=== PATIENT | male | born 1975 | race Caucasian/White ===

== ENCOUNTER 2018-02-10 05:28 | Inpatient (IN) | payer MEDICAID, SELFPAY ==
[2018-02-10] VITALS (23 sets, daily range): BP systolic 92–140; BP diastolic 44–76; PULSE 89–117; RESP 12–25; TEMP 36.4–37.6; O2SAT 96–100; BMI 20.2; BMI 20.5
--- NOTE | 2018-02-10 05:31 | EKG12_ITS ---
Test Reason : TACHYCARDIA Blood Pressure : / mmHG Vent. Rate : 219 BPM Atrial Rate : 219 BPM P-R Int : 000 ms QRS Dur : 086 ms QT Int : 240 ms P-R-T Axes : 067 025 045 degrees QTc Int : 458 ms Sinus rhythm T wave abnormality, consider anterior ischemia Abnormal ECG Confirmed by GOOD GEORGE, RADHA ([id number]), magazine editor FERMIN ARAYA ([id number] on 02/13/2018 3:01:11 PM Referred By: RU Confirmed By:RADHA FUNK MD
[2018-02-10 05:41] LABS: Bedside Glucose > 500 mg/dL (70-110)
[2018-02-10] MEDS: 0.9% Normal Saline 1,000 ML 999 ML IV ×2 (05:50→07:00)
[2018-02-10 06:06] LABS: Allen Test POS; Base Excess -16 mmol/L (-2 to +2); Blood Gas Specimen Type ART; O2 Delivery Device Room Air; PO2 108 mmHG (75-100); SITE L Radial; SO2 98 % (95-99); Time Given 555; Total Carbon Dioxide 11 mmol/L; pCO2 18.5 mmHg (35-45); pH 7.34 (7.35-7.45)
[2018-02-10 06:31] LABS: Bedside Glucose > 500 mg/dL (70-110)
[2018-02-10 06:34] LABS: Absolute Lymphocyte Count 1.98 X10^3/ul (0.83-4.51); Absolute Neutrophil Count 20.6 X10^3/uL (2.0-7.7); Basophil# 0.03 X10^3/uL; Basophil% 0.1 % (0-1); Hematocrit 42.9 % (40-54); Hemoglobin 14.5 g/dl (13.0-16.5); Lymphocyte # 1.98 X10^3/ul (4.0); Lymphocyte % 7.8 % (19-41); Mean Corp Hgb Conc 33.8 g/gl (32-36); Mean Corpuscular Hgb 32.4 pg (27.0-32.0); Mean Platelet Vol. 10.8 fl (6.2-12.0); Monocyte# 2.44 X10^3/uL; Monocyte% 9.7 % (0-10); Neutrophil % 81.6 % (47-70); Platelet Count 319 K/mm3 (150-450); RBC Distribution Width CV 13.1 % (11.6-14.6); RBC Distribution Width SD 45.6 fl (35.1-43.9); Red Blood Count 4.47 M/mm3 (4.6-6.2); White Blood Count 25.2 K/mm3 (4.4-11.0)
[2018-02-10 06:35] LABS: Anion Gap 36 (5-15); BUN 25 mg/dL (7-18); Chloride 77 mmol/L (98-107); Creatinine, Serum 1.67 mg/dL (0.70-1.30); Differential Indicated SCAN CRITERIA MET; EST Glomerular Filtration Rate 48 mL/min (>60); Est Glom Filt Rate - Afr Amer 58 mL/min (>60); Estimated Creatinine Clearance 55.66 ml/min; Glucose 616 mg/dL (74-106); POSITIVE COUNT NO; POSITIVE DIFFERENTIAL YES; POSITIVE MORPHOLOGY YES; Potassium 5.3 mmol/L (3.5-5.1); Sodium Level 125 mmol/L (136-145)
--- NOTE | 2018-02-10 06:40 | ED.VISSUMM ---
- ER Visit Summary Date of Service: 02/10/18 Chief Complaint: [Vomiting] History of Present Illness: The patient is a 42 M [presents the emergency department with vomiting that started around 7 PM yesterday. Patient states that he is vomited more than 10 times. Patient denies any diarrhea. Patient denies any abdominal pain. Patient last checked his blood sugar about 3 hours ago and it was 320.] Physical Examination: [HEENT-PERRLA, EOMI. Cranial nerves II through XII grossly intact. TMs clear. Mucous membranes dry. No adenopathy. Cardiovascular-regular and tachycardic. No murmurs auscultated. Lungs-clear to auscultation, chest wall stable without crepitus or subcu emphysema Abdomen-normoactive bowel sounds, soft, nontender, no rebound or rigidity, no peritoneal signs. Extremities-intact ?4, normal range of motion, normal pulses, atraumatic] Test Results: [EKG obtained shows sinus rhythm with a ventricular rate of 110 bpm with some nonspecific ST changes. When compared with prior EKG from November 14, 2016 no new changes noted. CBC with differential obtained showed a white blood cell count of 25,000 hemoglobin 14.5 hematocrit 43 platelets 319. Chemistry showed a sodium 125 potassium 5.3 chloride 77 CO2 12 glucose 616 BUN 25 creatinine 1.67. Patient had moderate acetone in the serum. ABG showed pH of 7.339 CO2 was 18 bicarb 9.9 sat 98% on room air.] Emergency Department Course and Treatment: [IV lines established patient was given a liter normal same fluid bolus and patient was started on an insulin drip at 0.1 U/kg.] Treatment Plan: [Admit to ICU. I spoke with vocational rehabilitation counselor Dr. Bangura. Patient will be discussed with hospitalist.] I suspect the elevated white blood cell count likely reactive as patient really has not had any recent illness or fevers. Disposition: [Admit] Impression: [Diabetic ketoacidosis] This note was generated with [employer] dictation software. It may contain incorrect words, spelling, and punctuation that were not noted in review of the chart prior to signing ED Disposition - Plan for ED Patient: Chief Complaint: Nausea/Vomiting Referrals: Moni Cintron MD [Primary Care Provider] -
--- NOTE | 2018-02-10 06:44 | ED.DCSUM_ITS ---
- ER Visit Summary Date of Service: 02/10/18 Chief Complaint: [Vomiting] History of Present Illness: The patient is a 42 M [presents the emergency department with vomiting that started around 7 PM yesterday. Patient states that he is vomited more than 10 times. Patient denies any diarrhea. Patient denies any abdominal pain. Patient last checked his blood sugar about 3 hours ago and it was 320.] Physical Examination: [HEENT-PERRLA, EOMI. Cranial nerves II through XII grossly intact. TMs clear. Mucous membranes dry. No adenopathy. Cardiovascular-regular and tachycardic. No murmurs auscultated. Lungs-clear to auscultation, chest wall stable without crepitus or subcu emphysema Abdomen-normoactive bowel sounds, soft, nontender, no rebound or rigidity, no peritoneal signs. Extremities-intact ?4, normal range of motion, normal pulses, atraumatic] Test Results: [EKG obtained shows sinus rhythm with a ventricular rate of 110 bpm with some nonspecific ST changes. When compared with prior EKG from November 14, 2016 no new changes noted. CBC with differential obtained showed a white blood cell count of 25,000 hemoglobin 14.5 hematocrit 43 platelets 319. Chemistry showed a sodium 125 potassium 5.3 chloride 77 CO2 12 glucose 616 BUN 25 creatinine 1.67. Patient had moderate acetone in the serum. ABG showed pH of 7.339 CO2 was 18 bicarb 9.9 sat 98% on room air.] Emergency Department Course and Treatment: [IV lines established patient was given a liter normal same fluid bolus and patient was started on an insulin drip at 0.1 U/kg.] Treatment Plan: [Admit to ICU. I spoke with route aide Dr. Bangura. Patient will be discussed with hospitalist.] I suspect the elevated white blood cell count likely reactive as patient really has not had any recent illness or fevers. Disposition: [Admit] Impression: [Diabetic ketoacidosis] This note was generated with [employer] dictation software. It may contain incorrect words, spelling, and punctuation that were not noted in review of the chart prior to signing ED Disposition - Plan for ED Patient: Chief Complaint: Nausea/Vomiting Referrals: Moni Cintron MD [Primary Care Provider] -
[2018-02-10 06:53] LABS: Differential Comment SCANNED
[2018-02-10 07:00] LABS: Bedside Glucose > 500 mg/dL (70-110)
--- NOTE | 2018-02-10 07:18 | NURSING ---
DR ASPEN VEGA
[2018-02-10 07:19] LABS: Mucous, Urine 0 SEEN /hpf (<or=2+); Red Blood Cells-Urine 0 SEEN /hpf (0-5); White Blood Cells 0 SEEN /hpf (0-5)
--- NOTE | 2018-02-10 07:25 | HP.PCM_ITS ---
Problem List (1) DKA (diabetic ketoacidoses) Status: Acute Qualifiers: (2) Dental caries Status: Acute (3) CAD (coronary artery disease) Status: Chronic Qualifiers: (4) History of alcohol abuse Status: Chronic (5) Cardiomyopathy Status: Suspected Qualifiers: History of Present Illness Date of Admission: 02/10/18 Chief Complaint: I think I am in DKA The patient is a 42 year old M with a past medical history of diabetes mellitus , alcoholism, cardiomyopathy, or dental hygiene coronary artery disease who presented to the emergency department at [facility] on 02/10/18 stating he thought he was in DKA. Vital signs at presentation to the emergency room were temp 97.6, pulse rate 117, blood pressure 140/76, respiratory rate 22 and he was 100% saturated on room air. Significant lab included a elevated white blood cell count 25.2 with 82% neutrophils. Hemoglobin is 14.5 and platelets are 319,000. ABG showed a pH of 7.34 with a PCO2 of 18.5. and PO2 of 108 on RA. Sodium is 125 and potassium is 5.3 with a BUN of 25 and creatinine of 1.67. Anion gap is 36. Glucose was 616 and acetone was moderate. No UA was done. No chest x-ray was done. He is being admitted to the ICU with a diagnosis of DKA. ICU/DKA protocol has been initiated. He follows with [facility] and he tells me his last HGBA1C was 6.8. He drinks less than he used to but still has 7 shots of vodka 2-3 times a week. No fevers , chills, cough, wounds, diarrhea, no sick contacts, no dysuria but, has had polyuria. Denies any hx of Pancreatitis or cholecystitis. Past Medical History Past Medical History (Chronic Problems): Chronic Problems (Last Updated 02/08/18 @ 11:27 by Jenifer Germain) History of alcohol abuse (Chronic) CAD (coronary artery disease) (Chronic) Allergies zinc Allergy (Intermediate, Verified 02/08/18 11:14) Hives Home Medications: Ambulatory Orders Medication Instructions Recorded Aspirin [Low Dose Aspirin EC] 81 mg PO DAILY 11/14/16 lisinopril 2.5 mg tablet 2.5 mg PO QDAY #90 tab 11/02/17 blood sugar diagnostic strips See Dose Instructions .ROUTE 01/15/18 .MEDSUPPLY #120 ea escitalopram 20 mg tablet 20 mg PO QDAY 01/18/18 insulin glargine (U-100) 100 20 unit SC QDAY ml 01/18/18 unit/mL subcutaneous solution insulin lispro (U-100) 100 unit/mL See Label Instructions SC TID ml 01/18/18 subcutaneous pen levetiracetam 500 mg tablet 500 mg PO Q12H 01/18/18 mirtazapine 15 mg tablet 15 mg PO QHS 01/18/18 Surgical History: noncontributory Psychiatric History: No pertinent psych hx Lives: Spouse/ Significant Other Smoking Status: Current every day smoker Tobacco Use: Cigarettes Alcohol: Heavy Drugs: Marijuana - *Family History Maternal History Items: No pertinent history Review of Systems Constitutional: Denies: Chills, Fever, Weight Change Eyes: Denies: Blurred vision HEENT: Denies: Head Aches, Sinus Congestion, Sinus Drainage Cardiovascular: Denies: Chest Pain, Palpitations Respiratory: Denies: Cough, Shortness of breath at rest, Sputum production Gastrointestinal: Reports: Abdominal Pain, Nausea, Vomiting. Denies: Hematemesis, Hematochezia Genitourinary: Reports: Frequency, - - increased urine output the past few days. Denies: Dysuria Musculoskeletal: Denies: Joint Pain, Joint Tenderness Skin: Denies: Jaundice, Rash, Wounds Neurological: Denies: Numbness, Tingling, Focal weakness Psychiatric: Denies: Anxiety, Depression, Homicidal Ideations, Suicidal Ideations Endocrine: Denies: Change in Body Habitus Hematologic/ Lymphatic: Denies: Hx of blood clot VTE Information - Inpt Only VTE Present on Admission: No VTE Mechan Device Prophylaxis: SCD's, Knee High CLAUDIA Hose VTE Pharm Prophylaxis ordered?: Yes - Physical Exam General: Alert, Cooperative, - - a little slow to answer questions and not knowing his baseline I think he is likely encephalopathic from DKA and dehydration HEENT: Atraumatic, PERRLA, EOMI, Normocephalic Oral: No Gingival or Mucosal Lesions/ Ulcerations, Dry Mucosa Neck: Supple, No JVD, Negative Carotid Bruits Lungs: Clear to auscultation, Normal air movement, No rhonchi, No wheeze, No rales Cardiovascular: Regular rate, Regular Rhythm, Normal S1, Normal S2, No murmurs, No Ectopic Activity, No rub noted, No Gallop, Tachycardic Abdomen: Bowel Sounds Present, Soft, Non-Distended, Tender - mild tenderness to palpation but, no guarding with palpation Extremities: No clubbing, No cyanosis, No edema, No Calf Tenderness, Diminished Peripheral Pulses Skin: No rashes, No breakdown Musculoskeletal: No Muscle Wasting Neurological: Cranial nerves II-XII grossly intact, Neuro grossly intact Psych/Mental Status: Appropriate Vital Signs Temp Pulse Resp BP Pulse Ox 97.6 F L 108 H 18 114/44 L 96 02/10/18 05:33 02/10/18 06:59 02/10/18 06:59 02/10/18 06:59 02/10/18 06:59 Oxygen Delivery Method Room Air Weight: 149 lb 0.52 oz Body Mass Index (BMI) 20.2 Finger Stick Blood Glucose 545 Laboratory Tests Past 24 Hrs 02/10/18 02/10/18 02/10/18 05:45 05:45 05:45 WBC 25.2 H RBC 4.47 L Hgb 14.5 Hct 42.9 MCV 96.0 H MCH 32.4 H MCHC 33.8 RDW 13.1 RDW Differential 45.6 H Plt Count 319 MPV 10.8 Immature Gran % (Auto) 0.800 Neut % (Auto) 81.6 H Lymph % (Auto) 7.8 L [place] % (Auto) 9.7 Eos % (Auto) 0.0 Baso % (Auto) 0.1 Absolute Neuts (auto) 20.6 H Absolute Lymphs (auto) 1.98 Total Counted Not Reportable Differential Comment SCANNED Diff Path Review May foll Specimen Type Sample Site pH Bicarbonate Actual POC Total CO2 Base Excess O2 Saturation ABG pCO2 ABG pO2 Anurag Test O2 Delivery Device Blood Gas Notified Whom Blood Gas Notified Time Sodium 125 L Potassium 5.3 H Chloride 77 L Carbon Dioxide 12.0 L Anion Gap 36 H BUN 25 H Creatinine 1.67 H Estim Creat Clear Calc 55.66 Est GFR (MDRD) Af Amer 58 L Est GFR (MDRD) Non-Af 48 L BUN/Creatinine Ratio 15.0 Glucose 616 H* Calcium 8.0 L Acetone Level MODERATE H 02/10/18 02/10/18 05:45 05:54 WBC RBC Hgb Hct MCV MCH MCHC RDW RDW Differential Plt Count MPV Immature Gran % (Auto) Neut % (Auto) Lymph % (Auto) [place] % (Auto) Eos % (Auto) Baso % (Auto) Absolute Neuts (auto) Absolute Lymphs (auto) Total Counted Differential Comment Diff Path Review Specimen Type ART Sample Site L Radial pH 7.34 L Bicarbonate Actual 10.0 L POC Total CO2 11 Base Excess -16 L O2 Saturation 98 ABG pCO2 18.5 L* ABG pO2 108 H Anurag Test POS O2 Delivery Device Room Air Blood Gas Notified Whom ED Blood Gas Notified Time 555 Sodium Pending Potassium Pending Chloride Pending Carbon Dioxide Pending Anion Gap Pending BUN Pending Creatinine Pending Estim Creat Clear Calc Est GFR (MDRD) Af Amer Pending Est GFR (MDRD) Non-Af Pending BUN/Creatinine Ratio Pending Glucose Pending Calcium Pending Acetone Level POC Glucose 02/10/18 02/10/18 02/10/18 06:54 06:23 05:36 POC Glucose > 500 H* > 500 H* > 500 H* Assessment/Plan Impressions 1. DKA 2. DM I 3. Heavy alcohol use 4. tobacco dependence 5. Hyponatremia - due to severe dehydration 6. ELIZABETH 7. Hx of CAD with elevated troponin - Tall peaked T waves in the precordial leads - suspect due to hypokalemia but may also be seen with ischemia. will order CE's 8. Leukocytosis - likely due to stress - no obvious source of infection and he is afebrile 9. Proteinuria 10. Hypocalcemia 11. seizure disorder - on Keppra Admit to the ICU ICU/DKA protocol initiated DVT prophylaxis with Lovenox and SCD's NPO CE's - no chest pain but with tall peaked T waves on the EKG and he has a hx of CAD and we have no reason for DKA? recheck lab in the AM Smoking cessation counselling given Alcohol cessation counselling given - has been to rehab in the past
[2018-02-10 07:27] LABS: Color, Urine Yellow (Yellow); Glucose, Dipstick 1000 mg/dl (Normal); Leukocyte Esterase-Dipstick Negative /ul (Negative); Nitrite-Dipstick Negative (Negative); Occult Blood-Urine 10 /ul (Negative); Protein-Dipstick 15 mg/dl (Negative); Urine Bilirubin Dipstick Negative (Negative); Urine Clarity Clear (Clear); Urine Urobilinogen Normal (Normal)
[2018-02-10 07:28] LABS: Ketone-Dipstick 150 mg/dl (Negative)
[2018-02-10 07:37] LABS: Bacteria RARE /hpf (None Seen); Squamous Epithelial Cells - UA 0-5 SEEN /hpf (0-5)
--- NOTE | 2018-02-10 07:37 | NURSING ---
DR LOUISE IN ER
--- NOTE | 2018-02-10 07:42 | NURSING ---
ICU DKA, ELIZABETH SEMENTI
--- NOTE | 2018-02-10 07:56 | ED.RN ---
bg 455 ([id number]) FROM LAST INSULIN. INSULIN DRIP DECREASED PER PROTOCOL FROM 4.7 TO 0.7UNITS PER HOUR
[2018-02-10 08:05] LABS: Bedside Glucose 455 mg/dL (70-110)
--- NOTE | 2018-02-10 08:41 | NURSING ---
ICU7
[2018-02-10 08:47] LABS: Alcohol, Blood (Medical)-Serum < 3.0 mg/dL
[2018-02-10] MEDS: ChlorproMAZINE 50 MG/2 ML Ampul 25 MG IM (08:49)
[2018-02-10 09:01] LABS: Bedside Glucose 402 mg/dL (70-110)
--- NOTE | 2018-02-10 10:15 | RAD_ITS ---
STUDY: X-RAY CHEST REASON FOR EXAM: Male, 42 years old. Leukocytosis TECHNIQUE: Single view of the chest was obtained COMPARISON: November 04, 2016 FINDINGS: No lung consolidation, pleural effusion or pneumothorax. Cardiac size is within normal limits. Osseous structures demonstrate no acute abnormalities. Perihilar calcified granuloma. RAD/Chest 1 View (Portable) IMPRESSION: Mild pulmonary vascular congestion. No evidence for focal airspace consolidation. Electronically Signed: Richard Frazier, at 10:44 EDT Tel , Service support ,
[2018-02-10 11:06] LABS: Bedside Glucose 370 mg/dL (70-110)
[2018-02-10] MEDS: 0.9% Normal Saline 1,000 ML 500 ML IV (11:12)
[2018-02-10 11:16] LABS: AST(SGOT) 61 U/L (15-37); Alanine Aminotransfer ALT/SGPT 38 U/L (16-61); Albumin, Serum 3.9 g/dL (3.2-5.0); Alkaline Phosphatase 98 U/L (45-117); Bilirubin, Direct 0.24 mg/dL (0.00-0.30); Globulin 2.7 g/dL (2.2-4.2); Protein, Total 6.6 g/dL (6.4-8.2)
[2018-02-10 11:21] LABS: Anion Gap 25 (5-15); BUN 24 mg/dL (7-18); Calcium,Total 6.8 mg/dL (8.5-10.1); Chloride 90 mmol/L (98-107); Creatinine, Serum 1.41 mg/dL (0.70-1.30); EST Glomerular Filtration Rate 59 mL/min (>60); Est Glom Filt Rate - Afr Amer 71 mL/min (>60); Estimated Creatinine Clearance 66.99 ml/min; Glucose 341 mg/dL (74-106); Magnesium 1.7 mg/dL (1.6-2.6); Potassium 4.8 mmol/L (3.5-5.1); Sodium Level 127 mmol/L (136-145)
[2018-02-10 11:21] LABS: Bedside Glucose 362 mg/dL (70-110)
[2018-02-10 11:22] LABS: Hemoglobin A1c 8.9 % (4.2-6.3)
[2018-02-10] MEDS: Enoxaparin 40 MG/0.4 ML Syringe SC (12:12)
[2018-02-10 13:05] LABS: Amphetamine Urine VISTA NEGATIVE (<1000 ng/mL); Barbiturate Urine VISTA NEGATIVE (< 200 ng/mL); Benzodiazepine Urine VISTA NEGATIVE (< 200 ng/mL); Cocaine Urine VISTA NEGATIVE (< 300 ng/mL); Ecstacy Urine VISTA NEGATIVE (< 500 ng/mL); Methadone Urine VISTA NEGATIVE (< 300 ng/mL); PCP Urine VISTA NEGATIVE (< 25 ng/mL); THC Urine VISTA NEGATIVE (< 50 ng/mL); Vista UDS pH Range 5
[2018-02-10 13:11] LABS: Bedside Glucose 321 mg/dL (70-110)
[2018-02-10] MEDS: 0.9% Normal Saline 1,000 ML 250 ML IV (13:30)
[2018-02-10 14:44] LABS: Anion Gap 24 (5-15); BUN 24 mg/dL (7-18); BUN/Creat Ratio 17.6 RATIO (10-20); Chloride 93 mmol/L (98-107); Creatinine, Serum 1.36 mg/dL (0.70-1.30); EST Glomerular Filtration Rate 61 mL/min (>60); Est Glom Filt Rate - Afr Amer 74 mL/min (>60); Estimated Creatinine Clearance 69.46 ml/min; Glucose 302 mg/dL (74-106); Sodium Level 129 mmol/L (136-145)
[2018-02-10 15:40] LABS: Bedside Glucose 310 mg/dL (70-110)
[2018-02-10 15:41] LABS: Bedside Glucose 302 mg/dL (70-110)
[2018-02-10 15:46] LABS: Bedside Glucose 279 mg/dL (70-110)
[2018-02-10 16:45] LABS: Bedside Glucose 235 mg/dL (70-110)
[2018-02-10] MEDS: Dext 5%-0.45% NS 1,000 ML 125 ML IV (16:45)
[2018-02-10 17:52] LABS: Bedside Glucose 258 mg/dL (70-110)
[2018-02-10 18:29] LABS: Anion Gap 17 (5-15); BUN 20 mg/dL (7-18); BUN/Creat Ratio 14.7 RATIO (10-20); Calcium,Total 6.7 mg/dL (8.5-10.1); Chloride 98 mmol/L (98-107); Creatinine, Serum 1.36 mg/dL (0.70-1.30); EST Glomerular Filtration Rate 61 mL/min (>60); Est Glom Filt Rate - Afr Amer 74 mL/min (>60); Estimated Creatinine Clearance 69.46 ml/min; Glucose 238 mg/dL (74-106); Potassium 4.1 mmol/L (3.5-5.1); Sodium Level 133 mmol/L (136-145)
[2018-02-10 18:56] LABS: Bedside Glucose 232 mg/dL (70-110)
[2018-02-10 19:56] LABS: M R Staph aureus DNA By PCR Negative (Negative); Probe Check PASS; Specimen Processing Control PASS
[2018-02-10] MEDS: 0.9% NaCl Peripheral Flush Adult/Peds IV (21:58)
[2018-02-10 22:05] LABS: Bedside Glucose 216 mg/dL (70-110)
[2018-02-10 22:05] LABS: Bedside Glucose 217 mg/dL (70-110)
[2018-02-10 22:05] LABS: Bedside Glucose 165 mg/dL (70-110)
[2018-02-10 22:24] LABS: Anion Gap 9 (5-15); BUN 17 mg/dL (7-18); BUN/Creat Ratio 13.3 RATIO (10-20); Calcium,Total 7.1 mg/dL (8.5-10.1); Chloride 101 mmol/L (98-107); Creatinine, Serum 1.28 mg/dL (0.70-1.30); EST Glomerular Filtration Rate 66 mL/min (>60); Est Glom Filt Rate - Afr Amer 79 mL/min (>60); Glucose 170 mg/dL (74-106); Potassium 3.5 mmol/L (3.5-5.1); Sodium Level 135 mmol/L (136-145)
[2018-02-10] MEDS: 0.9% NaCl IVPB Med Flush (250 mL) 15 ML IV (23:09)
[2018-02-11] VITALS (17 sets, daily range): BP systolic 96–135; BP diastolic 58–86; PULSE 72–93; RESP 12–17; TEMP 36.6–36.9; O2SAT 97–100
[2018-02-11 00:41] LABS: Bedside Glucose 144 mg/dL (70-110)
[2018-02-11 00:41] LABS: Bedside Glucose 144 mg/dL (70-110)
[2018-02-11] MEDS: Dext 5%-0.45% NS 1,000 ML 125 ML IV (02:01)
[2018-02-11 03:57] LABS: BUN 13 mg/dL (7-18); Creatinine, Serum 1.17 mg/dL (0.70-1.30); Estimated Creatinine Clearance 80.74 ml/min; Glucose 113 mg/dL (74-106)
[2018-02-11 03:58] LABS: Anion Gap 8 (5-15); BUN/Creat Ratio 11.1 RATIO (10-20); Chloride 104 mmol/L (98-107); EST Glomerular Filtration Rate 73 mL/min (>60); Est Glom Filt Rate - Afr Amer 88 mL/min (>60); Potassium 3.5 mmol/L (3.5-5.1); Sodium Level 137 mmol/L (136-145)
[2018-02-11] MEDS: 0.9% NaCl Peripheral Flush Adult/Peds IV ×2 (04:23→21:08)
--- NOTE | 2018-02-11 06:43 | PN_ITS ---
Subjective: 42-year-old male with a past medical history of diabetes mellitus type 1, coronary artery disease, tobacco dependence, heavy alcohol use and seizure disorder admitted to the hospital with DKA, dehydration and ELIZABETH. No obvious infection at admission. Troponin was 0.43 at admission and he had no chest pain but did have tall peaked T waves on the EKG and he continues to smoke. TMAX: 99.6, afebrile this morning Vital signs: Her rate has been 83-93 for the past 12 hours. Blood pressures have ranged from 92/59-100 and 12/64 for the past 12 hours. He is 99-100% saturated on room air. Fluid balance: Fluid balance since admission is +[id number]. Urine output: Urine output on 02/10/2018 was 1100 cc and he had an additional 650 overnight. Weight: Weight has increased from 151 pounds to 159 pounds. All radiologic testing was reviewed: Chest x-ray to admission showed no pulmonary vascular congestion, pleural effusions or infiltrates. All labs were personally reviewed: Bone was 0.43 at admission and has trended down to 0.2 today. Sodium is 137 today with a potassium of 3.5 and a serum bicarb of 25. Creatinine is now down to 1.17 from 1.67 at admission. Blood glucose at 3:30 AM was 113. Calcium was 7.0. Phosphorus is very low at 0.9 and the magnesium is 1.8 today. AST is 94 with an ALT of 48 which is suspicious for alcoholic hepatitis. Patient denies any history of DTs. Microbiology: Urine culture is pending Telemetry:NSR/ST, PVC's and occasional couplets Objective: denies any chest pain, shortness of breath, palpitations, nausea, abdominal pain. His only complaint today is bilateral ear pain and mild headache. Denies any dyspnea on exertion or chest discomfort with exertion in the past few months. Cannot recall when his last stress test was. EKG: Peaked T waves have resolved, no suspicious ST or T-wave changes - Physical Exam General: Alert, Oriented x3, Cooperative, No apparent distress, Well developed, Well nourished HEENT: Atraumatic, PERRLA, EOMI, Normocephalic, TM's Clear, EAC Clear, - Oral: Moist Mucosa, No Gingival or Mucosal Lesions/ Ulcerations Neck: Supple, No JVD, Negative Carotid Bruits, No Nodes, No Nuchal Rigidity, Trachea Midline Lungs: Clear to auscultation, No rhonchi, No wheeze, No rales Cardiovascular: Regular rate, Regular Rhythm, Normal S1, Normal S2, No rub noted , No Gallop Abdomen: Bowel Sounds Present, Soft, Non Tender, Non-Distended, No Hepato- splenomegaly Extremities: No clubbing, No cyanosis, No edema, Capillary Refill Less than 3 Seconds, No Calf Tenderness, Peripheral Pulses Normal Skin: No rashes, No breakdown Musculoskeletal: No Muscle Wasting Neurological: Cranial nerves II-XII grossly intact, Neuro grossly intact Psych/Mental Status: Normal Affect, Appropriate Vital Signs Temp Pulse Resp BP Pulse Ox 97.8 F 83 17 104/69 100 02/11/18 04:00 02/11/18 05:00 02/11/18 05:00 02/11/18 05:00 02/11/18 05:00 Oxygen Flow Rate (L/min) 2 Oxygen Delivery Method Room Air Weight: 159 lb 6.307 oz Body Mass Index (BMI) 20.5 Finger Stick Blood Glucose 321 Intake and Output for Last 24 Hours 02/09/18 02/10/18 02/11/18 23:59 23:59 23:59 Intake Total 3273.5 / 3273.5 Output Total 1100 / 1100 Balance 2173.5 / 2173.5 Laboratory Tests Past 24 Hrs 02/10/18 02/10/18 02/10/18 10:45 10:45 10:45 Sodium 127 L Potassium 4.8 Chloride 90 L Carbon Dioxide 12.0 L Anion Gap 25 H BUN 24 H Creatinine 1.41 H Estim Creat Clear Calc 66.99 Est GFR (MDRD) Af Amer 71 Est GFR (MDRD) Non-Af 59 L BUN/Creatinine Ratio 17.0 Glucose 341 H Hemoglobin A1c 8.9 H Calcium 6.8 L Magnesium 1.7 Total Bilirubin 1.30 H Direct Bilirubin 0.24 AST 61 H ALT 38 Alkaline Phosphatase 98 Troponin I Total Protein 6.6 Albumin 3.9 Globulin 2.7 MRSA (PCR) 02/10/18 02/10/18 02/10/18 13:15 13:15 13:22 Sodium 129 L Potassium 5.0 Chloride 93 L Carbon Dioxide 12.0 L Anion Gap 24 H BUN 24 H Creatinine 1.36 H Estim Creat Clear Calc 69.46 Est GFR (MDRD) Af Amer 74 Est GFR (MDRD) Non-Af 61 BUN/Creatinine Ratio 17.6 Glucose 302 H Hemoglobin A1c Calcium 7.0 L Magnesium Total Bilirubin Direct Bilirubin AST ALT Alkaline Phosphatase Troponin I 0.43 H Cancelled Total Protein Albumin Globulin MRSA (PCR) 02/10/18 02/10/18 02/10/18 16:45 18:00 18:00 Sodium 133 L Potassium 4.1 Chloride 98 Carbon Dioxide 18.0 L Anion Gap 17 H BUN 20 H Creatinine 1.36 H Estim Creat Clear Calc 69.46 Est GFR (MDRD) Af Amer 74 Est GFR (MDRD) Non-Af 61 BUN/Creatinine Ratio 14.7 Glucose 238 H Hemoglobin A1c Calcium 6.7 L Magnesium Total Bilirubin Direct Bilirubin AST ALT Alkaline Phosphatase Troponin I 0.40 H Total Protein Albumin Globulin MRSA (PCR) Negative 02/10/18 02/10/18 02/11/18 21:00 21:00 03:35 Sodium 135 L 137 Potassium 3.5 3.5 Chloride 101 104 Carbon Dioxide 25.0 25.0 Anion Gap 9 8 BUN 17 13 Creatinine 1.28 1.17 Estim Creat Clear Calc 73.80 80.74 Est GFR (MDRD) Af Amer 79 88 Est GFR (MDRD) Non-Af 66 73 BUN/Creatinine Ratio 13.3 11.1 Glucose 170 H 113 H Hemoglobin A1c Calcium 7.1 L 7.0 L Magnesium Total Bilirubin Direct Bilirubin AST ALT Alkaline Phosphatase Troponin I 0.30 H Total Protein Albumin Globulin MRSA (PCR) 02/11/18 03:35 Sodium Potassium Chloride Carbon Dioxide Anion Gap BUN Creatinine Estim Creat Clear Calc Est GFR (MDRD) Af Amer Est GFR (MDRD) Non-Af BUN/Creatinine Ratio Glucose Hemoglobin A1c Calcium Magnesium Total Bilirubin Direct Bilirubin AST ALT Alkaline Phosphatase Troponin I 0.20 H Total Protein Albumin Globulin MRSA (PCR) POC Glucose 02/10/18 02/10/18 02/10/18 23:57 23:03 21:56 POC Glucose 144 H 144 H 165 H 02/10/18 02/10/18 02/10/18 21:00 20:01 18:48 POC Glucose 217 H 216 H 232 H 02/10/18 02/10/18 02/10/18 17:48 16:42 15:40 POC Glucose 258 H 235 H 279 H 03/02/10/18 02/10/18 14:29 13:15 12:06 POC Glucose 302 H 310 H 321 H 02/10/18 02/10/18 02/10/18 11:15 10:14 08:54 POC Glucose 362 H 370 H 402 H 02/10/18 07:50 POC Glucose 455 H* Medical Necessity - Tobacco Use Smoking Status: Current every day smoker Tobacco Use: Cigarettes Assessment/Plan Impressions 1. DKA - resolved 2. DM I - HGBA1C is 8.9 3. Heavy alcohol use - AST> ALT, suspect possible alcoholic hepatitis 4. tobacco dependence 5. Hyponatremia 6. ELIZABETH 7. NSTEMI possibly type II due to demand ischemia - Tall peaked T waves in the precordial leads - suspect due to hyerkalemia but may also be seen with ischemia. Tall peaked T waves have resolved 8. Leukocytosis - due to stress, resolved in 24 hours and has a normal diff today as well 9. Proteinuria 10. Hypocalcemia 11. seizure disorder - on Keppra 12. Hypophosphatemia Transfer to PCU Started on a diet this AM and Insulin infusion has been discontinued Nuclear stress in the AM - if abnormal will need a cath Smoking cessation counselling given again today Continue follow up with [facility] post DC Alcohol cessation advised Supplement phosphorus Code Visit Inpatient E&M: 39731 Subs Hosp L3
--- NOTE | 2018-02-11 07:00 | EKG12_ITS ---
Test Reason : ELEV TROPONIN Blood Pressure : / mmHG Vent. Rate : 090 BPM Atrial Rate : 090 BPM P-R Int : 124 ms QRS Dur : 090 ms QT Int : 382 ms P-R-T Axes : 063 039 055 degrees QTc Int : 467 ms Normal sinus rhythm Normal ECG When compared with ECG of 10-FEB-2018 05:40, MANUAL COMPARISON REQUIRED, DATA IS UNCONFIRMED Confirmed by ALLISON SALINAS ([id number]), brands editor FERMIN ARAYA ([id number]) on 02/15/2018 2:53:03 PM Referred By: ASPEN Confirmed By:ALLISON SALINAS
[2018-02-11 07:18] LABS: Absolute Lymphocyte Count 2.25 X10^3/ul (0.83-4.51); Absolute Neutrophil Count 5.5 X10^3/uL (2.0-7.7); Eosinophil# 0.05 X10^3/uL; Eosinophils% 0.6 % (0-5); Hematocrit 32.9 % (40-54); Hemoglobin 11.6 g/dl (13.0-16.5); Lymphocyte # 2.25 X10^3/ul (4.0); Lymphocyte % 26.4 % (19-41); Mean Corp Hgb Conc 35.3 g/gl (32-36); Mean Corpuscular Hgb 32.7 pg (27.0-32.0); Mean Corpuscular Volume 92.7 fL (80-94); Mean Platelet Vol. 9.7 fl (6.2-12.0); Monocyte# 0.75 X10^3/uL; Monocyte% 8.8 % (0-10); Neutrophil # 5.46 X10^3/uL (2.7-7.7); Neutrophil % 64.1 % (47-70); Platelet Count 189 K/mm3 (150-450); RBC Distribution Width CV 12.8 % (11.6-14.6); RBC Distribution Width SD 43.5 fl (35.1-43.9); Red Blood Count 3.55 M/mm3 (4.6-6.2); White Blood Count 8.5 K/mm3 (4.4-11.0)
[2018-02-11 07:24] LABS: POSITIVE COUNT NO; POSITIVE DIFFERENTIAL NO; POSITIVE MORPHOLOGY NO
[2018-02-11 07:42] LABS: ALB/GLOB Ratio 1.3 RATIO (0.9-2.4); AST(SGOT) 94 U/L (15-37); Alanine Aminotransfer ALT/SGPT 48 U/L (16-61); Albumin, Serum 3.1 g/dL (3.2-5.0); Alkaline Phosphatase 73 U/L (45-117); Anion Gap 11 (5-15); BUN 11 mg/dL (7-18); BUN/Creat Ratio 10.1 RATIO (10-20); Calcium,Total 7.2 mg/dL (8.5-10.1); Chloride 102 mmol/L (98-107); Creatinine, Serum 1.09 mg/dL (0.70-1.30); EST Glomerular Filtration Rate 79 mL/min (>60); Est Glom Filt Rate - Afr Amer 95 mL/min (>60); Globulin 2.4 g/dL (2.2-4.2); Glucose 156 mg/dL (74-106); Magnesium 1.8 mg/dL (1.6-2.6); Potassium 3.5 mmol/L (3.5-5.1); Protein, Total 5.5 g/dL (6.4-8.2); Sodium Level 137 mmol/L (136-145)
[2018-02-11 07:59] LABS: Phosphorus 0.9 mg/dL (2.5-4.9)
[2018-02-11] MEDS: Aspirin E.C. 81 MG Tablet PO (08:24)
[2018-02-11] MEDS: Acetaminophen 325 MG Tablet 650 MG PO (08:24)
[2018-02-11 08:30] LABS: Bedside Glucose 135 mg/dL (70-110)
[2018-02-11 08:41] LABS: Bedside Glucose 179 mg/dL (70-110)
[2018-02-11] MEDS: levETIRAcetam 500 MG Tablet PO ×2 (09:50→21:07)
[2018-02-11] MEDS: Escitalopram Oxalate 20 MG Tablet PO (09:50)
[2018-02-11] MEDS: Lisinopril 2.5 MG Tablet PO (09:51)
[2018-02-11] MEDS: Enoxaparin 40 MG/0.4 ML Syringe SC (09:51)
[2018-02-11] MEDS: Aspirin 81 MG TAB.CHEW PO (09:53)
[2018-02-11 11:56] LABS: Bedside Glucose 213 mg/dL (70-110)
[2018-02-11 17:16] LABS: Bedside Glucose 119 mg/dL (70-110)
[2018-02-11] MEDS: Mirtazapine 15 MG Tablet PO (21:08)
[2018-02-11] MEDS: Na Biphos/Potassium Phosphate PACKET 1 PACKET PO (21:08)
[2018-02-12] VITALS (11 sets, daily range): BP systolic 004–133; BP diastolic 63–103; PULSE 64–88; RESP 15–63; TEMP 36.4–36.7; O2SAT 95–100
[2018-02-12 00:10] LABS: Bedside Glucose 100 mg/dL (70-110)
[2018-02-12 05:11] LABS: Hematocrit 35.3 % (40-54); Hemoglobin 12.5 g/dl (13.0-16.5); Mean Corp Hgb Conc 35.4 g/gl (32-36); Mean Corpuscular Volume 93.1 fL (80-94); Mean Platelet Vol. 9.6 fl (6.2-12.0); Platelet Count 191 K/mm3 (150-450); RBC Distribution Width CV 12.5 % (11.6-14.6); RBC Distribution Width SD 41.5 fl (35.1-43.9); Red Blood Count 3.79 M/mm3 (4.6-6.2); White Blood Count 5.8 K/mm3 (4.4-11.0)
[2018-02-12 05:31] LABS: Scan Indicated on CBC? Y/N NO
[2018-02-12 05:33] LABS: BUN 7 mg/dL (7-18); Creatinine, Serum 0.71 mg/dL (0.70-1.30); Estimated Creatinine Clearance 139.82 ml/min; Glucose 40 mg/dL (74-106)
[2018-02-12 05:34] LABS: ALB/GLOB Ratio 1.2 RATIO (0.9-2.4); AST(SGOT) 130 U/L (15-37); Alanine Aminotransfer ALT/SGPT 77 U/L (16-61); Albumin, Serum 3.1 g/dL (3.2-5.0); Alkaline Phosphatase 81 U/L (45-117); Anion Gap 10 (5-15); BUN/Creat Ratio 9.8 RATIO (10-20); Calcium,Total 8.3 mg/dL (8.5-10.1); Chloride 105 mmol/L (98-107); Cholesterol 170 mg/dL (200); EST Glomerular Filtration Rate 129 mL/min (>60); Est Glom Filt Rate - Afr Amer 156 mL/min (>60); Globulin 2.6 g/dL (2.2-4.2); High Density Lipoprotein 53 mg/dL; Magnesium 1.9 mg/dL (1.6-2.6); Phosphorus 3.3 mg/dL (2.5-4.9); Potassium 3.3 mmol/L (3.5-5.1); Protein, Total 5.7 g/dL (6.4-8.2); Sodium Level 141 mmol/L (136-145); Triglycerides 144 mg/dL; Very Low Density Lipoprotein 29 mg/dL (5-40)
[2018-02-12] MEDS: Dextrose 50%-Water 25 GM/50 ML DISP.SYRIN IV (05:37)
[2018-02-12 06:41] LABS: Bedside Glucose 113 mg/dL (70-110)
--- NOTE | 2018-02-12 07:17 | NURSING ---
Pt to stress test at this time.
[2018-02-12 08:59] LABS: PTHIN 59.1 pg/mL (18.4-80.1)
[2018-02-12] MEDS: Aspirin E.C. 81 MG Tablet PO (09:47)
[2018-02-12] MEDS: Enoxaparin 40 MG/0.4 ML Syringe SC (09:48)
[2018-02-12] MEDS: Lisinopril 2.5 MG Tablet PO (09:48)
[2018-02-12] MEDS: Escitalopram Oxalate 20 MG Tablet PO (09:48)
[2018-02-12] MEDS: levETIRAcetam 500 MG Tablet PO ×2 (09:48→22:47)
--- NOTE | 2018-02-12 09:49 | STRESSREP ---
Stress Test Report Exercise myocardial Tristen protocol. 42-year-old man with a history of chest pain. Resting EKG demonstrates sinus rhythm with a rate of 73 bpm. Resting blood pressure is 142/98 mmHg. The patient exercised according to the regular Tristen protocol for total duration of 8 minutes and 30 seconds. Patient completed 2 minutes and 30 seconds into stage III of the Tristen protocol. The maximum heart rate attained was 157 bpm which was 87% of maximum predicted heart rate maximum workload attained was 10.1 metabolic equivalents. Patient maintained sinus rhythm throughout the recording. At rest there were no ST or T-wave changes noted suggest ischemia at peak exercise no ST or T-wave changes were noted suggest ischemia no clinical angina was noted no symptoms were noted. The resting blood pressure is 148/98 with a peak blood pressure 180/90. Myocardial perfusion protocol. 12.2 mCi of sestamibi was injected at rest. The patient exercised according to regular Tristen protocol for 8 minutes and 30 seconds attaining 87% maximum predicted heart rate and a workload of 10.1 metabolic equivalents. At peak exercise 33.3 mCi of technetium 99m sestamibi was injected stress and resting images were reconstructed and compared in the short axis vertical long and horizontal long axis. Gated images were also obtained. Perfusion SPECT analysis: Review of the stress images demonstrate normal uptake of tracer noted in all areas of the myocardium. The resting images similarly demonstrated normal uptake of tracer noted in all areas of the myocardium no areas of reversibility are noted suggest ischemia no previous infarct is noted. Mild reduction of perfusion in the apex is noted on the stress and resting images of unclear significance. Gated SPECT analysis: The gated ejection fraction is noted to be 37%. There is global hypokinesis noted. Conclusion: Exercise myocardial perfusion stress test with no evidence of ischemia at a high workload. Cardiomyopathy noted.
--- NOTE | 2018-02-12 11:28 | ECHOD_ITS ---
Reason For Study: CHF Procedure This was a 2D Doppler, Color Flow transthoracic echocardiogram. Exam performed portable in ICU/CCU. Left Ventricle Normal LV size. The estimated ejection fraction is 53 %. Left ventricular systolic function is lower limits of normal. No evidence for diastolic dysfunction. No regional wall motion abnormalities noted. Right Ventricle Normal RV size. Normal systolic function. Atria Normal left atrium. Normal right atrium. Mitral Valve Normal mitral valve. Mild (1+) eccentric mitral valve insufficiency. Tricuspid Valve Normal tricuspid valve. Mild (1+) tricuspid valve insufficiency. Pulmonary artery systolic pressure is 26 mmHg. Aortic Valve Normal aortic valve. Trisinus/trileaflet aortic valve. Pulmonic Valve Normal pulmonic valve. Great Vessels Normal aortic root. The pulmonary artery is normal size. Inferior vena cava collapse with respiration. Pericardium/Pleural No pericardial effusion. MMode/2D Measurements & Calculations LVIDd: 4.9 cm IVSd: 0.93 cm Ao root diam: 3.2 cm LVIDs: 3.5 cm LVPWd: 0.97 cm LA dimension: 3.2 cm RVDd: 3.4 cm FS: 28.7 % LAV(MOD-bp): 54.9 ml LA A4 area: 21.8 cm2 RA A4 area: 15.6 cm2 LAV(MOD-bp) Indexed: 28.4 ml/m2 LAV(MOD-sp2): 43.0 ml LAV(MOD-sp4): 60.9 ml Doppler Measurements & Calculations MV E max rashad: 85.0 cm/sec Ao V2 max: 131.3 cm/sec LV V1 max: 109.4 cm/sec MV A max rashad: 56.4 cm/sec Ao max P.9 mmHg LV V1 max P.8 mmHg MV E/A: 1.5 TR max rashad: 233.5 cm/sec TR max P.9 mmHg Interpretation Summary Normal LV size. The estimated ejection fraction is 53 %. Left ventricular systolic function is lower limits of normal. No evidence for diastolic dysfunction. Mild (1+) tricuspid valve insufficiency. Ordering Physician: Tarun Oconnell Referring Physician: KRISTEN LUCAS Performed By: Leslie Whitley, RDCS, RVT
--- NOTE | 2018-02-12 11:40 | PCM.PROGNOTE ---
Subjective: Chief complaint: Follow-up after admission for DKA, acute kidney injury, non-ST elevation [place], electrolyte abnormalities and leukocytosis. Patient seen and examined. No acute events overnight. Today, he denies any symptoms. No chest pain or shortness of breath. Denied abdominal pain, nausea or vomiting. His vital signs are stable. - Physical Exam General: Alert, Oriented x3, Cooperative, No apparent distress HEENT: Atraumatic, PERRLA, EOMI Oral: Moist Mucosa, No Gingival or Mucosal Lesions/ Ulcerations Neck: Supple, No JVD, Negative Carotid Bruits, Thyroid Normal Size and Texture Lungs: Clear to auscultation, No rhonchi, No wheeze, No rales, Diminished Cardiovascular: Regular rate, Regular Rhythm, Normal S1, Normal S2, PMI Normal Abdomen: Bowel Sounds Present, Soft, Non Tender, Non-Distended, No Hepato-splenomegaly Extremities: No clubbing, No cyanosis, No edema Skin: No rashes, No breakdown Lymphatic: No Cervical, Supraclavicular, or Inguinal Adenopathy Neurological: Cranial nerves II-XII grossly intact, Neuro grossly intact Psych/Mental Status: Normal Affect, Appropriate, Alert and oriented to time, place, person, mood and affect Vital Signs Temp Pulse Resp BP Pulse Ox 98.0 F 66 17 004/69 100 02/12/18 05:08 02/12/18 07:00 02/12/18 05:08 02/12/18 05:08 02/12/18 05:08 Oxygen Flow Rate (L/min) 2 Oxygen Delivery Method Room Air Weight: 159 lb 2.78 oz Body Mass Index (BMI) 20.5 Finger Stick Blood Glucose 321 Intake and Output for Last 24 Hours 02/10/18 02/11/18 02/12/18 23:59 23:59 23:59 Intake Total 3273.5 / 3273.5 3306 / 3306 1555 / 1555 Output Total 1100 / 1100 2125 / 2125 3150 / 3150 Balance 2173.5 / 2173.5 1181 / 1181 -1595 / -1595 Microbiology Past 72 Hours 02/11/18 06:25 Urine Culture - Preliminary Urine, Clean Catch Culture exhibits no growth. Laboratory Tests Past 24 Hrs 02/11/18 02/11/18 02/12/18 06:55 06:55 04:58 WBC 5.8 RBC 3.79 L Hgb 12.5 L Hct 35.3 L MCV 93.1 MCH 33.0 H MCHC 35.4 RDW 12.5 RDW Differential 41.5 Plt Count 191 MPV 9.6 Sodium Potassium Chloride Carbon Dioxide Anion Gap BUN Creatinine Estim Creat Clear Calc Est GFR (MDRD) Af Amer Est GFR (MDRD) Non-Af BUN/Creatinine Ratio Glucose Calcium Phosphorus Magnesium Total Bilirubin AST ALT Alkaline Phosphatase Total Protein Albumin Globulin Albumin/Globulin Ratio Triglycerides Cholesterol LDL Cholesterol VLDL Cholesterol HDL Cholesterol Vitamin D 25-Hydroxy 43.0 PTH Intact 59.1 02/12/18 04:58 WBC RBC Hgb Hct MCV MCH MCHC RDW RDW Differential Plt Count MPV Sodium 141 Potassium 3.3 L Chloride 105 Carbon Dioxide 26.0 Anion Gap 10 BUN 7 Creatinine 0.71 Estim Creat Clear Calc 139.82 Est GFR (MDRD) Af Amer 156 Est GFR (MDRD) Non-Af 129 BUN/Creatinine Ratio 9.8 L Glucose 40 L* Calcium 8.3 L Phosphorus 3.3 Magnesium 1.9 Total Bilirubin 0.70 AST 130 H ALT 77 H Alkaline Phosphatase 81 Total Protein 5.7 L Albumin 3.1 L Globulin 2.6 Albumin/Globulin Ratio 1.2 Triglycerides 144 Cholesterol 170 LDL Cholesterol 88 VLDL Cholesterol 29 HDL Cholesterol 53 Vitamin D 25-Hydroxy PTH Intact POC Glucose 02/12/18 02/11/18 02/11/18 06:35 21:01 17:11 POC Glucose 113 H 100 119 H 02/11/18 11:48 POC Glucose 213 H Medical Necessity - Tobacco Use Smoking Status: Current every day smoker Tobacco Use: Cigarettes Assessment/Plan This is a 42 years old male patient admitted because of nausea and vomiting and he was found to have acute DKA, acute kidney injury, electrolyte abnormalities and mild acute non-ST elevation [place]. #1 acute DKA: Patient was on IV insulin drip. Anion gap closed, today's serum bicarb is 26 and anion gap is 10. His blood sugar has been in the range of 100-200, had one episode of hypoglycemia this morning with blood sugar 40s. He is on Levemir insulin twice daily as well as pre-meal NovoLog 3 times daily and sliding scale. His vital signs are stable. Hemoglobin A1c was 8.9. Plan to keep him on ADA diet, continue current insulin regimen. #2 acute kidney injury: Secondary to above. He has been on IV fluids, serum creatinine came back to normal. #3 hyponatremia: This is pseudohyponatremia secondary to hyperglycemia. Serum sodium is back to normal after correction of his DKA. Today's sodium is 141, normal. #4 hypomagnesemia/hypokalemia and hypophosphatemia: Both serum magnesium and phosphate replaced and corrected. Potassium is 3.3 today, still low. To give him oral K Dur, repeat serum potassium tomorrow. #5 mild acute non-ST elevation [place]: Secondary to acute illness and DKA. Troponin was borderline elevated and flat. Patient denies any chest pain. EKG revealed no acute ischemic changes. He underwent nuclear stress test today that was negative for ischemia with ejection fraction of 37% and global hypokinesis. He is on aspirin and lisinopril. Plan for 2D echocardiogram. 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 Back in 2015, his ejection fraction was 10%. He had an echocardiogram on April, that showed ejection fraction 60%. Today, stress test revealed ejection fraction of 37%. No evidence of acute CHF. He is on aspirin and lisinopril. Plan for 2D echocardiogram. #7 type 1 diabetes mellitus: He is back on Levemir twice daily and NovoLog insulin pre-meals. Plan as above. #8 seizure disorder: Continue Keppra. #9 alcohol abuse: Patient stated that he still drinks but very rarely. He is aware that his most likely etiology of his heart problem is the alcohol drinking. He was counseled. #10 DVT prophylaxis: Subcu Lovenox. This note was generated with [employer] dictation software. It may contain incorrect words, spelling, and punctuation that were not noted in checking the note before signing. Code Visit Inpatient E&M: 50246 Subs Hosp L2
[2018-02-12 11:51] LABS: Bedside Glucose 42 mg/dL (70-110)
--- NOTE | 2018-02-12 11:51 | PN_ITS ---
Subjective: Chief complaint: Follow-up after admission for DKA, acute kidney injury, non-ST elevation [place], electrolyte abnormalities and leukocytosis. Patient seen and examined. No acute events overnight. Today, he denies any symptoms. No chest pain or shortness of breath. Denied abdominal pain, nausea or vomiting. His vital signs are stable. - Physical Exam General: Alert, Oriented x3, Cooperative, No apparent distress HEENT: Atraumatic, PERRLA, EOMI Oral: Moist Mucosa, No Gingival or Mucosal Lesions/ Ulcerations Neck: Supple, No JVD, Negative Carotid Bruits, Thyroid Normal Size and Texture Lungs: Clear to auscultation, No rhonchi, No wheeze, No rales, Diminished Cardiovascular: Regular rate, Regular Rhythm, Normal S1, Normal S2, PMI Normal Abdomen: Bowel Sounds Present, Soft, Non Tender, Non-Distended, No Hepato- splenomegaly Extremities: No clubbing, No cyanosis, No edema Skin: No rashes, No breakdown Lymphatic: No Cervical, Supraclavicular, or Inguinal Adenopathy Neurological: Cranial nerves II-XII grossly intact, Neuro grossly intact Psych/Mental Status: Normal Affect, Appropriate, Alert and oriented to time, place, person, mood and affect Vital Signs Temp Pulse Resp BP Pulse Ox 98.0 F 66 17 004/69 100 02/12/18 05:08 02/12/18 07:00 02/12/18 05:08 02/12/18 05:08 02/12/18 05:08 Oxygen Flow Rate (L/min) 2 Oxygen Delivery Method Room Air Weight: 159 lb 2.78 oz Body Mass Index (BMI) 20.5 Finger Stick Blood Glucose 321 Intake and Output for Last 24 Hours 02/10/18 02/11/18 02/12/18 23:59 23:59 23:59 Intake Total 3273.5 / 3273.5 3306 / 3306 1555 / 1555 Output Total 1100 / 1100 2125 / 2125 3150 / 3150 Balance 2173.5 / 2173.5 1181 / 1181 -1595 / -1595 Microbiology Past 72 Hours 02/11/18 06:25 Urine Culture - Preliminary Urine, Clean Catch Culture exhibits no growth. Laboratory Tests Past 24 Hrs 02/11/18 02/11/18 02/12/18 06:55 06:55 04:58 WBC 5.8 RBC 3.79 L Hgb 12.5 L Hct 35.3 L MCV 93.1 MCH 33.0 H MCHC 35.4 RDW 12.5 RDW Differential 41.5 Plt Count 191 MPV 9.6 Sodium Potassium Chloride Carbon Dioxide Anion Gap BUN Creatinine Estim Creat Clear Calc Est GFR (MDRD) Af Amer Est GFR (MDRD) Non-Af BUN/Creatinine Ratio Glucose Calcium Phosphorus Magnesium Total Bilirubin AST ALT Alkaline Phosphatase Total Protein Albumin Globulin Albumin/Globulin Ratio Triglycerides Cholesterol LDL Cholesterol VLDL Cholesterol HDL Cholesterol Vitamin D 25-Hydroxy 43.0 PTH Intact 59.1 02/12/18 04:58 WBC RBC Hgb Hct MCV MCH MCHC RDW RDW Differential Plt Count MPV Sodium 141 Potassium 3.3 L Chloride 105 Carbon Dioxide 26.0 Anion Gap 10 BUN 7 Creatinine 0.71 Estim Creat Clear Calc 139.82 Est GFR (MDRD) Af Amer 156 Est GFR (MDRD) Non-Af 129 BUN/Creatinine Ratio 9.8 L Glucose 40 L* Calcium 8.3 L Phosphorus 3.3 Magnesium 1.9 Total Bilirubin 0.70 AST 130 H ALT 77 H Alkaline Phosphatase 81 Total Protein 5.7 L Albumin 3.1 L Globulin 2.6 Albumin/Globulin Ratio 1.2 Triglycerides 144 Cholesterol 170 LDL Cholesterol 88 VLDL Cholesterol 29 HDL Cholesterol 53 Vitamin D 25-Hydroxy PTH Intact POC Glucose 02/12/18 02/11/18 02/11/18 06:35 21:01 17:11 POC Glucose 113 H 100 119 H 02/11/18 11:48 POC Glucose 213 H Medical Necessity - Tobacco Use Smoking Status: Current every day smoker Tobacco Use: Cigarettes Assessment/Plan This is a 42 years old male patient admitted because of nausea and vomiting and he was found to have acute DKA, acute kidney injury, electrolyte abnormalities and mild acute non-ST elevation [place]. #1 acute DKA: Patient was on IV insulin drip. Anion gap closed, today's serum bicarb is 26 and anion gap is 10. His blood sugar has been in the range of 100- 200, had one episode of hypoglycemia this morning with blood sugar 40s. He is on Levemir insulin twice daily as well as pre-meal NovoLog 3 times daily and sliding scale. His vital signs are stable. Hemoglobin A1c was 8.9. Plan to keep him on ADA diet, continue current insulin regimen. #2 acute kidney injury: Secondary to above. He has been on IV fluids, serum creatinine came back to normal. #3 hyponatremia: This is pseudohyponatremia secondary to hyperglycemia. Serum sodium is back to normal after correction of his DKA. Today's sodium is 141, normal. #4 hypomagnesemia/hypokalemia and hypophosphatemia: Both serum magnesium and phosphate replaced and corrected. Potassium is 3.3 today, still low. To give him oral K Dur, repeat serum potassium tomorrow. #5 mild acute non-ST elevation [place]: Secondary to acute illness and DKA. Troponin was borderline elevated and flat. Patient denies any chest pain. EKG revealed no acute ischemic changes. He underwent nuclear stress test today that was negative for ischemia with ejection fraction of 37% and global hypokinesis. He is on aspirin and lisinopril. Plan for 2D echocardiogram. 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 Back in 2015, his ejection fraction was 10%. He had an echocardiogram on April, that showed ejection fraction 60%. Today, stress test revealed ejection fraction of 37%. No evidence of acute CHF. He is on aspirin and lisinopril. Plan for 2D echocardiogram. #7 type 1 diabetes mellitus: He is back on Levemir twice daily and NovoLog insulin pre-meals. Plan as above. #8 seizure disorder: Continue Keppra. #9 alcohol abuse: Patient stated that he still drinks but very rarely. He is aware that his most likely etiology of his heart problem is the alcohol drinking. He was counseled. #10 DVT prophylaxis: Subcu Lovenox. This note was generated with [employer] dictation software. It may contain incorrect words, spelling, and punctuation that were not noted in checking the note before signing. Code Visit Inpatient E&M: 44459 Subs Hosp L2
[2018-02-12 12:44] LABS: Pathologist Review Reviewed
--- NOTE | 2018-02-12 14:14 | CASEMGMT ---
DC Plan: home on discharge with family support. Gallito DAVISN RN ACM
[2018-02-12] MEDS: Na Biphos/Potassium Phosphate PACKET 1 PACKET PO ×2 (14:32→22:47)
[2018-02-12 16:30] LABS: Bedside Glucose 89 mg/dL (70-110)
[2018-02-12 16:35] LABS: Bedside Glucose 373 mg/dL (70-110)
[2018-02-12] MEDS: 0.9% NaCl Peripheral Flush Adult/Peds IV (22:49)
[2018-02-12 23:00] LABS: Bedside Glucose 292 mg/dL (70-110)
[2018-02-13] MEDS: Mirtazapine 15 MG Tablet PO (00:38)
[2018-02-13 03:00] VITALS: BP 118/74; PULSE 57; PULSE 86; RESP 13; TEMP 36.8; O2SAT 100
[2018-02-13 04:27] LABS: Anion Gap 6 (5-15); BUN 10 mg/dL (7-18); BUN/Creat Ratio 13.3 RATIO (10-20); Calcium,Total 8.6 mg/dL (8.5-10.1); Chloride 103 mmol/L (98-107); Creatinine, Serum 0.75 mg/dL (0.70-1.30); EST Glomerular Filtration Rate 121 mL/min (>60); Est Glom Filt Rate - Afr Amer 146 mL/min (>60); Estimated Creatinine Clearance 132.37 ml/min; Glucose 150 mg/dL (74-106); Potassium 3.7 mmol/L (3.5-5.1); Sodium Level 140 mmol/L (136-145)
[2018-02-13] MEDS: Na Biphos/Potassium Phosphate PACKET 1 PACKET PO (06:35)
[2018-02-13 06:46] LABS: Bedside Glucose 62 mg/dL (70-110)
[2018-02-13 07:00] VITALS: PULSE 60
[2018-02-13 08:26] VITALS: BP 129/86; PULSE 64; RESP 10; TEMP 36.8; O2SAT 100
[2018-02-13] MEDS: Aspirin E.C. 81 MG Tablet PO (08:33)
[2018-02-13] MEDS: levETIRAcetam 500 MG Tablet PO (08:34)
--- NOTE | 2018-02-13 08:57 | PCM.DC ---
You will use the following diet at home:: Calorie/Carbohydrate Controlled (specify 1200, 1400, etc) - 1800 gill, Cardiac Your food should be the consistency of: Regular Discharge Activity: Return to Normal Activity Weight Bearing Status: Weight bearing as tolerated Call your doctor if you observe: Fever of 101 or Higher, Shortness of breath, Dizziness, Fainting spells, Chest pain, Increased palpitations (irregular heartbeat), Uncontrolled pain Instructions: Diabetes and Alcohol Consumption, Using a Blood Sugar Log, How to Check Your Blood Sugar Allergies/Adverse Reactions: Allergies zinc Allergy (Intermediate, Verified 02/08/18 11:14) Hives Medications to take at Discharge Aspirin [Low Dose Aspirin EC] 81 mg PO DAILY 11/14/16 lisinopril 2.5 mg tablet 2.5 mg PO QDAY #90 tab 11/02/17 blood sugar diagnostic strips See Dose Instructions .ROUTE .MEDSUPPLY #120 ea 01/15/18 escitalopram 20 mg tablet 20 mg PO QDAY 01/18/18 levetiracetam 500 mg tablet 500 mg PO Q12H 01/18/18 mirtazapine 15 mg tablet 15 mg PO QHS 01/18/18 Insulin Glargine,Hum.rec.anlog [Lantus] 20 units SQ QHS 02/13/18 Insulin Lispro [Humalog KwikPen] See Protocol SQ ACHS 02/13/18 Primary Care Physician: Moni Cintron MD [Primary Care Provider] - Please follow up with your Primary Care Physician in: 2 weeks. Please Follow Up With: Dory Phillips NP-C When: 1 week.
[2018-02-13] MEDS: Escitalopram Oxalate 20 MG Tablet PO (09:28)
[2018-02-13] MEDS: Lisinopril 2.5 MG Tablet PO (09:28)
[2018-02-13 10:10] VITALS: BP 129/86; PULSE 64; RESP 10; TEMP 36.8; O2SAT 100
--- NOTE | 2018-02-13 15:09 | PCM.DC.SUM ---
Discharge Date and Diagnosis Date of Admission: 02/10/18 Date of Discharge: 02/13/18 - Primary Discharge Diagnosis #1 diabetic ketoacidosis. #2 acute kidney injury. #3 hyponatremia. #4 hypomagnesemia/hypokalemia/hypophosphatemia. #5 mild acute non-ST elevation [place]. #6 nonischemic cardiomyopathy. - Secondary Discharge Diagnosis Chronic Problems (Last Updated 02/08/18 @ 11:27 by Jenifer Germain) History of alcohol abuse (Chronic) CAD (coronary artery disease) (Chronic) Hospital Course and Treatment Imaging Results: Clinical Impression(s) from Imaging Studies Chest X-Ray 02/10/18 10:15 IMPRESSION: Mild pulmonary vascular congestion. No evidence for focal airspace consolidation. Electronically Signed: Richard Freddie, at 10:44 EDT Tel , Service support , Operations: None Procedures: 2-D Echocardiogram, EKG, Stress test Summary of Care Provided: Patient seen and examined on the day of discharge and appeared to be stable to be discharged home. He has no complaints. His vital signs are stable. - Physical Exam General: Alert, Oriented x3, Cooperative, No apparent distress. HEENT: Atraumatic, PERRLA, EOMI. Neck: Supple, No JVD, Negative Carotid Bruits, Trachea Midline, Thyroid Normal. Lungs: Diminished breath sounds bilateral, otherwise clear, No rhonchi, No wheeze, No rales. Cardiovascular: Regular rate, Regular Rhythm, Normal S1, Normal S2, PMI Normal. Abdomen: Bowel Sounds Present, Soft, Non Tender, Non-Distended, No Hepato-splenomegaly. Extremities: No clubbing, No cyanosis, No edema Skin: No rashes, No breakdown Neurological: Neuro grossly intact Vital Signs are stable. Hospital course: This is a 42 years old male patient admitted because of nausea and vomiting and he was found to have acute DKA, acute kidney injury, electrolyte abnormalities and mild acute non-ST elevation [place]. #1 acute DKA: Treated in the ICU with DKA protocol with IV insulin drip. Anion gap closed and serum bicarb is down to 26 and anion gap is 10. This is attributed to noncompliance. He was resumed back on his home doses of Lantus and pre-meal Humalog. His blood sugar has been fluctuating with 1 or 2 episodes of hypoglycemia. Hemoglobin A1c was 8.9. Patient discharged home in a stable medical condition, discharged on Lantus 20 units nightly as before and recommended to use Humalog sliding scale, plan to follow-up with endocrinology in 1 week. #2 acute kidney injury: Secondary to above. Treated with IV fluids and his kidney function returned back to normal.. #3 hyponatremia: This is pseudohyponatremia secondary to hyperglycemia. Serum sodium is back to normal after correction of his DKA. Discharge sodium is 140, normal. #4 hypomagnesemia/hypokalemia and hypophosphatemia: Serum magnesium, potassium and phosphorus replaced and corrected per protocol. #5 mild acute non-ST elevation [place]: Secondary to acute illness and DKA. Troponin was borderline elevated and flat. Patient denies any chest pain throughout the admission. EKG revealed no acute ischemic changes. He underwent nuclear stress test today that was negative for ischemia with ejection fraction of 37% and global hypokinesis. Continued on aspirin and lisinopril. 2D echocardiogram showed normal LV size, ejection fraction of 53%, normal left ventricular systolic function. 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 Back in 2015, his ejection fraction was 10%. He had an echocardiogram on April, that showed ejection fraction 60%. Today, stress test revealed ejection fraction of 37%. 2D echocardiogram done on this admission as above and showed ejection fraction of 53%. There was no evidence of acute decompensated CHF. #7 type 1 diabetes mellitus: Discharged back on Levemir twice daily and NovoLog insulin pre-meals. Plan as above. #8 seizure disorder: Continued on Keppra. Patient discharged home in a stable medical condition, continued on his home doses of Lantus and pre-meal NovoLog without any changes, recommended to check blood sugar at least 3-4 times daily, follow-up with endocrinology with [facility] phillips in 1 week, follow-up with PCP in 2 weeks. This note was generated with [employer] software. It may contain incorrect words, spelling, and punctuation that were not noted in checking the note before signing. Discharge Activity: Return to Normal Activity Weight Bearing Status: Weight bearing as tolerated Call your doctor if you observe: Fever of 101 or Higher, Shortness of breath, Dizziness, Fainting spells, Chest pain, Increased palpitations (irregular heartbeat), Uncontrolled pain Home Medications: Medications to take at Discharge Aspirin [Low Dose Aspirin EC] 81 mg PO DAILY 11/14/16 lisinopril 2.5 mg tablet 2.5 mg PO QDAY #90 tab 11/02/17 blood sugar diagnostic strips See Dose Instructions .ROUTE .MEDSUPPLY #120 ea 01/15/18 escitalopram 20 mg tablet 20 mg PO QDAY 01/18/18 levetiracetam 500 mg tablet 500 mg PO Q12H 01/18/18 mirtazapine 15 mg tablet 15 mg PO QHS 01/18/18 Insulin Glargine,Hum.rec.anlog [Lantus] 20 units SQ QHS 02/13/18 Insulin Lispro [Humalog KwikPen] See Protocol SQ ACHS 02/13/18 Primary Care Physician: Moni Cintron MD [Primary Care Provider] - Please follow up with your Primary Care Physician in: 2 weeks. Please Follow Up With: Dory Phillips NP-C When: 1 week. Please Follow Up With: Moni Cintron MD Patient Instructions: Diabetes and Alcohol Consumption, Using a Blood Sugar Log, How to Check Your Blood Sugar Disposition: Home Minutes spent on discharge:: 33 Patient Condition:: Stable Medical Necessity - Tobacco Use Smoking Status: Current every day smoker Tobacco Use: Cigarettes Meaningful Use Info Meaningful Use Diagnoses (Choose all that apply): None applicable Code Visit Inpatient E&M: 67962 Disch Hosp
--- NOTE | 2018-02-13 15:17 | DS.PCM_ITS ---
Discharge Date and Diagnosis Date of Admission: 02/10/18 Date of Discharge: 02/13/18 - Primary Discharge Diagnosis #1 diabetic ketoacidosis. #2 acute kidney injury. #3 hyponatremia. #4 hypomagnesemia/hypokalemia/hypophosphatemia. #5 mild acute non-ST elevation TX. #6 nonischemic cardiomyopathy. - Secondary Discharge Diagnosis Chronic Problems (Last Updated 02/08/18 @ 11:27 by Jenifer Germain) History of alcohol abuse (Chronic) CAD (coronary artery disease) (Chronic) Hospital Course and Treatment Imaging Results: Clinical Impression(s) from Imaging Studies Chest X-Ray 02/10/18 10:15 IMPRESSION: Mild pulmonary vascular congestion. No evidence for focal airspace consolidation. Electronically Signed: Richard Freddie, at 10:44 EDT Tel , Service support , Operations: None Procedures: 2-D Echocardiogram, EKG, Stress test Summary of Care Provided: Patient seen and examined on the day of discharge and appeared to be stable to be discharged home. He has no complaints. His vital signs are stable. - Physical Exam General: Alert, Oriented x3, Cooperative, No apparent distress. HEENT: Atraumatic, PERRLA, EOMI. Neck: Supple, No JVD, Negative Carotid Bruits, Trachea Midline, Thyroid Normal. Lungs: Diminished breath sounds bilateral, otherwise clear, No rhonchi, No wheeze, No rales. Cardiovascular: Regular rate, Regular Rhythm, Normal S1, Normal S2, PMI Normal. Abdomen: Bowel Sounds Present, Soft, Non Tender, Non-Distended, No Hepato- splenomegaly. Extremities: No clubbing, No cyanosis, No edema Skin: No rashes, No breakdown Neurological: Neuro grossly intact Vital Signs are stable. Hospital course: This is a 42 years old male patient admitted because of nausea and vomiting and he was found to have acute DKA, acute kidney injury, electrolyte abnormalities and mild acute non-ST elevation TX. #1 acute DKA: Treated in the ICU with DKA protocol with IV insulin drip. Anion gap closed and serum bicarb is down to 26 and anion gap is 10. This is attributed to noncompliance. He was resumed back on his home doses of Lantus and pre-meal Humalog. His blood sugar has been fluctuating with 1 or 2 episodes of hypoglycemia. Hemoglobin A1c was 8.9. Patient discharged home in a stable medical condition, discharged on Lantus 20 units nightly as before and recommended to use Humalog sliding scale, plan to follow-up with endocrinology in 1 week. #2 acute kidney injury: Secondary to above. Treated with IV fluids and his kidney function returned back to normal.. #3 hyponatremia: This is pseudohyponatremia secondary to hyperglycemia. Serum sodium is back to normal after correction of his DKA. Discharge sodium is 140, normal. #4 hypomagnesemia/hypokalemia and hypophosphatemia: Serum magnesium, potassium and phosphorus replaced and corrected per protocol. #5 mild acute non-ST elevation TX: Secondary to acute illness and DKA. Troponin was borderline elevated and flat. Patient denies any chest pain throughout the admission. EKG revealed no acute ischemic changes. He underwent nuclear stress test today that was negative for ischemia with ejection fraction of 37% and global hypokinesis. Continued on aspirin and lisinopril. 2D echocardiogram showed normal LV size, ejection fraction of 53%, normal left ventricular systolic function. 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 Back in 2015, his ejection fraction was 10%. He had an echocardiogram on April, that showed ejection fraction 60%. Today, stress test revealed ejection fraction of 37%. 2D echocardiogram done on this admission as above and showed ejection fraction of 53%. There was no evidence of acute decompensated CHF. #7 type 1 diabetes mellitus: Discharged back on Levemir twice daily and NovoLog insulin pre-meals. Plan as above. #8 seizure disorder: Continued on Keppra. Patient discharged home in a stable medical condition, continued on his home doses of Lantus and pre-meal NovoLog without any changes, recommended to check blood sugar at least 3-4 times daily, follow-up with endocrinology with [facility] in 1 week, follow-up with PCP in 2 weeks. This note was generated with [employer] software. It may contain incorrect words, spelling, and punctuation that were not noted in checking the note before signing. Discharge Activity: Return to Normal Activity Weight Bearing Status: Weight bearing as tolerated Call your doctor if you observe: Fever of 101 or Higher, Shortness of breath, Dizziness, Fainting spells, Chest pain, Increased palpitations (irregular heartbeat), Uncontrolled pain Home Medications: Medications to take at Discharge Aspirin [Low Dose Aspirin EC] 81 mg PO DAILY 11/14/16 lisinopril 2.5 mg tablet 2.5 mg PO QDAY #90 tab 11/02/17 blood sugar diagnostic strips See Dose Instructions .ROUTE .MEDSUPPLY #120 ea escitalopram 20 mg tablet 20 mg PO QDAY 01/18/18 levetiracetam 500 mg tablet 500 mg PO Q12H 01/18/18 mirtazapine 15 mg tablet 15 mg PO QHS 01/18/18 Insulin Glargine,Hum.rec.anlog [Lantus] 20 units SQ QHS 02/13/18 Insulin Lispro [Humalog KwikPen] See Protocol SQ ACHS 02/13/18 Primary Care Physician: Moni Cintron MD [Primary Care Provider] - Please follow up with your Primary Care Physician in: 2 weeks. Please Follow Up With: Dory Phillips NP-C When: 1 week. Please Follow Up With: Moni Cintron MD Patient Instructions: Diabetes and Alcohol Consumption, Using a Blood Sugar Log , How to Check Your Blood Sugar Disposition: Home Minutes spent on discharge:: 33 Patient Condition:: Stable Medical Necessity - Tobacco Use Smoking Status: Current every day smoker Tobacco Use: Cigarettes Meaningful Use Info Meaningful Use Diagnoses (Choose all that apply): None applicable Code Visit Inpatient E&M: 28263 Disch Hosp
[2018-02-14 14:33] LABS: Vitamin D 1,25-Dihydroxy 89.6 pg/mL (19.9-79.3)
== END 2018-02-13 10:25 | disposition home or self-care (01) | DRG 294 ==
LOC: ED 06:37 → ICU 08:51
PROVIDERS: Admitting Provider Internal Medicine; Emergency Provider Emergency Medicine; Family Provider Internal Medicine; PCP Internal Medicine; Visit Provider Hospitalist
DX: E10.10 Type 1 diabetes mellitus with ketoacidosis without coma (principal); I21.4 Non-ST elevation (NSTEMI) myocardial infarction; N17.9 Acute kidney failure, unspecified; E83.42 Hypomagnesemia; E83.39 Other disorders of phosphorus metabolism; I42.6 Alcoholic cardiomyopathy; E87.1 Hypo-osmolality and hyponatremia; E86.0 Dehydration; F10.10 Alcohol abuse, uncomplicated; F17.210 Nicotine dependence, cigarettes, uncomplicated; E87.6 Hypokalemia; I25.10 Atherosclerotic heart disease of native coronary artery without angina pectoris; G40.909 Epilepsy, unspecified, not intractable, without status epilepticus
CPT/HCPCS: 36600; 71045; 78452; 80048; 80053; 80061; 80076; 80307; 80320; 81001; 82009; 82306; 82652; 82803; 82962; 83036; 83735; 83970; 84100; 84484; 85025; 85027; 87086; 87641; 93005; 93017; 93306; 99284; A9500; J7030; J7040; J7050; A4216; G0480; J7799

== ENCOUNTER 2018-10-01 22:45 | Inpatient (IN) | payer MEDICAID, SELFPAY ==
[2018-10-01 22:46] VITALS: BP 144/80; PULSE 113; RESP 24; TEMP 36.7; O2SAT 100; BMI 20.9
[2018-10-01 22:51] LABS: Bedside Glucose > 500 mg/dL (70-110)
[2018-10-01 23:12] VITALS: O2SAT 100
--- NOTE | 2018-10-01 23:21 | EKG12_ITS ---
Test Reason : Blood Pressure : / mmHG Vent. Rate : 159 BPM Atrial Rate : 117 BPM P-R Int : 142 ms QRS Dur : 108 ms QT Int : 342 ms P-R-T Axes : 070 074 063 degrees QTc Int : 556 ms Sinus tachycardia with frequent Premature ventricular complexes Junctional ST depression, probably normal Borderline ECG Peaked T waves-hyperkalemia Confirmed by GOOD GEORGE, RADHA ([id number]), tape editor FERMIN ARAYA ([id number]) on 10/08/2018 3:08:35 PM Referred By: KYLE Confirmed By:RADHA FUNK MD
[2018-10-01] MEDS: 0.9% Normal Saline 1,000 ML 999 ML IV (23:57)
[2018-10-01] MEDS: Ondansetron 4 MG/2 ML Vial IV (23:59)
[2018-10-02] VITALS (30 sets, daily range): BP systolic 100–127; BP diastolic 45–66; PULSE 92–151; RESP 12–30; TEMP 36.5–37.7; O2SAT 99–100; BMI 20.9
--- NOTE | 2018-10-02 00:03 | ED.RN ---
PT C/O RIGHT SIDE CHEST BURNING. CALLED FOR REPEAT EKG
[2018-10-02 00:05] LABS: Bacteria 0 SEEN /hpf (None Seen); Mucous, Urine 0 SEEN /hpf (<or=2+); Red Blood Cells-Urine 0 SEEN /hpf (0-5); Squamous Epithelial Cells - UA 0 SEEN /hpf (0-5); White Blood Cells 0 SEEN /hpf (0-5)
[2018-10-02 00:06] LABS: Blood Gas Specimen Type VEN; O2 Delivery Device Nasal Can; VBG BASE EXCESS -24 mmol/L (-1.0-3.5); VBG Bicarbonate 6 mmol/L (22-26); VBG Oxygen Content 7 mmol/L (23-33); VBG PO2 32 mmHg (25-40); VBG SO2 41 % (50-70); VBG pCO2 21.5 mmHg (41-51); VBG pH 7.06 (7.32-7.42)
--- NOTE | 2018-10-02 00:13 | NURSING ---
EKG DONE AND SHOWED FREQUENT PVC'S. HE IS STILL TACHY. INSULIN STARTED. DR. KYLE BREWER.
[2018-10-02 00:19] LABS: Color, Urine Straw (Yellow); Glucose, Dipstick 1000 mg/dl (Normal); Leukocyte Esterase-Dipstick Negative /ul (Negative); Nitrite-Dipstick Negative (Negative); Occult Blood-Urine 10 /ul (Negative); Protein-Dipstick 30 mg/dl (Negative); Urine Bilirubin Dipstick Negative (Negative); Urine Clarity Clear (Clear); Urine Urobilinogen Normal (Normal)
--- NOTE | 2018-10-02 00:40 | NURSING ---
APICAL PULSE IS 117 EVEN THOUGHT SAP TRAINER IS READING 180'S AND DOUBLE COUNTING AT TIMES. DR. WRIGHT IS AWARE AND PATIENT IS NOT HAVING ANY SYMPTOMS OR CHEST PAIN.
[2018-10-02 00:42] LABS: Hematocrit 45.9 % (40-54); Hemoglobin 15.4 g/dl (13.0-16.5); Mean Corpuscular Hgb 33.4 pg (27.0-32.0); Mean Corpuscular Volume 99.6 fL (80-94); Red Blood Count 4.61 M/mm3 (4.6-6.2)
[2018-10-02 00:43] LABS: Differential Indicated SCAN CRITERIA MET; Mean Corp Hgb Conc 33.6 g/gl (32-36); Mean Platelet Vol. 11.3 fl (6.2-12.0); POSITIVE COUNT YES; POSITIVE DIFFERENTIAL YES; POSITIVE MORPHOLOGY YES; Platelet Count 367 K/mm3 (150-450); RBC Distribution Width CV 12.6 % (11.6-14.6); RBC Distribution Width SD 45.6 fl (35.1-43.9)
[2018-10-02 00:44] LABS: Absolute Lymphocyte Count 2.32 X10^3/ul (0.83-4.51); Absolute Neutrophil Count 28.1 X10^3/uL (2.0-7.7); Basophil# 0.11 X10^3/uL; Basophil% 0.3 % (0-1); Eosinophil# 0.04 X10^3/uL; Eosinophils% 0.1 % (0-5); Lymphocyte # 2.32 X10^3/ul (4.0); Lymphocyte % 6.8 % (19-41); Monocyte# 2.96 X10^3/uL; Monocyte% 8.6 % (0-10); Neutrophil # 28.12 X10^3/uL (2.7-7.7); Neutrophil % 81.9 % (47-70)
[2018-10-02 00:45] LABS: Differential Comment SEE COMMENTS; Platelet Estimate ADEQUATE (ADEQ)
[2018-10-02 00:46] LABS: Anisocytosis RARE; Macrocytosis RARE; Toxic Granulation RARE
[2018-10-02 00:48] LABS: White Blood Count 34.3 K/mm3 (4.4-11.0)
[2018-10-02 00:50] LABS: Transitional Epithelial - Ur 0-5 SEEN /hpf (0-5)
[2018-10-02 00:51] LABS: Ketone-Dipstick 150 mg/dl (Negative)
--- NOTE | 2018-10-02 01:15 | ED.RN ---
AT THIS TIME LAB CALLED CRITICAL LABS ON THIS PATIENT, POTASSIUM 6.2, CO2 7 AND GLUCOSE 800, DR WRIGHT NOTIFIED, NFO GIVEN AT THIS TIME
--- NOTE | 2018-10-02 01:15 | NURSING ---
BEDSIDE BLOOD GLUCOSE TEST DONE AND READ HIGH. SPECIMEN SENT TO THE LAB FOR BMP.
[2018-10-02 01:16] LABS: Anion Gap 34 (5-15); BUN 33 mg/dL (7-18); BUN/Creat Ratio 17.9 RATIO (10-20); Calcium,Total 7.8 mg/dL (8.5-10.1); Chloride 83 mmol/L (98-107); Creatinine, Serum 1.84 mg/dL (0.70-1.30); EST Glomerular Filtration Rate 43 mL/min (>60); Est Glom Filt Rate - Afr Amer 52 mL/min (>60); Estimated Creatinine Clearance 51.71 ml/min; Glucose 800 mg/dL (74-106); Magnesium 2.2 mg/dL (1.6-2.6); Phosphorus 8.8 mg/dL (2.5-4.9); Potassium 6.2 mmol/L (3.5-5.1); Sodium Level 124 mmol/L (136-145)
--- NOTE | 2018-10-02 01:31 | PCM.HP.STD ---
Problem List (1) Nicotine abuse Status: Chronic (2) Thrombocytopenia Status: Chronic (3) Diabetes type I Status: Chronic (4) Cardiomyopathy Status: Suspected Qualifiers: (5) History of alcohol abuse Status: Chronic (6) CAD (coronary artery disease) Status: Chronic Qualifiers: (7) Dental caries Status: Chronic (8) DKA (diabetic ketoacidoses) Status: Acute Qualifiers: Diabetes mellitus type: type 1 Diabetes mellitus complication detail: without coma Qualified Code(s): E10.10 - Type 1 diabetes mellitus with ketoacidosis without coma History of Present Illness Date of Admission: 10/02/18 Chief Complaint: hyperglycemia, SOB, DKA The patient is a 43 year old male patient with a significant past medical history of diabetes present to the ER with acute shortness of breath and nausea. Onset began this afternoon at about noon. He states he was not drinking alcohol this time as he did 7 months ago when he last had DKA. Venous pH is 7.06 and anion gap is 34 with serum acetone positive. Glucose initially is 800mg /dL. The patient will be admitted to the ICU for management of DKA. Past Medical History Past Medical History (Chronic Problems): Chronic Problems (Last Updated 02/08/18 @ 11:27 by Jenifer Germain) Nicotine abuse (Chronic) Thrombocytopenia (Chronic) Diabetes type I (Chronic) History of alcohol abuse (Chronic) CAD (coronary artery disease) (Chronic) Dental caries (Chronic) Medical History: Medical History (Last Updated 02/08/18 @ 11:27 by Jenifer Germain) Cardiomyopathy (Suspected) I42.9 CAD (coronary artery disease) (Chronic) I25.10 Acute renal failure N17.9 Alcohol abuse F10.10 Anxiety F41.9 Depression F32.9 Diabetes type 1, controlled E10.9 dx : 08/2001 last exacerbation : dka : 05/13 hypoglycemic episode : never er visit : 05/13 Dilated cardiomyopathy I42.0 Elevated liver enzymes R74.8 H/O sepsis Z86.19 Hyponatremia E87.1 Lactic acidosis E87.2 Left atrial enlargement I51.7 Mycoplasma pneumonia J15.7 NSVT (nonsustained ventricular tachycardia) I47.2 Neuropathy G62.9 Prolonged QT interval R94.31 Seizure disorder G40.909 Steatosis of liver K76.0 Thrombocytopenia D69.6 Allergies zinc Allergy (Intermediate, Verified 04/27/18 09:36) Hives Home Medications: Ambulatory Orders Medication Instructions Recorded Aspirin [Low Dose Aspirin EC] 81 mg PO DAILY 11/14/16 lisinopril 2.5 mg tablet 2.5 mg PO QDAY #90 tab 11/02/17 blood sugar diagnostic strips See Dose Instructions .ROUTE 01/15/18 .MEDSUPPLY #120 ea levetiracetam 500 mg tablet 500 mg PO Q12H 01/18/18 mirtazapine 15 mg tablet 15 mg PO QHS 01/18/18 Insulin Lispro [Humalog KwikPen] See Protocol SQ ACHS 02/13/18 Basaglar KwikPen U-100 Insulin 100 20 unit SC QDAY #15 ml NS 04/02/18 unit/mL (3 mL) subcutaneous folic acid 800 mcg tablet 1 tab PO DAILY 30 Days #30 04/27/18 Humalog KwikPen (U- 100) Insulin See Rx Instructions SC .COMPLEX 06/18/18 100 unit/mL subcutaneous #45 ml NS Surgical History: Surgical History (Last Reviewed 04/27/18 @ 09:36 by Karla Rehman) Hx of tonsillectomy Z98.890, Z90.89 Surgical History: noncontributory Psychiatric History: No pertinent psych hx Smoking Status: Current every day smoker - *Family History Maternal Family History: Family History (Last Reviewed 04/27/18 @ 09:36 by Karla Rehman) Mother Arthritis Father Diabetes Grandfather Diabetes Grandmother Diabetes History Items: No pertinent history Review of Systems Constitutional: Denies: Chills, Fever, Weight Change HEENT: Denies: Head Aches, Sinus Congestion, Sinus Drainage Cardiovascular: Reports: Chest Pressure. Denies: Chest Pain, Palpitations Respiratory: Reports: Shortness of breath at rest. Denies: Cough, Sputum production Gastrointestinal: Reports: Nausea. Denies: Abdominal Pain, Vomiting Genitourinary: Denies: Dysuria Musculoskeletal: Denies: Joint Pain, Joint Tenderness Skin: Denies: Rash, Wounds Neurological: Denies: Numbness, Tingling, Focal weakness Psychiatric: Reports: Anxiety. Denies: Depression, Homicidal Ideations, Suicidal Ideations Hematologic/ Lymphatic: Denies: Easy Bruising, Easy Bleeding VTE Information - Inpt Only VTE Present on Admission: No VTE Mechan Device Prophylaxis: None VTE Pharm Prophylaxis ordered?: Yes - Physical Exam General: Alert, Oriented x3, Cooperative HEENT: Atraumatic, Normocephalic Neck: Supple Lungs: Clear to auscultation, Normal air movement, No rhonchi, No wheeze, No rales, Tachypneic Cardiovascular: Regular rate, Normal S1, Normal S2, No murmurs, Tachycardic Abdomen: Bowel Sounds Present, Soft, Non Tender Extremities: No edema Skin: No rashes, No breakdown Musculoskeletal: No Tenderness to Palpation of Joints or Extremities Neurological: Neuro grossly intact Psych/Mental Status: Normal Affect, Appropriate Vital Signs Temp Pulse Resp BP Pulse Ox 97.7 F L 111 H 29 H 112/63 100 10/02/18 00:54 10/02/18 00:54 10/02/18 00:54 10/02/18 00:54 10/02/18 00:54 Oxygen Flow Rate (L/min) 2 Oxygen Delivery Method Nasal Cannula Weight: 154 lb 1.65 oz Body Mass Index (BMI) 20.9 Finger Stick Blood Glucose 321 Laboratory Tests Past 24 Hrs 10/01/18 10/01/18 10/01/18 23:14 23:14 23:14 WBC 34.3 H* RBC 4.61 Hgb 15.4 Hct 45.9 MCV 99.6 H MCH 33.4 H MCHC 33.6 RDW 12.6 RDW Differential 45.6 H Plt Count 367 MPV 11.3 Immature Gran % (Auto) 2.300 H Neut % (Auto) 81.9 H Lymph % (Auto) 6.8 L [place] % (Auto) 8.6 Eos % (Auto) 0.1 Baso % (Auto) 0.3 Absolute Neuts (auto) 28.1 H Absolute Lymphs (auto) 2.32 Total Counted Not Reportable Differential Comment SEE COMMENTS Diff Path Review May foll Toxic Granulation RARE Platelet Estimate ADEQUATE Anisocytosis RARE Macrocytosis RARE Specimen Type VBG pH VBG pO2 VBG O2 Sat (Calc) VBG O2 Content VBG Base Excess POC Mix VBG pCO2 Pt Tmp O2 Delivery Device Liter Flow Blood Gas Notified Whom Sodium Cancelled Potassium Cancelled Chloride Cancelled Carbon Dioxide Cancelled Anion Gap Cancelled BUN Cancelled Creatinine Cancelled Estim Creat Clear Calc Cancelled Est GFR (MDRD) Af Amer Cancelled Est GFR (MDRD) Non-Af Cancelled BUN/Creatinine Ratio Cancelled Glucose Cancelled Calcium Cancelled Phosphorus Cancelled Magnesium Cancelled Urine Color Urine Clarity Urine pH Ur Specific [place] Urine Protein Urine Glucose (UA) Urine Ketones Urine Occult Blood Urine Nitrite Urine Bilirubin Urine Urobilinogen Ur Leukocyte Esterase Urine RBC Urine WBC Ur Squamous Epith Cells Ur Transition Epith Cell Urine Bacteria Urine Mucus Acetone Level Cancelled 10/01/18 10/01/18 10/02/18 23:56 23:57 00:25 WBC RBC Hgb Hct MCV MCH MCHC RDW RDW Differential Plt Count MPV Immature Gran % (Auto) Neut % (Auto) Lymph % (Auto) [place] % (Auto) Eos % (Auto) Baso % (Auto) Absolute Neuts (auto) Absolute Lymphs (auto) Total Counted Differential Comment Diff Path Review Toxic Granulation Platelet Estimate Anisocytosis Macrocytosis Specimen Type JAKY VBG pH 7.06 L* VBG pO2 32 VBG O2 Sat (Calc) 41 L VBG O2 Content 7 L VBG Base Excess -24 L POC Mix VBG pCO2 Pt Tmp 21.5 L O2 Delivery Device Nasal Can Liter Flow 2.0 Blood Gas Notified Whom ED MD Sodium 124 L Potassium 6.2 H* Chloride 83 L Carbon Dioxide 7.0 L* Anion Gap 34 H BUN 33 H Creatinine 1.84 H Estim Creat Clear Calc 51.71 Est GFR (MDRD) Af Amer 52 L Est GFR (MDRD) Non-Af 43 L BUN/Creatinine Ratio 17.9 Glucose 800 H* Calcium 7.8 L Phosphorus 8.8 H Magnesium 2.2 Urine Color Straw Urine Clarity Clear Urine pH 6.0 Ur Specific [place] 1.020 Urine Protein 30 H Urine Glucose (UA) 1000 H Urine Ketones 150 H Urine Occult Blood 10 H Urine Nitrite Negative Urine Bilirubin Negative Urine Urobilinogen Normal Ur Leukocyte Esterase Negative Urine RBC 0 SEEN Urine WBC 0 SEEN Ur Squamous Epith Cells 0 SEEN Ur Transition Epith Cell 0-5 SEEN Urine Bacteria 0 SEEN Urine Mucus 0 SEEN Acetone Level 10/02/18 10/02/18 00:25 01:10 WBC RBC Hgb Hct MCV MCH MCHC RDW RDW Differential Plt Count MPV Immature Gran % (Auto) Neut % (Auto) Lymph % (Auto) [place] % (Auto) Eos % (Auto) Baso % (Auto) Absolute Neuts (auto) Absolute Lymphs (auto) Total Counted Differential Comment Diff Path Review Toxic Granulation Platelet Estimate Anisocytosis Macrocytosis Specimen Type VBG pH VBG pO2 VBG O2 Sat (Calc) VBG O2 Content VBG Base Excess POC Mix VBG pCO2 Pt Tmp O2 Delivery Device Liter Flow Blood Gas Notified Whom Sodium Pending Potassium Pending Chloride Pending Carbon Dioxide Pending Anion Gap Pending BUN Pending Creatinine Pending Estim Creat Clear Calc Est GFR (MDRD) Af Amer Pending Est GFR (MDRD) Non-Af Pending BUN/Creatinine Ratio Pending Glucose Pending Calcium Pending Phosphorus Magnesium Urine Color Urine Clarity Urine pH Ur Specific [place] Urine Protein Urine Glucose (UA) Urine Ketones Urine Occult Blood Urine Nitrite Urine Bilirubin Urine Urobilinogen Ur Leukocyte Esterase Urine RBC Urine WBC Ur Squamous Epith Cells Ur Transition Epith Cell Urine Bacteria Urine Mucus Acetone Level LARGE H POC Glucose 10/01/18 22:48 POC Glucose > 500 H* Assessment/Plan All Active Problems (Last Updated 02/08/18 @ 11:27 by Jenifer Germain) DKA (diabetic ketoacidoses) (Acute) Chronic Problems (Last Updated 02/08/18 @ 11:27 by Jenifer Germain) Nicotine abuse (Chronic) Thrombocytopenia (Chronic) Diabetes type I (Chronic) History of alcohol abuse (Chronic) CAD (coronary artery disease) (Chronic) Dental caries (Chronic) Plan - admit to ICU - consult database security administrator - DKA protocol - get CXR if not done in ER - LMWH for DVT prophylaxis - nicoderm patch 14mg q day NPO on insulin drip- hold other meds for now Code Visit Inpatient E&M: 79887 Init Hosp L3
--- NOTE | 2018-10-02 01:34 | ED.RN ---
DR WRIGHT NOTIFIED OF K+, CO2, AND GLUCOSE RESULTS
[2018-10-02 01:35] LABS: Anion Gap 31 (5-15); BUN 33 mg/dL (7-18); BUN/Creat Ratio 17.9 RATIO (10-20); Calcium,Total 7.7 mg/dL (8.5-10.1); Chloride 85 mmol/L (98-107); Creatinine, Serum 1.84 mg/dL (0.70-1.30); EST Glomerular Filtration Rate 43 mL/min (>60); Est Glom Filt Rate - Afr Amer 52 mL/min (>60); Estimated Creatinine Clearance 51.71 ml/min; Glucose 682 mg/dL (74-106); Potassium 6.2 mmol/L (3.5-5.1); Sodium Level 123 mmol/L (136-145)
--- NOTE | 2018-10-02 01:50 | NURSING ---
Report received from ER. Pt room assignment [id number]. Room and nurse ready for patient.
--- NOTE | 2018-10-02 01:53 | NURSING ---
PER DR. WRIGHT AND DR. OCONNOR DO NOT ADJUST INSULIN YET D/T GLUCOSE DROPPING TO [phone] FROM 800 .
--- NOTE | 2018-10-02 02:19 | RAD_ITS ---
STUDY: X-RAY CHEST REASON FOR EXAM: Male, 43 years old. Shortness of breath TECHNIQUE: Frontal view COMPARISON: 02/10/2018 FINDINGS: The lungs are clear and expanded. There is no demonstrated pleural abnormality. Normal size heart. Normal mediastinum and sherry. Normal visualized pulmonary arteries. Normal visualized aortic arch and descending thoracic aorta. Normal visualized thoracic spine. Normal visualized ribs, clavicles, and shoulders. There is no demonstrated abnormality of the visualized soft tissue structures of the upper abdomen. RAD/Chest 1 View (Portable) IMPRESSION: Normal x-ray examination of the chest. Electronically Signed: Portillo Joseph MD at 3:31 EST , Service support ,
[2018-10-02 02:26] LABS: Bedside Glucose > 500 mg/dL (70-110)
[2018-10-02 02:26] LABS: Bedside Glucose > 500 mg/dL (70-110)
--- NOTE | 2018-10-02 02:33 | ED.RN ---
REPORT GIVEN TO TEODORO LUU IN ICU.
[2018-10-02] MEDS: 0.9% Normal Saline 1,000 ML 250 ML IV (03:26)
[2018-10-02 04:26] LABS: Bedside Glucose > 500 mg/dL (70-110)
[2018-10-02 04:26] LABS: Bedside Glucose > 500 mg/dL (70-110)
[2018-10-02 04:36] LABS: Bedside Glucose 447 mg/dL (70-110)
[2018-10-02] MEDS: 0.9% NaCl Peripheral Flush Adult/Peds IV ×3 (04:38→18:15)
[2018-10-02 05:02] LABS: Absolute Lymphocyte Count 2.96 X10^3/ul (0.83-4.51); Absolute Neutrophil Count 24.7 X10^3/uL (2.0-7.7); Basophil# 0.04 X10^3/uL; Basophil% 0.1 % (0-1); Differential Indicated SCAN CRITERIA MET; Eosinophil# 0.03 X10^3/uL; Eosinophils% 0.1 % (0-5); Hematocrit 38.5 % (40-54); Hemoglobin 13.6 g/dl (13.0-16.5); Lymphocyte # 2.96 X10^3/ul (4.0); Lymphocyte % 9.5 % (19-41); Mean Corp Hgb Conc 35.3 g/gl (32-36); Mean Corpuscular Hgb 33.3 pg (27.0-32.0); Mean Corpuscular Volume 94.1 fL (80-94); Mean Platelet Vol. 9.8 fl (6.2-12.0); Monocyte# 2.98 X10^3/uL; Monocyte% 9.6 % (0-10); Neutrophil # 24.67 X10^3/uL (2.7-7.7); Neutrophil % 79.4 % (47-70); POSITIVE COUNT YES; POSITIVE DIFFERENTIAL YES; POSITIVE MORPHOLOGY YES; Platelet Count 292 K/mm3 (150-450); RBC Distribution Width CV 12.2 % (11.6-14.6); Red Blood Count 4.09 M/mm3 (4.6-6.2)
[2018-10-02 05:03] LABS: White Blood Count 31.1 K/mm3 (4.4-11.0)
[2018-10-02 05:12] LABS: Anion Gap 28 (5-15); BUN 31 mg/dL (7-18); BUN/Creat Ratio 18.2 RATIO (10-20); Calcium,Total 7.4 mg/dL (8.5-10.1); Chloride 92 mmol/L (98-107); EST Glomerular Filtration Rate 47 mL/min (>60); Est Glom Filt Rate - Afr Amer 57 mL/min (>60); Estimated Creatinine Clearance 56.29 ml/min; Glucose 367 mg/dL (74-106); Sodium Level 129 mmol/L (136-145)
[2018-10-02 05:26] LABS: Bedside Glucose 340 mg/dL (70-110)
[2018-10-02 05:27] LABS: Anisocytosis RARE; Differential Comment SEE COMMENTS; Macrocytosis RARE; Platelet Estimate ADEQUATE (ADEQ); Toxic Granulation RARE
[2018-10-02 06:06] LABS: Bedside Glucose 324 mg/dL (70-110)
--- NOTE | 2018-10-02 06:43 | CON.PCM_ITS ---
Reason for Consult Date of Consultation: 10/02/18 Reason for Consultation: DKA History of Present Illness: The patient is a 43-year-old male, with a history as outlined below, who presented to the emergency department on October 02 with complaints of nausea, vomiting and shortness of breath. The patient is a known type I diabetic. He reports compliance with his home insulin regimen. However, the patient's last hemoglobin A1c was noted to be 10.2. [facility] was noted to be afebrile, tachycardic and hemodynamically stable. Laboratory evaluation revealed elevated white blood cell count to 34,000. Chemistry profile was notable for a sodium of 124, potassium of 6.2, chloride of 83, serum bicarbonate of 7 and evidence of acute kidney injury with a creatinine of 1.84. Glucose was elevated to 800. A large serum acetone level was noted. Plain film chest x-ray revealed no acute cardiopulmonary process. The patient received supplemental IV fluid hydration was started on an insulin infusion. He was subsequently transferred to the medical intensive care unit for ongoing management. Past Medical History Past Medical History (Chronic Problems): Chronic Problems (Last Reviewed 10/02/18 @ 02:38 by Belem Wall) Nicotine abuse (Chronic) Thrombocytopenia (Chronic) Diabetes type I (Chronic) History of alcohol abuse (Chronic) CAD (coronary artery disease) (Chronic) Dental caries (Chronic) Medical History: Medical History (Last Reviewed 10/02/18 @ 02:38 by Belem Wall) Cardiomyopathy (Suspected) I42.9 CAD (coronary artery disease) (Chronic) I25.10 Acute renal failure N17.9 Alcohol abuse F10.10 Anxiety F41.9 Depression F32.9 Diabetes type 1, controlled E10.9 dx : 08/2001 last exacerbation : dka : 05/13 hypoglycemic episode : never er visit : 05/13 Dilated cardiomyopathy I42.0 Elevated liver enzymes R74.8 H/O sepsis Z86.19 Hyponatremia E87.1 Lactic acidosis E87.2 Left atrial enlargement I51.7 Mycoplasma pneumonia J15.7 NSVT (nonsustained ventricular tachycardia) I47.2 Neuropathy G62.9 Prolonged QT interval R94.31 Seizure disorder G40.909 Steatosis of liver K76.0 Thrombocytopenia D69.6 Allergies zinc Allergy (Intermediate, Verified 04/27/18 09:36) Hives Home Medications: Ambulatory Orders Medication Instructions Recorded Aspirin [Low Dose Aspirin EC] 81 mg PO DAILY 11/14/16 lisinopril 2.5 mg tablet 2.5 mg PO QDAY #90 tab 11/02/17 blood sugar diagnostic strips See Dose Instructions .ROUTE 01/15/18 .MEDSUPPLY #120 ea levetiracetam 500 mg tablet 500 mg PO Q12H 01/18/18 mirtazapine 15 mg tablet 15 mg PO QHS 01/18/18 Insulin Lispro [Humalog KwikPen] See Protocol SQ ACHS 02/13/18 Basaglar KwikPen U-100 Insulin 100 20 unit SC QDAY #15 ml NS 04/02/18 unit/mL (3 mL) subcutaneous folic acid 800 mcg tablet 1 tab PO DAILY 30 Days #30 04/27/18 Humalog KwikPen (U- 100) Insulin See Rx Instructions SC .COMPLEX 06/18/18 100 unit/mL subcutaneous #45 ml NS Surgical History: Surgical History (Last Reviewed 10/02/18 @ 02:38 by Belem Wall) Hx of tonsillectomy Z98.890, Z90.89 Surgical History: noncontributory Psychiatric History: No pertinent psych hx Smoking Status: Current every day smoker Tobacco Use: Cigarettes - *Family History Maternal Family History: Family History (Last Reviewed 10/02/18 @ 02:38 by Belem Wall) Mother Arthritis Father Diabetes Grandfather Diabetes Grandmother Diabetes History Items: No pertinent history Review of Systems Constitutional: Denies: Chills, Fever Eyes: Denies: Blurred vision, Double vision HEENT: Denies: Head Aches, Sinus Congestion, Sinus Drainage Cardiovascular: Reports: Chest Pain Respiratory: Reports: Shortness of Breath. Denies: Cough, Sputum production Gastrointestinal: Reports: Abdominal Pain, Nausea Genitourinary: Denies: Dysuria Musculoskeletal: Denies: Joint Pain, Joint Tenderness Skin: Denies: Rash, Wounds Neurological: Denies: Numbness, Tingling, Focal weakness Psychiatric: Denies: Anxiety, Depression, Homicidal Ideations, Suicidal Ideations Hematologic/ Lymphatic: Denies: Easy Bruising, Easy Bleeding Objective: The patient's most recent lab work, culture data and imaging studies have all been personally reviewed. Blood and urine cultures are pending. - Physical Exam General: Alert, Cooperative, No apparent distress HEENT: Atraumatic, PERRLA, Normocephalic Oral: Dry Mucosa Neck: Supple, No Nodes, Trachea Midline Lungs: No rhonchi, No wheeze, No rales, Diminished Cardiovascular: Normal S1, Normal S2, No murmurs, No rub noted, No Gallop, Tachycardic Abdomen: Bowel Sounds Present, Soft, Non Tender Extremities: No clubbing, No cyanosis, No edema Skin: No breakdown Musculoskeletal: No Tenderness to Palpation of Joints or Extremities, No Muscle Wasting Lymphatic: No Cervical, Supraclavicular, or Inguinal Adenopathy Neurological: Cranial nerves II-XII grossly intact, Neuro grossly intact Psych/Mental Status: Normal Affect, Appropriate Vital Signs Temp Pulse Resp BP Pulse Ox 99.0 F 106 H 21 H 116/52 L 100 10/02/18 04:00 10/02/18 06:00 10/02/18 06:00 10/02/18 06:00 10/02/18 06:00 Oxygen Flow Rate (L/min) 2 Oxygen Delivery Method Room Air Weight: 154 lb 15.759 oz Body Mass Index (BMI) 20.9 Finger Stick Blood Glucose 324 Intake and Output for Last 24 Hours 09/30/18 10/01/18 10/02/18 23:59 23:59 23:59 Intake Total 699 / 699 Output Total 800 / 800 Balance -101 / -101 Laboratory Tests Past 24 Hrs 10/01/18 10/01/18 10/01/18 23:14 23:14 23:14 WBC 34.3 H* RBC 4.61 Hgb 15.4 Hct 45.9 MCV 99.6 H MCH 33.4 H MCHC 33.6 RDW 12.6 RDW Differential 45.6 H Plt Count 367 MPV 11.3 Immature Gran % (Auto) 2.300 H Neut % (Auto) 81.9 H Lymph % (Auto) 6.8 L [place] % (Auto) 8.6 Eos % (Auto) 0.1 Baso % (Auto) 0.3 Absolute Neuts (auto) 28.1 H Absolute Lymphs (auto) 2.32 Total Counted Not Reportable Differential Comment SEE COMMENTS Diff Path Review May foll Toxic Granulation RARE Platelet Estimate ADEQUATE Anisocytosis RARE Macrocytosis RARE Specimen Type VBG pH VBG pO2 VBG O2 Sat (Calc) VBG O2 Content VBG Base Excess POC Mix VBG pCO2 Pt Tmp O2 Delivery Device Liter Flow Blood Gas Notified Whom Sodium Cancelled Potassium Cancelled Chloride Cancelled Carbon Dioxide Cancelled Anion Gap Cancelled BUN Cancelled Creatinine Cancelled Estim Creat Clear Calc Cancelled Est GFR (MDRD) Af Amer Cancelled Est GFR (MDRD) Non-Af Cancelled BUN/Creatinine Ratio Cancelled Glucose Cancelled Calcium Cancelled Phosphorus Cancelled Magnesium Cancelled Urine Color Urine Clarity Urine pH Ur Specific [place] Urine Protein Urine Glucose (UA) Urine Ketones Urine Occult Blood Urine Nitrite Urine Bilirubin Urine Urobilinogen Ur Leukocyte Esterase Urine RBC Urine WBC Ur Squamous Epith Cells Ur Transition Epith Cell Urine Bacteria Urine Mucus Acetone Level Cancelled 10/01/18 10/01/18 10/02/18 23:56 23:57 00:25 WBC RBC Hgb Hct MCV MCH MCHC RDW RDW Differential Plt Count MPV Immature Gran % (Auto) Neut % (Auto) Lymph % (Auto) [place] % (Auto) Eos % (Auto) Baso % (Auto) Absolute Neuts (auto) Absolute Lymphs (auto) Total Counted Differential Comment Diff Path Review Toxic Granulation Platelet Estimate Anisocytosis Macrocytosis Specimen Type JAKY VBG pH 7.06 L* VBG pO2 32 VBG O2 Sat (Calc) 41 L VBG O2 Content 7 L VBG Base Excess -24 L POC Mix VBG pCO2 Pt Tmp 21.5 L O2 Delivery Device Nasal Can Liter Flow 2.0 Blood Gas Notified Whom ED Sodium 124 L Potassium 6.2 H* Chloride 83 L Carbon Dioxide 7.0 L* Anion Gap 34 H BUN 33 H Creatinine 1.84 H Estim Creat Clear Calc 51.71 Est GFR (MDRD) Af Amer 52 L Est GFR (MDRD) Non-Af 43 L BUN/Creatinine Ratio 17.9 Glucose 800 H* Calcium 7.8 L Phosphorus 8.8 H Magnesium 2.2 Urine Color Straw Urine Clarity Clear Urine pH 6.0 Ur Specific [place] 1.020 Urine Protein 30 H Urine Glucose (UA) 1000 H Urine Ketones 150 H Urine Occult Blood 10 H Urine Nitrite Negative Urine Bilirubin Negative Urine Urobilinogen Normal Ur Leukocyte Esterase Negative Urine RBC 0 SEEN Urine WBC 0 SEEN Ur Squamous Epith Cells 0 SEEN Ur Transition Epith Cell 0-5 SEEN Urine Bacteria 0 SEEN Urine Mucus 0 SEEN Acetone Level 10/02/18 10/02/18 10/02/18 00:25 01:10 04:30 WBC RBC Hgb Hct MCV MCH MCHC RDW RDW Differential Plt Count MPV Immature Gran % (Auto) Neut % (Auto) Lymph % (Auto) [place] % (Auto) Eos % (Auto) Baso % (Auto) Absolute Neuts (auto) Absolute Lymphs (auto) Total Counted Differential Comment Diff Path Review Toxic Granulation Platelet Estimate Anisocytosis Macrocytosis Specimen Type VBG pH VBG pO2 VBG O2 Sat (Calc) VBG O2 Content VBG Base Excess POC Mix VBG pCO2 Pt Tmp O2 Delivery Device Liter Flow Blood Gas Notified Whom Sodium 123 L 129 L Potassium 6.2 H* 4.0 Chloride 85 L 92 L Carbon Dioxide 7.0 L* 9.0 L* Anion Gap 31 H 28 H BUN 33 H 31 H Creatinine 1.84 H 1.70 H Estim Creat Clear Calc 51.71 56.29 Est GFR (MDRD) Af Amer 52 L 57 L Est GFR (MDRD) Non-Af 43 L 47 L BUN/Creatinine Ratio 17.9 18.2 Glucose 682 H* 367 H Calcium 7.7 L 7.4 L Phosphorus Magnesium Urine Color Urine Clarity Urine pH Ur Specific [place] Urine Protein Urine Glucose (UA) Urine Ketones Urine Occult Blood Urine Nitrite Urine Bilirubin Urine Urobilinogen Ur Leukocyte Esterase Urine RBC Urine WBC Ur Squamous Epith Cells Ur Transition Epith Cell Urine Bacteria Urine Mucus Acetone Level LARGE H 10/02/18 10/02/18 04:30 04:30 WBC 31.1 H* RBC 4.09 L Hgb 13.6 Hct 38.5 L MCV 94.1 H MCH 33.3 H MCHC 35.3 RDW 12.2 RDW Differential 41.0 Plt Count 292 MPV 9.8 Immature Gran % (Auto) 1.300 H Neut % (Auto) 79.4 H Lymph % (Auto) 9.5 L [place] % (Auto) 9.6 Eos % (Auto) 0.1 Baso % (Auto) 0.1 Absolute Neuts (auto) 24.7 H Absolute Lymphs (auto) 2.96 Total Counted Not Reportable Differential Comment SEE COMMENTS Diff Path Review May foll Toxic Granulation RARE Platelet Estimate ADEQUATE Anisocytosis RARE Macrocytosis RARE Specimen Type VBG pH VBG pO2 VBG O2 Sat (Calc) VBG O2 Content VBG Base Excess POC Mix VBG pCO2 Pt Tmp O2 Delivery Device Liter Flow Blood Gas Notified Whom Sodium Potassium Chloride Carbon Dioxide Anion Gap BUN Creatinine Estim Creat Clear Calc Est GFR (MDRD) Af Amer Est GFR (MDRD) Non-Af BUN/Creatinine Ratio Glucose Calcium Phosphorus Magnesium Urine Color Urine Clarity Urine pH Ur Specific [place] Urine Protein Urine Glucose (UA) Urine Ketones Urine Occult Blood Urine Nitrite Urine Bilirubin Urine Urobilinogen Ur Leukocyte Esterase Urine RBC Urine WBC Ur Squamous Epith Cells Ur Transition Epith Cell Urine Bacteria Urine Mucus Acetone Level LARGE H POC Glucose 10/02/18 10/02/18 10/02/18 05:59 05:15 04:24 POC Glucose 324 H 340 H 447 H 10/02/18 10/02/18 10/02/18 02:59 02:14 01:04 POC Glucose > 500 H* > 500 H* > 500 H* 10/02/18 10/01/18 00:06 22:48 POC Glucose > 500 H* > 500 H* Clinical Impression(s) from Imaging Studies Chest X-Ray 10/02/18 02:19 IMPRESSION: Normal x-ray examination of the chest. Electronically Signed: Portillo Joseph MD at 3:31 EST , Service support , Assessment/Plan RECOMMENDATIONS: 1. Continue management per DKA protocol with supplemental IV fluid hydration and continuous insulin infusion. 2. Administer 2 L of LR bolus now. 3. Patient to remain n.p.o. until anion gap has been closed x2. 4. Diabetic education to be provided. 5. Aggressive electrolyte repletion as indicated. IMPRESSIONS: 1. Diabetic ketoacidosis Unclear precipitating event, although suspect a component of noncompliance, given the patient's elevated hemoglobin A1c. Although the patient's white blood cell count is elevated, this may be a leukemoid reaction, as he has been afebrile and does not have a readily identifiable source of infection. Nevertheless, for the sake of completeness, we will obtain blood and urine cultures. We will hold off on antibiotics at this time. Continue supplemental IV fluid hydration and continuous insulin infusion per DKA protocol. Continue to monitor serial electrolytes and aggressively replace potassium as needed. Patient to remain n.p.o. until anion gap has been closed x2. 2. Acute kidney injury Likely prerenal in etiology secondary to osmotic diuresis in the setting of DKA. Anticipate improvement in creatinine with IV fluid resuscitation. Urine output is appropriate at this time. There is no indication for renal replacement therapy. This note was generated with [employer] dictation software. It may contain incorrect words, spelling, and punctuation that were not noted in checking the note before signing. Code Visit Inpatient E&M: 00693 Init Hosp L3
[2018-10-02 07:15] LABS: Bedside Glucose 277 mg/dL (70-110)
[2018-10-02] MEDS: Dext 5%-0.45% NS 1,000 ML 150 ML IV (08:00)
[2018-10-02 08:01] LABS: Bedside Glucose 231 mg/dL (70-110)
[2018-10-02 08:01] LABS: Hemoglobin A1c 10.2 % (4.2-6.3)
--- NOTE | 2018-10-02 08:36 | ED.VISSUMM ---
- ER Visit Summary Date of Service: 10/02/18 Chief Complaint: Nausea vomiting shortness of breath and high blood sugars History of Present Illness: The patient is a 43 M presenting for evaluation secondary to the above. Patient is a type I diabetic. Patient states that about 10 hours ago he had a precipitous onset of severe nausea and vomiting. He states that he has had progressively elevating blood sugars, and is getting progressively more short of breath. Patient denies that he had any sort of other infectious symptoms such as fever sore throat runny nose diarrhea cough. Patient states that he has had prior similar episodes in the past. Physical Examination: Vital signs notable for heart rate of 113 respiratory rate 24. Thin male visibly tachypneic. Head normocephalic. Dry mucous membranes. Heart was tachycardic regular. Lung sounds are clear without respiratory distress. Abdomen was nontender and soft. Extremities nontender nonedematous. No skin rashes noted. Test Results: EKG demonstrates peak T waves and a rate of 159. CBC shows a white count of 34, chemistry shows a potassium of 6.2 a bicarb of 7 and anion gap of 34 and a creatinine of 1.8. ABG shows a pH of 7 Emergency Department Course and Treatment: Patient presented for evaluation secondary to vomiting in the setting of diabetes. I have a strong suspicion for DKA. IV was established on the patient was given initial 2 L normal saline. An EKG demonstrated peak T waves, so an insulin drip was started prior to receiving the patient's metabolic panel. Metabolic panel ended up showing the patient had significant DKA with a glucose in the 800s. Discussed this with hospitalist patient was admitted ICU. Disposition: Admission Impression: 1. DKA Critical care time 40 minutes This note was generated with [employer] dictation software. It may contain incorrect words, spelling, and punctuation that were not noted in review of the chart prior to signing ED Disposition - Plan for ED Patient: Disposition: Acute Care Hospital [facility] Chief Complaint: Shortness of Breath
--- NOTE | 2018-10-02 08:39 | ED.DCSUM_ITS ---
- ER Visit Summary Date of Service: 10/02/18 Chief Complaint: Nausea vomiting shortness of breath and high blood sugars History of Present Illness: The patient is a 43 M presenting for evaluation secondary to the above. Patient is a type I diabetic. Patient states that about 10 hours ago he had a precipitous onset of severe nausea and vomiting. He states that he has had progressively elevating blood sugars, and is getting progressively more short of breath. Patient denies that he had any sort of oth er infectious symptoms such as fever sore throat runny nose diarrhea cough. Patient states that he has had prior similar episodes in the past. Physical Examination: Vital signs notable for heart rate of 113 respiratory rate 24. Thin male visibly tachypneic. Head normocephalic. Dry mucous membranes. Heart was tachycardic regular. Lung sounds are clear without respiratory distress. Abdomen was nontender and soft. Extremities nontender nonedematous. No skin rashes noted. Test Results: EKG demonstrates peak T waves and a rate of 159. CBC shows a white count of 34, chemistry shows a potassium of 6.2 a bicarb of 7 and anion gap of 34 and a creatinine of 1.8. ABG shows a pH of 7 Emergency Department Course and Treatment: Patient presented for evaluation secondary to vomiting in the setting of diabetes. I have a strong suspicion for DKA. IV was established on the patient was given initial 2 L normal saline. An EKG demonstrated peak T waves, so an insulin drip was started prior to receiving the patient's metabolic panel. Metabolic panel ended up showing the patient had significant DKA with a glucose in the 800s. Discussed this with hospitalist patient was admitted ICU. Disposition: Admission Impression: 1. DKA Critical care time 40 minutes This note was generated with [employer] dictation software. It may contain incorrect words, spelling, and punctuation that were not noted in review of the chart prior to signing ED Disposition - Plan for ED Patient: Disposition: Acute Care Hospital [facility] Chief Complaint: Shortness of Breath
[2018-10-02 09:06] LABS: Bedside Glucose 289 mg/dL (70-110)
[2018-10-02] MEDS: Lactated Ringers 1,000 ML 999 ML IV ×2 (09:14→10:23)
[2018-10-02] MEDS: Enoxaparin 40 MG/0.4 ML Syringe SC (09:16)
[2018-10-02 09:17] LABS: Anion Gap 18 (5-15); BUN 27 mg/dL (7-18); Calcium,Total 7.4 mg/dL (8.5-10.1); Chloride 97 mmol/L (98-107); Creatinine, Serum 1.59 mg/dL (0.70-1.30); EST Glomerular Filtration Rate 51 mL/min (>60); Est Glom Filt Rate - Afr Amer 62 mL/min (>60); Estimated Creatinine Clearance 60.18 ml/min; Glucose 246 mg/dL (74-106); Potassium 4.4 mmol/L (3.5-5.1); Sodium Level 130 mmol/L (136-145)
--- NOTE | 2018-10-02 09:38 | CASEMGMT ---
RN CM ASSESSMENT Intro role of CM to patient in room. HGB A1c 10.2, Insulin gtt, data processor consult. PCP: Saida Specialist: COMFORT Phillips Follow up appt made for Wednesday, October 17, 2018 @ 8:45 am. appointment placed in worklist DC appts and card given to patient. PHARMACY: [facility] PRESCRIPTION COVERGE: yes TRANSPORTATION: drives, but does not have car now. Pt stated his parents will drive him if needed LIVING ARRANGEMENTS: lives independently DME: none. Pt has blood glucose monitoring equipment. States he knows how to use, but doesn't do what I should always. SW Consult:: Pt withdrawn, ? decreased motivation, depression. DC PLAN:Home
[2018-10-02 10:01] LABS: Bedside Glucose 244 mg/dL (70-110)
[2018-10-02 10:42] LABS: Pathologist Review Reviewed
[2018-10-02 10:49] LABS: Pathologist Review Reviewed
[2018-10-02 11:00] LABS: Bedside Glucose 254 mg/dL (70-110)
[2018-10-02 12:06] LABS: Bedside Glucose 201 mg/dL (70-110)
[2018-10-02 13:16] LABS: Bedside Glucose 168 mg/dL (70-110)
[2018-10-02 13:32] LABS: Anion Gap 10 (5-15); BUN 21 mg/dL (7-18); BUN/Creat Ratio 14.9 RATIO (10-20); Calcium,Total 7.3 mg/dL (8.5-10.1); Chloride 103 mmol/L (98-107); Creatinine, Serum 1.41 mg/dL (0.70-1.30); EST Glomerular Filtration Rate 58 mL/min (>60); Est Glom Filt Rate - Afr Amer 71 mL/min (>60); Estimated Creatinine Clearance 67.86 ml/min; Glucose 153 mg/dL (74-106); Potassium 3.8 mmol/L (3.5-5.1); Sodium Level 135 mmol/L (136-145)
[2018-10-02 14:06] LABS: Bedside Glucose 121 mg/dL (70-110)
[2018-10-02 15:16] LABS: Bedside Glucose 83 mg/dL (70-110)
[2018-10-02 16:05] LABS: Bedside Glucose 88 mg/dL (70-110)
--- NOTE | 2018-10-02 16:41 | PCM.HOSP.N ---
Hospitalist Note Patient was seen and examined today in ICU, I talked briefly with critical care who was also seeing him. Patient remains on an insulin drip at this time and he is not stable for discharge to the floor or home at this time. At the time of my examination today, patient has no specific complaints, he states he follows up with COMFORT bills who is a nurse practitioner in the practice of diabetes. Patient's hemoglobin A1c at this time was 10.2, previous hemoglobin A1c's done at the hospital here have never showed adequate control of his diabetes.
[2018-10-02 17:10] LABS: Bedside Glucose 130 mg/dL (70-110)
[2018-10-02 17:44] LABS: Anion Gap 12 (5-15); BUN 16 mg/dL (7-18); BUN/Creat Ratio 13.1 RATIO (10-20); Calcium,Total 7.4 mg/dL (8.5-10.1); Chloride 104 mmol/L (98-107); Creatinine, Serum 1.22 mg/dL (0.70-1.30); EST Glomerular Filtration Rate 69 mL/min (>60); Est Glom Filt Rate - Afr Amer 84 mL/min (>60); Estimated Creatinine Clearance 78.43 ml/min; Glucose 118 mg/dL (74-106); Potassium 3.8 mmol/L (3.5-5.1); Sodium Level 137 mmol/L (136-145)
[2018-10-02] MEDS: Insulin Lispro 100 UNIT/ML INSULN.PEN 12 UNIT SC (18:15)
[2018-10-02] MEDS: Insulin Lispro 100 UNIT/ML INSULN.PEN SC ×2 (18:15→22:45)
[2018-10-02] MEDS: 0.9% Normal Saline 1,000 ML 150 ML IV (18:16)
[2018-10-02 18:26] LABS: Bedside Glucose 152 mg/dL (70-110)
[2018-10-02] MEDS: Acetaminophen 325 MG Tablet 650 MG PO (22:43)
[2018-10-02] MEDS: Phenol/Sodium Phenolate 180ML 1 SPRAY MUCOUS MEM (22:44)
[2018-10-02 22:55] LABS: Bedside Glucose 194 mg/dL (70-110)
[2018-10-03] MEDS: 0.9% Normal Saline 1,000 ML 150 ML IV ×2 (01:10→07:46)
[2018-10-03 03:06] VITALS: BP 113/66; PULSE 90; RESP 16; TEMP 36.8; O2SAT 99
[2018-10-03 05:55] LABS: Absolute Neutrophil Count 7.1 X10^3/uL (2.0-7.7); Basophil# 0.01 X10^3/uL; Basophil% 0.1 % (0-1); Eosinophil# 0.07 X10^3/uL; Eosinophils% 0.7 % (0-5); Hematocrit 31.2 % (40-54); Hemoglobin 11.3 g/dl (13.0-16.5); Mean Corp Hgb Conc 36.2 g/gl (32-36); Mean Corpuscular Hgb 32.9 pg (27.0-32.0); Mean Platelet Vol. 9.7 fl (6.2-12.0); Monocyte# 0.65 X10^3/uL; Neutrophil # 7.11 X10^3/uL (2.7-7.7); Neutrophil % 66.1 % (47-70); Platelet Count 214 K/mm3 (150-450); RBC Distribution Width CV 11.6 % (11.6-14.6); Red Blood Count 3.43 M/mm3 (4.6-6.2); White Blood Count 10.8 K/mm3 (4.4-11.0)
[2018-10-03 06:01] LABS: POSITIVE COUNT NO; POSITIVE DIFFERENTIAL NO; POSITIVE MORPHOLOGY NO
[2018-10-03 06:20] LABS: Anion Gap 9 (5-15); BUN 11 mg/dL (7-18); BUN/Creat Ratio 11.2 RATIO (10-20); Calcium,Total 7.5 mg/dL (8.5-10.1); Chloride 108 mmol/L (98-107); Creatinine, Serum 0.98 mg/dL (0.70-1.30); EST Glomerular Filtration Rate 89 mL/min (>60); Est Glom Filt Rate - Afr Amer 108 mL/min (>60); Estimated Creatinine Clearance 97.64 ml/min; Glucose 130 mg/dL (74-106); Potassium 3.3 mmol/L (3.5-5.1); Sodium Level 140 mmol/L (136-145)
[2018-10-03 07:38] VITALS: BP 117/74; PULSE 82; RESP 18; TEMP 36.6; O2SAT 100
[2018-10-03] MEDS: Insulin Lispro 100 UNIT/ML INSULN.PEN 12 UNIT SC ×2 (07:43→11:33)
[2018-10-03] MEDS: Phenol/Sodium Phenolate 180ML 1 SPRAY MUCOUS MEM (07:48)
[2018-10-03 08:01] LABS: Bedside Glucose 145 mg/dL (70-110)
--- NOTE | 2018-10-03 09:48 | CASEMGMT ---
SW met w/pt in regard to diagnosis of depression. Pt states he was seeing a psychiatrist at [facility], and sees a counselor in [place]. Pt states the psychiatrist moved, but they can still assist w/prescriptions until he can be seen by a new psychiatrist. Pt states the doctor here suggested he get on Prozac, as the physician here said the medication he is on does not help w/bipolar, which pt states he has been diagnosed with. Pt denies being suicidal, states felt like this only one time in his life and he believes it was due to an interaction between and antidepressant he was on at the time with some vitamins he was taking. Pt got off of this medication and has not felt suicidal since--this was 10 years ago. SW did speak to pt about going to other programs, pt states had been to Behavioral Health w/[facility], however was told he would be better served by going to AA. SW gave pt a list of other programs in the area, but also encouraged him, if it takes too long to get in to see a psychiatrist at [facility], to call the number on his card to find psychiatrists in the area who take his insurance. Pt states he also has a book of providers at home. Pt states has been in recovery for six months. Pt attends AA every Monday, Monday and Monday--pt plans to go today if discharged in time. Pt also does plan to follow up w/COMFORT Phillips regarding his diabetes. No further needs indicated or anticipated, pt in counseling, and may call to find a psychiatrist to see since the psychiatrist at [facility] has moved. CAMDEN Salcedo, OBSTETRICS TECHNICIAN
--- NOTE | 2018-10-03 11:13 | DCINST_ITS ---
You will use the following diet at home:: Calorie/Carbohydrate Controlled (specify 1200, 1400, etc) - 2200 gill diet Your food should be the consistency of: Regular Your liquids should be the consistency of: Regular/Thin Discharge Activity: Return to Normal Activity Weight Bearing Status: Full weight bearing Allergies/Adverse Reactions: Allergies zinc Allergy (Intermediate, Verified 04/27/18 09:36) Hives Medications to take at Discharge Aspirin [Low Dose Aspirin EC] 81 mg PO DAILY 11/14/16 lisinopril 2.5 mg tablet 2.5 mg PO QDAY #90 tab 11/02/17 blood sugar diagnostic strips See Dose Instructions .ROUTE .MEDSUPPLY #120 ea 01/15/18 levetiracetam 500 mg tablet 500 mg PO Q12H 01/18/18 mirtazapine 15 mg tablet 15 mg PO QHS 01/18/18 Insulin Lispro [Humalog KwikPen] See Protocol SQ ACHS 02/13/18 folic acid 800 mcg tablet 1 tab PO DAILY 30 Days #30 04/27/18 Acetaminophen [Tylenol Tablet] 650 mg PO Q4H PRN PRN tablet 10/03/18 Insulin Glargine,Hum.rec.anlog [Basaglar Kwikpen U-100] 30 unit SC QDAY #15 ml NS 10/03/18 Insulin Lispro [Humalog KwikPen] 15 unit SC TIDAC #1 insuln.pen 10/03/18 The following prescriptions were given: Insulin Glargine,Hum.rec.anlog [Basaglar Kwikpen U-100] 30 unit SC QDAY #15 ml NS Insulin Lispro [Humalog KwikPen] 15 unit SC TIDAC #1 insuln.pen Primary Care Physician: Moni Cintron MD [Primary Care Provider] - Please follow up with your Primary Care Physician in: in 2 weeks Test Results: Test results from this visit will be discussed in further detail at your follow- up appointment, if applicable. Please Follow Up With: Dory Phillips NP-C When: Monday
[2018-10-03 11:45] LABS: Bedside Glucose 104 mg/dL (70-110)
--- NOTE | 2018-10-04 20:19 | DS.PCM_ITS ---
Discharge Date and Diagnosis Date of Admission: 10/02/18 Date of Discharge: 10/03/18 - Primary Discharge Diagnosis #1 DKA #2 acute kidney injury secondary to dehydration #3 hyperkalemia #4 leukocytosis secondary to DKA - Secondary Discharge Diagnosis Chronic Problems (Last Reviewed 10/02/18 @ 02:38 by Belem Wall) Nicotine abuse (Chronic) Thrombocytopenia (Chronic) Diabetes type I (Chronic) History of alcohol abuse (Chronic) CAD (coronary artery disease) (Chronic) Dental caries (Chronic) Hospital Course and Treatment Operations: None Procedures: None Summary of Care Provided: The patient is a 43 year old M seen in the emergency room at [facility] with chief complaint of nausea, vomiting, and elevated blood sugars. Workup in the emergency room included labs which showed a white count of 34,000, potassium was 6.2, anion gap was 34, creatinine was 1.8. ABG was obtained which showed a pH of 7. Patient was given IV fluids in the emergency room and an insulin drip was started, patient was admitted to the ICU and was maintained on the insulin drip and labs were monitored. Patient improved and was transferred out to [place] [id number], his insulin was adjusted. Physical exam: On examination he appeared in good health and spirits. Vital signs as documented. Skin warm and dry and without overt rashes. Neck without JVD. Lungs clear. Heart exam notable for regular rhythm, normal sounds and absence of murmurs, rubs or gallops. Abdomen unremarkable and without evidence of organomegaly, masses, or abdominal aortic enlargement. Extremities nonedematous. Neuro: Cranial nerves II through XII are intact, no focal motor deficits were noted. Psych: Patient is alert and oriented x3, he does not appear anxious or depressed On 10/03/18, patient was seen and examined felt to be in stable condition for discharge home. - Physical Exam Vital Signs Temp Pulse Resp BP Pulse Ox 97.9 F 82 18 117/74 100 10/03/18 07:38 10/03/18 07:38 10/03/18 07:38 10/03/18 07:38 10/03/18 07:38 Oxygen Flow Rate (L/min) 2 Oxygen Delivery Method Room Air Weight: 70.3 kg Body Mass Index (BMI) 20.9 Finger Stick Blood Glucose 130 Intake and Output for Last 24 Hours 10/02/18 10/03/18 10/04/18 23:59 23:59 23:59 Intake Total 5414 / 5414 2424 / 2424 Output Total 2375 / 2375 Balance 3039 / 3039 2424 / 2424 Microbiology Past 72 Hours 10/01/18 23:56 Urine Culture - Final Urine, Random Culture exhibits no growth. 10/02/18 07:08 Blood Culture - Preliminary Blood Culture (Wb) - Right Forearm No growth in 48 hours. 10/02/18 06:50 Blood Culture - Preliminary Blood Culture (Wb) - Anticubital Right No growth in 48 hours. Discharge Activity: Return to Normal Activity Weight Bearing Status: Full weight bearing Home Medications: Medications to take at Discharge Aspirin [Low Dose Aspirin EC] 81 mg PO DAILY 11/14/16 lisinopril 2.5 mg tablet 2.5 mg PO QDAY #90 tab 11/02/17 blood sugar diagnostic strips See Dose Instructions .ROUTE .MEDSUPPLY #120 ea 01/15/18 levetiracetam 500 mg tablet 500 mg PO Q12H 01/18/18 mirtazapine 15 mg tablet 15 mg PO QHS 01/18/18 Insulin Lispro [Humalog KwikPen] See Protocol SQ ACHS 02/13/18 folic acid 800 mcg tablet 1 tab PO DAILY 30 Days #30 04/27/18 Acetaminophen [Tylenol Tablet] 650 mg PO Q4H PRN PRN tablet 10/03/18 Insulin Glargine,Hum.rec.anlog [Basaglar Kwikpen U-100] 30 unit SC QDAY #15 ml NS 10/03/18 Insulin Lispro [Humalog KwikPen] 15 unit SC TIDAC #1 insuln.pen 10/03/18 Following Prescrptions Were Given to Patient: Insulin Glargine,Hum.rec.anlog [Basaglar Kwikpen U-100] 30 unit SC QDAY #15 ml NS Insulin Lispro [Humalog KwikPen] 15 unit SC TIDAC #1 insuln.pen Primary Care Physician: Moni Cintron MD [Primary Care Provider] - Please follow up with your Primary Care Physician in: in 2 weeks Please Follow Up With: Dory Phillips NP-C When: Monday Disposition: Home Minutes spent on discharge:: 31 Patient Condition:: Stable Medical Necessity - Tobacco Use Smoking Status: Current every day smoker Tobacco Use: Cigarettes Meaningful Use Info Meaningful Use Diagnoses (Choose all that apply): None applicable Code Visit Inpatient E&M: 13445 Disch Hosp
== END 2018-10-03 12:20 | disposition home or self-care (01) | DRG 420 ==
LOC: ED 10-02 00:16 → ICU 10-02 02:52 → MS2 10-02 20:43
PROVIDERS: Internal Medicine Critical Care Medicine; Admitting Provider Family Medicine; Emergency Provider Emergency Medicine; Family Provider Internal Medicine; PCP Internal Medicine; Visit Provider Internal Medicine
DX: E10.9 Type 1 diabetes mellitus without complications (principal); Z79.4 Long term (current) use of insulin; N17.9 Acute kidney failure, unspecified; Z23 Encounter for immunization
CPT/HCPCS: 36415; 71045; 80048; 81001; 82009; 82803; 82962; 83036; 83735; 84100; 85025; 87040; 87086; 93005; 99284; 99406; J7030; J7120; 90686; A4216; J2405; J7799

== ENCOUNTER → 2019-01-01 10:39 | Outpatient (CLI) | payer MEDICARE, MEDICAID, SELFPAY ==
[2018-12-10 08:27] VITALS: BMI 21.5
[2019-01-01 11:53] LABS: Hemoglobin A1c 8.9 % (4.2-6.3)
[2019-01-01 11:56] LABS: Microalbumin,Random Urine 19.5 mg/L (NO RANGE EST.); Microalbumin:Creatinine Ratio 8.2 mg/g CRE (<30 mg/g CRE)
[2019-01-01 12:04] LABS: ALB/GLOB Ratio 1.1 RATIO (0.9-2.4); AST(SGOT) 25 U/L (15-37); Alanine Aminotransfer ALT/SGPT 27 U/L (16-61); Albumin, Serum 3.7 g/dL (3.2-5.0); Alkaline Phosphatase 105 U/L (45-117); Anion Gap 7 (5-15); BUN 10 mg/dL (7-18); BUN/Creat Ratio 12.5 RATIO (10-20); Calcium,Total 8.8 mg/dL (8.5-10.1); Chloride 105 mmol/L (98-107); Cholesterol 247 mg/dL (200); EST Glomerular Filtration Rate 112 mL/min (>60); Est Glom Filt Rate - Afr Amer 135 mL/min (>60); Globulin 3.3 g/dL (2.2-4.2); Glucose 194 mg/dL (74-106); High Density Lipoprotein 54 mg/dL; Potassium 3.9 mmol/L (3.5-5.1); Sodium Level 140 mmol/L (136-145); Triglycerides 303 mg/dL; Very Low Density Lipoprotein 61 mg/dL (5-40)
== END ==
PROVIDERS: Family Provider Internal Medicine; PCP Internal Medicine; Referring Provider Nurse Practitioner; Visit Provider Nurse Practitioner
DX: E10.65 Type 1 diabetes mellitus with hyperglycemia (principal); E10.8 Type 1 diabetes mellitus with unspecified complications
CPT/HCPCS: 36415; 80053; 80061; 82043; 82570; 83036

== ENCOUNTER 2019-04-13 15:11 | Inpatient (IN) | payer MEDICARE, MEDICAID, SELFPAY ==
[2018-12-10 08:27] VITALS: BMI 21.5
[2019-04-13] VITALS (15 sets, daily range): BP systolic 114–159; BP diastolic 7–85; PULSE 93–124; RESP 20–45; TEMP 36.1–36.3; O2SAT 98–100; BMI 21.6; BMI 23.8; BMI 22.4
[2019-04-13 15:26] LABS: Bedside Glucose > 500 mg/dL (70-110)
--- NOTE | 2019-04-13 15:33 | EKG12_ITS ---
Test Reason : DKA Blood Pressure : / mmHG Vent. Rate : 114 BPM Atrial Rate : 114 BPM P-R Int : 132 ms QRS Dur : 108 ms QT Int : 354 ms P-R-T Axes : 065 011 060 degrees QTc Int : 487 ms Sinus tachycardia Otherwise normal ECG Prominent T waves Confirmed by GOOD GEORGE, RADHA ([id number]), photograph editor FERMIN ARAYA ([id number]) on 04/15/2019 3:46:53 PM Referred By: JODI Confirmed By:RADHA FUNK MD
[2019-04-13] MEDS: 0.9% Normal Saline 1,000 ML 1000 ML IV ×2 (15:39→15:59)
--- NOTE | 2019-04-13 15:40 | RAD_ITS ---
STUDY: X-RAY CHEST REASON FOR EXAM: Male, 44 years old. Diabetes, altered level of consciousness TECHNIQUE: AP COMPARISON: 10/02/2018 FINDINGS: EKG leads project over the chest. The lungs are clear and expanded. There is no demonstrated pleural abnormality. Normal size heart. Normal mediastinum and sherry. Normal visualized pulmonary arteries. Normal visualized aortic arch and descending thoracic aorta. Normal visualized thoracic spine. Normal visualized ribs, clavicles, and shoulders. There is no demonstrated abnormality of the visualized soft tissue structures of the upper abdomen. RAD/Chest 1 View (Portable) IMPRESSION: Stable, nonacute portable x-ray examination of the chest. Electronically Signed: Juan J White MD at 15:55 EDT , Service support ,
--- NOTE | 2019-04-13 15:41 | ED.VIS.GEN ---
History of Present Illness Chief Complaint: Alt LOC Informant: Family - Other informant since patient is disoriented Onset: Days - Mother believes 2 to 3 days Context: - - Patient's disoriented and unable to provide history Timing: Continuous Quality: Rapid breathing, decreased level of consciousness Location: Brought from home by mother Current Severity: Severe Maximum Severity: Severe Worsened by: Uncertain Relieved by: Nothing Associated Symptoms: Unable to obtain Narrative: Per mother patient has history of type 1 diabetes, smokes and may have been on a drinking binge this past week. She tried to get him to come to the hospital earlier this morning at 10 AM. He refused. He is disoriented to time, person and place. Mother had to provide history which was limited because he lives in his own room and keeps to himself. Prior similar symptoms: Yes - Per mother Recent Illness/Hospitalization: Yes - Past Medical History (1) DKA (diabetic ketoacidoses) Status: Acute (2) CAD (coronary artery disease) Status: Chronic (3) History of alcohol abuse Status: Chronic (4) Nicotine abuse Status: Chronic (5) Thrombocytopenia Status: Chronic (6) Cardiomyopathy Status: Suspected Past Medical History - Allergies and Home Meds Allergies/Adverse Reactions: Allergies zinc Allergy (Intermediate, Verified 04/13/19 15:21) Hives Primary Care Physician: Moni Cintron MD [Primary Care Provider] - Prior records reviewed: Yes Surgical History: noncontributory Lives: With Family Smoking Status: Current every day smoker - Family History Maternal Family History: Family History (Last Reviewed 12/10/18 @ 08:24 by Jenifer Germain) Mother Arthritis Father Diabetes Grandfather Diabetes Grandmother Diabetes Family History: Reports: No pertinent history Review of Systems ROS: Unable to Obtain ENT: Reports: - - Complains of thirst Respiratory: Reports: Dyspnea Genitourinary: Reports: - - Increased urine output Physical Exam Vital Signs/Narrative: Vital Signs Temp Pulse Resp BP Pulse Ox 04/13/19 15:21 40 H 159/58 H 04/13/19 15:12 97.4 F L 121 H 38 H 147/85 H 98 Inital Vital Signs reviewed: Yes General: Well nourished, Well developed, Unkempt, Acute Distress Head: Normocephalic, Atraumatic Eyes: Perrl, EOMI. Negative for: Pale conjunctiva, Scleral icterus, - ENT: No rhinorrhea, TM's clear, Dry mucous membranes Neck: Supple, Nontender, No lymphadenopathy, No JVD Cardiovascular: Regular rhythm, No murmurs, Normal S1, Normal S2, Tachycardia Respiratory: CTA bilaterally, Chest nontender. Negative for: Rales, Rhonchi, Wheezing Abdomen: Soft, Nondistended, No masses, Tender, Hypoactive bowel sounds. Negative for: Normal bowel sounds, Guarding, Rebound tenderness, Hyperactive bowel sounds, Ventral hernia, Inguinal hernia, Umbilical hernia Rectal: Deferred : - - Normal external genitalia Back: Nontender, Normal Inspection Extremities: Nontender, No edema Skin: - - Skin appears mottled with delayed capillary refill Neurological: Cranial nerves II-XII grossly intact, Normal Strength, Normal Sensation, Normal DTR. Negative for: Alert, Oriented x3, Normal Gait Diagnostic/Tx/Re-eval Chest X-Ray - ED: 1 View - Critical care time 37 minutes, Read by ED Physician, Normal, Heart, Lungs, Mediastinum, Bony Structures, No Acute Disease VBG reveals a pH of 7.17, PCO2 9.8, PaO2 111, base excess -25, bicarb 3.6 with a total CO2 of less than 5. This reveals a significant metabolic acidosis consistent with DKA. Impressions Chest X-Ray 04/13/19 15:40 IMPRESSION: Stable, nonacute portable x-ray examination of the chest. Electronically Signed: Juan J White MD at 15:55 EDT , Service support , 04/13/19 15:40 Chest 1 View (Portable) [RAD] Stat Laboratory Results 04/13/19 04/13/19 04/13/19 15:20 15:28 15:28 WBC 27.8 H RBC 4.92 Hgb 15.1 Hct 44.2 MCV 89.8 MCH 30.7 MCHC 34.2 RDW 12.3 RDW Differential 40.0 Plt Count 372 MPV 10.7 Immature Gran % (Auto) 1.000 H Neut % (Auto) 83.4 H Lymph % (Auto) 4.0 L [place] % (Auto) 11.5 H Eos % (Auto) 0.0 Baso % (Auto) 0.1 Absolute Neuts (auto) 23.2 H Absolute Lymphs (auto) 1.10 Total Counted Not Reportable Differential Comment SCANNED Sodium 123 L Potassium 5.7 H Chloride 87 L Carbon Dioxide 6.0 L* Anion Gap 30 H BUN 29 H Creatinine 1.80 H Estim Creat Clear Calc 52.62 Est GFR (MDRD) Af Amer 53 L Est GFR (MDRD) Non-Af 44 L BUN/Creatinine Ratio 16.1 Glucose 691 H* Calcium 8.6 Ethyl Alcohol Acetone Level POC Glucose > 500 H* 04/13/19 04/13/19 04/13/19 15:28 15:28 16:07 WBC RBC Hgb Hct MCV MCH MCHC RDW RDW Differential Plt Count MPV Immature Gran % (Auto) Neut % (Auto) Lymph % (Auto) [place] % (Auto) Eos % (Auto) Baso % (Auto) Absolute Neuts (auto) Absolute Lymphs (auto) Total Counted Differential Comment Sodium Potassium Chloride Carbon Dioxide Anion Gap BUN Creatinine Estim Creat Clear Calc Est GFR (MDRD) Af Amer Est GFR (MDRD) Non-Af BUN/Creatinine Ratio Glucose Calcium Ethyl Alcohol < 3.0 Acetone Level LARGE H POC Glucose > 500 H* - Rhythm Strip Rhythm Strip: Sinus Tach Rate: 139 - Prominent peaked T waves on the monitor - EKG Initial EKG Interpretation: Sinus Tachycardia - Regular rate is 114. Patient has peaked T waves consistent with hyperkalemia. ND interval normal. Cures duration is prolonged. QT interval is normal. - Medical Decision Making Patient's GGT is greater than 500. In light of patient being tachycardic, tachypneic with ketotic odor to his breath disorientation and peaked T waves on his EKG suspect he is in DKA. DKA order set was initiated. He received 2 L of normal saline. To treat his hyperkalemia he will receive 1 amp of calcium chloride, 2 A of bicarb, 5 units of insulin IV push. Suspect his prolonged QRS is secondary to hyperkalemia. Patient received his 2 L of normal saline. Laboratory results are consistent with DKA. Will start on insulin drip and contact hospitalist for admission to the hospital/ICU - Critical Care Time Critical care time (excluding procedures): 30-74 minutes, Discussing w/Patient &/or Family/Pellet Press Operator, Discussing w/Consultants, Arranging Admission or Transfer, Performing Direct Patient Care at Bedside ED Disposition - Plan for ED Patient: Disposition: Acute Care Hospital [facility] Diagnosis: DKA, type 1, Metabolic encephalopathy, ELIZABETH (acute kidney injury), Hyponatremia, Hyperkalemia, Sinus tachycardia by electrocardiogram Referrals: Moni Cintron MD [Primary Care Provider] -
--- NOTE | 2019-04-13 15:45 | ED.DCSUM_ITS ---
History of Present Illness Chief Complaint: Alt LOC Informant: Family - Other informant since patient is disoriented Onset: Days - Mother believes 2 to 3 days Context: - - Patient's disoriented and unable to provide history Timing: Continuous Quality: Rapid breathing, decreased level of consciousness Location: Brought from home by mother Current Severity: Severe Maximum Severity: Severe Worsened by: Uncertain Relieved by: Nothing Associated Symptoms: Unable to obtain Narrative: Per mother patient has history of type 1 diabetes, smokes and may have been on a drinking binge this past week. She tried to get him to come to the hospital ear lier this morning at 10 AM. He refused. He is disoriented to time, person and place. Mother had to provide history which was limited because he lives in his own room and keeps to himself. Prior similar symptoms: Yes - Per mother Recent Illness/Hospitalization: Yes - Past Medical History (1) DKA (diabetic ketoacidoses) Status: Acute (2) CAD (coronary artery disease) Status: Chronic (3) History of alcohol abuse Status: Chronic (4) Nicotine abuse Status: Chronic (5) Thrombocytopenia Status: Chronic (6) Cardiomyopathy Status: Suspected Past Medical History - Allergies and Home Meds Allergies/Adverse Reactions: Allergies zinc Allergy (Intermediate, Verified 04/13/19 15:21) Hives Primary Care Physician: Moni Cintron MD [Primary Care Provider] - Prior records reviewed: Yes Surgical History: noncontributory Lives: With Family Smoking Status: Current every day smoker - Family History Maternal Family History: Family History (Last Reviewed 12/10/18 @ 08:24 by Jenifer Germain) Mother Arthritis Father Diabetes Grandfather Diabetes Grandmother Diabetes Family History: Reports: No pertinent history Review of Systems ROS: Unable to Obtain ENT: Reports: - - Complains of thirst Respiratory: Reports: Dyspnea Genitourinary: Reports: - - Increased urine output Physical Exam Vital Signs/Narrative: Vital Signs Temp Pulse Resp BP Pulse Ox 04/13/19 15:21 40 H 159/58 H 04/13/19 15:12 97.4 F L 121 H 38 H 147/85 H 98 Inital Vital Signs reviewed: Yes General: Well nourished, Well developed, Unkempt, Acute Distress Head: Normocephalic, Atraumatic Eyes: Perrl, EOMI. Negative for: Pale conjunctiva, Scleral icterus, - ENT: No rhinorrhea, TM's clear, Dry mucous membranes Neck: Supple, Nontender, No lymphadenopathy, No JVD Cardiovascular: Regular rhythm, No murmurs, Normal S1, Normal S2, Tachycardia Respiratory: CTA bilaterally, Chest nontender. Negative for: Rales, Rhonchi, Wheezing Abdomen: Soft, Nondistended, No masses, Tender, Hypoactive bowel sounds. Negative for: Normal bowel sounds, Guarding, Rebound tenderness, Hyperactive bowel sounds, Ventral hernia, Inguinal hernia, Umbilical hernia Rectal: Deferred : - - Normal external genitalia Back: Nontender, Normal Inspection Extremities: Nontender, No edema Skin: - - Skin appears mottled with delayed capillary refill Neurological: Cranial nerves II-XII grossly intact, Normal Strength, Normal Sensation, Normal DTR. Negative for: Alert, Oriented x3, Normal Gait Diagnostic/Tx/Re-eval Chest X-Ray - ED: 1 View - Critical care time 37 minutes, Read by ED Physician, Normal, Heart, Lungs, Mediastinum, Bony Structures, No Acute Disease VBG reveals a pH of 7.17, PCO2 9.8, PaO2 111, base excess -25, bicarb 3.6 with a total CO2 of less than 5. This reveals a significant metabolic acidosis consistent with DKA. Impressions Chest X-Ray 04/13/19 15:40 IMPRESSION: Stable, nonacute portable x-ray examination of the chest. Electronically Signed: Juan J White MD at 15:55 EDT , Service support , 04/13/19 15:40 Chest 1 View (Portable) [RAD] Stat Laboratory Results 04/13/19 04/13/19 04/13/19 15:20 15:28 15:28 WBC 27.8 H RBC 4.92 Hgb 15.1 Hct 44.2 MCV 89.8 MCH 30.7 MCHC 34.2 RDW 12.3 RDW Differential 40.0 Plt Count 372 MPV 10.7 Immature Gran % (Auto) 1.000 H Neut % (Auto) 83.4 H Lymph % (Auto) 4.0 L [place] % (Auto) 11.5 H Eos % (Auto) 0.0 Baso % (Auto) 0.1 Absolute Neuts (auto) 23.2 H Absolute Lymphs (auto) 1.10 Total Counted Not Reportable Differential Comment SCANNED Sodium 123 L Potassium 5.7 H Chloride 87 L Carbon Dioxide 6.0 L* Anion Gap 30 H BUN 29 H Creatinine 1.80 H Estim Creat Clear Calc 52.62 Est GFR (MDRD) Af Amer 53 L Est GFR (MDRD) Non-Af 44 L BUN/Creatinine Ratio 16.1 Glucose 691 H* Calcium 8.6 Ethyl Alcohol Acetone Level POC Glucose > 500 H* 04/13/19 04/13/19 04/13/19 15:28 15:28 16:07 WBC RBC Hgb Hct MCV MCH MCHC RDW RDW Differential Plt Count MPV Immature Gran % (Auto) Neut % (Auto) Lymph % (Auto) [place] % (Auto) Eos % (Auto) Baso % (Auto) Absolute Neuts (auto) Absolute Lymphs (auto) Total Counted Differential Comment Sodium Potassium Chloride Carbon Dioxide Anion Gap BUN Creatinine Estim Creat Clear Calc Est GFR (MDRD) Af Amer Est GFR (MDRD) Non-Af BUN/Creatinine Ratio Glucose Calcium Ethyl Alcohol < 3.0 Acetone Level LARGE H POC Glucose > 500 H* - Rhythm Strip Rhythm Strip: Sinus Tach Rate: 139 - Prominent peaked T waves on the monitor - EKG Initial EKG Interpretation: Sinus Tachycardia - Regular rate is 114. Patient has peaked T waves consistent with hyperkalemia. MT interval normal. Cures duration is prolonged. QT interval is normal. - Medical Decision Making Patient's GGT is greater than 500. In light of patient being tachycardic, tachypneic with ketotic odor to his breath disorientation and peaked T waves on his EKG suspect he is in DKA. DKA order set was initiated. He received 2 L of normal saline. To treat his hyperkalemia he will receive 1 amp of calcium chloride, 2 A of bicarb, 5 units of insulin IV push. Suspect his prolonged QRS is secondary to hyperkalemia. Patient received his 2 L of normal saline. Laboratory results are consistent with DKA. Will start on insulin drip and contact hospitalist for admission to the hospital/ICU - Critical Care Time Critical care time (excluding procedures): 30-74 minutes, Discussing w/Patient &/or Family/Medical Science Liaison, Discussing w/Consultants, Arranging Admission or Transfer, Performing Direct Patient Care at Bedside ED Disposition - Plan for ED Patient: Disposition: Acute Care Hospital [facility] Diagnosis: DKA, type 1, Metabolic encephalopathy, ELIZABETH (acute kidney injury), Hyponatremia, Hyperkalemia, Sinus tachycardia by electrocardiogram Referrals: Moni Cintron MD [Primary Care Provider] -
[2019-04-13] MEDS: Sodium Bicarbonate 8.4% 50 ML Syringe 100 MEQ IV (15:49)
[2019-04-13] MEDS: Calcium Chloride 1 GM/10 ML Syringe IV (15:50)
[2019-04-13 16:01] LABS: Absolute Neutrophil Count 23.2 X10^3/uL (2.0-7.7); Basophil# 0.03 X10^3/uL; Basophil% 0.1 % (0-1); Hematocrit 44.2 % (40-54); Hemoglobin 15.1 g/dl (13.0-16.5); Mean Corp Hgb Conc 34.2 g/gl (32-36); Mean Corpuscular Hgb 30.7 pg (27.0-32.0); Mean Corpuscular Volume 89.8 fL (80-94); Mean Platelet Vol. 10.7 fl (6.2-12.0); Monocyte# 3.19 X10^3/uL; Monocyte% 11.5 % (0-10); Neutrophil % 83.4 % (47-70); Platelet Count 372 K/mm3 (150-450); RBC Distribution Width CV 12.3 % (11.6-14.6); Red Blood Count 4.92 M/mm3 (4.6-6.2); White Blood Count 27.8 K/mm3 (4.4-11.0)
[2019-04-13 16:03] LABS: Differential Indicated SCAN CRITERIA MET; POSITIVE COUNT NO; POSITIVE DIFFERENTIAL YES; POSITIVE MORPHOLOGY NO
[2019-04-13 16:09] LABS: Anion Gap 30 (5-15); BUN 29 mg/dL (7-18); BUN/Creat Ratio 16.1 RATIO (10-20); Calcium,Total 8.6 mg/dL (8.5-10.1); Chloride 87 mmol/L (98-107); EST Glomerular Filtration Rate 44 mL/min (>60); Est Glom Filt Rate - Afr Amer 53 mL/min (>60); Estimated Creatinine Clearance 52.62 ml/min; Glucose 691 mg/dL (74-106); Potassium 5.7 mmol/L (3.5-5.1); Sodium Level 123 mmol/L (136-145)
[2019-04-13 16:30] LABS: Alcohol, Blood (Medical)-Serum < 3.0 mg/dL
[2019-04-13 16:31] LABS: Differential Comment SCANNED
[2019-04-13 16:31] LABS: Bedside Glucose > 500 mg/dL (70-110)
--- NOTE | 2019-04-13 17:24 | PCM.HP.STD ---
Problem List (1) DKA, type 1 Status: Acute (2) Metabolic encephalopathy Status: Acute (3) ELIZABETH (acute kidney injury) Status: Acute (4) Hyponatremia Status: Acute (5) Hyperkalemia Status: Acute (6) Nicotine abuse Status: Chronic (7) Diabetes type I Status: Chronic Qualifiers: Diabetes mellitus complication status: with ketoacidosis Diabetes mellitus complication detail: without coma Qualified Code(s): E10.10 - Type 1 diabetes mellitus with ketoacidosis without coma (8) Cardiomyopathy Status: Suspected Qualifiers: (9) CAD (coronary artery disease) Status: Chronic Qualifiers: History of Present Illness Date of Admission: 04/13/19 Chief Complaint: Altered mental status The patient is a 44 year old M with an extensive past medical history as above presenting from home with altered mental status. He lives at home with his parents however his suite is fairly private and so they do not know exactly when symptoms began but they brought him in today because of his altered mental status. He is not alert at the moment and therefore history is limited. Apparently he was diagnosed with type 1 diabetes in college and has since then had multiple episodes of DKA. At one point they stated that he was in ICU and his EF was 10%. They believe that he has been taking his insulin however they also say that he has been drinking a fair amount of alcohol over the last several days prior to admission. In the ER he was found to have a bicarb of 6 and an anion gap of 30 with a creatinine of 1.8. His blood sugar was 691 with a large amount of acetone. Past Medical History Past Medical History (Chronic Problems): Chronic Problems (Last Reviewed 12/10/18 @ 08:24 by Jenifer Germain) Nicotine abuse (Chronic) Thrombocytopenia (Chronic) Diabetes type I (Chronic) History of alcohol abuse (Chronic) CAD (coronary artery disease) (Chronic) Dental caries (Chronic) Medical History: Medical History (Last Reviewed 12/10/18 @ 08:24 by Jenifer Germain) Cardiomyopathy (Suspected) I42.9 CAD (coronary artery disease) (Chronic) I25.10 Acute renal failure N17.9 Alcohol abuse F10.10 Anxiety F41.9 Depression F32.9 Diabetes type 1, controlled E10.9 dx : 08/2001 last exacerbation : dka : 05/13 hypoglycemic episode : never er visit : 05/13 Dilated cardiomyopathy I42.0 Elevated liver enzymes R74.8 H/O sepsis Z86.19 Hyponatremia E87.1 Lactic acidosis E87.2 Left atrial enlargement I51.7 Mycoplasma pneumonia J15.7 NSVT (nonsustained ventricular tachycardia) I47.2 Neuropathy G62.9 Prolonged QT interval R94.31 Seizure disorder G40.909 Steatosis of liver K76.0 Thrombocytopenia D69.6 Allergies zinc Allergy (Intermediate, Verified 04/13/19 15:21) Hives Home Medications: Ambulatory Orders Medication Instructions Recorded Aspirin [Low Dose Aspirin EC] 81 mg PO DAILY 11/14/16 lisinopril 2.5 mg tablet 2.5 mg PO QDAY #90 tab 11/02/17 blood sugar diagnostic strips See Dose Instructions .ROUTE 01/15/18 .MEDSUPPLY #120 ea levetiracetam 500 mg tablet 500 mg PO BID 01/18/18 mirtazapine 15 mg tablet 30 mg PO QHS 01/18/18 folic acid 800 mcg tablet 1 tab PO DAILY 30 Days #30 04/27/18 Acetaminophen [Tylenol Tablet] 650 mg PO Q4H PRN PRN tab 10/03/18 flash glucose scanning reader See Dose Instructions .ROUTE 12/10/18 .MEDSUPPLY #1 ea flash glucose sensor kit See Dose Instructions .ROUTE 12/10/18 .MEDSUPPLY #1 ea insulin lispro (U- 100) 100 See Rx Instructions SC TID ml 12/10/18 unit/mL subcutaneous pen Acamprosate Calcium 2 tab PO BID 04/13/19 Carvedilol 3.125 mg PO BID 04/13/19 Insulin Glargine,Hum.rec.anlog 18 unit SC QDAY 04/13/19 [Basaglar Kwikpen U-100] Surgical History: Surgical History (Last Reviewed 12/10/18 @ 08:24 by Jenifer Germain) Hx of tonsillectomy Z98.890, Z90.89 Surgical History: noncontributory Lives: With Family Smoking Status: Current every day smoker Tobacco Use: Cigarettes Alcohol: Heavy Drugs: None - *Family History Maternal Family History: Family History (Last Reviewed 12/10/18 @ 08:24 by Jenifer Germain) Mother Arthritis Father Diabetes Grandfather Diabetes Grandmother Diabetes History Items: No pertinent history Review of Systems Unable to obtain accurate/complete ROS d/t: Altered mental status VTE Information - Inpt Only VTE Present on Admission: No Patient Problems: Active and Suspected Problems (Last Reviewed 12/10/18 @ 08:24 by Jenifer Germain) DKA, type 1 (Acute) Metabolic encephalopathy (Acute) ELIZABETH (acute kidney injury) (Acute) Hyponatremia (Acute) Hyperkalemia (Acute) Sinus tachycardia by electrocardiogram (Acute) - Physical Exam General: Alert, Confused, Disoriented HEENT: Atraumatic, EOMI, Normocephalic Oral: Dry Mucosa Neck: Supple, No JVD Lungs: Clear to auscultation, Normal air movement, No rhonchi, No wheeze, No rales Cardiovascular: Regular rate, Regular Rhythm, Normal S1, Normal S2, No murmurs Abdomen: Soft, Non Tender, Non-Distended, No Hepato-splenomegaly Extremities: No edema, Capillary Refill Less than 3 Seconds Neurological: Neuro grossly intact, Sensory exam intact to light touch and pain Vital Signs Temp Pulse Resp BP Pulse Ox 97.4 F L 115 H 32 H 139/78 H 99 04/13/19 17:11 04/13/19 17:11 04/13/19 17:11 04/13/19 17:11 04/13/19 17:11 Oxygen Delivery Method Room Air Weight: 170 lb 13.732 oz Body Mass Index (BMI) 23.8 Finger Stick Blood Glucose 563 Intake and Output for Last 24 Hours 04/11/19 04/12/19 04/13/19 23:59 23:59 23:59 Output Total 600 / 600 Balance -600 / -600 Laboratory Tests Past 24 Hrs 04/13/19 04/13/19 04/13/19 15:28 15:28 15:28 WBC 27.8 H RBC 4.92 Hgb 15.1 Hct 44.2 MCV 89.8 MCH 30.7 MCHC 34.2 RDW 12.3 RDW Differential 40.0 Plt Count 372 MPV 10.7 Immature Gran % (Auto) 1.000 H Neut % (Auto) 83.4 H Lymph % (Auto) 4.0 L [place] % (Auto) 11.5 H Eos % (Auto) 0.0 Baso % (Auto) 0.1 Absolute Neuts (auto) 23.2 H Absolute Lymphs (auto) 1.10 Total Counted Not Reportable Differential Comment SCANNED Sodium 123 L Potassium 5.7 H Chloride 87 L Carbon Dioxide 6.0 L* Anion Gap 30 H BUN 29 H Creatinine 1.80 H Estim Creat Clear Calc 52.62 Est GFR (MDRD) Af Amer 53 L Est GFR (MDRD) Non-Af 44 L BUN/Creatinine Ratio 16.1 Glucose 691 H* Calcium 8.6 Ethyl Alcohol Acetone Level LARGE H 04/13/19 04/13/19 15:28 15:28 WBC RBC Hgb Hct MCV MCH MCHC RDW RDW Differential Plt Count MPV Immature Gran % (Auto) Neut % (Auto) Lymph % (Auto) [place] % (Auto) Eos % (Auto) Baso % (Auto) Absolute Neuts (auto) Absolute Lymphs (auto) Total Counted Differential Comment Sodium Pending Potassium Pending Chloride Pending Carbon Dioxide Pending Anion Gap Pending BUN Pending Creatinine Pending Estim Creat Clear Calc Est GFR (MDRD) Af Amer Pending Est GFR (MDRD) Non-Af Pending BUN/Creatinine Ratio Pending Glucose Pending Calcium Pending Ethyl Alcohol < 3.0 Acetone Level POC Glucose 04/13/19 04/13/19 16:07 15:20 POC Glucose > 500 H* > 500 H* Assessment/Plan All Active Problems (Last Reviewed 12/10/18 @ 08:24 by Jenifer Germain) DKA, type 1 (Acute) Metabolic encephalopathy (Acute) ELIZABETH (acute kidney injury) (Acute) Hyponatremia (Acute) Hyperkalemia (Acute) Sinus tachycardia by electrocardiogram (Acute) DKA (diabetic ketoacidoses) (Acute) 1. Acute metabolic encephalopathy secondary to DKA with metabolic acidosis/type 1 diabetes/ELIZABETH/hyperkalemia/hyponatremia/leukocytosis -We will admit to ICU and initiate DKA protocol with insulin drip -Continue with IV fluid boluses and BMP every 4 hours to monitor potassium which was elevated to 5.7 -He is also severely hyponatremic to 123, bicarb of 6, anion gap of 30, creatinine of 1.8 -Baseline creatinine is less than 1 -Continue with insulin drip, and will obtain an ABG on admission to the ICU -Leukocytosis is 27.8 which is likely secondary to hemoconcentration and stress 2. Alcohol abuse -Per the family he has been drinking for the last several days they do not know how much -Continue with IV Ativan 1 mg every 2 hours can increase to 2 mg if needed -If he is able to take p.o. will initiate a Librium taper 3. HTN/HLD/dilated cardiomyopathy which is alcohol induced -When he is taking p.o. can resume his home medications -Initially his EF was 15% however it has improved with decrease in his alcohol intake -His most recent echocardiogram in 2018 had an EF of 53% with normal diastole 4. Seizure disorder -Currently stable -When taking p.o. can restart Keppra twice daily DVT: Lovenox Code Visit Inpatient E&M: 15238 Init Hosp L3
[2019-04-13 17:25] LABS: Bedside Glucose > 500 mg/dL (70-110)
[2019-04-13 17:50] LABS: Bedside Glucose 451 mg/dL (70-110)
[2019-04-13 17:59] LABS: Anion Gap 29 (5-15); BUN 30 mg/dL (7-18); BUN/Creat Ratio 18.4 RATIO (10-20); Calcium,Total 8.4 mg/dL (8.5-10.1); Chloride 97 mmol/L (98-107); Creatinine, Serum 1.63 mg/dL (0.70-1.30); EST Glomerular Filtration Rate 49 mL/min (>60); Est Glom Filt Rate - Afr Amer 60 mL/min (>60); Estimated Creatinine Clearance 62.24 ml/min; Glucose 538 mg/dL (74-106); Potassium 6.2 mmol/L (3.5-5.1); Sodium Level 131 mmol/L (136-145)
[2019-04-13 18:34] LABS: Hemoglobin A1c 9.1 % (4.2-6.3)
[2019-04-13] MEDS: 0.9% Normal Saline 1,000 ML 250 ML IV (18:38)
[2019-04-13 18:51] LABS: Bedside Glucose 425 mg/dL (70-110)
[2019-04-13 19:46] LABS: Allen Test POS; Base Excess -23 mmol/L (-2 to +2); Blood Gas Specimen Type ART; O2 Delivery Device Room Air; PO2 112 mmHG (75-100); SITE L Radial; SO2 97 % (95-99); Time Given 1930; Total Carbon Dioxide 5 mmol/L; pCO2 13.3 mmHg (35-45); pH 7.18 (7.35-7.45)
[2019-04-13] MEDS: 0.9% Normal Saline 1,000 ML 999 ML IV ×2 (19:51→19:53)
[2019-04-13] MEDS: Sodium Bicarbonate 8.4% 50 ML Syringe 50 MEQ IV ×2 (19:52→20:07)
[2019-04-13 20:21] LABS: Bedside Glucose 421 mg/dL (70-110)
--- NOTE | 2019-04-13 20:41 | CPS ---
Critical values of Ph 7.18 and PCO2 13.[address] Gaitan at 194
[2019-04-13 21:41] LABS: Bedside Glucose 382 mg/dL (70-110)
[2019-04-13 21:52] LABS: Anion Gap 24 (5-15); BUN 25 mg/dL (7-18); Calcium,Total 7.8 mg/dL (8.5-10.1); Chloride 102 mmol/L (98-107); Creatinine, Serum 1.39 mg/dL (0.70-1.30); EST Glomerular Filtration Rate 59 mL/min (>60); Est Glom Filt Rate - Afr Amer 72 mL/min (>60); Estimated Creatinine Clearance 72.69 ml/min; Glucose 363 mg/dL (74-106); Potassium 4.4 mmol/L (3.5-5.1); Sodium Level 136 mmol/L (136-145)
[2019-04-13 22:15] LABS: Bedside Glucose 330 mg/dL (70-110)
[2019-04-13] MEDS: chlordiazePOXIDE 25 MG Capsule PO (23:09)
[2019-04-13 23:15] LABS: Bedside Glucose 324 mg/dL (70-110)
[2019-04-14] VITALS (25 sets, daily range): BP systolic 96–120; BP diastolic 60–89; PULSE 85–99; RESP 14–118; TEMP 36.3–36.7; O2SAT 92–100
[2019-04-14 00:11] LABS: Bedside Glucose 302 mg/dL (70-110)
[2019-04-14] MEDS: 0.9% Normal Saline 1,000 ML 250 ML IV (01:28)
[2019-04-14 01:31] LABS: Bedside Glucose 280 mg/dL (70-110)
[2019-04-14 02:31] LABS: Bedside Glucose 276 mg/dL (70-110)
--- NOTE | 2019-04-14 02:43 | NURSING ---
this RN called lab about 0120 BMP results. radiologic technology teacher stated the labs are completed and faxed the results to this RN. BMP results placed in paper chart. BMP results for 0120 are not showing in [facility] on the inpatient side; verified with 2RNs.
[2019-04-14 02:55] LABS: Anion Gap 20 (5-15); BUN 23 mg/dL (7-18); BUN/Creat Ratio 16.9 RATIO (10-20); Calcium,Total 7.3 mg/dL (8.5-10.1); Chloride 106 mmol/L (98-107); Creatinine, Serum 1.36 mg/dL (0.70-1.30); EST Glomerular Filtration Rate 61 mL/min (>60); Est Glom Filt Rate - Afr Amer 74 mL/min (>60); Glucose 276 mg/dL (74-106); Potassium 4.1 mmol/L (3.5-5.1); Sodium Level 138 mmol/L (136-145)
[2019-04-14 03:16] LABS: Bedside Glucose 268 mg/dL (70-110)
[2019-04-14 04:16] LABS: Bedside Glucose 235 mg/dL (70-110)
[2019-04-14 05:21] LABS: Bedside Glucose 222 mg/dL (70-110)
[2019-04-14 05:43] LABS: Absolute Lymphocyte Count 1.29 X10^3/ul (0.83-4.51); Absolute Neutrophil Count 17.2 X10^3/uL (2.0-7.7); Basophil# 0.01 X10^3/uL; Basophil% 0.1 % (0-1); Hematocrit 35.8 % (40-54); Hemoglobin 12.8 g/dl (13.0-16.5); Lymphocyte # 1.29 X10^3/ul (4.0); Lymphocyte % 6.5 % (19-41); Mean Corp Hgb Conc 35.8 g/gl (32-36); Mean Corpuscular Hgb 31.3 pg (27.0-32.0); Mean Corpuscular Volume 87.5 fL (80-94); Mean Platelet Vol. 10.1 fl (6.2-12.0); Neutrophil # 17.21 X10^3/uL (2.7-7.7); Platelet Count 272 K/mm3 (150-450); RBC Distribution Width CV 12.1 % (11.6-14.6); RBC Distribution Width SD 37.9 fl (35.1-43.9); Red Blood Count 4.09 M/mm3 (4.6-6.2)
[2019-04-14 05:47] LABS: Anion Gap 16 (5-15); BUN 22 mg/dL (7-18); BUN/Creat Ratio 15.4 RATIO (10-20); Calcium,Total 7.7 mg/dL (8.5-10.1); Chloride 108 mmol/L (98-107); Creatinine, Serum 1.43 mg/dL (0.70-1.30); EST Glomerular Filtration Rate 57 mL/min (>60); Est Glom Filt Rate - Afr Amer 69 mL/min (>60); Estimated Creatinine Clearance 73.11 ml/min; Glucose 222 mg/dL (74-106); Sodium Level 140 mmol/L (136-145)
[2019-04-14 05:48] LABS: POSITIVE COUNT NO; POSITIVE DIFFERENTIAL NO; POSITIVE MORPHOLOGY NO
[2019-04-14 05:58] LABS: Magnesium 1.9 mg/dL (1.6-2.6)
[2019-04-14] MEDS: chlordiazePOXIDE 25 MG Capsule PO ×3 (05:58→20:06)
[2019-04-14] MEDS: Dext 5%-0.45% NS 1,000 ML 150 ML IV (06:18)
[2019-04-14 06:21] LABS: Phosphorus 0.9 mg/dL (2.5-4.9)
[2019-04-14 06:25] LABS: Bedside Glucose 204 mg/dL (70-110)
--- NOTE | 2019-04-14 07:01 | NURSING ---
initiated KPhos IV infusion per electrolyte replacement order
[2019-04-14 07:15] LABS: Bedside Glucose 244 mg/dL (70-110)
[2019-04-14 08:06] LABS: Bedside Glucose 216 mg/dL (70-110)
[2019-04-14 09:01] LABS: Bedside Glucose 225 mg/dL (70-110)
--- NOTE | 2019-04-14 09:17 | CPS ---
Venous blood gas obtained 04/13/19 at 16:00 critical values read to Dr. Saucedo
[2019-04-14 10:05] LABS: Bedside Glucose 206 mg/dL (70-110)
--- NOTE | 2019-04-14 10:18 | PN_ITS ---
Patient Problems: Active and Suspected Problems (Last Reviewed 12/10/18 @ 08:24 by Jenifer Germain) DKA, type 1 (Acute) Metabolic encephalopathy (Acute) ELIZABETH (acute kidney injury) (Acute) Hyponatremia (Acute) Hyperkalemia (Acute) Sinus tachycardia by electrocardiogram (Acute) Subjective: Much more alert today and coherent though he is still slow in his speech and in his responses. Vitals/I&O's: Vital Signs Temp Pulse Resp BP Pulse Ox 97.9 F 93 22 H 111/76 92 04/14/19 08:00 04/14/19 09:00 04/14/19 09:00 04/14/19 09:00 04/14/19 09:00 Oxygen Delivery Method Room Air Weight: 171 lb 1.259 oz Body Mass Index (BMI) 22.4 Finger Stick Blood Glucose 225 Intake and Output for Last 24 Hours 04/12/19 04/13/19 04/14/19 23:59 23:59 23:59 Intake Total 3392 / 3392 Output Total 600 / 600 1200 / 1200 Balance -600 / -600 2192 / 2192 General: Alert, Oriented x3, Cooperative, No apparent distress, - - Slow and hesitant and his speech HEENT: Atraumatic, PERRLA, EOMI, Normocephalic Oral: Dry Mucosa Neck: Supple, No JVD Lungs: Clear to auscultation, Normal air movement, No rhonchi, No wheeze, No rales Cardiovascular: Regular rate, Regular Rhythm, Normal S1, Normal S2 Abdomen: Soft, Non Tender, Non-Distended, No Hepato-splenomegaly Extremities: No edema, Capillary Refill Less than 3 Seconds Skin: No rashes, No breakdown Neurological: Neuro grossly intact, Sensory exam intact to light touch and pain Psych/Mental Status: Normal Affect, Appropriate Laboratory Results 04/13/19 01:20: Sodium Cancelled, Potassium Cancelled, Chloride Cancelled, Carbon Dioxide Cancelled, Anion Gap Cancelled, BUN Cancelled, Creatinine Cancelled, Estim Creat Clear Calc Cancelled, Est GFR (MDRD) Af Amer Cancelled, Est GFR (MDRD) Non-Af Cancelled, BUN/Creatinine Ratio Cancelled, Glucose Cancelled, Calcium Cancelled 04/13/19 15:20: POC Glucose > 500 H* 04/13/19 15:28: WBC 27.8 H, RBC 4.92, Hgb 15.1, Hct 44.2, MCV 89.8, MCH 30.7, MCHC 34.2, RDW 12.3, RDW Differential 40.0, Plt Count 372, MPV 10.7, Immature Gran % (Auto) 1.000 H, Neut % (Auto) 83.4 H, Lymph % (Auto) 4.0 L, [place] % (Auto) 11.5 H, Eos % (Auto) 0.0, Baso % (Auto) 0.1, Absolute Neuts (auto) 23.2 H, Absolute Lymphs (auto) 1.10, Total Counted Not Reportable, Differential Comment SCANNED 04/13/19 15:28: Sodium 123 L, Potassium 5.7 H, Chloride 87 L, Carbon Dioxide 6.0 L*, Anion Gap 30 H, BUN 29 H, Creatinine 1.80 H, Estim Creat Clear Calc 52.62, Est GFR (MDRD) Af Amer 53 L, Est GFR (MDRD) Non-Af 44 L, BUN/Creatinine Ratio 16.1, Glucose 691 H*, Calcium 8.6 04/13/19 15:28: Acetone Level LARGE H 04/13/19 15:28: Ethyl Alcohol < 3.0 04/13/19 15:28: Hemoglobin A1c 9.1 H 04/13/19 16:07: POC Glucose > 500 H* 04/13/19 16:56: POC Glucose > 500 H* 04/13/19 17:31: Sodium 131 L, Potassium 6.2 H*, Chloride 97 L, Carbon Dioxide 5.0 L*, Anion Gap 29 H, BUN 30 H, Creatinine 1.63 H, Estim Creat Clear Calc 62.24, Est GFR (MDRD) Af Amer 60, Est GFR (MDRD) Non-Af 49 L, BUN/Creatinine Ra nely 18.4, Glucose 538 H*, Calcium 8.4 L 04/13/19 17:46: POC Glucose 451 H* 04/13/19 18:46: POC Glucose 425 H 04/13/19 19:34: Specimen Type ART, Sample Site L Radial, pH 7.18 L*, Bicarbonate Actual 5.0 L, POC Total CO2 5, Base Excess -23 L, O2 Saturation 97, ABG pCO2 13.3 L*, ABG pO2 112 H, Anurag Test POS, O2 Delivery Device Room Air, Blood Gas Notified Whom REED GEORGE, Blood Gas Notified Time 19304/13/19 20:05: POC Glucose 421 H 04/13/19 21:05: POC Glucose 382 H 04/13/19 21:10: Sodium 136, Potassium 4.4, Chloride 102, Carbon Dioxide 10.0 L, Anion Gap 24 H, BUN 25 H, Creatinine 1.39 H, Estim Creat Clear Calc 72.69, Est GFR (MDRD) Af Amer 72, Est GFR (MDRD) Non-Af 59 L, BUN/Creatinine Ratio 18.0, Glucose 363 H, Calcium 7.8 L 04/13/19 22:11: POC Glucose 330 H 04/13/19 23:12: POC Glucose 324 H 04/14/19 00:04: POC Glucose 302 H 04/14/19 01:17: POC Glucose 280 H 04/14/19 01:20: Sodium 138, Potassium 4.1, Chloride 106, Carbon Dioxide 12.0 L, Anion Gap 20 H, BUN 23 H, Creatinine 1.36 H, Estim Creat Clear Calc 74.30, Est GFR (MDRD) Af Amer 74, Est GFR (MDRD) Non-Af 61, BUN/Creatinine Ratio 16.9, Glucose 276 H, Calcium 7.3 L 04/14/19 02:26: POC Glucose 276 H 04/14/19 03:10: POC Glucose 268 H 04/14/19 04:09: POC Glucose 235 H 04/14/19 05:10: WBC 20.0 H, RBC 4.09 L, Hgb 12.8 L, Hct 35.8 L, MCV 87.5, MCH 31.3, MCHC 35.8, RDW 12.1, RDW Differential 37.9, Plt Count 272, MPV 10.1, Immature Gran % (Auto) 0.400, Neut % (Auto) 86.0 H, Lymph % (Auto) 6.5 L, [place] % (Auto) 7.0, Eos % (Auto) 0.0, Baso % (Auto) 0.1, Absolute Neuts (auto) 17.2 H, Absolute Lymphs (auto) 1.29, Total Counted Not Reportable 04/14/19 05:10: Sodium 140, Potassium 4.0, Chloride 108 H, Carbon Dioxide 16.0 L , Anion Gap 16 H, BUN 22 H, Creatinine 1.43 H, Estim Creat Clear Calc 73.11, Est GFR (MDRD) Af Amer 69, Est GFR (MDRD) Non-Af 57 L, BUN/Creatinine Ratio 15.4, Glucose 222 H, Calcium 7.7 L 04/14/19 05:10: POC Glucose 222 H 04/14/19 05:10: Magnesium 1.9 04/14/19 05:10: Phosphorus 0.9 L* 04/14/19 06:15: POC Glucose 204 H 04/14/19 07:05: POC Glucose 244 H 04/14/19 07:58: POC Glucose 216 H 04/14/19 08:58: POC Glucose 225 H 04/14/19 10:00: Sodium Pending, Potassium Pending, Chloride Pending, Carbon Dioxide Pending, Anion Gap Pending, BUN Pending, Creatinine Pending, Est GFR (MDRD) Af Amer Pending, Est GFR (MDRD) Non-Af Pending, BUN/Creatinine Ratio Pending, Glucose Pending, Calcium Pending 04/14/19 10:02: POC Glucose 206 H Current Medications Chlordiazepoxide (Librium) 50 mg PO Q6H OZZIE; Taper Stop: 04/16/19 19:14 Last Admin: 04/14/19 05:58 Dose: 50 mg Dextrose (D50w Syringe) 0 gm IV X1 PRN; Protocol PRN Reason: Protocol Enoxaparin Sodium (Lovenox) 40 mg SC DAILY@1000 OZZIE Glucagon () 1 mg IM .X1 PRN PRN Reason: Hypoglycemia Insulin Human Lispro 100 unit/ (Sodium Chloride) 100 mls @ 7.5 mls/hr IV .[id number] OZZIE; Protocol Last Admin: 04/13/19 19:52 Dose: Not Given Thiamine HCl 200 mg/ Sodium (Chloride) 52 mls @ 200 mls/hr IV DAILY OZZIE Last Admin: 04/13/19 20:07 Dose: 200 mls/hr Dextrose/Sodium Chloride () 1,000 mls @ 150 mls/hr IV .[id number] OZZIE Last Admin: 04/14/19 06:18 Dose: 150 mls/hr Lorazepam (Ativan) 1 mg IV Q2H PRN PRN PRN Reason: Severe Anxiety Lorazepam (Ativan) 2 mg IV X1 PRN PRN Reason: Seizure Sodium Chloride () 5 - 15 ml IV UD PRN PRN Reason: SALINE FLUSH Medical Necessity - Tobacco Use Smoking Status: Current every day smoker Tobacco Use: Cigarettes Assessment/Plan All Active Problems (Last Reviewed 12/10/18 @ 08:24 by Jenifer Germain) DKA, type 1 (Acute) Metabolic encephalopathy (Acute) ELIZABETH (acute kidney injury) (Acute) Hyponatremia (Acute) Hyperkalemia (Acute) Sinus tachycardia by electrocardiogram (Acute) DKA (diabetic ketoacidoses) (Acute) 1. Acute metabolic encephalopathy secondary to DKA with metabolic acidosis/type 1 diabetes/ELIZABETH/hyperkalemia/hyponatremia/leukocytosis/hypophosphatemia -Continue with the DKA protocol and the insulin drip -IV fluids with D5 normal and potassium, continue BMPs until the gap is closed. His last potassium was 4.0 and his bicarb was 16 -He was also severely hyponatremic to 123, bicarb of 6, anion gap of 30, creatinine of 1.8, his sodium has resolved and his bicarb is now 16 his anion gap is also 16 and his creatinine is 1.43, currently replacing his phosphorus -Baseline creatinine is less than 1 -Continue with insulin drip, pH on admission was 7.18 with a PCO2 of 13.3 -Leukocytosis is 27.8 on admission down to 20 today which is likely secondary to hemoconcentration and stress 2. Alcohol abuse -Per the family he has been drinking for the last several days they do not know how much -Continue with IV Ativan 1 mg every 2 hours can increase to 2 mg if needed -If he is able to take p.o. will initiate a Librium taper 3. HTN/HLD/dilated cardiomyopathy which is alcohol induced -When he is taking p.o. can resume his home medications -Initially his EF was 15% however it has improved with decrease in his alcohol intake -His most recent echocardiogram in 2018 had an EF of 53% with normal diastole 4. Seizure disorder -Currently stable -When taking p.o. can restart Keppra twice daily DVT: Lovenox Code Visit Inpatient E&M: 71673 Subs Hosp L2
[2019-04-14 10:24] LABS: Anion Gap 13 (5-15); BUN 19 mg/dL (7-18); BUN/Creat Ratio 14.4 RATIO (10-20); Calcium,Total 7.6 mg/dL (8.5-10.1); Chloride 108 mmol/L (98-107); Creatinine, Serum 1.32 mg/dL (0.70-1.30); EST Glomerular Filtration Rate 63 mL/min (>60); Est Glom Filt Rate - Afr Amer 76 mL/min (>60); Glucose 216 mg/dL (74-106); Sodium Level 139 mmol/L (136-145)
[2019-04-14 11:06] LABS: Bedside Glucose 194 mg/dL (70-110)
[2019-04-14 12:01] LABS: Bedside Glucose 188 mg/dL (70-110)
[2019-04-14] MEDS: Carvedilol 3.125 MG TABLET PO ×2 (12:01→22:23)
[2019-04-14] MEDS: levETIRAcetam 500 MG Tablet PO ×2 (12:01→22:23)
[2019-04-14] MEDS: Enoxaparin 40 MG/0.4 ML Syringe SC (12:02)
[2019-04-14] MEDS: Aspirin E.C. 81 MG Tablet PO (12:02)
[2019-04-14] MEDS: 0.9% Normal Saline 1,000 ML 150 ML IV ×2 (12:02→20:12)
[2019-04-14] MEDS: Insulin Lispro 100 UNIT/ML INSULN.PEN SC ×2 (16:47→22:26)
[2019-04-14] MEDS: 0.9% NaCl Peripheral Flush Adult/Peds IV (16:48)
[2019-04-14 16:56] LABS: Bedside Glucose 246 mg/dL (70-110)
[2019-04-14 17:01] LABS: Anion Gap 14 (5-15); BUN 17 mg/dL (7-18); BUN/Creat Ratio 13.1 RATIO (10-20); Calcium,Total 7.4 mg/dL (8.5-10.1); Chloride 105 mmol/L (98-107); EST Glomerular Filtration Rate 64 mL/min (>60); Est Glom Filt Rate - Afr Amer 77 mL/min (>60); Estimated Creatinine Clearance 80.42 ml/min; Glucose 298 mg/dL (74-106); Sodium Level 136 mmol/L (136-145)
[2019-04-14 18:08] LABS: Blood Gas Specimen Type VEN
[2019-04-14 18:09] LABS: Time Given 1556
[2019-04-14 18:10] LABS: VBG BASE EXCESS -25 mmol/L (-1.0-3.5); VBG Bicarbonate 4 mmol/L (22-26); VBG PO2 111 mmHg (25-40); VBG SO2 97 % (50-70); VBG pCO2 9.8 mmHg (41-51); VBG pH 7.17 (7.32-7.42)
[2019-04-14 22:35] LABS: Bedside Glucose 310 mg/dL (70-110)
[2019-04-15] VITALS (17 sets, daily range): BP systolic 112–129; BP diastolic 72–80; PULSE 78–88; RESP 14–27; TEMP 36.3–37.3; O2SAT 95–100
[2019-04-15] MEDS: 0.9% Normal Saline 1,000 ML 150 ML IV ×3 (01:28→20:19)
[2019-04-15] MEDS: chlordiazePOXIDE 25 MG Capsule PO ×2 (03:19→10:52)
[2019-04-15 04:55] LABS: Absolute Lymphocyte Count 2.72 X10^3/ul (0.83-4.51); Absolute Neutrophil Count 9.5 X10^3/uL (2.0-7.7); Eosinophil# 0.05 X10^3/uL; Eosinophils% 0.4 % (0-5); Hematocrit 32.1 % (40-54); Hemoglobin 11.4 g/dl (13.0-16.5); Lymphocyte # 2.72 X10^3/ul (4.0); Mean Corp Hgb Conc 35.5 g/gl (32-36); Mean Corpuscular Hgb 31.5 pg (27.0-32.0); Mean Corpuscular Volume 88.7 fL (80-94); Mean Platelet Vol. 8.9 fl (6.2-12.0); Monocyte# 0.64 X10^3/uL; Monocyte% 4.9 % (0-10); Neutrophil # 9.54 X10^3/uL (2.7-7.7); Neutrophil % 73.5 % (47-70); Platelet Count 186 K/mm3 (150-450); RBC Distribution Width CV 12.7 % (11.6-14.6); RBC Distribution Width SD 41.4 fl (35.1-43.9); Red Blood Count 3.62 M/mm3 (4.6-6.2)
[2019-04-15 05:16] LABS: Phosphorus 0.8 mg/dL (2.5-4.9)
[2019-04-15 05:31] LABS: POSITIVE COUNT NO; POSITIVE DIFFERENTIAL NO; POSITIVE MORPHOLOGY NO
[2019-04-15 06:19] LABS: SITE OTHER
[2019-04-15 06:20] LABS: O2 Delivery Device Room Air
[2019-04-15 06:24] LABS: VBG Oxygen Content < 5 mmol/L (23-33)
[2019-04-15 06:45] LABS: Bedside Glucose 318 mg/dL (70-110)
--- NOTE | 2019-04-15 06:51 | PCM.PN.HOSP ---
Patient Problems: Active and Suspected Problems (Last Reviewed 12/10/18 @ 08:24 by Jenifer Germain) DKA, type 1 (Acute) Metabolic encephalopathy (Acute) ELIZABETH (acute kidney injury) (Acute) Hyponatremia (Acute) Hyperkalemia (Acute) Sinus tachycardia by electrocardiogram (Acute) Subjective: Patient with no acute events overnight per self and per nursing report. Patient Sewall scores have been improving and he denies any marketed tremors or hallucinations. Anion gap has been closed x2 and patient transition to SC insulin therapy. Discussed sobriety at length and patient is interested in completing taper however declines any assistance for rehab programs outpatient. He does state that he is fatigued and a bit loopy but otherwise improved. Patient denies fevers, chills, nausea, emesis, abdominal pain, chest pain or dyspnea. Objective: Physical Examination: General: awake, alert, oriented x 3 and cooperative, seated upright in the ICU bedside chair, disheveled appearance, no acute distress. Skin: normal color, turgor, no icterus, cyanosis. HEENT: AT/NC, EOMI, PERRLA, moderately dry MM. Lungs: CTA bilaterally, moderate effort, mild decrease BL bases, no rales, ronchi or wheezing. Heart: Regular rate and rhythm; no gallop, rub audible. Abdomen: soft, thin habitus, NTTP, ND, normal BS, + HM. Extremities: no cyanosis, clubbing, or edema. Neurological: patient awake, alert, oriented x 3; cognitive function intact; pupils equally reactive to light and accomodation; cranial nerves II-XII grossly normal, moving all 4 extremities, no focal deficits, strength moderately globally decreased secondary to acute presentation, improving. Psychiatric: affect appears moderately flat, no acute evidence of depressive or anxiety feelings. Vitals/I&O's: Vital Signs Temp Pulse Resp BP Pulse Ox 97.8 F 82 22 H 127/73 H 100 04/15/19 04:00 04/15/19 06:00 04/15/19 06:00 04/15/19 06:00 04/15/19 06:00 Oxygen Delivery Method Room Air Weight: 178 lb 2.136 oz Body Mass Index (BMI) 22.4 Finger Stick Blood Glucose 194 Intake and Output for Last 24 Hours 05/18/19 05/19/19 05/20/19 23:59 23:59 23:59 Intake Total 5956 / 5956 2287 / 2287 Output Total 600 / 600 2049 / 2049 1750 / 1750 Balance -600 / -600 3906 / 3906 537 / 537 Laboratory Results 04/13/19 15:55: Specimen Type JAKY, Sample Site OTHER, VBG pH 7.17 L*, VBG pO2 111 H, VBG O2 Sat (Calc) 97 H, VBG O2 Content < 5 L, VBG Base Excess -25 L, POC Mix VBG pCO2 Pt Tmp 9.8 L*, O2 Delivery Device Room Air, Blood Gas Notified Whom ED , Blood Gas Notified Time 1556 04/14/19 07:05: POC Glucose 244 H 04/14/19 07:58: POC Glucose 216 H 04/14/19 08:58: POC Glucose 225 H 04/14/19 10:00: Sodium 139, Potassium 4.0, Chloride 108 H, Carbon Dioxide 18.0 L, Anion Gap 13, BUN 19 H, Creatinine 1.32 H, Estim Creat Clear Calc 79.20, Est GFR (MDRD) Af Amer 76, Est GFR (MDRD) Non-Af 63, BUN/Creatinine Ratio 14.4, Glucose 216 H, Calcium 7.6 L 04/14/19 10:02: POC Glucose 206 H 04/14/19 11:00: POC Glucose 194 H 04/14/19 11:54: POC Glucose 188 H 04/14/19 16:41: POC Glucose 246 H 04/14/19 16:45: Sodium 136, Potassium 4.0, Chloride 105, Carbon Dioxide 17.0 L, Anion Gap 14, BUN 17, Creatinine 1.30, Estim Creat Clear Calc 80.42, Est GFR (MDRD) Af Amer 77, Est GFR (MDRD) Non-Af 64, BUN/Creatinine Ratio 13.1, Glucose 298 H, Calcium 7.4 L 04/14/19 22:25: POC Glucose 310 H 04/15/19 04:45: WBC 13.0 H, RBC 3.62 L, Hgb 11.4 L, Hct 32.1 L, MCV 88.7, MCH 31.5, MCHC 35.5, RDW 12.7, RDW Differential 41.4, Plt Count 186, MPV 8.9, Immature Gran % (Auto) 0.200, Neut % (Auto) 73.5 H, Lymph % (Auto) 21.0, Hawkins % (Auto) 4.9, Eos % (Auto) 0.4, Baso % (Auto) 0.0, Absolute Neuts (auto) 9.5 H, Absolute Lymphs (auto) 2.72, Total Counted Not Reportable 04/15/19 04:45: Phosphorus 0.8 L* 04/15/19 06:42: POC Glucose 318 H Current Medications Aspirin (Ecotrin) 81 mg PO DAILYCM [facility] Last Admin: 04/14/19 12:02 Dose: 81 mg Carvedilol (Coreg) 3.125 mg PO BID [facility] Last Admin: 04/14/19 22:23 Dose: 3.125 mg Chlordiazepoxide (Librium) 50 mg PO Q8H [facility]; Taper Stop: 04/16/19 19:14 Last Admin: 04/15/19 03:19 Dose: 50 mg Dextrose (D50w Syringe) 0 gm IV X1 PRN; Protocol PRN Reason: Protocol Enoxaparin Sodium (Lovenox) 40 mg SC DAILY@1000 OZZIE Last Admin: 04/14/19 12:02 Dose: 40 mg Glucagon () 1 mg IM .X1 PRN PRN Reason: Hypoglycemia Thiamine HCl 200 mg/ Sodium (Chloride) 52 mls @ 200 mls/hr IV DAILY [facility] Last Admin: 04/14/19 10:58 Dose: 200 mls/hr Sodium Chloride () 1,000 mls @ 150 mls/hr IV .Q6H40M [facility] Last Admin: 04/15/19 06:25 Dose: Not Given Sodium Phosphate 30 mm/ Sodium (Chloride) 260 mls @ 62.5 mls/hr IV X1 ONE Stop: 04/15/19 10:54 Insulin Glargine (Lantus (Bkc)) 18 units SC DAILY [facility] Last Admin: 04/14/19 12:02 Dose: 18 u Insulin Human Lispro (Humalog Kwikpen (Bkc)) 0 unit SC ACHS [facility]; Protocol Last Admin: 04/14/19 22:26 Dose: 6 u Levetiracetam (Keppra Tablet) 500 mg PO BID [facility] Last Admin: 04/14/19 22:23 Dose: 500 mg Lorazepam (Ativan) 1 mg IV Q2H PRN PRN PRN Reason: Severe Anxiety Lorazepam (Ativan) 2 mg IV X1 PRN PRN Reason: Seizure Potassium Phos/Sodium Phos (Neutra-Phos Packet) 1 packet PO BID OZZIE Stop: 04/15/19 10:01 Sodium Chloride () 5 - 15 ml IV UD PRN PRN Reason: SALINE FLUSH Last Admin: 04/14/19 16:48 Dose: 10 ml Medical Necessity - Tobacco Use Smoking Status: Current every day smoker Tobacco Use: Cigarettes Assessment/Plan All Active Problems (Last Reviewed 12/10/18 @ 08:24 by Jenifer Germain) DKA, type 1 (Acute) Metabolic encephalopathy (Acute) ELIZABETH (acute kidney injury) (Acute) Hyponatremia (Acute) Hyperkalemia (Acute) Sinus tachycardia by electrocardiogram (Acute) DKA (diabetic ketoacidoses) (Acute) The patient is a 44 y/o M w/ PMHx: Diabetes mellitus type I, CAD, Dilated Cardiomyopathy, Tobacco use, Seizure disorder, EtOH Abuse who presents to the [facility] ED on 04/13/19 with altered mental status with increased EtOH intake recently per family report. (1) Acute Encephalopathy (metabolic) secondary to Acute DKA w/ Diabetes mellitus type I: Upon admission notable electrolyte disturbances, aggressively hydrated, insulin drip initiated and initially admitted to the ICU. Anion gap closed x2, transition to subcu insulin regimen with insulin sliding scale and diet initiated. Given patient clinical improvement and transition to SC insulin will transfer to medical surgical floor from ICU status, continue home SC regimen when w/ accu checks w/ ISS, nutrition consultation for education and teaching. Encouraged diet and insulin regimen compliance. (2) Acute EtOH Withdrawal: Complicated admission, severe electrolyte disturbances, continue correction, continue on [facility] service protocol with taper course of librium, as needed Catapres, Bentyl, Vistaril, IV fluids, IV antiemetics, Tylenol as needed for pain. [facility] consultation for assistance for transition to next level of rehabilitation care. Maintain on CIWA protocol. Maintain on thiamine, folic acid, MVI. (3) Acute kidney injury: Secondary to #1. Admission BUN/Cr 22/1.43, prior baseline creatinine noted to be normal, 04/14/19 BUN/Cr 17/1.30. Will continue to hydrate, initially held nephrotoxic medications, will add back ACEI given improvement. (4) Dilated Cardiomyopathy, CAD: Continue home aspirin, Coreg, lisinopril, not on statin therapy with pending FLP. (5) Hypertension: Continue home regimen including coreg, lisinopril given improved renal function, PRN hydralazine. (6) Hyperlipidemia: Not on regimen, FLP pending. (7) Seizure Disorder: Continue home keppra regimen. (8) Tobacco Abuse: Encouraged cessation, inpatient consultation per RT, NR if desired. (9) GERD: Famotidine. (10) DVT Prophylaxis: SCDs, Lovenox. Code Visit Inpatient E&M: 75563 Subs Hosp L3
--- NOTE | 2019-04-15 06:59 | PN_ITS ---
Patient Problems: Active and Suspected Problems (Last Reviewed 12/10/18 @ 08:24 by Jenifer Germain) DKA, type 1 (Acute) Metabolic encephalopathy (Acute) ELIZABETH (acute kidney injury) (Acute) Hyponatremia (Acute) Hyperkalemia (Acute) Sinus tachycardia by electrocardiogram (Acute) Subjective: Patient with no acute events overnight per self and per nursing report. Patient Sewall scores have been improving and he denies any marketed tremors or hallucinations. Anion gap has been closed x2 and patient transition to SC insulin therapy. Discussed sobriety at length and patient is interested in completing taper however declines any assistance for rehab programs outpatient. He does state that he is fatigued and a bit loopy but otherwise improved. Patient denies fevers, chills, nausea, emesis, abdominal pain, chest pain or dyspnea. Objective: Physical Examination: General: awake, alert, oriented x 3 and cooperative, seated upright in the ICU bedside chair, disheveled appearance, no acute distress. Skin: normal color, turgor, no icterus, cyanosis. HEENT: AT/NC, EOMI, PERRLA, moderately dry MM. Lungs: CTA bilaterally, moderate effort, mild decrease BL bases, no rales, ronchi or wheezing. Heart: Regular rate and rhythm; no gallop, rub audible. Abdomen: soft, thin habitus, NTTP, ND, normal BS, + HM. Extremities: no cyanosis, clubbing, or edema. Neurological: patient awake, alert, oriented x 3; cognitive function intact; pupils equally reactive to light and accomodation; cranial nerves II-XII grossly normal, moving all 4 extremities, no focal deficits, strength moderately globally decreased secondary to acute presentation, improving. Psychiatric: affect appears moderately flat, no acute evidence of depressive or anxiety feelings. Vitals/I&O's: Vital Signs Temp Pulse Resp BP Pulse Ox 97.8 F 82 22 H 127/73 H 100 04/15/19 04:00 04/15/19 06:00 04/15/19 06:00 04/15/19 06:00 04/15/19 06:00 Oxygen Delivery Method Room Air Weight: 178 lb 2.136 oz Body Mass Index (BMI) 22.4 Finger Stick Blood Glucose 194 Intake and Output for Last 24 Hours 05/18/19 05/19/19 05/20/19 23:59 23:59 23:59 Intake Total 5956 / 5956 2287 / 2287 Output Total 600 / 600 2049 / 2049 1750 / 1750 Balance -600 / -600 3906 / 3906 537 / 537 Laboratory Results 04/13/19 15:55: Specimen Type JAKY, Sample Site OTHER, VBG pH 7.17 L*, VBG pO2 111 H, VBG O2 Sat (Calc) 97 H, VBG O2 Content < 5 L, VBG Base Excess -25 L, POC Mix VBG pCO2 Pt Tmp 9.8 L*, O2 Delivery Device Room Air, Blood Gas Notified Whom ED , Blood Gas Notified Time 1556 04/14/19 07:05: POC Glucose 244 H 04/14/19 07:58: POC Glucose 216 H 04/14/19 08:58: POC Glucose 225 H 04/14/19 10:00: Sodium 139, Potassium 4.0, Chloride 108 H, Carbon Dioxide 18.0 L , Anion Gap 13, BUN 19 H, Creatinine 1.32 H, Estim Creat Clear Calc 79.20, Est GFR (MDRD) Af Amer 76, Est GFR (MDRD) Non-Af 63, BUN/Creatinine Ratio 14.4, Glucose 216 H, Calcium 7.6 L 04/14/19 10:02: POC Glucose 206 H 04/14/19 11:00: POC Glucose 194 H 04/14/19 11:54: POC Glucose 188 H 04/14/19 16:41: POC Glucose 246 H 04/14/19 16:45: Sodium 136, Potassium 4.0, Chloride 105, Carbon Dioxide 17.0 L, Anion Gap 14, BUN 17, Creatinine 1.30, Estim Creat Clear Calc 80.42, Est GFR (MDRD) Af Amer 77, Est GFR (MDRD) Non-Af 64, BUN/Creatinine Ratio 13.1, Glucose 298 H, Calcium 7.4 L 04/14/19 22:25: POC Glucose 310 H 04/15/19 04:45: WBC 13.0 H, RBC 3.62 L, Hgb 11.4 L, Hct 32.1 L, MCV 88.7, MCH 31.5, MCHC 35.5, RDW 12.7, RDW Differential 41.4, Plt Count 186, MPV 8.9, Immature Gran % (Auto) 0.200, Neut % (Auto) 73.5 H, Lymph % (Auto) 21.0, Harnett % (Auto) 4.9, Eos % (Auto) 0.4, Baso % (Auto) 0.0, Absolute Neuts (auto) 9.5 H, Absolute Lymphs (auto) 2.72, Total Counted Not Reportable 04/15/19 04:45: Phosphorus 0.8 L* 04/15/19 06:42: POC Glucose 318 H Current Medications Aspirin (Ecotrin) 81 mg PO DAILYCM [facility] Last Admin: 04/14/19 12:02 Dose: 81 mg Carvedilol (Coreg) 3.125 mg PO BID [facility] Last Admin: 04/14/19 22:23 Dose: 3.125 mg Chlordiazepoxide (Librium) 50 mg PO Q8H [facility]; Taper Stop: 04/16/19 19:14 Last Admin: 04/15/19 03:19 Dose: 50 mg Dextrose (D50w Syringe) 0 gm IV X1 PRN; Protocol PRN Reason: Protocol Enoxaparin Sodium (Lovenox) 40 mg SC DAILY@1000 OZZIE Last Admin: 04/14/19 12:02 Dose: 40 mg Glucagon () 1 mg IM .X1 PRN PRN Reason: Hypoglycemia Thiamine HCl 200 mg/ Sodium (Chloride) 52 mls @ 200 mls/hr IV DAILY [facility] Last Admin: 04/14/19 10:58 Dose: 200 mls/hr Sodium Chloride () 1,000 mls @ 150 mls/hr IV .Q6H40M [facility] Last Admin: 04/15/19 06:25 Dose: Not Given Sodium Phosphate 30 mm/ Sodium (Chloride) 260 mls @ 62.5 mls/hr IV X1 ONE Stop: 04/15/19 10:54 Insulin Glargine (Lantus (Bkc)) 18 units SC DAILY [facility] Last Admin: 04/14/19 12:02 Dose: 18 u Insulin Human Lispro (Humalog Kwikpen (Bkc)) 0 unit SC ACHS [facility]; Protocol Last Admin: 04/14/19 22:26 Dose: 6 u Levetiracetam (Keppra Tablet) 500 mg PO BID [facility] Last Admin: 04/14/19 22:23 Dose: 500 mg Lorazepam (Ativan) 1 mg IV Q2H PRN PRN PRN Reason: Severe Anxiety Lorazepam (Ativan) 2 mg IV X1 PRN PRN Reason: Seizure Potassium Phos/Sodium Phos (Neutra-Phos Packet) 1 packet PO BID OZZIE Stop: 04/15/19 10:01 Sodium Chloride () 5 - 15 ml IV UD PRN PRN Reason: SALINE FLUSH Last Admin: 04/14/19 16:48 Dose: 10 ml Medical Necessity - Tobacco Use Smoking Status: Current every day smoker Tobacco Use: Cigarettes Assessment/Plan All Active Problems (Last Reviewed 12/10/18 @ 08:24 by Jenifer Germain) DKA, type 1 (Acute) Metabolic encephalopathy (Acute) ELIZABETH (acute kidney injury) (Acute) Hyponatremia (Acute) Hyperkalemia (Acute) Sinus tachycardia by electrocardiogram (Acute) DKA (diabetic ketoacidoses) (Acute) The patient is a 44 y/o M w/ PMHx: Diabetes mellitus type I, CAD, Dilated Cardiomyopathy, Tobacco use, Seizure disorder, EtOH Abuse who presents to the [facility] ED on 04/13/19 with altered mental status with increased EtOH intake recently per family report. (1) Acute Encephalopathy (metabolic) secondary to Acute DKA w/ Diabetes mellitus type I: Upon admission notable electrolyte disturbances, aggressively hydrated, insulin drip initiated and initially admitted to the ICU. Anion gap closed x2, transition to subcu insulin regimen with insulin sliding scale and diet initiated. Given patient clinical improvement and transition to SC insulin will transfer to medical surgical floor from ICU status, continue home SC regimen when w/ accu checks w/ ISS, nutrition consultation for education and teaching. Encouraged diet and insulin regimen compliance. (2) Acute EtOH Withdrawal: Complicated admission, severe electrolyte disturbances, continue correction, continue on [facility] service protocol with taper course of librium, as needed Catapres, Bentyl, Vistaril, IV fluids, IV antiemetics, Tylenol as needed for pain. [facility] consultation for assistance for transition to next level of rehabilitation care. Maintain on CIWA protocol. Maintain on thiamine, folic acid, MVI. (3) Acute kidney injury: Secondary to #1. Admission BUN/Cr 22/1.43, prior baseline creatinine noted to be normal, 04/14/19 BUN/Cr 17/1.30. Will continue to hydrate, initially held nephrotoxic medications, will add back ACEI given improvement. (4) Dilated Cardiomyopathy, CAD: Continue home aspirin, Coreg, lisinopril, not on statin therapy with pending FLP. (5) Hypertension: Continue home regimen including coreg, lisinopril given improved renal function, PRN hydralazine. (6) Hyperlipidemia: Not on regimen, FLP pending. (7) Seizure Disorder: Continue home keppra regimen. (8) Tobacco Abuse: Encouraged cessation, inpatient consultation per RT, NR if desired. (9) GERD: Famotidine. (10) DVT Prophylaxis: SCDs, Lovenox. Code Visit Inpatient E&M: 50725 Subs Hosp L3
--- NOTE | 2019-04-15 07:33 | NURSING ---
report called to MS3 RN
[2019-04-15] MEDS: Insulin Lispro 100 UNIT/ML INSULN.PEN SC ×4 (07:38→22:44)
--- NOTE | 2019-04-15 07:39 | NURSING ---
message left for pts mother, notifeid tx to [phone]
--- NOTE | 2019-04-15 07:40 | NURSING ---
to [id number] per WC, icu staff in attendance
--- NOTE | 2019-04-15 07:49 | NURSING ---
called [facility] office and left message regarding consult for ETOH management
[2019-04-15] MEDS: Famotidine 20 MG Tablet PO ×2 (08:28→22:44)
[2019-04-15] MEDS: Lisinopril 2.5 MG Tablet PO (08:28)
[2019-04-15] MEDS: Folic Acid 1 MG Tablet PO (08:28)
[2019-04-15] MEDS: Thiamine Hydrochloride 100 MG Tablet PO (08:30)
[2019-04-15] MEDS: Aspirin E.C. 81 MG Tablet PO (08:30)
[2019-04-15] MEDS: Multivitamins,Therapeutic Tablet 1 TABLET PO (08:30)
[2019-04-15 08:50] LABS: Hemoglobin A1c 9.4 % (4.2-6.3)
[2019-04-15] MEDS: Na Biphos/Potassium Phosphate PACKET 1 PACKET PO ×2 (10:37→22:44)
[2019-04-15] MEDS: Enoxaparin 40 MG/0.4 ML Syringe SC (10:39)
[2019-04-15] MEDS: levETIRAcetam 500 MG Tablet PO ×2 (10:39→22:43)
[2019-04-15] MEDS: Carvedilol 3.125 MG TABLET PO ×2 (10:39→22:43)
--- NOTE | 2019-04-15 10:39 | [facility] ---
I saw patient this morning to discuss inpatient and outpatient options. Nurse Inderjit in the room at the time of our conversation. Patient stated he is not interested in ceasing alcohol consumption completely but is interested in reducing his intake. Patient states he goes to AA on occasion. Patient is not interested in assistance with inpatient or outpatient placement at this time. I gave patient options for inpatient and outpatient options should patient change his mind. Patient was given our number in case he changes his mind.
[2019-04-15 11:21] LABS: Bedside Glucose 218 mg/dL (70-110)
--- NOTE | 2019-04-15 12:30 | CASEMGMT ---
RN CM Assessment Presentation: DKA, Type 1 diabetes. Intro role of CM and purpose of RN CM assessment to patient in room. Pt is sleepy, but awakens and answers questions appropriately. Demographics, PCP and Pharmacy verified. PCP: Dr. Cintron Specialists: none. 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 RN CM recommended pt f/u with PCP on dc and have referral made to new [facility] test fire worker. [facility] Insurance: [employer] Prescription Benefit: yes. States his medications are covered through [employer]. No difficulty with copays. LNOK: mother Living Arrangements: lives with his mother. Pt states he is independent, no care needs. Transportation: Pt has license, drives, but relies on [employer] transportation. Plan is for using [employer] transportation for f/u appointment. DME: Pt has blood glucose monitoring equipment and supplies. States he checks his blood sugars @ home but is not always compliant with diet. SW: Irena from [employer] spoke with pt re: ETOH abuse. HHC: none Patient DC goals: Home DC PLAN: Home on discharge. Gallito MARTINEZ RN ACM
[2019-04-15 17:30] LABS: Bedside Glucose 210 mg/dL (70-110)
[2019-04-15 22:41] LABS: Bedside Glucose 220 mg/dL (70-110)
[2019-04-15] MEDS: traZODone 50 MG Tablet PO (22:43)
[2019-04-15] MEDS: Mirtazapine 15 MG Tablet 30 MG PO (22:44)
[2019-04-16] VITALS (11 sets, daily range): BP systolic 123–141; BP diastolic 73–83; PULSE 85–94; RESP 16–24; TEMP 36.9–37.6; O2SAT 97–99
[2019-04-16] MEDS: 0.9% Normal Saline 1,000 ML 150 ML IV (03:18)
[2019-04-16] MEDS: 0.9% NaCl Peripheral Flush Adult/Peds IV ×2 (06:32→18:48)
[2019-04-16 06:34] LABS: Absolute Lymphocyte Count 1.96 X10^3/ul (0.83-4.51); Absolute Neutrophil Count 7.1 X10^3/uL (2.0-7.7); Basophil# 0.01 X10^3/uL; Basophil% 0.1 % (0-1); Hematocrit 35.3 % (40-54); Hemoglobin 12.6 g/dl (13.0-16.5); Lymphocyte # 1.96 X10^3/ul (4.0); Lymphocyte % 19.8 % (19-41); Mean Corp Hgb Conc 35.7 g/gl (32-36); Mean Corpuscular Hgb 31.2 pg (27.0-32.0); Mean Corpuscular Volume 87.4 fL (80-94); Mean Platelet Vol. 9.3 fl (6.2-12.0); Monocyte# 0.75 X10^3/uL; Monocyte% 7.6 % (0-10); Neutrophil # 7.09 X10^3/uL (2.7-7.7); Neutrophil % 71.4 % (47-70); Platelet Count 196 K/mm3 (150-450); RBC Distribution Width CV 12.3 % (11.6-14.6); RBC Distribution Width SD 39.8 fl (35.1-43.9); Red Blood Count 4.04 M/mm3 (4.6-6.2); White Blood Count 9.9 K/mm3 (4.4-11.0)
[2019-04-16 06:36] LABS: POSITIVE COUNT NO; POSITIVE DIFFERENTIAL NO; POSITIVE MORPHOLOGY NO
[2019-04-16 06:46] LABS: Bedside Glucose 201 mg/dL (70-110)
[2019-04-16] MEDS: Insulin Lispro 100 UNIT/ML INSULN.PEN SC ×4 (06:47→22:53)
[2019-04-16 07:07] LABS: ALB/GLOB Ratio 0.9 RATIO (0.9-2.4); AST(SGOT) 29 U/L (15-37); Alanine Aminotransfer ALT/SGPT 45 U/L (16-61); Alkaline Phosphatase 82 U/L (45-117); Anion Gap 15 (5-15); BUN 5 mg/dL (7-18); Calcium,Total 8.2 mg/dL (8.5-10.1); Chloride 101 mmol/L (98-107); Cholesterol 164 mg/dL (200); Creatinine, Serum 1.01 mg/dL (0.70-1.30); EST Glomerular Filtration Rate 86 mL/min (>60); Est Glom Filt Rate - Afr Amer 104 mL/min (>60); Estimated Creatinine Clearance 103.51 ml/min; Globulin 3.2 g/dL (2.2-4.2); Glucose 198 mg/dL (74-106); High Density Lipoprotein 48 mg/dL; Magnesium 1.7 mg/dL (1.6-2.6); Protein, Total 6.2 g/dL (6.4-8.2); Sodium Level 137 mmol/L (136-145); Triglycerides 191 mg/dL; Very Low Density Lipoprotein 38 mg/dL (5-40)
--- NOTE | 2019-04-16 09:08 | DCINST_ITS ---
- Discharge Diagnoses Current Active Problems: Current Active and Chronic Problems (Last Reviewed 12/10/18 @ 08:24 by Jenifer Germain) (1) Acute Encephalopathy (metabolic) secondary to Acute DKA w/ Diabetes mellitus type I (2) Acute EtOH Withdrawal (3) Acute kidney injury, Secondary to #1 (4) Dilated Cardiomyopathy, CAD (5) Hypertension (6) Hyperlipidemia (7) Seizure Disorder (8) Tobacco Abuse (9) GERD You will use the following diet at home:: Calorie/Carbohydrate Controlled (specify 1200, 1400, etc) - 1800 ADA diet. Your food should be the consistency of: Regular Your liquids should be the consistency of: Regular/Thin Discharge Activity: Return to Normal Activity Call your doctor if you observe: Fever of 101 or Higher, Inability to urinate, Inability to have a bowel movement, Shortness of breath, Dizziness, Fainting spells, Chest pain, Uncontrolled pain Instructions: Diabetes and Your Child: Preventing Diabetic Ketoacidosis (DKA), What is Type 1 Diabetes?, Using Injected Insulin, Diabetes and Alcohol Consumption, Understanding Alcoholism, Alcoholism: Myths and Facts, The Impact of Alcoholism Additional Instructions: Your HgbA1c was 9.4% during admission. Please continue with the increased insulin regimen and insulin sliding scale per your home regimen. We strongly advise continued sobriety as your frequent heavy alcohol intake contributes to your DKA presentations. Please maintain also an appropriate diabetic diet. Please have repeat basic metabolic panel as well as magnesium and phosphorous levels with your primary care physician at follow-up. Allergies/Adverse Reactions: Allergies zinc Allergy (Intermediate, Verified 04/13/19 15:21) Hives Medications to take at Discharge Aspirin [Low Dose Aspirin EC] 81 mg PO DAILY 11/14/16 lisinopril 2.5 mg tablet 2.5 mg PO QDAY #90 tab 11/02/17 blood sugar diagnostic strips See Dose Instructions .ROUTE .MEDSUPPLY #120 ea 01/15/18 levetiracetam 500 mg tablet 500 mg PO BID 01/18/18 mirtazapine 15 mg tablet 30 mg PO QHS 01/18/18 Acetaminophen [Tylenol Tablet] 650 mg PO Q4H PRN PRN tab 10/03/18 flash glucose scanning reader See Dose Instructions .ROUTE .MEDSUPPLY #1 ea 12/10/18 flash glucose sensor kit See Dose Instructions .ROUTE .MEDSUPPLY #1 ea 12/10/18 insulin lispro (U- 100) 100 unit/mL subcutaneous pen See Rx Instructions SC TID ml 12/10/18 Acamprosate Calcium 2 tab PO BID 04/13/19 Carvedilol 3.125 mg PO BID 04/13/19 Folic Acid 1 tab PO DAILY 30 Days #30 tablet 04/16/19 Insulin Glargine,Hum.rec.anlog [Basaglar Kwikpen U-100] 20 unit SC BID #1 insuln.pen 04/16/19 Multivitamins,Therapeutic [Multivitamin] 1 tablet PO DAILYCM #30 tablet 04/16/19 Na Biphos/Potassium Phosphate [Neutra-Phos Packet] 1 packet PO TID #12 packet 04/16/19 Thiamine Hydrochloride [Vitamin B1] 100 mg PO DAILYCM #30 tablet 04/16/19 The following prescriptions were given: Folic Acid 1 tab PO DAILY 30 Days #30 tablet Multivitamins,Therapeutic [Multivitamin] 1 tablet PO DAILYCM #30 tablet Thiamine Hydrochloride [Vitamin B1] 100 mg PO DAILYCM #30 tablet Insulin Glargine,Hum.rec.anlog [Basaglar Kwikpen U-100] 20 unit SC BID #1 insuln.pen Na Biphos/Potassium Phosphate [Neutra-Phos Packet] 1 packet PO TID #12 packet Primary Care Physician: Moni Cintron MD [Primary Care Provider] - Please follow up with your Primary Care Physician in: Follow-up within 3-5 days to review admission. Test Results: Test results from this visit will be discussed in further detail at your follow- up appointment, if applicable. Please Follow Up With: Dory Phillips NP-C When: Please follow-up for closer diabetic monitoring and treatment. Proposed Discharge Date: 04/16/19
--- NOTE | 2019-04-16 09:11 | PCM.DC.SUM ---
Discharge Date and Diagnosis - Problem List Patient Problems: Active and Suspected Problems (Last Reviewed 12/10/18 @ 08:24 by Jenifer Germain) DKA, type 1 (Acute) Metabolic encephalopathy (Acute) ELIZABETH (acute kidney injury) (Acute) Hyponatremia (Acute) Hyperkalemia (Acute) Sinus tachycardia by electrocardiogram (Acute) Date of Admission: 04/13/19 Date of Discharge: 04/16/19 - Primary Discharge Diagnosis Active and Suspected Problems (Last Reviewed 12/10/18 @ 08:24 by Jenifer Germain) (1) Acute Encephalopathy (metabolic) secondary to Acute DKA w/ Diabetes mellitus type I (2) Acute EtOH Withdrawal (3) Acute kidney injury, Secondary to #1 (4) Dilated Cardiomyopathy, CAD (5) Hypertension (6) Hyperlipidemia (7) Seizure Disorder (8) Tobacco Abuse (9) GERD - Secondary Discharge Diagnosis Chronic Problems (Last Reviewed 12/10/18 @ 08:24 by Jenifer Germain) Nicotine abuse (Chronic) Thrombocytopenia (Chronic) Diabetes type I (Chronic) History of alcohol abuse (Chronic) CAD (coronary artery disease) (Chronic) Dental caries (Chronic) Hospital Course and Treatment Consultations 04/15/19 06:56 Consult: [facility] Routine Consulting Provider: Consulted Physician Type:: Other * Specify below * Reason for consult:: EtOH abuse, evaluation per [facility]. Operations: None Procedures: EKG Summary of Care Provided: The patient is a 44 y/o M w/ PMHx: Diabetes mellitus type I, CAD, Dilated Cardiomyopathy, Tobacco use, Seizure disorder, EtOH Abuse who presented to the [facility] ED on 04/13/19 with altered mental status with increased EtOH intake recently per family report. Upon admission notable electrolyte disturbances, aggressively hydrated, insulin drip initiated and initially admitted to the ICU. Anion gap closed x 2, transition to increased home SC insulin regimen with insulin sliding scale and diet initiated. Given patient clinical improvement and transition to SC insulin patient transferred to medical surgical floor from ICU status. Nutrition consultation for education and teaching. Encouraged diet and insulin regimen compliance. Patient with acute EtOH withdrawal upon admission given recent cessation secondary to acute DKA presentation with notably heavy intake therefore initiated and treated w/ [facility] service protocol with taper course of librium, as needed Catapres, Bentyl, Vistaril, IV fluids, IV antiemetics, Tylenol as needed for pain. [facility] consultation for assistance for transition to next level of rehabilitation care; however, patient declined any assistance and noted intention to attempt to only cut down on his alcohol intake. on thiamine, folic acid, MVI. Also during admission noted ELIZABETH, secondary to acute presentation DKA w/ admission BUN/Cr 22/1.43, prior baseline creatinine noted to be normal, 04/15/19 BUN/Cr 03/27.01. Patient discharged to home in improved condition, declined assistance with EtOH withdrawal program, encouraged restart home acamprosate regimen with follow-up with PCP within 3-5 days. DAY OF DISCHARGE PROGRESS NOTE: Subjective: Patient without acute event overnight per self and nursing report except mildly sedate with slow response with recent librium dosing, held AM dosing. Patient denies fever, chills, nausea, emesis, abdominal pain, chest pain or dyspnea but does have poor effort. Patient agreeable to discharge to home and still declining assist w/ alcohol abuse. Patient will be discharged with follow-up with primary care physician within 3-5 days. Objective: T 99.4, heart rate 86, BP 141/74, respiratory rate 16, 99% on room air Physical Examination: General: awakens but fatigued, alert once awake, oriented x [address], month, president, recent events, remains cooperative, seated upright in the bed, fatigued. Skin: normal color, turgor, no icterus, cyanosis. HEENT: AT/NC, EOMI, PERRLA, mildly dry MM. Lungs: Diminished BS BL bases, poor effort, no rales, ronchi or wheezing. Heart: Regular rate and rhythm; no gallop, rub audible. Abdomen: soft, thins habitus, NTTP, ND, normal BS. Extremities: no cyanosis, clubbing, or edema. Neurological: patient awake, alert, oriented x >3; cognitive function intact with questioning, slow responses. appears intact upon questioning,; pupils equally reactive to light and accomodation; cranial nerves II-XII grossly normal, moving all 4 extremities, strength moderately globally decreased. Psychiatric: affect appears flat, no acute evidence of depressive or anxiety feelings. Assessment and Plan: Please see hospital summary above. Patient Problems: Active and Suspected Problems (Last Reviewed 12/10/18 @ 08:24 by Jenifer Germain) DKA, type 1 (Acute) Metabolic encephalopathy (Acute) ELIZABETH (acute kidney injury) (Acute) Hyponatremia (Acute) Hyperkalemia (Acute) Sinus tachycardia by electrocardiogram (Acute) - Physical Exam Vital Signs Temp Pulse Resp BP Pulse Ox 99.6 F H 91 16 141/83 H 99 04/16/19 07:41 04/16/19 07:41 04/16/19 07:41 04/16/19 07:41 04/16/19 07:41 Oxygen Delivery Method Room Air Weight: 174 lb 6.17 oz Body Mass Index (BMI) 22.4 Finger Stick Blood Glucose 194 Intake and Output for Last 24 Hours 04/14/19 04/15/19 04/16/19 23:59 23:59 23:59 Intake Total 5956 / 5956 5428 / 5428 748 / 748 Output Total 2049 / 2049 2099 / 2099 Balance 3906 / 3906 3328 / 3328 748 / 748 Laboratory Tests Past 24 Hrs 04/16/19 04/16/19 06:20 06:20 WBC 9.9 RBC 4.04 L Hgb 12.6 L Hct 35.3 L MCV 87.4 MCH 31.2 MCHC 35.7 RDW 12.3 RDW Differential 39.8 Plt Count 196 MPV 9.3 Immature Gran % (Auto) 0.100 Neut % (Auto) 71.4 H Lymph % (Auto) 19.8 [place] % (Auto) 7.6 Eos % (Auto) 1.0 Baso % (Auto) 0.1 Absolute Neuts (auto) 7.1 Absolute Lymphs (auto) 1.96 Total Counted Not Reportable Sodium 137 Potassium 3.0 L Chloride 101 Carbon Dioxide 21.0 Anion Gap 15 BUN 5 L Creatinine 1.01 Estim Creat Clear Calc 103.51 Est GFR (MDRD) Af Amer 104 Est GFR (MDRD) Non-Af 86 BUN/Creatinine Ratio 5.0 L Glucose 198 H Calcium 8.2 L Phosphorus 1.0 L* Magnesium 1.7 Total Bilirubin 1.50 H AST 29 ALT 45 Alkaline Phosphatase 82 Total Protein 6.2 L Albumin 3.0 L Globulin 3.2 Albumin/Globulin Ratio 0.9 Triglycerides 191 Cholesterol 164 LDL Cholesterol 78 VLDL Cholesterol 38 HDL Cholesterol 48 POC Glucose 04/16/19 04/15/19 04/15/19 06:43 22:36 17:16 POC Glucose 201 H 220 H 210 H 04/15/19 10:42 POC Glucose 218 H Discharge Activity: Return to Normal Activity Call your doctor if you observe: Fever of 101 or Higher, Inability to urinate, Inability to have a bowel movement, Shortness of breath, Dizziness, Fainting spells, Chest pain, Uncontrolled pain Home Medications: Medications to take at Discharge Aspirin [Low Dose Aspirin EC] 81 mg PO DAILY 11/14/16 lisinopril 2.5 mg tablet 2.5 mg PO QDAY #90 tab 11/02/17 blood sugar diagnostic strips See Dose Instructions .ROUTE .MEDSUPPLY #120 ea 01/15/18 levetiracetam 500 mg tablet 500 mg PO BID 01/18/18 mirtazapine 15 mg tablet 30 mg PO QHS 01/18/18 Acetaminophen [Tylenol Tablet] 650 mg PO Q4H PRN PRN tab 10/03/18 flash glucose scanning reader See Dose Instructions .ROUTE .MEDSUPPLY #1 ea 12/10/18 flash glucose sensor kit See Dose Instructions .ROUTE .MEDSUPPLY #1 ea 12/10/18 insulin lispro (U- 100) 100 unit/mL subcutaneous pen See Rx Instructions SC TID ml 12/10/18 Acamprosate Calcium 2 tab PO BID 04/13/19 Carvedilol 3.125 mg PO BID 04/13/19 Folic Acid 1 tab PO DAILY 30 Days #30 tablet 04/16/19 Insulin Glargine,Hum.rec.anlog [Basaglar Kwikpen U-100] 20 unit SC BID #1 insuln.pen 04/16/19 Multivitamins,Therapeutic [Multivitamin] 1 tablet PO DAILYCM #30 tablet 04/16/19 Na Biphos/Potassium Phosphate [Neutra-Phos Packet] 1 packet PO TID #12 packet 04/16/19 Thiamine Hydrochloride [Vitamin B1] 100 mg PO DAILYCM #30 tablet 04/16/19 Following Prescrptions Were Given to Patient: Folic Acid 1 tab PO DAILY 30 Days #30 tablet Multivitamins,Therapeutic [Multivitamin] 1 tablet PO DAILYCM #30 tablet Thiamine Hydrochloride [Vitamin B1] 100 mg PO DAILYCM #30 tablet Insulin Glargine,Hum.rec.anlog [Basaglar Kwikpen U-100] 20 unit SC BID #1 insuln.pen Na Biphos/Potassium Phosphate [Neutra-Phos Packet] 1 packet PO TID #12 packet Primary Care Physician: Moni Cintron MD [Primary Care Provider] - Please follow up with your Primary Care Physician in: Follow-up within 3-5 days to review admission. Please Follow Up With: Dory Phillips NP-C When: Please follow-up for closer diabetic monitoring and treatment. Patient Instructions: Diabetes and Alcohol Consumption, What is Type 1 Diabetes?, Using Injected Insulin, Understanding Alcoholism, Alcoholism: Myths and Facts, The Impact of Alcoholism, Diabetes and Your Child: Preventing Diabetic Ketoacidosis (DKA) Disposition: Home Minutes spent on discharge:: 35 Patient Condition:: Stable Medical Necessity - Tobacco Use Smoking Status: Current every day smoker Tobacco Use: Cigarettes Meaningful Use Info Meaningful Use Diagnoses (Choose all that apply): None applicable Code Visit Inpatient E&M: 53331 Disch Hosp
[2019-04-16] MEDS: Carvedilol 3.125 MG TABLET PO ×2 (09:27→22:52)
[2019-04-16] MEDS: levETIRAcetam 500 MG Tablet PO ×2 (09:27→22:52)
[2019-04-16] MEDS: Multivitamins,Therapeutic Tablet 1 TABLET PO (09:27)
[2019-04-16] MEDS: Folic Acid 1 MG Tablet PO (09:27)
[2019-04-16] MEDS: Lisinopril 2.5 MG Tablet PO (09:27)
[2019-04-16] MEDS: Aspirin E.C. 81 MG Tablet PO (09:27)
[2019-04-16] MEDS: Thiamine Hydrochloride 100 MG Tablet PO (09:27)
[2019-04-16] MEDS: Famotidine 20 MG Tablet PO ×2 (09:27→22:52)
[2019-04-16] MEDS: Enoxaparin 40 MG/0.4 ML Syringe SC (09:28)
[2019-04-16 11:31] LABS: Bedside Glucose 213 mg/dL (70-110)
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
--- NOTE | 2019-04-16 14:55 | RAD_ITS ---
STUDY: X-RAY CHEST REASON FOR EXAM: Male, 44 years old. Shortness of breath TECHNIQUE: Single AP portable view of the chest. COMPARISON: April 13, 2019 chest x-ray FINDINGS: Allowing for the inspiratory effort there is increasing density within the right middle lobe. There is no demonstrated pleural abnormality. Normal size heart. Normal mediastinum and sherry. Normal visualized pulmonary arteries. Normal visualized aortic arch and descending thoracic aorta. Normal visualized thoracic spine. Normal visualized ribs, clavicles, and shoulders. There is no demonstrated abnormality of the visualized soft tissue structures of the upper abdomen. RAD/Chest PA and Lateral IMPRESSION: Middle lobe atelectasis and or developing infiltrate. Electronically Signed: Belem Phelps MD at 16:32 EDT Tel , Service support ,
[2019-04-16 15:37] LABS: Bacteria 0 SEEN /hpf (None Seen); Mucous, Urine 0 SEEN /hpf (<or=2+); Red Blood Cells-Urine 0 SEEN /hpf (0-5); Squamous Epithelial Cells - UA 0 SEEN /hpf (0-5); White Blood Cells 0 SEEN /hpf (0-5)
[2019-04-16 15:41] LABS: Color, Urine Yellow (Yellow); Glucose, Dipstick 1000 mg/dl (Normal); Leukocyte Esterase-Dipstick Negative /ul (Negative); Nitrite-Dipstick Negative (Negative); Occult Blood-Urine Negative /ul (Negative); Protein-Dipstick Negative (Negative); Specific Gravity, Urine 1.005 (1.002-1.030); Urine Bilirubin Dipstick Negative (Negative); Urine Clarity Clear (Clear); Urine Urobilinogen Normal (Normal)
[2019-04-16 15:46] LABS: Ketone-Dipstick 150 mg/dl (Negative)
[2019-04-16 17:45] LABS: Bedside Glucose 232 mg/dL (70-110)
--- NOTE | 2019-04-16 19:36 | PCM.RX.CS ---
Consult Pharmacy has been consulted to manage selected antiobiotic: Vancomycin Type of Consult: New start Suspected Infection: Pneumonia Labs: Sodium 137 mmol/L (136-145) 04/16/19 06:20 Potassium 3.0 mmol/L (3.5-5.1) L 04/16/19 06:20 Chloride 101 mmol/L (98-107) 04/16/19 06:20 Carbon Dioxide 21.0 mmol/L (21.0-32.0) 04/16/19 06:20 Anion Gap 15 (5-15) 04/16/19 06:20 BUN 5 mg/dL (7-18) L 04/16/19 06:20 Creatinine 1.01 mg/dL (0.70-1.30) 04/16/19 06:20 Est GFR (MDRD) Af Amer 104 mL/min (>60) 04/16/19 06:20 Est GFR (MDRD) Non-Af 86 mL/min (>60) 04/16/19 06:20 BUN/Creatinine Ratio 5.0 RATIO (10-20) L 04/16/19 06:20 Glucose 198 mg/dL (74-106) H 04/16/19 06:20 Microbiology: Microbiology 04/16/19 15:25 Urine Catheter - Catheter Legionella Antigen - Final 04/16/19 15:25 Urine Catheter - Catheter Streptococcus pneumoniae Antigen (M - Final Weight used for dosin.1 kg Estimated Creatinine Clearance: 103 ML/MIN Goal Trough: 10-15 mcg/mL Pharmacy Plan for Drug Dosing: Start with 2000mg IV x1 load dose as ordered, then continue with 1250mg IV q12h. Obtain a trough before the 4th dose. Pharmacy Service will continue to monitor and adjust dosing as required. Follow-Up Labs: Trough Vancomycin Labs to be done on [date and time ordered]: 04/18/19 06:30
[2019-04-16] MEDS: Ibuprofen 600 MG Tablet PO (20:13)
[2019-04-16 20:19] LABS: M R Staph aureus DNA By PCR Negative (Negative); Probe Check PASS; Specimen Processing Control PASS
[2019-04-16] MEDS: Mirtazapine 15 MG Tablet 30 MG PO (22:53)
[2019-04-16 23:31] LABS: Bedside Glucose 178 mg/dL (70-110)
[2019-04-17] VITALS (9 sets, daily range): BP systolic 132–157; BP diastolic 80–85; PULSE 73–85; RESP 16–18; TEMP 36.7–37.2; O2SAT 94–98
[2019-04-17] MEDS: Ibuprofen 600 MG Tablet PO ×2 (05:48→19:16)
[2019-04-17 07:07] LABS: Absolute Lymphocyte Count 1.81 X10^3/ul (0.83-4.51); Absolute Neutrophil Count 5.9 X10^3/uL (2.0-7.7); Basophil# 0.01 X10^3/uL; Basophil% 0.1 % (0-1); Eosinophil# 0.24 X10^3/uL; Eosinophils% 2.8 % (0-5); Hematocrit 39.9 % (40-54); Hemoglobin 14.5 g/dl (13.0-16.5); Lymphocyte # 1.81 X10^3/ul (4.0); Lymphocyte % 20.8 % (19-41); Mean Corp Hgb Conc 36.3 g/gl (32-36); Mean Corpuscular Hgb 31.5 pg (27.0-32.0); Mean Corpuscular Volume 86.6 fL (80-94); Mean Platelet Vol. 10.1 fl (6.2-12.0); Monocyte# 0.76 X10^3/uL; Monocyte% 8.7 % (0-10); Neutrophil # 5.88 X10^3/uL (2.7-7.7); Neutrophil % 67.4 % (47-70); POSITIVE COUNT NO; POSITIVE DIFFERENTIAL NO; POSITIVE MORPHOLOGY NO; Platelet Count 222 K/mm3 (150-450); RBC Distribution Width CV 11.7 % (11.6-14.6); RBC Distribution Width SD 36.8 fl (35.1-43.9); Red Blood Count 4.61 M/mm3 (4.6-6.2); White Blood Count 8.7 K/mm3 (4.4-11.0)
[2019-04-17 07:11] LABS: Bedside Glucose 87 mg/dL (70-110)
[2019-04-17 07:11] LABS: Bedside Glucose 64 mg/dL (70-110)
[2019-04-17 07:49] LABS: ALB/GLOB Ratio 0.9 RATIO (0.9-2.4); AST(SGOT) 15 U/L (15-37); Alanine Aminotransfer ALT/SGPT 37 U/L (16-61); Albumin, Serum 3.2 g/dL (3.2-5.0); Alkaline Phosphatase 79 U/L (45-117); Anion Gap 10 (5-15); BUN 5 mg/dL (7-18); BUN/Creat Ratio 5.7 RATIO (10-20); Calcium,Total 8.7 mg/dL (8.5-10.1); Chloride 106 mmol/L (98-107); Creatinine, Serum 0.88 mg/dL (0.70-1.30); EST Glomerular Filtration Rate 101 mL/min (>60); Est Glom Filt Rate - Afr Amer 122 mL/min (>60); Estimated Creatinine Clearance 118.34 ml/min; Globulin 3.5 g/dL (2.2-4.2); Glucose 71 mg/dL (74-106); Phosphorus 2.1 mg/dL (2.5-4.9); Protein, Total 6.7 g/dL (6.4-8.2); Sodium Level 141 mmol/L (136-145)
[2019-04-17] MEDS: Lisinopril 2.5 MG Tablet PO (08:17)
[2019-04-17] MEDS: Multivitamins,Therapeutic Tablet 1 TABLET PO (08:17)
[2019-04-17] MEDS: Thiamine Hydrochloride 100 MG Tablet PO (08:18)
[2019-04-17] MEDS: levETIRAcetam 500 MG Tablet PO ×2 (08:18→22:17)
[2019-04-17] MEDS: Aspirin E.C. 81 MG Tablet PO (08:18)
[2019-04-17] MEDS: Carvedilol 3.125 MG TABLET PO ×2 (08:18→22:17)
[2019-04-17] MEDS: Enoxaparin 40 MG/0.4 ML Syringe SC (08:18)
[2019-04-17] MEDS: Folic Acid 1 MG Tablet PO (08:18)
[2019-04-17] MEDS: Famotidine 20 MG Tablet PO ×2 (08:18→22:17)
[2019-04-17] MEDS: Acetaminophen 500 MG Tablet PO ×2 (08:20→14:38)
--- NOTE | 2019-04-17 09:34 | PCM.PN.HOSP ---
Patient Problems: Active and Suspected Problems (Last Reviewed 12/10/18 @ 08:24 by Jenifer Germain) DKA, type 1 (Acute) Metabolic encephalopathy (Acute) ELIZABETH (acute kidney injury) (Acute) Hyponatremia (Acute) Hyperkalemia (Acute) Sinus tachycardia by electrocardiogram (Acute) Subjective: Patient improved from day prior, more alert this morning but still slow to respond, suspecting possibly nearing baseline. Patient with improved respiratory effort. Discussed plan of care which included de-escalation of antibiotic therapy given MRSA screen negative to only Zosyn with suspected aspiration and continued evaluation and monitoring with possible transition to oral antibiotic therapy tomorrow and discharge tomorrow if remains clinically appropriate. Again discussed outpatient rehab programs including residential programs and patient is willing to have information but that he likely would not do this. Patient denies fevers, chills, nausea, emesis, abdominal pain, chest pain or dyspnea. Objective: Physical Examination: General: awake, alert, oriented x 3 including year, month, place, recent events and cooperative, seated upright in bed in no apparent distress. Skin: normal color, turgor, no icterus, cyanosis. HEENT: AT/NC, EOMI, PERRLA, improved less dry MM. Lungs: Diminished breath sounds, greater bilateral bases, right greater than left, effort improved from day prior, no rales, ronchi or wheezing. Heart: Regular rate and rhythm; no gallop, rub audible. Abdomen: soft, NTTP, ND, normal BS. Extremities: no cyanosis, clubbing, or edema. Neurological: patient awake, alert, oriented x 3; cognitive function intact; pupils equally reactive to light and accomodation; cranial nerves II-XII grossly normal, moving all 4 extremities, no focal deficits, strength improving, mildly to moderately globally decreased. Psychiatric: affect appears proved, more interactive, still mildly flat, no acute evidence of depressive or anxiety feelings. Vitals/I&O's: Vital Signs Temp Pulse Resp BP Pulse Ox 98.1 F 78 18 155/85 H 98 04/17/19 08:15 04/17/19 08:15 04/17/19 08:15 04/17/19 08:15 04/17/19 08:15 Oxygen Delivery Method Room Air Weight: 170 lb 6.677 oz Body Mass Index (BMI) 22.4 Finger Stick Blood Glucose 194 Intake and Output for Last 24 Hours 04/15/19 04/16/19 04/17/19 23:59 23:59 23:59 Intake Total 5428 / 5428 2035 1100 / 1100 Output Total 2099 / 2099 300 / 300 Balance 3328 / 3328 2035 800 / 800 Microbiology Past 72 Hours 04/16/19 15:25 Urine Catheter - Catheter Legionella Antigen - Final 04/16/19 15:25 Urine Catheter - Catheter Streptococcus pneumoniae Antigen (M - Final Laboratory Results 04/16/19 11:20: POC Glucose 213 H 04/16/19 15:25: Urine Color Yellow, Urine Clarity Clear, Urine pH 7.0, Ur Specific [place] 1.005, Urine Protein Negative, Urine Glucose (UA) 1000 H, Urine Ketones 150 H, Urine Occult Blood Negative, Urine Nitrite Negative, Urine Bilirubin Negative, Urine Urobilinogen Normal, Ur Leukocyte Esterase Negative, Urine RBC 0 SEEN, Urine WBC 0 SEEN, Ur Squamous Epith Cells 0 SEEN, Urine Bacteria 0 SEEN, Urine Mucus 0 SEEN 04/16/19 17:15: MRSA (PCR) Negative 04/16/19 17:20: POC Glucose 232 H 04/16/19 22:52: POC Glucose 178 H 04/17/19 06:09: WBC 8.7, RBC 4.61, Hgb 14.5, Hct 39.9 L, MCV 86.6, MCH 31.5, MCHC 36.3 H, RDW 11.7, RDW Differential 36.8, Plt Count 222, MPV 10.1, Immature Gran % (Auto) 0.200, Neut % (Auto) 67.4, Lymph % (Auto) 20.8, [place] % (Auto) 8.7, Eos % (Auto) 2.8, Baso % (Auto) 0.1, Absolute Neuts (auto) 5.9, Absolute Lymphs (auto) 1.81, Total Counted Not Reportable 04/17/19 06:09: Sodium 141, Potassium 3.0 L, Chloride 106, Carbon Dioxide 25.0, Anion Gap 10, BUN 5 L, Creatinine 0.88, Estim Creat Clear Calc 118.34, Est GFR (MDRD) Af Amer 122, Est GFR (MDRD) Non-Af 101, BUN/Creatinine Ratio 5.7 L, Glucose 71 L, Calcium 8.7, Phosphorus 2.1 L, Magnesium 2.0, Total Bilirubin 1.10 H, AST 15, ALT 37, Alkaline Phosphatase 79, Total Protein 6.7, Albumin 3.2, Globulin 3.5, Albumin/Globulin Ratio 0.9 04/17/19 06:41: POC Glucose 64 L 04/17/19 07:01: POC Glucose 87 Current Medications Acetaminophen (Tylenol) 500 mg PO Q4H PRN PRN PRN Reason: Temp > 100.4 F Last Admin: 04/17/19 08:20 Dose: 500 mg Al Hydroxide/Mg Hydroxide (Mylanta Ii) 30 ml PO Q6H PRN PRN PRN Reason: dyspesia Albuterol Sulfate (Ventolin Aerosols) 2.5 mg INHALATION Q2H PRN PRN PRN Reason: dyspnea, wheezing Aspirin (Ecotrin) 81 mg PO DAILYCM [facility] Last Admin: 04/17/19 08:18 Dose: 81 mg Bisacodyl (Dulcolax) 10 mg RECTAL DAILY PRN PRN Reason: Constipation Carvedilol (Coreg) 3.125 mg PO BID [facility] Last Admin: 04/17/19 08:18 Dose: 3.125 mg Dextrose (D50w Syringe) 0 gm IV X1 PRN; Protocol PRN Reason: Protocol Dicyclomine HCl (Bentyl) 20 mg PO Q6H PRN PRN PRN Reason: abdominal discomfort Enoxaparin Sodium (Lovenox) 40 mg SC DAILY@1000 [facility] Last Admin: 04/17/19 08:18 Dose: 40 mg Famotidine (Pepcid) 20 mg PO BID [facility] Last Admin: 04/17/19 08:18 Dose: 20 mg Glucagon () 1 mg IM .X1 PRN PRN Reason: Hypoglycemia Hydralazine HCl (Apresoline Iv) 10 mg IV Q4H PRN PRN PRN Reason: SBP > 160 Piperacillin Sod/Tazobactam (Sod 3.375 gm/ Sodium Chloride) 50 mls @ 12.5 mls/hr IV Q8 [facility] Last Admin: 04/17/19 05:45 Dose: 12.5 mls/hr Potassium Phosphate 15 mm/ (Sodium Chloride) 255 mls @ 125 mls/hr IV X1 ONE Stop: 04/17/19 11:35 Ibuprofen (Motrin) 600 mg PO Q8H PRN PRN PRN Reason: Mild-Moderate Pain (1-5/10) Last Admin: 04/17/19 05:48 Dose: 600 mg Insulin Glargine (Lantus (Bkc)) 25 units SC 1100,2200 [facility] Last Admin: 04/16/19 22:53 Dose: 25 u Insulin Human Lispro (Humalog Kwikpen (Bkc)) 0 unit SC ACHS [facility]; Protocol Last Admin: 04/17/19 07:03 Dose: Not Given Levetiracetam (Keppra Tablet) 500 mg PO BID [facility] Last Admin: 04/17/19 08:18 Dose: 500 mg Lisinopril (Zestril) 2.5 mg PO DAILY [facility] Last Admin: 04/17/19 08:17 Dose: 2.5 mg Loperamide HCl (Imodium) 2 - 4 mg PO UD PRN PRN Reason: LOOSE STOOLS Methocarbamol (Methocarbamol) 750 mg PO Q6H PRN PRN PRN Reason: Muscle Aches Mirtazapine (Remeron) 30 mg PO QHS [facility] Last Admin: 04/16/19 22:53 Dose: 30 mg [facility]ivitamins ([facility]amin) [facility] Last Admin: 04/17/19 08:17 Dose: 1 tablet Nicotine (Nicoderm Cq (Pbkc)) 21 mg TRANSDERM. DAILY [facility] Last Admin: 04/17/19 08:18 Dose: 21 mg Ondansetron HCl (Zofran) 4 mg IV Q8H PRN PRN PRN Reason: NAUSEA/VOMITING Ondansetron HCl (Zofran Odt) 4 mg PO Q6H PRN PRN PRN Reason: NAUSEA Senna (Senokot) 1 tablet PO QHS PRN PRN Reason: Constipation Sodium Chloride () 5 - 15 ml IV UD PRN PRN Reason: SALINE FLUSH Last Admin: 04/16/19 18:48 Dose: 10 ml Medical Necessity - Tobacco Use Smoking Status: Current every day smoker Tobacco Use: Cigarettes Assessment/Plan All Active Problems (Last Reviewed 12/10/18 @ 08:24 by Jenifer Germain) DKA, type 1 (Acute) Metabolic encephalopathy (Acute) ELIZABETH (acute kidney injury) (Acute) Hyponatremia (Acute) Hyperkalemia (Acute) Sinus tachycardia by electrocardiogram (Acute) DKA (diabetic ketoacidoses) (Acute) The patient is a 44 y/o M w/ PMHx: Diabetes mellitus type I, CAD, Dilated Cardiomyopathy, Tobacco use, Seizure disorder, EtOH Abuse who presents to the [facility] ED on 04/13/19 with altered mental status with increased EtOH intake recently per family report. (1) Acute Encephalopathy (metabolic) secondary to Acute DKA w/ Diabetes mellitus type I: Upon admission notable electrolyte disturbances, aggressively hydrated, insulin drip initiated and initially admitted to the ICU. Anion gap closed x2, transition to subcu insulin regimen with insulin sliding scale and diet initiated. Given patient clinical improvement 04/15/19 transitioned to SC insulin and transitioned to medical surgical floor from ICU w/ accu checks w/ ISS, nutrition consultation for education and teaching. Encouraged diet and insulin regimen compliance. (2) Acute EtOH Withdrawal: Complicated admission, severe electrolyte disturbances, continued correction, treated with [facility] service protocol with taper course of librium; however, very sedate, discontinued, no marked evidence of ongoing alcohol withdrawal symptoms. Declined any transition to outpatient facility. Maintain on thiamine, folic acid, MVI. (3) Acute kidney injury: Secondary to #1. Admission BUN/Cr 22/1.43, prior baseline creatinine noted to be normal, 04/14/19 BUN/Cr 17/1.30-->04/16/19 BUN/Cr 5/1.01. Hydrated, initially held nephrotoxic medications, given resolution added back ACEI given improvement. (4) Suspected Aspiration Pneumonia: Low-grade temperatures noted x24 hours, more sluggish and less interactive, obtained 04/16/19 CXR w/ concern for RML infiltrate. Will maintain on oxygen with wean as tolerated to room air, continue ATC duonebs, PRN albuterol, maintained on IV Zosyn and initially Vancomycin but MRSA screen negative given recent ICU admission, prolonged hospital stay since 04/13/19, noted to be negative therefore discontinued. Maintain HOB, IS parameters w/ negative urine antigens. UA not marked appearing. (5) Dilated Cardiomyopathy, CAD: Continue home aspirin, Coreg, lisinopril, not on statin therapy. (6) Hypertension: Continue home regimen including coreg, lisinopril added back given improved renal function, PRN hydralazine. (7) Hyperlipidemia: Not on regimen, FLP w/ triglyceride 191, total cholesterol 164, LDL 78, VLDL 38, HDL 48. (8) Seizure Disorder: Continue home keppra regimen. (9) Tobacco Abuse: Encouraged cessation, inpatient consultation per RT, NR if desired. (10) GERD: Famotidine. (11) DVT Prophylaxis: SCDs, Lovenox. Code Visit Inpatient E&M: 72382 Subs Hosp L2
--- NOTE | 2019-04-17 09:39 | PN_ITS ---
Patient Problems: Active and Suspected Problems (Last Reviewed 12/10/18 @ 08:24 by Jenifer Germain) DKA, type 1 (Acute) Metabolic encephalopathy (Acute) ELIZABETH (acute kidney injury) (Acute) Hyponatremia (Acute) Hyperkalemia (Acute) Sinus tachycardia by electrocardiogram (Acute) Subjective: Patient improved from day prior, more alert this morning but still slow to respond, suspecting possibly nearing baseline. Patient with improved respiratory effort. Discussed plan of care which included de-escalation of antibiotic therapy given MRSA screen negative to only Zosyn with suspected aspiration and continued evaluation and monitoring with possible transition to oral antibiotic therapy tomorrow and discharge tomorrow if remains clinically appropriate. Again discussed outpatient rehab programs including residential programs and patient is willing to have information but that he likely would not do this. Patient denies fevers, chills, nausea, emesis, abdominal pain, chest pain or dyspnea. Objective: Physical Examination: General: awake, alert, oriented x 3 including year, month, place, recent events and cooperative, seated upright in bed in no apparent distress. Skin: normal color, turgor, no icterus, cyanosis. HEENT: AT/NC, EOMI, PERRLA, improved less dry MM. Lungs: Diminished breath sounds, greater bilateral bases, right greater than left, effort improved from day prior, no rales, ronchi or wheezing. Heart: Regular rate and rhythm; no gallop, rub audible. Abdomen: soft, NTTP, ND, normal BS. Extremities: no cyanosis, clubbing, or edema. Neurological: patient awake, alert, oriented x 3; cognitive function intact; pupils equally reactive to light and accomodation; cranial nerves II-XII grossly normal, moving all 4 extremities, no focal deficits, strength improving, mildly to moderately globally decreased. Psychiatric: affect appears proved, more interactive, still mildly flat, no acute evidence of depressive or anxiety feelings. Vitals/I&O's: Vital Signs Temp Pulse Resp BP Pulse Ox 98.1 F 78 18 155/85 H 98 04/17/19 08:15 04/17/19 08:15 04/17/19 08:15 04/17/19 08:15 04/17/19 08:15 Oxygen Delivery Method Room Air Weight: 170 lb 6.677 oz Body Mass Index (BMI) 22.4 Finger Stick Blood Glucose 194 Intake and Output for Last 24 Hours 04/15/19 04/16/19 04/17/19 23:59 23:59 23:59 Intake Total 5428 / 5428 2035 1100 / 1100 Output Total 2099 / 2099 300 / 300 Balance 3328 / 3328 2035 800 / 800 Microbiology Past 72 Hours 04/16/19 15:25 Urine Catheter - Catheter Legionella Antigen - Final 04/16/19 15:25 Urine Catheter - Catheter Streptococcus pneumoniae Antigen (M - Final Laboratory Results 04/16/19 11:20: POC Glucose 213 H 04/16/19 15:25: Urine Color Yellow, Urine Clarity Clear, Urine pH 7.0, Ur Specific [place] 1.005, Urine Protein Negative, Urine Glucose (UA) 1000 H, Urine Ketones 150 H, Urine Occult Blood Negative, Urine Nitrite Negative, Urine Bilirubin Negative, Urine Urobilinogen Normal, Ur Leukocyte Esterase Negative, Urine RBC 0 SEEN, Urine WBC 0 SEEN, Ur Squamous Epith Cells 0 SEEN, Urine Bacteria 0 SEEN, Urine Mucus 0 SEEN 04/16/19 17:15: MRSA (PCR) Negative 04/16/19 17:20: POC Glucose 232 H 04/16/19 22:52: POC Glucose 178 H 04/17/19 06:09: WBC 8.7, RBC 4.61, Hgb 14.5, Hct 39.9 L, MCV 86.6, MCH 31.5, MCHC 36.3 H, RDW 11.7, RDW Differential 36.8, Plt Count 222, MPV 10.1, Immature Gran % (Auto) 0.200, Neut % (Auto) 67.4, Lymph % (Auto) 20.8, [place] % (Auto) 8.7, Eos % (Auto) 2.8, Baso % (Auto) 0.1, Absolute Neuts (auto) 5.9, Absolute Lymphs (auto) 1.81, Total Counted Not Reportable 04/17/19 06:09: Sodium 141, Potassium 3.0 L, Chloride 106, Carbon Dioxide 25.0, Anion Gap 10, BUN 5 L, Creatinine 0.88, Estim Creat Clear Calc 118.34, Est GFR (MDRD) Af Amer 122, Est GFR (MDRD) Non-Af 101, BUN/Creatinine Ratio 5.7 L, Glucose 71 L, Calcium 8.7, Phosphorus 2.1 L, Magnesium 2.0, Total Bilirubin 1.10 H, AST 15, ALT 37, Alkaline Phosphatase 79, Total Protein 6.7, Albumin 3.2, Globulin 3.5, Albumin/Globulin Ratio 0.9 04/17/19 06:41: POC Glucose 64 L 04/17/19 07:01: POC Glucose 87 Current Medications Acetaminophen (Tylenol) 500 mg PO Q4H PRN PRN PRN Reason: Temp > 100.4 F Last Admin: 04/17/19 08:20 Dose: 500 mg Al Hydroxide/Mg Hydroxide (Mylanta Ii) 30 ml PO Q6H PRN PRN PRN Reason: dyspesia Albuterol Sulfate (Ventolin Aerosols) 2.5 mg INHALATION Q2H PRN PRN PRN Reason: dyspnea, wheezing Aspirin (Ecotrin) 81 mg PO DAILYCM [facility] Last Admin: 04/17/19 08:18 Dose: 81 mg Bisacodyl (Dulcolax) 10 mg RECTAL DAILY PRN PRN Reason: Constipation Carvedilol (Coreg) 3.125 mg PO BID [facility] Last Admin: 04/17/19 08:18 Dose: 3.125 mg Dextrose (D50w Syringe) 0 gm IV X1 PRN; Protocol PRN Reason: Protocol Dicyclomine HCl (Bentyl) 20 mg PO Q6H PRN PRN PRN Reason: abdominal discomfort Enoxaparin Sodium (Lovenox) 40 mg SC DAILY@1000 [facility] Last Admin: 04/17/19 08:18 Dose: 40 mg Famotidine (Pepcid) 20 mg PO BID [facility] Last Admin: 04/17/19 08:18 Dose: 20 mg Glucagon () 1 mg IM .X1 PRN PRN Reason: Hypoglycemia Hydralazine HCl (Apresoline Iv) 10 mg IV Q4H PRN PRN PRN Reason: SBP > 160 Piperacillin Sod/Tazobactam (Sod 3.375 gm/ Sodium Chloride) 50 mls @ 12.5 mls/hr IV Q8 [facility] Last Admin: 04/17/19 05:45 Dose: 12.5 mls/hr Potassium Phosphate 15 mm/ (Sodium Chloride) 255 mls @ 125 mls/hr IV X1 ONE Stop: 04/17/19 11:35 Ibuprofen (Motrin) 600 mg PO Q8H PRN PRN PRN Reason: Mild-Moderate Pain (1-5/10) Last Admin: 04/17/19 05:48 Dose: 600 mg Insulin Glargine (Lantus (Bkc)) 25 units SC 1100,2200 [facility] Last Admin: 04/16/19 22:53 Dose: 25 u Insulin Human Lispro (Humalog Kwikpen (Bkc)) 0 unit SC ACHS [facility]; Protocol Last Admin: 04/17/19 07:03 Dose: Not Given Levetiracetam (Keppra Tablet) 500 mg PO BID [facility] Last Admin: 04/17/19 08:18 Dose: 500 mg Lisinopril (Zestril) 2.5 mg PO DAILY [facility] Last Admin: 04/17/19 08:17 Dose: 2.5 mg Loperamide HCl (Imodium) 2 - 4 mg PO UD PRN PRN Reason: LOOSE STOOLS Methocarbamol (Methocarbamol) 750 mg PO Q6H PRN PRN PRN Reason: Muscle Aches Mirtazapine (Remeron) 30 mg PO QHS [facility] Last Admin: 04/16/19 22:53 Dose: 30 mg [facility]ivit[facility] ([facility]ivitamin) [facility] Last Admin: 04/17/19 08:17 Dose: 1 tablet Nicotine (Nicoderm Cq (Pbkc)) 21 mg TRANSDERM. DAILY [facility] Last Admin: 04/17/19 08:18 Dose: 21 mg Ondansetron HCl (Zofran) 4 mg IV Q8H PRN PRN PRN Reason: NAUSEA/VOMITING Ondansetron HCl (Zofran Odt) 4 mg PO Q6H PRN PRN PRN Reason: NAUSEA Senna (Senokot) 1 tablet PO QHS PRN PRN Reason: Constipation Sodium Chloride () 5 - 15 ml IV UD PRN PRN Reason: SALINE FLUSH Last Admin: 04/16/19 18:48 Dose: 10 ml Medical Necessity - Tobacco Use Smoking Status: Current every day smoker Tobacco Use: Cigarettes Assessment/Plan All Active Problems (Last Reviewed 12/10/18 @ 08:24 by Jenifer Germain) DKA, type 1 (Acute) Metabolic encephalopathy (Acute) ELIZABETH (acute kidney injury) (Acute) Hyponatremia (Acute) Hyperkalemia (Acute) Sinus tachycardia by electrocardiogram (Acute) DKA (diabetic ketoacidoses) (Acute) The patient is a 44 y/o M w/ PMHx: Diabetes mellitus type I, CAD, Dilated Cardiomyopathy, Tobacco use, Seizure disorder, EtOH Abuse who presents to the [facility] ED on 04/13/19 with altered mental status with increased EtOH intake recently per family report. (1) Acute Encephalopathy (metabolic) secondary to Acute DKA w/ Diabetes mellitus type I: Upon admission notable electrolyte disturbances, aggressively hydrated, insulin drip initiated and initially admitted to the ICU. Anion gap closed x2, transition to subcu insulin regimen with insulin sliding scale and diet initiated. Given patient clinical improvement 04/15/19 transitioned to SC insulin and transitioned to medical surgical floor from ICU w/ accu checks w/ ISS, nutrition consultation for education and teaching. Encouraged diet and insulin regimen compliance. (2) Acute EtOH Withdrawal: Complicated admission, severe electrolyte disturbances, continued correction, treated with [facility] service protocol with taper course of librium; however, very sedate, discontinued, no marked evidence of ongoing alcohol withdrawal symptoms. Declined any transition to outpatient facility. Maintain on thiamine, folic acid, MVI. (3) Acute kidney injury: Secondary to #1. Admission BUN/Cr 22/1.43, prior baseline creatinine noted to be normal, 04/14/19 BUN/Cr 17/1.30-->04/16/19 BUN/Cr 5/1.01. Hydrated, initially held nephrotoxic medications, given resolution added back ACEI given improvement. (4) Suspected Aspiration Pneumonia: Low-grade temperatures noted x24 hours, more sluggish and less interactive, obtained 04/16/19 CXR w/ concern for RML infiltrate. Will maintain on oxygen with wean as tolerated to room air, continue ATC duonebs, PRN albuterol, maintained on IV Zosyn and initially Vancomycin but MRSA screen negative given recent ICU admission, prolonged hospital stay since 04/13/19, noted to be negative therefore discontinued. Maintain HOB, IS parameters w/ negative urine antigens. UA not marked appearing. (5) Dilated Cardiomyopathy, CAD: Continue home aspirin, Coreg, lisinopril, not on statin therapy. (6) Hypertension: Continue home regimen including coreg, lisinopril added back given improved renal function, PRN hydralazine. (7) Hyperlipidemia: Not on regimen, FLP w/ triglyceride 191, total cholesterol 164, LDL 78, VLDL 38, HDL 48. (8) Seizure Disorder: Continue home keppra regimen. (9) Tobacco Abuse: Encouraged cessation, inpatient consultation per RT, NR if desired. (10) GERD: Famotidine. (11) DVT Prophylaxis: SCDs, Lovenox. Code Visit Inpatient E&M: 19708 Subs Hosp L2
[2019-04-17] MEDS: Insulin Lispro 100 UNIT/ML INSULN.PEN SC ×3 (11:53→22:18)
[2019-04-17 12:01] LABS: Bedside Glucose 157 mg/dL (70-110)
[2019-04-17] MEDS: Methocarbamol 750 MG Tablet PO (14:39)
[2019-04-17 17:05] LABS: Bedside Glucose 226 mg/dL (70-110)
[2019-04-17] MEDS: Ipratropium/Albuterol Sulfate 3 ML AMPUL.NEB INHALATION (19:30)
[2019-04-17] MEDS: Mirtazapine 15 MG Tablet 30 MG PO (22:17)
[2019-04-17 22:36] LABS: Bedside Glucose 216 mg/dL (70-110)
[2019-04-18 00:10] LABS: Bedside Glucose 263 mg/dL (70-110)
[2019-04-18 03:10] VITALS: BP 156/80; PULSE 83; RESP 18; TEMP 37.3; O2SAT 100
[2019-04-18 03:17] VITALS: BP 156/80; PULSE 83; RESP 18; TEMP 37.3; O2SAT 98
[2019-04-18] MEDS: Ibuprofen 600 MG Tablet PO ×2 (04:27→11:42)
[2019-04-18 06:26] LABS: Absolute Lymphocyte Count 2.03 X10^3/ul (0.83-4.51); Absolute Neutrophil Count 6.3 X10^3/uL (2.0-7.7); Basophil# 0.01 X10^3/uL; Basophil% 0.1 % (0-1); Eosinophil# 0.38 X10^3/uL; Hematocrit 36.4 % (40-54); Hemoglobin 12.9 g/dl (13.0-16.5); Lymphocyte # 2.03 X10^3/ul (4.0); Lymphocyte % 21.2 % (19-41); Mean Corp Hgb Conc 35.4 g/gl (32-36); Mean Corpuscular Hgb 31.1 pg (27.0-32.0); Mean Corpuscular Volume 87.7 fL (80-94); Mean Platelet Vol. 9.9 fl (6.2-12.0); Monocyte# 0.88 X10^3/uL; Monocyte% 9.2 % (0-10); Neutrophil # 6.26 X10^3/uL (2.7-7.7); Neutrophil % 65.3 % (47-70); Platelet Count 243 K/mm3 (150-450); RBC Distribution Width CV 11.6 % (11.6-14.6); RBC Distribution Width SD 36.4 fl (35.1-43.9); Red Blood Count 4.15 M/mm3 (4.6-6.2); White Blood Count 9.6 K/mm3 (4.4-11.0)
[2019-04-18 06:28] LABS: POSITIVE COUNT NO; POSITIVE DIFFERENTIAL NO; POSITIVE MORPHOLOGY NO
[2019-04-18 06:47] LABS: AST(SGOT) 15 U/L (15-37); Alanine Aminotransfer ALT/SGPT 27 U/L (16-61); Alkaline Phosphatase 67 U/L (45-117); Anion Gap 8 (5-15); BUN 4 mg/dL (7-18); BUN/Creat Ratio 5.8 RATIO (10-20); Calcium,Total 8.2 mg/dL (8.5-10.1); Chloride 104 mmol/L (98-107); Creatinine, Serum 0.69 mg/dL (0.70-1.30); EST Glomerular Filtration Rate 133 mL/min (>60); Est Glom Filt Rate - Afr Amer 161 mL/min (>60); Estimated Creatinine Clearance 151.51 ml/min; Globulin 3.1 g/dL (2.2-4.2); Glucose 124 mg/dL (74-106); Magnesium 1.9 mg/dL (1.6-2.6); Phosphorus 2.2 mg/dL (2.5-4.9); Potassium 3.1 mmol/L (3.5-5.1); Protein, Total 6.1 g/dL (6.4-8.2); Sodium Level 138 mmol/L (136-145)
[2019-04-18 07:01] LABS: Bedside Glucose 122 mg/dL (70-110)
[2019-04-18] MEDS: Lisinopril 2.5 MG Tablet PO (08:01)
[2019-04-18] MEDS: Carvedilol 3.125 MG TABLET PO (08:02)
[2019-04-18] MEDS: Famotidine 20 MG Tablet PO (08:02)
[2019-04-18] MEDS: Multivitamins,Therapeutic Tablet 1 TABLET PO (08:02)
[2019-04-18] MEDS: Enoxaparin 40 MG/0.4 ML Syringe SC (08:02)
[2019-04-18] MEDS: Aspirin E.C. 81 MG Tablet PO (08:04)
[2019-04-18] MEDS: levETIRAcetam 500 MG Tablet PO (08:04)
[2019-04-18 08:05] VITALS: BP 137/87; PULSE 83; RESP 18; TEMP 36.6; O2SAT 95
[2019-04-18] MEDS: 0.9% NaCl Peripheral Flush Adult/Peds IV (08:05)
[2019-04-18 08:19] VITALS: PULSE 70
[2019-04-18 09:41] VITALS: BP 123/71; PULSE 92; RESP 18; TEMP 37.6; O2SAT 98
[2019-04-18 11:26] LABS: Bedside Glucose 320 mg/dL (70-110)
[2019-04-18] MEDS: Insulin Lispro 100 UNIT/ML INSULN.PEN SC (11:35)
[2019-04-18 14:04] VITALS: BP 138/83; PULSE 76; RESP 16; TEMP 36.6; O2SAT 98
[2019-04-18] MEDS: Amox/Clavulanate 875 MG Tablet PO (15:15)
--- NOTE | 2019-04-19 14:54 | CASEMGMT ---
TEODORO LAWLER Discharge Follow-Up Phone Call. Lace: 11 Strata: 3 Discharge Date: 04/18/19 Adm Dx: DKA, ETOH Abuse Attempted discharge follow-up call. No answer. Left message for pt to return call to CM @ [facility] if he has any questions/concerns re: discharge instructions, medications, or follow-up appts. Phone numbers provided. Also left msg advising pt to call his PCP for questions/concerns. Petr MARTINEZ RN CM
== END 2019-04-18 15:51 | disposition home or self-care (01) | DRG 420 ==
LOC: ED 16:38 → ICU 17:02 → MS3 04-16 10:17
PROVIDERS: Admitting Provider Family Medicine; Emergency Provider Emergency Medicine; Family Provider Internal Medicine; PCP Internal Medicine; Visit Provider Family Medicine
DX: E10.10 Type 1 diabetes mellitus with ketoacidosis without coma (principal); J69.0 Pneumonitis due to inhalation of food and vomit; E87.1 Hypo-osmolality and hyponatremia; E87.5 Hyperkalemia; N17.9 Acute kidney failure, unspecified; F10.239 Alcohol dependence with withdrawal, unspecified; G93.41 Metabolic encephalopathy; R00.0 Tachycardia, unspecified; I25.10 Atherosclerotic heart disease of native coronary artery without angina pectoris; D69.6 Thrombocytopenia, unspecified; K02.9 Dental caries, unspecified; I42.0 Dilated cardiomyopathy; I10 Essential (primary) hypertension; E78.5 Hyperlipidemia, unspecified; G40.909 Epilepsy, unspecified, not intractable, without status epilepticus; F17.210 Nicotine dependence, cigarettes, uncomplicated; K76.0 Fatty (change of) liver, not elsewhere classified; E83.39 Other disorders of phosphorus metabolism; Z79.82 Long term (current) use of aspirin; Z79.4 Long term (current) use of insulin; K21.9 Gastro-esophageal reflux disease without esophagitis; Y90.9 Presence of alcohol in blood, level not specified; Z83.3 Family history of diabetes mellitus
CPT/HCPCS: 36415; 36600; 71045; 71046; 80048; 80053; 80061; 80202; 80320; 81001; 82009; 82803; 82962; 83036; 83735; 84100; 85025; 87086; 87449; 87641; 93005; 94640; 99285; J7030; J7040; J7050; A4216; G0480; J3490; J7799

== ENCOUNTER 2019-04-22 08:23 | Inpatient (IN) | payer MEDICARE, MEDICAID, SELFPAY ==
[2019-04-22] VITALS (23 sets, daily range): BP systolic 95–176; BP diastolic 53–142; PULSE 93–135; RESP 17–33; TEMP 36.1–37; O2SAT 100; BMI 23.8; BMI 20.7; BMI 20.8; BMI 21.4
[2019-04-22 08:40] LABS: Bedside Glucose > 500 mg/dL (70-110)
--- NOTE | 2019-04-22 08:42 | EKG12_ITS ---
Test Reason : DKA Blood Pressure : / mmHG Vent. Rate : 247 BPM Atrial Rate : 122 BPM P-R Int : 000 ms QRS Dur : 112 ms QT Int : 178 ms P-R-T Axes : 000 060 228 degrees QTc Int : 361 ms Sinus tachycardia Abnormal ECG Somatic/Motion Artifact Sinus Tachycardia T-Wave Abnormality: Peaked: Consider Hyperkalemia Confirmed by JAIDEN GEORGE, SRAVAN ([id number]), newspaper copy editor JD BEARDEN ([id number]) on 04/24/2019 9:18:21 AM Referred By: RADHA Confirmed By:SRAVAN HWANG MD
--- NOTE | 2019-04-22 08:49 | ED.DCSUM_ITS ---
- ER Visit Summary Date of Service: 04/22/19 Chief Complaint: Weakness History of Present Illness: The patient is a 44 M, type I diabetic recently released from the hospital for DKA was discharged home had decreased p.o. intake now presents with worsening symptoms. Parents brought him in for tachypnea, so me confusion and more distress they also thought he was confused. It is difficult for him to communicate secondary to his tachypnea. Physical Examination: Patient is diaphoretic appears in distress Quite dry mucous membranes, no obvious facial deformity No C-spine tenderness supple neck. Regular rhythm tachycardic, without any obvious murmurs Tachypnea, coarse bilateral breath sounds Abdomen soft and nontender no guarding or rebound No edema Appears anxious Emergency Department Course and Treatment: Initially patient had multiple attempts at an IV this was unsuccessful a right IJ central line was placed by me. IV fluids were given and EKG showed peaked T waves, I was worried about hyperkalemia and I gave bicarb and calcium. He has multiple metabolic abnormality he is found to be in DKA, I will reevaluate him if he improves he will be admitted to the intensive care unit, however I will repeat ABG if this is worsened I will have to intubate. I informed the family he is very critical Disposition: Admit to intensive care unit in critical condition Impression: DKA Critical care time is 30 minutes this does not include any procedures. This note was generated with Gab[employer] dictation software. It may contain incorrect words, spelling, and punctuation that were not noted in review of the chart prior to signing ED Disposition - Plan for ED Patient: Referrals: Moni Cintron MD [Primary Care Provider] -
--- NOTE | 2019-04-22 09:05 | RAD_ITS ---
STUDY: X-RAY CHEST REASON FOR EXAM: Male, 44 years old. Central line placement TECHNIQUE: Single AP portable view of the chest. COMPARISON: Chest x-ray 04/16/2019 FINDINGS: Interval placement of a right IJ central venous catheter with tip overlying the SVC. The lungs are clear and expanded. Previously seen right middle lobe infiltrate has resolved. There is no demonstrated pleural abnormality. Normal size heart. Normal mediastinum and sherry. Normal visualized pulmonary arteries. Normal visualized aortic arch and descending thoracic aorta. Normal visualized thoracic spine. Normal visualized ribs, clavicles, and shoulders. There is no demonstrated abnormality of the visualized soft tissue structures of the upper abdomen. RAD/Chest 1 View (Portable) IMPRESSION: Right IJ central venous catheter. No pneumothorax. Clear lungs. Electronically Signed: Ray Maynard, at 9:24 EDT Tel , Service support ,
[2019-04-22] MEDS: Sodium Bicarbonate 8.4% 50 ML Syringe 50 MEQ IV (09:16)
[2019-04-22] MEDS: 0.9% Normal Saline 1,000 ML 1000 ML IV ×2 (09:17)
[2019-04-22] MEDS: Ondansetron 4 MG/2 ML Vial IV (09:18)
[2019-04-22] MEDS: Calcium Chloride 1 GM/10 ML Syringe IV (09:18)
[2019-04-22 09:32] LABS: Hematocrit 46.1 % (40-54); Hemoglobin 15.9 g/dl (13.0-16.5); Mean Corp Hgb Conc 34.5 g/gl (32-36); Mean Corpuscular Hgb 32.5 pg (27.0-32.0); Mean Corpuscular Volume 94.3 fL (80-94); Mean Platelet Vol. 9.8 fl (6.2-12.0); Platelet Count 663 K/mm3 (150-450); RBC Distribution Width CV 13.1 % (11.6-14.6); RBC Distribution Width SD 44.1 fl (35.1-43.9); Red Blood Count 4.89 M/mm3 (4.6-6.2); White Blood Count 29.4 K/mm3 (4.4-11.0)
[2019-04-22 09:34] LABS: Differential Indicated MANUAL DIFF; POSITIVE COUNT NO; POSITIVE DIFFERENTIAL NO; POSITIVE MORPHOLOGY YES
[2019-04-22 09:50] LABS: ALB/GLOB Ratio 1.2 RATIO (0.9-2.4); AST(SGOT) 12 U/L (15-37); Alanine Aminotransfer ALT/SGPT 27 U/L (16-61); Albumin, Serum 4.4 g/dL (3.2-5.0); Alkaline Phosphatase 125 U/L (45-117); Anion Gap 32 (5-15); BUN 27 mg/dL (7-18); BUN/Creat Ratio 13.6 RATIO (10-20); Calcium,Total 8.8 mg/dL (8.5-10.1); Chloride 88 mmol/L (98-107); Creatinine, Serum 1.98 mg/dL (0.70-1.30); EST Glomerular Filtration Rate 39 mL/min (>60); Est Glom Filt Rate - Afr Amer 48 mL/min (>60); Estimated Creatinine Clearance 47.22 ml/min; Globulin 3.8 g/dL (2.2-4.2); Glucose 590 mg/dL (74-106); Protein, Total 8.2 g/dL (6.4-8.2); Sodium Level 124 mmol/L (136-145)
--- NOTE | 2019-04-22 09:50 | ED.RN ---
LAB CALL WITH CRITICAL RESULT POTASSIUM 6.0, CO2 4, GLUCOSE 590, AND LACTIC ACID 4.2. RESULTS VERBALLY GIVEN TO DR. TREJO AND TEODORO JACKSON.
[2019-04-22 09:51] LABS: Lactic Acid 4.2 mmol/L (0.4-2.0)
[2019-04-22 09:56] LABS: Lymphocyte 10 % (19-41); Metamyelocyte 1 % (0-1); Monocyte 2 % (0-10); Neutrophil-Band 9 % (0-5); Neutrophil-Segmented 78 % (47-70); Total Cells Counted 100 (MANUAL DIFF)
[2019-04-22 09:57] LABS: Platelet Estimate MOD INC (ADEQ); Red Cell Morphology NORM C+C NORMAL (NORM C&C)
--- NOTE | 2019-04-22 09:57 | CPS ---
critical value shown to Dr.Cornici WAITE.
[2019-04-22 09:58] LABS: Absolute Neutrophil Count 25.5 X10^3/uL (2.0-7.7)
[2019-04-22 09:58] LABS: Bacteria 0 SEEN /hpf (None Seen); Mucous, Urine 0 SEEN /hpf (<or=2+); Red Blood Cells-Urine 0 SEEN /hpf (0-5); White Blood Cells 0 SEEN /hpf (0-5)
[2019-04-22 10:02] LABS: Allen Test POS; Blood Gas Specimen Type ART; FI02 21; O2 Delivery Device Room Air; SITE L BRACHIAL
[2019-04-22 10:03] LABS: Time Given 858; pH 7.02 (7.35-7.45)
[2019-04-22 10:04] LABS: Base Excess -29 mmol/L (-2 to +2); Bicarbonate 2.1 mmol/L (22-26); PO2 138 mmHG (75-100); SO2 98 % (95-99); Total Carbon Dioxide < 5 mmol/L
[2019-04-22 10:07] LABS: Color, Urine Yellow (Yellow); Glucose, Dipstick 1000 mg/dl (Normal); Ketone-Dipstick 150 mg/dl (Negative); Leukocyte Esterase-Dipstick Negative /ul (Negative); Nitrite-Dipstick Positive (Negative); Occult Blood-Urine 10 /ul (Negative); Protein-Dipstick 30 mg/dl (Negative); Specific Gravity, Urine 1.025 (1.002-1.030); Urine Bilirubin Dipstick Negative (Negative); Urine Clarity Clear (Clear); Urine Urobilinogen Normal (Normal)
[2019-04-22] MEDS: 0.9% Normal Saline 1,000 ML 999 ML IV (10:08)
[2019-04-22 10:12] LABS: Amorphous Sediment 1+; Fine Granular Cast- Urine 0-5 SEEN /lpf (0-5); Squamous Epithelial Cells - UA 0-5 SEEN /hpf (0-5)
--- NOTE | 2019-04-22 10:25 | HP.PCM_ITS ---
Problem List (1) DKA, type 1 Status: Acute (2) Metabolic encephalopathy Status: Acute (3) ELIZABETH (acute kidney injury) Status: Acute (4) Hyponatremia Status: Acute (5) Hyperkalemia Status: Acute (6) History of alcohol abuse Status: Chronic (7) CAD (coronary artery disease) Status: Chronic Qualifiers: History of Present Illness Date of Admission: 04/22/19 Chief Complaint: AMS The patient is a 44 year old M with an extensive past medical history as above presenting from home with altered mental status. He lives at home with his parents however his suite is fairly private and so they do not know exactly when symptoms began but they brought him in today because of his altered mental status. He is not alert at the moment and therefore history is limited. Apparently he was diagnosed with type 1 diabetes in college and has since then had multiple episodes of DKA. At one point they stated that he was in ICU and his EF was 10%. They have noticed that he has not been eating at all since his discharge about a week ago and they were able to get him a milkshake on and last night they know that he took his insulin because they checked his blood sugar and it was in the 300s. In the ER today he was found to have a leukocytosis of 29.4, a pH of 7.02 with a 2.1 bicarb and a PCO2 of 8. His potassium was 6.0 and a blood sugar of 590 with a lactic acid of 4.2. He received 3 L of IV fluids in the ER as well as started on an insulin drip. Past Medical History Past Medical History (Chronic Problems): Chronic Problems (Last Reviewed 12/10/18 @ 08:24 by Jenifer Germain) Nicotine abuse (Chronic) Thrombocytopenia (Chronic) Diabetes type I (Chronic) History of alcohol abuse (Chronic) CAD (coronary artery disease) (Chronic) Dental caries (Chronic) Medical History: Medical History (Last Reviewed 12/10/18 @ 08:24 by Jenifer Germain) Cardiomyopathy (Suspected) I42.9 CAD (coronary artery disease) (Chronic) I25.10 Acute renal failure N17.9 Alcohol abuse F10.10 Anxiety F41.9 Depression F32.9 Diabetes type 1, controlled E10.9 dx : 08/2001 last exacerbation : dka : 05/13 hypoglycemic episode : never er visit : 05/13 Dilated cardiomyopathy I42.0 Elevated liver enzymes R74.8 H/O sepsis Z86.19 Hyponatremia E87.1 Lactic acidosis E87.2 Left atrial enlargement I51.7 Mycoplasma pneumonia J15.7 NSVT (nonsustained ventricular tachycardia) I47.2 Neuropathy G62.9 Prolonged QT interval R94.31 Seizure disorder G40.909 Steatosis of liver K76.0 Thrombocytopenia D69.6 Allergies zinc Allergy (Intermediate, Verified 04/22/19 08:30) Hives Home Medications: Ambulatory Orders Medication Instructions Recorded Aspirin [Low Dose Aspirin EC] 81 mg PO DAILY 11/14/16 lisinopril 2.5 mg tablet 2.5 mg PO QDAY #90 tab 11/02/17 blood sugar diagnostic strips See Dose Instructions .ROUTE 01/15/18 .MEDSUPPLY #120 ea levetiracetam 500 mg tablet 500 mg PO BID 01/18/18 mirtazapine 15 mg tablet 30 mg PO QHS 01/18/18 Acetaminophen [Tylenol Tablet] 650 mg PO Q4H PRN PRN tab 10/03/18 flash glucose scanning reader See Dose Instructions .ROUTE 12/10/18 .MEDSUPPLY #1 ea flash glucose sensor kit See Dose Instructions .ROUTE 12/10/18 .MEDSUPPLY #1 ea insulin lispro (U- 100) 100 See Rx Instructions SC TID ml 12/10/18 unit/mL subcutaneous pen Acamprosate Calcium 2 tab PO BID 04/13/19 Carvedilol 3.125 mg PO BID 04/13/19 Folic Acid 1 tab PO DAILY 30 Days #30 tablet 04/16/19 Insulin Glargine,Hum.rec.anlog 20 unit SC BID #1 insuln.pen 04/16/19 [Basaglar Kwikpen U-100] Multivitamins,Therapeutic 1 tablet PO DAILYCM #30 tablet 04/16/19 [Multivitamin] Na Biphos/Potassium Phosphate 1 packet PO TID #12 packet 04/16/19 [Neutra-Phos Packet] Thiamine Hydrochloride [Vitamin B1] 100 mg PO DAILYCM #30 tablet 04/16/19 Albuterol IH (ProAir) [Proair Hfa] 1 - 2 puff INHALATION Q4H PRN PRN 04/18/19 #1 inhaler Amoxicillin/Potassium Clav 1 each PO BID #12 tablet 04/18/19 [Augmentin 875-125 Tablet] Guaifenesin [Mucinex] 1,200 mg PO BID #20 tbmp.12hr 04/18/19 Surgical History: Surgical History (Last Reviewed 12/10/18 @ 08:24 by Jenifer Germain) Hx of tonsillectomy Z98.890, Z90.89 Surgical History: noncontributory Smoking Status: Current every day smoker - *Family History Maternal Family History: Family History (Last Reviewed 12/10/18 @ 08:24 by Jenifer Germain) Mother Arthritis Father Diabetes Grandfather Diabetes Grandmother Diabetes History Items: No pertinent history Review of Systems Unable to obtain accurate/complete ROS d/t: AMS VTE Information - Inpt Only VTE Present on Admission: No Objective: General: Alert, Confused, Disoriented HEENT: Atraumatic, EOMI, Normocephalic Oral: Dry Mucosa Neck: Supple, No JVD Lungs: Clear to auscultation, Normal air movement, No rhonchi, No wheeze, No rales Cardiovascular: Tachycardic, Regular Rhythm, Normal S1, Normal S2, No murmurs Abdomen: Soft, Non Tender, Non-Distended, No Hepato-splenomegaly Extremities: No edema, Capillary Refill Less than 3 Seconds Neurological: Neuro grossly intact and able to complete a thorough neuro exam secondary to his altered mental status and confusion - Physical Exam Vital Signs Temp Pulse Resp BP Pulse Ox 97 F L 124 H 28 H 144/81 H 100 04/22/19 08:24 04/22/19 10:08 04/22/19 10:08 04/22/19 10:08 04/22/19 10:08 Oxygen Delivery Method Room Air Weight: 153 lb 0.013 oz Body Mass Index (BMI) 20.7 Finger Stick Blood Glucose 533 Laboratory Tests Past 24 Hrs 04/22/19 04/22/19 04/22/19 08:58 09:06 09:10 WBC 29.4 H RBC 4.89 Hgb 15.9 Hct 46.1 MCV 94.3 H MCH 32.5 H MCHC 34.5 RDW 13.1 RDW Differential 44.1 H Plt Count 663 H MPV 9.8 Neut % (Auto) Not Reportable Absolute Neuts (auto) 25.5 H Absolute Lymphs (auto) 2.90 Total Counted 100 Neutrophils % (Manual) 78 H Band Neutrophils % 9 H Lymphocytes % (Manual) 10 L Monocytes % (Manual) 2 Metamyelocytes % 1 Diff Path Review May foll Platelet Estimate MOD INC RBC Morphology NORM C+C Specimen Type ART Sample Site L BRACHIAL pH 7.02 L* Bicarbonate Actual 2.1 L POC Total CO2 < 5 Base Excess -29 L O2 Saturation 98 O2 % 21 ABG pCO2 8.0 L* ABG pO2 138 H Anurag Test POS O2 Delivery Device Room Air Blood Gas Notified Whom ED Blood Gas Notified Time 858 Sodium Potassium Chloride Carbon Dioxide Anion Gap BUN Creatinine Estim Creat Clear Calc Est GFR (MDRD) Af Amer Est GFR (MDRD) Non-Af BUN/Creatinine Ratio Glucose Lactic Acid 4.2 H* Calcium Total Bilirubin AST ALT Alkaline Phosphatase Troponin I Total Protein Albumin Globulin Albumin/Globulin Ratio Urine Color Urine Clarity Urine pH Ur Specific [place] Urine Protein Urine Glucose (UA) Urine Ketones Urine Occult Blood Urine Nitrite Urine Bilirubin Urine Urobilinogen Ur Leukocyte Esterase Urine RBC Urine WBC Ur Squamous Epith Cells Amorphous Sediment Urine Bacteria Fine Granular Casts Urine Mucus Acetone Level 04/22/19 04/22/19 04/22/19 09:10 09:10 09:30 WBC RBC Hgb Hct MCV MCH MCHC RDW RDW Differential Plt Count MPV Neut % (Auto) Absolute Neuts (auto) Absolute Lymphs (auto) Total Counted Neutrophils % (Manual) Band Neutrophils % Lymphocytes % (Manual) Monocytes % (Manual) Metamyelocytes % Diff Path Review Platelet Estimate RBC Morphology Specimen Type Sample Site pH Bicarbonate Actual POC Total CO2 Base Excess O2 Saturation O2 % ABG pCO2 ABG pO2 Anurag Test O2 Delivery Device Blood Gas Notified Whom Blood Gas Notified Time Sodium 124 L Potassium 6.0 H* Chloride 88 L Carbon Dioxide 4.0 L* Anion Gap 32 H BUN 27 H Creatinine 1.98 H Estim Creat Clear Calc 47.22 Est GFR (MDRD) Af Amer 48 L Est GFR (MDRD) Non-Af 39 L BUN/Creatinine Ratio 13.6 Glucose 590 H* Lactic Acid Calcium 8.8 Total Bilirubin 0.80 AST 12 L ALT 27 Alkaline Phosphatase 125 H Troponin I < 0.015 Total Protein 8.2 Albumin 4.4 Globulin 3.8 Albumin/Globulin Ratio 1.2 Urine Color Yellow Urine Clarity Clear Urine pH 5.0 Ur Specific [place] 1.025 Urine Protein 30 H Urine Glucose (UA) 1000 H Urine Ketones 150 H Urine Occult Blood 10 H Urine Nitrite Positive H Urine Bilirubin Negative Urine Urobilinogen Normal Ur Leukocyte Esterase Negative Urine RBC 0 SEEN Urine WBC 0 SEEN Ur Squamous Epith Cells 0-5 SEEN Amorphous Sediment 1+ Urine Bacteria 0 SEEN Fine Granular Casts 0-5 SEEN Urine Mucus 0 SEEN Acetone Level MODERATE H POC Glucose 04/22/19 08:34 POC Glucose > 500 H* Assessment/Plan All Active Problems (Last Reviewed 12/10/18 @ 08:24 by Jenifer Germain) DKA, type 1 (Acute) Metabolic encephalopathy (Acute) ELIZABETH (acute kidney injury) (Acute) Hyponatremia (Acute) Hyperkalemia (Acute) Sinus tachycardia by electrocardiogram (Acute) DKA (diabetic ketoacidoses) (Acute) 1. Acute metabolic encephalopathy secondary to DKA with metabolic acidosis/type 1 diabetes/ELIZABETH/hyperkalemia/hyponatremia/leukocytosis -We will admit to ICU and initiate DKA protocol with insulin drip -Continue with IV fluid boluses and BMP every 4 hours to monitor potassium which was elevated to 0.0 -He is also severely hyponatremic to 124, bicarb of 4, anion gap of 32, creatinine of 1.98 -Baseline creatinine is less than 1 -Continue with insulin drip -Leukocytosis is 29.4 which is likely secondary to hemoconcentration and stress 2. Alcohol abuse -He has a history of alcohol abuse however they state that he has not been drinking since discharge because he has not been able to walk a mile down to the store -They also requested that we not use Librium if we have to do something for his alcohol because it made him angry the last time 3. HTN/HLD/dilated cardiomyopathy which is alcohol induced -When he is taking p.o. can resume his home medications -Initially his EF was 15% however it has improved with decrease in his alcohol intake -His most recent echocardiogram in 2018 had an EF of 53% with normal diastole 4. Seizure disorder -Currently stable -When taking p.o. can restart Keppra twice daily DVT: Lovenox Code Visit Inpatient E&M: 92667 Init Hosp L3
[2019-04-22 10:42] LABS: Allen Test POS; Blood Gas Specimen Type ART; FI02 21; O2 Delivery Device Room Air; SITE L BRACHIAL; Time Given 1028
[2019-04-22 10:43] LABS: pH 6.98 (7.35-7.45)
[2019-04-22 10:44] LABS: Base Excess -29 mmol/L (-2 to +2); Bicarbonate 2.4 mmol/L (22-26); PO2 133 mmHG (75-100); SO2 97 % (95-99); Total Carbon Dioxide < 5 mmol/L; pCO2 10.5 mmHg (35-45)
[2019-04-22 10:51] LABS: Bedside Glucose > 500 mg/dL (70-110)
[2019-04-22] MEDS: 0.9% Normal Saline 1,000 ML 250 ML IV (10:56)
[2019-04-22 11:00] LABS: Bedside Glucose 499 mg/dL (70-110)
[2019-04-22 11:13] LABS: Hematocrit 41.2 % (40-54); Hemoglobin 13.8 g/dl (13.0-16.5); Mean Corp Hgb Conc 33.5 g/gl (32-36); Mean Corpuscular Hgb 30.8 pg (27.0-32.0); Mean Platelet Vol. 9.8 fl (6.2-12.0); Platelet Count 598 K/mm3 (150-450); RBC Distribution Width CV 12.9 % (11.6-14.6); RBC Distribution Width SD 40.9 fl (35.1-43.9); Red Blood Count 4.48 M/mm3 (4.6-6.2)
[2019-04-22 11:15] LABS: POSITIVE COUNT NO; POSITIVE DIFFERENTIAL NO; POSITIVE MORPHOLOGY YES
[2019-04-22 11:16] LABS: Differential Indicated MANUAL DIFF
[2019-04-22 11:24] LABS: Anion Gap 28 (5-15); BUN 24 mg/dL (7-18); BUN/Creat Ratio 16.7 RATIO (10-20); Calcium,Total 7.9 mg/dL (8.5-10.1); Chloride 102 mmol/L (98-107); Creatinine, Serum 1.44 mg/dL (0.70-1.30); EST Glomerular Filtration Rate 57 mL/min (>60); Est Glom Filt Rate - Afr Amer 69 mL/min (>60); Estimated Creatinine Clearance 64.93 ml/min; Glucose 435 mg/dL (74-106); Sodium Level 134 mmol/L (136-145)
[2019-04-22 11:36] LABS: Lymphocyte 3 % (19-41); Monocyte 4 % (0-10); Neutrophil-Band 6 % (0-5); Neutrophil-Segmented 87 % (47-70); Platelet Estimate MOD INC (ADEQ); Red Cell Morphology NORM C+C NORMAL (NORM C&C); Total Cells Counted 100 (MANUAL DIFF)
[2019-04-22 11:37] LABS: Absolute Lymphocyte Count 0.87 X10^3/ul (0.83-4.51); Lymphocyte # 0.87 X10^3/ul (4.0); Neutrophil # 26.95 X10^3/uL (2.7-7.7)
[2019-04-22 12:16] LABS: Bedside Glucose 402 mg/dL (70-110)
[2019-04-22 13:11] LABS: Bedside Glucose 349 mg/dL (70-110)
[2019-04-22 13:16] LABS: Reflex Lactate? Y
[2019-04-22 14:26] LABS: Bedside Glucose 302 mg/dL (70-110)
[2019-04-22 14:57] LABS: Lactic Acid 1.1 mmol/L (0.4-2.0)
[2019-04-22] MEDS: 0.9% Normal Saline 1,000 ML 175 ML IV (15:03)
[2019-04-22 15:16] LABS: Bedside Glucose 293 mg/dL (70-110)
[2019-04-22 15:40] LABS: Anion Gap 24 (5-15); BUN 21 mg/dL (7-18); BUN/Creat Ratio 16.3 RATIO (10-20); Calcium,Total 7.8 mg/dL (8.5-10.1); Chloride 105 mmol/L (98-107); Creatinine, Serum 1.29 mg/dL (0.70-1.30); EST Glomerular Filtration Rate 65 mL/min (>60); Est Glom Filt Rate - Afr Amer 78 mL/min (>60); Estimated Creatinine Clearance 72.48 ml/min; Glucose 297 mg/dL (74-106); Sodium Level 134 mmol/L (136-145)
[2019-04-22 16:16] LABS: Bedside Glucose 269 mg/dL (70-110)
[2019-04-22 18:06] LABS: Bedside Glucose 249 mg/dL (70-110)
[2019-04-22] MEDS: Dext 5%-0.45% NS 1,000 ML 150 ML IV (18:11)
[2019-04-22 19:28] LABS: Anion Gap 20 (5-15); BUN 18 mg/dL (7-18); BUN/Creat Ratio 14.2 RATIO (10-20); Calcium,Total 7.5 mg/dL (8.5-10.1); Chloride 108 mmol/L (98-107); Creatinine, Serum 1.27 mg/dL (0.70-1.30); EST Glomerular Filtration Rate 66 mL/min (>60); Est Glom Filt Rate - Afr Amer 80 mL/min (>60); Estimated Creatinine Clearance 73.62 ml/min; Glucose 285 mg/dL (74-106); Potassium 4.9 mmol/L (3.5-5.1); Sodium Level 136 mmol/L (136-145)
[2019-04-22 20:21] LABS: Bedside Glucose 306 mg/dL (70-110)
[2019-04-22 21:10] LABS: Bedside Glucose 283 mg/dL (70-110)
[2019-04-22 22:05] LABS: Bedside Glucose 277 mg/dL (70-110)
[2019-04-22 23:06] LABS: Bedside Glucose 255 mg/dL (70-110)
[2019-04-22 23:34] LABS: Anion Gap 13 (5-15); BUN 14 mg/dL (7-18); BUN/Creat Ratio 11.3 RATIO (10-20); Calcium,Total 7.7 mg/dL (8.5-10.1); Chloride 108 mmol/L (98-107); Creatinine, Serum 1.24 mg/dL (0.70-1.30); EST Glomerular Filtration Rate 68 mL/min (>60); Est Glom Filt Rate - Afr Amer 82 mL/min (>60); Glucose 265 mg/dL (74-106); Potassium 3.8 mmol/L (3.5-5.1); Sodium Level 136 mmol/L (136-145)
[2019-04-23] VITALS (18 sets, daily range): BP systolic 108–134; BP diastolic 7–91; PULSE 86–104; RESP 9–16; TEMP 36.8–37.7; O2SAT 97–100
[2019-04-23 00:01] LABS: Bedside Glucose 256 mg/dL (70-110)
[2019-04-23] MEDS: Dext 5%-0.45% NS 1,000 ML 150 ML IV (00:57)
[2019-04-23 01:06] LABS: Bedside Glucose 238 mg/dL (70-110)
[2019-04-23 02:11] LABS: Bedside Glucose 248 mg/dL (70-110)
[2019-04-23 03:11] LABS: Bedside Glucose 192 mg/dL (70-110)
[2019-04-23 03:18] LABS: Absolute Lymphocyte Count 3.26 X10^3/ul (0.83-4.51); Absolute Neutrophil Count 10.3 X10^3/uL (2.0-7.7); Differential Indicated SCAN CRITERIA MET; Eosinophil# 0.03 X10^3/uL; Eosinophils% 0.2 % (0-5); Hematocrit 34.8 % (40-54); Hemoglobin 12.5 g/dl (13.0-16.5); Lymphocyte # 3.26 X10^3/ul (4.0); Lymphocyte % 23.1 % (19-41); Mean Corp Hgb Conc 35.9 g/gl (32-36); Mean Corpuscular Hgb 31.7 pg (27.0-32.0); Mean Corpuscular Volume 88.3 fL (80-94); Mean Platelet Vol. 8.6 fl (6.2-12.0); Monocyte# 0.43 X10^3/uL; Monocyte% 3.1 % (0-10); Neutrophil # 10.33 X10^3/uL (2.7-7.7); Neutrophil % 73.3 % (47-70); POSITIVE COUNT NO; POSITIVE DIFFERENTIAL NO; POSITIVE MORPHOLOGY YES; Platelet Count 427 K/mm3 (150-450); RBC Distribution Width CV 13.1 % (11.6-14.6); RBC Distribution Width SD 41.4 fl (35.1-43.9); Red Blood Count 3.94 M/mm3 (4.6-6.2); White Blood Count 14.1 K/mm3 (4.4-11.0)
[2019-04-23 03:26] LABS: Anion Gap 10 (5-15); BUN 12 mg/dL (7-18); Chloride 109 mmol/L (98-107); EST Glomerular Filtration Rate 70 mL/min (>60); Est Glom Filt Rate - Afr Amer 85 mL/min (>60); Estimated Creatinine Clearance 77.91 ml/min; Glucose 200 mg/dL (74-106); Potassium 3.2 mmol/L (3.5-5.1); Sodium Level 139 mmol/L (136-145)
[2019-04-23 04:08] LABS: Differential Comment SCANNED
[2019-04-23 04:11] LABS: Bedside Glucose 192 mg/dL (70-110)
[2019-04-23 08:45] LABS: Bedside Glucose 178 mg/dL (70-110)
[2019-04-23] MEDS: Insulin Lispro 100 UNIT/ML INSULN.PEN 8 UNIT SC ×3 (08:49→17:51)
[2019-04-23] MEDS: Insulin Lispro 100 UNIT/ML INSULN.PEN SC ×4 (08:50→22:12)
--- NOTE | 2019-04-23 09:31 | CASEMGMT ---
TEODORO LAWLER READMISSION NOTE Previous Admission: 04/13-04/18/19 DX: DKA, pt is Type I diabetes DC Disposition: Home F/U Appointment: 04/23/19. Mother states she cancelled this appointment. Admission: 04/22/19 DX: DKA Intro role of CM to patient in room. Pt is sitting in chair, awake and able to participate in assessment. Pt's speech is slow and deliberate, but follows questions and able to answer. discussed recent admission and diabetic monitoring @ home. Pt admitted he had not checked his blood sugars regularly @ home. Pt lives with his parents. TEODORO LAWLER discussed enlisting his parents to assist with diabetic monitoring @ home. Pt is agreeable and admits he hasn't been compliant with their help in past, but understands he will need to take better responsibility for diabetes management once home. Pt states he is agreeable to have nursing and CM/SW speak with his mother re: assisting at home. -Pt states he has not had ETOH since discharged from hospital. Pt stated he knows he is an alcoholic and will struggle at home. TEODORO LAWLER offered to have SW speak with him regarding this. Pt is agreeable. SW consult placed and Nick MELTON updated. -Parents came to visit. Intro role of CM to them. Discussed need for improved compliance for pt at home. Mother states she is willing to assist pt, but he has not been agreeable in past. Pt stated to her he would accept her assistance. Mother is agreeable to have nursing speak with her re: diabetic needs @ home and will be available to review dc instructions. Gallito MARTINEZ RN AC
--- NOTE | 2019-04-23 09:41 | PCM.PN.HOSP ---
Subjective: More coherent today and is aware of where he is, however his speech is still very slow. He denies any abdominal pain, chest pain, shortness of breath Vitals/I&O's: Vital Signs Temp Pulse Resp BP Pulse Ox 99.8 F H 103 H 16 132/76 H 100 04/23/19 07:00 04/23/19 09:00 04/23/19 09:00 04/23/19 08:00 04/23/19 09:00 Oxygen Delivery Method Room Air Weight: 159 lb 9.835 oz Body Mass Index (BMI) 21.4 Finger Stick Blood Glucose 192 Intake and Output for Last 24 Hours 04/21/19 04/22/19 04/23/19 23:59 23:59 23:59 Intake Total 2540.2 / 2540.2 1679 / 1679 Output Total 3800 / 3800 450 / 450 Balance -1259.8 / -1259.8 1229 / 1229 General: Alert, Oriented x3, Cooperative, No apparent distress HEENT: Atraumatic, PERRLA, EOMI, Normocephalic Oral: Moist Mucosa Neck: Supple, No JVD Lungs: Clear to auscultation, Normal air movement, No rhonchi, No wheeze, No rales Cardiovascular: Regular rate, Regular Rhythm, Normal S1, Normal S2, No murmurs Abdomen: Soft, Non Tender, Non-Distended, No Hepato-splenomegaly Extremities: No edema, Capillary Refill Less than 3 Seconds Skin: No rashes, No breakdown Neurological: Neuro grossly intact, Sensory exam intact to light touch and pain Psych/Mental Status: Normal Affect, Appropriate, - - Speech is slow Laboratory Results 04/22/19 08:58: Specimen Type ART, Sample Site L BRACHIAL, pH 7.02 L*, Bicarbonate Actual 2.1 L, POC Total CO2 < 5, Base Excess -29 L, O2 Saturation 98, O2 % 21, ABG pCO2 8.0 L*, ABG pO2 138 H, Anurag Test POS, O2 Delivery Device Room Air, Blood Gas Notified Whom ED , Blood Gas Notified Time 855 04/22/19 09:06: Lactic Acid 4.2 H* 04/22/19 09:10: Absolute Neuts (auto) 25.5 H, Absolute Lymphs (auto) 2.90, Total Counted 100, Neutrophils % (Manual) 78 H, Band Neutrophils % 9 H, Lymphocytes % (Manual) 10 L, Monocytes % (Manual) 2, Metamyelocytes % 1, Diff Path Review May foll, Platelet Estimate MOD INC, RBC Morphology NORM C+C 04/22/19 09:10: Sodium 124 L, Potassium 6.0 H*, Chloride 88 L, Carbon Dioxide 4.0 L*, Anion Gap 32 H, BUN 27 H, Creatinine 1.98 H, Estim Creat Clear Calc 47.22, Est GFR (MDRD) Af Amer 48 L, Est GFR (MDRD) Non-Af 39 L, BUN/Creatinine Ratio 13.6, Glucose 590 H*, Calcium 8.8, Total Bilirubin 0.80, AST 12 L, ALT 27, Alkaline Phosphatase 125 H, Troponin I < 0.015, Total Protein 8.2, Albumin 4.4, Globulin 3.8, Albumin/Globulin Ratio 1.2 04/22/19 09:10: Acetone Level MODERATE H 04/22/19 09:30: Urine Color Yellow, Urine Clarity Clear, Urine pH 5.0, Ur Specific [place] 1.025, Urine Protein 30 H, Urine Glucose (UA) 1000 H, Urine Ketones 150 H, Urine Occult Blood 10 H, Urine Nitrite Positive H, Urine Bilirubin Negative, Urine Urobilinogen Normal, Ur Leukocyte Esterase Negative, Urine RBC 0 SEEN, Urine WBC 0 SEEN, Ur Squamous Epith Cells 0-5 SEEN, Amorphous Sediment 1+, Urine Bacteria 0 SEEN, Fine Granular Casts 0-5 SEEN, Urine Mucus 0 SEEN 04/22/19 09:53: POC Glucose > 500 H* 04/22/19 10:28: Specimen Type ART, Sample Site L BRACHIAL, pH 6.98 L*, Bicarbonate Actual 2.4 L, POC Total CO2 < 5, Base Excess -29 L, O2 Saturation 97, O2 % 21, ABG pCO2 10.5 L*, ABG pO2 133 H, Anurag Test POS, O2 Delivery Device Room Air, Blood Gas Notified Whom REED GEORGE, Blood Gas Notified Time 1028 04/22/19 10:50: WBC 29.0 H, RBC 4.48 L, Hgb 13.8, Hct 41.2, MCV 92.0, MCH 30.8, MCHC 33.5, RDW 12.9, RDW Differential 40.9, Plt Count 598 H, MPV 9.8, Neut % (Auto) Not Reportable, Absolute Neuts (auto) 27.0 H, Absolute Lymphs (auto) 0.87, Total Counted 100, Neutrophils % (Manual) 87 H, Band Neutrophils % 6 H, Lymphocytes % (Manual) 3 L, Monocytes % (Manual) 4, Platelet Estimate MOD INC, RBC Morphology NORM C+C 04/22/19 10:50: Sodium 134 L, Potassium 5.0, Chloride 102, Carbon Dioxide 4.0 L*, Anion Gap 28 H, BUN 24 H, Creatinine 1.44 H, Estim Creat Clear Calc 64.93, Est GFR (MDRD) Af Amer 69, Est GFR (MDRD) Non-Af 57 L, BUN/Creatinine Ratio 16.7, Glucose 435 H, Calcium 7.9 L 04/22/19 10:54: POC Glucose 499 H* 04/22/19 12:01: POC Glucose 402 H 04/22/19 13:03: POC Glucose 349 H 04/22/19 14:20: Lactic Acid 1.1 04/22/19 14:20: POC Glucose 302 H 04/22/19 14:30: Sodium 134 L, Potassium 5.0, Chloride 105, Carbon Dioxide 5.0 L*, Anion Gap 24 H, BUN 21 H, Creatinine 1.29, Estim Creat Clear Calc 72.48, Est GFR (MDRD) Af Amer 78, Est GFR (MDRD) Non-Af 65, BUN/Creatinine Ratio 16.3, Glucose 297 H, Calcium 7.8 L 04/22/19 15:10: POC Glucose 293 H 04/22/19 16:12: POC Glucose 269 H 04/22/19 17:57: POC Glucose 249 H 04/22/19 19:00: Sodium 136, Potassium 4.9, Chloride 108 H, Carbon Dioxide 8.0 L*, Anion Gap 20 H, BUN 18, Creatinine 1.27, Estim Creat Clear Calc 73.62, Est GFR (MDRD) Af Amer 80, Est GFR (MDRD) Non-Af 66, BUN/Creatinine Ratio 14.2, Glucose 285 H, Calcium 7.5 L 04/22/19 20:12: POC Glucose 306 H 04/22/19 21:07: POC Glucose 283 H 04/22/19 22:03: POC Glucose 277 H 04/22/19 23:00: Sodium 136, Potassium 3.8, Chloride 108 H, Carbon Dioxide 15.0 L, Anion Gap 13, BUN 14, Creatinine 1.24, Estim Creat Clear Calc 75.40, Est GFR (MDRD) Af Amer 82, Est GFR (MDRD) Non-Af 68, BUN/Creatinine Ratio 11.3, Glucose 265 H, Calcium 7.7 L 04/22/19 23:01: POC Glucose 255 H 04/22/19 23:55: POC Glucose 256 H 04/23/19 00:57: POC Glucose 238 H 04/23/19 02:03: POC Glucose 248 H 04/23/19 03:00: Sodium 139, Potassium 3.2 L, Chloride 109 H, Carbon Dioxide 20.0 L, Anion Gap 10, BUN 12, Creatinine 1.20, Estim Creat Clear Calc 77.91, Est GFR (MDRD) Af Amer 85, Est GFR (MDRD) Non-Af 70, BUN/Creatinine Ratio 10.0, Glucose 200 H, Calcium 8.0 L 04/23/19 03:00: WBC 14.1 H, RBC 3.94 L, Hgb 12.5 L, Hct 34.8 L, MCV 88.3, MCH 31.7, MCHC 35.9, RDW 13.1, RDW Differential 41.4, Plt Count 427, MPV 8.6, Immature Gran % (Auto) 0.300, Neut % (Auto) 73.3 H, Lymph % (Auto) 23.1, [place] % (Auto) 3.1, Eos % (Auto) 0.2, Baso % (Auto) 0.0, Absolute Neuts (auto) 10.3 H, Absolute Lymphs (auto) 3.26, Total Counted Not Reportable, Differential Comment SCANNED 04/23/19 03:05: POC Glucose 192 H 04/23/19 04:07: POC Glucose 192 H 04/23/19 08:44: POC Glucose 178 H Current Medications Dextrose (D50w Syringe) 0 gm IV X1 PRN; Protocol PRN Reason: HYPOGLYCEMIA Dextrose (D50w Syringe) 0 gm IV X1 PRN; Protocol PRN Reason: Hypoglycemia Enoxaparin Sodium (Lovenox) 40 mg SC DAILY@1000 OZZIE Glucagon () 1 mg IM .X1 PRN PRN Reason: Hypoglycemia Sodium Chloride () 250 mls @ 15 mls/hr IV .[id number] PRN PRN Reason: SALINE FLUSH Insulin Glargine (Lantus (Bkc)) 20 units SC BID [facility] Last Admin: 04/23/19 04:35 Dose: 20 u Insulin Human Lispro (Humalog Kwikpen (Bkc)) 8 unit SC TIDAC [facility] Last Admin: 04/23/19 08:49 Dose: 8 u Insulin Human Lispro (Humalog Kwikpen (Bkc)) 0 unit SC ACHS [facility]; Protocol Last Admin: 04/23/19 08:50 Dose: 3 u Potassium Chloride (K-Dur) 60 meq PO X1 ONE Stop: 04/23/19 09:41 Sodium Chloride () 5 - 15 ml IV UD PRN PRN Reason: SALINE FLUSH Sodium Chloride () 10 - 40 ml IV UD PRN PRN Reason: MULTILUMEN/HICMAN CATH FLUSH Last Admin: 04/23/19 02:59 Dose: 20 ml Medical Necessity - Tobacco Use Smoking Status: Current every day smoker Assessment/Plan All Active Problems (Last Reviewed 12/10/18 @ 08:24 by Jenifer Germain) DKA, type 1 (Acute) Metabolic encephalopathy (Acute) ELIZABETH (acute kidney injury) (Acute) Hyponatremia (Acute) Hyperkalemia (Acute) Sinus tachycardia by electrocardiogram (Acute) DKA (diabetic ketoacidoses) (Acute) 1. Acute metabolic encephalopathy secondary to DKA with metabolic acidosis/type 1 diabetes/ELIZABETH/hyperkalemia/hyponatremia/leukocytosis -Transfer to PCU -Continue with IV fluids, potassium 3.2 earlier this morning will replace with 60 mEq p.o. x1 -His anion gap has closed and his creatinine has stabilized at 1.2, and his bicarb was 20 -Baseline creatinine is less than 1 -He is off the insulin drip and can revert to his long-acting insulin of 20 units twice daily as well as 8 units 3 times daily with meals -Leukocytosis is 29.4 which is likely secondary to hemoconcentration and stress 2. Alcohol abuse -He has a history of alcohol abuse however they state that he has not been drinking since discharge because he has not been able to walk a mile down to the store -They also requested that we not use Librium if we have to do something for his alcohol because it made him angry the last time 3. HTN/HLD/dilated cardiomyopathy which is alcohol induced -When he is taking p.o. can resume his home medications -Initially his EF was 15% however it has improved with decrease in his alcohol intake -His most recent echocardiogram in 2018 had an EF of 53% with normal diastole 4. Seizure disorder -Currently stable -When taking p.o. can restart Keppra twice daily DVT: Lovenox Code Visit Inpatient E&M: 87394 Subs Hosp L2
--- NOTE | 2019-04-23 09:49 | PN_ITS ---
Subjective: More coherent today and is aware of where he is, however his speech is still very slow. He denies any abdominal pain, chest pain, shortness of breath Vitals/I&O's: Vital Signs Temp Pulse Resp BP Pulse Ox 99.8 F H 103 H 16 132/76 H 100 04/23/19 07:00 04/23/19 09:00 04/23/19 09:00 04/23/19 08:00 04/23/19 09:00 Oxygen Delivery Method Room Air Weight: 159 lb 9.835 oz Body Mass Index (BMI) 21.4 Finger Stick Blood Glucose 192 Intake and Output for Last 24 Hours 04/21/19 04/22/19 04/23/19 23:59 23:59 23:59 Intake Total 2540.2 / 2540.2 1679 / 1679 Output Total 3800 / 3800 450 / 450 Balance -1259.8 / -1259.8 1229 / 1229 General: Alert, Oriented x3, Cooperative, No apparent distress HEENT: Atraumatic, PERRLA, EOMI, Normocephalic Oral: Moist Mucosa Neck: Supple, No JVD Lungs: Clear to auscultation, Normal air movement, No rhonchi, No wheeze, No rales Cardiovascular: Regular rate, Regular Rhythm, Normal S1, Normal S2, No murmurs Abdomen: Soft, Non Tender, Non-Distended, No Hepato-splenomegaly Extremities: No edema, Capillary Refill Less than 3 Seconds Skin: No rashes, No breakdown Neurological: Neuro grossly intact, Sensory exam intact to light touch and pain Psych/Mental Status: Normal Affect, Appropriate, - - Speech is slow Laboratory Results 04/22/19 08:58: Specimen Type ART, Sample Site L BRACHIAL, pH 7.02 L*, Bicarbonate Actual 2.1 L, POC Total CO2 < 5, Base Excess -29 L, O2 Saturation 98, O2 % 21, ABG pCO2 8.0 L*, ABG pO2 138 H, Anurag Test POS, O2 Delivery Device Room Air, Blood Gas Notified Whom ED , Blood Gas Notified Time 850 04/22/19 09:06: Lactic Acid 4.2 H* 04/22/19 09:10: Absolute Neuts (auto) 25.5 H, Absolute Lymphs (auto) 2.90, Total Counted 100, Neutrophils % (Manual) 78 H, Band Neutrophils % 9 H, Lymphocytes % (Manual) 10 L, Monocytes % (Manual) 2, Metamyelocytes % 1, Diff Path Review May foll, Platelet Estimate MOD INC, RBC Morphology NORM C+C 04/22/19 09:10: Sodium 124 L, Potassium 6.0 H*, Chloride 88 L, Carbon Dioxide 4.0 L*, Anion Gap 32 H, BUN 27 H, Creatinine 1.98 H, Estim Creat Clear Calc 47.22, Est GFR (MDRD) Af Amer 48 L, Est GFR (MDRD) Non-Af 39 L, BUN/Creatinine Ratio 13.6, Glucose 590 H*, Calcium 8.8, Total Bilirubin 0.80, AST 12 L, ALT 27, Alkaline Phosphatase 125 H, Troponin I < 0.015, Total Protein 8.2, Albumin 4.4, Globulin 3.8, Albumin/Globulin Ratio 1.2 04/22/19 09:10: Acetone Level MODERATE H 04/22/19 09:30: Urine Color Yellow, Urine Clarity Clear, Urine pH 5.0, Ur Specific [place] 1.025, Urine Protein 30 H, Urine Glucose (UA) 1000 H, Urine Ketones 150 H, Urine Occult Blood 10 H, Urine Nitrite Positive H, Urine Bilirubin Negative, Urine Urobilinogen Normal, Ur Leukocyte Esterase Negative, Urine RBC 0 SEEN, Urine WBC 0 SEEN, Ur Squamous Epith Cells 0-5 SEEN, Amorphous Sediment 1+, Urine Bacteria 0 SEEN, Fine Granular Casts 0-5 SEEN, Urine Mucus 0 SEEN 04/22/19 09:53: POC Glucose > 500 H* 04/22/19 10:28: Specimen Type ART, Sample Site L BRACHIAL, pH 6.98 L*, Bicarbonate Actual 2.4 L, POC Total CO2 < 5, Base Excess -29 L, O2 Saturation 97, O2 % 21, ABG pCO2 10.5 L*, ABG pO2 133 H, Anurag Test POS, O2 Delivery Device Room Air, Blood Gas Notified Whom REED GEORGE, Blood Gas Notified Time 1028 04/22/19 10:50: WBC 29.0 H, RBC 4.48 L, Hgb 13.8, Hct 41.2, MCV 92.0, MCH 30.8, MCHC 33.5, RDW 12.9, RDW Differential 40.9, Plt Count 598 H, MPV 9.8, Neut % (Auto) Not Reportable, Absolute Neuts (auto) 27.0 H, Absolute Lymphs (auto) 0.87, Total Counted 100, Neutrophils % (Manual) 87 H, Band Neutrophils % 6 H, Lymphocytes % (Manual) 3 L, Monocytes % (Manual) 4, Platelet Estimate MOD INC, RBC Morphology NORM C+C 04/22/19 10:50: Sodium 134 L, Potassium 5.0, Chloride 102, Carbon Dioxide 4.0 L* , Anion Gap 28 H, BUN 24 H, Creatinine 1.44 H, Estim Creat Clear Calc 64.93, Est GFR (MDRD) Af Amer 69, Est GFR (MDRD) Non-Af 57 L, BUN/Creatinine Ratio 16.7, Glucose 435 H, Calcium 7.9 L 04/22/19 10:54: POC Glucose 499 H* 04/22/19 12:01: POC Glucose 402 H 04/22/19 13:03: POC Glucose 349 H 04/22/19 14:20: Lactic Acid 1.1 04/22/19 14:20: POC Glucose 302 H 04/22/19 14:30: Sodium 134 L, Potassium 5.0, Chloride 105, Carbon Dioxide 5.0 L* , Anion Gap 24 H, BUN 21 H, Creatinine 1.29, Estim Creat Clear Calc 72.48, Est GFR (MDRD) Af Amer 78, Est GFR (MDRD) Non-Af 65, BUN/Creatinine Ratio 16.3, Glucose 297 H, Calcium 7.8 L 04/22/19 15:10: POC Glucose 293 H 04/22/19 16:12: POC Glucose 269 H 04/22/19 17:57: POC Glucose 249 H 04/22/19 19:00: Sodium 136, Potassium 4.9, Chloride 108 H, Carbon Dioxide 8.0 L* , Anion Gap 20 H, BUN 18, Creatinine 1.27, Estim Creat Clear Calc 73.62, Est GFR (MDRD) Af Amer 80, Est GFR (MDRD) Non-Af 66, BUN/Creatinine Ratio 14.2, Glucose 285 H, Calcium 7.5 L 04/22/19 20:12: POC Glucose 306 H 04/22/19 21:07: POC Glucose 283 H 04/22/19 22:03: POC Glucose 277 H 04/22/19 23:00: Sodium 136, Potassium 3.8, Chloride 108 H, Carbon Dioxide 15.0 L , Anion Gap 13, BUN 14, Creatinine 1.24, Estim Creat Clear Calc 75.40, Est GFR (MDRD) Af Amer 82, Est GFR (MDRD) Non-Af 68, BUN/Creatinine Ratio 11.3, Glucose 265 H, Calcium 7.7 L 04/22/19 23:01: POC Glucose 255 H 04/22/19 23:55: POC Glucose 256 H 04/23/19 00:57: POC Glucose 238 H 04/23/19 02:03: POC Glucose 248 H 04/23/19 03:00: Sodium 139, Potassium 3.2 L, Chloride 109 H, Carbon Dioxide 20.0 L, Anion Gap 10, BUN 12, Creatinine 1.20, Estim Creat Clear Calc 77.91, Est GFR (MDRD) Af Amer 85, Est GFR (MDRD) Non-Af 70, BUN/Creatinine Ratio 10.0, Glucose 200 H, Calcium 8.0 L 04/23/19 03:00: WBC 14.1 H, RBC 3.94 L, Hgb 12.5 L, Hct 34.8 L, MCV 88.3, MCH 31.7, MCHC 35.9, RDW 13.1, RDW Differential 41.4, Plt Count 427, MPV 8.6, Immature Gran % (Auto) 0.300, Neut % (Auto) 73.3 H, Lymph % (Auto) 23.1, [place] % (Auto) 3.1, Eos % (Auto) 0.2, Baso % (Auto) 0.0, Absolute Neuts (auto) 10.3 H, Absolute Lymphs (auto) 3.26, Total Counted Not Reportable, Differential Comment SCANNED 04/23/19 03:05: POC Glucose 192 H 04/23/19 04:07: POC Glucose 192 H 04/23/19 08:44: POC Glucose 178 H Current Medications Dextrose (D50w Syringe) 0 gm IV X1 PRN; Protocol PRN Reason: HYPOGLYCEMIA Dextrose (D50w Syringe) 0 gm IV X1 PRN; Protocol PRN Reason: Hypoglycemia Enoxaparin Sodium (Lovenox) 40 mg SC DAILY@1000 OZZIE Glucagon () 1 mg IM .X1 PRN PRN Reason: Hypoglycemia Sodium Chloride () 250 mls @ 15 mls/hr IV .[id number] PRN PRN Reason: SALINE FLUSH Insulin Glargine (Lantus (Bkc)) 20 units SC BID [facility] Last Admin: 04/23/19 04:35 Dose: 20 u Insulin Human Lispro (Humalog Kwikpen (Bkc)) 8 unit SC TIDAC [facility] Last Admin: 04/23/19 08:49 Dose: 8 u Insulin Human Lispro (Humalog Kwikpen (Bkc)) 0 unit SC ACHS [facility]; Protocol Last Admin: 04/23/19 08:50 Dose: 3 u Potassium Chloride (K-Dur) 60 meq PO X1 ONE Stop: 04/23/19 09:41 Sodium Chloride () 5 - 15 ml IV UD PRN PRN Reason: SALINE FLUSH Sodium Chloride () 10 - 40 ml IV UD PRN PRN Reason: MULTILUMEN/HICMAN CATH FLUSH Last Admin: 04/23/19 02:59 Dose: 20 ml Medical Necessity - Tobacco Use Smoking Status: Current every day smoker Assessment/Plan All Active Problems (Last Reviewed 12/10/18 @ 08:24 by Jenifer Germain) DKA, type 1 (Acute) Metabolic encephalopathy (Acute) ELIZABETH (acute kidney injury) (Acute) Hyponatremia (Acute) Hyperkalemia (Acute) Sinus tachycardia by electrocardiogram (Acute) DKA (diabetic ketoacidoses) (Acute) 1. Acute metabolic encephalopathy secondary to DKA with metabolic acidosis/type 1 diabetes/ELIZABETH/hyperkalemia/hyponatremia/leukocytosis -Transfer to PCU -Continue with IV fluids, potassium 3.2 earlier this morning will replace with 60 mEq p.o. x1 -His anion gap has closed and his creatinine has stabilized at 1.2, and his bicarb was 20 -Baseline creatinine is less than 1 -He is off the insulin drip and can revert to his long-acting insulin of 20 units twice daily as well as 8 units 3 times daily with meals -Leukocytosis is 29.4 which is likely secondary to hemoconcentration and stress 2. Alcohol abuse -He has a history of alcohol abuse however they state that he has not been drinking since discharge because he has not been able to walk a mile down to the store -They also requested that we not use Librium if we have to do something for his alcohol because it made him angry the last time 3. HTN/HLD/dilated cardiomyopathy which is alcohol induced -When he is taking p.o. can resume his home medications -Initially his EF was 15% however it has improved with decrease in his alcohol intake -His most recent echocardiogram in 2018 had an EF of 53% with normal diastole 4. Seizure disorder -Currently stable -When taking p.o. can restart Keppra twice daily DVT: Lovenox Code Visit Inpatient E&M: 54340 Subs Hosp L2
[2019-04-23] MEDS: Enoxaparin 40 MG/0.4 ML Syringe SC (10:53)
[2019-04-23] MEDS: levETIRAcetam 500 MG Tablet PO ×2 (10:56→22:05)
[2019-04-23] MEDS: Carvedilol 3.125 MG TABLET PO ×2 (10:56→22:04)
[2019-04-23] MEDS: Aspirin E.C. 81 MG Tablet PO (10:57)
[2019-04-23] MEDS: Folic Acid 1 MG Tablet PO (10:57)
[2019-04-23] MEDS: Thiamine Hydrochloride 100 MG Tablet PO (10:58)
[2019-04-23 13:10] LABS: Bedside Glucose 200 mg/dL (70-110)
--- NOTE | 2019-04-23 13:15 | CASEMGMT ---
SOCIAL WORK REFERRAL DATE: 04/23/19 INFORMANT: [employer] REASON FOR REFERRAL: RESOURCES D/T HX OF ALCOHOL ABUSE MET WITH PATIENT IN ROOM. INTRODUCED ROLE AND REASON FOR REFERRAL. PATIENT ADMITS TO HX OF ALCOHOL ABUSE AND STATES HAS NOT DRANK SINCE LAST ADMISSION. PATIENT STATES DOES NOT KNOW IF HE WISHES TO QUIT DRINKING TOTALLY. PATIENT REPORTS HE DOES NEED TO CUT BACK. PATIENT WAS PROVIDED WITH RESOURCES TO ASSIST AND THIS WORKER'S CONTACT INFORMATION FOR ANY FURTHER NEEDS. PATIENT STATES DOES FOLLOW WITH THE COUNSELING CENTER IN [facility] D/T HX OF DEPRESSION AND ANXIETY. PATIENT STATES WILL CONTINUE TO FOLLOW WITH THEM. PATIENT REPORTS PLAN FOR D/C IS HOME WITH FAMILY BEFORE. DISCUSSED PATIENT'S MOTHER ASSISTING WITH DIABETIC NEEDS. PATIENT STATES MOTHER WAS IN EARLIER THIS DAY AND NEEDS WERE REVIEWED. PATIENT DENIES ANY FURTHER NEEDS AT THIS TIME. PLAN: HOME WITH ASSISTANCE FROM FAMILY. RESOURCES PROVIDED.
[2019-04-23] MEDS: Na Biphos/Potassium Phosphate PACKET 1 PACKET PO ×2 (14:37→22:04)
[2019-04-23] MEDS: Acetaminophen 325 MG Tablet 650 MG PO (14:38)
[2019-04-23 14:41] LABS: Pathologist Review Reviewed
[2019-04-23 18:00] LABS: Bedside Glucose 188 mg/dL (70-110)
[2019-04-23] MEDS: Mirtazapine 15 MG Tablet 30 MG PO (22:04)
[2019-04-23] MEDS: Atorvastatin Calcium 20 MG Tablet PO (22:04)
[2019-04-23 22:26] LABS: Bedside Glucose 243 mg/dL (70-110)
[2019-04-24] VITALS (9 sets, daily range): BP systolic 120–151; BP diastolic 68–86; PULSE 81–88; RESP 14–18; TEMP 36.9–37.3; O2SAT 97–99
[2019-04-24] MEDS: 0.9% NaCl Peripheral Flush Adult/Peds IV (04:02)
[2019-04-24 05:35] LABS: Absolute Lymphocyte Count 2.03 X10^3/ul (0.83-4.51); Absolute Neutrophil Count 3.3 X10^3/uL (2.0-7.7); Basophil# 0.01 X10^3/uL; Basophil% 0.2 % (0-1); Eosinophil# 0.08 X10^3/uL; Eosinophils% 1.3 % (0-5); Hematocrit 33.3 % (40-54); Hemoglobin 11.9 g/dl (13.0-16.5); Lymphocyte # 2.03 X10^3/ul (4.0); Lymphocyte % 32.4 % (19-41); Mean Corp Hgb Conc 35.7 g/gl (32-36); Mean Corpuscular Hgb 31.3 pg (27.0-32.0); Mean Corpuscular Volume 87.6 fL (80-94); Mean Platelet Vol. 8.9 fl (6.2-12.0); Monocyte# 0.87 X10^3/uL; Monocyte% 13.9 % (0-10); Neutrophil # 3.26 X10^3/uL (2.7-7.7); Neutrophil % 51.9 % (47-70); Platelet Count 397 K/mm3 (150-450); RBC Distribution Width CV 13.1 % (11.6-14.6); RBC Distribution Width SD 41.5 fl (35.1-43.9); White Blood Count 6.3 K/mm3 (4.4-11.0)
[2019-04-24 05:36] LABS: POSITIVE COUNT NO; POSITIVE DIFFERENTIAL NO; POSITIVE MORPHOLOGY NO
[2019-04-24 06:00] LABS: Anion Gap 9 (5-15); BUN 5 mg/dL (7-18); BUN/Creat Ratio 6.9 RATIO (10-20); Calcium,Total 8.5 mg/dL (8.5-10.1); Chloride 105 mmol/L (98-107); Creatinine, Serum 0.72 mg/dL (0.70-1.30); EST Glomerular Filtration Rate 126 mL/min (>60); Est Glom Filt Rate - Afr Amer 153 mL/min (>60); Estimated Creatinine Clearance 132.85 ml/min; Glucose 125 mg/dL (74-106); Magnesium 1.8 mg/dL (1.6-2.6); Sodium Level 141 mmol/L (136-145)
[2019-04-24] MEDS: Na Biphos/Potassium Phosphate PACKET 1 PACKET PO ×2 (06:27→13:00)
[2019-04-24 06:56] LABS: Bedside Glucose 123 mg/dL (70-110)
[2019-04-24] MEDS: Insulin Lispro 100 UNIT/ML INSULN.PEN 8 UNIT SC ×2 (08:22→16:55)
[2019-04-24] MEDS: Enoxaparin 40 MG/0.4 ML Syringe SC (08:23)
[2019-04-24] MEDS: Multivitamins,Therapeutic Tablet 1 TABLET PO (08:28)
[2019-04-24] MEDS: Folic Acid 1 MG Tablet PO (08:28)
[2019-04-24] MEDS: Thiamine Hydrochloride 100 MG Tablet PO (08:28)
[2019-04-24] MEDS: levETIRAcetam 500 MG Tablet PO (08:28)
[2019-04-24] MEDS: Carvedilol 3.125 MG TABLET PO (08:28)
[2019-04-24] MEDS: Aspirin E.C. 81 MG Tablet PO (08:28)
[2019-04-24] MEDS: Acetaminophen 325 MG Tablet 650 MG PO (09:18)
--- NOTE | 2019-04-24 09:52 | PCM.DC ---
You will use the following diet at home:: Calorie/Carbohydrate Controlled (specify 1200, 1400, etc) - 1800 Your food should be the consistency of: Regular Your liquids should be the consistency of: Regular/Thin Discharge Activity: Return to Normal Activity, No Restrictions Call your doctor if you observe: Fever of 101 or Higher, Shortness of breath, Dizziness, Fainting spells, Swelling in the ankles, Chest pain, Increased palpitations (irregular heartbeat) Additional Instructions: Obtain a BMP with your PCP to monitor your potassium and renal function in 3-5 days. Also you will need a referral to an Audit Senior Associate to further manage your insulin. Allergies/Adverse Reactions: Allergies zinc Allergy (Intermediate, Verified 04/22/19 08:30) Hives Medications to take at Discharge Aspirin [Low Dose Aspirin EC] 81 mg PO DAILY 11/14/16 lisinopril 2.5 mg tablet 2.5 mg PO QDAY #90 tab 11/02/17 blood sugar diagnostic strips See Dose Instructions .ROUTE .MEDSUPPLY #120 ea 01/15/18 levetiracetam 500 mg tablet 500 mg PO BID 01/18/18 mirtazapine 15 mg tablet 30 mg PO QHS 01/18/18 Acetaminophen [Tylenol Tablet] 650 mg PO Q4H PRN PRN tab 10/03/18 flash glucose scanning reader See Dose Instructions .ROUTE .MEDSUPPLY #1 ea 12/10/18 flash glucose sensor kit See Dose Instructions .ROUTE .MEDSUPPLY #1 ea 12/10/18 Acamprosate Calcium 2 tab PO BID 04/13/19 Carvedilol 3.125 mg PO BID 04/13/19 Folic Acid 1 tab PO DAILY 30 Days #30 tablet 04/16/19 Insulin Glargine,Hum.rec.anlog [Basaglar Kwikpen U-100] 20 unit SC BID #1 insuln.pen 04/16/19 Na Biphos/Potassium Phosphate [Neutra-Phos Packet] 1 packet PO TID #12 packet 04/16/19 Albuterol IH (ProAir) [Proair Hfa] 1 - 2 puff INHALATION Q4H PRN PRN #1 inhaler 04/18/19 Guaifenesin [Mucinex] 1,200 mg PO BID #20 tbmp.12hr 04/18/19 Amoxicillin/Potassium Clav [Augmentin 875-125 Tablet] 1 each PO BID 04/22/19 Atorvastatin Calcium 20 mg PO DAILY 04/22/19 Multivitamins,Therapeutic [Multivitamin] 1 tablet PO DAILYCM 04/22/19 Thiamine Hydrochloride [Vitamin B1] 100 mg PO DAILYCM 04/22/19 Insulin Lispro [Humalog Kwikpen] See Rx Instructions SC TID #0 ml 04/24/19 Primary Care Physician: Moni Cintron MD [Primary Care Provider] - Please follow up with your Primary Care Physician in: 3-5 days Test Results: Test results from this visit will be discussed in further detail at your follow-up appointment, if applicable.
--- NOTE | 2019-04-24 10:02 | DS.PCM_ITS ---
Discharge Date and Diagnosis Date of Admission: 04/22/19 Date of Discharge: 04/24/19 - Secondary Discharge Diagnosis Chronic Problems (Last Reviewed 12/10/18 @ 08:24 by Jenifer Germain) Nicotine abuse (Chronic) Thrombocytopenia (Chronic) Diabetes type I (Chronic) History of alcohol abuse (Chronic) CAD (coronary artery disease) (Chronic) Dental caries (Chronic) Hospital Course and Treatment Imaging Results: None Consults: None Operations: None Procedures: None Summary of Care Provided: Per HPI: The patient is a 44 year old M with an extensive past medical history as above presenting from home with altered mental status. He lives at home with his parents however his suite is fairly private and so they do not know exactly when symptoms began but they brought him in today because of his altered mental status. He is not alert at the moment and therefore history is limited. Apparently he was diagnosed with type 1 diabetes in college and has since then had multiple episodes of DKA. At one point they stated that he was in ICU and his EF was 10%. They have noticed that he has not been eating at all since his discharge about a week ago and they were able to get him a milkshake on and last night they know that he took his insulin because they checked his blood sugar and it was in the 300s. In the ER today he was found to have a leukocytosis of 29.4, a pH of 7.02 with a 2.1 bicarb and a PCO2 of 8. His potassium was 6.0 and a blood sugar of 590 with a lactic acid of 4.2. He received 3 L of IV fluids in the ER as well as started on an insulin drip. Hospital Course: 1. Acute metabolic encephalopathy secondary to DKA with metabolic acidosis/type 1 diabetes/ELIZABETH/hyperkal emia/hyponatremia/leukocytosis/hypophosphatemia/ofyyzapfgdk-05-jney-old male with history of type 1 diabetes who struggles with management at home presented for the second time with DKA. He was significantly acidotic to less than 7 on an ABG and his bicarb on admission was 4. He does recover very quickly secondary to his ability to compensate from a respiratory standpoint. He was transitioned to a diet and placed back on his home insulin of a sliding scale as well as 20 units of long-acting insulin twice daily. He was also placed on 8 units 3 times daily with meals and has done very well. Today on discharge his blood sugar is 123. I did discuss with him the necessity of finding an concrete paving machine operator and focusing on eating only 3 meals a day and having very limited to no snacking in between, and in attempt to make his blood sugar management easier. Of note on the day of discharge his hyponatremia had resolved however his potassium was low when he was given 20 mEq of oral p otassium as well as 30 mmol of potassium phosphate IV prior to discharge. He will need to follow-up with his primary care doctor in 3 to 5 days to obtain a BMP to monitor his potassium. He does take Neutra-Phos packets 3 times a day as an outpatient and he was encouraged to continue. His leukocytosis has also resolved. I had extensive discussion today with both him and his mother who expressed understanding and agreement with the plan. 2. HTN/HLD/dilated cardiomyopathy secondary to alcoholism-his most recent EF in 2018 was 53% however prior to this he had gone all the way down to an EF of 15%. He will continue with his home medications of Coreg, lisinopril, aspirin, and Lipitor. Given his alcoholism he will also continue with his thiamine and folic acid. 3. His other medical diagnoses were evaluated and his home medications were continued where appropriate. Objective: General: Alert, Oriented x3, Cooperative, No apparent distress HEENT: Atraumatic, PERRLA, EOMI, Normocephalic Oral: Moist Mucosa Neck: Supple, No JVD Lungs: Clear to auscultation, Normal air movement, No rhonchi, No wheeze, No rales Cardiovascular: Regular rate, Regular Rhythm, Normal S1, Normal S2, No murmurs Abdomen: Soft, Non Tender, Non-Distended, No Hepato-splenomegaly Extremities: No edema, Capillary Refill Less than 3 Seconds Skin: No rashes, No breakdown Neurological: Neuro grossly intact, Sensory exam intact to light touch and pain Psych/Mental Status: Normal Affect, Appropriate, - Physical Exam Vital Signs Temp Pulse Resp BP Pulse Ox 98.7 F 87 16 146/86 H 99 04/24/19 08:26 04/24/19 08:26 04/24/19 08:26 04/24/19 08:26 04/24/19 08:26 Oxygen Delivery Method Room Air Weight: 156 lb 8.451 oz Body Mass Index (BMI) 21.4 Finger Stick Blood Glucose 192 Intake and Output for Last 24 Hours 04/22/19 04/23/19 04/24/19 23:59 23:59 23:59 Intake Total 2540.2 / 2540.2 4599 / 4599 120 / 120 Output Total 3800 / 3800 450 / 450 Balance -1259.8 / -1259.8 4149 / 4149 120 / 120 Laboratory Tests Past 24 Hrs 04/22/19 04/24/19 04/24/19 09:10 05:18 05:18 WBC 6.3 RBC 3.80 L Hgb 11.9 L Hct 33.3 L MCV 87.6 MCH 31.3 MCHC 35.7 RDW 13.1 RDW Differential 41.5 Plt Count 397 MPV 8.9 Immature Gran % (Auto) 0.300 Neut % (Auto) 51.9 Lymph % (Auto) 32.4 [place] % (Auto) 13.9 H Eos % (Auto) 1.3 Baso % (Auto) 0.2 Absolute Neuts (auto) 3.3 Absolute Lymphs (auto) 2.03 Total Counted Not Reportable Diff Path Review Reviewed Sodium 141 Potassium 3.0 L Chloride 105 Carbon Dioxide 27.0 Anion Gap 9 BUN 5 L Creatinine 0.72 Estim Creat Clear Calc 132.85 Est GFR (MDRD) Af Amer 153 Est GFR (MDRD) Non-Af 126 BUN/Creatinine Ratio 6.9 L Glucose 125 H Calcium 8.5 Phosphorus 2.0 L Magnesium 1.8 POC Glucose 04/24/19 04/23/19 04/23/19 06:29 22:00 17:50 POC Glucose 123 H 243 H 188 H 04/23/19 13:05 POC Glucose 200 H Discharge Activity: Return to Normal Activity, No Restrictions Call your doctor if you observe: Fever of 101 or Higher, Shortness of breath, Dizziness, Fainting spells, Swelling in the ankles, Chest pain, Increased palpitations (irregular heartbeat) Home Medications: Medications to take at Discharge Aspirin [Low Dose Aspirin EC] 81 mg PO DAILY 11/14/16 lisinopril 2.5 mg tablet 2.5 mg PO QDAY #90 tab 11/02/17 blood sugar diagnostic strips See Dose Instructions .ROUTE .MEDSUPPLY #120 ea 01/15/18 levetiracetam 500 mg tablet 500 mg PO BID 01/18/18 mirtazapine 15 mg tablet 30 mg PO QHS 01/18/18 Acetaminophen [Tylenol Tablet] 650 mg PO Q4H PRN PRN tab 10/03/18 flash glucose scanning reader See Dose Instructions .ROUTE .MEDSUPPLY #1 ea 12/10/18 flash glucose sensor kit See Dose Instructions .ROUTE .MEDSUPPLY #1 ea 12/10/18 Acamprosate Calcium 2 tab PO BID 04/13/19 Carvedilol 3.125 mg PO BID 04/13/19 Folic Acid 1 tab PO DAILY 30 Days #30 tablet 04/16/19 Insulin Glargine,Hum.rec.anlog [Basaglar Kwikpen U-100] 20 unit SC BID #1 insuln.pen 04/16/19 Na Biphos/Potassium Phosphate [Neutra-Phos Packet] 1 packet PO TID #12 packet 04/16/19 Albuterol IH (ProAir) [Proair Hfa] 1 - 2 puff INHALATION Q4H PRN PRN #1 inhaler 04/18/19 Guaifenesin [Mucinex] 1,200 mg PO BID #20 tbmp.12hr 04/18/19 Amoxicillin/Potassium Clav [Augmentin 875-125 Tablet] 1 each PO BID 04/22/19 Atorvastatin Calcium 20 mg PO DAILY 04/22/19 Multivitamins,Therapeutic [Multivitamin] 1 tablet PO DAILYCM 04/22/19 Thiamine Hydrochloride [Vitamin B1] 100 mg PO DAILYCM 04/22/19 Insulin Lispro [Humalog Kwikpen] See Rx Instructions SC TID #0 ml 04/24/19 Primary Care Physician: Moni Cintron MD [Primary Care Provider] - Please follow up with your Primary Care Physician in: 3-5 days Disposition: Home Minutes spent on discharge:: 35 Patient Condition:: Stable Medical Necessity - Tobacco Use Smoking Status: Current every day smoker Meaningful Use Info Meaningful Use Diagnoses (Choose all that apply): None applicable Code Visit Inpatient E&M: 39859 Disch Hosp
[2019-04-24 12:06] LABS: Bedside Glucose 81 mg/dL (70-110)
[2019-04-24 14:56] LABS: Bedside Glucose 250 mg/dL (70-110)
[2019-04-24] MEDS: Insulin Lispro 100 UNIT/ML INSULN.PEN SC (16:56)
[2019-04-24 17:00] LABS: Bedside Glucose 294 mg/dL (70-110)
--- NOTE | 2019-04-25 15:14 | CASEMGMT ---
[facility] CM DC PHONE CALL DC DATE: 04/24/19 DC Disposition: Home LACE/STRATA: 09/29 Attempted call to patient. No answer, and no machine pickup. Gallito DAVISN RN ACM
== END 2019-04-24 18:51 | disposition home or self-care (01) | DRG 420 ==
LOC: ED 08:55 → ICU 10:25 → PCU 04-24 08:39
PROVIDERS: Admitting Provider Family Medicine; Emergency Provider Emergency Medicine; Family Provider Internal Medicine; PCP Internal Medicine; Visit Provider Family Medicine
DX: E10.10 Type 1 diabetes mellitus with ketoacidosis without coma (principal); G93.41 Metabolic encephalopathy; N17.9 Acute kidney failure, unspecified; E87.1 Hypo-osmolality and hyponatremia; I42.0 Dilated cardiomyopathy; I42.6 Alcoholic cardiomyopathy; F10.188 Alcohol abuse with other alcohol-induced disorder; Z79.4 Long term (current) use of insulin; I25.10 Atherosclerotic heart disease of native coronary artery without angina pectoris; I10 Essential (primary) hypertension; F41.9 Anxiety disorder, unspecified; F32.9 Major depressive disorder, single episode, unspecified; G40.909 Epilepsy, unspecified, not intractable, without status epilepticus; E78.5 Hyperlipidemia, unspecified; F17.200 Nicotine dependence, unspecified, uncomplicated; D69.6 Thrombocytopenia, unspecified; K02.9 Dental caries, unspecified; Z86.19 Personal history of other infectious and parasitic diseases
CPT/HCPCS: 36556; 36600; 51702; 71045; 80048; 80053; 81001; 82009; 82803; 82962; 83605; 83735; 84100; 84484; 85025; 87040; 93005; 97161; 97165; 97530; 97803; 99284; J7030; J7050; A4216; J2405; J7799

== ENCOUNTER 2019-05-13 23:08 | Inpatient (IN) | payer MEDICARE, MEDICAID, SELFPAY ==
[2019-04-30 09:17] VITALS: BMI 21.2
[2019-05-13 23:09] VITALS: BP 129/57; PULSE 124; RESP 28; TEMP 37.6; O2SAT 100; BMI 19.8
[2019-05-13 23:21] LABS: Bedside Glucose > 500 mg/dL (70-110)
--- NOTE | 2019-05-13 23:23 | CT_ITS ---
STUDY: CT BRAIN WITHOUT CONTRAST REASON FOR EXAM: Male, 44 years old. Status post fall with abrasion above the left eye. Multilevel consciousness. Confusion. Elevated blood sugar. RADIATION DOSAGE (If Supplied By Facility): CTDIvol = ( 44.99 ) mGy, DLP = ( 829.85 ) mGycm TECHNIQUE: Transaxial CT imaging of the brain was performed without administration of intravenous contrast material. Individualized dose optimization techniques were used for this CT. COMPARISON: CT scan brain 10/14/2016. FINDINGS: Normal soft tissue structures. Normal calvarium. There is mild dilatation of the lateral and third ventricles, with increased ventricular size compared to the 2016 exam. Normal size extra-axial spaces for the patient's age. Normal white matter tracts of the cerebral hemispheres. Normal basal ganglia and thalami. Normal brainstem. Normal cerebellum. There is no intracranial hemorrhage. There are no findings of an acute ischemic infarction. There is minimal mucoperiosteal thickening in the right maxillary sinus consistent with chronic disease. There is no evidence for acute sinusitis. CT/Brain/Head without Contrast IMPRESSION: Mild hydrocephalus, which was not present in 2016. I suspect that this represents communicating hydrocephalus, possibly due to central atrophy or normal pressure hydrocephalus, however, would recommend MRI for confirmation. No other evidence for significant abnormalities.. Electronically Signed: Placido Petersen MD at 0:15 EDT , Service support ,
--- NOTE | 2019-05-13 23:23 | EKG12_ITS ---
Test Reason : Blood Pressure : / mmHG Vent. Rate : 131 BPM Atrial Rate : 131 BPM P-R Int : 124 ms QRS Dur : 082 ms QT Int : 322 ms P-R-T Axes : 073 045 069 degrees QTc Int : 475 ms Sinus tachycardia Possible Left atrial enlargement T- wave abnormality: Peaked; consider Hyperkalemia Borderline ECG Confirmed by JAIDEN GEORGE, SRAVAN ([id number]), engineering inspection assistant KRUNAL DOOLEY ([id number]) on 05/15/2019 12:09:58 PM Referred By: JODI Confirmed By:SRAVAN HWANG MD
--- NOTE | 2019-05-13 23:25 | ED.VISSUMM ---
- ER Visit Summary Date of Service: 05/13/19 Chief Complaint: Increased glucose, tachycardia and confusion History of Present Illness: The patient is a 44 M who presents with the above symptoms. Family noted that he was getting more confused at home. He has a type I diabetic and has been in DKA in the past. He is an alcoholic and mom states that he has not been eating well but he has been drinking. She also believes that he is not taking his insulin. His glucose was checked by EMS and it was over 400. He states that he fell last night and hit his head. Denies LOC. He does admit to some nausea and vomiting today. Physical Examination: Vital signs reviewed. Patient in no distress but does have some slight Kussmaul breathing. Heart rate 131. HEENT exam shows some facial abrasions over the bridge of the nose and forehead. Neck is supple without any injury. Heart is tachycardic and regular without murmurs. Lungs are clear. Abdomen soft nontender. Extremities have no edema. He is alert and oriented x3 currently. He is neurologic exam is normal otherwise. Test Results: White blood cell count 29.2, sodium 129, potassium 5.6, chloride 89, bicarb 7, anion gap 33. His glucose is 729, creatinine 1.88. He has large ketones in his blood. EKG was sinus rhythm with rate of 131. He has slightly peaked T waves. Alcohol level is negative. CAT scan of the head and chest x-ray per my interpretation revealed no evidence of any acute findings. Radiologist interpretation still pending. Urinalysis and VBG for pH are also pending. Emergency Department Course and Treatment: Patient was given multiple liters of fluids. He was started on insulin drip for DKA. Family was concerned that he has not been taking his insulin at home which is likely the case. Patient was discussed with the notes for admission to ICU Treatment Plan: [] Disposition: Admit to the ICU on insulin drip Impression: Diabetic ketoacidosis This note was generated with [employer] dictation software. It may contain incorrect words, spelling, and punctuation that were not noted in review of the chart prior to signing ED Disposition - Plan for ED Patient: Referrals: Moni Cintron MD [Primary Care Provider] -
[2019-05-13] MEDS: 0.9% Normal Saline 1,000 ML 1000 ML IV ×2 (23:35→23:51)
[2019-05-13 23:45] LABS: Absolute Lymphocyte Count 1.02 X10^3/ul (0.83-4.51); Absolute Neutrophil Count 24.9 X10^3/uL (2.0-7.7); Basophil# 0.03 X10^3/uL; Basophil% 0.1 % (0-1); Differential Indicated SCAN CRITERIA MET; Eosinophil# 0.01 X10^3/uL; Hematocrit 39.2 % (40-54); Hemoglobin 13.8 g/dl (13.0-16.5); Lymphocyte # 1.02 X10^3/ul (4.0); Lymphocyte % 3.5 % (19-41); Mean Corp Hgb Conc 35.2 g/gl (32-36); Mean Corpuscular Hgb 32.6 pg (27.0-32.0); Mean Corpuscular Volume 92.7 fL (80-94); Mean Platelet Vol. 10.6 fl (6.2-12.0); Monocyte# 3.11 X10^3/uL; Monocyte% 10.7 % (0-10); Neutrophil # 24.86 X10^3/uL (2.7-7.7); Neutrophil % 85.3 % (47-70); POSITIVE COUNT NO; POSITIVE DIFFERENTIAL YES; POSITIVE MORPHOLOGY YES; Platelet Count 271 K/mm3 (150-450); RBC Distribution Width CV 13.7 % (11.6-14.6); RBC Distribution Width SD 45.6 fl (35.1-43.9); Red Blood Count 4.23 M/mm3 (4.6-6.2); White Blood Count 29.2 K/mm3 (4.4-11.0)
[2019-05-13 23:48] LABS: ALB/GLOB Ratio 1.3 RATIO (0.9-2.4); AST(SGOT) 33 U/L (15-37); Alanine Aminotransfer ALT/SGPT 43 U/L (16-61); Albumin, Serum 3.9 g/dL (3.2-5.0); Alkaline Phosphatase 131 U/L (45-117); Anion Gap 33 (5-15); BUN 20 mg/dL (7-18); BUN/Creat Ratio 10.6 RATIO (10-20); Calcium,Total 8.2 mg/dL (8.5-10.1); Chloride 89 mmol/L (98-107); Creatinine, Serum 1.88 mg/dL (0.70-1.30); EST Glomerular Filtration Rate 42 mL/min (>60); Est Glom Filt Rate - Afr Amer 51 mL/min (>60); Estimated Creatinine Clearance 49.02 ml/min; Globulin 3.1 g/dL (2.2-4.2); Glucose 728 mg/dL (74-106); Potassium 5.6 mmol/L (3.5-5.1); Sodium Level 129 mmol/L (136-145)
--- NOTE | 2019-05-13 23:49 | ED.RN ---
LAB CALLED WITH CRITICAL LAB RESULTS CO2 LEVEL [address] GILL MADE AWARE NO NEW ORDERS AT THIS TIME
--- NOTE | 2019-05-13 23:51 | RAD_ITS ---
STUDY: X-RAY CHEST REASON FOR EXAM: Male, 44 years old. Altered mental status TECHNIQUE: 1 view COMPARISON: April 22, 2019 FINDINGS: There is interval removal of a central line through the right internal jugular vein. The lungs are clear. The heart is normal. There are no pleural effusions.. Normal visualized thoracic spine. Normal visualized ribs, clavicles, and shoulders. There is no demonstrated abnormality of the visualized soft tissue structures of the upper abdomen. RAD/Chest 1 View (Portable) IMPRESSION: No acute findings in the lungs Electronically Signed: Raoul Ramesh MD at 0:43 EDT Tel , Service support ,
[2019-05-14] VITALS (24 sets, daily range): BP systolic 86–109; BP diastolic 47–64; PULSE 87–115; RESP 14–20; TEMP 36.6–37; O2SAT 98–100
[2019-05-14 00:12] LABS: Mucous, Urine 0 SEEN /hpf (<or=2+); Red Blood Cells-Urine 0 SEEN /hpf (0-5); White Blood Cells 0 SEEN /hpf (0-5)
[2019-05-14 00:17] LABS: Color, Urine Straw (Yellow); Glucose, Dipstick 1000 mg/dl (Normal); Leukocyte Esterase-Dipstick Negative /ul (Negative); Nitrite-Dipstick Negative (Negative); Occult Blood-Urine Negative /ul (Negative); Protein-Dipstick 15 mg/dl (Negative); Urine Bilirubin Dipstick Negative (Negative); Urine Clarity Clear (Clear); Urine Urobilinogen Normal (Normal)
--- NOTE | 2019-05-14 00:21 | PCM.HP.STD ---
Problem List (1) Diabetes type 1, uncontrolled Status: Acute Comment: DKA w/ encephalopathy 03/2019 (2) Alcoholic cardiomyopathy Status: Chronic (3) Nicotine dependence Status: Chronic History of Present Illness Date of Admission: 05/14/19 Chief Complaint: nausea ,vomitting,high blood sugar The patient is a 44 year old male patient with a past medical history of alcoholism and type 1 diabetes presents to the emergency room with nausea and vomiting for 1 day, tachycardia, and diaphoresis. The patient was just recently discharged from our facility for similar episode of diabetic ketoacidosis. Currently the patient has a blood sugar greater than 700 with an anion gap of 33, high level of acetone and serum him a heart rate of 120 and the patient is currently nauseated. Per further history the patient drank a substantial amount of alcohol 2 days ago and passed out did not receive his diabetic medication. The patient will be admitted to the intensive care unit for management of DKA. Past Medical History Past Medical History (Chronic Problems): Chronic Problems (Last Reviewed 04/30/19 @ 09:33 by Tomi Ornelas MD) Alcoholic cardiomyopathy (Chronic) Nicotine dependence (Chronic) Medical History: Medical History (Last Reviewed 04/30/19 @ 09:33 by Tomi Ornelas MD) Diabetes type 1, uncontrolled (Chronic) E10.65 DKA w/ encephalopathy 03/2019 Alcoholic cardiomyopathy (Chronic) I42.6 Nicotine dependence (Chronic) F17.200 Acute renal failure N17.9 Alcohol abuse F10.10 Anxiety F41.9 Dental caries K02.9 Depression F32.9 Diabetic ketoacidosis Onset Date: 03/2019 E11.10 Dilated cardiomyopathy I42.0 Elevated liver enzymes R74.8 H/O sepsis Z86.19 Hyponatremia E87.1 Lactic acidosis E87.2 Left atrial enlargement I51.7 Mycoplasma pneumonia J15.7 NSVT (nonsustained ventricular tachycardia) I47.2 Neuropathy G62.9 Prolonged QT interval R94.31 Seizure disorder G40.909 Steatosis of liver K76.0 Thrombocytopenia D69.6 ELIZABETH (acute kidney injury) N17.9 Metabolic encephalopathy Onset Date: 03/2019 G93.41 Diabetes type 1, controlled E10.9 dx : 08/2001 last exacerbation : dka : 05/13 hypoglycemic episode : never er visit : 05/13 Allergies zinc Allergy (Intermediate, Verified 05/13/19 23:11) Hives Home Medications: Ambulatory Orders Medication Instructions Recorded blood sugar diagnostic strips See Dose Instructions .ROUTE 01/15/18 .MEDSUPPLY #120 ea levetiracetam 500 mg tablet 500 mg PO BID 01/18/18 mirtazapine 15 mg tablet 30 mg PO QHS 01/18/18 Acamprosate Calcium 2 tab PO BID 04/13/19 Folic Acid 1 tab PO DAILY 30 Days #30 tab 04/16/19 Atorvastatin Calcium 20 mg PO DAILY 04/22/19 Multivitamins,Therapeutic 1 tab PO DAILYCM 04/22/19 [Multivitamin] Insulin Lispro [Humalog Kwikpen] See Rx Instructions SUBCUT TID #0 04/24/19 ml Lisinopril [Zestril] 2.5 mg PO QDAY 04/24/19 Carvedilol 3.125 mg PO BID 05/13/19 Insulin Glargine,Hum.rec.anlog 18 unit SQ DAILY 05/13/19 [Lantus] Surgical History: Surgical History (Last Reviewed 04/30/19 @ 09:33 by Tomi Ornelas MD) History of left heart catheterization Onset Date: 04/18/16 Z98.890 Hx of tonsillectomy Z98.890, Z90.89 Surgical History: noncontributory Smoking Status: Current every day smoker - *Family History Maternal Family History: Family History (Last Reviewed 04/30/19 @ 09:33 by Tomi Ornelas MD) Mother Arthritis Father Diabetes Grandfather Diabetes Grandmother Diabetes History Items: No pertinent history Review of Systems Constitutional: Reports: Anorexia, Malaise, Weakness, Fatigue. Denies: Chills, Fever, Weight Change HEENT: Denies: Head Aches, Sinus Congestion, Sinus Drainage Cardiovascular: Denies: Chest Pain, Palpitations Respiratory: Reports: Shortness of Breath. Denies: Cough, Shortness of breath at rest, Sputum production Gastrointestinal: Reports: Nausea, Vomiting. Denies: Abdominal Pain Genitourinary: Denies: Dysuria Musculoskeletal: Denies: Joint Pain, Joint Tenderness Skin: Denies: Rash, Wounds Neurological: Denies: Numbness, Tingling, Focal weakness Psychiatric: Reports: Anxiety. Denies: Depression, Homicidal Ideations, Suicidal Ideations Hematologic/ Lymphatic: Denies: Easy Bruising, Easy Bleeding VTE Information - Inpt Only VTE Present on Admission: No VTE Mechan Device Prophylaxis: None VTE Pharm Prophylaxis ordered?: Yes - Physical Exam General: Alert, Oriented x3, Cooperative HEENT: Atraumatic, Normocephalic Neck: Supple Lungs: Clear to auscultation, Normal air movement, Tachypneic Cardiovascular: Normal S1, Normal S2, No murmurs, Tachycardic Abdomen: Bowel Sounds Present, Non Tender Extremities: No edema Skin: No rashes Musculoskeletal: No Tenderness to Palpation of Joints or Extremities Neurological: Neuro grossly intact Psych/Mental Status: Normal Affect, Appropriate Vital Signs Temp Pulse Resp BP Pulse Ox 99.7 F H 124 H 28 H 129/57 H 100 05/13/19 23:09 05/13/19 23:09 05/13/19 23:09 05/13/19 23:09 05/13/19 23:09 Oxygen Delivery Method Room Air Weight: 150 lb 12.739 oz Body Mass Index (BMI) 19.8 Finger Stick Blood Glucose 600 Laboratory Tests Past 24 Hrs 05/13/19 05/13/19 05/13/19 23:20 23:20 23:20 WBC 29.2 H RBC 4.23 L Hgb 13.8 Hct 39.2 L MCV 92.7 MCH 32.6 H MCHC 35.2 RDW 13.7 RDW Differential 45.6 H Plt Count 271 MPV 10.6 Immature Gran % (Auto) 0.400 Neut % (Auto) 85.3 H Lymph % (Auto) 3.5 L [place] % (Auto) 10.7 H Eos % (Auto) 0.0 Baso % (Auto) 0.1 Absolute Neuts (auto) 24.9 H Absolute Lymphs (auto) 1.02 Total Counted Not Reportable Diff Path Review May foll Sodium 129 L Potassium 5.6 H Chloride 89 L Carbon Dioxide 7.0 L* Anion Gap 33 H BUN 20 H Creatinine 1.88 H Estim Creat Clear Calc 49.02 Est GFR (MDRD) Af Amer 51 L Est GFR (MDRD) Non-Af 42 L BUN/Creatinine Ratio 10.6 Glucose 728 H* Calcium 8.2 L Total Bilirubin 1.50 H AST 33 ALT 43 Alkaline Phosphatase 131 H Total Protein 7.0 Albumin 3.9 Globulin 3.1 Albumin/Globulin Ratio 1.3 Urine Color Urine Clarity Urine pH Ur Specific [place] Urine Protein Urine Glucose (UA) Urine Ketones Urine Occult Blood Urine Nitrite Urine Bilirubin Urine Urobilinogen Ur Leukocyte Esterase Urine RBC Urine WBC Ur Squamous Epith Cells Urine Bacteria Urine Mucus Ethyl Alcohol 3.0 Acetone Level 05/13/19 05/14/19 23:20 00:05 WBC RBC Hgb Hct MCV MCH MCHC RDW RDW Differential Plt Count MPV Immature Gran % (Auto) Neut % (Auto) Lymph % (Auto) [place] % (Auto) Eos % (Auto) Baso % (Auto) Absolute Neuts (auto) Absolute Lymphs (auto) Total Counted Diff Path Review Sodium Potassium Chloride Carbon Dioxide Anion Gap BUN Creatinine Estim Creat Clear Calc Est GFR (MDRD) Af Amer Est GFR (MDRD) Non-Af BUN/Creatinine Ratio Glucose Calcium Total Bilirubin AST ALT Alkaline Phosphatase Total Protein Albumin Globulin Albumin/Globulin Ratio Urine Color Pending Urine Clarity Pending Urine pH Pending Ur Specific [place] Pending Urine Protein Pending Urine Glucose (UA) Pending Urine Ketones Pending Urine Occult Blood Pending Urine Nitrite Pending Urine Bilirubin Pending Urine Urobilinogen Pending Ur Leukocyte Esterase Pending Urine RBC Pending Urine WBC Pending Ur Squamous Epith Cells Pending Urine Bacteria Pending Urine Mucus Pending Ethyl Alcohol Acetone Level LARGE H POC Glucose 05/13/19 23:12 POC Glucose > 500 H* Assessment/Plan All Active Problems (Last Reviewed 04/30/19 @ 09:33 by Tomi Ornelas MD) Diabetes type 1, uncontrolled (Acute) Hyperkalemia (Resolved) Hyponatremia (Resolved) Metabolic encephalopathy (Resolved) Chronic Problems (Last Reviewed 04/30/19 @ 09:33 by Tomi Ornelas MD) Alcoholic cardiomyopathy (Chronic) Nicotine dependence (Chronic) Plan 1. Diabetic ketoacidosis?admit to intensive care unit consult port patrol officer, initiate DKA protocol with insulin drip 2. Nicotine dependence?add nicotine patch 3. Nausea?add Zofran as needed 4. Alcoholism?add thiamine and folate 5. DVT prophylaxis?low molecular weight heparin 40 mg subcu daily Code Visit Inpatient E&M: 80174 Init Hosp L3
[2019-05-14 00:26] LABS: Ketone-Dipstick 150 mg/dl (Negative)
[2019-05-14 00:27] LABS: Bacteria RARE /hpf (None Seen); Squamous Epithelial Cells - UA 0-5 SEEN /hpf (0-5)
[2019-05-14 00:31] LABS: Bedside Glucose > 500 mg/dL (70-110)
--- NOTE | 2019-05-14 00:52 | ED.RN ---
0025 dr echavarria aware of 150 ketones in urine.
[2019-05-14 01:11] LABS: Blood Gas Specimen Type VEN; O2 Delivery Device Room Air; SITE OTHER; Time Given 45; VBG BASE EXCESS -20 mmol/L (-1.0-3.5); VBG Bicarbonate 7 mmol/L (22-26); VBG Oxygen Content 7 mmol/L (23-33); VBG PO2 81 mmHg (25-40); VBG SO2 95 % (50-70); VBG pCO2 13.4 mmHg (41-51)
--- NOTE | 2019-05-14 01:17 | ED.RN ---
verbal report given to marilee segundo
--- NOTE | 2019-05-14 01:21 | CPS ---
Critical VBG results read to Dr. Reno
[2019-05-14 01:36] LABS: Bedside Glucose > 500 mg/dL (70-110)
[2019-05-14] MEDS: 0.9% Normal Saline 1,000 ML 999 ML IV (02:10)
[2019-05-14 02:24] LABS: Anion Gap 25 (5-15); BUN 18 mg/dL (7-18); BUN/Creat Ratio 11.2 RATIO (10-20); Calcium,Total 6.9 mg/dL (8.5-10.1); Chloride 102 mmol/L (98-107); EST Glomerular Filtration Rate 50 mL/min (>60); Est Glom Filt Rate - Afr Amer 61 mL/min (>60); Estimated Creatinine Clearance 56.41 ml/min; Glucose 426 mg/dL (74-106); Potassium 3.9 mmol/L (3.5-5.1); Sodium Level 136 mmol/L (136-145)
[2019-05-14 02:36] LABS: Bedside Glucose 370 mg/dL (70-110)
[2019-05-14 04:31] LABS: Bedside Glucose 288 mg/dL (70-110)
[2019-05-14 04:35] LABS: Bedside Glucose 255 mg/dL (70-110)
[2019-05-14 05:33] LABS: Anion Gap 17 (5-15); BUN 17 mg/dL (7-18); BUN/Creat Ratio 12.1 RATIO (10-20); Calcium,Total 7.2 mg/dL (8.5-10.1); Chloride 105 mmol/L (98-107); EST Glomerular Filtration Rate 59 mL/min (>60); Est Glom Filt Rate - Afr Amer 71 mL/min (>60); Estimated Creatinine Clearance 64.47 ml/min; Glucose 259 mg/dL (74-106); Magnesium 1.7 mg/dL (1.6-2.6); Potassium 3.9 mmol/L (3.5-5.1); Sodium Level 138 mmol/L (136-145)
[2019-05-14 05:41] LABS: Bedside Glucose 268 mg/dL (70-110)
[2019-05-14 06:30] LABS: Bedside Glucose 265 mg/dL (70-110)
--- NOTE | 2019-05-14 06:51 | PCM.CON.CC ---
Reason for Consult Date of Consultation: 05/14/19 Reason for Consultation: Diabetic ketoacidosis History of Present Illness: The patient is a 44-year-old male, with a history as outlined below, who presented to the emergency department on May 13 with hyperglycemia, tachycardia and altered mentation. The patient is a known diabetic with a history of noncompliance and frequent hospitalizations for diabetic ketoacidosis. The patient was last admitted to the hospital April 22-, under similar circumstances. The patient is a known type I diabetic, diagnosed in 2000, who was previously being followed by [facility]. He was last seen by her in November 2018. In addition to the aforementioned, the patient does have a history of alcohol and tobacco dependency along with dilated cardiomyopathy. The patient reports that he currently drinks approximate 1 bottle of vodka per day and smokes approximately 1 pack of cigarettes per day. On presentation to the emergency department, the patient was noted to be tachycardic and hemodynamically stable. He was maintaining appropriate oxygen saturations on room air. Laboratory evaluation revealed elevated white blood cell count to 30,000. Chemistry profile revealed a sodium of 129, potassium of 5.6, chloride of 89, bicarbonate of 7.0 and acute kidney injury with a creatinine of 1.9. Glucose was increased to 728. Serum alcohol level was noted to be 3.0. A large serum acetone level was noted. CT head revealed mild hydrocephalus without any further intracranial abnormality identified. Plain film chest x-ray revealed no acute cardiopulmonary process. The patient received supplemental IV fluid hydration and was started on a continuous insulin infusion. He was then admitted to the medical intensive care unit for ongoing management. Past Medical History Past Medical History (Chronic Problems): Chronic Problems (Last Reviewed 04/30/19 @ 09:33 by Tomi Ornelas MD) Alcoholic cardiomyopathy (Chronic) Nicotine dependence (Chronic) Medical History: Medical History (Last Reviewed 04/30/19 @ 09:33 by Tomi Ornelas MD) Diabetes type 1, uncontrolled (Acute) E10.65 DKA w/ encephalopathy 03/2019 Alcoholic cardiomyopathy (Chronic) I42.6 Nicotine dependence (Chronic) F17.200 Acute renal failure N17.9 Alcohol abuse F10.10 Anxiety F41.9 Dental caries K02.9 Depression F32.9 Diabetic ketoacidosis Onset Date: 03/2019 E11.10 Dilated cardiomyopathy I42.0 Elevated liver enzymes R74.8 H/O sepsis Z86.19 Hyponatremia E87.1 Lactic acidosis E87.2 Left atrial enlargement I51.7 Mycoplasma pneumonia J15.7 NSVT (nonsustained ventricular tachycardia) I47.2 Neuropathy G62.9 Prolonged QT interval R94.31 Seizure disorder G40.909 Steatosis of liver K76.0 Thrombocytopenia D69.6 ELIZABETH (acute kidney injury) N17.9 Metabolic encephalopathy Onset Date: 03/2019 G93.41 Diabetes type 1, controlled E10.9 dx : 08/2001 last exacerbation : dka : 05/13 hypoglycemic episode : never er visit : 05/13 Allergies zinc Allergy (Intermediate, Verified 05/13/19 23:11) Hives Home Medications: Ambulatory Orders Medication Instructions Recorded blood sugar diagnostic strips See Dose Instructions .ROUTE 01/15/18 .MEDSUPPLY #120 ea levetiracetam 500 mg tablet 500 mg PO BID 01/18/18 mirtazapine 15 mg tablet 30 mg PO QHS 01/18/18 Acamprosate Calcium 2 tab PO BID 04/13/19 Folic Acid 1 tab PO DAILY 30 Days #30 tab 04/16/19 Atorvastatin Calcium 20 mg PO DAILY 04/22/19 Multivitamins,Therapeutic 1 tab PO DAILYCM 04/22/19 [Multivitamin] Insulin Lispro [Humalog Kwikpen] See Rx Instructions SUBCUT TID #0 04/24/19 ml Lisinopril [Zestril] 2.5 mg PO QDAY 04/24/19 Carvedilol 3.125 mg PO BID 05/13/19 Insulin Glargine,Hum.rec.anlog 18 unit SQ DAILY 05/13/19 [Lantus] Surgical History: Surgical History (Last Reviewed 04/30/19 @ 09:33 by Tomi Ornelas MD) History of left heart catheterization Onset Date: 04/18/16 Z98.890 Hx of tonsillectomy Z98.890, Z90.89 Surgical History: noncontributory Psychiatric History: No pertinent psych hx Smoking Status: Current every day smoker - *Family History Maternal Family History: Family History (Last Reviewed 04/30/19 @ 09:33 by Tomi Ornelas MD) Mother Arthritis Father Diabetes Grandfather Diabetes Grandmother Diabetes History Items: No pertinent history Review of Systems Constitutional: Reports: Malaise, Weakness, Fatigue Eyes: Denies: Blurred vision, Double vision HEENT: Denies: Head Aches, Sinus Congestion, Sinus Drainage Cardiovascular: Denies: Chest Pain, Palpitations Respiratory: Denies: Cough, Shortness of breath at rest, Sputum production Gastrointestinal: Denies: Abdominal Pain, Nausea, Vomiting Genitourinary: Denies: Dysuria Musculoskeletal: Denies: Joint Pain, Joint Tenderness Skin: Denies: Rash, Wounds Neurological: Denies: Numbness, Tingling, Focal weakness Psychiatric: Denies: Anxiety, Depression, Homicidal Ideations, Suicidal Ideations Hematologic/ Lymphatic: Denies: Easy Bruising, Easy Bleeding Objective: The patient's most recent lab work, culture data and imaging studies have all been personally reviewed. - Physical Exam General: Alert, Cooperative, No apparent distress HEENT: Atraumatic, PERRLA, Normocephalic Oral: Dry Mucosa Neck: Supple, No Nodes, Trachea Midline Lungs: Normal air movement, No rhonchi, No wheeze, No rales Cardiovascular: Regular rate, Regular Rhythm, Normal S1, Normal S2, No murmurs Abdomen: Bowel Sounds Present, Soft, Non Tender, Non-Distended Extremities: No clubbing, No cyanosis, No edema Skin: No breakdown Musculoskeletal: No Tenderness to Palpation of Joints or Extremities Lymphatic: No Cervical, Supraclavicular, or Inguinal Adenopathy Neurological: Cranial nerves II-XII grossly intact, Neuro grossly intact Psych/Mental Status: Normal Affect, Appropriate Vital Signs Temp Pulse Resp BP Pulse Ox 98.0 F 92 16 93/54 L 100 05/14/19 03:00 05/14/19 06:00 05/14/19 06:00 05/14/19 06:00 05/14/19 06:00 Oxygen Delivery Method Room Air Weight: 147 lb 11.355 oz Body Mass Index (BMI) 20.0 Finger Stick Blood Glucose 265 Intake and Output for Last 24 Hours 05/12/19 05/13/19 05/14/19 23:59 23:59 23:59 Intake Total 1410.8 / 1410.8 Balance 1410.8 / 1410.8 Laboratory Tests Past 24 Hrs 05/13/19 05/13/19 05/13/19 23:20 23:20 23:20 WBC 29.2 H RBC 4.23 L Hgb 13.8 Hct 39.2 L MCV 92.7 MCH 32.6 H MCHC 35.2 RDW 13.7 RDW Differential 45.6 H Plt Count 271 MPV 10.6 Immature Gran % (Auto) 0.400 Neut % (Auto) 85.3 H Lymph % (Auto) 3.5 L Jerome % (Auto) 10.7 H Eos % (Auto) 0.0 Baso % (Auto) 0.1 Absolute Neuts (auto) 24.9 H Absolute Lymphs (auto) 1.02 Total Counted Not Reportable Diff Path Review May foll Specimen Type Sample Site VBG pH VBG pO2 VBG O2 Sat (Calc) VBG O2 Content VBG Base Excess POC Mix VBG pCO2 Pt Tmp O2 Delivery Device Blood Gas Notified Whom Blood Gas Notified Time Sodium 129 L Potassium 5.6 H Chloride 89 L Carbon Dioxide 7.0 L* Anion Gap 33 H BUN 20 H Creatinine 1.88 H Estim Creat Clear Calc 49.02 Est GFR (MDRD) Af Amer 51 L Est GFR (MDRD) Non-Af 42 L BUN/Creatinine Ratio 10.6 Glucose 728 H* Calcium 8.2 L Magnesium Total Bilirubin 1.50 H AST 33 ALT 43 Alkaline Phosphatase 131 H Troponin I Total Protein 7.0 Albumin 3.9 Globulin 3.1 Albumin/Globulin Ratio 1.3 Urine Color Urine Clarity Urine pH Ur Specific [place] Urine Protein Urine Glucose (UA) Urine Ketones Urine Occult Blood Urine Nitrite Urine Bilirubin Urine Urobilinogen Ur Leukocyte Esterase Urine RBC Urine WBC Ur Squamous Epith Cells Urine Bacteria Urine Mucus Ethyl Alcohol 3.0 Acetone Level 05/13/19 05/14/19 05/14/19 23:20 00:05 00:55 WBC RBC Hgb Hct MCV MCH MCHC RDW RDW Differential Plt Count MPV Immature Gran % (Auto) Neut % (Auto) Lymph % (Auto) Jerome % (Auto) Eos % (Auto) Baso % (Auto) Absolute Neuts (auto) Absolute Lymphs (auto) Total Counted Diff Path Review Specimen Type JAKY Sample Site OTHER VBG pH 7.30 L VBG pO2 81 H VBG O2 Sat (Calc) 95 H VBG O2 Content 7 L VBG Base Excess -20 L POC Mix VBG pCO2 Pt Tmp 13.4 L* O2 Delivery Device Room Air Blood Gas Notified Whom ED Blood Gas Notified Time 45 Sodium Potassium Chloride Carbon Dioxide Anion Gap BUN Creatinine Estim Creat Clear Calc Est GFR (MDRD) Af Amer Est GFR (MDRD) Non-Af BUN/Creatinine Ratio Glucose Calcium Magnesium Total Bilirubin AST ALT Alkaline Phosphatase Troponin I Total Protein Albumin Globulin Albumin/Globulin Ratio Urine Color Straw Urine Clarity Clear Urine pH 5.0 Ur Specific [place] 1.020 Urine Protein 15 H Urine Glucose (UA) 1000 H Urine Ketones 150 H Urine Occult Blood Negative Urine Nitrite Negative Urine Bilirubin Negative Urine Urobilinogen Normal Ur Leukocyte Esterase Negative Urine RBC 0 SEEN Urine WBC 0 SEEN Ur Squamous Epith Cells 0-5 SEEN Urine Bacteria RARE Urine Mucus 0 SEEN Ethyl Alcohol Acetone Level LARGE H 05/14/19 05/14/19 05/14/19 01:40 01:40 05:00 WBC RBC Hgb Hct MCV MCH MCHC RDW RDW Differential Plt Count MPV Immature Gran % (Auto) Neut % (Auto) Lymph % (Auto) Jerome % (Auto) Eos % (Auto) Baso % (Auto) Absolute Neuts (auto) Absolute Lymphs (auto) Total Counted Diff Path Review Specimen Type Sample Site VBG pH VBG pO2 VBG O2 Sat (Calc) VBG O2 Content VBG Base Excess POC Mix VBG pCO2 Pt Tmp O2 Delivery Device Blood Gas Notified Whom Blood Gas Notified Time Sodium 136 138 Potassium 3.9 3.9 Chloride 102 105 Carbon Dioxide 9.0 L* 16.0 L Anion Gap 25 H 17 H BUN 18 17 Creatinine 1.60 H 1.40 H Estim Creat Clear Calc 56.41 64.47 Est GFR (MDRD) Af Amer 61 71 Est GFR (MDRD) Non-Af 50 L 59 L BUN/Creatinine Ratio 11.2 12.1 Glucose 426 H 259 H Calcium 6.9 L 7.2 L Magnesium 1.7 Total Bilirubin AST ALT Alkaline Phosphatase Troponin I 0.024 Total Protein Albumin Globulin Albumin/Globulin Ratio Urine Color Urine Clarity Urine pH Ur Specific [place] Urine Protein Urine Glucose (UA) Urine Ketones Urine Occult Blood Urine Nitrite Urine Bilirubin Urine Urobilinogen Ur Leukocyte Esterase Urine RBC Urine WBC Ur Squamous Epith Cells Urine Bacteria Urine Mucus Ethyl Alcohol Acetone Level POC Glucose 05/14/19 05/14/19 05/14/19 06:27 05:34 04:30 POC Glucose 265 H 268 H 255 H 05/14/19 05/14/19 05/14/19 03:35 02:29 01:31 POC Glucose 288 H 370 H > 500 H* 05/14/19 05/13/19 00:19 23:12 POC Glucose > 500 H* > 500 H* Clinical Impression(s) from Imaging Studies Brain CT 05/13/19 23:23 IMPRESSION: Mild hydrocephalus, which was not present in 2016. I suspect that this represents communicating hydrocephalus, possibly due to central atrophy or normal pressure hydrocephalus, however, would recommend MRI for confirmation. No other evidence for significant abnormalities.. Electronically Signed: Placido Petersen MD at 0:15 EDT , Service support , Chest X-Ray 05/13/19 23:51 IMPRESSION: No acute findings in the lungs Electronically Signed: Raoul Ramesh MD at 0:43 EDT Tel , Service support , Assessment/Plan RECOMMENDATIONS: 1. Continue DKA management per protocol with continuous supplemental IV fluids and insulin infusion. 2. Continue above until anion gap has been closed x2. 3. Smoking and alcohol cessation strongly advised. Nicotine replacement therapy can be offered to the patient while admitted to the hospital. 4. Aggressive electrolyte repletion as needed. 5. Diabetic education and outpatient follow-up with endocrinology is warranted. IMPRESSIONS: 1. Diabetic ketoacidosis secondary to medical noncompliance The patient has been admitted multiple times to the hospital recently under similar circumstances in the setting of noncompliance. Recommend continuing current supportive measures with supplemental IV fluids and insulin drip until anion gap has been closed x2. Once achieved, the patient can be restarted on basal insulin and sliding scale coverage. Continue aggressive electrolyte repletion as needed. Diabetic education to be provided. 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 2. Hypokalemia/hypophosphatemia Aggressive electrolyte repletion as noted above. Recheck levels in the morning. 3. Chronic alcohol and tobacco dependency Cessation is strongly recommended. Concerned that the patient may develop alcohol withdrawal symptoms while admitted to the hospital. 4. History of dilated cardiomyopathy/unspecified seizure disorder/anxiety/depression Complicates care, management, recovery and prognosis. Okay to continue home medications as indicated. This note was generated with [employer] dictation software. It may contain incorrect words, spelling, and punctuation that were not noted in checking the note before signing. Code Visit Inpatient E&M: 72025 Init Hosp L3
[2019-05-14 07:41] LABS: Bedside Glucose 277 mg/dL (70-110)
--- NOTE | 2019-05-14 07:52 | PCM.PROGNOTE ---
Subjective: The patient is a 44-year-old male with a past medical history of type 1 diabetes mellitus, alcoholic cardiomyopathy (resolved), anxiety/depression, seizure disorder and tobacco dependence who presented to the emergency department at [facility] on 05/13/2019 complaining of high blood sugar, racing heart and confusion. He had nausea and vomiting for 1 day preceding presentation to the emergency room. Apparently the patient drank a large amount of alcohol 2 days prior to coming to the emergency room and passed out. He was not taking his insulin. He was recently admitted to the hospital from 04/22/2019 to 04/24/2019 for DKA. He was also admitted to the hospital on 04/13/2019 with DKA and suspected aspiration pneumonia. Vital signs at presentation to the emergency room were temp 98.6, pulse rate 115, blood pressure 109/52, respiratory rate 20 and he was 100% saturated on room air. White blood cell count was 29.2 with hemoglobin of 13.8 and normal platelets. Venous ABG showed a pH of 7.3. Sodium was low at 129 and the potassium was 5.6. Serum bicarb was 7 and the anion gap was 33. BUN was 20 and the creatinine was 1.88. Creatinine on 04/24/2019 was 0.72. Random blood sugar was 728. Troponin was elevated at 0.024. UA had 0 WBCs. Chest x-ray showed hyperinflation with no infiltrates, pleural effusions or pulmonary vascular congestion. A brain CT showed mild hydrocephalus which was not present in 2016. He was admitted to the intensive care unit and the DKA protocol was initiated. T-max 99.7. Sinus tachycardia has resolved and the current heart rate is 92. Blood pressure is within normal limits and stable. All lab and imaging was personally reviewed. Bicarb is now up to 16 but the anion gap remains high at 17. Potassium is 3.9. Most recent blood sugar is 277 and he remains on a continuous insulin infusion. Echocardiogram in January 2018 showed an ejection fraction of 53% with 1+ TR. In the past his EF was as low as 15%. Cardiac catheterization in March 2016 showed normal coronaries. - Physical Exam General: Oriented x3, Cooperative, - - Sleepy but arouses easily. Appears older than his stated age HEENT: BRAD, EOMI, - - He has facial abrasions over the bridge of the nose and forehead Oral: Dry Mucosa Neck: Supple, No JVD Lungs: Clear to auscultation Cardiovascular: Regular rate, Regular Rhythm, Normal S1, Normal S2, No murmurs, No rub noted, No Gallop Abdomen: Bowel Sounds Present, Soft, Non Tender, Non-Distended Extremities: No clubbing, No cyanosis, No edema Neurological: Cranial nerves II-XII grossly intact, Neuro grossly intact Psych/Mental Status: Appropriate Vital Signs Temp Pulse Resp BP Pulse Ox 98.2 F 92 14 92/57 L 100 05/14/19 07:00 05/14/19 07:00 05/14/19 07:00 05/14/19 07:00 05/14/19 07:00 Oxygen Delivery Method Room Air Weight: 147 lb 11.355 oz Body Mass Index (BMI) 20.0 Finger Stick Blood Glucose 277 Intake and Output for Last 24 Hours 05/12/19 05/13/19 05/14/19 23:59 23:59 23:59 Intake Total 1410.8 / 1410.8 Balance 1410.8 / 1410.8 Laboratory Tests Past 24 Hrs 05/13/19 05/13/19 05/13/19 23:20 23:20 23:20 WBC 29.2 H RBC 4.23 L Hgb 13.8 Hct 39.2 L MCV 92.7 MCH 32.6 H MCHC 35.2 RDW 13.7 RDW Differential 45.6 H Plt Count 271 MPV 10.6 Immature Gran % (Auto) 0.400 Neut % (Auto) 85.3 H Lymph % (Auto) 3.5 L Harris % (Auto) 10.7 H Eos % (Auto) 0.0 Baso % (Auto) 0.1 Absolute Neuts (auto) 24.9 H Absolute Lymphs (auto) 1.02 Total Counted Not Reportable Diff Path Review May foll Specimen Type Sample Site VBG pH VBG pO2 VBG O2 Sat (Calc) VBG O2 Content VBG Base Excess POC Mix VBG pCO2 Pt Tmp O2 Delivery Device Blood Gas Notified Whom Blood Gas Notified Time Sodium 129 L Potassium 5.6 H Chloride 89 L Carbon Dioxide 7.0 L* Anion Gap 33 H BUN 20 H Creatinine 1.88 H Estim Creat Clear Calc 49.02 Est GFR (MDRD) Af Amer 51 L Est GFR (MDRD) Non-Af 42 L BUN/Creatinine Ratio 10.6 Glucose 728 H* Calcium 8.2 L Magnesium Total Bilirubin 1.50 H AST 33 ALT 43 Alkaline Phosphatase 131 H Troponin I Total Protein 7.0 Albumin 3.9 Globulin 3.1 Albumin/Globulin Ratio 1.3 Urine Color Urine Clarity Urine pH Ur Specific [place] Urine Protein Urine Glucose (UA) Urine Ketones Urine Occult Blood Urine Nitrite Urine Bilirubin Urine Urobilinogen Ur Leukocyte Esterase Urine RBC Urine WBC Ur Squamous Epith Cells Urine Bacteria Urine Mucus Ethyl Alcohol 3.0 Acetone Level 05/13/19 05/14/19 05/14/19 23:20 00:05 00:55 WBC RBC Hgb Hct MCV MCH MCHC RDW RDW Differential Plt Count MPV Immature Gran % (Auto) Neut % (Auto) Lymph % (Auto) Harris % (Auto) Eos % (Auto) Baso % (Auto) Absolute Neuts (auto) Absolute Lymphs (auto) Total Counted Diff Path Review Specimen Type JAKY Sample Site OTHER VBG pH 7.30 L VBG pO2 81 H VBG O2 Sat (Calc) 95 H VBG O2 Content 7 L VBG Base Excess -20 L POC Mix VBG pCO2 Pt Tmp 13.4 L* O2 Delivery Device Room Air Blood Gas Notified Whom ED Blood Gas Notified Time 45 Sodium Potassium Chloride Carbon Dioxide Anion Gap BUN Creatinine Estim Creat Clear Calc Est GFR (MDRD) Af Amer Est GFR (MDRD) Non-Af BUN/Creatinine Ratio Glucose Calcium Magnesium Total Bilirubin AST ALT Alkaline Phosphatase Troponin I Total Protein Albumin Globulin Albumin/Globulin Ratio Urine Color Straw Urine Clarity Clear Urine pH 5.0 Ur Specific [place] 1.020 Urine Protein 15 H Urine Glucose (UA) 1000 H Urine Ketones 150 H Urine Occult Blood Negative Urine Nitrite Negative Urine Bilirubin Negative Urine Urobilinogen Normal Ur Leukocyte Esterase Negative Urine RBC 0 SEEN Urine WBC 0 SEEN Ur Squamous Epith Cells 0-5 SEEN Urine Bacteria RARE Urine Mucus 0 SEEN Ethyl Alcohol Acetone Level LARGE H 05/14/19 05/14/19 05/14/19 01:40 01:40 05:00 WBC RBC Hgb Hct MCV MCH MCHC RDW RDW Differential Plt Count MPV Immature Gran % (Auto) Neut % (Auto) Lymph % (Auto) Harris % (Auto) Eos % (Auto) Baso % (Auto) Absolute Neuts (auto) Absolute Lymphs (auto) Total Counted Diff Path Review Specimen Type Sample Site VBG pH VBG pO2 VBG O2 Sat (Calc) VBG O2 Content VBG Base Excess POC Mix VBG pCO2 Pt Tmp O2 Delivery Device Blood Gas Notified Whom Blood Gas Notified Time Sodium 136 138 Potassium 3.9 3.9 Chloride 102 105 Carbon Dioxide 9.0 L* 16.0 L Anion Gap 25 H 17 H BUN 18 17 Creatinine 1.60 H 1.40 H Estim Creat Clear Calc 56.41 64.47 Est GFR (MDRD) Af Amer 61 71 Est GFR (MDRD) Non-Af 50 L 59 L BUN/Creatinine Ratio 11.2 12.1 Glucose 426 H 259 H Calcium 6.9 L 7.2 L Magnesium 1.7 Total Bilirubin AST ALT Alkaline Phosphatase Troponin I 0.024 Total Protein Albumin Globulin Albumin/Globulin Ratio Urine Color Urine Clarity Urine pH Ur Specific [place] Urine Protein Urine Glucose (UA) Urine Ketones Urine Occult Blood Urine Nitrite Urine Bilirubin Urine Urobilinogen Ur Leukocyte Esterase Urine RBC Urine WBC Ur Squamous Epith Cells Urine Bacteria Urine Mucus Ethyl Alcohol Acetone Level 05/14/19 05:00 WBC RBC Hgb Hct MCV MCH MCHC RDW RDW Differential Plt Count MPV Immature Gran % (Auto) Neut % (Auto) Lymph % (Auto) Harris % (Auto) Eos % (Auto) Baso % (Auto) Absolute Neuts (auto) Absolute Lymphs (auto) Total Counted Diff Path Review Specimen Type Sample Site VBG pH VBG pO2 VBG O2 Sat (Calc) VBG O2 Content VBG Base Excess POC Mix VBG pCO2 Pt Tmp O2 Delivery Device Blood Gas Notified Whom Blood Gas Notified Time Sodium Potassium Chloride Carbon Dioxide Anion Gap BUN Creatinine Estim Creat Clear Calc Est GFR (MDRD) Af Amer Est GFR (MDRD) Non-Af BUN/Creatinine Ratio Glucose Calcium Magnesium Total Bilirubin AST ALT Alkaline Phosphatase Troponin I 0.020 Total Protein Albumin Globulin Albumin/Globulin Ratio Urine Color Urine Clarity Urine pH Ur Specific [place] Urine Protein Urine Glucose (UA) Urine Ketones Urine Occult Blood Urine Nitrite Urine Bilirubin Urine Urobilinogen Ur Leukocyte Esterase Urine RBC Urine WBC Ur Squamous Epith Cells Urine Bacteria Urine Mucus Ethyl Alcohol Acetone Level POC Glucose 05/14/19 05/14/19 05/14/19 07:28 06:27 05:34 POC Glucose 277 H 265 H 268 H 06/18/19 06/18/19 06/18/19 04:30 03:35 02:29 POC Glucose 255 H 288 H 370 H 05/14/19 05/14/19 05/13/19 01:31 00:19 23:12 POC Glucose > 500 H* > 500 H* > 500 H* Medical Necessity - Tobacco Use Smoking Status: Current every day smoker Assessment/Plan All Active Problems (Last Reviewed 04/30/19 @ 09:33 by Tomi Ornelas MD) Diabetes type 1, uncontrolled (Acute) Hyperkalemia (Resolved) Hyponatremia (Resolved) Metabolic encephalopathy (Resolved) Impressions 1. DKA-this is his third admission since 04/13/2019 for DKA. Has been drinking heavily and reportedly not taking his insulin. 2. Diabetes mellitus type 1-poorly controlled 3. Hypokalemia 4. Hypophosphatemia 5. Dehydration 6. Remote history of severe alcoholic cardiomyopathy with a 15% ejection fraction however echocardiogram in January 2018 showed an ejection fraction of 53% 7. Mild hydrocephalus on noncontrasted CT brain 8. Facial abrasions secondary to fall while intoxicated 9. History of anxiety/depression 10. Seizure disorder 11. Tobacco dependence transfer to MD when the AG has been closed on 2 BMP's and restart on insulin regimen Supplement potassium, supplement phosphorus Start a daily magnesium supplement Will need an MRI of the brain to evaluate better for hydrocephalus however this can be done as an outpatient He will be following with [facility] again....she is now practising in [place] Recheck lab in the a.m. Smoking cessation advised [facility] protocol ordered Code Visit Inpatient E&M: 45723 Disch Hosp
[2019-05-14 08:31] LABS: Bedside Glucose 250 mg/dL (70-110)
[2019-05-14 08:47] LABS: Anion Gap 11 (5-15); BUN 17 mg/dL (7-18); BUN/Creat Ratio 12.3 RATIO (10-20); Calcium,Total 7.3 mg/dL (8.5-10.1); Chloride 103 mmol/L (98-107); Creatinine, Serum 1.38 mg/dL (0.70-1.30); EST Glomerular Filtration Rate 60 mL/min (>60); Est Glom Filt Rate - Afr Amer 72 mL/min (>60); Estimated Creatinine Clearance 65.41 ml/min; Glucose 266 mg/dL (74-106); Potassium 4.2 mmol/L (3.5-5.1); Sodium Level 135 mmol/L (136-145)
[2019-05-14 09:31] LABS: Bedside Glucose 230 mg/dL (70-110)
[2019-05-14] MEDS: Enoxaparin 40 MG/0.4 ML Syringe SC (09:32)
[2019-05-14 11:31] LABS: Bedside Glucose 206 mg/dL (70-110)
[2019-05-14 12:44] LABS: Anion Gap 11 (5-15); BUN 16 mg/dL (7-18); BUN/Creat Ratio 12.9 RATIO (10-20); Calcium,Total 7.5 mg/dL (8.5-10.1); Chloride 105 mmol/L (98-107); Creatinine, Serum 1.24 mg/dL (0.70-1.30); EST Glomerular Filtration Rate 68 mL/min (>60); Est Glom Filt Rate - Afr Amer 82 mL/min (>60); Estimated Creatinine Clearance 72.79 ml/min; Glucose 192 mg/dL (74-106); Potassium 4.1 mmol/L (3.5-5.1); Sodium Level 138 mmol/L (136-145)
[2019-05-14] MEDS: 0.9% NaCl Peripheral Flush Adult/Peds IV ×3 (13:44→21:29)
[2019-05-14] MEDS: Magnesium Oxide 400 MG Tablet PO (13:45)
[2019-05-14 13:56] LABS: Bedside Glucose 147 mg/dL (70-110)
[2019-05-14 13:57] LABS: Pathologist Review Reviewed
[2019-05-14 14:09] LABS: Phosphorus 1.5 mg/dL (2.5-4.9)
[2019-05-14] MEDS: Insulin Lispro 100 UNIT/ML INSULN.PEN 10 UNIT SC (14:45)
[2019-05-14 17:20] LABS: Bedside Glucose 148 mg/dL (70-110)
[2019-05-14] MEDS: Insulin Lispro 100 UNIT/ML INSULN.PEN 15 UNIT SC (17:52)
[2019-05-14 21:27] LABS: Hemoglobin A1c 8.5 % (4.2-6.3)
[2019-05-14] MEDS: Atorvastatin Calcium 20 MG Tablet PO (21:29)
[2019-05-14] MEDS: Mirtazapine 30 MG Tablet PO (21:29)
[2019-05-14] MEDS: levETIRAcetam 500 MG Tablet PO (21:29)
[2019-05-14] MEDS: Carvedilol 3.125 MG TABLET PO (21:29)
[2019-05-14 21:36] LABS: Bedside Glucose 173 mg/dL (70-110)
[2019-05-15 02:07] VITALS: BP 106/64; PULSE 79; RESP 18; TEMP 36.7; O2SAT 99
[2019-05-15 06:30] LABS: Anion Gap 9 (5-15); BUN 11 mg/dL (7-18); BUN/Creat Ratio 11.9 RATIO (10-20); Calcium,Total 8.1 mg/dL (8.5-10.1); Chloride 106 mmol/L (98-107); Creatinine, Serum 0.92 mg/dL (0.70-1.30); EST Glomerular Filtration Rate 95 mL/min (>60); Est Glom Filt Rate - Afr Amer 115 mL/min (>60); Estimated Creatinine Clearance 106.61 ml/min; Glucose 149 mg/dL (74-106); Magnesium 1.9 mg/dL (1.6-2.6); Phosphorus 3.4 mg/dL (2.5-4.9); Potassium 3.9 mmol/L (3.5-5.1); Sodium Level 139 mmol/L (136-145)
[2019-05-15 07:48] VITALS: BP 114/82; PULSE 72; RESP 18; TEMP 36.5; O2SAT 100
[2019-05-15 07:55] LABS: Bedside Glucose 154 mg/dL (70-110)
[2019-05-15] MEDS: Folic Acid 1 MG Tablet PO (08:15)
[2019-05-15] MEDS: Magnesium Oxide 400 MG Tablet PO (08:15)
[2019-05-15] MEDS: Insulin Lispro 100 UNIT/ML INSULN.PEN 15 UNIT SC ×2 (08:15→12:34)
[2019-05-15] MEDS: Insulin Lispro 100 UNIT/ML INSULN.PEN SC (08:16)
[2019-05-15] MEDS: levETIRAcetam 500 MG Tablet PO (09:34)
[2019-05-15] MEDS: Enoxaparin 40 MG/0.4 ML Syringe SC (09:34)
[2019-05-15] MEDS: Carvedilol 3.125 MG TABLET PO (09:35)
[2019-05-15] MEDS: Lisinopril 2.5 MG Tablet PO (09:35)
--- NOTE | 2019-05-15 10:35 | NURSING ---
Behavioral health notified that Dr. Morillo would like patient seen.
--- NOTE | 2019-05-15 10:53 | PCM.DC ---
You will use the following diet at home:: Calorie/Carbohydrate Controlled (specify 1200, 1400, etc) - low fat Your food should be the consistency of: Regular Your liquids should be the consistency of: Regular/Thin Discharge Activity: Return to Normal Activity Call your doctor if you observe: Fever of 101 or Higher, Dizziness, Fainting spells, Chest pain, - - nausea, vomiting, consistent blood sugars over 250 or frequent blood sugars < 90 Instructions: Your Body's Response to Anxiety, Treating Anxiety Disorders with Therapy, Understanding Anxiety Disorders, Treating Anxiety Disorders with Medication, Depression Affects Your Mind and Body, What Can Cause Depression?, Depression: Tips to Help Yourself Additional Instructions: It is nearly impossible to quit any addiction if you have unresolved anxiety and/or depression. I am very worried about you because this is your third admission to the hospital in the past month for DKA and DKA can kill you. I hope that you will be able to find a counselor you click with who can help you to cope with stress without resorting to alcohol. You blood sugars on the day of DC are very good on Lantus 20 units twice a day and 15 units with each meal. It is very improtant to be consistent with eating 3 meals a day when you are on insulin and you are a Type 1 diabetic. Skipping meals and not taking your insulin will end you up in the hospital frequently. The CT scan of the brain shows that your brain is somewhat shrunken for someone your age......this is probably due to the alcohol. The radiologist recommeded an MRI of the brain to better evaluate for water on the brain. Your primary care doctor can order this as an outpatient. I will send a copy of the discharge summary from the hospital to Dr. Cintron and also to COMFORT Phillips. Allergies/Adverse Reactions: Allergies zinc Allergy (Intermediate, Verified 05/13/19 23:11) Hives Medications to take at Discharge blood sugar diagnostic strips See Dose Instructions .ROUTE .MEDSUPPLY #120 ea 01/15/18 levetiracetam 500 mg tablet 500 mg PO BID 01/18/18 mirtazapine 15 mg tablet 30 mg PO QHS 01/18/18 Acamprosate Calcium 2 tab PO BID 04/13/19 Folic Acid 1 tab PO DAILY 30 Days #30 tab 04/16/19 Atorvastatin Calcium 20 mg PO DAILY 04/22/19 Multivitamins,Therapeutic [Multivitamin] 1 tab PO DAILYCM 04/22/19 Lisinopril [Zestril] 2.5 mg PO QDAY 04/24/19 Carvedilol 3.125 mg PO BID 05/13/19 Insulin Glargine [Lantus SoloStar Pen] 20 units SC BID pen 05/15/19 Insulin Lispro [Humalog KwikPen] 15 unit SC TIDAC insuln.pen 05/15/19 Magnesium Oxide [Mag-Ox 400] 400 mg PO DAILYCM #30 tab 05/15/19 The following prescriptions were given: Magnesium Oxide [Mag-Ox 400] 400 mg PO DAILYCM #30 tab Transmission Status: Pending to [facility]/pharmacy #[id number] Primary Care Physician: Moni Cintron MD [Primary Care Provider] - Please follow up with your Primary Care Physician in: 1-2 weeks Test Results: Test results from this visit will be discussed in further detail at your follow-up appointment, if applicable. Please Follow Up With: Dory Phillips NP-C Proposed Discharge Date: 05/15/19
[2019-05-15 11:06] VITALS: BP 129/88; PULSE 75; RESP 18; TEMP 37.1; O2SAT 100
--- NOTE | 2019-05-15 11:07 | CASEMGMT ---
Dr. Morillo called Behavioral Health to see pt. SW remains available to see pt if needed. CAMDEN Salcedo
--- NOTE | 2019-05-15 11:07 | PCM.DC.SUM ---
Discharge Date and Diagnosis - Problem List Patient Problems: Active and Suspected Problems (Last Updated 05/15/19 @ 10:56 by Elvira Morillo DO) Abrasion of face (Acute) Dehydration (Acute) Hypophosphatemia (Acute) Hypokalemia (Acute) Date of Admission: 05/14/19 Date of Discharge: 05/15/19 - Primary Discharge Diagnosis Active and Suspected Problems (Last Updated 05/15/19 @ 10:56 by Elvira Morillo DO) DKA Dehydration (Acute) Hypophosphatemia (Acute) Hypokalemia (Acute) Abrasion of face (Acute) New mild hydrocephalus on CT brain - Secondary Discharge Diagnosis Chronic Problems (Last Updated 05/15/19 @ 10:56 by Elvira Morillo DO) Anxiety and depression (Chronic) Tobacco dependence (Chronic) Diabetes type 1, uncontrolled (Chronic) Alcoholic cardiomyopathy (Chronic) EF was previously 15% but now 53% Seizure disorder Hospital Course and Treatment Imaging Results: Clinical Impression(s) from Imaging Studies Brain CT 05/13/19 23:23 IMPRESSION: Mild hydrocephalus, which was not present in 2016. I suspect that this represents communicating hydrocephalus, possibly due to central atrophy or normal pressure hydrocephalus, however, would recommend MRI for confirmation. No other evidence for significant abnormalities.. Electronically Signed: Placido Petersen MD at 0:15 EDT , Service support , Chest X-Ray 05/13/19 23:51 IMPRESSION: No acute findings in the lungs Electronically Signed: Raoul Ramesh MD at 0:43 EDT Tel , Service support , Laboratory Results - last 24 hr 05/13/19 05/14/19 05/14/19 23:20 05:00 08:30 Diff Path Review Reviewed Sodium Potassium Chloride Carbon Dioxide Anion Gap BUN Creatinine Estim Creat Clear Calc Est GFR (MDRD) Af Amer Est GFR (MDRD) Non-Af BUN/Creatinine Ratio Glucose Hemoglobin A1c 8.5 H Calcium Phosphorus 1.5 L Magnesium POC Glucose 05/14/19 05/14/19 05/14/19 11:25 13:36 13:43 Diff Path Review Sodium 138 Potassium 4.1 Chloride 105 Carbon Dioxide 22.0 Anion Gap 11 BUN 16 Creatinine 1.24 Estim Creat Clear Calc 72.79 Est GFR (MDRD) Af Amer 82 Est GFR (MDRD) Non-Af 68 BUN/Creatinine Ratio 12.9 Glucose 192 H Hemoglobin A1c Calcium 7.5 L Phosphorus Magnesium POC Glucose 206 H 147 H 05/14/19 05/14/19 05/15/19 17:10 21:28 05:20 Diff Path Review Sodium 139 Potassium 3.9 Chloride 106 Carbon Dioxide 24.0 Anion Gap 9 BUN 11 Creatinine 0.92 Estim Creat Clear Calc 106.61 Est GFR (MDRD) Af Amer 115 Est GFR (MDRD) Non-Af 95 BUN/Creatinine Ratio 11.9 Glucose 149 H Hemoglobin A1c Calcium 8.1 L Phosphorus 3.4 Magnesium 1.9 POC Glucose 148 H 173 H 05/15/19 07:41 Diff Path Review Sodium Potassium Chloride Carbon Dioxide Anion Gap BUN Creatinine Estim Creat Clear Calc Est GFR (MDRD) Af Amer Est GFR (MDRD) Non-Af BUN/Creatinine Ratio Glucose Hemoglobin A1c Calcium Phosphorus Magnesium POC Glucose [address] Husam Bangura-osteopathic neurologist Operations: None Procedures: None Summary of Care Provided: The patient is a 44-year-old male with a past medical history of type 1 diabetes mellitus, alcoholic cardiomyopathy (resolved), anxiety/depression, seizure disorder and tobacco dependence who presented to the emergency department at [facility] on 05/13/2019 complaining of high blood sugar, racing heart and confusion. He had nausea and vomiting for 1 day preceding presentation to the emergency room. Apparently the patient drank a large amount of alcohol 2 days prior to coming to the emergency room and passed out. He was not taking his insulin. He was recently admitted to the hospital from 04/22/2019 to 04/24/2019 for DKA. He was also admitted to the hospital on 04/13/2019 with DKA and suspected aspiration pneumonia. Vital signs at presentation to the emergency room were temp 98.6, pulse rate 115, blood pressure 109/52, respiratory rate 20 and he was 100% saturated on room air. White blood cell count was 29.2 with hemoglobin of 13.8 and normal platelets. Venous ABG showed a pH of 7.3. Sodium was low at 129 and the potassium was 5.6. Serum bicarb was 7 and the anion gap was 33. BUN was 20 and the creatinine was 1.88. Creatinine on 04/24/2019 was 0.72. Random blood sugar was 728. Troponin was elevated at 0.024. UA had 0 WBCs. Chest x-ray showed hyperinflation with no infiltrates, pleural effusions or pulmonary vascular congestion. A brain CT showed mild hydrocephalus which was not present in 2016. He was admitted to the intensive care unit and the DKA protocol was initiated. The following day the AG closed and he was started on Lantus 20 BID and 15 units Humalog with each meal. He was transferred to a medical surgical floor. On the morning of 05/15/2019 the patient was afebrile with stable vital signs. Blood sugars were well controlled. BMP was within normal limits. Phosphorus and magnesium were normal. We had a long discussion about how important the treatment of anx and depression are in patients trying to maintain sobriety. He does not feel that the counselling he is getting is helping him. Living with his parents and is hiding his drinking from them but, states they know he still drinks. Not currently working and relies on his parents for support. Has been to 180 in the past but, he does not have a car and relies on his parents for transportation. No considering another inpt program at this point and does not want to talk with [facility]. He was seen in consult prior to DC by Anand from [facility] and given resources for counselling and alcohol rehab. He will follow up with Dr. Cintron to discuss possible MRI to better evaluate for the cause of the mild hydrocephalus reported on the CTB. 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 PHYSICAL EXAM: GENERAL: alert, oriented X 3, Cooperative, NAD, speaks slowly ORAL: moist mucosa, no mucosal lesions NECK: No JVD, supple, trachea midline LUNGS: CTA, symmetric chest expansion HEART: RRR, Normal S1 and S2, no rub, no gallop ABDOMEN: soft, NT, ND, BS present, no guarding with palpation EXTREMITIES: no edema, no cyanosis, no calf tenderness SKIN: No rashes, no breakdown NEUROLOGIC: no focal neurologic deficits PSYCH: appropriate, normal affect, pleasant This note was generated with [employer] software. It may contain incorrect words, spelling, and punctuation that were not noted in checking the note before signing. Patient Problems: Active and Suspected Problems (Last Updated 05/15/19 @ 10:56 by Elvira Morillo DO) Abrasion of face (Acute) Dehydration (Acute) Hypophosphatemia (Acute) Hypokalemia (Acute) - Physical Exam Vital Signs Temp Pulse Resp BP Pulse Ox 97.7 F L 72 18 114/82 H 100 05/15/19 07:48 05/15/19 07:48 05/15/19 07:48 05/15/19 07:48 05/15/19 07:48 Oxygen Delivery Method Room Air Weight: 160 lb 7.944 oz Body Mass Index (BMI) 20.0 Finger Stick Blood Glucose 206 Intake and Output for Last 24 Hours 05/13/19 05/14/19 05/15/19 23:59 23:59 23:59 Intake Total 4016.8 / 4016.8 873 / 873 Output Total 600 / 600 800 / 800 Balance 3416.8 / 3416.8 73 / 73 Laboratory Tests Past 24 Hrs 05/13/19 05/14/19 05/14/19 23:20 05:00 08:30 Diff Path Review Reviewed Sodium Potassium Chloride Carbon Dioxide Anion Gap BUN Creatinine Estim Creat Clear Calc Est GFR (MDRD) Af Amer Est GFR (MDRD) Non-Af BUN/Creatinine Ratio Glucose Hemoglobin A1c 8.5 H Calcium Phosphorus 1.5 L Magnesium 05/14/19 05/15/19 13:36 05:20 Diff Path Review Sodium 138 139 Potassium 4.1 3.9 Chloride 105 106 Carbon Dioxide 22.0 24.0 Anion Gap 11 9 BUN 16 11 Creatinine 1.24 0.92 Estim Creat Clear Calc 72.79 106.61 Est GFR (MDRD) Af Amer 82 115 Est GFR (MDRD) Non-Af 68 95 BUN/Creatinine Ratio 12.9 11.9 Glucose 192 H 149 H Hemoglobin A1c Calcium 7.5 L 8.1 L Phosphorus 3.4 Magnesium 1.9 POC Glucose 05/15/19 05/14/19 05/14/19 07:41 21:28 17:10 POC Glucose 154 H 173 H 148 H 05/14/19 05/14/19 13:43 11:25 POC Glucose 147 H 206 H Discharge Activity: Return to Normal Activity Call your doctor if you observe: Fever of 101 or Higher, Dizziness, Fainting spells, Chest pain, - - nausea, vomiting, consistent blood sugars over 250 or frequent blood sugars < 90 Home Medications: Medications to take at Discharge blood sugar diagnostic strips See Dose Instructions .ROUTE .MEDSUPPLY #120 ea 01/15/18 levetiracetam 500 mg tablet 500 mg PO BID 01/18/18 mirtazapine 15 mg tablet 30 mg PO QHS 01/18/18 Acamprosate Calcium 2 tab PO BID 04/13/19 Folic Acid 1 tab PO DAILY 30 Days #30 tab 04/16/19 Atorvastatin Calcium 20 mg PO DAILY 04/22/19 Multivitamins,Therapeutic [Multivitamin] 1 tab PO DAILYCM 04/22/19 Lisinopril [Zestril] 2.5 mg PO QDAY 04/24/19 Carvedilol 3.125 mg PO BID 05/13/19 Insulin Glargine [Lantus SoloStar Pen] 20 units SUBCUT BID pen 05/15/19 Insulin Lispro [Humalog KwikPen] 15 unit SUBCUT TIDAC insuln.pen 05/15/19 Magnesium Oxide [Mag-Ox 400] 400 mg PO DAILYCM #30 tab 05/15/19 Following Prescrptions Were Given to Patient: Magnesium Oxide [Mag-Ox 400] 400 mg PO DAILYCM #30 tab Transmission Status: Received by [facility]/pharmacy #[id number] Primary Care Physician: Moni Cintron MD [Primary Care Provider] - Please follow up with your Primary Care Physician in: 1-2 weeks Please Follow Up With: Dory Phillips [employer] INS[employer] UNDERWRITER-C Patient Instructions: Your Body's Response to Anxiety, Depression Affects Your Mind and Body, What Can Cause Depression?, Depression: Tips to Help Yourself, Treating Anxiety Disorders with Therapy, Understanding Anxiety Disorders, Treating Anxiety Disorders with Medication Disposition: Home Minutes spent on discharge:: 40 Patient Condition:: Good Medical Necessity - Tobacco Use Smoking Status: Current every day smoker Tobacco Use: Cigarettes Meaningful Use Info Meaningful Use Diagnoses (Choose all that apply): None applicable Code Visit Inpatient E&M: 26231 Disch Hosp
--- NOTE | 2019-05-15 12:06 | BH.NOTE ---
BH: Inpatient Note - Notes Behavioral Health Inpatient Note: 05/15/19 12:06 Referral to [facility] Behavioral health due to long-standing depression and anxiety as well as Alcohol Abuse. Spoke with pt alone in his room. Cooperative and pleasant. Alert and oriented. Thoughts are linear and logical. No emily or delusions noted. Pt describes his depression and anxiety as mild to moderate. Denies any suicidal ideations, plan, or intent. Denies any desire to be or passive thoughts of . Denies that mental health symptoms impact daily functioning. Reports that he is currently linked with counseling and psychiatrist through [facility] however does not find this to be helpful. Admits to binge drinking 1-2 times per week. Currently living with parents and has to sneak alcohol into the house and usually drinks at night when they are asleep. Admits that they know that he continues to drink. Can drink a bottle of vodka during a binge. Alcohol use impacting his memory and will often forget to eat properly or take insulin leading to DKA. Reports diagnosed with diabetes 18 years ago. Reports alcohol is an obstacle to accomplishing goals. Has been to treatment at [facility] in the past. Competed a 60 day residential program 4 years ago.Has participated in AA with little benefit. Low motivation to make changes per pt report. Recommended pursuing substance abuse treatment through residential or IOP. Gave pt local resources for both.
[2019-05-15 12:10] LABS: Bedside Glucose 118 mg/dL (70-110)
== END 2019-05-15 14:01 | disposition home or self-care (01) | DRG 638 ==
LOC: ED 23:59 → ICU 05-14 01:19 → MS2 05-14 17:40 → ICU 05-16 08:27 → MS2 05-16 08:27
PROVIDERS: Internal Medicine; Admitting Provider Family Medicine; Emergency Provider Emergency Medicine; Family Provider Internal Medicine; PCP Internal Medicine; Visit Provider Family Medicine
DX: E10.10 Type 1 diabetes mellitus with ketoacidosis without coma (principal); G91.9 Hydrocephalus, unspecified; N17.9 Acute kidney failure, unspecified; G40.909 Epilepsy, unspecified, not intractable, without status epilepticus; E83.39 Other disorders of phosphorus metabolism; S00.31XA Abrasion of nose, initial encounter; S00.81XA Abrasion of other part of head, initial encounter; W19.XXXA Unspecified fall, initial encounter; F17.210 Nicotine dependence, cigarettes, uncomplicated; F32.9 Major depressive disorder, single episode, unspecified; F41.9 Anxiety disorder, unspecified; E86.0 Dehydration; Z79.4 Long term (current) use of insulin; F10.10 Alcohol abuse, uncomplicated; Y90.0 Blood alcohol level of less than 20 mg/100 ml
CPT/HCPCS: 36415; 70450; 71045; 80048; 80053; 80320; 81001; 82009; 82803; 82962; 83036; 83735; 84100; 84484; 85025; 93005; 99285; 99406; J7030; J7040; A4216; G0480

== ENCOUNTER → 2019-05-21 07:53 | Outpatient (CLI) | payer MEDICARE, MEDICAID, SELFPAY ==
[2019-04-30 09:17] VITALS: BMI 21.2
--- NOTE | 2019-05-21 07:54 | ECHOD_ITS ---
Reason For Study: DYSPNEA/SOB Procedure This was a 2D Doppler, Color Flow transthoracic echocardiogram. Myocardial strain analysis was performed in this exam to aid in the assessment of cardiac function. Exam performed in department. Left Ventricle Normal LV size. The estimated ejection fraction is 50 %. Left ventricular systolic function is lower limits of normal. The global longitudinal strain = -12.8% (abnormal). Normal diastology for age. There is borderline global hypokinesis of the left ventricle. Right Ventricle Normal RV size. Normal systolic function. Atria Normal left atrium. Normal right atrium. Mitral Valve Normal mitral valve. Tricuspid Valve Normal tricuspid valve. Aortic Valve Normal aortic valve. Trisinus/trileaflet aortic valve. Pulmonic Valve Normal pulmonic valve. Great Vessels Normal aortic root. The pulmonary artery is normal size. Normal inferior vena cava. Pericardium/Pleural No pericardial effusion. MMode/2D Measurements & Calculations LVIDd: 4.3 cm IVSd: 0.87 cm Ao root diam: 2.9 cm LVIDs: 3.5 cm LVPWd: 0.91 cm RVDd: 3.4 cm FS: 17.9 % LAV(MOD-bp): 31.3 ml LVAd ap4: 28.0 cm2 SV(MOD-sp4): 38.5 ml LAV(MOD-bp) Indexed: 16.4 ml/m2 EDV(MOD-sp4): 89.1 ml LAV(MOD-sp2): 28.9 ml EDV(sp4-el): 91.3 ml LAV(MOD-sp4): 27.5 ml LVAs ap4: 19.3 cm2 ESV(MOD-sp4): 50.7 ml ESV(sp4-el): 49.9 ml EF(MOD-sp4): 43.1 % EF(sp4-el): 45.3 % SV(sp4-el): 41.4 ml LA A4 area: 13.6 cm2 LA dimension(2D): 2.8 cm RA A4 area: 13.5 cm2 Time Measurements MV dec time: 0.26 sec Doppler Measurements & Calculations MV E max ibrahima: 52.8 cm/sec Lat Peak E' Ibrahima: 7.1 cm/sec Med Peak E' Ibrahima: 7.2 cm/sec MV A max ibrahima: 47.3 cm/sec E/E' lat: 7.4 E/E' med: 7.3 MV E/A: 1.1 Ao V2 max: 103.8 cm/sec LV V1 max: 91.0 cm/sec PA V2 max: 93.1 cm/sec Ao max P.3 mmHg LV V1 max P.3 mmHg TR max ibrahima: 221.9 cm/sec TR max P.7 mmHg Interpretation Summary Normal LV size. The estimated ejection fraction is 50 %. Left ventricular systolic function is lower limits of normal. The global longitudinal strain = -12.8% (abnormal). Compared to prior study, there is no significant change. Ordering Physician: Tomi Ornelas Referring Physician: KRISTEN LUCAS Performed By: Luisana Radford RDCS
== END ==
PROVIDERS: Family Provider Internal Medicine; PCP Internal Medicine; Referring Provider Internal Medicine Cardiovascular Disease; Visit Provider Internal Medicine Cardiovascular Disease
DX: I42.6 Alcoholic cardiomyopathy (principal)
CPT/HCPCS: 93306

== ENCOUNTER 2019-08-28 19:32 | Inpatient (IN) | payer MEDICARE, MEDICAID, SELFPAY ==
[2019-08-28] VITALS (11 sets, daily range): BP systolic 129–181; BP diastolic 41–67; PULSE 109–122; RESP 20–30; TEMP 35.9–37.3; O2SAT 100; BMI 20.3; BMI 20.8; BMI 20.9
[2019-08-28 19:51] LABS: Bedside Glucose > 500 mg/dL (70-110)
--- NOTE | 2019-08-28 20:10 | ED.DCSUM_ITS ---
- ER Visit Summary Date of Service: 08/28/19 Chief Complaint: Nausea and vomiting. I think I am in DKA. History of Present Illness: The patient is a 44 M Hx. alcoholism, type 1 diabetes and coronary artery disease. States he did drink heavily several days ago. By today's event nausea vomiting. No diarrhea. No melena. No hematemesis. No abdominal pain or fever. Was concerned his blood sugars start going up greater than 500 and thinks he might be in DKA again. Physical Examination: Middle-aged male. Vital signs stable. He does look pale. HEENT exam atraumatic. Dry mucous membranes. Neck nontender no lymphadenopathy. Lungs clear to auscultation bilaterally. Heart tachycardic rate about 120 no murmur. Chest were nontender. Abdomen soft and nontender. Normal bowel sounds no peritoneal signs. No signs of obstruction. No epigastric pain. Extremities moves all 4. Calves nontender without edema. Back is nontender. Neurologically is awake and alert. Test Results: White count 27,500. Hemoglobin 15 hematocrit 45. No bands. Electrolytes sodium 126 chloride 88 CO2 of 11 anion gap 27 glucose 502 consistent with acute DKA BUN of 21 creatinine 1.35. Lipase normal moderate ketones. Chest x-ray one view read by myself shows no acute abnormality. Normal cardiac silhouette mediastinum. Pending radiology interpretation also. No infiltrate. Hospitalist also wanted urinalysis that was ordered but not done prior to patient being taken to the ICU. Hospitalist can follow-up that result. Emergency Department Course and Treatment: Patient treated with 2 L normal saline. IV Zofran. Labs are being obtained. Patient be started on insulin drip. Third liter of fluid will be started also. I have the hospitalist on page for admission. Treatment Plan: IV fluids and insulin drip. Nausea meds as needed. ICU admission. Disposition: ICU admission. Impression: Acute hyperglycemia secondary to acute DKA Nausea and vomiting History of type 1 insulin-dependent diabetes History of alcoholism This note was generated with [employer] dictation software. It may contain incorrect words, spelling, and punctuation that were not noted in review of the chart prior to signing ED Disposition - Plan for ED Patient: Disposition: Acute [facility]
[2019-08-28] MEDS: 0.9% Normal Saline 1,000 ML 1000 ML IV (20:16)
[2019-08-28] MEDS: 0.9% Normal Saline 1,000 ML 999 ML IV ×2 (20:18→21:43)
[2019-08-28] MEDS: Ondansetron 4 MG/2 ML Vial IV (20:18)
[2019-08-28 20:21] LABS: Absolute Lymphocyte Count 1.83 X10^3/uL (0.83-4.51); Absolute Neutrophil Count 22.7 X10^3/uL (2.0-7.7); Basophil# 0.19 X10^3/uL; Basophil% 0.7 % (0-1); Eosinophil# 0.04 X10^3/uL; Eosinophils% 0.1 % (0-5); Hematocrit 45.7 % (40-54); Hemoglobin 15.1 g/dL (13.0-16.5); Lymphocyte # 1.83 X10^3/ul (4.0); Lymphocyte % 6.7 % (19-41); Mean Corpuscular Hgb 34.3 pg (27.0-32.0); Mean Corpuscular Volume 103.9 fL (80-94); Mean Platelet Vol. 10.2 fl (6.2-12.0); Monocyte# 2.43 X10^3/uL; Monocyte% 8.8 % (0-10); NRBC Flagged by Analyzer 0 % (0-5); Neutrophil # 22.72 X10^3/uL (2.7-7.7); Neutrophil % 82.6 % (47-70); POSITIVE DIFFERENTIAL YES; POSITIVE MORPHOLOGY YES; Platelet Count 362 K/mm3 (150-450); RBC Distribution Width CV 12.4 % (11.6-14.6); White Blood Count 27.5 K/mm3 (4.4-11.0)
[2019-08-28 20:25] LABS: Differential Indicated SCAN CRITERIA MET
[2019-08-28 20:36] LABS: Anion Gap 27 (5-15); BUN 21 mg/dL (7-18); BUN/Creat Ratio 15.6 RATIO (10-20); Calcium,Total 9.3 mg/dL (8.5-10.1); Chloride 88 mmol/L (98-107); Creatinine, Serum 1.35 mg/dL (0.70-1.30); EST Glomerular Filtration Rate 61 mL/min (>60); Est Glom Filt Rate - Afr Amer 74 mL/min (>60); Glucose 502 mg/dL (74-106); Lipase 44 U/L (73-393); Potassium 5.1 mmol/L (3.5-5.1); Sodium Level 126 mmol/L (136-145)
[2019-08-28 20:44] LABS: Differential Comment SCANNED
--- NOTE | 2019-08-28 21:40 | PCM.HP.STD ---
Problem List (1) Anxiety and depression Status: Chronic (2) Tobacco dependence Status: Chronic (3) DKA (diabetic ketoacidoses) Status: Acute Qualifiers: Diabetes mellitus type: type 1 Diabetes mellitus complication detail: without coma Qualified Code(s): E10.10 - Type 1 diabetes mellitus with ketoacidosis without coma (4) Gastroenteritis Status: Acute (5) Nicotine dependence Status: Chronic History of Present Illness Date of Admission: 08/28/19 Chief Complaint: nausea and vomiting The patient is a 44 year old M with a significant history of type 1 diabetes; nicotine dependence; dilated cardiomyopathy s/p vest use; and seizure disorder who presented to emergency department with nausea and vomiting that started on the same day of presentation. Associated with his symptoms is diarrhea. He reports 3 episodes of loose stools. Further he has abdominal pain; headache and no nausea. He reports that on the a.m. of the day of presentation his blood glucose was 235 and he appropriately covered himself with insulin thereafter he did not take any more insulin because he was vomiting. He reports many episodes of drinking water and vomiting. With his symptoms he thought that he may be having DKA and he was pressured to come to the hospital by his mother. At the emergency department patient was found to have serum ketones and anion gap metabolic acidosis. Patient was started on IV fluids and insulin drip. Past Medical History Past Medical History (Chronic Problems): Chronic Problems (Last Reviewed 08/29/19 @ 04:57 by Enrique Gaitan MD) Anxiety and depression (Chronic) Tobacco dependence (Chronic) Diabetes type 1, uncontrolled (Chronic) DKA w/ encephalopathy 03/2019 Alcoholic cardiomyopathy (Chronic) Nicotine dependence (Chronic) Medical History: Medical History (Last Reviewed 08/29/19 @ 04:57 by Enrique Gaitan MD) Diabetes type 1, uncontrolled (Chronic) E10.65 DKA w/ encephalopathy 03/2019 Alcoholic cardiomyopathy (Chronic) I42.6 Nicotine dependence (Chronic) F17.200 Acute renal failure N17.9 Alcohol abuse F10.10 Anxiety F41.9 Dental caries K02.9 Depression F32.9 Diabetic ketoacidosis Onset Date: 03/2019 E11.10 Dilated cardiomyopathy I42.0 Elevated liver enzymes R74.8 H/O sepsis Z86.19 Hyponatremia E87.1 Lactic acidosis E87.2 Left atrial enlargement I51.7 Mycoplasma pneumonia J15.7 NSVT (nonsustained ventricular tachycardia) I47.2 Neuropathy G62.9 Prolonged QT interval R94.31 Seizure disorder G40.909 Steatosis of liver K76.0 Thrombocytopenia D69.6 ELIZABETH (acute kidney injury) N17.9 Metabolic encephalopathy Onset Date: 03/2019 G93.41 Diabetes type 1, controlled E10.9 dx : 08/2001 last exacerbation : dka : 05/13 hypoglycemic episode : never er visit : 05/13 Allergies zinc Allergy (Intermediate, Verified 08/28/19 19:35) Hives Home Medications: Ambulatory Orders Medication Instructions Recorded blood sugar diagnostic strips See Dose Instructions .ROUTE 01/15/18 .MEDSUPPLY #120 ea levetiracetam 500 mg tablet 500 mg PO BID 01/18/18 mirtazapine 15 mg tablet 30 mg PO QHS 01/18/18 Folic Acid 1 tab PO DAILY 30 Days #30 tab 04/16/19 Atorvastatin Calcium 20 mg PO DAILY 04/22/19 Lisinopril [Zestril] 2.5 mg PO QDAY 04/24/19 Carvedilol 3.125 mg PO BID 05/13/19 Insulin Glargine,Hum.rec.anlog 25 unit SUBCUT DAILY 08/28/19 [Basaglar Kwikpen U-100] Insulin Lispro [Humalog KwikPen] unit SUBCUT TIDAC 08/28/19 Surgical History: Surgical History (Last Reviewed 08/29/19 @ 04:57 by Enrique Gaitan MD) History of left heart catheterization Onset Date: 04/18/16 Z98.890 Hx of tonsillectomy Z98.890, Z90.89 Surgical History: noncontributory Psychiatric History: No pertinent psych hx, Anxiety, Depression Smoking Status: Current every day smoker Tobacco Use: Cigarettes Alcohol: Heavy - *Family History Maternal Family History: Family History (Last Reviewed 08/29/19 @ 04:58 by Enrique Gaitan MD) Mother Arthritis Father Diabetes Grandfather Diabetes Grandmother Diabetes Review of Systems Constitutional: Denies: Chills, Fever, Weight Change HEENT: Reports: Head Aches. Denies: Sinus Congestion, Sinus Drainage Cardiovascular: Denies: Chest Pain, Palpitations Respiratory: Denies: Cough, Shortness of breath at rest, Sputum production Gastrointestinal: Reports: Abdominal Pain, Diarrhea, Nausea, Vomiting Genitourinary: Denies: Dysuria Musculoskeletal: Denies: Joint Pain, Joint Tenderness Skin: Denies: Rash, Wounds Neurological: Denies: Numbness, Tingling, Focal weakness Psychiatric: Denies: Anxiety, Depression, Homicidal Ideations, Suicidal Ideations Endocrine: Reports: Polydipsia Hematologic/ Lymphatic: Denies: Easy Bruising, Easy Bleeding VTE Information - Inpt Only VTE Present on Admission: No VTE Mechan Device Prophylaxis: None VTE Pharm Prophylaxis ordered?: No Reason prophylaxis not ordered:: Treatment Not Indicated - Low risk. Patient Problems: Active and Suspected Problems (Last Reviewed 08/29/19 @ 04:57 by Enrique Gaitan MD) Gastroenteritis (Acute) - Physical Exam General: Alert, Oriented x3, Cooperative HEENT: Atraumatic, PERRLA, EOMI, Normocephalic Neck: Supple, No JVD, Negative Carotid Bruits Lungs: Clear to auscultation, Normal air movement, No rhonchi, No wheeze, No rales, Tachypneic, Using Accessory Muscles Cardiovascular: Regular Rhythm, Normal S1, Normal S2, No murmurs, Tachycardic Abdomen: Bowel Sounds Present, Soft, Non Tender Extremities: No edema, Capillary Refill Less than 3 Seconds Skin: No rashes, No breakdown Musculoskeletal: No Tenderness to Palpation of Joints or Extremities Neurological: Cranial nerves II-XII grossly intact Psych/Mental Status: - - Unclear speech Vital Signs Temp Pulse Resp BP Pulse Ox 96.7 F L 109 H 24 H 129/41 H 100 08/28/19 19:32 08/28/19 21:06 08/28/19 21:06 08/28/19 21:06 08/28/19 21:06 Oxygen Delivery Method Room Air Weight: 68.039 kg Body Mass Index (BMI) 20.3 Finger Stick Blood Glucose 521 Intake and Output for Last 24 Hours 08/26/19 08/27/19 08/28/19 23:59 23:59 23:59 Intake Total 1000 / 1000 Balance 1000 / 1000 Laboratory Tests Past 24 Hrs 08/28/19 08/28/19 08/28/19 19:45 19:45 19:45 WBC 27.5 H RBC 4.40 L Hgb 15.1 Hct 45.7 MCV 103.9 H MCH 34.3 H MCHC 33.0 RDW Std Deviation 48.0 H RDW Coeff of Omayra 12.4 Plt Count 362 MPV 10.2 Immature Gran % (Auto) 1.100 H Neut % (Auto) 82.6 H Lymph % (Auto) 6.7 L [place] % (Auto) 8.8 Eos % (Auto) 0.1 Baso % (Auto) 0.7 Absolute Neuts (auto) 22.7 H Absolute Lymphs (auto) 1.83 Nucleated RBC % 0 Differential Comment SCANNED Diff Path Review May foll Sodium 126 L Potassium 5.1 Chloride 88 L Carbon Dioxide 11.0 L Anion Gap 27 H BUN 21 H Creatinine 1.35 H Estim Creat Clear Calc 67.90 Est GFR (MDRD) Af Amer 74 Est GFR (MDRD) Non-Af 61 BUN/Creatinine Ratio 15.6 Glucose 502 H* Calcium 9.3 Lipase 44 L Acetone Level MODERATE H POC Glucose 08/28/19 19:39 POC Glucose > 500 H* Assessment/Plan All Active Problems (Last Reviewed 08/29/19 @ 04:57 by Enrique Gaitan MD) Gastroenteritis (Acute) DKA (diabetic ketoacidoses) (Acute) Hyperkalemia (Resolved) Hyponatremia (Resolved) Metabolic encephalopathy (Resolved) The patient is a 44 year old M with a significant history of type 1 diabetes; nicotine dependence; dilated cardiomyopathy s/p vest; and seizure disorder who presented to emergency department with nausea; vomiting; diarrhea; abdominal pain; headache; polydipsia; and anorexia and found to have serum ketones and anion gap metabolic acidosis concern for DKA likely from acute gastroenteritis DKA His DKA could be secondary to acute gastroenteritis or from missing doses of his insulin. Serum glucose: 502 acetone level: Moderate Anion gap of 27 Sodium 126, . Corrected sodium 132 Insulin drip started from emergency department; continue Completed IV bolus of normal saline and normal saline infusion Because of potassium of 5.1 we will start patient on half-normal saline with potassium. BMP every 4 hours to calculate anion gap. N.p.o. for now except meds if patient can tolerate Patient will be placed at the ICU ICU electrolyte protocol ordered A1c ordered. Zofran as needed. Fire Equipment Operator consult. Acute gastroenteritis Likely viral Supportive treatment with IV fluids and PRN antiemetics with Zofran. Neutrophilic leukocytosis On presentation his white count was 27.5. Of note patient has bandemia. Although elevated white count can be expected from stress secondary to DKA this appears to be severely elevated. Discussed with emergency department doctor to obtain chest x-ray and urinalysis. Chest x-ray was unremarkable. Urinalysis is pending. Trend CBC. No obvious source of infection at this time. History of alcohol abuse Patient binges on vodka We will put patient on CIWA protocol with Ativan; multivitamins and folic acid Hypocalcemia On presentation his calcium was 9.3. With IV hydration his calcium has declined. Check ionized calcium and albumin. ELIZABETH On presentation his creatinine was 1.35. Creatinine about 4 months ago was 0.92. Review of old records shows a creatinine baseline around 0.72 to 1.01 with previous episodes of ELIZABETH. With IV fluids his creatinine is noted to be improving. BUN over creatinine on admission was 15.6 pointing towards a renal etiology. However cannot rule out prerenal etiology from vomiting and diarrhea. Received IV fluids. Continue IV fluids. Trend BMP. Avoid nephrotoxic's. Hold lisinopril for now. Hypertension On presentation his blood pressure was not within goal Lisinopril held secondary ELIZABETH. Trend blood pressure. PRN labetalol ordered. Seizure disorder Keppra continued Tobacco counseled Nicotine patch ordered DVT prophylaxis Low risk. Code Visit Inpatient E&M: 21999 Init Hosp L3
--- NOTE | 2019-08-28 21:50 | RAD_ITS ---
HISTORY:HYPERGLYCEMIC/ DKA SYMPTOMS SINCE EARLY THIS MORNING. HYPEREMESIS AND LABORED BREATHING HYPERGLYCEMIC/ DKA SYMPTOMS SINCE EARLY THIS MORNING. HYPEREMESIS AND LABORED BREATHING EXAM: XR Chest 1 View: COMPARISON: May 13, 2019 FINDINGS: # of images incl. paperwork: 1 LINES/DEVICES: None. LUNGS: Radiographically clear. No consolidation, edema or effusion. No pneumothorax. MEDIASTINUM AND CARDIOVASCULAR STRUCTURES: Cardiac silhouette not enlarged. BONES AND SOFT TISSUES: Unremarkable. RAD/Chest 1 View IMPRESSION: No radiographic evidence of acute cardiopulmonary disease. at 2247 Reported and signed by: Belem Waldrop DO Electronically Signed: Belem Waldrop DO at 22:46 EDT Tel , Service support ,
[2019-08-28 21:55] LABS: Bedside Glucose > 500 mg/dL (70-110)
[2019-08-28 23:06] LABS: Bedside Glucose 439 mg/dL (70-110)
[2019-08-28 23:56] LABS: Bedside Glucose 384 mg/dL (70-110)
[2019-08-29] VITALS (19 sets, daily range): BP systolic 98–145; BP diastolic 49–73; PULSE 81–112; RESP 16–23; TEMP 36.6–37.3; O2SAT 97–100
[2019-08-29 00:05] LABS: Anion Gap 25 (5-15); BUN 19 mg/dL (7-18); BUN/Creat Ratio 15.2 RATIO (10-20); Calcium,Total 7.1 mg/dL (8.5-10.1); Chloride 100 mmol/L (98-107); Creatinine, Serum 1.25 mg/dL (0.70-1.30); EST Glomerular Filtration Rate 67 mL/min (>60); Est Glom Filt Rate - Afr Amer 81 mL/min (>60); Estimated Creatinine Clearance 75.19 ml/min; Glucose 346 mg/dL (74-106); Potassium 4.7 mmol/L (3.5-5.1); Sodium Level 131 mmol/L (136-145)
[2019-08-29 00:56] LABS: Bedside Glucose 315 mg/dL (70-110)
[2019-08-29 02:01] LABS: Bedside Glucose 237 mg/dL (70-110)
[2019-08-29] MEDS: Ondansetron 4 MG/2 ML Vial IV ×3 (02:58→18:27)
[2019-08-29] MEDS: LORazepam 2 MG/ML Syringe IV (02:58)
[2019-08-29 03:02] LABS: Absolute Lymphocyte Count 1.55 X10^3/uL (0.83-4.51); Absolute Neutrophil Count 20.4 X10^3/uL (2.0-7.7); Basophil# 0.06 X10^3/uL; Basophil% 0.3 % (0-1); Eosinophil# 0.01 X10^3/uL; Hematocrit 38.8 % (40-54); Hemoglobin 13.4 g/dL (13.0-16.5); Lymphocyte # 1.55 X10^3/ul (4.0); Lymphocyte % 6.6 % (19-41); Mean Corp Hgb Conc 34.5 g/dL (32-36); Mean Corpuscular Hgb 34.4 pg (27.0-32.0); Mean Corpuscular Volume 99.5 fL (80-94); Mean Platelet Vol. 9.4 fl (6.2-12.0); Monocyte# 1.36 X10^3/uL; Monocyte% 5.8 % (0-10); NRBC Flagged by Analyzer 0 % (0-5); Neutrophil % 86.5 % (47-70); POSITIVE DIFFERENTIAL YES; Platelet Count 295 K/mm3 (150-450); RBC Distribution Width CV 12.3 % (11.6-14.6); RBC Distribution Width SD 44.6 fl (35.1-43.9); White Blood Count 23.6 K/mm3 (4.4-11.0)
[2019-08-29 03:08] LABS: Mucous, Urine 0 SEEN /hpf (<or=2+); White Blood Cells 0 SEEN /hpf (0-5)
[2019-08-29 03:10] LABS: Differential Indicated SCAN CRITERIA MET
[2019-08-29 03:16] LABS: Bedside Glucose 214 mg/dL (70-110)
[2019-08-29 03:18] LABS: Anion Gap 22 (5-15); BUN 17 mg/dL (7-18); BUN/Creat Ratio 13.9 RATIO (10-20); Calcium,Total 7.2 mg/dL (8.5-10.1); Chloride 105 mmol/L (98-107); Creatinine, Serum 1.22 mg/dL (0.70-1.30); EST Glomerular Filtration Rate 69 mL/min (>60); Est Glom Filt Rate - Afr Amer 83 mL/min (>60); Estimated Creatinine Clearance 77.04 ml/min; Glucose 208 mg/dL (74-106); Potassium 4.7 mmol/L (3.5-5.1); Sodium Level 137 mmol/L (136-145)
[2019-08-29 03:27] LABS: Differential Comment SCANNED
[2019-08-29 03:30] LABS: Color, Urine Yellow (Yellow); Glucose, Dipstick 1000 mg/dl (Normal); Leukocyte Esterase-Dipstick Negative /ul (Negative); Nitrite-Dipstick Positive (Negative); Occult Blood-Urine 25 /ul (Negative); Protein-Dipstick 30 mg/dl (Negative); Specific Gravity, Urine 1.025 (1.002-1.030); Urine Bilirubin Dipstick Negative (Negative); Urine Clarity Clear (Clear); Urine Urobilinogen Normal (Normal)
[2019-08-29 03:40] LABS: Ketone-Dipstick 150 mg/dl (Negative)
[2019-08-29 03:41] LABS: Bacteria RARE /hpf (None Seen); Red Blood Cells-Urine 0-5 SEEN /hpf (0-5); Squamous Epithelial Cells - UA 0-5 SEEN /hpf (0-5)
[2019-08-29 03:42] LABS: Albumin, Serum 3.6 g/dL (3.2-5.0)
[2019-08-29 04:01] LABS: Bedside Glucose 212 mg/dL (70-110)
[2019-08-29 06:21] LABS: Bedside Glucose 211 mg/dL (70-110)
[2019-08-29 06:29] LABS: Anion Gap 16 (5-15); BUN 16 mg/dL (7-18); BUN/Creat Ratio 12.6 RATIO (10-20); Calcium,Total 7.3 mg/dL (8.5-10.1); Chloride 104 mmol/L (98-107); Creatinine, Serum 1.27 mg/dL (0.70-1.30); EST Glomerular Filtration Rate 66 mL/min (>60); Est Glom Filt Rate - Afr Amer 79 mL/min (>60); Estimated Creatinine Clearance 74.57 ml/min; Glucose 260 mg/dL (74-106); Potassium 5.2 mmol/L (3.5-5.1); Sodium Level 136 mmol/L (136-145)
[2019-08-29 07:15] LABS: Bedside Glucose 218 mg/dL (70-110)
[2019-08-29 07:45] LABS: Hemoglobin A1c 8.5 % (4.2-6.3)
[2019-08-29] MEDS: Thiamine Hydrochloride 100 MG Tablet PO ×2 (08:18→16:46)
[2019-08-29] MEDS: Folic Acid 1 MG Tablet PO (08:18)
[2019-08-29] MEDS: Carvedilol 3.125 MG TABLET PO ×2 (08:18→16:46)
[2019-08-29] MEDS: levETIRAcetam 500 MG Tablet PO ×2 (08:19→22:24)
[2019-08-29 08:30] LABS: Bedside Glucose 217 mg/dL (70-110)
[2019-08-29 09:10] LABS: Bedside Glucose 199 mg/dL (70-110)
--- NOTE | 2019-08-29 09:31 | CASEMGMT ---
SW met w/pt in room in regard to how he had been managing at home and discharge plan. PCP: Dr. Moni Cintron Specialists: [facility](sees her in [place]), [facility] intermittently Preferred Pharmacy: [facility] in [place] Insurance/Prescription plan: Medicare/Medicaid LW/POA: None LNOK: Parents Living arrangements: Pt lives at home w/his parents. Transportation: Does not have a car, parents take pt to appointments Prior level of care: Pt independent with ADLs, he cooks sometime and his parents cook sometimes DME: Pt reports to have all needed diabetic supplies HHC/SNF: Pt was in a fdc in [place] after a heart attack four years ago Mental Health: Pt confirms has diagnosis of depression and anxiety. Pt denies any suicidal ideation/thoughts at this time. Pt is on Mertazapime and another medication which he cannot remember the name. He states that [facility] prescribes the medications, he has not followed up with them in some time however, at least a few months. Pt still has refills on his medications, states when he runs out plans to go back to [facility] at that time. Substance Abuse: Pt states has not used marijuana or cocaine in at least 6 months. Pt states he is drinking every other day. Pt is aware that drinking impacts his blood sugar. Pt states has been to [facility]), AA, and at one point went to the [facility]. Pt does not think that any of these programs have helped him. Pt states he was kicked out of the [facility] as he had a false positive urine test. He expressed frustration with this as he paid to be there and then was asked to leave. Interventions/Discharge plan: SW spoke w/pt about getting [facility], and about treatment for alcohol use. Pt states he will call [facility] himself, declined any assist from SW for getting an appointment. SW also asked pt about treatment for alcohol use, pt declined any referrals for this as well. Pt declined any assist from [facility] at this time in regard to mental health, substance use, managing diabetes. SW did let pt know should he change his mind and be agreeable to assist, SW remains available. Pt recognizes that the alcohol use and DKA are connected, and he also states he feels awful and does not want to feel this way. However he is declining any outside assist at this time. SW did call [facility] in regard to this pt, however given his current alcohol use he is not a [facility] candidate at this time. Pt will return home w/parents at discharge. SW remains available should pt decide he is agreeable to any SW intervention. CAMDEN Salcedo
[2019-08-29] MEDS: 0.9% NaCl Peripheral Flush Adult/Peds IV ×3 (10:07→15:24)
--- NOTE | 2019-08-29 10:12 | PCM.CON.CC ---
Problem List (1) Gastroenteritis Status: Acute (2) Anxiety and depression Status: Chronic (3) Dehydration Status: Inactive (4) Hypokalemia Status: Inactive (5) DKA (diabetic ketoacidoses) Status: Acute Qualifiers: Diabetes mellitus type: type 1 Diabetes mellitus complication detail: without coma Qualified Code(s): E10.10 - Type 1 diabetes mellitus with ketoacidosis without coma (6) Diabetes type 1, uncontrolled Status: Chronic Comment: DKA w/ encephalopathy 03/2019 (7) Alcoholic cardiomyopathy Status: Chronic (8) Nicotine dependence Status: Chronic Reason for Consult Date of Consultation: 08/29/19 Reason for Consultation: DKA History of Present Illness: The patient is a 44 year old M, with past medical history listed below, who presented [facility] on 08/28/2019 secondary to a sensation of being in DKA. Patient is a type I diabetic with other comorbidities that had developed nausea and vomiting over the last 24 to 48 hours. This was not associated with diarrhea, melena, abdominal pain, fever, cough or hematemesis. Patient reported he had some mild sinus congestion, but had attributed this to seasonal allergies. Patient has had multiple episodes of DKA in the past and this felt similar. In the ER, patient was noted to be tachycardic and appeared dehydrated. Laboratory work-up showed a white count of 27.5, hemoglobin of 15 and an anion gap of 27 with a glucose of 502. Patient was initiated on the DKA protocol, along with IV fluids and insulin drip and admitted to the intensive care unit for further monitoring. On my evaluation, patient states that he was improved compared to previous. Patient was still having some mild nausea, but states it was much improved from when he came in. No emesis has been noted. Patient denied any chest pain, abdominal pain, cough or leg pain. Patient stated I am not quite back to normal, but getting there. Patient states he does have insulin at home and is unclear on why this keeps happening to me. Review of systems otherwise negative from a constitutional, HEENT, respiratory, cardiovascular, GI, genitourinary, musculoskeletal, skin, neurologic, psychiatric and hematologic system unless stated above. Past Medical History Past Medical History (Chronic Problems): Chronic Problems (Last Reviewed 08/29/19 @ 04:57 by Enrique Gaitan MD) Anxiety and depression (Chronic) Tobacco dependence (Chronic) Diabetes type 1, uncontrolled (Chronic) DKA w/ encephalopathy 03/2019 Alcoholic cardiomyopathy (Chronic) Nicotine dependence (Chronic) Medical History: Medical History (Last Reviewed 08/29/19 @ 04:57 by Enrique Gaitan MD) Diabetes type 1, uncontrolled (Chronic) E10.65 DKA w/ encephalopathy 03/2019 Alcoholic cardiomyopathy (Chronic) I42.6 Nicotine dependence (Chronic) F17.200 Acute renal failure N17.9 Alcohol abuse F10.10 Anxiety F41.9 Dental caries K02.9 Depression F32.9 Diabetic ketoacidosis Onset Date: 03/2019 E11.10 Dilated cardiomyopathy I42.0 Elevated liver enzymes R74.8 H/O sepsis Z86.19 Hyponatremia E87.1 Lactic acidosis E87.2 Left atrial enlargement I51.7 Mycoplasma pneumonia J15.7 NSVT (nonsustained ventricular tachycardia) I47.2 Neuropathy G62.9 Prolonged QT interval R94.31 Seizure disorder G40.909 Steatosis of liver K76.0 Thrombocytopenia D69.6 ELIZABETH (acute kidney injury) N17.9 Metabolic encephalopathy Onset Date: 03/2019 G93.41 Diabetes type 1, controlled E10.9 dx : 08/2001 last exacerbation : dka : 05/13 hypoglycemic episode : never er visit : 05/13 Allergies zinc Allergy (Intermediate, Verified 08/29/19 00:24) Hives Home Medications: Ambulatory Orders Medication Instructions Recorded blood sugar diagnostic strips See Dose Instructions .ROUTE 01/15/18 .MEDSUPPLY #120 ea levetiracetam 500 mg tablet 500 mg PO BID 01/18/18 mirtazapine 15 mg tablet 30 mg PO QHS 01/18/18 Folic Acid 1 tab PO DAILY 30 Days #30 tab 04/16/19 Atorvastatin Calcium 20 mg PO DAILY 04/22/19 Lisinopril [Zestril] 2.5 mg PO QDAY 04/24/19 Carvedilol 3.125 mg PO BID 05/13/19 Insulin Glargine,Hum.rec.anlog 25 unit SUBCUT DAILY 08/28/19 [Basaglar Kwikpen U-100] Insulin Lispro [Humalog KwikPen] unit SUBCUT TIDAC 08/28/19 Surgical History: Surgical History (Last Reviewed 08/29/19 @ 04:57 by Enrique Gaitan MD) History of left heart catheterization Onset Date: 04/18/16 Z98.890 Hx of tonsillectomy Z98.890, Z90.89 Surgical History: noncontributory Psychiatric History: No pertinent psych hx, Anxiety, Depression Smoking Status: Current every day smoker Tobacco Use: Cigarettes Alcohol: Heavy - *Family History Maternal Family History: Family History (Last Reviewed 08/29/19 @ 04:58 by Enrique Gaitan MD) Mother Arthritis Father Diabetes Grandfather Diabetes Grandmother Diabetes History Items: No pertinent history Review of Systems Comment: See HPI Patient Problems: Active and Suspected Problems (Last Reviewed 08/29/19 @ 04:57 by Enrique Gaitan MD) Gastroenteritis (Acute) Objective: Chest x-ray was personally reviewed and shows no acute infiltrate. There is an element of hyperinflation on my review. - Physical Exam General: Alert, Oriented x3, Cooperative, No apparent distress, - - Appears older than stated age. Speaking in full sentences. HEENT: Atraumatic, PERRLA, EOMI, Normocephalic, - - Slight injection without icterus Oral: No Gingival or Mucosal Lesions/ Ulcerations, Dry Mucosa Neck: Supple, No JVD, No Nodes, Trachea Midline Lungs: No rhonchi, No wheeze, No rales, Diminished, - - Symmetric expansion. No dullness to percussion. Cardiovascular: Regular rate, Regular Rhythm, Normal S1, Normal S2, No murmurs, No rub noted, No Gallop Abdomen: Bowel Sounds Present, Soft, Non Tender, Non-Distended Extremities: No clubbing, No cyanosis, No edema, Capillary Refill Less than 3 Seconds Skin: No rashes, No breakdown Musculoskeletal: No Tenderness to Palpation of Joints or Extremities Lymphatic: No Cervical, Supraclavicular, or Inguinal Adenopathy Neurological: Cranial nerves II-XII grossly intact, Neuro grossly intact, Motor Exam 5/5 strength throughout Psych/Mental Status: Appropriate, Flat Affect Vital Signs Temp Pulse Resp BP Pulse Ox 37.3 C H 99 21 H 104/50 L 100 08/29/19 08:00 08/29/19 08:00 08/29/19 08:00 08/29/19 08:00 08/29/19 08:00 Oxygen Delivery Method Room Air Weight: 70.3 kg Body Mass Index (BMI) 20.8 Finger Stick Blood Glucose 199 Intake and Output for Last 24 Hours 08/27/19 08/28/19 08/29/19 23:59 23:59 23:59 Intake Total 3013.37 / 3013.37 1712.61 / 1712.61 Output Total 600 / 1200 1250 / 1250 Balance 2413.37 / 1813.37 462.61 / 462.61 Laboratory Tests Past 24 Hrs 08/28/19 08/28/19 08/28/19 19:45 19:45 19:45 WBC 27.5 H RBC 4.40 L Hgb 15.1 Hct 45.7 MCV 103.9 H MCH 34.3 H MCHC 33.0 RDW Std Deviation 48.0 H RDW Coeff of Omayra 12.4 Plt Count 362 MPV 10.2 Immature Gran % (Auto) 1.100 H Neut % (Auto) 82.6 H Lymph % (Auto) 6.7 L [place] % (Auto) 8.8 Eos % (Auto) 0.1 Baso % (Auto) 0.7 Absolute Neuts (auto) 22.7 H Absolute Lymphs (auto) 1.83 Nucleated RBC % 0 Differential Comment SCANNED Diff Path Review May foll Sodium 126 L Potassium 5.1 Chloride 88 L Carbon Dioxide 11.0 L Anion Gap 27 H BUN 21 H Creatinine 1.35 H Estim Creat Clear Calc 67.90 Est GFR (MDRD) Af Amer 74 Est GFR (MDRD) Non-Af 61 BUN/Creatinine Ratio 15.6 Glucose 502 H* Hemoglobin A1c Calcium 9.3 Ionized Calcium Albumin Lipase 44 L Urine Color Urine Clarity Urine pH Ur Specific [place] Urine Protein Urine Glucose (UA) Urine Ketones Urine Occult Blood Urine Nitrite Urine Bilirubin Urine Urobilinogen Ur Leukocyte Esterase Urine RBC Urine WBC Ur Squamous Epith Cells Urine Bacteria Urine Mucus Acetone Level MODERATE H 08/28/19 08/29/19 08/29/19 23:20 02:50 02:50 WBC 23.6 H RBC 3.90 L Hgb 13.4 Hct 38.8 L MCV 99.5 H MCH 34.4 H MCHC 34.5 RDW Std Deviation 44.6 H RDW Coeff of Omayra 12.3 Plt Count 295 MPV 9.4 Immature Gran % (Auto) 0.800 Neut % (Auto) 86.5 H Lymph % (Auto) 6.6 L [place] % (Auto) 5.8 Eos % (Auto) 0.0 Baso % (Auto) 0.3 Absolute Neuts (auto) 20.4 H Absolute Lymphs (auto) 1.55 Nucleated RBC % 0 Differential Comment SCANNED Diff Path Review Sodium 131 L 137 Potassium 4.7 4.7 Chloride 100 105 Carbon Dioxide 6.0 L* 10.0 L Anion Gap 25 H 22 H BUN 19 H 17 Creatinine 1.25 1.22 Estim Creat Clear Calc 75.19 77.04 Est GFR (MDRD) Af Amer 81 83 Est GFR (MDRD) Non-Af 67 69 BUN/Creatinine Ratio 15.2 13.9 Glucose 346 H 208 H Hemoglobin A1c Calcium 7.1 L 7.2 L Ionized Calcium Albumin Lipase Urine Color Urine Clarity Urine pH Ur Specific [place] Urine Protein Urine Glucose (UA) Urine Ketones Urine Occult Blood Urine Nitrite Urine Bilirubin Urine Urobilinogen Ur Leukocyte Esterase Urine RBC Urine WBC Ur Squamous Epith Cells Urine Bacteria Urine Mucus Acetone Level 08/29/19 08/29/19 08/29/19 02:50 02:50 03:00 WBC RBC Hgb Hct MCV MCH MCHC RDW Std Deviation RDW Coeff of Omayra Plt Count MPV Immature Gran % (Auto) Neut % (Auto) Lymph % (Auto) [place] % (Auto) Eos % (Auto) Baso % (Auto) Absolute Neuts (auto) Absolute Lymphs (auto) Nucleated RBC % Differential Comment Diff Path Review Sodium Potassium Chloride Carbon Dioxide Anion Gap BUN Creatinine Estim Creat Clear Calc Est GFR (MDRD) Af Amer Est GFR (MDRD) Non-Af BUN/Creatinine Ratio Glucose Hemoglobin A1c 8.5 H Calcium Ionized Calcium Albumin 3.6 Lipase Urine Color Yellow Urine Clarity Clear Urine pH 5.0 Ur Specific [place] 1.025 Urine Protein 30 H Urine Glucose (UA) 1000 H Urine Ketones 150 H Urine Occult Blood 25 H Urine Nitrite Positive H Urine Bilirubin Negative Urine Urobilinogen Normal Ur Leukocyte Esterase Negative Urine RBC 0-5 SEEN Urine WBC 0 SEEN Ur Squamous Epith Cells 0-5 SEEN Urine Bacteria RARE Urine Mucus 0 SEEN Acetone Level 08/29/19 08/29/19 08/29/19 06:00 06:00 10:05 WBC RBC Hgb Hct MCV MCH MCHC RDW Std Deviation RDW Coeff of Omayra Plt Count MPV Immature Gran % (Auto) Neut % (Auto) Lymph % (Auto) [place] % (Auto) Eos % (Auto) Baso % (Auto) Absolute Neuts (auto) Absolute Lymphs (auto) Nucleated RBC % Differential Comment Diff Path Review Sodium 136 Pending Potassium 5.2 H Pending Chloride 104 Pending Carbon Dioxide 16.0 L Pending Anion Gap 16 H Pending BUN 16 Pending Creatinine 1.27 Pending Estim Creat Clear Calc 74.57 Est GFR (MDRD) Af Amer 79 Pending Est GFR (MDRD) Non-Af 66 Pending BUN/Creatinine Ratio 12.6 Pending Glucose 260 H Pending Hemoglobin A1c Calcium 7.3 L Pending Ionized Calcium Cancelled Albumin Lipase Urine Color Urine Clarity Urine pH Ur Specific [place] Urine Protein Urine Glucose (UA) Urine Ketones Urine Occult Blood Urine Nitrite Urine Bilirubin Urine Urobilinogen Ur Leukocyte Esterase Urine RBC Urine WBC Ur Squamous Epith Cells Urine Bacteria Urine Mucus Acetone Level POC Glucose 08/29/19 08/29/19 08/29/19 09:04 08:12 07:03 POC Glucose 199 H 217 H 218 H 08/29/19 08/29/19 08/29/19 05:58 03:54 02:48 POC Glucose 211 H 212 H 214 H 08/29/19 08/29/19 08/28/19 01:57 00:49 23:43 POC Glucose 237 H 315 H 384 H 08/28/19 08/28/19 08/28/19 22:37 21:46 19:39 POC Glucose 439 H > 500 H* > 500 H* Clinical Impression(s) from Imaging Studies Chest X-Ray 08/28/19 21:50 IMPRESSION: No radiographic evidence of acute cardiopulmonary disease. at 2247 Reported and signed by: Belem Waldrop DO Electronically Signed: Belem Waldrop DO at 22:46 EDT Tel , Service support , Assessment/Plan Active and Suspected Problems (Last Reviewed 08/29/19 @ 04:57 by Enrique Gaitan MD) Gastroenteritis (Acute) RECOMMENDATIONS: 1. Continue with DKA protocol 2. Arrange follow-up with Dr. Nelson on discharge 3. Anticipate transition to p.o. at lunchtime IMPRESSIONS: 1. Acute DKA secondary to probable noncompliance She with multiple previous admissions. Patient does have significant leukocytosis on presentation, but does not have any other constitutional type symptoms. Patient appears to be improving on DKA protocol. We will continue with protocol for now. Patient would benefit from follow-up with endocrinology as an outpatient. Management is complicated by patient's social history. 2. Possible acute gastroenteritis Patient may have an element of viral gastroenteritis versus nausea and vomiting associated with DKA. No diarrhea has been reported. We will continue to fluid resuscitate. Monitor for constitutional signs or symptoms. We will hold off on any significant cultures or viral panel unless patient develops constitutional symptoms. Chest x-ray was not suggestive of a pulmonary etiology for DKA. 3. Acute kidney injury To be prerenal etiology secondary to dehydration associated with DKA. Continue aggressive volume resuscitation and anticipate full recovery. 4. Hypertension/seizure disorder/history of alcohol abuse/nicotine abuse Complicates care, management, recovery and prognosis. Okay to continue with baseline medications from my perspective. Patient does have some hyperinflation on chest x-ray and likely can be evaluated for COPD as an outpatient. Code Visit Inpatient E&M: 49805 Init Hosp L2
--- NOTE | 2019-08-29 10:31 | PN_ITS ---
Patient Problems: Active and Suspected Problems (Last Reviewed 08/29/19 @ 04:57 by Enrique Gaitan MD) Gastroenteritis (Acute) Subjective: Feeling better, now that his blood sugars coming down he is rehydrated Vitals/I&O's: Vital Signs Temp Pulse Resp BP Pulse Ox 99.2 F H 99 21 H 104/50 L 100 08/29/19 08:00 08/29/19 08:00 08/29/19 08:00 08/29/19 08:00 08/29/19 08:00 Oxygen Delivery Method Room Air Weight: 154 lb 15.759 oz Body Mass Index (BMI) 20.8 Finger Stick Blood Glucose 199 Intake and Output for Last 24 Hours 08/27/19 08/28/19 08/29/19 23:59 23:59 23:59 Intake Total 3013.37 / 3013.37 1712.61 / 1712.61 Output Total 600 / 1200 1250 / 1250 Balance 2413.37 / 1813.37 462.61 / 462.61 General: Alert, Oriented x3, Cooperative, No apparent distress HEENT: Atraumatic, PERRLA, EOMI, Normocephalic Oral: Moist Mucosa Neck: Supple, No JVD Lungs: Clear to auscultation, Normal air movement, No rhonchi, No wheeze, No rales Cardiovascular: Regular rate, Regular Rhythm, Normal S1, Normal S2, No murmurs Abdomen: Soft, Non Tender, Non-Distended, No Hepato-splenomegaly Extremities: No edema, Capillary Refill Less than 3 Seconds Skin: No rashes, No breakdown Neurological: Neuro grossly intact, Sensory exam intact to light touch and pain Psych/Mental Status: Normal Affect, Appropriate, - - Speech is slow Laboratory Results 08/28/19 19:39: POC Glucose > 500 H* 08/28/19 19:45: WBC 27.5 H, RBC 4.40 L, Hgb 15.1, Hct 45.7, MCV 103.9 H, MCH 34.3 H, MCHC 33.0, RDW Std Deviation 48.0 H, RDW Coeff of Omayra 12.4, Plt Count 362, MPV 10.2, Immature Gran % (Auto) 1.100 H, Neut % (Auto) 82.6 H, Lymph % (Auto) 6.7 L, [place] % (Auto) 8.8, Eos % (Auto) 0.1, Baso % (Auto) 0.7, Absolute Neuts (auto) 22.7 H, Absolute Lymphs (auto) 1.83, Nucleated RBC % 0, Dif ferential Comment SCANNED, Diff Path Review March08/28/19 19:45: Sodium 126 L, Potassium 5.1, Chloride 88 L, Carbon Dioxide 11.0 L, Anion Gap 27 H, BUN 21 H, Creatinine 1.35 H, Estim Creat Clear Calc 67.90, Est GFR (MDRD) Af Amer 74, Est GFR (MDRD) Non-Af 61, BUN/Creatinine Ratio 15.6, Glucose 502 H*, Calcium 9.3, Lipase 44 L 08/28/19 19:45: Acetone Level MODERATE H 08/28/19 21:46: POC Glucose > 500 H* 08/28/19 22:37: POC Glucose 439 H 08/28/19 23:20: Sodium 131 L, Potassium 4.7, Chloride 100, Carbon Dioxide 6.0 L* , Anion Gap 25 H, BUN 19 H, Creatinine 1.25, Estim Creat Clear Calc 75.19, Est GFR (MDRD) Af Amer 81, Est GFR (MDRD) Non-Af 67, BUN/Creatinine Ratio 15.2, Glucose 346 H, Calcium 7.1 L 08/28/19 23:43: POC Glucose 384 H 08/29/19 00:49: POC Glucose 315 H 08/29/19 01:57: POC Glucose 237 H 08/29/19 02:48: POC Glucose 214 H 08/29/19 02:50: Sodium 137, Potassium 4.7, Chloride 105, Carbon Dioxide 10.0 L, Anion Gap 22 H, BUN 17, Creatinine 1.22, Estim Creat Clear Calc 77.04, Est GFR (MDRD) Af Amer 83, Est GFR (MDRD) Non-Af 69, BUN/Creatinine Ratio 13.9, Glucose 208 H, Calcium 7.2 L 08/29/19 02:50: WBC 23.6 H, RBC 3.90 L, Hgb 13.4, Hct 38.8 L, MCV 99.5 H, MCH 34.4 H, MCHC 34.5, RDW Std Deviation 44.6 H, RDW Coeff of Omayra 12.3, Plt Count 295, MPV 9.4, Immature Gran % (Auto) 0.800, Neut % (Auto) 86.5 H, Lymph % (Auto) 6.6 L, [place] % (Auto) 5.8, Eos % (Auto) 0.0, Baso % (Auto) 0.3, Absolute Neuts (auto) 20.4 H, Absolute Lymphs (auto) 1.55, Nucleated RBC % 0, Differential Comment SCANNED 08/29/19 02:50: Albumin 3.6 08/29/19 02:50: Hemoglobin A1c 8.5 H 08/29/19 03:00: Urine Color Yellow, Urine Clarity Clear, Urine pH 5.0, Ur Specific [place] 1.025, Urine Protein 30 H, Urine Glucose (UA) 1000 H, Urine Ketones 150 H, Urine Occult Blood 25 H, Urine Nitrite Positive H, Urine B ilirubin Negative, Urine Urobilinogen Normal, Ur Leukocyte Esterase Negative, Urine RBC 0-5 SEEN, Urine WBC 0 SEEN, Ur Squamous Epith Cells 0-5 SEEN, Urine Bacteria RARE, Urine Mucus 0 SEEN 08/29/19 03:54: POC Glucose 212 H 08/29/19 05:58: POC Glucose 211 H 08/29/19 06:00: Sodium 136, Potassium 5.2 H, Chloride 104, Carbon Dioxide 16.0 L , Anion Gap 16 H, BUN 16, Creatinine 1.27, Estim Creat Clear Calc 74.57, Est GFR (MDRD) Af Amer 79, Est GFR (MDRD) Non-Af 66, BUN/Creatinine Ratio 12.6, Glucose 260 H, Calcium 7.3 L 08/29/19 06:00: Ionized Calcium Cancelled 08/29/19 07:03: POC Glucose 218 H 08/29/19 08:12: POC Glucose 217 H 08/29/19 09:04: POC Glucose 199 H 08/29/19 10:05: Sodium Pending, Potassium Pending, Chloride Pending, Carbon Dioxide Pending, Anion Gap Pending, BUN Pending, Creatinine Pending, Est GFR (MDRD) Af Amer Pending, Est GFR (MDRD) Non-Af Pending, BUN/Creatinine Ratio Pending, Glucose Pending, Calcium Pending Current Medications Atorvastatin Calcium (Lipitor) 20 mg PO DAILY@2200 OZZIE [facility]) [facility] Last Admin: 08/29/19 08:18 Dose: 3.125 mg Documented by: Dextrose (D50w Syringe) 0 gm IV X1 PRN; Protocol PRN Reason: HYPOGLYCEMIA Folic Acid (Folic Acid) 1 mg PO DAILY@0800 [facility] Stop: 08/31/19 08:01 Last Admin: 08/29/19 08:18 Dose: 1 mg Documented by: Glucagon () 1 mg IM .X1 PRN PRN Reason: Hypoglycemia Insulin Human Lispro 100 unit/ (Sodium Chloride) 100 mls @ 6.804 mls/hr IV .[id number] [facility]; Protocol Last Infusion: 08/29/19 09:05 Dose: 0.04 units/kg/hr, 3 mls/hr Documented by: Sodium Chloride () 250 mls @ 15 mls/hr IV .[id number] PRN PRN Reason: SALINE FLUSH Potassium Chloride/Dextrose/Sod Cl (Kcl 20meq In D5.45ns 1000ml) 1,000 mls @ 150 mls/hr IV .[id number] [facility] Last Admin: 08/29/19 10:07 Dose: 150 mls/hr Documented by: Labetalol HCl (Trandate) 10 mg IV Q4H PRN PRN PRN Reason: SBP > 160 Levetiracetam (Keppra Tablet) 500 mg PO BID [facility] Last Admin: 08/29/19 08:19 Dose: 500 mg Documented by: Lorazepam (Ativan) 2 mg PO Q2H PRN PRN; Protocol PRN Reason: CIWA score > 8 but <15 Lorazepam (Ativan) 2 mg PO UD PRN; Protocol PRN Reason: CIWA score >/=15. Lorazepam (Ativan) 2 mg IV Q2H PRN PRN; Protocol PRN Reason: CIWA score > 8 but <15 Last Admin: 08/29/19 02:58 Dose: 2 mg Documented by: Lorazepam (Ativan) 2 mg IV UD PRN; Protocol PRN Reason: CIWA score >/=15. Multivitamins/Minerals (Multivitamin With Minerals) [facility] Last Admin: 08/29/19 08:18 Dose: Not Given Documented by: Nicotine (Nicoderm Cq (Pbkc)) 21 mg TRANSDERM. DAILY [facility] Last Admin: 08/29/19 08:21 Dose: 21 mg Documented by: Ondansetron HCl (Zofran) 4 mg IV Q8H PRN PRN PRN Reason: NAUSEA/VOMITING Last Admin: 08/29/19 10:06 Dose: 4 mg Documented by: Sodium Chloride () 5 - 15 ml IV UD PRN PRN Reason: SALINE FLUSH Last Admin: 08/29/19 10:09 Dose: 10 ml Documented by: Thiamine HCl (Vitamin B1) 100 mg PO BIDCM [facility] Stop: 08/31/19 17:01 Last Admin: 08/29/19 08:18 Dose: 100 mg Documented by: Medical Necessity - Tobacco Use Smoking Status: Current every day smoker Tobacco Use: Cigarettes Assessment/Plan All Active Problems (Last Reviewed 08/29/19 @ 04:57 by Enrique Gaitan MD) Gastroenteritis (Acute) DKA (diabetic ketoacidoses) (Acute) Hyperkalemia (Resolved) Hyponatremia (Resolved) Metabolic encephalopathy (Resolved) 1. DKA with metabolic acidosis/type 1 diabetes/ELIZABETH/hyperkalemia/hyponatremia/leukocytosis with possible viral gastroenteritis -Continue DKA protocol with insulin drip -Continue with IV fluid BMP every 4 hours to monitor potassium which was elevated to 5.2 -He was also severely hyponatremic to 126, bicarb of 11, anion gap of 27, creatinine of 1.35 -Baseline creatinine is less than 1 -Leukocytosis is 23.6 which is likely secondary to hemoconcentration and stress 2. Alcohol abuse -Binges on vodka when he can get it -He does not tolerate librium - Ativan and CIWA protocol 3. HTN/HLD/dilated cardiomyopathy which is alcohol induced -When he is taking p.o. can resume his home medications -Initially his EF was 15% however it has improved with decrease in his alcohol intake -His most recent echocardiogram in april 2019 had an EF of 50% with normal diastole 4. Seizure disorder -Currently stable -When taking p.o. can restart Keppra twice daily DVT: Lovenox Code Visit Inpatient E&M: 72416 Subs Hosp L2
[2019-08-29 10:34] LABS: Anion Gap 7 (5-15); BUN 13 mg/dL (7-18); BUN/Creat Ratio 11.2 RATIO (10-20); Calcium,Total 7.5 mg/dL (8.5-10.1); Chloride 107 mmol/L (98-107); Creatinine, Serum 1.16 mg/dL (0.70-1.30); EST Glomerular Filtration Rate 73 mL/min (>60); Est Glom Filt Rate - Afr Amer 88 mL/min (>60); Estimated Creatinine Clearance 81.65 ml/min; Glucose 168 mg/dL (74-106); Potassium 4.4 mmol/L (3.5-5.1); Sodium Level 134 mmol/L (136-145)
[2019-08-29 11:10] LABS: Bedside Glucose 170 mg/dL (70-110)
[2019-08-29 11:38] LABS: Pathologist Review Reviewed
[2019-08-29 13:10] LABS: Bedside Glucose 142 mg/dL (70-110)
[2019-08-29 14:15] LABS: Anion Gap 6 (5-15); BUN 11 mg/dL (7-18); BUN/Creat Ratio 9.7 RATIO (10-20); Calcium,Total 7.5 mg/dL (8.5-10.1); Chloride 107 mmol/L (98-107); Creatinine, Serum 1.13 mg/dL (0.70-1.30); EST Glomerular Filtration Rate 75 mL/min (>60); Est Glom Filt Rate - Afr Amer 91 mL/min (>60); Estimated Creatinine Clearance 83.81 ml/min; Glucose 136 mg/dL (74-106); Potassium 3.8 mmol/L (3.5-5.1); Sodium Level 135 mmol/L (136-145)
[2019-08-29] MEDS: Insulin Lispro 100 UNIT/ML INSULN.PEN 12 UNIT SC (15:24)
[2019-08-29 15:31] LABS: Bedside Glucose 104 mg/dL (70-110)
[2019-08-29 16:46] LABS: Bedside Glucose 65 mg/dL (70-110)
[2019-08-29 17:26] LABS: Bedside Glucose 103 mg/dL (70-110)
[2019-08-29] MEDS: Atorvastatin Calcium 20 MG Tablet PO (22:24)
[2019-08-29] MEDS: Insulin Lispro 100 UNIT/ML INSULN.PEN SC (22:25)
[2019-08-29 22:26] LABS: Bedside Glucose 279 mg/dL (70-110)
[2019-08-30 02:39] VITALS: BP 109/62; PULSE 80; RESP 18; TEMP 36.7; O2SAT 99
[2019-08-30 06:38] LABS: Absolute Lymphocyte Count 2.18 X10^3/uL (0.83-4.51); Absolute Neutrophil Count 7.3 X10^3/uL (2.0-7.7); Basophil# 0.02 X10^3/uL; Basophil% 0.2 % (0-1); Eosinophil# 0.06 X10^3/uL; Eosinophils% 0.6 % (0-5); Hemoglobin 12.9 g/dL (13.0-16.5); Lymphocyte # 2.18 X10^3/ul (4.0); Lymphocyte % 21.2 % (19-41); Mean Corp Hgb Conc 34.9 g/dL (32-36); Mean Corpuscular Hgb 33.4 pg (27.0-32.0); Mean Corpuscular Volume 95.9 fL (80-94); Mean Platelet Vol. 9.7 fl (6.2-12.0); Monocyte# 0.68 X10^3/uL; Monocyte% 6.6 % (0-10); NRBC Flagged by Analyzer 0 % (0-5); Neutrophil # 7.29 X10^3/uL (2.7-7.7); Neutrophil % 71.1 % (47-70); Platelet Count 239 K/mm3 (150-450); RBC Distribution Width CV 12.3 % (11.6-14.6); RBC Distribution Width SD 43.4 fl (35.1-43.9); Red Blood Count 3.86 M/mm3 (4.6-6.2); White Blood Count 10.3 K/mm3 (4.4-11.0)
[2019-08-30] MEDS: Enoxaparin 40 MG/0.4 ML Syringe SC (06:42)
[2019-08-30 06:50] LABS: Bedside Glucose 115 mg/dL (70-110)
[2019-08-30 06:51] LABS: Anion Gap 8 (5-15); BUN 5 mg/dL (7-18); BUN/Creat Ratio 5.3 RATIO (10-20); Calcium,Total 8.3 mg/dL (8.5-10.1); Chloride 106 mmol/L (98-107); Creatinine, Serum 0.94 mg/dL (0.70-1.30); EST Glomerular Filtration Rate 92 mL/min (>60); Est Glom Filt Rate - Afr Amer 112 mL/min (>60); Estimated Creatinine Clearance 100.76 ml/min; Glucose 121 mg/dL (74-106); Potassium 3.5 mmol/L (3.5-5.1); Sodium Level 139 mmol/L (136-145)
--- NOTE | 2019-08-30 08:08 | DCINST_ITS ---
- Discharge Diagnoses Current Active Problems: Current Active and Chronic Problems (Last Reviewed 08/29/19 @ 04:57 by Enrique Gaitan MD) Gastroenteritis (Acute) You will use the following diet at home:: Calorie/Carbohydrate Controlled (specify 1200, 1400, etc) Your food should be the consistency of: Regular Your liquids should be the consistency of: Regular/Thin Discharge Activity: Return to Normal Activity Call your doctor if you observe: Fever of 101 or Higher, Shortness of breath, Dizziness, Fainting spells, Swelling in the ankles, Chest pain, Increased palpitations (irregular heartbeat) Allergies/Adverse Reactions: Allergies zinc Allergy (Intermediate, Verified 08/29/19 00:24) Hives Medications to take at Discharge blood sugar diagnostic strips See Dose Instructions .ROUTE .MEDSUPPLY #120 ea 01/15/18 levetiracetam 500 mg tablet 500 mg PO BID 01/18/18 mirtazapine 15 mg tablet 30 mg PO QHS 01/18/18 Folic Acid 1 tab PO DAILY 30 Days #30 tab 04/16/19 Atorvastatin Calcium 20 mg PO DAILY 04/22/19 Lisinopril [Zestril] 2.5 mg PO QDAY 04/24/19 Carvedilol 3.125 mg PO BID 05/13/19 Insulin Glargine,Hum.rec.anlog [Basaglar Kwikpen U-100] 25 unit SUBCUT DAILY 08/28/19 Insulin Lispro [Humalog KwikPen] unit SUBCUT TIDAC 08/28/19 Primary Care Physician: Moni Cintron MD [Primary Care Provider] - Please follow up with your Primary Care Physician in: 3-5 days Test Results: Test results from this visit will be discussed in further detail at your follow- up appointment, if applicable. Please Follow Up With: Aris Nelson MD When: 2-3 weeks
--- NOTE | 2019-08-30 08:11 | DS.PCM_ITS ---
Discharge Date and Diagnosis - Problem List Patient Problems: Active and Suspected Problems (Last Reviewed 08/29/19 @ 04:57 by Enrique Gaitan MD) Gastroenteritis (Acute) Date of Admission: 08/28/19 Date of Discharge: 08/30/19 - Primary Discharge Diagnosis Active and Suspected Problems (Last Reviewed 08/29/19 @ 04:57 by Enrique Gaitan MD) Gastroenteritis (Acute) - Secondary Discharge Diagnosis Chronic Problems (Last Reviewed 08/29/19 @ 04:57 by Enrique Gaitan MD) Anxiety and depression (Chronic) Tobacco dependence (Chronic) Diabetes type 1, uncontrolled (Chronic) DKA w/ encephalopathy 03/2019 Alcoholic cardiomyopathy (Chronic) Nicotine dependence (Chronic) Hospital Course and Treatment Imaging Results: CXR: IMPRESSION: No radiographic evidence of acute cardiopulmonary disease. Consults: ICU Operations: None Procedures: None Summary of Care Provided: Per HPI: The patient is a 44 year old M with a significant history of type 1 diabetes; nicotine dependence; dilated cardiomyopathy s/p vest use; and seizure disorder who presented to emergency department with nausea and vomiting that started on the same day of presentation. Associated with his symptoms is d iarrhea. He reports 3 episodes of loose stools. Further he has abdominal pain; headache and no nausea. He reports that on the a.m. of the day of presentation his blood glucose was 235 and he appropriately covered himself with insulin thereafter he did not take any more insulin because he was vomiting. He reports many episodes of drinking water and vomiting. With his symptoms he thought that he may be having DKA and he was pressured to come to the hospital by his mother. At the emergency department patient was found to have serum ketones and anion gap metabolic acidosis. Patient was start ed on IV fluids and insulin drip. Hospital Course: 1. DKA with metabolic acidosis/type 1 diabetes/ELIZABETH/hyperkalemia/hyponatremia/leukocytosis with possible viral sgnhjrkiejofsas-70-aada-old male with history of type 1 diabetes who has had multiple admissions over the last several months for DKA, presented with another episode of DKA. On admission his blood sugar was 502 with an anion gap of 27 and a bicarb of 11. His potassium at that time was 5.1 with a sodium of 126. He was started on IV fluids as well as an insulin drip and per his usual, he recovered very quickly. He also had a leukocytosis with symptoms that were consistent with a viral gastroenteritis with nausea, vomiting and diarrhea (that this could also just be from his DKA), his leukocytosis resolved from initial count of 27.5 to 10.3 on the day of discharge. I discussed with him that he needs to be little bit more cognizant with his insulin regimen and his diet. Also discussed with him that there will be a new hose stripper starting in the area in the next couple of weeks and that I would like him to follow-up with her as an outpatient. His blood sugars are controlled here in the hospital controlled diet on his home insulin regimen. He understands the risks and benefits of going home and would like to go home today. 2. Alcohol abuse/HTN/HLD/dilated cardiomyopathy from alcohol-CIWA scale as well as PRN Ativan because of the risk of him having drug. Usually he is unable to get to the store when he is in DKA because of his confusion. Also his parents do not by him his alcohol. He had echo in April 2019 which showed an EF of 50% with normal diastole which is better than what he used to be with an EF of 15% a couple years ago. It was thought at that time that his cardiomyopathy was alcohol induced. 3. His other medical diagnoses were evaluated and his home medications were continued where appropriate Patient Problems: Active and Suspected Problems (Last Reviewed 08/29/19 @ 04:57 by Enrique Gaitan MD) Gastroenteritis (Acute) Objective: General: Alert, Oriented x3, Cooperative, No apparent distress HEENT: Atraumatic, PERRLA, EOMI, Normocephalic Oral: Moist Mucosa Neck: Supple, No JVD Lungs: Clear to auscultation, Normal air movement, No rhonchi, No wheeze, No rales Cardiovascular: Regular rate, Regular Rhythm, Normal S1, Normal S2, No murmurs Abdomen: Soft, Non Tender, Non-Distended, No Hepato-splenomegaly Extremities: No edema, Capillary Refill Less than 3 Seconds Skin: No rashes, No breakdown Neurological: Neuro grossly intact, Sensory exam intact to light touch and pain Psych/Mental Status: Normal Affect, Appropriate, - Physical Exam Vital Signs Temp Pulse Resp BP Pulse Ox 98.1 F 80 18 109/62 99 08/30/19 02:39 08/30/19 02:39 08/30/19 02:39 08/30/19 02:39 08/30/19 02:39 Oxygen Delivery Method Room Air Weight: 153 lb 8 oz Body Mass Index (BMI) 20.8 Finger Stick Blood Glucose 142 Intake and Output for Last 24 Hours 08/28/19 08/29/19 08/30/19 23:59 23:59 23:59 Intake Total 3013.37 / 3013.37 2052.31 / 2752.31 1100 / 1100 Output Total 600 / 1200 1700 / 1700 Balance 2413.37 / 1813.37 352.31 / 1052.31 1100 / 1100 Laboratory Tests Past 24 Hrs 08/28/19 08/29/19 08/29/19 19:45 10:05 13:55 WBC RBC Hgb Hct MCV MCH MCHC RDW Std Deviation RDW Coeff of Omayra Plt Count MPV Immature Gran % (Auto) Neut % (Auto) Lymph % (Auto) Traverse % (Auto) Eos % (Auto) Baso % (Auto) Absolute Neuts (auto) Absolute Lymphs (auto) Nucleated RBC % Diff Path Review Reviewed Sodium 134 L 135 L Potassium 4.4 3.8 Chloride 107 107 Carbon Dioxide 20.0 L 22.0 Anion Gap 7 6 BUN 13 11 Creatinine 1.16 1.13 Estim Creat Clear Calc 81.65 83.81 Est GFR (MDRD) Af Amer 88 91 Est GFR (MDRD) Non-Af 73 75 BUN/Creatinine Ratio 11.2 9.7 L Glucose 168 H 136 H Calcium 7.5 L 7.5 L 08/30/19 08/30/19 06:10 06:10 WBC 10.3 RBC 3.86 L Hgb 12.9 L Hct 37.0 L MCV 95.9 H MCH 33.4 H MCHC 34.9 RDW Std Deviation 43.4 RDW Coeff of Omayra 12.3 Plt Count 239 MPV 9.7 Immature Gran % (Auto) 0.300 Neut % (Auto) 71.1 H Lymph % (Auto) 21.2 Traverse % (Auto) 6.6 Eos % (Auto) 0.6 Baso % (Auto) 0.2 Absolute Neuts (auto) 7.3 Absolute Lymphs (auto) 2.18 Nucleated RBC % 0 Diff Path Review Sodium 139 Potassium 3.5 Chloride 106 Carbon Dioxide 25.0 Anion Gap 8 BUN 5 L Creatinine 0.94 Estim Creat Clear Calc 100.76 Est GFR (MDRD) Af Amer 112 Est GFR (MDRD) Non-Af 92 BUN/Creatinine Ratio 5.3 L Glucose 121 H Calcium 8.3 L POC Glucose 08/30/19 08/29/19 08/29/19 06:41 22:15 17:23 POC Glucose 115 H 279 H 103 08/29/19 08/29/19 08/29/19 16:43 15:22 13:07 POC Glucose 65 L 104 142 H 08/29/19 08/29/19 08/29/19 11:08 09:04 08:12 POC Glucose 170 H 199 H 217 H Discharge Activity: Return to Normal Activity Call your doctor if you observe: Fever of 101 or Higher, Shortness of breath, Dizziness, Fainting spells, Swelling in the ankles, Chest pain, Increased palpitations (irregular heartbeat) Home Medications: Medications to take at Discharge blood sugar diagnostic strips See Dose Instructions .ROUTE .MEDSUPPLY #120 ea 01/15/18 levetiracetam 500 mg tablet 500 mg PO BID 01/18/18 mirtazapine 15 mg tablet 30 mg PO QHS 01/18/18 Folic Acid 1 tab PO DAILY 30 Days #30 tab 04/16/19 Atorvastatin Calcium 20 mg PO DAILY 04/22/19 Lisinopril [Zestril] 2.5 mg PO QDAY 04/24/19 Carvedilol 3.125 mg PO BID 05/13/19 Insulin Glargine,Hum.rec.anlog [Basaglar Kwikpen U-100] 25 unit SUBCUT DAILY 08/28/19 Insulin Lispro [Humalog KwikPen] unit SUBCUT TIDAC 08/28/19 Primary Care Physician: Moni Cintron MD [Primary Care Provider] - Please follow up with your Primary Care Physician in: 3-5 days Please Follow Up With: Aris Nelson MD When: 2-3 weeks Disposition: Home Minutes spent on discharge:: 35 Patient Condition:: Good Medical Necessity - Tobacco Use Smoking Status: Current every day smoker Tobacco Use: Cigarettes Meaningful Use Info Meaningful Use Diagnoses (Choose all that apply): None applicable Code Visit Inpatient E&M: 16128 Disch Hosp
[2019-08-30 09:00] VITALS: BP 134/79; PULSE 82; RESP 18; TEMP 37.1; O2SAT 99
[2019-08-30] MEDS: Carvedilol 3.125 MG TABLET PO (09:01)
[2019-08-30] MEDS: Thiamine Hydrochloride 100 MG Tablet PO (09:01)
[2019-08-30] MEDS: Folic Acid 1 MG Tablet PO (09:01)
[2019-08-30] MEDS: levETIRAcetam 500 MG Tablet PO (09:02)
--- NOTE | 2019-09-02 15:18 | CASEMGMT ---
Addendum entered by Jina Franks 09/02/19 15:28: Patient returned call. States he is doing ok but not great. Patient inquired about Dr. Nelson new mortgage coordinator at [facility]. Patient provided with number for Dr Nelson's office to schedule appointment. Patient had no questions regarding discharge instructions. Original Note: TEODORO LAWLER Discharge Follow-up Phone Call: GENE: 14 Strata: 4 Call Date: 09/02/19 Discharge Date: 08/30/19 Time of Call: 1515 Duration: 1 min Admitting Diagnosis: DKA TEODORO LAWLER attempted to complete follow-up phone call after recent hospitalization. No answer, voice message left with return contact information.
== END 2019-08-30 10:15 | disposition home or self-care (01) | DRG 638 ==
LOC: ED 20:15 → ICU 21:33 → MS3 08-29 17:28
PROVIDERS: Admitting Provider Hospitalist; Emergency Provider Emergency Medicine; Family Provider Internal Medicine; PCP Internal Medicine; Visit Provider Family Medicine
DX: E10.10 Type 1 diabetes mellitus with ketoacidosis without coma (principal); N17.9 Acute kidney failure, unspecified; E87.1 Hypo-osmolality and hyponatremia; I42.6 Alcoholic cardiomyopathy; G93.40 Encephalopathy, unspecified; I25.10 Atherosclerotic heart disease of native coronary artery without angina pectoris; F10.20 Alcohol dependence, uncomplicated; Z79.4 Long term (current) use of insulin; F17.210 Nicotine dependence, cigarettes, uncomplicated; E83.51 Hypocalcemia; I10 Essential (primary) hypertension; G40.909 Epilepsy, unspecified, not intractable, without status epilepticus; E87.5 Hyperkalemia; A08.4 Viral intestinal infection, unspecified; F32.9 Major depressive disorder, single episode, unspecified; F41.9 Anxiety disorder, unspecified
CPT/HCPCS: 36415; 71045; 80048; 81001; 82009; 82040; 82962; 83036; 83690; 85025; 97802; 99285; 99406; J7030; A4216; J2405

== ENCOUNTER 2019-09-06 16:53 | Emergency (ER) | payer MEDICARE, MEDICAID, SELFPAY ==
[2019-08-28 22:38] VITALS: BMI 20.8
[2019-09-06 16:55] VITALS: BP 126/80; PULSE 102; RESP 16; TEMP 36.6; O2SAT 98; BMI 21.4
--- NOTE | 2019-09-06 17:34 | ED.DCSUM_ITS ---
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 EMS was called as patient was in a hotel room and apparently was banging his head against a wall. Patient states he was drinking vodka today. He states he drinks regularly and he cannot quantify how much he drinks. He states he does get the shakes if he drinks does have a history of alcohol withdrawal. Patient states he feels nauseous but denies any other complaints at this time. He is concerned that he might be in DKA. He is not sure the last time he took his insulin. Patient denies any other complaints at this time. He is noticed to have abrasions on his head and neck but does not know how he got them. He states he was not in flight and was not assaulted. Past Medical History - Allergies and Home Meds Allergies/Adverse Reactions: Allergies zinc Allergy (Intermediate, Verified 09/06/19 16:55) [facility] Primary Care Physician: Moni Cintron MD [Primary Care Provider] - Past Medical History: - - Alcohol abuse, bipolar disorder, DM 1 Surgical History: noncontributory Smoking Status: Current every day smoker - Family History Maternal Family History: Family History (Last Reviewed 08/29/19 @ 04:58 by Enrique Gaitan MD) Mother Arthritis Father Diabetes Grandfather Diabetes Grandmother Diabetes Family History: Reports: No pertinent history Review of Systems All systems negative except as indicated Gastrointestinal: Reports: Nausea Psych: Reports: - - Alcohol intoxication Physical Exam Vital Signs/Narrative: Vital Signs Temp Pulse Resp BP Pulse Ox 09/06/19 16:55 97.9 F 102 H 16 126/80 H 98 Inital Vital Signs reviewed: Yes General: Well nourished, Well developed, No Acute Distress Head: Normocephalic, - - Superficial abrasion just above left eyebrow Eyes: Perrl, EOMI, - - Bilateral horizontal nystagmus, fatiguing ENT: Moist mucous membranes, No rhinorrhea Neck: Supple, Nontender, - - Erythema and abrasion over left lateral neck, no midline tenderness, normal range of motion Cardiovascular: Regular rhythm, No murmurs, Tachycardia Respiratory: No distress, CTA bilaterally, Chest nontender Abdomen: Soft, Nontender, Nondistended, Normal bowel sounds Back: Nontender, Normal Inspection Extremities: Nontender, No edema Skin: Normal color, No rash Neurological: Alert, Oriented x3, Cranial nerves II-XII grossly intact, Normal Strength, Normal Sensation, - - Mildly slurred speech consistent with intoxication Psychological: Normal Mood, - - Blunted affect Diagnostic/Tx/Re-eval Chest X-Ray - ED: 1 View, Read by ED Physician, Read by Radiologist, No Acute Disease Clinical Impression(s) from Imaging Studies Brain CT 09/06/19 17:35 IMPRESSION: No acute intracranial bleed or infarct. Stable mild prominence of the ventricles relative to the sulci, possibly normal pressure hydrocephalus. Electronically Signed: Ronnie Jackson, at 18:18 EDT Tel , Service support , Chest X-Ray 09/06/19 17:35 IMPRESSION: No acute thoracic pathology. Electronically Signed: Ronnie Jackson, at 17:53 EDT Tel , Service support , Cervical Spine CT 09/06/19 17:37 IMPRESSION: Normal unenhanced CT examination of the cervical spine. Electronically Signed: Gaudencio Jerome MD at 18:15 EDT , Service support , Laboratory Data 09/06/19 09/06/19 09/06/19 17:00 17:00 17:00 WBC 5.4 RBC 4.09 L Hgb 13.9 Hct 39.7 L MCV 97.1 H MCH 34.0 H MCHC 35.0 RDW Std Deviation 46.0 H RDW Coeff of Omayra 13.0 Plt Count 347 MPV 9.8 Immature Gran % (Auto) 0.600 Neut % (Auto) 44.5 L Lymph % (Auto) 35.8 Bacon % (Auto) 16.9 H Eos % (Auto) 1.3 Baso % (Auto) 0.9 Absolute Neuts (auto) 2.4 Absolute Lymphs (auto) 1.95 Nucleated RBC % 0 Specimen Type Sample Site VBG pH VBG pO2 VBG O2 Sat (Calc) VBG O2 Content VBG Base Excess POC Mix VBG pCO2 Pt Tmp Blood Gas Notified Whom Blood Gas Notified Time Sodium 137 Potassium 3.3 L Chloride 101 Carbon Dioxide 21.0 Anion Gap 15 BUN 5 L Creatinine 0.84 Estim Creat Clear Calc 115.32 Est GFR (MDRD) Af Amer 128 Est GFR (MDRD) Non-Af 105 BUN/Creatinine Ratio 5.9 L Glucose 365 H Calcium 8.3 L Total Bilirubin 0.60 AST 27 ALT 28 Alkaline Phosphatase 115 Troponin I < 0.015 Total Protein 6.8 Albumin 3.8 Globulin 3.0 Albumin/Globulin Ratio 1.3 Urine Color Urine Clarity Urine pH Ur Specific [place] Urine Protein Urine Glucose (UA) Urine Ketones Urine Occult Blood Urine Nitrite Urine Bilirubin Urine Urobilinogen Ur Leukocyte Esterase Urine RBC Urine WBC Ur Squamous Epith Cells Urine Bacteria Urine Mucus Urine Opiates Screen Urine Methadone Screen Ur Barbiturates Screen Ur Phencyclidine Scrn Ur Amphetamines Screen U Methamphetamin-MDMA U Benzodiazepines Scrn Urine Cocaine Screen U Cannabinoids Screen Ur Drug Screen Comment Ethyl Alcohol 511.0 H* Acetone Level NEGATIVE 09/06/19 09/06/19 09/06/19 17:50 17:50 18:16 WBC RBC Hgb Hct MCV MCH MCHC RDW Std Deviation RDW Coeff of Omayra Plt Count MPV Immature Gran % (Auto) Neut % (Auto) Lymph % (Auto) Bacon % (Auto) Eos % (Auto) Baso % (Auto) Absolute Neuts (auto) Absolute Lymphs (auto) Nucleated RBC % Specimen Type JAKY Sample Site OTHER VBG pH 7.42 VBG pO2 49 H VBG O2 Sat (Calc) 85 H VBG O2 Content 24 VBG Base Excess -1 POC Mix VBG pCO2 Pt Tmp 35.7 L Blood Gas Notified Whom ED Blood Gas Notified Time 1810 Sodium Potassium Chloride Carbon Dioxide Anion Gap BUN Creatinine Estim Creat Clear Calc Est GFR (MDRD) Af Amer Est GFR (MDRD) Non-Af BUN/Creatinine Ratio Glucose Calcium Total Bilirubin AST ALT Alkaline Phosphatase Troponin I Total Protein Albumin Globulin Albumin/Globulin Ratio Urine Color Straw Urine Clarity Clear Urine pH 7.0 Ur Specific [place] 1.005 Urine Protein Negative Urine Glucose (UA) 1000 H Urine Ketones 15 H Urine Occult Blood Negative Urine Nitrite Negative Urine Bilirubin Negative Urine Urobilinogen Normal Ur Leukocyte Esterase Negative Urine RBC 0 SEEN Urine WBC 0 SEEN Ur Squamous Epith Cells 0-5 SEEN Urine Bacteria RARE Urine Mucus 0 SEEN Urine Opiates Screen NEGATIVE Urine Methadone Screen NEGATIVE Ur Barbiturates Screen NEGATIVE Ur Phencyclidine Scrn NEGATIVE Ur Amphetamines Screen NEGATIVE U Methamphetamin-MDMA NEGATIVE U Benzodiazepines Scrn NEGATIVE Urine Cocaine Screen NEGATIVE U Cannabinoids Screen NEGATIVE Ur Drug Screen Comment Ethyl Alcohol Acetone Level - Rhythm Strip Rhythm Strip: Sinus Rhythm Rate: 95 Ectopy: None - EKG Initial EKG Interpretation: Sinus Rhythm, - - Sinus rhythm at a rate of 95 Normal intervals Normal axis Normal ST segments - Medical Decision Making Patient is evaluated for acute intoxication and concern for DKA. He is hyperglycemic in the setting of a type I diabetic. DKA work-up is largely negative and he is just hyperglycemic. He does not have an anion gap or acidosis. Patient is given IV fluids. Patient's alcohol level is significantly elevated at 511. At one point patient pulled out all of his IVs stating that he wants to leave. At another point patient does walk out of the ER however please convince him to return to emergency room. Patient is counseled that because of how high his alcohol is he needs to stay in the ER until he can sober up further. He is agreeable with this. I did order him a nicotine patch. Patient did have abrasions to his head and neck so therefore a head CT and C-spine were ordered to rule out any traumatic process. This was largely negative. Patient is monitored for total of 7 hours. On repeat evaluation he is now clinically sober. Patient is easily ambulating and he is able to take a taxi back to the [facility] where he is staying. Patient is counseled on signs and symptoms requiring return to the emergency room. Patient verbalizes agreement and understand this plan. Patient discharged home in stable and improved condition. ED Disposition - Plan for ED Patient: Disposition: Home or Assisted Living Diagnosis: Alcohol intoxication, Hyperglycemia Instructions: Alcohol Intoxication Referrals: Moni Cintron MD [Primary Care Provider] - Additional Instructions: Please limit your alcohol intake. Return to the emergency room if you have any further concerns. Drink plenty of fluids and monitor your blood sugar closely so you do not go into DKA.
--- NOTE | 2019-09-06 17:35 | RAD_ITS ---
STUDY: X-RAY CHEST REASON FOR EXAM: Male, 44 years old. Chest pain TECHNIQUE: Frontal view of the chest COMPARISON: X-ray chest August 28, 2019 FINDINGS: The lungs are clear. There are no pleural effusions. There is no pneumothorax. The heart is normal in size. The visualized osseous structures are within normal limits. RAD/Chest 1 View (Portable) IMPRESSION: No acute thoracic pathology. Electronically Signed: Ronnie Jackson, at 17:53 EDT Tel , Service support ,
--- NOTE | 2019-09-06 17:35 | CT_ITS ---
STUDY: CT BRAIN WITHOUT CONTRAST REASON FOR EXAM: Male, 44 years old. Confusion RADIATION DOSAGE (If Supplied By Facility): DLP = ( 812.98 ) mGycm TECHNIQUE: Transaxial CT imaging of the brain was performed without administration of intravenous contrast material. Individualized dose optimization techniques were used for this CT. COMPARISON: CT head May 13, 2019 FINDINGS: There is no acute bleed or infarct. There are normal white matter tracts. There is mild prominence of the ventricles relative to the sulci, stable. The visualized paranasal sinuses are clear. The mastoid air cells are well aerated. There is no skull fracture. CT/Brain/Head without Contrast IMPRESSION: No acute intracranial bleed or infarct. Stable mild prominence of the ventricles relative to the sulci, possibly normal pressure hydrocephalus. Electronically Signed: Ronnie Jackson, at 18:18 EDT Tel , Service support ,
--- NOTE | 2019-09-06 17:36 | EKG12_ITS ---
Test Reason : ETOH Blood Pressure : / mmHG Vent. Rate : 095 BPM Atrial Rate : 095 BPM P-R Int : 126 ms QRS Dur : 092 ms QT Int : 378 ms P-R-T Axes : 047 031 052 degrees QTc Int : 475 ms Normal sinus rhythm Normal ECG Confirmed by SHANTA GEORGE, PAULO ([id number]), news editor FERMIN ARAYA ([id number]) on 09/11/2019 9:40:16 AM Referred By: DORITA Confirmed By:NALLELY WOMACK MD
--- NOTE | 2019-09-06 17:37 | CT_ITS ---
STUDY: CT CERVICAL SPINE WITHOUT CONTRAST REASON FOR EXAM: Male, 44 years old. Head injury and alcohol intoxication with confusion RADIATION DOSAGE (If Supplied By Facility): CTDIvol = ( 22.57 ) mGy, DLP = ( 706.79 ) mGycm TECHNIQUE: High resolution transaxial imaging was performed without contrast material. Sagittal and coronal images were reconstructed. Individualized dose optimization techniques were used for this CT. COMPARISON: None FINDINGS: Normal craniovertebral junction. Normal anterior atlantoaxial articulation. Normal odontoid process. Normal cervical lordosis. Normal vertebral bodies and posterior osseous elements. C2-3: Normal endplates. Normal disc height and morphology. Normal central canal and intervertebral neuroforamina. C3-4: Normal endplates. Normal disc height and morphology. Normal central canal and intervertebral neuroforamina. C4-5: Normal endplates. Normal disc height and morphology. Normal central canal and intervertebral neuroforamina. C5-6: Normal endplates. Normal disc height and morphology. Normal central canal and intervertebral neuroforamina. C6-7: Normal endplates. Normal disc height and morphology. Normal central canal and intervertebral neuroforamina. C7-T1: Normal endplates. Normal disc height and morphology. Normal central canal and intervertebral neuroforamina. Normal visualized soft tissue structures. CT/Spine Cervical without Contras IMPRESSION: Normal unenhanced CT examination of the cervical spine. Electronically Signed: Gaudencio Jerome MD at 18:15 EDT , Service support ,
[2019-09-06 17:46] LABS: Absolute Lymphocyte Count 1.95 X10^3/uL (0.83-4.51); Absolute Neutrophil Count 2.4 X10^3/uL (2.0-7.7); Basophil# 0.05 X10^3/uL; Basophil% 0.9 % (0-1); Eosinophil# 0.07 X10^3/uL; Eosinophils% 1.3 % (0-5); Hematocrit 39.7 % (40-54); Hemoglobin 13.9 g/dL (13.0-16.5); Lymphocyte # 1.95 X10^3/ul (4.0); Lymphocyte % 35.8 % (19-41); Mean Corpuscular Volume 97.1 fL (80-94); Mean Platelet Vol. 9.8 fl (6.2-12.0); Monocyte# 0.92 X10^3/uL; Monocyte% 16.9 % (0-10); NRBC Flagged by Analyzer 0 % (0-5); Neutrophil # 2.42 X10^3/uL (2.7-7.7); Neutrophil % 44.5 % (47-70); Platelet Count 347 K/mm3 (150-450); Red Blood Count 4.09 M/mm3 (4.6-6.2); White Blood Count 5.4 K/mm3 (4.4-11.0)
[2019-09-06] MEDS: 0.9% Normal Saline 1,000 ML 1000 ML IV (17:47)
[2019-09-06] MEDS: Ondansetron 4 MG/2 ML Vial IV (17:47)
[2019-09-06 18:01] LABS: Mucous, Urine 0 SEEN /hpf (<or=2+); Red Blood Cells-Urine 0 SEEN /hpf (0-5); White Blood Cells 0 SEEN /hpf (0-5)
[2019-09-06 18:05] LABS: ALB/GLOB Ratio 1.3 RATIO (0.9-2.4); AST(SGOT) 27 U/L (15-37); Alanine Aminotransfer ALT/SGPT 28 U/L (16-61); Albumin, Serum 3.8 g/dL (3.2-5.0); Alkaline Phosphatase 115 U/L (45-117); Anion Gap 15 (5-15); BUN 5 mg/dL (7-18); BUN/Creat Ratio 5.9 RATIO (10-20); Calcium,Total 8.3 mg/dL (8.5-10.1); Chloride 101 mmol/L (98-107); Creatinine, Serum 0.84 mg/dL (0.70-1.30); EST Glomerular Filtration Rate 105 mL/min (>60); Est Glom Filt Rate - Afr Amer 128 mL/min (>60); Estimated Creatinine Clearance 115.32 ml/min; Glucose 365 mg/dL (74-106); Potassium 3.3 mmol/L (3.5-5.1); Protein, Total 6.8 g/dL (6.4-8.2); Sodium Level 137 mmol/L (136-145)
--- NOTE | 2019-09-06 18:16 | ED.RN ---
alcogol of 511 reported to
[2019-09-06 18:20] LABS: Blood Gas Specimen Type VEN; SITE OTHER; Time Given 1810; VBG BASE EXCESS -1 mmol/L (-1.0-3.5); VBG Bicarbonate 23 mmol/L (22-26); VBG Oxygen Content 24 mmol/L (23-33); VBG PO2 49 mmHg (25-40); VBG SO2 85 % (50-70); VBG pCO2 35.7 mmHg (41-51); VBG pH 7.42 (7.32-7.42)
[2019-09-06 18:37] LABS: Amphetamine Urine VISTA NEGATIVE (<1000 ng/mL); Barbiturate Urine VISTA NEGATIVE (< 200 ng/mL); Benzodiazepine Urine VISTA NEGATIVE (< 200 ng/mL); Cocaine Urine VISTA NEGATIVE (< 300 ng/mL); Ecstacy Urine VISTA NEGATIVE (< 500 ng/mL); Methadone Urine VISTA NEGATIVE (< 300 ng/mL); PCP Urine VISTA NEGATIVE (< 25 ng/mL); THC Urine VISTA NEGATIVE (< 50 ng/mL); Vista UDS pH Range 6
--- NOTE | 2019-09-06 18:41 | ED.RN ---
pt ripped out iv. up in chair
[2019-09-06 18:42] LABS: Color, Urine Straw (Yellow); Glucose, Dipstick 1000 mg/dl (Normal); Ketone-Dipstick 15 mg/dl (Negative); Leukocyte Esterase-Dipstick Negative /ul (Negative); Nitrite-Dipstick Negative (Negative); Occult Blood-Urine Negative /ul (Negative); Protein-Dipstick Negative (Negative); Specific Gravity, Urine 1.005 (1.002-1.030); Urine Bilirubin Dipstick Negative (Negative); Urine Clarity Clear (Clear); Urine Urobilinogen Normal (Normal)
[2019-09-06 19:02] LABS: Bacteria RARE /hpf (None Seen); Squamous Epithelial Cells - UA 0-5 SEEN /hpf (0-5)
--- NOTE | 2019-09-06 19:34 | ED.RN ---
PT WAS TOLD TO LAY IN BED FOR 90 MINUTES UNTIL HIS RIDE COULD COME AND GET HIM. PT HAD ALREADY CRAWLED OUT OF BED, GOT DRESSED, RIPPED OUT HIS IV AND TOOK OFF ALL MONITORING DEVICES. PT WAS TOLD BY THIS RN WE COULD KEEP ALL THAT STUFF OFF IF HE LAID IN BED UNTIL HIS RIDE WAS ABLE TO COME. PER PT IS MEDICALLY CLEAR BUT UNABLE TO LEAVE BY HIMSELF DUE TO HIS HIGH ALCOHOL LEVEL. PT LAID IN BED FOR APPROXIMATELY 10 MINUTES THEN SAID FUCK THIS ER AND WALKED OUT THE SQUAD DOORS. PT WAS FOLLOWED BY STAFF MEMBERS AND ASKED HIM TO COME BACK TO HIS ROOM. PT STATES HE WAS GOING TO HAE A CIGARETTE AND ANYONE THAT WAS GOING TO TRY AND STOP HIM (MIDDLE FINGER GESTURE TO ALL STAFF MEMBERS). RHONDA ARAYA WAS CALLED TO ASSIST. STAFF FOLLOWED PATIENT DOWN ER RAMP TO ASSURE HE REMAINED SAFE WHILE STAYING SAFE THEMSELVES. PATIENT WAS ULTIMATELY WALKED BACK INTO THE ROOM TO HIS BED BY RHONDA ARAYA
[2019-09-06 20:11] VITALS: PULSE 89; RESP 16; O2SAT 100
[2019-09-06 23:53] VITALS: RESP 18
--- NOTE | 2019-09-06 23:54 | ED.RN ---
pt verbalized understanding of d/c instructions. pt waiting out front for his cab to arrive
== END 2019-09-06 23:54 | disposition home or self-care (01) ==
PROVIDERS: Emergency Provider Emergency Medicine; Family Provider Internal Medicine; PCP Internal Medicine
DX: F10.129 Alcohol abuse with intoxication, unspecified (principal); E10.65 Type 1 diabetes mellitus with hyperglycemia; S10.91XA Abrasion of unspecified part of neck, initial encounter; S00.212A Abrasion of left eyelid and periocular area, initial encounter; X58.XXXA Exposure to other specified factors, initial encounter; Y93.9 Activity, unspecified; Y92.9 Unspecified place or not applicable; F31.9 Bipolar disorder, unspecified; Z79.4 Long term (current) use of insulin; Z79.899 Other long term (current) drug therapy; F17.200 Nicotine dependence, unspecified, uncomplicated
CPT/HCPCS: 36415; 70450; 71045; 72125; 80053; 80307; 80320; 81001; 82009; 82803; 84484; 85025; 93005; 96361; 96374; 99285; J7030; A4216; G0480; J2405

== ENCOUNTER 2019-09-07 02:57 | Emergency (ER) | payer MEDICARE, MEDICAID, SELFPAY ==
[2019-09-06 16:55] VITALS: BMI 21.4
[2019-09-07] VITALS (7 sets, daily range): BP systolic 84–137; BP diastolic 58–107; PULSE 67–86; RESP 12–18; TEMP 36.2; O2SAT 94–97; BMI 20.7
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
[2019-09-07 09:01] LABS: Bedside Glucose 230 mg/dL (70-110)
[2019-09-07] MEDS: Insulin Lispro 100 UNIT/ML INSULN.PEN SC ×3 (09:05→17:51)
--- NOTE | 2019-09-07 12:13 | ED.RN ---
IV DC'ED, CATHETER INTACT, SMALL GAUZE DRESSING PLACED.
--- NOTE | 2019-09-07 12:36 | ED.RN ---
REORIENTED PT TO ED AND INFORMED PT THAT PT WILL BE ABLE TO LEAVE AT 1900 PER PHYSICIAN ORDER. PT VOICES CONCERNS OF MUSIC EQUIPMENT THAT NEEDED TO BE PICKED UP FROM MUSIC STORE. PT MADE AWARE THAT ARRANGEMENTS COULD NOT BE MADE ON HIS BEHALF. LUNCH TRAY ORDERED, PT COOPERATIVE AT THIS TIME. DENIES FURTHER NEEDS.
[2019-09-07 13:01] LABS: Bedside Glucose 195 mg/dL (70-110)
[2019-09-07 17:50] LABS: Bedside Glucose 270 mg/dL (70-110)
== END 2019-09-07 19:14 | disposition home or self-care (01) ==
LOC: ED 03:26
PROVIDERS: Emergency Provider Emergency Medicine; Family Provider Internal Medicine; PCP Internal Medicine
DX: F10.229 Alcohol dependence with intoxication, unspecified (principal); F32.9 Major depressive disorder, single episode, unspecified; F41.9 Anxiety disorder, unspecified; E10.9 Type 1 diabetes mellitus without complications; I42.6 Alcoholic cardiomyopathy; F17.210 Nicotine dependence, cigarettes, uncomplicated; Z79.899 Other long term (current) drug therapy; Z79.4 Long term (current) use of insulin
CPT/HCPCS: 80320; 82962; 96372; 99285; G0480

== ENCOUNTER 2019-09-09 15:57 | Inpatient (IN) | payer MEDICARE, MEDICAID, SELFPAY ==
[2019-09-07 02:58] VITALS: BMI 20.7
[2019-09-09] VITALS (14 sets, daily range): BP systolic 97–150; BP diastolic 51–84; PULSE 104–124; RESP 18–32; TEMP 36.4–37.1; O2SAT 100; BMI 19.7; BMI 19.5
--- NOTE | 2019-09-09 16:12 | EKG12_ITS ---
Test Reason : HYPERGLYCEMIA Blood Pressure : / mmHG Vent. Rate : 234 BPM Atrial Rate : 117 BPM P-R Int : 000 ms QRS Dur : 102 ms QT Int : 178 ms P-R-T Axes : 000 039 066 degrees QTc Int : 351 ms Sinus tachycardia Nonspecific ST and T wave abnormality Abnormal ECG Confirmed by JAIDEN GEORGE, SRAVAN ([id number]), acquisition editor FERMIN ARAYA ([id number]) on 09/11/2019 8:52:41 AM Referred By: BINU Confirmed By:SRAVAN HWAGN MD
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
--- NOTE | 2019-09-09 16:18 | RAD_ITS ---
STUDY: X-RAY CHEST REASON FOR EXAM: Male, 44 years old. Altered mental status, nausea, vomiting TECHNIQUE: Single AP portable view of the chest. COMPARISON: 09/06/2019 FINDINGS: The lungs are clear and expanded. There is no demonstrated pleural abnormality. Normal size heart. Normal mediastinum and sherry. Normal visualized pulmonary arteries. Normal visualized aortic arch and descending thoracic aorta. Normal visualized thoracic spine. Normal visualized ribs, clavicles, and shoulders. There is no demonstrated abnormality of the visualized soft tissue structures of the upper abdomen. RAD/Chest 1 View (Portable) IMPRESSION: Normal x-ray examination of the chest. Electronically Signed: Winston Waters MD at 16:30 EDT Tel , Service support ,
[2019-09-09] MEDS: Ondansetron 4 MG/2 ML Vial IV (16:30)
--- NOTE | 2019-09-09 16:32 | NURSING ---
CBCD AND CHEMISTRIES NEED REDRAWN
[2019-09-09] MEDS: 0.9% Normal Saline 1,000 ML 1000 ML IV (16:40)
[2019-09-09] MEDS: 0.9% Normal Saline 1,000 ML 999 ML IV (16:48)
[2019-09-09 16:50] LABS: Bedside Glucose > 500 mg/dL (70-110)
[2019-09-09 16:57] LABS: Absolute Lymphocyte Count 1.08 X10^3/uL (0.83-4.51); Absolute Neutrophil Count 23.6 X10^3/uL (2.0-7.7); Basophil# 0.18 X10^3/uL; Basophil% 0.7 % (0-1); Eosinophil# 0.05 X10^3/uL; Eosinophils% 0.2 % (0-5); Hematocrit 40.9 % (40-54); Hemoglobin 13.5 g/dL (13.0-16.5); Lymphocyte # 1.08 X10^3/ul (4.0); Lymphocyte % 4.1 % (19-41); Mean Platelet Vol. 10.4 fl (6.2-12.0); Monocyte% 5.3 % (0-10); NRBC Flagged by Analyzer 0.1 % (0-5); Neutrophil # 23.55 X10^3/uL (2.7-7.7); POSITIVE DIFFERENTIAL YES; POSITIVE MORPHOLOGY YES; Platelet Count 431 K/mm3 (150-450); RBC Distribution Width CV 12.4 % (11.6-14.6); RBC Distribution Width SD 46.8 fl (35.1-43.9); Red Blood Count 3.97 M/mm3 (4.6-6.2); White Blood Count 26.4 K/mm3 (4.4-11.0)
[2019-09-09 17:12] LABS: Differential Indicated SCAN CRITERIA MET
[2019-09-09 17:18] LABS: Anion Gap 44 (5-15); BUN 25 mg/dL (7-18); BUN/Creat Ratio 12.3 RATIO (10-20); Calcium,Total 7.9 mg/dL (8.5-10.1); Creatinine, Serum 2.04 mg/dL (0.70-1.30); EST Glomerular Filtration Rate 38 mL/min (>60); Est Glom Filt Rate - Afr Amer 46 mL/min (>60); Estimated Creatinine Clearance 43.52 ml/min
[2019-09-09 17:22] LABS: Glucose 829 mg/dL (74-106)
[2019-09-09 17:23] LABS: Potassium 6.6 mmol/L (3.5-5.1); Sodium Level 118 mmol/L (136-145)
[2019-09-09 17:24] LABS: Chloride 69 mmol/L (98-107)
--- NOTE | 2019-09-09 17:55 | NURSING ---
DR LAGOS FOR DR SCHMID
[2019-09-09 18:00] LABS: Base Excess -26 mmol/L (-2 to +2); Bicarbonate 3.4 mmol/L (22-26); Blood Gas Specimen Type ART; O2 Delivery Device Room Air; PO2 138 mmHG (75-100); SITE L Brachial; SO2 98 % (95-99); Time Given 1747; Total Carbon Dioxide < 5 mmol/L; pCO2 10.6 mmHg (35-45); pH 7.11 (7.35-7.45)
--- NOTE | 2019-09-09 18:01 | CPS ---
Critical blood gas results given to Dr. Lozano
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
--- NOTE | 2019-09-09 18:05 | NURSING ---
ICU 5 ACUTE DKA PAINTSIL
[2019-09-09 18:07] LABS: Platelet Estimate ADEQUATE (ADEQ)
[2019-09-09 18:08] LABS: Basophilic Stippling RARE
[2019-09-09 18:10] LABS: Macrocytosis RARE
[2019-09-09] MEDS: Calcium Gluconate 1 GM/10 ML Vial IV (18:13)
[2019-09-09] MEDS: 0.9% Normal Saline 1,000 ML 500 ML IV ×2 (18:55→20:54)
[2019-09-09 19:01] LABS: Bedside Glucose > 500 mg/dL (70-110)
[2019-09-09 20:01] LABS: Anion Gap 35 (5-15); BUN 25 mg/dL (7-18); Calcium,Total 6.9 mg/dL (8.5-10.1); Chloride 83 mmol/L (98-107); Creatinine, Serum 1.67 mg/dL (0.70-1.30); EST Glomerular Filtration Rate 48 mL/min (>60); Est Glom Filt Rate - Afr Amer 58 mL/min (>60); Glucose 543 mg/dL (74-106); Potassium 5.1 mmol/L (3.5-5.1); Sodium Level 124 mmol/L (136-145)
--- NOTE | 2019-09-09 20:07 | NURSING ---
patient has poor venous access, unable to draw labs peripherally at this time. Will draw repeat lactic acid when PICC line inserted
[2019-09-09 20:41] LABS: Reflex Lactate? Y
[2019-09-09] MEDS: LORazepam 1 MG Tablet PO (20:45)
[2019-09-09] MEDS: Famotidine 20 MG Tablet PO (20:47)
[2019-09-09 22:16] LABS: Bedside Glucose 341 mg/dL (70-110)
[2019-09-09 22:16] LABS: Bedside Glucose 449 mg/dL (70-110)
[2019-09-09 22:52] LABS: Lactic Acid 0.7 mmol/L (0.4-2.0)
[2019-09-09] MEDS: Heparin Injection (Vial) 5,000 UNIT/ML VIAL 5000 UNIT SC (22:59)
[2019-09-09] MEDS: 0.9% NaCl PICC Flush IV (23:00)
[2019-09-09] MEDS: 0.9% Normal Saline 1,000 ML 250 ML IV (23:45)
[2019-09-09 23:51] LABS: Bedside Glucose 291 mg/dL (70-110)
[2019-09-09 23:51] LABS: Bedside Glucose 308 mg/dL (70-110)
[2019-09-10] VITALS (25 sets, daily range): BP systolic 97–123; BP diastolic 56–72; PULSE 82–105; RESP 14–25; TEMP 36.6–36.9; O2SAT 98–100
[2019-09-10] MEDS: 0.9% NaCl PICC Flush IV ×3 (00:24→23:36)
[2019-09-10] MEDS: LORazepam 1 MG Tablet PO ×6 (01:01→21:32)
[2019-09-10 01:05] LABS: Bedside Glucose 244 mg/dL (70-110)
[2019-09-10 01:06] LABS: Anion Gap 23 (5-15); BUN 18 mg/dL (7-18); BUN/Creat Ratio 17.1 RATIO (10-20); Calcium,Total 5.7 mg/dL (8.5-10.1); Chloride 103 mmol/L (98-107); Creatinine, Serum 1.05 mg/dL (0.70-1.30); EST Glomerular Filtration Rate 82 mL/min (>60); Est Glom Filt Rate - Afr Amer 99 mL/min (>60); Estimated Creatinine Clearance 83.66 ml/min; Glucose 222 mg/dL (74-106); Potassium 3.4 mmol/L (3.5-5.1); Sodium Level 135 mmol/L (136-145)
[2019-09-10] MEDS: Dext 5%-0.45% NS 1,000 ML 150 ML IV ×2 (01:24→08:17)
[2019-09-10] MEDS: 0.9% NaCl IVPB Med Flush (250 mL) 15 ML IV (01:26)
[2019-09-10] MEDS: Potassium Chloride 10mEq/100mL 10 MEQ/100 ML IV.SOLN. 100 MEQ IV BOLUS ×4 (01:31→04:42)
[2019-09-10 03:10] LABS: Bedside Glucose 240 mg/dL (70-110)
[2019-09-10 03:10] LABS: Bedside Glucose 256 mg/dL (70-110)
[2019-09-10 04:11] LABS: Bedside Glucose 248 mg/dL (70-110)
[2019-09-10 04:24] LABS: Absolute Lymphocyte Count 1.23 X10^3/uL (0.83-4.51); Absolute Neutrophil Count 12.9 X10^3/uL (2.0-7.7); Basophil# 0.01 X10^3/uL; Basophil% 0.1 % (0-1); Hematocrit 30.4 % (40-54); Hemoglobin 10.6 g/dL (13.0-16.5); Lymphocyte # 1.23 X10^3/ul (4.0); Lymphocyte % 8.2 % (19-41); Mean Corp Hgb Conc 34.9 g/dL (32-36); Mean Corpuscular Hgb 33.9 pg (27.0-32.0); Mean Corpuscular Volume 97.1 fL (80-94); Mean Platelet Vol. 9.8 fl (6.2-12.0); Monocyte# 0.88 X10^3/uL; Monocyte% 5.8 % (0-10); NRBC Flagged by Analyzer 0 % (0-5); Neutrophil # 12.89 X10^3/uL (2.7-7.7); Neutrophil % 85.4 % (47-70); POSITIVE MORPHOLOGY YES; Platelet Count 286 K/mm3 (150-450); RBC Distribution Width CV 12.3 % (11.6-14.6); RBC Distribution Width SD 43.4 fl (35.1-43.9); Red Blood Count 3.13 M/mm3 (4.6-6.2); White Blood Count 15.1 K/mm3 (4.4-11.0)
[2019-09-10 04:26] LABS: Differential Indicated SCAN CRITERIA MET
[2019-09-10 04:43] LABS: ALB/GLOB Ratio 1.3 RATIO (0.9-2.4); AST(SGOT) 22 U/L (15-37); Alanine Aminotransfer ALT/SGPT 20 U/L (16-61); Albumin, Serum 3.2 g/dL (3.2-5.0); Alkaline Phosphatase 84 U/L (45-117); Anion Gap 20 (5-15); BUN 21 mg/dL (7-18); BUN/Creat Ratio 14.7 RATIO (10-20); Calcium,Total 6.6 mg/dL (8.5-10.1); Chloride 98 mmol/L (98-107); Creatinine, Serum 1.43 mg/dL (0.70-1.30); EST Glomerular Filtration Rate 57 mL/min (>60); Est Glom Filt Rate - Afr Amer 69 mL/min (>60); Estimated Creatinine Clearance 61.43 ml/min; Globulin 2.4 g/dL (2.2-4.2); Glucose 242 mg/dL (74-106); Potassium 4.2 mmol/L (3.5-5.1); Protein, Total 5.6 g/dL (6.4-8.2); Sodium Level 131 mmol/L (136-145)
[2019-09-10 04:50] LABS: Differential Comment SCANNED
[2019-09-10] MEDS: Heparin Injection (Vial) 5,000 UNIT/ML VIAL 5000 UNIT SC ×3 (05:21→21:32)
[2019-09-10 06:16] LABS: Bedside Glucose 218 mg/dL (70-110)
[2019-09-10 07:10] LABS: Bedside Glucose 183 mg/dL (70-110)
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
[2019-09-10 08:15] LABS: Bedside Glucose 253 mg/dL (70-110)
[2019-09-10 08:25] LABS: Bedside Glucose 164 mg/dL (70-110)
[2019-09-10 08:42] LABS: BUN 19 mg/dL (7-18); Creatinine, Serum 1.43 mg/dL (0.70-1.30); EST Glomerular Filtration Rate 57 mL/min (>60); Estimated Creatinine Clearance 61.99 ml/min; Glucose 178 mg/dL (74-106)
[2019-09-10 08:43] LABS: Anion Gap 13 (5-15); BUN/Creat Ratio 13.3 RATIO (10-20); Calcium,Total 6.8 mg/dL (8.5-10.1); Chloride 103 mmol/L (98-107); Est Glom Filt Rate - Afr Amer 69 mL/min (>60); Potassium 3.9 mmol/L (3.5-5.1); Sodium Level 135 mmol/L (136-145)
--- NOTE | 2019-09-10 09:38 | PCM.PROGNOTE ---
Patient Problems: Active and Suspected Problems (Last Reviewed 08/29/19 @ 04:57 by Enrique Gaitan MD) Acute kidney injury (Acute) Subjective: Chief complaint: Follow-up after admission for DKA, lactic acidosis, hyperkalemia, acute kidney injury and acute alcohol intoxication. Patient seen and examined. He is very sleepy, arousable. He barely was able to answer couple questions. He mentioned that he is very weak and tired. He denied abdominal pain, nausea or vomiting. His vital signs are stable, afebrile. - Physical Exam General: Cooperative, No apparent distress, Lethargic, - - Sleepy, arousable HEENT: Atraumatic, PERRLA, EOMI, Normocephalic Oral: Moist Mucosa, No Gingival or Mucosal Lesions/ Ulcerations Neck: Supple, No JVD, Negative Carotid Bruits, Trachea Midline, Thyroid Normal Size and Texture Lungs: Clear to auscultation, Normal air movement, No rhonchi, No wheeze, No rales, Diminished Cardiovascular: Regular rate, Regular Rhythm, Normal S1, Normal S2, PMI Normal Abdomen: Bowel Sounds Present, Soft, Non Tender, Non-Distended, No Hepato-splenomegaly Extremities: No clubbing, No cyanosis, No edema Skin: No rashes, No breakdown Lymphatic: No Cervical, Supraclavicular, or Inguinal Adenopathy Neurological: Cranial nerves II-XII grossly intact, Neuro grossly intact Psych/Mental Status: Appropriate, Flat Affect Vital Signs Temp Pulse Resp BP Pulse Ox 98.3 F 99 19 H 109/65 99 09/10/19 08:00 09/10/19 08:00 09/10/19 08:00 09/10/19 08:00 09/10/19 08:00 Oxygen Delivery Method Room Air Weight: 145 lb 1.027 oz Body Mass Index (BMI) 19.5 Finger Stick Blood Glucose 178 Intake and Output for Last 24 Hours 09/08/19 09/09/19 09/10/19 23:59 23:59 23:59 Intake Total 4011.75 / 4191.75 2079.03 / 2079.03 Output Total 700 / 700 Balance 4011.75 / 3491.75 1379.03 / 1379.03 Laboratory Tests Past 24 Hrs 09/09/19 09/09/19 09/09/19 16:15 16:15 16:15 WBC Cancelled Corrected WBC Cancelled RBC Cancelled Hgb Cancelled Hct Cancelled MCV Cancelled MCH Cancelled MCHC Cancelled RDW Std Deviation Cancelled RDW Coeff of Omayra Cancelled Plt Count Cancelled MPV Cancelled Immature Gran % (Auto) Cancelled Neut % (Auto) Cancelled Lymph % (Auto) Cancelled Avery % (Auto) Cancelled Eos % (Auto) Cancelled Baso % (Auto) Cancelled Absolute Neuts (auto) Cancelled Absolute Lymphs (auto) Cancelled Total Counted Cancelled Neutrophils % (Manual) Cancelled Band Neutrophils % Cancelled Lymphocytes % (Manual) Cancelled Monocytes % (Manual) Cancelled Eosinophils % (Manual) Cancelled Basophils % (Manual) Cancelled Metamyelocytes % Cancelled Myelocytes % Cancelled Promyelocytes % Cancelled Blast Cells % Cancelled Plasma Cell % (Manual) Cancelled Other Cells % Cancelled Nucleated RBC % Cancelled Nucleated RBCs/100 WBC Cancelled Differential Comment Cancelled Diff Path Review Cancelled Hypersegmented Neuts Cancelled Atypical Lymphocytes Cancelled Reactive Lymphocytes Cancelled Smudge Cells Cancelled Toxic Granulation Cancelled Toxic Vacuolation Cancelled Dohle Bodies Cancelled Lizeth Rods Cancelled Platelet Estimate Cancelled Plt Morphology Comment Cancelled RBC Morphology Cancelled Polychromasia Cancelled Hypochromasia Cancelled Poikilocytosis Cancelled Basophilic Stippling Cancelled Anisocytosis Cancelled Microcytosis Cancelled Macrocytosis Cancelled Spherocytes Cancelled Sickle Cells Cancelled Target Cells Cancelled Tear Drop Cells Cancelled Ovalocytes Cancelled Stomatocytes Cancelled [place] Bodies Cancelled Stuart Cells Cancelled Bite Cells Cancelled Crenated Cell Cancelled Acanthocytes (Spur) Cancelled Rouleaux Cancelled Schistocytes Cancelled Specimen Type Sample Site pH Bicarbonate Actual POC Total CO2 Base Excess O2 Saturation ABG pCO2 ABG pO2 O2 Delivery Device Blood Gas Notified Whom Blood Gas Notified Time Sodium Cancelled Potassium Cancelled Chloride Cancelled Carbon Dioxide Cancelled Anion Gap Cancelled BUN Cancelled Creatinine Cancelled Estim Creat Clear Calc Cancelled Est GFR (MDRD) Af Amer Cancelled Est GFR (MDRD) Non-Af Cancelled BUN/Creatinine Ratio Cancelled Glucose Cancelled Lactic Acid Calcium Cancelled Magnesium Total Bilirubin AST ALT Alkaline Phosphatase Total Protein Albumin Globulin Albumin/Globulin Ratio Ethyl Alcohol Acetone Level LARGE H 10/09/09/19 09/09/19 16:30 16:30 16:36 WBC 26.4 H Corrected WBC RBC 3.97 L Hgb 13.5 Hct 40.9 MCV 103.0 H D MCH 34.0 H MCHC 33.0 RDW Std Deviation 46.8 H RDW Coeff of Omayra 12.4 Plt Count 431 MPV 10.4 Immature Gran % (Auto) 0.700 Neut % (Auto) 89.0 H Lymph % (Auto) 4.1 L Avery % (Auto) 5.3 Eos % (Auto) 0.2 Baso % (Auto) 0.7 Absolute Neuts (auto) 23.6 H Absolute Lymphs (auto) 1.08 Total Counted Neutrophils % (Manual) Band Neutrophils % Lymphocytes % (Manual) Monocytes % (Manual) Eosinophils % (Manual) Basophils % (Manual) Metamyelocytes % Myelocytes % Promyelocytes % Blast Cells % Plasma Cell % (Manual) Other Cells % Nucleated RBC % 0.1 Nucleated RBCs/100 WBC Differential Comment COMMENT Diff Path Review May foll Hypersegmented Neuts Atypical Lymphocytes Reactive Lymphocytes Smudge Cells Toxic Granulation Toxic Vacuolation Dohle Bodies Lizeth Rods Platelet Estimate ADEQUATE Plt Morphology Comment RBC Morphology Polychromasia Hypochromasia Poikilocytosis Basophilic Stippling RARE Anisocytosis Microcytosis Macrocytosis RARE Spherocytes Sickle Cells Target Cells Tear Drop Cells Ovalocytes Stomatocytes [place] Bodies Stuart Cells Bite Cells Crenated Cell Acanthocytes (Spur) Rouleaux Schistocytes Specimen Type Sample Site pH Bicarbonate Actual POC Total CO2 Base Excess O2 Saturation ABG pCO2 ABG pO2 O2 Delivery Device Blood Gas Notified Whom Blood Gas Notified Time Sodium 118 L* Potassium 6.6 H* Chloride 69 L* Carbon Dioxide 5.0 L* Anion Gap 44 H BUN 25 H Creatinine 2.04 H Estim Creat Clear Calc 43.52 Est GFR (MDRD) Af Amer 46 L Est GFR (MDRD) Non-Af 38 L BUN/Creatinine Ratio 12.3 Glucose 829 H* Lactic Acid 6.0 H* Calcium 7.9 L Magnesium Total Bilirubin AST ALT Alkaline Phosphatase Total Protein Albumin Globulin Albumin/Globulin Ratio Ethyl Alcohol Acetone Level 09/09/19 09/09/19 09/09/19 17:48 19:20 19:20 WBC Corrected WBC RBC Hgb Hct MCV MCH MCHC RDW Std Deviation RDW Coeff of Omayra Plt Count MPV Immature Gran % (Auto) Neut % (Auto) Lymph % (Auto) Avery % (Auto) Eos % (Auto) Baso % (Auto) Absolute Neuts (auto) Absolute Lymphs (auto) Total Counted Neutrophils % (Manual) Band Neutrophils % Lymphocytes % (Manual) Monocytes % (Manual) Eosinophils % (Manual) Basophils % (Manual) Metamyelocytes % Myelocytes % Promyelocytes % Blast Cells % Plasma Cell % (Manual) Other Cells % Nucleated RBC % Nucleated RBCs/100 WBC Differential Comment Diff Path Review Hypersegmented Neuts Atypical Lymphocytes Reactive Lymphocytes Smudge Cells Toxic Granulation Toxic Vacuolation Dohle Bodies Lizeth Rods Platelet Estimate Plt Morphology Comment RBC Morphology Polychromasia Hypochromasia Poikilocytosis Basophilic Stippling Anisocytosis Microcytosis Macrocytosis Spherocytes Sickle Cells Target Cells Tear Drop Cells Ovalocytes Stomatocytes [place] Bodies Stuart Cells Bite Cells Crenated Cell Acanthocytes (Spur) Rouleaux Schistocytes Specimen Type ART Sample Site L Brachial pH 7.11 L* Bicarbonate Actual 3.4 L POC Total CO2 < 5 Base Excess -26 L O2 Saturation 98 ABG pCO2 10.6 L* ABG pO2 138 H O2 Delivery Device Room Air Blood Gas Notified Whom ED Blood Gas Notified Time 1747 Sodium 124 L Potassium 5.1 Chloride 83 L Carbon Dioxide 6.0 L* Anion Gap 35 H BUN 25 H Creatinine 1.67 H Estim Creat Clear Calc 52.60 Est GFR (MDRD) Af Amer 58 L Est GFR (MDRD) Non-Af 48 L BUN/Creatinine Ratio 15.0 Glucose 543 H* Lactic Acid Calcium 6.9 L Magnesium 2.0 Total Bilirubin AST ALT Alkaline Phosphatase Total Protein Albumin Globulin Albumin/Globulin Ratio Ethyl Alcohol Acetone Level 09/09/19 09/09/19 09/10/19 22:00 22:00 00:20 WBC Corrected WBC RBC Hgb Hct MCV MCH MCHC RDW Std Deviation RDW Coeff of Omayra Plt Count MPV Immature Gran % (Auto) Neut % (Auto) Lymph % (Auto) Avery % (Auto) Eos % (Auto) Baso % (Auto) Absolute Neuts (auto) Absolute Lymphs (auto) Total Counted Neutrophils % (Manual) Band Neutrophils % Lymphocytes % (Manual) Monocytes % (Manual) Eosinophils % (Manual) Basophils % (Manual) Metamyelocytes % Myelocytes % Promyelocytes % Blast Cells % Plasma Cell % (Manual) Other Cells % Nucleated RBC % Nucleated RBCs/100 WBC Differential Comment Diff Path Review Hypersegmented Neuts Atypical Lymphocytes Reactive Lymphocytes Smudge Cells Toxic Granulation Toxic Vacuolation Dohle Bodies Lizeth Rods Platelet Estimate Plt Morphology Comment RBC Morphology Polychromasia Hypochromasia Poikilocytosis Basophilic Stippling Anisocytosis Microcytosis Macrocytosis Spherocytes Sickle Cells Target Cells Tear Drop Cells Ovalocytes Stomatocytes [place] Bodies Stuart Cells Bite Cells Crenated Cell Acanthocytes (Spur) Rouleaux Schistocytes Specimen Type Sample Site pH Bicarbonate Actual POC Total CO2 Base Excess O2 Saturation ABG pCO2 ABG pO2 O2 Delivery Device Blood Gas Notified Whom Blood Gas Notified Time Sodium 135 L Potassium 3.4 L Chloride 103 Carbon Dioxide 9.0 L* Anion Gap 23 H BUN 18 Creatinine 1.05 Estim Creat Clear Calc 83.66 Est GFR (MDRD) Af Amer 99 Est GFR (MDRD) Non-Af 82 BUN/Creatinine Ratio 17.1 Glucose 222 H Lactic Acid 0.7 Calcium 5.7 L* Magnesium Total Bilirubin AST ALT Alkaline Phosphatase Total Protein Albumin Globulin Albumin/Globulin Ratio Ethyl Alcohol 7.0 Acetone Level 09/10/19 09/10/19 09/10/19 03:45 03:45 08:00 WBC 15.1 H Corrected WBC RBC 3.13 L Hgb 10.6 L Hct 30.4 L MCV 97.1 H D MCH 33.9 H MCHC 34.9 RDW Std Deviation 43.4 RDW Coeff of Omayra 12.3 Plt Count 286 MPV 9.8 Immature Gran % (Auto) 0.500 Neut % (Auto) 85.4 H Lymph % (Auto) 8.2 L Avery % (Auto) 5.8 Eos % (Auto) 0.0 Baso % (Auto) 0.1 Absolute Neuts (auto) 12.9 H Absolute Lymphs (auto) 1.23 Total Counted Neutrophils % (Manual) Band Neutrophils % Lymphocytes % (Manual) Monocytes % (Manual) Eosinophils % (Manual) Basophils % (Manual) Metamyelocytes % Myelocytes % Promyelocytes % Blast Cells % Plasma Cell % (Manual) Other Cells % Nucleated RBC % 0 Nucleated RBCs/100 WBC Differential Comment SCANNED Diff Path Review Hypersegmented Neuts Atypical Lymphocytes Reactive Lymphocytes Smudge Cells Toxic Granulation Toxic Vacuolation Dohle Bodies Lizeth Rods Platelet Estimate Plt Morphology Comment RBC Morphology Polychromasia Hypochromasia Poikilocytosis Basophilic Stippling Anisocytosis Microcytosis Macrocytosis Spherocytes Sickle Cells Target Cells Tear Drop Cells Ovalocytes Stomatocytes [place] Bodies Stuart Cells Bite Cells Crenated Cell Acanthocytes (Spur) Rouleaux Schistocytes Specimen Type Sample Site pH Bicarbonate Actual POC Total CO2 Base Excess O2 Saturation ABG pCO2 ABG pO2 O2 Delivery Device Blood Gas Notified Whom Blood Gas Notified Time Sodium 131 L 135 L Potassium 4.2 3.9 Chloride 98 103 Carbon Dioxide 13.0 L 19.0 L Anion Gap 20 H 13 BUN 21 H 19 H Creatinine 1.43 H 1.43 H Estim Creat Clear Calc 61.43 61.99 Est GFR (MDRD) Af Amer 69 69 Est GFR (MDRD) Non-Af 57 L 57 L BUN/Creatinine Ratio 14.7 13.3 Glucose 242 H 178 H Lactic Acid Calcium 6.6 L 6.8 L Magnesium Total Bilirubin 0.70 AST 22 ALT 20 Alkaline Phosphatase 84 Total Protein 5.6 L Albumin 3.2 Globulin 2.4 Albumin/Globulin Ratio 1.3 Ethyl Alcohol Acetone Level POC Glucose 09/10/19 09/10/19 09/10/19 08:16 07:06 06:09 POC Glucose 164 H 183 H 218 H 09/10/19 09/10/19 09/10/19 04:47 03:47 03:02 POC Glucose 253 H 248 H 256 H 09/10/19 09/10/19 09/09/19 01:59 00:55 23:46 POC Glucose 240 H 244 H 291 H 09/09/19 09/09/19 09/09/19 23:01 22:04 20:51 POC Glucose 308 H 341 H 449 H 09/09/19 09/09/19 18:51 16:45 POC Glucose > 500 H* > 500 H* Clinical Impression(s) from Imaging Studies Chest X-Ray 09/09/19 16:18 IMPRESSION: Normal x-ray examination of the chest. Electronically Signed: Winston Waters MD at 16:30 EDT Tel , Service support , Medical Necessity - Tobacco Use Smoking Status: Current every day smoker Tobacco Use: Cigarettes Assessment/Plan All Active Problems (Last Reviewed 08/29/19 @ 04:57 by Enrique Gaitan MD) Acute kidney injury (Acute) DKA (diabetic ketoacidoses) (Acute) This is a 43 years old male patient presented to the emergency room because of nausea, vomiting, diffuse abdominal pain and he was found to have acute diabetic ketoacidosis, lactic acidosis, hyperkalemia, acute kidney injury as well as acute alcohol intoxication. #1 diabetic ketoacidosis: Secondary to noncompliance. He is on IV insulin drip per DKA protocol. On admission, pH was 7.11, PCO2 was 10 and serum bicarb was 6. Today, anion gap closed, anion gap is 13, carbon dioxide is 19. Blood sugar is down to 200s. Vital signs are stable, afebrile. Chest x-ray showed no acute findings. No evidence of infection. Plan to continue same treatment, follow DKA protocol, DC insulin drip later today and initiate insulin as well as diet according to the tower loader operator. #2 lactic acidosis: It is likely due to DKA. I doubt infection, sepsis with severe sepsis. Lactic acid is down to 0.7 with IV fluids and insulin drip. Patient has been afebrile. Vital signs are stable. #3 acute kidney injury: Prerenal secondary to dehydration. Admission creatinine was 1.67, came down to 1.43 this morning. Plan to continue IV fluids, repeat BMP tomorrow morning. #4 hyperkalemia: Admission potassium was 6.6, came down to 3.9 this morning, normalized. #5 acute alcohol intoxication/withdrawal: 2 days ago, blood alcohol level was 478 when patient came to ED for intoxication but he had no decay and he was discharged. Yesterday, blood alcohol level was 7. Patient is on folic acid, thiamine and Ativan taper. Blood pressure and heart rate are stable. #6 alcoholic cardiomyopathy: Compensated, stable. No evidence of acute CHF. Coreg and lisinopril on hold at this time. #7 seizure disorder: Continue Keppra. #8 DVT prophylaxis: Subcu heparin. This note was generated with [employer] dictation software. It may contain incorrect words, spelling, and punctuation that were not noted in checking the note before signing. Code Visit Inpatient E&M: 41944 Subs Hosp L2
[2019-09-10] MEDS: Famotidine 20 MG Tablet PO ×2 (10:06→21:34)
[2019-09-10 10:26] LABS: Bedside Glucose 128 mg/dL (70-110)
[2019-09-10 11:16] LABS: Bedside Glucose 128 mg/dL (70-110)
[2019-09-10 11:51] LABS: Mucous, Urine 0 SEEN /hpf (<or=2+); Red Blood Cells-Urine 0 SEEN /hpf (0-5); White Blood Cells 0 SEEN /hpf (0-5)
[2019-09-10 11:52] LABS: Color, Urine Yellow (Yellow); Glucose, Dipstick 250 mg/dl (Normal); Leukocyte Esterase-Dipstick Negative /ul (Negative); Nitrite-Dipstick Negative (Negative); Occult Blood-Urine 25 /ul (Negative); Protein-Dipstick 30 mg/dl (Negative); Specific Gravity, Urine 1.015 (1.002-1.030); Urine Bilirubin Dipstick Negative (Negative); Urine Clarity Sl. Cloudy (Clear); Urine Urobilinogen Normal (Normal)
[2019-09-10 11:58] LABS: Ketone-Dipstick 150 mg/dl (Negative)
[2019-09-10 12:02] LABS: Bacteria 1+ /hpf (None Seen); Squamous Epithelial Cells - UA 0-5 SEEN /hpf (0-5)
[2019-09-10 12:24] LABS: Anion Gap 8 (5-15); BUN 15 mg/dL (7-18); BUN/Creat Ratio 11.9 RATIO (10-20); Calcium,Total 7.1 mg/dL (8.5-10.1); Chloride 103 mmol/L (98-107); Creatinine, Serum 1.26 mg/dL (0.70-1.30); EST Glomerular Filtration Rate 66 mL/min (>60); Est Glom Filt Rate - Afr Amer 80 mL/min (>60); Estimated Creatinine Clearance 70.35 ml/min; Glucose 115 mg/dL (74-106); Potassium 3.4 mmol/L (3.5-5.1); Sodium Level 133 mmol/L (136-145)
[2019-09-10] MEDS: levETIRAcetam 500 MG Tablet PO ×2 (13:20→21:33)
[2019-09-10] MEDS: Folic Acid 1 MG Tablet PO (13:20)
[2019-09-10] MEDS: Multivitamins,Ther W-Minerals Tablet 1 TABLET PO (13:26)
[2019-09-10 13:31] LABS: Bedside Glucose 122 mg/dL (70-110)
[2019-09-10] MEDS: Insulin NPH Human 100 UNITS/ML PEN 12 UNITS SC (14:26)
[2019-09-10 15:36] LABS: Bedside Glucose 196 mg/dL (70-110)
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
[2019-09-10 17:36] LABS: Bedside Glucose 267 mg/dL (70-110)
[2019-09-10] MEDS: Insulin Lispro 100 UNIT/ML INSULN.PEN SC ×2 (18:21→22:51)
[2019-09-10] MEDS: Acetaminophen 325 MG Tablet 650 MG PO (21:31)
[2019-09-10] MEDS: Dicyclomine 10 MG Capsule 20 MG PO (21:31)
[2019-09-10 22:15] LABS: Bedside Glucose 283 mg/dL (70-110)
[2019-09-10] MEDS: LORazepam 2 MG/ML Syringe IV (23:37)
[2019-09-11] VITALS (10 sets, daily range): BP systolic 114–141; BP diastolic 69–96; PULSE 70–100; RESP 14–19; TEMP 36.4–36.9; O2SAT 95–100
[2019-09-11] MEDS: LORazepam 2 MG/ML Syringe IV ×2 (01:24→03:03)
[2019-09-11] MEDS: 0.9% NaCl PICC Flush IV (01:25)
[2019-09-11] MEDS: 0.9% NaCl Peripheral Flush Adult/Peds IV (03:05)
--- NOTE | 2019-09-11 04:23 | CT_ITS ---
STUDY: CT BRAIN WITHOUT CONTRAST REASON FOR EXAM: Male, 44 years old. FALL.HAS LACERATION TO RT FOREHEAD,PT IN ICU FOR DKA AND ETOH WITHDRAWL HX:DIABETES,HTN.SEIZURES,RENAL FAILURE,ALCOHOLIC CARDIOMYOPATHY,POLYSUBSTANCE ABUSE RADIATION DOSAGE (If Supplied By Facility): CTDIvol = ( 44.99 ) mGy, DLP = ( 812.98 ) mGycm TECHNIQUE: Transaxial CT imaging of the brain was performed without administration of intravenous contrast material. Individualized dose optimization techniques were used for this CT. COMPARISON: No relevant priors. FINDINGS: Normal soft tissue structures. Normal calvarium. Normal size ventricles and extra-axial spaces for the patient's age. Normal white matter tracts of the cerebral hemispheres. Normal basal ganglia and thalami. Normal brainstem. Normal cerebellum. There is a right subdural hematoma overlying the right frontal, right temporal and right parietal lobes measures 7 mm in maximum thickness. There is 3 mm midline shift. There are no findings of an acute ischemic infarction. Normal visualized paranasal sinuses. CT/Brain/Head without Contrast IMPRESSION: There is a right subdural hematoma overlying the right frontal, right temporal and right parietal lobes measures 7 mm in maximum thickness. There is 3 mm midline shift. N.B. : The above information has been verbally conveyed by Priyank Lr to China Hollingsworth on 09/11/2019 05:45:01 (ET). Electronically Signed: Priyank Lr, at 5:47 EDT Tel , Service support ,
--- NOTE | 2019-09-11 04:36 | PCM.HOSP.N ---
Hospitalist Note Called per VENEER REPAIRER MACHINE, noted fall at ~ 4:30 am. Patient w/ DKA, EtOH withdrawal with elevated CIWA scores, recent ativan administration. Noted to have fallen as attempting to get out of bed, bed alarm sounded. Witnessed fall as staff rushed in. Fell forward onto his head with small cut ~ 1.5 cm to the R lateral upper forehead. Instructed staff to cleanse the cut and apply steri-strips. Patient given recent sedation not marked alert, mumbling answers, now laying in the ICU bed, CTA BL, mildly tachycardic, not answering orientation questions coherently, PERRLA, moving all extremities. Will obtain CT Head. Given severity of withdrawal and to avoid further harm to self given notable breakthrough ativan usage, if CT head unremarkable will initiate precedex drip.
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
[2019-09-11 05:36] LABS: Bedside Glucose 85 mg/dL (70-110)
[2019-09-11 14:51] LABS: Pathologist Review Reviewed
== END 2019-09-11 07:55 | disposition short-term general hospital (02) | DRG 638 ==
LOC: ED 17:54 → ICU 18:00
PROVIDERS: Admitting Provider Internal Medicine; Emergency Provider Emergency Medicine; Family Provider Internal Medicine; PCP Internal Medicine; Visit Provider Hospitalist
DX: E10.10 Type 1 diabetes mellitus with ketoacidosis without coma (principal); N17.9 Acute kidney failure, unspecified; S06.5X9A Traumatic subdural hemorrhage with loss of consciousness of unspecified duration, initial encounter; G93.40 Encephalopathy, unspecified; I42.6 Alcoholic cardiomyopathy; F10.239 Alcohol dependence with withdrawal, unspecified; S01.81XA Laceration without foreign body of other part of head, initial encounter; E87.5 Hyperkalemia; F31.9 Bipolar disorder, unspecified; W06.XXXA Fall from bed, initial encounter; Y92.230 Patient room in hospital as the place of occurrence of the external cause; Z79.4 Long term (current) use of insulin; Z91.14 Patient's other noncompliance with medication regimen; G40.909 Epilepsy, unspecified, not intractable, without status epilepticus; F41.9 Anxiety disorder, unspecified; F32.9 Major depressive disorder, single episode, unspecified
CPT/HCPCS: 36415; 36569; 36600; 70450; 71045; 72125; 80048; 80053; 80307; 80320; 81001; 82009; 82803; 82962; 83605; 83735; 84484; 85025; 93005; 96361; 96372; 96374; 97162; 97166; 99285; J7030; J7050; A4216; G0480; J0610; J2405; J3490; J7799

== ENCOUNTER 2019-09-17 21:34 | Emergency (ER) | payer MEDICARE, MEDICAID, SELFPAY ==
[2019-09-09 18:56] VITALS: BMI 19.5
[2019-09-17 21:36] VITALS: BP 152/88; PULSE 112; RESP 17; TEMP 37.2; O2SAT 98; BMI 22.0
--- NOTE | 2019-09-17 21:57 | EKG12_ITS ---
Test Reason : ALT LOC Blood Pressure : / mmHG Vent. Rate : 101 BPM Atrial Rate : 101 BPM P-R Int : 128 ms QRS Dur : 090 ms QT Int : 350 ms P-R-T Axes : 057 035 047 degrees QTc Int : 453 ms Sinus tachycardia Possible Left atrial enlargement Borderline ECG Confirmed by GOOD GEORGE, RADHA ([id number]), photography editor FERMIN ARAYA ([id number]) on 09/20/2019 10:58:18 AM Referred By: MAX Confirmed By:RADHA FUNK MD
--- NOTE | 2019-09-17 21:57 | CT_ITS ---
We are attempting to reach an attending provider to discuss findings. An addendum with communication details will be sent when the communication is complete. STUDY: CT BRAIN WITHOUT CONTRAST REASON FOR EXAM: Male, 44 years old. Confusion altered mental status,, history of brain bleed fall seizure diabetes hypertension RADIATION DOSAGE (If Supplied By Facility): CTDIvol = ( 44.99 ) mGy, DLP = ( 832.67 ) mGycm TECHNIQUE: Transaxial CT imaging of the brain was performed without administration of intravenous contrast material. Individualized dose optimization techniques were used for this CT. COMPARISON: September 11, 2019 CT head FINDINGS: Normal soft tissue structures. Normal calvarium. There is moderate cerebral atrophy with widening of the extra-axial spaces and ventricular dilatation. There are areas of decreased attenuation within the white matter tracts of the supratentorial brain, consistent with microvascular disease changes. Normal basal ganglia and thalami. Normal brainstem. There is mild cerebellar atrophy. There is a right hemispheric subdural hemorrhage with extra-axial low attenuating fluid and layering high attenuating fluid compatible with an acute on chronic subdural hemorrhage. There is an effaced appearance of the right side ventricles. The size of the subdural is larger than the prior study September 11, 2019. The fluid at the level of the vertex measures up to 1.6 cm on today's study. The hyperdense component in the mid right hemisphere is similar with measuring approximately 7.4 mm one on prior study it measured 6.8 mm. There are no findings of an acute ischemic infarction. Normal visualized paranasal sinuses. CT/Brain/Head without Contrast IMPRESSION: Increasing size of the right side subdural hemorrhage with acute and chronic components. Right hemispheric edema no significant shift. Electronically Signed: Belem Phelps MD at 22:48 EDT Tel , Service support ,
--- NOTE | 2019-09-17 21:59 | ED.VIS.GEN ---
History of Present Illness Chief Complaint: Alt LOC Informant: Patient, Family Onset: Today Narrative: Patient was recently admitted to this hospital for DKA and alcohol withdrawal. While in the ICU he suffered a fall and developed a right subdural hemorrhage. He was transferred to [facility] on the . Family states that he was in the ICU for 5 days and then moved to regular floor. He did not require surgery for his subdural hemorrhage. Family brought him home today from the hospital. Patient reportedly did not feel well but when he left the hospital. He is continued to not feel well today and parents state he seems to be getting worse. He went out to the garage to smoke and his father found him sitting in a chair having what he believes is a tonic-clonic seizure. Patient does have history of seizure disorder and takes Keppra, but family states this is not typical of his seizures. Past Medical History - Allergies and Home Meds Allergies/Adverse Reactions: Allergies zinc Allergy (Intermediate, Verified 09/17/19 22:27) Hives Primary Care Physician: Moni Cintron MD [Primary Care Provider] - Prior records reviewed: Yes Past Medical History: - - Reviewed Surgical History: noncontributory Lives: With Family Smoking Status: Current every day smoker - Family History Maternal Family History: Family History (Last Reviewed 08/29/19 @ 04:58 by Enrique Gaitan MD) Mother Arthritis Father Diabetes Grandfather Diabetes Grandmother Diabetes Family History: Reports: No pertinent history Review of Systems General: Denies: Chills, Fever Eyes: Denies: Visual changes - bilaterally ENT: Denies: Bilateral ear pain Cardiovascular: Denies: Chest pain, Palpitations Respiratory: Denies: Dyspnea, Cough Gastrointestinal: Reports: Abdominal pain Musculoskeletal: Denies: Neck pain, Back pain Skin: Denies: Wounds Neurological: Reports: Headache Physical Exam Vital Signs/Narrative: Vital Signs Temp Pulse Resp BP Pulse Ox 09/17/19 21:36 98.9 F 112 H 17 152/88 H 98 Inital Vital Signs reviewed: Yes General: Well nourished, Well developed Head: Normocephalic, - - Healing abrasion to the right forehead. ENT: Moist mucous membranes Neck: Supple Cardiovascular: Regular rate, Regular rhythm Respiratory: No distress, CTA bilaterally, Chest nontender Abdomen: Soft, Nontender, Hypoactive bowel sounds Neurological: Alert, - - At times patient will speak full sentences and answer questions appropriately. Then he will seem confused and just look at it without speaking. He will sometimes just start crying for no reason. There does not appear to be any focal neurologic deficits. Diagnostic/Tx/Re-eval Impressions Brain CT 09/17/19 21:57 IMPRESSION: Increasing size of the right side subdural hemorrhage with acute and chronic components. Right hemispheric edema no significant shift. Electronically Signed: Belem Phelps MD at 22:48 EDT Tel , Service support , ADDENDUM: 09/17/19 [id number] IMPRESSION: Increasing size of the right side subdural hemorrhage with acute and chronic components. Right hemispheric edema no significant shift. N.B. : The above information has been verbally conveyed by Belem Phelps MD to Patti Carlos MD, on 09/17/2019 22:50:41 (ET). Electronically Signed: Belem Phelps MD at 22:48 EDT Tel , Service support , 09/17/19 21:57 Brain/Head without Contrast [CT] Stat Laboratory Results 09/17/19 09/17/19 09/17/19 21:40 21:40 21:40 WBC 8.3 RBC 3.93 L Hgb 13.3 Hct 37.9 L MCV 96.4 H MCH 33.8 H MCHC 35.1 RDW Std Deviation 44.5 H RDW Coeff of Omayra 12.4 Plt Count 549 H MPV 9.5 Immature Gran % (Auto) 0.400 Neut % (Auto) 45.9 L Lymph % (Auto) 27.3 Tripp % (Auto) 24.4 H Eos % (Auto) 1.0 Baso % (Auto) 1.0 Absolute Neuts (auto) 3.8 Absolute Lymphs (auto) 2.27 Nucleated RBC % 0 Differential Comment SEE COMMENT Diff Path Review May foll Platelet Estimate MOD INC Anisocytosis RARE Macrocytosis RARE Sodium 137 Potassium 3.7 Chloride 100 Carbon Dioxide 26.0 Anion Gap 11 BUN 7 Creatinine 1.03 Estim Creat Clear Calc 91.04 Est GFR (MDRD) Af Amer 101 Est GFR (MDRD) Non-Af 84 BUN/Creatinine Ratio 6.8 L Glucose 246 H Calcium 9.8 Total Bilirubin 0.30 Direct Bilirubin 0.15 AST 15 ALT 19 Alkaline Phosphatase 98 Total Protein 7.8 Albumin 3.5 Globulin 4.3 H Ethyl Alcohol < 3.0 - EKG Initial EKG Interpretation: Sinus Tachycardia - Sinus tach at 101. No acute ischemia. - Medical Decision Making Patient was given IV fluids. He was observed on manager monitoring. Labs are reviewed. I reviewed discharge summary from [facility] as well as his last CAT scan from [facility]. His subdural appears unchanged. I had a long talk with his parents about his care. It does not sound like patient rehab was recommended, but they did recommend outpatient occupational, cognitive, and physical therapy. Parents state they are concerned that they do not know what to do when patient becomes worse. I asked specifically what was worse when compared to his time of discharge. Mother states he has episodes where he just stares and they are lasting longer and longer. While in the emergency room they did come out of the room stating that he was having 1 of his spells. Nurse walked into the room. Patient was resting and staring straight ahead. She called him by name and asked him a question he answered appropriately. When I entered the room a short time later I sat in a chair next to the bed. I asked a question. He turned his head and looked at me. There is no evidence of seizure activity. I advised parents that I believe this is all secondary to his traumatic brain injury. They are interested in potential inpatient treatment for his brain injury. We discussed possibility of [facility] in [place]. I contacted [facility] since patient was just discharged from there today. They advised me they have no beds. I offered to transfer him to [facility] where it would be an easy transfer to [facility] if deemed appropriate. After discussion, they have agreed that they will take the patient home tonight. They will call his neurosurgeon tomorrow to get his opinion about inpatient rehab. Family was advised they can return at any point. ED Disposition - Plan for ED Patient: Disposition: Home or Assisted Living Diagnosis: Traumatic brain injury Instructions: What is Traumatic Brain Injury? Referrals: Moni Cintron MD [Primary Care Provider] -
[2019-09-17 22:05] LABS: Absolute Lymphocyte Count 2.27 X10^3/uL (0.83-4.51); Absolute Neutrophil Count 3.8 X10^3/uL (2.0-7.7); Basophil# 0.08 X10^3/uL; Eosinophil# 0.08 X10^3/uL; Hematocrit 37.9 % (40-54); Hemoglobin 13.3 g/dL (13.0-16.5); Lymphocyte # 2.27 X10^3/ul (4.0); Lymphocyte % 27.3 % (19-41); Mean Corp Hgb Conc 35.1 g/dL (32-36); Mean Corpuscular Hgb 33.8 pg (27.0-32.0); Mean Corpuscular Volume 96.4 fL (80-94); Mean Platelet Vol. 9.5 fl (6.2-12.0); Monocyte# 2.03 X10^3/uL; Monocyte% 24.4 % (0-10); NRBC Flagged by Analyzer 0 % (0-5); Neutrophil # 3.84 X10^3/uL (2.7-7.7); Neutrophil % 45.9 % (47-70); POSITIVE DIFFERENTIAL YES; Platelet Count 549 K/mm3 (150-450); RBC Distribution Width CV 12.4 % (11.6-14.6); RBC Distribution Width SD 44.5 fl (35.1-43.9); Red Blood Count 3.93 M/mm3 (4.6-6.2); White Blood Count 8.3 K/mm3 (4.4-11.0)
[2019-09-17 22:10] LABS: Differential Indicated SCAN CRITERIA MET
[2019-09-17 22:15] LABS: Alcohol, Blood (Medical)-Serum < 3.0 mg/dL
[2019-09-17 22:18] LABS: AST(SGOT) 15 U/L (15-37); Alanine Aminotransfer ALT/SGPT 19 U/L (16-61); Albumin, Serum 3.5 g/dL (3.2-5.0); Alkaline Phosphatase 98 U/L (45-117); Anion Gap 11 (5-15); BUN 7 mg/dL (7-18); BUN/Creat Ratio 6.8 RATIO (10-20); Bilirubin, Direct 0.15 mg/dL (0.00-0.30); Calcium,Total 9.8 mg/dL (8.5-10.1); Chloride 100 mmol/L (98-107); Creatinine, Serum 1.03 mg/dL (0.70-1.30); EST Glomerular Filtration Rate 84 mL/min (>60); Est Glom Filt Rate - Afr Amer 101 mL/min (>60); Estimated Creatinine Clearance 91.04 ml/min; Globulin 4.3 g/dL (2.2-4.2); Glucose 246 mg/dL (74-106); Potassium 3.7 mmol/L (3.5-5.1); Protein, Total 7.8 g/dL (6.4-8.2); Sodium Level 137 mmol/L (136-145)
[2019-09-17] MEDS: 0.9% Normal Saline 1,000 ML 150 ML IV (22:18)
[2019-09-17 22:38] LABS: Platelet Estimate MOD INC (ADEQ)
[2019-09-17 22:41] LABS: Anisocytosis RARE
[2019-09-17 22:42] LABS: Macrocytosis RARE
--- NOTE | 2019-09-17 22:43 | ED.RN ---
MD NOTIFIED THAT PT HAVING A BAD HEADACHE. VERBALIZES UNDERSTANDING
[2019-09-17 22:54] VITALS: BP 117/61; PULSE 58; RESP 19; O2SAT 95
[2019-09-17] MEDS: Acetaminophen 500 MG Tablet 1000 MG PO (22:59)
--- NOTE | 2019-09-17 23:24 | ED.RN ---
PT MOTHER APPROACHES NURSES STATIONS STATES TO THIS RN THE PT, IS HAVING ONE OF HIS EPISODES AGAIN. THIS RN ENTERED PT ROOM PT SAYS HELLO TO THIS RN AND IS LAYING SUPINE IN BED. PT WITH DEEP HUMMING BREATHS. PT VS STABLE BP 139/76, HR 102, RESPIRES 17, 99%RA. NO SEIZURE LIKE ACTIVITY NOTED BY THIS RN. DR. SANTANA INFORMED. WILL CONTINUE TO MONITOR.
[2019-09-18 00:02] VITALS: BP 125/97; PULSE 90; RESP 15; O2SAT 98
[2019-09-18 00:44] VITALS: BP 116/80; PULSE 87; RESP 15; O2SAT 98
--- NOTE | 2019-09-18 00:45 | ED.RN ---
PT PARENTS EDUCATED ON DISCHARGE INSTRUCTIONS AND AND HOME GOING PAPERWORK. PT MOTHER VERBALIZES UNDERSTANDING AND FOLLOW UP INSTRUCTIONS. PT IV D/C AND COVERED WITH 2X2 GAUZE AND PAPER TAPE. PT DRESSES SELF AND AMBUALTES PARTIALLY DOWN THE [place], THEN REQUESTS WHEELCHAIR TO FAMILY VEHICLE.
[2019-09-18 12:51] LABS: Pathologist Review Reviewed
== END 2019-09-18 00:50 | disposition home or self-care (01) ==
PROVIDERS: Emergency Provider Emergency Medicine; Family Provider Internal Medicine; PCP Internal Medicine
DX: S06.5X9D Traumatic subdural hemorrhage with loss of consciousness of unspecified duration, subsequent encounter (principal); W19.XXXD Unspecified fall, subsequent encounter; E11.9 Type 2 diabetes mellitus without complications; I10 Essential (primary) hypertension; G40.909 Epilepsy, unspecified, not intractable, without status epilepticus; Z79.4 Long term (current) use of insulin; Z79.899 Other long term (current) drug therapy; F17.200 Nicotine dependence, unspecified, uncomplicated
CPT/HCPCS: 70450; 80048; 80076; 80320; 85025; 93005; 96360; 96361; 99285; J7030; A4216; G0480

== ENCOUNTER 2019-09-19 10:58 | Emergency (ER) | payer MEDICARE, MEDICAID, SELFPAY ==
[2019-09-19 11:07] VITALS: BP 137/104; PULSE 124; RESP 24; TEMP 36.9; O2SAT 97; BMI 25.2
--- NOTE | 2019-09-19 11:31 | CT_ITS ---
We are attempting to reach an attending provider to discuss findings. An addendum with communication details will be sent when the communication is complete. STUDY: CT BRAIN WITHOUT CONTRAST REASON FOR EXAM: Male, 44 years old. Altered mental status, subdural hematoma. RADIATION DOSAGE (If Supplied By Facility): CTDIvol = ( 44.99 ) mGy, DLP = ( 846.73 ) mGycm TECHNIQUE: Transaxial CT imaging of the brain was performed without administration of intravenous contrast material. Individualized dose optimization techniques were used for this CT. COMPARISON: 09/17/2019 FINDINGS: Normal soft tissue structures. Normal calvarium. Normal size ventricles and extra-axial spaces for the patient's age. Normal white matter tracts of the cerebral hemispheres. Normal basal ganglia and thalami. Normal brainstem. Normal cerebellum. Interval acute rebleeding into the right subdural hematoma which is increased in thickness measuring 1.5 cm thick superiorly and contains areas of increased attenuation consistent with acute hemorrhage. The subdural hematoma concentrically continues inferiorly surrounding the right hemisphere and along the right side of the tentorium. This is now associated with mass effect with effacement of sulci the right hemisphere and interval development of 5 mm of [id number] midline shift (subfalcine herniation) arthrosis. There are no findings of an acute ischemic infarction. Normal visualized paranasal sinuses. CT/Brain/Head without Contrast IMPRESSION: Interval recurrent hemorrhage within the right-sided subdural hematoma now measuring up to 15 mm in thickness with associated mass effect on the right hemisphere interval development of 5 mm right to left midline shift (subfalcine herniation) (. Electronically Signed: Winston Waters MD at 13:37 EDT Tel , Service support ,
--- NOTE | 2019-09-19 11:31 | CT_ITS ---
STUDY: CT CERVICAL SPINE WITHOUT CONTRAST REASON FOR EXAM: Male, 44 years old. Altered mental status RADIATION DOSAGE (If Supplied By Facility): CTDIvol = ( 20.89 ) mGy, DLP = ( 437.63 ) mGycm TECHNIQUE: High resolution transaxial imaging was performed without contrast material. Sagittal and coronal images were reconstructed. Individualized dose optimization techniques were used for this CT. COMPARISON: 09/06/2019 FINDINGS: Normal craniovertebral junction. There are degenerative changes of the anterior atlantoaxial articulation. Normal odontoid process. Normal cervical lordosis. Normal vertebral bodies and posterior osseous elements. C2-3: Normal endplates. Normal disc height and morphology. Normal central canal and intervertebral neuroforamina. C3-4: Normal endplates. Normal disc height and morphology. Normal central canal and intervertebral neuroforamina. C4-5: Normal endplates. Normal disc height and morphology. Normal central canal and intervertebral neuroforamina. C5-6: Mild broad disc osteophyte complex and bilateral carotid joint hypertrophy produces mild spinal stenosis and mild bilateral neural foraminal stenosis. C6-7: Mild broad disc osteophyte complex and bilateral uncovertebral hypertrophy produces mild spinal stenosis and mild bilateral neural foraminal stenosis. C7-T1: Normal endplates. Normal disc height and morphology. Normal central canal and intervertebral neuroforamina. Normal visualized soft tissue structures. CT/Spine Cervical without Contras IMPRESSION: No acute fracture or subluxation. Electronically Signed: Winston Waters MD at 13:43 EDT Tel , Service support ,
--- NOTE | 2019-09-19 11:31 | EKG12_ITS ---
Test Reason : ALT LOC Blood Pressure : / mmHG Vent. Rate : 123 BPM Atrial Rate : 123 BPM P-R Int : 122 ms QRS Dur : 086 ms QT Int : 326 ms P-R-T Axes : 049 037 051 degrees QTc Int : 466 ms Poor data quality, interpretation may be adversely affected Sinus tachycardia Possible Left atrial enlargement Nonspecific ST and T wave abnormality Abnormal ECG Confirmed by RADHA FUNK MD ([id number]), society editor JD BEARDEN ([id number]) on 09/23/2019 10:51:33 AM Referred By: KYM
--- NOTE | 2019-09-19 11:35 | RAD_ITS ---
STUDY: X-RAY CHEST REASON FOR EXAM: Male, 44 years old. Altered mental status, shortness of breath. TECHNIQUE: Single AP portable view of the chest. COMPARISON: 09/09/2019 FINDINGS: The lungs are clear and expanded. There is no demonstrated pleural abnormality. Normal size heart. Normal mediastinum and sherry. Normal visualized pulmonary arteries. Normal visualized aortic arch and descending thoracic aorta. Normal visualized thoracic spine. Normal visualized ribs, clavicles, and shoulders. There is no demonstrated abnormality of the visualized soft tissue structures of the upper abdomen. RAD/Chest 1 View (Portable) IMPRESSION: Normal x-ray examination of the chest. Electronically Signed: Winston Waters MD at 11:54 EDT Tel , Service support ,
--- NOTE | 2019-09-19 11:44 | ED.VIS.GEN ---
History of Present Illness Chief Complaint: Alt LOC Informant: Family Limited by: - - AMS Onset: Days Context: Sudden Onset Timing: Waxes and wanes Narrative: Is a 44-year-old male with history of type 1 diabetes mellitus, alcohol dependency and recent intracranial hemorrhage presenting with altered mental status and concern for seizure activity. Parents state that patient was recently admitted and discharged to [facility] for DKA and was intracranial bleed. Patient started on Keppra. Patient has been discharged, 2 days ago, patient has had multiple episodes of falling and confusion. His episodes were he stares off and cannot communicate. Will not follow any commands. His mother notes that he had 2 episodes where he does have shaking all over his body. He had episodes where he is urinated in his bed. Patient has had multiple falls over the past 2 days and has had his head. Patient has not had any further alcohol use. Parents state he was last normal at 9:00 last night. They state he has been compliant with all of his medications. Prior similar symptoms: Yes - Seizure, subdural hematoma Recent Illness/Hospitalization: Yes - [facility] Past Medical History - Allergies and Home Meds Allergies/Adverse Reactions: Allergies zinc Allergy (Intermediate, Verified 09/17/19 22:27) [facility] Primary Care Physician: Moni Cintron MD [Primary Care Provider] - Past Medical History: - - Abdominal hematoma, DKA, DM 1, alcohol abuse Surgical History: noncontributory Lives: With Family Smoking Status: Unknown if ever smoked - Family History Maternal Family History: Family History (Last Reviewed 08/29/19 @ 04:58 by Enrique Gaitan MD) Mother Arthritis Father Diabetes Grandfather Diabetes Grandmother Diabetes Family History: Reports: No pertinent history Review of Systems ROS: Unable to Obtain - Mental status change Physical Exam Vital Signs/Narrative: Vital Signs Temp Pulse Resp BP Pulse Ox 09/19/19 11:07 98.4 F 124 H 24 H 137/104 H 97 Inital Vital Signs reviewed: Yes General: Well nourished, Well developed, No Acute Distress Head: Normocephalic, Atraumatic Eyes: Perrl, EOMI ENT: No rhinorrhea, Dry mucous membranes Neck: Supple, Nontender, - - No midline tenderness Cardiovascular: Regular rhythm, No murmurs, Tachycardia Respiratory: No distress, CTA bilaterally, Chest nontender Abdomen: Soft, Nontender, Nondistended, Normal bowel sounds Back: Nontender, Normal Inspection Extremities: Nontender, No edema Skin: Normal color, No rash, Diaphoresis Neurological: Alert, Cranial nerves II-XII grossly intact, Normal Strength, Normal Sensation, Confused, - - Fine resting tremor in his arms, patient unable to precipitate in initial neurologic exam, holding his arms flexed and fighting extension, patient is nonverbal when he does speak it is clear Psychological: - - Withdrawn Diagnostic/Tx/Re-eval Chest X-Ray - ED: 1 View, Read by ED Physician, Read by Radiologist, No Acute Disease Laboratory Results - last 24 hr 09/19/19 09/19/19 09/19/19 11:50 11:50 11:50 WBC 13.1 H RBC 3.19 L Hgb 10.7 L Hct 31.2 L MCV 97.8 H MCH 33.5 H MCHC 34.3 RDW Std Deviation 46.9 H RDW Coeff of Omayra 13.1 Plt Count 544 H MPV 9.3 Immature Gran % (Auto) 0.500 Neut % (Auto) 64.4 Lymph % (Auto) 13.3 L [place] % (Auto) 21.1 H Eos % (Auto) 0.2 Baso % (Auto) 0.5 Absolute Neuts (auto) 8.5 H Absolute Lymphs (auto) 1.74 Nucleated RBC % 0 Diff Path Review March foll PT 13.1 INR 1.0 APTT 30.9 Specimen Type Sample Site pH Bicarbonate Actual POC Total CO2 Base Excess O2 Saturation ABG pCO2 ABG pO2 Anurag Test O2 Delivery Device Blood Gas Notified Whom Blood Gas Notified Time Sodium 137 Potassium 3.4 L Chloride 101 Carbon Dioxide 27.0 Anion Gap 9 BUN 7 Creatinine 0.68 L Estim Creat Clear Calc 153.74 Est GFR (MDRD) Af Amer 163 Est GFR (MDRD) Non-Af 135 BUN/Creatinine Ratio 10.3 Glucose 208 H Lactic Acid Calcium 9.0 Total Bilirubin 0.40 AST 16 ALT 19 Alkaline Phosphatase 81 Ammonia Total Creatine Kinase 101 Total Protein 7.0 Albumin 3.3 Globulin 3.7 Albumin/Globulin Ratio 0.9 Urine Color Urine Clarity Urine pH Ur Specific [place] Urine Protein Urine Glucose (UA) Urine Ketones Urine Occult Blood Urine Nitrite Urine Bilirubin Urine Urobilinogen Ur Leukocyte Esterase Urine RBC Urine WBC Ur Squamous Epith Cells Urine Bacteria Urine Mucus Salicylates Urine Opiates Screen Urine Methadone Screen Acetaminophen Ur Barbiturates Screen Ur Phencyclidine Scrn Ur Amphetamines Screen U Methamphetamin-MDMA U Benzodiazepines Scrn Urine Cocaine Screen U Cannabinoids Screen Ur Drug Screen Comment Ethyl Alcohol Acetone Level 09/19/19 09/19/19 09/19/19 11:50 11:50 11:55 WBC RBC Hgb Hct MCV MCH MCHC RDW Std Deviation RDW Coeff of Omayra Plt Count MPV Immature Gran % (Auto) Neut % (Auto) Lymph % (Auto) [place] % (Auto) Eos % (Auto) Baso % (Auto) Absolute Neuts (auto) Absolute Lymphs (auto) Nucleated RBC % Diff Path Review PT INR APTT Specimen Type Sample Site pH Bicarbonate Actual POC Total CO2 Base Excess O2 Saturation ABG pCO2 ABG pO2 Anurag Test O2 Delivery Device Blood Gas Notified Whom Blood Gas Notified Time Sodium Potassium Chloride Carbon Dioxide Anion Gap BUN Creatinine Estim Creat Clear Calc Est GFR (MDRD) Af Amer Est GFR (MDRD) Non-Af BUN/Creatinine Ratio Glucose Lactic Acid 1.2 Calcium Total Bilirubin AST ALT Alkaline Phosphatase Ammonia Total Creatine Kinase Total Protein Albumin Globulin Albumin/Globulin Ratio Urine Color Urine Clarity Urine pH Ur Specific [place] Urine Protein Urine Glucose (UA) Urine Ketones Urine Occult Blood Urine Nitrite Urine Bilirubin Urine Urobilinogen Ur Leukocyte Esterase Urine RBC Urine WBC Ur Squamous Epith Cells Urine Bacteria Urine Mucus Salicylates < 1.7 L Urine Opiates Screen Urine Methadone Screen Acetaminophen < 2.0 L Ur Barbiturates Screen Ur Phencyclidine Scrn Ur Amphetamines Screen U Methamphetamin-MDMA U Benzodiazepines Scrn Urine Cocaine Screen U Cannabinoids Screen Ur Drug Screen Comment Ethyl Alcohol < 3.0 Acetone Level NEGATIVE 09/19/19 09/19/19 09/19/19 11:55 12:52 12:55 WBC RBC Hgb Hct MCV MCH MCHC RDW Std Deviation RDW Coeff of Omayra Plt Count MPV Immature Gran % (Auto) Neut % (Auto) Lymph % (Auto) [place] % (Auto) Eos % (Auto) Baso % (Auto) Absolute Neuts (auto) Absolute Lymphs (auto) Nucleated RBC % Diff Path Review PT INR APTT Specimen Type ART Sample Site L Radial pH 7.47 H Bicarbonate Actual 25.2 POC Total CO2 26 Base Excess 1 O2 Saturation 98 ABG pCO2 34.8 L ABG pO2 91 Anurag Test POS O2 Delivery Device Room Air Blood Gas Notified Whom ED Blood Gas Notified Time 1255 Sodium Potassium Chloride Carbon Dioxide Anion Gap BUN Creatinine Estim Creat Clear Calc Est GFR (MDRD) Af Amer Est GFR (MDRD) Non-Af BUN/Creatinine Ratio Glucose Lactic Acid Calcium Total Bilirubin AST ALT Alkaline Phosphatase Ammonia 16.0 Total Creatine Kinase Total Protein Albumin Globulin Albumin/Globulin Ratio Urine Color Urine Clarity Urine pH Ur Specific [place] Urine Protein Urine Glucose (UA) Urine Ketones Urine Occult Blood Urine Nitrite Urine Bilirubin Urine Urobilinogen Ur Leukocyte Esterase Urine RBC Urine WBC Ur Squamous Epith Cells Urine Bacteria Urine Mucus Salicylates Urine Opiates Screen NEGATIVE Urine Methadone Screen NEGATIVE Acetaminophen Ur Barbiturates Screen NEGATIVE Ur Phencyclidine Scrn NEGATIVE Ur Amphetamines Screen NEGATIVE U Methamphetamin-MDMA POSITIVE H U Benzodiazepines Scrn NEGATIVE Urine Cocaine Screen NEGATIVE U Cannabinoids Screen NEGATIVE Ur Drug Screen Comment Ethyl Alcohol Acetone Level 09/19/19 12:55 WBC RBC Hgb Hct MCV MCH MCHC RDW Std Deviation RDW Coeff of Omayra Plt Count MPV Immature Gran % (Auto) Neut % (Auto) Lymph % (Auto) [place] % (Auto) Eos % (Auto) Baso % (Auto) Absolute Neuts (auto) Absolute Lymphs (auto) Nucleated RBC % Diff Path Review PT INR APTT Specimen Type Sample Site pH Bicarbonate Actual POC Total CO2 Base Excess O2 Saturation ABG pCO2 ABG pO2 Anurag Test O2 Delivery Device Blood Gas Notified Whom Blood Gas Notified Time Sodium Potassium Chloride Carbon Dioxide Anion Gap BUN Creatinine Estim Creat Clear Calc Est GFR (MDRD) Af Amer Est GFR (MDRD) Non-Af BUN/Creatinine Ratio Glucose Lactic Acid Calcium Total Bilirubin AST ALT Alkaline Phosphatase Ammonia Total Creatine Kinase Total Protein Albumin Globulin Albumin/Globulin Ratio Urine Color Yellow Urine Clarity Sl. Cloudy Urine pH 7.0 Ur Specific [place] 1.010 Urine Protein Negative Urine Glucose (UA) 1000 H Urine Ketones 15 H Urine Occult Blood 25 H Urine Nitrite Negative Urine Bilirubin Negative Urine Urobilinogen Normal Ur Leukocyte Esterase Negative Urine RBC 0-5 SEEN Urine WBC 0 SEEN Ur Squamous Epith Cells 0-5 SEEN Urine Bacteria 0 SEEN Urine Mucus 0 SEEN Salicylates Urine Opiates Screen Urine Methadone Screen Acetaminophen Ur Barbiturates Screen Ur Phencyclidine Scrn Ur Amphetamines Screen U Methamphetamin-MDMA U Benzodiazepines Scrn Urine Cocaine Screen U Cannabinoids Screen Ur Drug Screen Comment Ethyl Alcohol Acetone Level Diagnostic Data Brain CT 09/19/19 11:31 IMPRESSION: Interval recurrent hemorrhage within the right-sided subdural hematoma now measuring up to 15 mm in thickness with associated mass effect on the right hemisphere interval development of 5 mm right to left midline shift (subfalcine herniation) (. Electronically Signed: Winston Waters MD at 13:37 EDT Tel , Service support , ADDENDUM: 09/19/19 1347 IMPRESSION: Interval recurrent hemorrhage within the right-sided subdural hematoma now measuring up to 15 mm in thickness with associated mass effect on the right hemisphere interval development of 5 mm right to left midline shift (subfalcine herniation) (. N.B. : The above information has been verbally conveyed by Winston Waters MD to Soo Henson MD, on 09/19/2019 13:40:06 (ET). Electronically Signed: Winston Waters MD at 13:37 EDT Tel , Service support , Cervical Spine CT 09/19/19 11:31 IMPRESSION: No acute fracture or subluxation. Electronically Signed: Winston Waters MD at 13:43 EDT Tel , Service support , Chest X-Ray 09/19/19 11:35 IMPRESSION: Normal x-ray examination of the chest. Electronically Signed: Winston Waters MD at 11:54 EDT Tel , Service support , - Rhythm Strip Rhythm Strip: Sinus Tach Rate: 123 Ectopy: None - EKG Initial EKG Interpretation: Sinus Tachycardia, - - Sinus tachycardia rate of 123 Normal intervals Normal axis Normal ST segments - Medical Decision Making Patient is evaluated for mental status change. He has a nonfocal neurologic exam. Initially patient is staring off and withdrawn. Patient is tremulous. He is given IV Ativan because of his history of alcohol dependency in case his symptoms are consistent with a postictal phase and DTs. Patient has no report of any seizure activity. On reevaluation after Ativan patient does have improvement of his mentation and a nonfocal neurologic exam. He is given 2 L of IV fluid. Lactate is normal. Metabolic work-up is remarkable for mild leukocytosis. Does not have an anion gap or other signs consistent with DKA. Urinalysis not show infection but is consistent with some mild dehydration. Repeat head CT shows acute on chronic subdural hematoma with a 5 mm right to left shift. Results are discussed with the radiologist. Patient will be transferred back to [facility] where his neurosurgeon is. Discussed with Dr. Chappell who accepts the patient. Patient is hemodynamically stable in the emergency room and does not require emergent hypertonic saline, mannitol or airway protection at this time. Patient and family are agreeable with this plan. ED Disposition - Plan for ED Patient: Disposition: [facility] Diagnosis: Acute on chronic intracranial subdural hematoma, Change in mental status, Tachycardia Referrals: Moni Cintron MD [Primary Care Provider] -
[2019-09-19 12:09] LABS: Absolute Lymphocyte Count 1.74 X10^3/uL (0.83-4.51); Absolute Neutrophil Count 8.5 X10^3/uL (2.0-7.7); Basophil# 0.07 X10^3/uL; Basophil% 0.5 % (0-1); Eosinophil# 0.03 X10^3/uL; Eosinophils% 0.2 % (0-5); Hematocrit 31.2 % (40-54); Hemoglobin 10.7 g/dL (13.0-16.5); Lymphocyte # 1.74 X10^3/ul (4.0); Lymphocyte % 13.3 % (19-41); Mean Corp Hgb Conc 34.3 g/dL (32-36); Mean Corpuscular Hgb 33.5 pg (27.0-32.0); Mean Corpuscular Volume 97.8 fL (80-94); Mean Platelet Vol. 9.3 fl (6.2-12.0); Monocyte# 2.77 X10^3/uL; Monocyte% 21.1 % (0-10); NRBC Flagged by Analyzer 0 % (0-5); Neutrophil # 8.46 X10^3/uL (2.7-7.7); Neutrophil % 64.4 % (47-70); POSITIVE DIFFERENTIAL YES; Platelet Count 544 K/mm3 (150-450); RBC Distribution Width CV 13.1 % (11.6-14.6); RBC Distribution Width SD 46.9 fl (35.1-43.9); Red Blood Count 3.19 M/mm3 (4.6-6.2); White Blood Count 13.1 K/mm3 (4.4-11.0)
[2019-09-19 12:11] LABS: Differential Indicated SCAN CRITERIA MET
[2019-09-19 12:20] LABS: Prothrombin Time (Protime)PT. 13.1 SECONDS (11.7-14.9)
[2019-09-19 12:21] LABS: Partial Thromboplast Time 30.9 Seconds (24.1-36.2)
[2019-09-19 12:27] LABS: ALB/GLOB Ratio 0.9 RATIO (0.9-2.4); AST(SGOT) 16 U/L (15-37); Alanine Aminotransfer ALT/SGPT 19 U/L (16-61); Albumin, Serum 3.3 g/dL (3.2-5.0); Alkaline Phosphatase 81 U/L (45-117); Anion Gap 9 (5-15); BUN 7 mg/dL (7-18); BUN/Creat Ratio 10.3 RATIO (10-20); CPK Total, Creatine Kinase 101 U/L (39-308); Chloride 101 mmol/L (98-107); Creatinine, Serum 0.68 mg/dL (0.70-1.30); EST Glomerular Filtration Rate 135 mL/min (>60); Est Glom Filt Rate - Afr Amer 163 mL/min (>60); Estimated Creatinine Clearance 153.74 ml/min; Globulin 3.7 g/dL (2.2-4.2); Glucose 208 mg/dL (74-106); Potassium 3.4 mmol/L (3.5-5.1); Sodium Level 137 mmol/L (136-145)
[2019-09-19 12:30] LABS: Lactic Acid 1.2 mmol/L (0.4-2.0)
[2019-09-19 12:56] LABS: Allen Test POS; Base Excess 1 mmol/L (-2 to +2); Bicarbonate 25.2 mmol/L (22-26); Blood Gas Specimen Type ART; O2 Delivery Device Room Air; PO2 91 mmHG (75-100); SITE L Radial; SO2 98 % (95-99); Time Given 1255; Total Carbon Dioxide 26 mmol/L; pCO2 34.8 mmHg (35-45); pH 7.47 (7.35-7.45)
[2019-09-19 13:00] VITALS: O2SAT 100
--- NOTE | 2019-09-19 13:00 | ED.RN ---
PATIENT FOUND ON THE FLOOR OF ROOM BY THIS NURSE, IV OUT, AND SIDE RAILS STILL UP. PATIENT LIFTED BACK INTO BED DUE TO UNSTEADY WITH 2 ASSIST. NO INJURY NOTED AND MD NOTIFIED OF THE FALL. NO NEW ORDERS. PATIENT EDUCATED ABOUT IMPORTANCE TO USE CALL LIGHT AND NOT GET OUT OF BED ON HIS OWN. PATIENT CONFUSED. CURTAIN AND DOOR OPENED.
[2019-09-19] MEDS: LORazepam 2 MG/ML Syringe IV (13:02)
[2019-09-19] MEDS: 0.9% Normal Saline 1,000 ML 999 ML IV ×2 (13:03→13:45)
[2019-09-19 13:17] LABS: Amphetamine Urine VISTA NEGATIVE (<1000 ng/mL); Barbiturate Urine VISTA NEGATIVE (< 200 ng/mL); Benzodiazepine Urine VISTA NEGATIVE (< 200 ng/mL); Cocaine Urine VISTA NEGATIVE (< 300 ng/mL); Ecstacy Urine VISTA POSITIVE (< 500 ng/mL); Methadone Urine VISTA NEGATIVE (< 300 ng/mL); PCP Urine VISTA NEGATIVE (< 25 ng/mL); THC Urine VISTA NEGATIVE (< 50 ng/mL); Vista UDS pH Range 6
[2019-09-19 13:23] LABS: Acetaminophen (Tylenol) Level < 2.0 ug/mL (10.0-30.0); Salicylate < 1.7 mg/dL (2.8-20.0)
[2019-09-19 13:24] LABS: Alcohol, Blood (Medical)-Serum < 3.0 mg/dL
[2019-09-19 14:10] VITALS: BP 139/104; PULSE 103; RESP 18; TEMP 37.7; O2SAT 98
[2019-09-19 14:35] LABS: Bacteria 0 SEEN /hpf (None Seen); Mucous, Urine 0 SEEN /hpf (<or=2+); White Blood Cells 0 SEEN /hpf (0-5)
[2019-09-19 14:50] LABS: Color, Urine Yellow (Yellow); Glucose, Dipstick 1000 mg/dl (Normal); Ketone-Dipstick 15 mg/dl (Negative); Leukocyte Esterase-Dipstick Negative /ul (Negative); Nitrite-Dipstick Negative (Negative); Occult Blood-Urine 25 /ul (Negative); Protein-Dipstick Negative (Negative); Urine Bilirubin Dipstick Negative (Negative); Urine Clarity Sl. Cloudy (Clear); Urine Urobilinogen Normal (Normal)
[2019-09-19 15:02] LABS: Red Blood Cells-Urine 0-5 SEEN /hpf (0-5); Squamous Epithelial Cells - UA 0-5 SEEN /hpf (0-5)
[2019-09-19 15:53] VITALS: BP 145/93; PULSE 112; PULSE 114; RESP 19; RESP 20; TEMP 37.4; O2SAT 100; O2SAT 99
[2019-09-20 11:48] LABS: Pathologist Review Reviewed
== END 2019-09-19 16:56 | disposition short-term general hospital (02) ==
PROVIDERS: Emergency Provider Emergency Medicine; Family Provider Internal Medicine; PCP Internal Medicine
DX: I62.01 Nontraumatic acute subdural hemorrhage (principal); I62.03 Nontraumatic chronic subdural hemorrhage; R00.0 Tachycardia, unspecified; E11.9 Type 2 diabetes mellitus without complications; Z79.4 Long term (current) use of insulin
CPT/HCPCS: 36600; 70450; 71045; 72125; 80053; 80307; 80320; 80329; 81001; 82009; 82140; 82550; 82803; 83605; 85025; 85610; 85730; 87040; 87086; 93005; 99285; A4216; G0480

== ENCOUNTER 2019-10-11 12:38 | Inpatient (IN) | payer MEDICARE, MEDICAID, SELFPAY ==
[2019-10-11] VITALS (18 sets, daily range): BP systolic 94–136; BP diastolic 47–75; PULSE 95–119; RESP 16–34; TEMP 36.3–37.1; O2SAT 96–100; BMI 17.1; BMI 17.9
--- NOTE | 2019-10-11 12:54 | EKG12_ITS ---
Test Reason : ALCOHOL INTOX Blood Pressure : / mmHG Vent. Rate : 191 BPM Atrial Rate : 031 BPM P-R Int : 000 ms QRS Dur : 102 ms QT Int : 210 ms P-R-T Axes : 000 074 091 degrees QTc Int : 374 ms Sinus tachycardia Peaked T waves Nonspecific ST and T wave abnormality Abnormal ECG Confirmed by GOOD GEORGE, RADHA ([id number]), non linear editor FERMIN ARAYA ([id number]) on 10/15/2019 11:08:11 AM Referred By: Devin Pittman Confirmed By:RADHA FUNK MD
--- NOTE | 2019-10-11 13:26 | CT_ITS ---
STUDY: CT BRAIN WITHOUT CONTRAST REASON FOR EXAM: Male, 44 years old. Confusion. History of seizures. RADIATION DOSAGE (If Supplied By Facility): CTDIvol = ( 60.81 ) mGy, DLP = ( 1067.08 ) mGycm TECHNIQUE: Transaxial CT imaging of the brain was performed without administration of intravenous contrast material. Individualized dose optimization techniques were used for this CT. COMPARISON: Comparison is made with prior examination dated September 19, 2019. FINDINGS: There is evidence of prior right frontoparietal craniotomy with persistent thickening of the overlying scalp. Small residual acute subdural hematoma overlying the right frontal parietal lobes. No significant mass effect is seen. Normal size ventricles and extra-axial spaces for the patient's age. Normal white matter tracts of the cerebral hemispheres. Normal basal ganglia and thalami. Normal brainstem. Normal cerebellum. There is no intracranial hemorrhage. There are no findings of an acute ischemic infarction. Normal visualized paranasal sinuses. CT/Brain/Head without Contrast IMPRESSION: Residual small acute subdural hematoma overlying the right frontoparietal lobes. No significant mass effect is seen at this time. Electronically Signed: John Tillman, at 14:57 EST , Service support ,
[2019-10-11 13:41] LABS: Absolute Lymphocyte Count 2.07 X10^3/uL (0.83-4.51); Absolute Neutrophil Count 25.4 X10^3/uL (2.0-7.7); Basophil% 0.3 % (0-1); Eosinophil# 0.13 X10^3/uL; Eosinophils% 0.4 % (0-5); Hematocrit 36.9 % (40-54); Hemoglobin 11.6 g/dL (13.0-16.5); Lymphocyte # 2.07 X10^3/ul (4.0); Lymphocyte % 6.7 % (19-41); Mean Corp Hgb Conc 31.4 g/dL (32-36); Mean Corpuscular Hgb 31.2 pg (27.0-32.0); Mean Corpuscular Volume 99.2 fL (80-94); Mean Platelet Vol. 10.6 fl (6.2-12.0); Monocyte# 2.81 X10^3/uL; Monocyte% 9.1 % (0-10); NRBC Flagged by Analyzer 0 % (0-5); Neutrophil # 25.38 X10^3/uL (2.7-7.7); Neutrophil % 82.1 % (47-70); POSITIVE COUNT YES; POSITIVE DIFFERENTIAL YES; POSITIVE MORPHOLOGY YES; Platelet Count 423 K/mm3 (150-450); RBC Distribution Width CV 14.1 % (11.6-14.6); RBC Distribution Width SD 50.8 fl (35.1-43.9); Red Blood Count 3.72 M/mm3 (4.6-6.2)
[2019-10-11 13:47] LABS: White Blood Count 30.9 K/mm3 (4.4-11.0)
[2019-10-11] MEDS: 0.9% Normal Saline 1,000 ML 999 ML IV (13:47)
--- NOTE | 2019-10-11 13:48 | ED.RN ---
lab called to report wbc 30.9. dr. meza and primary nurse made aware.
[2019-10-11] MEDS: Ondansetron 4 MG/2 ML Vial IV (13:52)
[2019-10-11 13:56] LABS: Bedside Glucose > 500 mg/dL (70-110)
[2019-10-11 13:56] LABS: Anion Gap 38 (5-15); BUN 44 mg/dL (7-18); BUN/Creat Ratio 21.8 RATIO (10-20); Calcium,Total 8.9 mg/dL (8.5-10.1); Chloride 78 mmol/L (98-107); Creatinine, Serum 2.02 mg/dL (0.70-1.30); EST Glomerular Filtration Rate 38 mL/min (>60); Est Glom Filt Rate - Afr Amer 47 mL/min (>60); Estimated Creatinine Clearance 42.48 ml/min; Glucose 1123 mg/dL (74-106); Magnesium 2.6 mg/dL (1.6-2.6); Potassium 5.9 mmol/L (3.5-5.1); Sodium Level 121 mmol/L (136-145)
--- NOTE | 2019-10-11 14:10 | ED.RN ---
co2 5 glucose 1123 called from the lab dr meza aware
--- NOTE | 2019-10-11 14:21 | ED.DCSUM_ITS ---
- ER Visit Summary Date of Service: 10/11/19 Chief Complaint: [Confusion, nausea] History of Present Illness: The patient is a 44 M [presents to the emergency department via EMS. The call went out as shortness of breath and nausea and possibly alcohol intoxication. Patient has history of alcohol abuse. Patient is a diabetic and history of alcoholic cardiomyopathy as well as history of DKA. Patient has been noncompliant with his medications. Patient denied drinking alcohol to me today. Head injuries. Patient does have history of recent craniotomy related to intracranial hemorrhage. Somewhat of a poor historian.] Physical Examination: [HEENT-PERRLA, EOMI. Cranial nerves II through XII grossly intact. TMs clear. Mucous membranes moist. No adenopathy. Has craniotomy scar to the right side of the scalp. Cardiovascular-regular rate and rhythm without murmur or ectopy Lungs-patient is tachypneic. Lungs are clear. No accessory muscle use or retractions. Abdomen-normoactive bowel sounds, soft, nontender, no rebound or rigidity, no peritoneal signs. Extremities-intact ?4, normal range of motion, normal pulses, atraumatic] Test Results: [EKG obtained showed a sinus rhythm with a ventricular rate of [address] changes and peaked T waves. CBC with differential showed an elevated white blood cell count of 30.9, hemoglobin of 11.6, hematocrit 36.9, platelets 423.] Chemistry showed a sodium 121, potassium 5.9, chloride 78, CO2 5.0, glucose 1121, BUN 44, creatinine 2.02. Patient had an anion gap of 38. Patient had large acetone in the serum. Scan of the brain without contrast obtained on my interpretation does not show any acute hemorrhage. ABG pending. EtOH level pending. Emergency Department Course and Treatment: [Patient had an IV line established was given a liter normal same fluid bolus. Patient was started on an insulin drip. Case was discussed with regional tanker truck driver Dr. Bangura. Case discussed with hospitalist will evaluate patient for admission.] Treatment Plan: [Admit for treatment of DKA.] Disposition: [Admit to intensive care unit] Impression: [DKA Acute kidney injury Hyponatremia Hyperkalemia not treated as it will resolve with treatment of DKA.] This note was generated with [employer] software. It may contain incorrect words, spelling, and punctuation that were not noted in review of the chart prior to signing ED Disposition - Plan for ED Patient: Referrals: Moni Cintron MD [Primary Care Provider] -
[2019-10-11 14:22] LABS: Alcohol, Blood (Medical)-Serum < 3.0 mg/dL
[2019-10-11 14:31] LABS: Base Excess -23 mmol/L (-2 to +2); Bicarbonate 5.3 mmol/L (22-26); Blood Gas Specimen Type ART; O2 Delivery Device Room Air; PO2 122 mmHG (75-100); SITE R Brachial; SO2 98 % (95-99); Time Given 1416; Total Carbon Dioxide 6 mmol/L; pCO2 13.4 mmHg (35-45); pH 7.21 (7.35-7.45)
--- NOTE | 2019-10-11 14:39 | CPS ---
Critical ABG results read to at 1440 on 10-11-2019 Mary TODD
--- NOTE | 2019-10-11 14:46 | HP.PCM_ITS ---
Problem List (1) Altered mental status Status: Acute Qualifiers: Altered mental status type: unspecified Qualified Code(s): R41.82 - Altered mental status, unspecified History of Present Illness Date of Admission: 10/11/19 Chief Complaint: Altered mental status The patient is a 44 year old M who was brought to the emergency room at [facility] by squad from a local hotel due to erratic behavior and confusion. Patient has been seen at this hospital many times over the past year and has a history of type 1 diabetes and has been admitted multiple times for DKA. Most recently the patient had a subdural hematoma, he had to be transferred to [place] for treatment and underwent surgery for drainage of the hematoma. Review of systems from the patient was unobtainable today due to confusion and lethargy. Labs were obtained in the emergency room, blood cell count was noted to be elevated above 30,000, history profile was abnormal-sodium 121, potassium 5.9, chloride 78, bicarb 5, anion gap 38, BUN 44, creatinine 2.02, and glucose 1123. Patient had a large amount of acetone in the blood, patient's ethyl alcohol level was normal. Patient had an ABG performed on room air, pH was 7.21, bicarb was 5.3, PCO2 was 13.4, PO2 was 122. Patient underwent a CT of the head, the report is pending at this time but the emergency room physician examined the images and did not see any evidence of acute pathology, only evidence of the patient's recent right subdural hematoma. Patient will be admitted to ICU, he will be seen by critical care, he is on insulin drip and will receive IV fluids. Diagnosis is DKA, acute kidney injury, and metabolic encephalopathy. Past Medical History Past Medical History (Chronic Problems): Chronic Problems (Last Reviewed 08/29/19 @ 04:57 by Enrique Gaitan MD) Anxiety and depression (Chronic) Tobacco dependence (Chronic) Diabetes type 1, uncontrolled (Chronic) DKA w/ encephalopathy 03/2019 Alcoholic cardiomyopathy (Chronic) Nicotine dependence (Chronic) Medical History: Medical History (Last Reviewed 08/29/19 @ 04:57 by Enrique Gaitan MD) Diabetes type 1, uncontrolled (Chronic) E10.65 DKA w/ encephalopathy 03/2019 Alcoholic cardiomyopathy (Chronic) I42.6 Nicotine dependence (Chronic) F17.200 Acute renal failure N17.9 Alcohol abuse F10.10 Anxiety F41.9 Dental caries K02.9 Depression F32.9 Diabetic ketoacidosis Onset Date: 03/2019 E11.10 Dilated cardiomyopathy I42.0 Elevated liver enzymes R74.8 H/O sepsis Z86.19 Hyponatremia E87.1 Lactic acidosis E87.2 Left atrial enlargement I51.7 Mycoplasma pneumonia J15.7 NSVT (nonsustained ventricular tachycardia) I47.2 Neuropathy G62.9 Prolonged QT interval R94.31 Seizure disorder G40.909 Steatosis of liver K76.0 Thrombocytopenia D69.6 ELIZABETH (acute kidney injury) N17.9 Metabolic encephalopathy Onset Date: 03/2019 G93.41 Diabetes type 1, controlled E10.9 dx : 08/2001 last exacerbation : dka : 05/13 hypoglycemic episode : never er visit : 05/13 Allergies zinc Allergy (Intermediate, Verified 10/11/19 12:42) Hives Home Medications: Ambulatory Orders Medication Instructions Recorded levetiracetam 500 mg tablet 1,500 mg PO BID 01/18/18 mirtazapine 15 mg tablet 30 mg PO QHS 01/18/18 Folic Acid 1 tab PO DAILY 30 Days #30 tab 04/16/19 Atorvastatin Calcium 20 mg PO DAILY 04/22/19 Lisinopril [Zestril] 2.5 mg PO QDAY 04/24/19 Carvedilol 3.125 mg PO BID 05/13/19 Bupropion HCl [Bupropion Xl] 150 mg PO DAILY 09/17/19 Melatonin 6 mg PO QHS 09/17/19 Thiamine HCl [Vitamin B-1] 100 mg PO DAILY 09/17/19 Magnesium Oxide 400 mg PO DAILY 10/11/19 Oxycodone [Oxyir] 5 mg PO TID PRN PRN 10/11/19 Surgical History: Surgical History (Last Reviewed 08/29/19 @ 04:57 by Enrique Gaitan MD) History of left heart catheterization Onset Date: 04/18/16 Z98.890 Hx of tonsillectomy Z98.890, Z90.89 Surgical History: noncontributory Psychiatric History: No pertinent psych hx, Anxiety, Depression Lives: Alone Smoking Status: Current every day smoker Tobacco Use: Cigarettes Alcohol: Heavy Drugs: - - Unknown - *Family History Maternal Family History: Family History (Last Reviewed 08/29/19 @ 04:58 by Enrique Gaitan MD) Mother Arthritis Father Diabetes Grandfather Diabetes Grandmother Diabetes History Items: No pertinent history Paternal Family History: Family History (Last Reviewed 08/29/19 @ 04:58 by Enrique Gaitan MD) Mother Arthritis Father Diabetes Grandfather Diabetes Grandmother Diabetes History Items: No pertinent history Review of Systems Comment: Unobtainable from patient due to metabolic encephalopathy VTE Information - Inpt Only VTE Present on Admission: No VTE Mechan Device Prophylaxis: None VTE Pharm Prophylaxis ordered?: Yes Patient Problems: Active and Suspected Problems (Last Reviewed 08/29/19 @ 04:57 by Enrique Gaitan MD) Altered mental status (Acute) - Physical Exam Vitals/I&O's: Vital Signs Temp Pulse Resp BP Pulse Ox 97.4 F L 119 H 28 H 121/63 H 96 10/11/19 12:39 10/11/19 14:00 10/11/19 14:00 10/11/19 14:00 10/11/19 14:00 Oxygen Delivery Method Room Air Weight: 63.7 kg Body Mass Index (BMI) 17.1 Finger Stick Blood Glucose 1,123 General: Alert, Cooperative, Well developed, Confused, Disoriented HEENT: Atraumatic, PERRLA, EOMI, Normocephalic, - - There is a healing surgical scar over the patient's right temporal area extending Oral: Dry Mucosa Neck: Supple, No JVD, Negative Carotid Bruits, Trachea Midline, Thyroid Normal Size and Texture Lungs: Clear to auscultation, Normal air movement, No rhonchi, No wheeze, No rales Cardiovascular: Regular rate, Regular Rhythm, Normal S1, Normal S2, No murmurs, No Ectopic Activity, PMI Normal, No rub noted, Tachycardic Abdomen: Bowel Sounds Present, Soft, Non Tender, Non-Distended Extremities: No clubbing, No cyanosis, No edema, Capillary Refill Less than 3 Seconds Skin: - - Patient has what appears to be ecchymotic areas which are mild over the his knees bilaterally Musculoskeletal: No Tenderness to Palpation of Joints or Extremities Neurological: Cranial nerves II-XII grossly intact, Neuro grossly intact, Sensory exam intact to light touch and pain Psych/Mental Status: - - Patient is lethargic and confused Laboratory Results 10/11/19 12:53: POC Glucose > 500 H* 10/11/19 13:25: WBC Pending, RBC 3.72 L, Hgb 11.6 L, Hct 36.9 L, MCV 99.2 H, MCH 31.2, MCHC 31.4 L, RDW Std Deviation 50.8 H, RDW Coeff of Omayra 14.1, Plt Count 423, MPV 10.6, Immature Gran % (Auto) 1.400 H, Neut % (Auto) 82.1 H, Lymph % (Auto) 6.7 L, [place] % (Auto) 9.1, Eos % (Auto) 0.4, Baso % (Auto) 0.3, Absolute Neuts (auto) 25.4 H, Absolute Lymphs (auto) 2.07, Nucleated RBC % 0 10/11/19 13:25: Sodium 121 L, Potassium 5.9 H, Chloride 78 L, Carbon Dioxide 5.0 L*, Anion Gap 38 H, BUN 44 H, Creatinine 2.02 H, Estim Creat Clear Calc 42.48, Est GFR (MDRD) Af Amer 47 L, Est GFR (MDRD) Non-Af 38 L, BUN/Creatinine Ratio 21.8 H, Glucose 1123 H*, Calcium 8.9, Magnesium 2.6 10/11/19 13:25: Acetone Level LARGE H 10/11/19 13:25: Sodium Pending, Potassium Pending, Chloride Pending, Carbon Dioxide Pending, Anion Gap Pending, BUN Pending, Creatinine Pending, Est GFR (MDRD) Af Amer Pending, Est GFR (MDRD) Non-Af Pending, BUN/Creatinine Ratio Pending, Glucose Pending, Calcium Pending 10/11/19 13:25: Ethyl Alcohol < 3.0 10/11/19 14:20: Specimen Type ART, Sample Site R Brachial, pH 7.21 L, Bicarbonate Actual 5.3 L, POC Total CO2 6, Base Excess -23 L, O2 Saturation 98, ABG pCO2 13.4 L*, ABG pO2 122 H, Anurag Test NA, O2 Delivery Device Room Air, Blood Gas Notified Whom ED , Blood Gas Notified Time 1416 Current Medications Insulin Human Lispro 100 unit/ (Sodium Chloride) 100 mls @ 6.37 mls/hr IV .[id number] [facility]; Protocol Last Admin: 10/11/19 13:47 Dose: 0.1 units/kg/hr, 6.4 mls/hr Documented by: Assessment/Plan All Active Problems (Last Reviewed 08/29/19 @ 04:57 by Enrique Gaitan MD) Altered mental status (Acute) Acute kidney injury (Acute) DKA (diabetic ketoacidoses) (Acute) #1 recurrent DKA-patient will be admitted to the ICU, he will be maintained on insulin drip and received IV fluid resuscitation, critical care will see the patient in consultation. I will allow the patient have oral medications with sips of water. #2 acute kidney injury secondary to #1-again patient will receive aggressive fluid resuscitation #3 metabolic encephalopathy secondary to #1 #4 chronic alcoholism #5 dilated cardiomyopathy #6 seizure disorder-patient is on Keppra #7 recent intracranial surgery for subdural hematoma-patient got out of [facility] rehab this Monday according to his parents-I talked with his mother by phone today to let her know that he is hospitalized. Patient's mother states that the patient has not been following his diet and she has not seen him in the last 2 days. #8 leukocytosis-probably secondary to stress of DKA, repeat labs tomorrow, patient does not have evidence of an acute infection at this time. Code Visit Inpatient E&M: 11230 Init Hosp L3
[2019-10-11 14:56] LABS: Bedside Glucose > 500 mg/dL (70-110)
[2019-10-11 14:59] LABS: Acanthocytes RARE; Burr Cells 1+; Differential Comment SCANNED; Platelet Estimate ADEQUATE (ADEQ)
[2019-10-11 15:08] LABS: Bacteria 0 SEEN /hpf (None Seen); Mucous, Urine 0 SEEN /hpf (<or=2+); Red Blood Cells-Urine 0 SEEN /hpf (0-5); White Blood Cells 0 SEEN /hpf (0-5)
[2019-10-11 15:21] LABS: Color, Urine Yellow (Yellow); Glucose, Dipstick 1000 mg/dl (Normal); Leukocyte Esterase-Dipstick Negative /ul (Negative); Nitrite-Dipstick Negative (Negative); Occult Blood-Urine Negative /ul (Negative); Protein-Dipstick Negative (Negative); Specific Gravity, Urine 1.015 (1.002-1.030); Urine Bilirubin Dipstick Negative (Negative); Urine Clarity Sl. Cloudy (Clear); Urine Urobilinogen Normal (Normal)
[2019-10-11 15:23] LABS: Ketone-Dipstick 150 mg/dl (Negative)
--- NOTE | 2019-10-11 15:23 | ED.RN ---
URINE KETONES 150 PER LAB, DR. VEGA AWARE.
--- NOTE | 2019-10-11 15:24 | ED.RN ---
LAB WAS ABLE TO OBTAIN BLOOD AT 1500, WAITING RESULTS TO ADJUST INSULIN DOSE. ATTEMPTED TO CALL REPORT TO ICU, NURSE NOT AVAILABLE AT THIS TIME TO TAKE REPORT, ICU NURSE WILL CALL BACK.
[2019-10-11 15:31] LABS: Squamous Epithelial Cells - UA 0-5 SEEN /hpf (0-5)
[2019-10-11 15:45] LABS: Anion Gap 33 (5-15); BUN 43 mg/dL (7-18); Calcium,Total 8.1 mg/dL (8.5-10.1); Chloride 85 mmol/L (98-107); Creatinine, Serum 2.05 mg/dL (0.70-1.30); EST Glomerular Filtration Rate 38 mL/min (>60); Est Glom Filt Rate - Afr Amer 46 mL/min (>60); Estimated Creatinine Clearance 41.86 ml/min; Glucose 956 mg/dL (74-106); Potassium 4.7 mmol/L (3.5-5.1); Sodium Level 125 mmol/L (136-145)
[2019-10-11] MEDS: 0.9% Normal Saline 1,000 ML 500 ML IV (16:30)
[2019-10-11] MEDS: 0.9% Saline Lock 10 ML Syringe IV ×2 (17:07→22:33)
[2019-10-11 17:15] LABS: Anion Gap 31 (5-15); BUN 43 mg/dL (7-18); BUN/Creat Ratio 21.9 RATIO (10-20); Chloride 87 mmol/L (98-107); Creatinine, Serum 1.96 mg/dL (0.70-1.30); EST Glomerular Filtration Rate 40 mL/min (>60); Est Glom Filt Rate - Afr Amer 48 mL/min (>60); Estimated Creatinine Clearance 41.24 ml/min; Glucose 833 mg/dL (74-106); Potassium 3.8 mmol/L (3.5-5.1); Sodium Level 127 mmol/L (136-145)
[2019-10-11] MEDS: 0.9% Normal Saline 1,000 ML 250 ML IV (18:34)
[2019-10-11 18:41] LABS: Glucose 721 mg/dL (74-106)
[2019-10-11 20:04] LABS: Glucose 654 mg/dL (74-106)
[2019-10-11 21:39] LABS: Anion Gap 27 (5-15); BUN 43 mg/dL (7-18); BUN/Creat Ratio 24.3 RATIO (10-20); Calcium,Total 7.8 mg/dL (8.5-10.1); Chloride 97 mmol/L (98-107); Creatinine, Serum 1.77 mg/dL (0.70-1.30); EST Glomerular Filtration Rate 45 mL/min (>60); Est Glom Filt Rate - Afr Amer 54 mL/min (>60); Estimated Creatinine Clearance 45.67 ml/min; Glucose 626 mg/dL (74-106); Potassium 4.2 mmol/L (3.5-5.1); Sodium Level 133 mmol/L (136-145)
[2019-10-11 21:50] LABS: Bedside Glucose > 500 mg/dL (70-110)
[2019-10-11 21:50] LABS: Bedside Glucose > 500 mg/dL (70-110)
[2019-10-11] MEDS: MELATONIN 3 MG TABLET 6 MG PO (22:35)
[2019-10-11] MEDS: Carvedilol 3.125 MG TABLET PO (22:35)
[2019-10-11] MEDS: Heparin Injection (Vial) 5,000 UNIT/ML VIAL 5000 UNIT SC (22:36)
[2019-10-11] MEDS: levETIRAcetam 500 MG Tablet 1500 MG PO (22:36)
[2019-10-11] MEDS: Mirtazapine 15 MG Tablet 30 MG PO (22:36)
[2019-10-11] MEDS: 0.9% Normal Saline 1,000 ML 175 ML IV (22:38)
[2019-10-11 23:23] LABS: Glucose 589 mg/dL (74-106)
[2019-10-12] VITALS (26 sets, daily range): BP systolic 88–121; BP diastolic 54–69; PULSE 68–100; RESP 13–21; TEMP 36.2–36.9; O2SAT 98–100
[2019-10-12 00:51] LABS: Bedside Glucose 493 mg/dL (70-110)
[2019-10-12 00:51] LABS: Bedside Glucose > 500 mg/dL (70-110)
[2019-10-12 00:51] LABS: Bedside Glucose > 500 mg/dL (70-110)
[2019-10-12 01:16] LABS: Anion Gap 20 (5-15); BUN 40 mg/dL (7-18); Calcium,Total 7.6 mg/dL (8.5-10.1); Chloride 102 mmol/L (98-107); Creatinine, Serum 1.67 mg/dL (0.70-1.30); EST Glomerular Filtration Rate 48 mL/min (>60); Est Glom Filt Rate - Afr Amer 58 mL/min (>60); Glucose 528 mg/dL (74-106); Potassium 4.1 mmol/L (3.5-5.1); Sodium Level 137 mmol/L (136-145)
[2019-10-12 02:21] LABS: Bedside Glucose 451 mg/dL (70-110)
[2019-10-12] MEDS: 0.9% Normal Saline 1,000 ML 125 ML IV (03:18)
[2019-10-12] MEDS: 0.9% Saline Lock 10 ML Syringe IV (04:57)
[2019-10-12 05:41] LABS: Bedside Glucose 350 mg/dL (70-110)
[2019-10-12 05:41] LABS: Bedside Glucose 382 mg/dL (70-110)
[2019-10-12 05:41] LABS: Bedside Glucose 366 mg/dL (70-110)
[2019-10-12 05:46] LABS: Absolute Lymphocyte Count 1.25 X10^3/uL (0.83-4.51); Absolute Neutrophil Count 17.7 X10^3/uL (2.0-7.7); Basophil# 0.02 X10^3/uL; Basophil% 0.1 % (0-1); Eosinophil# 0.01 X10^3/uL; Hematocrit 34.3 % (40-54); Hemoglobin 11.4 g/dL (13.0-16.5); Lymphocyte # 1.25 X10^3/ul (4.0); Mean Corp Hgb Conc 33.2 g/dL (32-36); Mean Corpuscular Hgb 31.2 pg (27.0-32.0); Mean Platelet Vol. 9.7 fl (6.2-12.0); Monocyte# 1.66 X10^3/uL; NRBC Flagged by Analyzer 0 % (0-5); Neutrophil # 17.72 X10^3/uL (2.7-7.7); Neutrophil % 85.4 % (47-70); POSITIVE DIFFERENTIAL YES; POSITIVE MORPHOLOGY YES; Platelet Count 296 K/mm3 (150-450); RBC Distribution Width CV 13.7 % (11.6-14.6); RBC Distribution Width SD 47.2 fl (35.1-43.9); Red Blood Count 3.65 M/mm3 (4.6-6.2); White Blood Count 20.8 K/mm3 (4.4-11.0)
[2019-10-12 05:54] LABS: Differential Indicated SCAN CRITERIA MET
[2019-10-12 06:01] LABS: Bedside Glucose 341 mg/dL (70-110)
[2019-10-12 06:07] LABS: ALB/GLOB Ratio 1.2 RATIO (0.9-2.4); AST(SGOT) 27 U/L (15-37); Alanine Aminotransfer ALT/SGPT 27 U/L (16-61); Albumin, Serum 3.6 g/dL (3.2-5.0); Alkaline Phosphatase 104 U/L (45-117); Anion Gap 15 (5-15); BUN 35 mg/dL (7-18); BUN/Creat Ratio 21.7 RATIO (10-20); Calcium,Total 7.9 mg/dL (8.5-10.1); Chloride 105 mmol/L (98-107); Creatinine, Serum 1.61 mg/dL (0.70-1.30); EST Glomerular Filtration Rate 50 mL/min (>60); Est Glom Filt Rate - Afr Amer 60 mL/min (>60); Estimated Creatinine Clearance 51.96 ml/min; Globulin 3.1 g/dL (2.2-4.2); Glucose 372 mg/dL (74-106); Potassium 4.5 mmol/L (3.5-5.1); Protein, Total 6.7 g/dL (6.4-8.2); Sodium Level 140 mmol/L (136-145)
--- NOTE | 2019-10-12 07:17 | PN_ITS ---
Patient Problems: Active and Suspected Problems (Last Reviewed 08/29/19 @ 04:57 by Enrique Gaitan MD) Altered mental status (Acute) Subjective: Follow-up on DKA: Patient was seen and examined. No acute events overnight. His gap is closed x1. Patient denied any new complaints. Denies any dizziness or palpitations or fever or chills. ROS is negative Vitals/I&O's: Vital Signs Temp Pulse Resp BP Pulse Ox 98.4 F 88 14 108/61 100 10/12/19 04:00 10/12/19 06:00 10/12/19 06:00 10/12/19 06:00 10/12/19 06:00 Oxygen Delivery Method Room Air Weight: 62.1 kg Body Mass Index (BMI) 17.9 Finger Stick Blood Glucose 331 Intake and Output for Last 24 Hours 10/10/19 10/11/19 10/12/19 23:59 23:59 23:59 Intake Total 3144.52 / 3505.91 1695.63 / 1695.63 Output Total 700 / 1825 1525 / 1525 Balance 2444.52 / 1680.91 170.63 / 170.63 General: Alert, Oriented x3, Cooperative, No apparent distress HEENT: Atraumatic, PERRLA, EOMI, Normocephalic Oral: Moist Mucosa Neck: Supple Lungs: Clear to auscultation, Normal air movement Cardiovascular: Regular rate, Regular Rhythm, Normal S1, Normal S2, No murmurs Abdomen: Bowel Sounds Present, Soft, Non Tender, Non-Distended Extremities: No edema Skin: No rashes Musculoskeletal: No Tenderness to Palpation of Joints or Extremities Lymphatic: No Cervical, Supraclavicular, or Inguinal Adenopathy Neurological: Cranial nerves II-XII grossly intact, Neuro grossly intact Psych/Mental Status: Normal Affect, Appropriate Laboratory Results 10/11/19 12:53: POC Glucose > 500 H* 10/11/19 13:25: WBC 30.9 H*, RBC 3.72 L, Hgb 11.6 L, Hct 36.9 L, MCV 99.2 H, MCH 31.2, MCHC 31.4 L, RDW Std Deviation 50.8 H, RDW Coeff of Omayra 14.1, Plt Count 423, MPV 10.6, Immature Gran % (Auto) 1.400 H, Neut % (Auto) 82.1 H, Lymph % (Auto) 6.7 L, [place] % (Auto) 9.1, Eos % (Auto) 0.4, Baso % (Auto) 0.3, Absolute Neuts (auto) 25.4 H, Absolute Lymphs (auto) 2.07, Nucleated RBC % 0, Differential Comment SCANNED, Diff Path Review May foll, Platelet Estimate ADEQUATE, [place] Cells 1+, Acanthocytes (Spur) RARE 10/11/19 13:25: Sodium 121 L, Potassium 5.9 H, Chloride 78 L, Carbon Dioxide 5.0 L*, Anion Gap 38 H, BUN 44 H, Creatinine 2.02 H, Estim Creat Clear Calc 42.48, Est GFR (MDRD) Af Amer 47 L, Est GFR (MDRD) Non-Af 38 L, BUN/Creatinine Ratio 21.8 H, Glucose 1123 H*, Calcium 8.9, Magnesium 2.6 10/11/19 13:25: Acetone Level LARGE H 10/11/19 13:25: Ethyl Alcohol < 3.0 10/11/19 14:20: Specimen Type ART, Sample Site R Brachial, pH 7.21 L, Bicarbonate Actual 5.3 L, POC Total CO2 6, Base Excess -23 L, O2 Saturation 98, ABG pCO2 13.4 L*, ABG pO2 122 H, Anurag Test NA, O2 Delivery Device Room Air, Blood Gas Notified Whom ED , Blood Gas Notified Time 1416 10/11/19 14:47: POC Glucose > 500 H* 10/11/19 15:00: Sodium 125 L, Potassium 4.7, Chloride 85 L, Carbon Dioxide 7.0 L*, Anion Gap 33 H, BUN 43 H, Creatinine 2.05 H, Estim Creat Clear Calc 41.86, Est GFR (MDRD) Af Amer 46 L, Est GFR (MDRD) Non-Af 38 L, BUN/Creatinine Ratio 21.0 H, Glucose 956 H*, Calcium 8.1 L 10/11/19 15:00: Urine Color Yellow, Urine Clarity Sl. Cloudy, Urine pH 5.0, Ur Specific [place] 1.015, Urine Protein Negative, Urine Glucose (UA) 1000 H, Urine Ketones 150 H, Urine Occult Blood Negative, Urine Nitrite Negative, Urine Bilirubin Negative, Urine Urobilinogen Normal, Ur Leukocyte Esterase Negative, Urine RBC 0 SEEN, Urine WBC 0 SEEN, Ur Squamous Epith Cells 0-5 SEEN, Urine Bacteria 0 SEEN, Urine Mucus 0 SEEN 10/11/19 16:40: Sodium 127 L, Potassium 3.8, Chloride 87 L, Carbon Dioxide 9.0 L*, Anion Gap 31 H, BUN 43 H, Creatinine 1.96 H, Estim Creat Clear Calc 41.24, Est GFR (MDRD) Af Amer 48 L, Est GFR (MDRD) Non-Af 40 L, BUN/Creatinine Ratio 21.9 H, Glucose 833 H*, Calcium 8.0 L 10/11/19 18:05: Glucose 721 H* 10/11/19 19:30: POC Glucose > 500 H* 10/11/19 19:40: Glucose 654 H* 10/11/19 20:49: POC Glucose > 500 H* 10/11/19 20:55: Sodium 133 L, Potassium 4.2, Chloride 97 L, Carbon Dioxide 9.0 L*, Anion Gap 27 H, BUN 43 H, Creatinine 1.77 H, Estim Creat Clear Calc 45.67, Est GFR (MDRD) Af Amer 54 L, Est GFR (MDRD) Non-Af 45 L, BUN/Creatinine Ratio 24.3 H, Glucose 626 H*, Calcium 7.8 L 10/11/19 21:52: POC Glucose > 500 H* 10/11/19 22:45: POC Glucose > 500 H* 10/11/19 22:50: Glucose 589 H* 10/12/19 00:39: POC Glucose 493 H* 10/12/19 00:40: Sodium 137, Potassium 4.1, Chloride 102, Carbon Dioxide 15.0 L, Anion Gap 20 H, BUN 40 H, Creatinine 1.67 H, Estim Creat Clear Calc 48.40, Est GFR (MDRD) Af Amer 58 L, Est GFR (MDRD) Non-Af 48 L, BUN/Creatinine Ratio 24.0 H , Glucose 528 H*, Calcium 7.6 L 10/12/19 02:04: POC Glucose 451 H* 10/12/19 03:05: POC Glucose 382 H 10/12/19 04:07: POC Glucose 350 H 10/12/19 04:53: POC Glucose 366 H 10/12/19 05:30: WBC 20.8 H, RBC 3.65 L, Hgb 11.4 L, Hct 34.3 L, MCV 94.0 D, MCH 31.2, MCHC 33.2, RDW Std Deviation 47.2 H, RDW Coeff of Omayra 13.7, Plt Count 296, MPV 9.7, Immature Gran % (Auto) 0.500, Neut % (Auto) 85.4 H, Lymph % (Auto) 6.0 L, [place] % (Auto) 8.0, Eos % (Auto) 0.0, Baso % (Auto) 0.1, Absolute Neuts (auto) 17.7 H, Absolute Lymphs (auto) 1.25, Nucleated RBC % 0, Differential Comment , Diff Path Review March10/12/19 05:30: Sodium 140, Potassium 4.5, Chloride 105, Carbon Dioxide 20.0 L, Anion Gap 15, BUN 35 H, Creatinine 1.61 H, Estim Creat Clear Calc 51.96, Est GFR (MDRD) Af Amer 60, Est GFR (MDRD) Non-Af 50 L, BUN/Creatinine Ratio 21.7 H, Glucose 372 H, Calcium 7.9 L, Total Bilirubin 0.50, AST 27, ALT 27, Alkaline Phosphatase 104, Total Protein 6.7, Albumin 3.6, Globulin 3.1, Albumin/Globulin Ratio 1.2 10/12/19 05:55: POC Glucose 341 H Current Medications Atorvastatin Calcium (Lipitor) 20 mg PO DAILY [facility] Bupropion HCl (Wellbutrin Xl) 150 mg PO DAILY [facility] Carvedilol (Coreg) 3.125 mg PO BID [facility] Last Admin: 10/11/19 22:35 Dose: 3.125 mg Documented by: Dextrose (D50w Syringe) 0 gm IV X1 PRN; Protocol PRN Reason: HYPOGLYCEMIA Folic Acid (Folic Acid) 1 mg PO DAILY@0800 [facility] Heparin Sodium (Porcine) (Heparin Na) 5,000 unit SC Q12 [facility] Last Admin: 10/11/19 22:36 Dose: 5,000 unit Documented by: Insulin Human Lispro 100 unit/ (Sodium Chloride) 100 mls @ 6.37 mls/hr IV .[id number] [facility]; Protocol Last Titration: 10/12/19 06:50 Dose: 0.03 units/kg/hr, 1.8 mls/hr Documented by: Sodium Chloride () 1,000 mls @ 125 mls/hr IV .Q8H OZZIE Last Infusion: 10/12/19 06:16 Dose: 125 mls/hr Documented by: Potassium Chloride/Sodium Chloride (Kcl 20meq In 0.45% Ns 1000ml) 1,000 mls @ 125 mls/hr IV .Q8H OZZIE Last Infusion: 10/12/19 06:16 Dose: 125 mls/hr Documented by: Insulin Human Lispro 100 unit/ (Sodium Chloride) 100 mls @ 6.37 mls/hr IV .[id number] [facility]IE; Protocol Last Admin: 10/11/19 17:20 Dose: Not Given Documented by: Sodium Chloride () 250 mls @ 15 mls/hr IV .[id number] PRN PRN Reason: Saline Flush Levetiracetam (Keppra Tablet) 1,500 mg PO BID [facility] Last Admin: 10/11/19 22:36 Dose: 1,500 mg Documented by: Lisinopril (Zestril) 2.5 mg PO DAILY [facility] Magnesium Oxide (Mag-Ox 400) 400 mg PO DAILY [facility] Melatonin (Melatonin) 6 mg PO QHS [facility] Last Admin: 10/11/19 22:35 Dose: 6 mg Documented by: Mirtazapine (Remeron) 30 mg PO QHS [facility] Last Admin: 10/11/19 22:36 Dose: 30 mg Documented by: Morphine Sulfate () 4 mg IV Q3H PRN PRN PRN Reason: Pain Score 6-10/10 Nicotine (Nicoderm Cq (Pbkc)) 21 mg TRANSDERM. DAILY [facility] Last Admin: 10/11/19 22:36 Dose: 21 mg Documented by: Ondansetron HCl (Zofran) 4 mg IV Q8H PRN PRN PRN Reason: NAUSEA/VOMITING Sodium Chloride () 10 - 40 ml IV UD PRN PRN Reason: SALINE FLUSH Last Admin: 10/12/19 04:57 Dose: 40 ml Documented by: Thiamine HCl (Vitamin B1) 100 mg PO DAILY [facility] STROKE Vital Signs/Narrative: Vital Signs Temp Pulse Resp BP Pulse Ox 10/12/19 06:00 88 14 108/61 100 10/12/19 05:00 84 18 111/67 100 10/12/19 04:00 98.4 F 85 21 H 99/61 100 Medical Necessity - Tobacco Use Smoking Status: Current every day smoker Tobacco Use: Cigarettes Assessment/Plan All Active Problems (Last Reviewed 08/29/19 @ 04:57 by Enrique Gaitan MD) Altered mental status (Acute) Acute kidney injury (Acute) DKA (diabetic ketoacidoses) (Acute) 1. Acute DKA, secondary to noncompliance, on insulin drip, anion gap is closed Will continue per protocol 2. ELIZABETH, likely prerenal secondary to dehydration, baseline Cr 1.03 Admitted with Cr 2.02, improving, Cr 1.61 Will continue on IVF, repeat BMP in am 3. Leukocytosis, reactive, no signs of sepsis, decreasing, will continue to monitor 4. Metabolic encephalopathy secondary to #1, underlying history of head injury, resolving 5. Chronic alcoholism, on thiamine and folic acid 6. Seizure disorder, on Keppra 7. H/o recent intracranial surgery for subdural hematoma, recently discharged from rehab 8. Hypertension, controlled, continue on carvedilol and lisinopril 9. Nicotine dependence, on replacement 10. DVT PPx - Heparin SC Code Visit Inpatient E&M: 34932 Subs Hosp L2
--- NOTE | 2019-10-12 07:23 | PCM.CON.CC ---
Problem List (1) Altered mental status Status: Acute Qualifiers: Altered mental status type: unspecified Qualified Code(s): R41.82 - Altered mental status, unspecified (2) Anxiety and depression Status: Chronic (3) Tobacco dependence Status: Chronic (4) DKA (diabetic ketoacidoses) Status: Acute Qualifiers: Diabetes mellitus type: type 1 Diabetes mellitus complication detail: without coma Qualified Code(s): E10.10 - Type 1 diabetes mellitus with ketoacidosis without coma (5) Diabetes type 1, uncontrolled Status: Chronic Comment: DKA w/ encephalopathy 03/2019 (6) Alcoholic cardiomyopathy Status: Chronic Reason for Consult Date of Consultation: 10/12/19 Reason for Consultation: DKA History of Present Illness: The patient is a 44 year old M, with past medical history listed below and known to me from previous hospitalizations, who presented to [facility] via EMS on 10/11/2019 secondary to being short of breath, nauseous and change in mental status. Patient was thought to possibly be intoxicated as he does have a history of alcohol abuse. Patient does have a history of being noncompliant with his medications. Patient is not cooperative with questioning at this time indicating I just want to sleep. Medical history as per the medical record. In the ER, patient was noted to be tachycardic at 140 bpm, hyperkalemic at 5.9 and a bicarb of 5 with glucose of 1121. Creatinine was 2.02. This led to an anion gap of 38. Patient had a large acetone in the serum. CT scan of the head was unremarkable. Patient was admitted to the intensive care unit and initiated on insulin drip. Previously, patient had had a fall while admitted to [facility]. This led to a complicated hospital course resulting in a craniotomy following seizures. Patient reportedly was just recently discharged from [facility] and reportedly has not taken insulin since that time. Unable to obtain a full review of systems secondary to patient cooperation. Past Medical History Past Medical History (Chronic Problems): Chronic Problems (Last Reviewed 08/29/19 @ 04:57 by Enrique Gaitan MD) Anxiety and depression (Chronic) Tobacco dependence (Chronic) Diabetes type 1, uncontrolled (Chronic) DKA w/ encephalopathy 03/2019 Alcoholic cardiomyopathy (Chronic) Nicotine dependence (Chronic) Medical History: Medical History (Last Reviewed 10/03/19 @ 04:57 by Enrique Gaitan MD) Diabetes type 1, uncontrolled (Chronic) E10.65 DKA w/ encephalopathy 03/2019 Alcoholic cardiomyopathy (Chronic) I42.6 Nicotine dependence (Chronic) F17.200 Acute renal failure N17.9 Alcohol abuse F10.10 Anxiety F41.9 Dental caries K02.9 Depression F32.9 Diabetic ketoacidosis Onset Date: 03/2019 E11.10 Dilated cardiomyopathy I42.0 Elevated liver enzymes R74.8 H/O sepsis Z86.19 Hyponatremia E87.1 Lactic acidosis E87.2 Left atrial enlargement I51.7 Mycoplasma pneumonia J15.7 NSVT (nonsustained ventricular tachycardia) I47.2 Neuropathy G62.9 Prolonged QT interval R94.31 Seizure disorder G40.909 Steatosis of liver K76.0 Thrombocytopenia D69.6 ELIZABETH (acute kidney injury) N17.9 Metabolic encephalopathy Onset Date: 03/2019 G93.41 Diabetes type 1, controlled E10.9 dx : 08/2001 last exacerbation : dka : 05/13 hypoglycemic episode : never er visit : 05/13 Allergies zinc Allergy (Intermediate, Verified 10/11/19 12:42) Hives Home Medications: Ambulatory Orders Medication Instructions Recorded levetiracetam 500 mg tablet 1,500 mg PO BID 01/18/18 mirtazapine 15 mg tablet 30 mg PO QHS 01/18/18 Folic Acid 1 tab PO DAILY 30 Days #30 tab 04/16/19 Atorvastatin Calcium 20 mg PO DAILY 04/22/19 Lisinopril [Zestril] 2.5 mg PO QDAY 04/24/19 Carvedilol 3.125 mg PO BID 05/13/19 Bupropion HCl [Bupropion Xl] 150 mg PO DAILY 09/17/19 Melatonin 6 mg PO QHS 09/17/19 Thiamine HCl [Vitamin B-1] 100 mg PO DAILY 09/17/19 Magnesium Oxide 400 mg PO DAILY 10/11/19 Oxycodone [Oxyir] 5 mg PO TID PRN PRN 10/11/19 Surgical History: Surgical History (Last Reviewed 08/29/19 @ 04:57 by Enrique Gaitan MD) History of left heart catheterization Onset Date: 04/18/16 Z98.890 Hx of tonsillectomy Z98.890, Z90.89 Surgical History: noncontributory Psychiatric History: No pertinent psych hx, Anxiety, Depression Lives: Alone Smoking Status: Current every day smoker Tobacco Use: Cigarettes Alcohol: Heavy Drugs: - - Unknown - *Family History Maternal Family History: Family History (Last Reviewed 08/29/19 @ 04:58 by Enrique Gaitan MD) Mother Arthritis Father Diabetes Grandfather Diabetes Grandmother Diabetes History Items: No pertinent history Paternal Family History: Family History (Last Reviewed 08/29/19 @ 04:58 by Enrique Gaitan MD) Mother Arthritis Father Diabetes Grandfather Diabetes Grandmother Diabetes History Items: No pertinent history Review of Systems Unable to obtain accurate/complete ROS d/t: Patient cooperation Patient Problems: Active and Suspected Problems (Last Reviewed 08/29/19 @ 04:57 by Enrique Gaitan MD) Altered mental status (Acute) - Physical Exam Vitals/I&O's: Vital Signs Temp Pulse Resp BP Pulse Ox 36.9 C 88 14 108/61 100 10/12/19 04:00 10/12/19 06:00 10/12/19 06:00 10/12/19 06:00 10/12/19 06:00 Oxygen Delivery Method Room Air Weight: 62.1 kg Body Mass Index (BMI) 17.9 Finger Stick Blood Glucose 331 Intake and Output for Last 24 Hours 10/10/19 10/11/19 10/12/19 23:59 23:59 23:59 Intake Total 3144.52 / 3505.91 1695.63 / 1695.63 Output Total 700 / 1825 1525 / 1525 Balance 2444.52 / 1680.91 170.63 / 170.63 General: Alert, Oriented x3, No apparent distress, Non-Cooperative, - - No conversational dyspnea. HEENT: PERRLA, EOMI, Normocephalic, - - No scleral icterus or injection noted Oral: Moist Mucosa, No Gingival or Mucosal Lesions/ Ulcerations Neck: Supple, No JVD, No Nodes, Trachea Midline Lungs: Clear to auscultation, Normal air movement, No rhonchi, No wheeze, No rales Cardiovascular: Regular rate, Regular Rhythm, Normal S1, Normal S2, No murmurs, No rub noted, No Gallop Abdomen: Bowel Sounds Present, Soft, Non Tender, Non-Distended Extremities: No clubbing, No cyanosis, No edema, Capillary Refill Less than 3 Seconds Skin: No rashes, No breakdown Musculoskeletal: No Tenderness to Palpation of Joints or Extremities Lymphatic: No Cervical, Supraclavicular, or Inguinal Adenopathy Neurological: Cranial nerves II-XII grossly intact, Neuro grossly intact Psych/Mental Status: Flat Affect Laboratory Results 10/11/19 12:53: POC Glucose > 500 H* 10/11/19 13:25: WBC 30.9 H*, RBC 3.72 L, Hgb 11.6 L, Hct 36.9 L, MCV 99.2 H, MCH 31.2, MCHC 31.4 L, RDW Std Deviation 50.8 H, RDW Coeff of Omayra 14.1, Plt Count 423, MPV 10.6, Immature Gran % (Auto) 1.400 H, Neut % (Auto) 82.1 H, Lymph % (Auto) 6.7 L, [place] % (Auto) 9.1, Eos % (Auto) 0.4, Baso % (Auto) 0.3, Absolute Neuts (auto) 25.4 H, Absolute Lymphs (auto) 2.07, Nucleated RBC % 0, Differential Comment SCANNED, Diff Path Review May foll, Platelet Estimate ADEQUATE, Andrews Cells 1+, Acanthocytes (Spur) RARE 10/11/19 13:25: Sodium 121 L, Potassium 5.9 H, Chloride 78 L, Carbon Dioxide 5.0 L*, Anion Gap 38 H, BUN 44 H, Creatinine 2.02 H, Estim Creat Clear Calc 42.48, Est GFR (MDRD) Af Amer 47 L, Est GFR (MDRD) Non-Af 38 L, BUN/Creatinine Ratio 21.8 H, Glucose 1123 H*, Calcium 8.9, Magnesium 2.6 10/11/19 13:25: Acetone Level LARGE H 10/11/19 13:25: Ethyl Alcohol < 3.0 10/11/19 14:20: Specimen Type ART, Sample Site R Brachial, pH 7.21 L, Bicarbonate Actual 5.3 L, POC Total CO2 6, Base Excess -23 L, O2 Saturation 98, ABG pCO2 13.4 L*, ABG pO2 122 H, Anurag Test NA, O2 Delivery Device Room Air, Blood Gas Notified Whom ED , Blood Gas Notified Time 1416 10/11/19 14:47: POC Glucose > 500 H* 10/11/19 15:00: Sodium 125 L, Potassium 4.7, Chloride 85 L, Carbon Dioxide 7.0 L*, Anion Gap 33 H, BUN 43 H, Creatinine 2.05 H, Estim Creat Clear Calc 41.86, Est GFR (MDRD) Af Amer 46 L, Est GFR (MDRD) Non-Af 38 L, BUN/Creatinine Ratio 21.0 H, Glucose 956 H*, Calcium 8.1 L 10/11/19 15:00: Urine Color Yellow, Urine Clarity Sl. Cloudy, Urine pH 5.0, Ur Specific [place] 1.015, Urine Protein Negative, Urine Glucose (UA) 1000 H, Urine Ketones 150 H, Urine Occult Blood Negative, Urine Nitrite Negative, Urine Bilirubin Negative, Urine Urobilinogen Normal, Ur Leukocyte Esterase Negative, Urine RBC 0 SEEN, Urine WBC 0 SEEN, Ur Squamous Epith Cells 0-5 SEEN, Urine Bacteria 0 SEEN, Urine Mucus 0 SEEN 10/11/19 16:40: Sodium 127 L, Potassium 3.8, Chloride 87 L, Carbon Dioxide 9.0 L*, Anion Gap 31 H, BUN 43 H, Creatinine 1.96 H, Estim Creat Clear Calc 41.24, Est GFR (MDRD) Af Amer 48 L, Est GFR (MDRD) Non-Af 40 L, BUN/Creatinine Ratio 21.9 H, Glucose 833 H*, Calcium 8.0 L 10/11/19 18:05: Glucose 721 H* 10/11/19 19:30: POC Glucose > 500 H* 10/11/19 19:40: Glucose 654 H* 10/11/19 20:49: POC Glucose > 500 H* 10/11/19 20:55: Sodium 133 L, Potassium 4.2, Chloride 97 L, Carbon Dioxide 9.0 L*, Anion Gap 27 H, BUN 43 H, Creatinine 1.77 H, Estim Creat Clear Calc 45.67, Est GFR (MDRD) Af Amer 54 L, Est GFR (MDRD) Non-Af 45 L, BUN/Creatinine Ratio 24.3 H, Glucose 626 H*, Calcium 7.8 L 10/11/19 21:52: POC Glucose > 500 H* 10/11/19 22:45: POC Glucose > 500 H* 10/11/19 22:50: Glucose 589 H* 10/12/19 00:39: POC Glucose 493 H* 10/12/19 00:40: Sodium 137, Potassium 4.1, Chloride 102, Carbon Dioxide 15.0 L, Anion Gap 20 H, BUN 40 H, Creatinine 1.67 H, Estim Creat Clear Calc 48.40, Est GFR (MDRD) Af Amer 58 L, Est GFR (MDRD) Non-Af 48 L, BUN/Creatinine Ratio 24.0 H, Glucose 528 H*, Calcium 7.6 L 10/12/19 02:04: POC Glucose 451 H* 10/12/19 03:05: POC Glucose 382 H 10/12/19 04:07: POC Glucose 350 H 10/12/19 04:53: POC Glucose 366 H 10/12/19 05:30: WBC 20.8 H, RBC 3.65 L, Hgb 11.4 L, Hct 34.3 L, MCV 94.0 D, MCH 31.2, MCHC 33.2, RDW Std Deviation 47.2 H, RDW Coeff of Omayra 13.7, Plt Count 296, MPV 9.7, Immature Gran % (Auto) 0.500, Neut % (Auto) 85.4 H, Lymph % (Auto) 6.0 L, [place] % (Auto) 8.0, Eos % (Auto) 0.0, Baso % (Auto) 0.1, Absolute Neuts (auto) 17.7 H, Absolute Lymphs (auto) 1.25, Nucleated RBC % 0, Differential Comment , Diff Path Review March10/12/19 05:30: Sodium 140, Potassium 4.5, Chloride 105, Carbon Dioxide 20.0 L, Anion Gap 15, BUN 35 H, Creatinine 1.61 H, Estim Creat Clear Calc 51.96, Est GFR (MDRD) Af Amer 60, Est GFR (MDRD) Non-Af 50 L, BUN/Creatinine Ratio 21.7 H, Glucose 372 H, Calcium 7.9 L, Total Bilirubin 0.50, AST 27, ALT 27, Alkaline Phosphatase 104, Total Protein 6.7, Albumin 3.6, Globulin 3.1, Albumin/Globulin Ratio 1.2 10/12/19 05:55: POC Glucose 341 H Clinical Impression(s) from Imaging Studies Brain CT 10/11/19 13:26 IMPRESSION: Residual small acute subdural hematoma overlying the right frontoparietal lobes. No significant mass effect is seen at this time. Electronically Signed: John Tillman, at 14:57 EST , Service support , Current Medications Atorvastatin Calcium (Lipitor) 20 mg PO DAILY [facility] Bupropion HCl (Wellbutrin Xl) 150 mg PO DAILY [facility] Carvedilol (Coreg) 3.125 mg PO BID [facility] Last Admin: 10/11/19 22:35 Dose: 3.125 mg Documented by: Dextrose (D50w Syringe) 0 gm IV X1 PRN; Protocol PRN Reason: HYPOGLYCEMIA Folic Acid (Folic Acid) 1 mg PO DAILY@0800 [facility] Heparin Sodium (Porcine) (Heparin Na) 5,000 unit SC Q12 [facility] Last Admin: 10/11/19 22:36 Dose: 5,000 unit Documented by: Insulin Human Lispro 100 unit/ (Sodium Chloride) 100 mls @ 6.37 mls/hr IV .[id number] [facility]; Protocol Last Titration: 10/12/19 06:50 Dose: 0.03 units/kg/hr, 1.8 mls/hr Documented by: Sodium Chloride () 1,000 mls @ 125 mls/hr IV .Q8H [facility] Last Infusion: 10/12/19 06:16 Dose: 125 mls/hr Documented by: Potassium Chloride/Sodium Chloride (Kcl 20meq In 0.45% Ns 1000ml) 1,000 mls @ 125 mls/hr IV .Q8H [facility] Last Infusion: 10/12/19 06:16 Dose: 125 mls/hr Documented by: Insulin Human Lispro 100 unit/ (Sodium Chloride) 100 mls @ 6.37 mls/hr IV .[id number] [facility]; Protocol Last Admin: 10/11/19 17:20 Dose: Not Given Documented by: Sodium Chloride () 250 mls @ 15 mls/hr IV .[id number] PRN PRN Reason: Saline Flush Levetiracetam (Keppra Tablet) 1,500 mg PO BID [facility] Last Admin: 10/11/19 22:36 Dose: 1,500 mg Documented by: Lisinopril (Zestril) 2.5 mg PO DAILY [facility] Magnesium Oxide (Mag-Ox 400) 400 mg PO DAILY [facility] Melatonin (Melatonin) 6 mg PO QHS [facility] Last Admin: 10/11/19 22:35 Dose: 6 mg Documented by: Mirtazapine (Remeron) 30 mg PO QHS [facility] Last Admin: 10/11/19 22:36 Dose: 30 mg Documented by: Morphine Sulfate () 4 mg IV Q3H PRN PRN PRN Reason: Pain Score 6-10/10 Nicotine (Nicoderm Cq (Pbkc)) 21 mg TRANSDERM. DAILY [facility] Last Admin: 10/11/19 22:36 Dose: 21 mg Documented by: Ondansetron HCl (Zofran) 4 mg IV Q8H PRN PRN PRN Reason: NAUSEA/VOMITING Sodium Chloride () 10 - 40 ml IV UD PRN PRN Reason: SALINE FLUSH Last Admin: 10/12/19 04:57 Dose: 40 ml Documented by: Thiamine HCl (Vitamin B1) 100 mg PO DAILY [facility] Assessment/Plan Active and Suspected Problems (Last Reviewed 08/29/19 @ 04:57 by Enrique Gaitan MD) Altered mental status (Acute) RECOMMENDATIONS: 1. Continue DKA protocol 2. Transition to subcutaneous insulin if next BMP shows gap closed 3. Aggressive fluid resuscitation 4. Fall precautions, continue Keppra IMPRESSIONS: 1. Recurrent DKA secondary to noncompliance Patient admits to noncompliance with insulin therapy. Patient has had significant complications associated with noncompliance in the past. Patient appears to be responding to protocol appropriately. No complicating factors have been noted. We will transition to subcutaneous insulin per protocol once gap is closed x2 BMPs. 2. Acute kidney injury Likely secondary to prerenal etiology with dehydration. Patient has received aggressive fluid resuscitation is doing much better at this time. No indication for renal replacement therapy at this time. Electrolytes are operated and do not require repletion. 3. Metabolic encephalopathy/chronic alcoholism/dilated cardiomyopathy/recent subdural hematoma with resultant seizure disorder Complicates care, management, recovery and prognosis. Patient is alert, but non-cooperative at this time. Continue to monitor for signs or symptoms of withdrawal or seizure. Code Visit Inpatient E&M: 08151 Init Hosp L2
--- NOTE | 2019-10-12 08:16 | NURSING ---
Pt not participating in CAM assessment at this time
[2019-10-12] MEDS: Magnesium Oxide 400 MG Tablet PO (09:06)
[2019-10-12] MEDS: buPROPion (XL) 150 MG TABLET.XL PO (09:06)
[2019-10-12] MEDS: Folic Acid 1 MG Tablet PO (09:06)
[2019-10-12] MEDS: levETIRAcetam 500 MG Tablet 1500 MG PO ×2 (09:06→22:09)
[2019-10-12] MEDS: Atorvastatin Calcium 20 MG Tablet PO (09:06)
[2019-10-12] MEDS: Lisinopril 2.5 MG Tablet PO (09:06)
[2019-10-12] MEDS: Thiamine Hydrochloride 100 MG Tablet PO (09:06)
[2019-10-12] MEDS: Heparin Injection (Vial) 5,000 UNIT/ML VIAL 5000 UNIT SC ×2 (09:06→22:08)
[2019-10-12] MEDS: Carvedilol 3.125 MG TABLET PO ×2 (09:06→22:08)
[2019-10-12 09:11] LABS: Bedside Glucose 303 mg/dL (70-110)
[2019-10-12 09:11] LABS: Bedside Glucose 331 mg/dL (70-110)
[2019-10-12 09:15] LABS: Bedside Glucose 272 mg/dL (70-110)
[2019-10-12 09:50] LABS: Anion Gap 9 (5-15); BUN 30 mg/dL (7-18); BUN/Creat Ratio 22.9 RATIO (10-20); Calcium,Total 7.9 mg/dL (8.5-10.1); Chloride 110 mmol/L (98-107); Creatinine, Serum 1.31 mg/dL (0.70-1.30); EST Glomerular Filtration Rate 63 mL/min (>60); Est Glom Filt Rate - Afr Amer 77 mL/min (>60); Estimated Creatinine Clearance 63.86 ml/min; Glucose 300 mg/dL (74-106); Potassium 4.2 mmol/L (3.5-5.1); Sodium Level 141 mmol/L (136-145)
[2019-10-12 11:01] LABS: Bedside Glucose 261 mg/dL (70-110)
[2019-10-12] MEDS: Insulin Lispro 100 UNIT/ML INSULN.PEN SC ×2 (15:44→22:09)
[2019-10-12 15:51] LABS: Bedside Glucose 343 mg/dL (70-110)
[2019-10-12] MEDS: Insulin Lispro 100 UNIT/ML INSULN.PEN 12 UNIT SC (17:20)
[2019-10-12] MEDS: traMADol 50 MG Tablet 100 MG PO (18:33)
[2019-10-12] MEDS: MELATONIN 3 MG TABLET 6 MG PO (22:10)
[2019-10-12] MEDS: Mirtazapine 15 MG Tablet 30 MG PO (22:10)
[2019-10-13] VITALS (17 sets, daily range): BP systolic 93–144; BP diastolic 56–92; PULSE 62–79; RESP 14–18; TEMP 36.6–37.2; O2SAT 97–100
[2019-10-13 00:56] LABS: Bedside Glucose 367 mg/dL (70-110)
[2019-10-13 06:01] LABS: Absolute Neutrophil Count 7.3 X10^3/uL (2.0-7.7); Basophil# 0.02 X10^3/uL; Basophil% 0.2 % (0-1); Eosinophil# 0.07 X10^3/uL; Eosinophils% 0.6 % (0-5); Hematocrit 30.4 % (40-54); Hemoglobin 10.1 g/dL (13.0-16.5); Lymphocyte % 24.9 % (19-41); Mean Corp Hgb Conc 33.2 g/dL (32-36); Mean Corpuscular Hgb 31.6 pg (27.0-32.0); Mean Platelet Vol. 9.3 fl (6.2-12.0); Monocyte% 6.5 % (0-10); NRBC Flagged by Analyzer 0 % (0-5); Neutrophil # 7.31 X10^3/uL (2.7-7.7); Neutrophil % 67.4 % (47-70); Platelet Count 222 K/mm3 (150-450); RBC Distribution Width CV 13.7 % (11.6-14.6); RBC Distribution Width SD 47.7 fl (35.1-43.9); White Blood Count 10.8 K/mm3 (4.4-11.0)
[2019-10-13 06:22] LABS: Anion Gap 8 (5-15); BUN 12 mg/dL (7-18); BUN/Creat Ratio 13.6 RATIO (10-20); Calcium,Total 8.4 mg/dL (8.5-10.1); Chloride 107 mmol/L (98-107); Creatinine, Serum 0.88 mg/dL (0.70-1.30); EST Glomerular Filtration Rate 100 mL/min (>60); Est Glom Filt Rate - Afr Amer 121 mL/min (>60); Estimated Creatinine Clearance 98.59 ml/min; Glucose 134 mg/dL (74-106); Potassium 3.4 mmol/L (3.5-5.1); Sodium Level 143 mmol/L (136-145)
--- NOTE | 2019-10-13 07:56 | PCM.PN.HOSP ---
Patient Problems: Active and Suspected Problems (Last Reviewed 08/29/19 @ 04:57 by Enrique Gaitan MD) Altered mental status (Acute) Subjective: Follow-up on DKA: Patient was seen and examined. No new complains. No acute events overnight. ROS is negative Objective: Physical exam: General: Alert, Oriented x3, Cooperative, No apparent distress HEENT: Atraumatic, PERRLA, EOMI, Normocephalic, scar over right hemicranium from recent surgery Oral: Moist Mucosa Neck: Supple Lungs: Clear to auscultation, Normal air movement Cardiovascular: Regular rate, Regular Rhythm, Normal S1, Normal S2, No murmurs Abdomen: Bowel Sounds Present, Soft, Non Tender, Non-Distended Extremities: No edema Skin: No rashes Musculoskeletal: No Tenderness to Palpation of Joints or Extremities Lymphatic: No Cervical, Supraclavicular, or Inguinal Adenopathy Neurological: Cranial nerves II-XII grossly intact, Neuro grossly intact Psych/Mental Status: Normal Affect, Appropriate Vitals/I&O's: Vital Signs Temp Pulse Resp BP Pulse Ox 98.0 F 63 14 96/56 L 99 10/13/19 00:00 10/13/19 07:00 10/13/19 07:00 10/13/19 07:00 10/13/19 07:00 Oxygen Delivery Method Room Air Weight: 64.4 kg Body Mass Index (BMI) 17.9 Finger Stick Blood Glucose 261 Intake and Output for Last 24 Hours 10/11/19 10/12/19 10/13/19 23:59 23:59 23:59 Intake Total 3144.52 / 3505.91 4065.05 / 4065.05 600 / 600 Output Total 700 / 1825 2225 / 2625 2100 / 2100 Balance 2444.52 / 1680.91 1840.05 / 1440.05 -1500 / -1500 Laboratory Results 10/12/19 06:49: POC Glucose 331 H 10/12/19 08:05: POC Glucose 303 H 10/12/19 09:03: POC Glucose 272 H 10/12/19 09:15: Sodium 141, Potassium 4.2, Chloride 110 H, Carbon Dioxide 22.0, Anion Gap 9, BUN 30 H, Creatinine 1.31 H, Estim Creat Clear Calc 63.86, Est GFR (MDRD) Af Amer 77, Est GFR (MDRD) Non-Af 63, BUN/Creatinine Ratio 22.9 H, Glucose 300 H, Calcium 7.9 L 10/12/19 10:47: POC Glucose 261 H 10/12/19 15:41: POC Glucose 343 H 10/12/19 22:07: POC Glucose 367 H 10/13/19 05:55: WBC 10.8, RBC 3.20 L, Hgb 10.1 L, Hct 30.4 L, MCV 95.0 H, MCH 31.6, MCHC 33.2, RDW Std Deviation 47.7 H, RDW Coeff of Omayra 13.7, Plt Count 222, MPV 9.3, Immature Gran % (Auto) 0.400, Neut % (Auto) 67.4, Lymph % (Auto) 24.9, [place] % (Auto) 6.5, Eos % (Auto) 0.6, Baso % (Auto) 0.2, Absolute Neuts (auto) 7.3, Absolute Lymphs (auto) 2.70, Nucleated RBC % 0 10/13/19 05:55: Sodium 143, Potassium 3.4 L, Chloride 107, Carbon Dioxide 28.0, Anion Gap 8, BUN 12, Creatinine 0.88, Estim Creat Clear Calc 98.59, Est GFR (MDRD) Af Amer 121, Est GFR (MDRD) Non-Af 100, BUN/Creatinine Ratio 13.6, Glucose 134 H, Calcium 8.4 L Current Medications Atorvastatin Calcium (Lipitor) 20 mg PO DAILY [facility] Last Admin: 10/12/19 09:06 Dose: 20 mg Documented by: Bupropion HCl (Wellbutrin Xl) 150 mg PO DAILY [facility] Last Admin: 10/12/19 09:06 Dose: 150 mg Documented by: Carvedilol (Coreg) 3.125 mg PO BID [facility] Last Admin: 10/12/19 22:08 Dose: 3.125 mg Documented by: Dextrose (D50w Syringe) 0 gm IV X1 PRN; Protocol PRN Reason: HYPOGLYCEMIA Dextrose (D50w Syringe) 0 gm IV X1 PRN; Protocol PRN Reason: Hypoglycemia Folic Acid (Folic Acid) 1 mg PO DAILY@0800 [facility] Last Admin: 10/12/19 09:06 Dose: 1 mg Documented by: Glucagon () 1 mg IM .X1 PRN PRN Reason: Hypoglycemia Heparin Sodium (Porcine) (Heparin Na) 5,000 unit SC Q12 [facility] Last Admin: 10/12/19 22:08 Dose: 5,000 unit Documented by: Sodium Chloride () 250 mls @ 15 mls/hr IV .[id number] PRN PRN Reason: Saline Flush Insulin Glargine (Lantus (Bkc)) 25 units SC BID [facility] Last Admin: 10/12/19 22:09 Dose: 25 units Documented by: Insulin Human Lispro (Humalog Kwikpen (Bkc)) 0 unit SC ACHS [facility]; Protocol Last Admin: 10/12/19 22:09 Dose: 12 units Documented by: Insulin Human Lispro (Humalog Kwikpen (Bkc)) 12 unit SC TIDAC [facility] Last Admin: 10/12/19 17:20 Dose: 12 units Documented by: Levetiracetam (Keppra Tablet) 1,500 mg PO BID [facility] Last Admin: 10/12/19 22:09 Dose: 1,500 mg Documented by: Lisinopril (Zestril) 2.5 mg PO DAILY [facility] Last Admin: 10/12/19 09:06 Dose: 2.5 mg Documented by: Magnesium Oxide (Mag-Ox 400) 400 mg PO DAILY [facility] Last Admin: 10/12/19 09:06 Dose: 400 mg Documented by: Melatonin (Melatonin) 6 mg PO QHS [facility] Last Admin: 10/12/19 22:10 Dose: 6 mg Documented by: Mirtazapine (Remeron) 30 mg PO QHS [facility] Last Admin: 10/12/19 22:10 Dose: 30 mg Documented by: Nicotine (Nicoderm Cq (Pbkc)) 21 mg TRANSDERM. DAILY [facility] Last Admin: 10/12/19 10:49 Dose: 21 mg Documented by: Ondansetron HCl (Zofran) 4 mg IV Q8H PRN PRN PRN Reason: NAUSEA/VOMITING Sodium Chloride () 10 - 40 ml IV UD PRN PRN Reason: SALINE FLUSH Last Admin: 10/12/19 04:57 Dose: 40 ml Documented by: Thiamine HCl (Vitamin B1) 100 mg PO DAILY [facility] Last Admin: 10/12/19 09:06 Dose: 100 mg Documented by: Tramadol HCl (Ultram) 100 mg PO Q6H PRN PRN PRN Reason: Headache Last Admin: 10/12/19 18:33 Dose: 100 mg Documented by: STROKE Vital Signs/Narrative: Vital Signs Pulse Resp BP Pulse Ox 10/13/19 07:00 63 14 96/56 L 99 10/13/19 06:00 73 15 96/58 L 100 10/13/19 05:00 62 18 100/63 98 10/13/19 04:00 62 15 98/64 99 Medical Necessity - Tobacco Use Smoking Status: Current every day smoker Tobacco Use: Cigarettes Assessment/Plan All Active Problems (Last Reviewed 08/29/19 @ 04:57 by Enrique Gaitan MD) Altered mental status (Acute) Acute kidney injury (Acute) DKA (diabetic ketoacidoses) (Acute) 1. Acute DKA, secondary to noncompliance, resolved Continue on home insulin regimen, blood glucose checks 2. ELIZABETH, likely prerenal secondary to dehydration, resolved Baseline Cr 0.84-1.03, admitted with Cr 2.02, creatinine is back to his baseline. 3. Leukocytosis, reactive, no signs of sepsis, decreasing, 4. Metabolic encephalopathy secondary to #1, underlying history of head injury, resolving 5. Chronic alcoholism, on thiamine and folic acid 6. Seizure disorder, on Keppra 7. H/o recent intracranial surgery for subdural hematoma, recently discharged from rehab 8. Hypertension, controlled, continue on carvedilol and lisinopril 9. Nicotine dependence, on replacement 10. DVT PPx - Heparin SC 11. Disposition: Will wait on PT/OT to determine disposition. Code Visit Inpatient E&M: 17826 Subs Hosp L2
[2019-10-13 09:05] LABS: Bedside Glucose 88 mg/dL (70-110)
[2019-10-13] MEDS: levETIRAcetam 500 MG Tablet 1500 MG PO ×2 (09:25→21:36)
[2019-10-13] MEDS: Magnesium Oxide 400 MG Tablet PO (09:26)
[2019-10-13] MEDS: Lisinopril 2.5 MG Tablet PO (09:26)
[2019-10-13] MEDS: Folic Acid 1 MG Tablet PO (09:26)
[2019-10-13] MEDS: Heparin Injection (Vial) 5,000 UNIT/ML VIAL 5000 UNIT SC ×2 (09:26→21:36)
[2019-10-13] MEDS: buPROPion (XL) 150 MG TABLET.XL PO (09:26)
[2019-10-13] MEDS: Carvedilol 3.125 MG TABLET PO ×2 (09:27→21:36)
[2019-10-13] MEDS: Atorvastatin Calcium 20 MG Tablet PO (09:28)
[2019-10-13 12:11] LABS: Bedside Glucose 248 mg/dL (70-110)
[2019-10-13] MEDS: Thiamine Hydrochloride 100 MG Tablet PO (12:12)
[2019-10-13] MEDS: Insulin Lispro 100 UNIT/ML INSULN.PEN SC ×3 (12:12→21:37)
[2019-10-13] MEDS: traMADol 50 MG Tablet 100 MG PO ×2 (14:15→19:57)
[2019-10-13 16:41] LABS: Bedside Glucose 199 mg/dL (70-110)
[2019-10-13] MEDS: Mirtazapine 15 MG Tablet 30 MG PO (21:36)
[2019-10-13] MEDS: MELATONIN 3 MG TABLET 6 MG PO (21:37)
[2019-10-13 21:55] LABS: Bedside Glucose 232 mg/dL (70-110)
[2019-10-14] VITALS (9 sets, daily range): BP systolic 118–148; BP diastolic 68–90; PULSE 56–88; RESP 14–18; TEMP 36.4–37.1; O2SAT 97–99
[2019-10-14 06:47] LABS: Anion Gap 8 (5-15); BUN 8 mg/dL (7-18); BUN/Creat Ratio 13.5 RATIO (10-20); Calcium,Total 8.6 mg/dL (8.5-10.1); Chloride 107 mmol/L (98-107); Creatinine, Serum 0.59 mg/dL (0.70-1.30); EST Glomerular Filtration Rate 159 mL/min (>60); Est Glom Filt Rate - Afr Amer 192 mL/min (>60); Estimated Creatinine Clearance 147.97 ml/min; Glucose 38 mg/dL (74-106); Potassium 3.8 mmol/L (3.5-5.1); Sodium Level 140 mmol/L (136-145)
--- NOTE | 2019-10-14 06:50 | NURSING ---
THIS RN TOLD BLOOD SUGAR WAS 38 FROM LAB, WENT TO ROOM PATIENT WOKE UP EASILY ASYMPTOMATIC WITH LOW BLOOD SUGAR, GIVEN OJ. AT THIS TIME
--- NOTE | 2019-10-14 07:02 | NURSING ---
SUGAR 50 GIVEN CRACKERS AND MILK AT THIS TIME.
[2019-10-14 07:05] LABS: Bedside Glucose 50 mg/dL (70-110)
--- NOTE | 2019-10-14 07:20 | PN_ITS ---
Patient Problems: Active and Suspected Problems (Last Reviewed 08/29/19 @ 04:57 by Enrique Gaitan MD) Altered mental status (Acute) Subjective: The patient was seen and examined at the bedside this morning. Events from the last 24 hours have been reviewed. The patient is currently afebrile, hemodynamically stable and maintaining appropriate oxygen saturations on room air. Blood glucose was low this morning on chemistry profile at 38. Objective: The patient's most recent lab work, culture data and imaging studies have all been personally reviewed. - Physical Exam Vitals/I&O's: Vital Signs Temp Pulse Resp BP Pulse Ox 97.6 F L 67 16 148/90 H 99 10/14/19 03:30 10/14/19 03:30 10/14/19 03:30 10/14/19 03:30 10/14/19 03:30 Oxygen Delivery Method Room Air Weight: 142 lb 13.753 oz Body Mass Index (BMI) 17.9 Finger Stick Blood Glucose 261 Intake and Output for Last 24 Hours 10/12/19 10/13/19 10/14/19 23:59 23:59 23:59 Intake Total 4065.05 / 4065.05 1989 300 / 300 Output Total 2225 / 2625 3935 / 3935 1375 / 1375 Balance 1840.05 / 1440.05 -1945 / -1945 -1075 / -1075 General: Alert, Cooperative, No apparent distress HEENT: PERRLA, EOMI Oral: No Gingival or Mucosal Lesions/ Ulcerations Neck: Supple, No Nodes, Trachea Midline Lungs: No rhonchi, No wheeze, No rales Cardiovascular: Regular rate, Regular Rhythm, Normal S1, Normal S2, No murmurs Abdomen: Bowel Sounds Present, Soft, Non Tender Extremities: No clubbing, No cyanosis, No edema Skin: No breakdown Musculoskeletal: No Tenderness to Palpation of Joints or Extremities Lymphatic: No Cervical, Supraclavicular, or Inguinal Adenopathy Neurological: Neuro grossly intact Psych/Mental Status: Flat Affect Labs (Last 48 Hours) 10/12/19 10/12/19 10/12/19 06:49 08:05 09:03 WBC RBC Hgb Hct MCV MCH MCHC RDW Std Deviation RDW Coeff of Omayra Plt Count MPV Immature Gran % (Auto) Neut % (Auto) Lymph % (Auto) Wilkes % (Auto) Eos % (Auto) Baso % (Auto) Absolute Neuts (auto) Absolute Lymphs (auto) Nucleated RBC % Sodium Potassium Chloride Carbon Dioxide Anion Gap BUN Creatinine Estim Creat Clear Calc Est GFR (MDRD) Af Amer Est GFR (MDRD) Non-Af BUN/Creatinine Ratio Glucose Calcium POC Glucose 331 H 303 H 272 H 10/12/19 10/12/19 10/12/19 09:15 10:47 15:41 WBC RBC Hgb Hct MCV MCH MCHC RDW Std Deviation RDW Coeff of Omayra Plt Count MPV Immature Gran % (Auto) Neut % (Auto) Lymph % (Auto) Wilkes % (Auto) Eos % (Auto) Baso % (Auto) Absolute Neuts (auto) Absolute Lymphs (auto) Nucleated RBC % Sodium 141 Potassium 4.2 Chloride 110 H Carbon Dioxide 22.0 Anion Gap 9 BUN 30 H Creatinine 1.31 H Estim Creat Clear Calc 63.86 Est GFR (MDRD) Af Amer 77 Est GFR (MDRD) Non-Af 63 BUN/Creatinine Ratio 22.9 H Glucose 300 H Calcium 7.9 L POC Glucose 261 H 343 H 10/12/19 10/13/19 10/13/19 22:07 05:55 05:55 WBC 10.8 RBC 3.20 L Hgb 10.1 L Hct 30.4 L MCV 95.0 H MCH 31.6 MCHC 33.2 RDW Std Deviation 47.7 H RDW Coeff of Omayra 13.7 Plt Count 222 MPV 9.3 Immature Gran % (Auto) 0.400 Neut % (Auto) 67.4 Lymph % (Auto) 24.9 Wilkes % (Auto) 6.5 Eos % (Auto) 0.6 Baso % (Auto) 0.2 Absolute Neuts (auto) 7.3 Absolute Lymphs (auto) 2.70 Nucleated RBC % 0 Sodium 143 Potassium 3.4 L Chloride 107 Carbon Dioxide 28.0 Anion Gap 8 BUN 12 Creatinine 0.88 Estim Creat Clear Calc 98.59 Est GFR (MDRD) Af Amer 121 Est GFR (MDRD) Non-Af 100 BUN/Creatinine Ratio 13.6 Glucose 134 H Calcium 8.4 L POC Glucose 367 H 10/13/19 10/13/19 10/13/19 09:01 12:08 16:32 WBC RBC Hgb Hct MCV MCH MCHC RDW Std Deviation RDW Coeff of Omayra Plt Count MPV Immature Gran % (Auto) Neut % (Auto) Lymph % (Auto) Wilkes % (Auto) Eos % (Auto) Baso % (Auto) Absolute Neuts (auto) Absolute Lymphs (auto) Nucleated RBC % Sodium Potassium Chloride Carbon Dioxide Anion Gap BUN Creatinine Estim Creat Clear Calc Est GFR (MDRD) Af Amer Est GFR (MDRD) Non-Af BUN/Creatinine Ratio Glucose Calcium POC Glucose 88 248 H 199 H 10/13/19 10/14/19 10/14/19 21:33 05:02 06:58 WBC RBC Hgb Hct MCV MCH MCHC RDW Std Deviation RDW Coeff of Omayra Plt Count MPV Immature Gran % (Auto) Neut % (Auto) Lymph % (Auto) Wilkes % (Auto) Eos % (Auto) Baso % (Auto) Absolute Neuts (auto) Absolute Lymphs (auto) Nucleated RBC % Sodium 140 Potassium 3.8 Chloride 107 Carbon Dioxide 25.0 Anion Gap 8 BUN 8 Creatinine 0.59 L Estim Creat Clear Calc 147.97 Est GFR (MDRD) Af Amer 192 Est GFR (MDRD) Non-Af 159 BUN/Creatinine Ratio 13.5 Glucose 38 L* Calcium 8.6 POC Glucose 232 H 50 L Clinical Impression(s) from Imaging Studies Brain CT 10/11/19 13:26 IMPRESSION: Residual small acute subdural hematoma overlying the right frontoparietal lobes. No significant mass effect is seen at this time. Electronically Signed: John Tillman, at 14:57 EST , Service support , Current Medications Atorvastatin Calcium (Lipitor) 20 mg PO DAILY [facility] Last Admin: 10/13/19 09:28 Dose: 20 mg Documented by: Bupropion HCl (Wellbutrin Xl) 150 mg PO DAILY [facility] Last Admin: 10/13/19 09:26 Dose: 150 mg Documented by: Carvedilol (Coreg) 3.125 mg PO BID [facility] Last Admin: 10/13/19 21:36 Dose: 3.125 mg Documented by: Dextrose (D50w Syringe) 0 gm IV X1 PRN; Protocol PRN Reason: HYPOGLYCEMIA Dextrose (D50w Syringe) 0 gm IV X1 PRN; Protocol PRN Reason: Hypoglycemia Folic Acid (Folic Acid) 1 mg PO DAILY@0800 [facility] Last Admin: 10/13/19 09:26 Dose: 1 mg Documented by: Glucagon () 1 mg IM .X1 PRN PRN Reason: Hypoglycemia Heparin Sodium (Porcine) (Heparin Na) 5,000 unit SC Q12 [facility] Last Admin: 10/13/19 21:36 Dose: 5,000 unit Documented by: Sodium Chloride () 250 mls @ 15 mls/hr IV .[id number] PRN PRN Reason: Saline Flush Insulin Glargine (Lantus ([facility])) 25 units SC BID [facility] Last Admin: 10/13/19 21:37 Dose: 25 units Documented by: Insulin Human Lispro (Humalog Kwikpen ([facility])) 0 unit SC ACHS [facility]; Protocol Last Admin: 10/13/19 21:37 Dose: 6 units Documented by: Levetiracetam (Keppra Tablet) 1,500 mg PO BID [facility] Last Admin: 10/13/19 21:36 Dose: 1,500 mg Documented by: Lisinopril (Zestril) 2.5 mg PO DAILY [facility] Last Admin: 10/13/19 09:26 Dose: 2.5 mg Documented by: Magnesium Oxide (Mag-Ox 400) 400 mg PO DAILY [facility] Last Admin: 10/13/19 09:26 Dose: 400 mg Documented by: Melatonin (Melatonin) 6 mg PO QHS [facility] Last Admin: 10/13/19 21:37 Dose: 6 mg Documented by: Mirtazapine (Remeron) 30 mg PO QHS [facility] Last Admin: 10/13/19 21:36 Dose: 30 mg Documented by: Nicotine (Nicoderm Cq (Pb)) 21 mg TRANSDERM. DAILY [facility] Last Admin: 10/13/19 09:26 Dose: 21 mg Documented by: Ondansetron HCl (Zofran) 4 mg IV Q8H PRN PRN PRN Reason: NAUSEA/VOMITING Sodium Chloride () 10 - 40 ml IV UD PRN PRN Reason: SALINE FLUSH Last Admin: 10/12/19 04:57 Dose: 40 ml Documented by: Thiamine HCl (Vitamin B1) 100 mg PO DAILY [facility] Last Admin: 10/13/19 12:12 Dose: 100 mg Documented by: Tramadol HCl (Ultram) 100 mg PO Q6H PRN PRN PRN Reason: Headache Last Admin: 10/13/19 19:57 Dose: 100 mg Documented by: Medical Necessity - Tobacco Use Smoking Status: Current every day smoker Tobacco Use: Cigarettes Assessment/Plan All Active Problems (Last Reviewed 08/29/19 @ 04:57 by nErique Gaitan MD) Altered mental status (Acute) Acute kidney injury (Acute) DKA (diabetic ketoacidoses) (Acute) RECOMMENDATIONS: 1. Continue basal and sliding scale insulin coverage. 2. Given the lack of further ICU/pulmonary needs, will sign off. IMPRESSIONS: 1. Recurrent DKA secondary to noncompliance Now resolved following continuous infusion of IV insulin. Continue basal insulin and sliding scale coverage. 2. Acute kidney injury Resolved. Likely secondary to prerenal etiology with dehydration. Patient has received aggressive fluid resuscitation is doing much better at this time. No indication for renal replacement therapy at this time. 3. Metabolic encephalopathy/chronic alcoholism/dilated cardiomyopathy/recent subdural hematoma with resultant seizure disorder Complicates care, management, recovery and prognosis. Continue home medications as indicated. This note was generated with Flipboard dictation software. It may contain incorrect words, spelling, and punctuation that were not noted in checking the note before signing. Code Visit Inpatient E&M: 11476 Subs Hosp L2
[2019-10-14 07:40] LABS: Bedside Glucose 123 mg/dL (70-110)
[2019-10-14] MEDS: Heparin Injection (Vial) 5,000 UNIT/ML VIAL 5000 UNIT SC (09:34)
[2019-10-14] MEDS: levETIRAcetam 500 MG Tablet 1500 MG PO ×2 (09:34→21:18)
[2019-10-14] MEDS: Carvedilol 3.125 MG TABLET PO ×2 (09:34→21:17)
[2019-10-14] MEDS: Thiamine Hydrochloride 100 MG Tablet PO (09:34)
[2019-10-14] MEDS: Lisinopril 2.5 MG Tablet PO (09:35)
[2019-10-14] MEDS: Magnesium Oxide 400 MG Tablet PO (09:35)
[2019-10-14] MEDS: buPROPion (XL) 150 MG TABLET.XL PO (09:35)
[2019-10-14] MEDS: Atorvastatin Calcium 20 MG Tablet PO (09:35)
[2019-10-14] MEDS: Folic Acid 1 MG Tablet PO (09:36)
[2019-10-14 10:56] LABS: Pathologist Review Reviewed
[2019-10-14 11:02] LABS: Pathologist Review Reviewed
[2019-10-14] MEDS: Insulin Lispro 100 UNIT/ML INSULN.PEN SC ×3 (11:17→21:17)
[2019-10-14 11:21] LABS: Bedside Glucose 253 mg/dL (70-110)
--- NOTE | 2019-10-14 12:39 | PCM.PN.HOSP ---
Patient Problems: Active and Suspected Problems (Last Reviewed 08/29/19 @ 04:57 by Enrique Gaitan MD) Altered mental status (Acute) Subjective: Patient seen and examined. He had no complaints this morning and feels well. Review of systems otherwise negative. Labs and vitals reviewed. Patient's blood sugar noted to be down to 38 this morning. Patient states he did not have any symptoms of hypoglycemia such as lightheadedness or dizziness or palpitations and increased sweating. He states it is unusual for him as he usually able to tell if he is having hypoglycemic episodes. Labs and vitals reviewed. Vitals/I&O's: Vital Signs Temp Pulse Resp BP Pulse Ox 98.1 F 71 14 122/84 H 99 10/14/19 09:26 10/14/19 09:26 10/14/19 09:26 10/14/19 09:26 10/14/19 09:26 Oxygen Delivery Method Room Air Weight: 142 lb 13.753 oz Body Mass Index (BMI) 17.9 Finger Stick Blood Glucose 261 Intake and Output for Last 24 Hours 10/12/19 10/13/19 10/14/19 23:59 23:59 23:59 Intake Total 4065.05 / 4065.05 1989 / 1989 300 / 300 Output Total 2225 / 2625 3935 / 3935 3175 / 3175 Balance 1840.05 / 1440.05 -1945 / -1945 -2875 / -2875 General: Alert, Oriented x3, Cooperative, No apparent distress HEENT: Atraumatic, PERRLA, EOMI, Normocephalic Oral: Moist Mucosa Neck: Supple, No JVD, Negative Carotid Bruits Lungs: Clear to auscultation, Normal air movement, No rhonchi, No wheeze, No rales Cardiovascular: Regular rate, Regular Rhythm, Normal S1, Normal S2, No murmurs Abdomen: Bowel Sounds Present, Soft, Non Tender, Non-Distended, No Hepato-splenomegaly Extremities: No clubbing, No cyanosis, No edema, Capillary Refill Less than 3 Seconds Skin: No rashes, No breakdown, - - well healed right craniotomy scar Musculoskeletal: No Tenderness to Palpation of Joints or Extremities Lymphatic: No Cervical, Supraclavicular, or Inguinal Adenopathy Neurological: Cranial nerves II-XII grossly intact Psych/Mental Status: Normal Affect, Appropriate, Alert and oriented to time, place, person, mood and affect Laboratory Results 10/11/19 13:25: Diff Path Review Reviewed 10/12/19 05:30: Diff Path Review Reviewed 10/13/19 16:32: POC Glucose 199 H 10/13/19 21:33: POC Glucose 232 H 10/14/19 05:02: Sodium 140, Potassium 3.8, Chloride 107, Carbon Dioxide 25.0, Anion Gap 8, BUN 8, Creatinine 0.59 L, Estim Creat Clear Calc 147.97, Est GFR (MDRD) Af Amer 192, Est GFR (MDRD) Non-Af 159, BUN/Creatinine Ratio 13.5, Glucose 38 L*, Calcium 8.6 10/14/19 06:58: POC Glucose 50 L 10/14/19 07:37: POC Glucose 123 H 10/14/19 11:14: POC Glucose 253 H Diagnostic Data Brain CT 10/11/19 13:26 IMPRESSION: Residual small acute subdural hematoma overlying the right frontoparietal lobes. No significant mass effect is seen at this time. Electronically Signed: John Tillman, at 14:57 EST , Service support , Current Medications Atorvastatin Calcium (Lipitor) 20 mg PO DAILY [facility] Last Admin: 10/14/19 09:35 Dose: 20 mg Documented by: Bupropion HCl (Wellbutrin Xl) 150 mg PO DAILY [facility] Last Admin: 10/14/19 09:35 Dose: 150 mg Documented by: Carvedilol (Coreg) 3.125 mg PO BID [facility] Last Admin: 10/14/19 09:34 Dose: 3.125 mg Documented by: Dextrose (D50w Syringe) 0 gm IV X1 PRN; Protocol PRN Reason: HYPOGLYCEMIA Dextrose (D50w Syringe) 0 gm IV X1 PRN; Protocol PRN Reason: Hypoglycemia Folic Acid (Folic Acid) 1 mg PO DAILY@0800 [facility] Last Admin: 10/14/19 09:36 Dose: 1 mg Documented by: Glucagon () 1 mg IM .X1 PRN PRN Reason: Hypoglycemia Heparin Sodium (Porcine) (Heparin Na) 5,000 unit SC Q12 [facility] Last Admin: 10/14/19 09:34 Dose: 5,000 unit Documented by: Sodium Chloride () 250 mls @ 15 mls/hr IV .[id number] PRN PRN Reason: Saline Flush Insulin Glargine (Lantus (Bk)) 25 units SC BID [facility] Last Admin: 10/14/19 09:36 Dose: 25 units Documented by: Insulin Human Lispro (Humalog Kwikpen ([facility])) 0 unit SC ACHS [facility]; Protocol Last Admin: 10/14/19 11:17 Dose: 6 units Documented by: Levetiracetam (Keppra Tablet) 1,500 mg PO BID [facility] Last Admin: 10/14/19 09:34 Dose: 1,500 mg Documented by: Lisinopril (Zestril) 2.5 mg PO DAILY [facility] Last Admin: 10/14/19 09:35 Dose: 2.5 mg Documented by: Magnesium Oxide (Mag-Ox 400) 400 mg PO DAILY [facility] Last Admin: 10/14/19 09:35 Dose: 400 mg Documented by: Melatonin (Melatonin) 6 mg PO QHS [facility] Last Admin: 10/13/19 21:37 Dose: 6 mg Documented by: Mirtazapine (Remeron) 30 mg PO QHS [facility] Last Admin: 10/13/19 21:36 Dose: 30 mg Documented by: Nicotine (Nicoderm Cq (Pb[facility])) 21 mg TRANSDERM. DAILY [facility] Last Admin: 10/14/19 09:35 Dose: 21 mg Documented by: Ondansetron HCl (Zofran) 4 mg IV Q8H PRN PRN PRN Reason: NAUSEA/VOMITING Sodium Chloride () 10 - 40 ml IV UD PRN PRN Reason: SALINE FLUSH Last Admin: 10/12/19 04:57 Dose: 40 ml Documented by: Thiamine HCl (Vitamin B1) 100 mg PO DAILY [facility] Last Admin: 10/14/19 09:34 Dose: 100 mg Documented by: Tramadol HCl (Ultram) 100 mg PO Q6H PRN PRN PRN Reason: Headache Last Admin: 10/13/19 19:57 Dose: 100 mg Documented by: STROKE Vital Signs/Narrative: Vital Signs Temp Pulse Resp BP Pulse Ox 10/14/19 09:26 98.1 F 71 14 122/84 H 99 Medical Necessity - Tobacco Use Smoking Status: Current every day smoker Tobacco Use: Cigarettes Assessment/Plan All Active Problems (Last Reviewed 08/29/19 @ 04:57 by Enrique Gaitan MD) Altered mental status (Acute) Acute kidney injury (Acute) DKA (diabetic ketoacidoses) (Acute) 1. DKA due to noncompliance: resolved. now on insulin lantus 25IU bid was hypoglycemic this morning, with blood sugar being 38. Most importantly, he didnt have any symptoms of hypoglycemia. This is concerning as patient may be a brittle diabetic. We will therefore reduce nighttime insulin dose to 20 units and monitor the morning blood sugars. Accu-Cheks before meals at bedtime. Insulin sliding scale. 2. ELIZABETH: Resolved. 3. History of recent subdural hematoma with resultant seizures: Recently discharged from rehab. CT of the brain done on admission showed small residual subdural hematoma Will monitor. PT OT on board. 4. Chronic alcoholism: on thiamine, multivites and folic acid 5. Seizure disorder due to subdural hematoma: on keppra 6. Hypertension: on carvedilol and lisinopril 7. DVT prophylaxis: will hold heparin o/a of residual subdural hematoma Disposition; for dc home tomorrow. will be going to his parents, then will subsequently go to [facility], where he lived for many years. Code Visit Inpatient E&M: 46925 Subs Hosp L2
--- NOTE | 2019-10-14 13:22 | CASEMGMT ---
SW met with patient, introduced self and role at [facility]. Patient lives with his parents in a 1 story home with 1-2 entry steps. His mom does not allow him to go to the basement as she is afraid he will fall on the steps. This past week he did stay at a hotel to get a break from his parents. He was in [facility] for rehab as he had a subdural hemtoma as a result of his seizures. He said he was in his parents garage, had a seizure and fell hitting his head. He said he was in rehab for a week. He thinks he was discharged 11-12. He said they told him he walks better than most of the people in the facility. Patient has a cane which he does not use. Dr Cintron is his primary care doctor. He sees [facility] for Endocrinology, he said he has an appt with Dr Aris Nelson (Endocrinology) also. He uses [facility] in [place]. He has a history of Depression and Anxiety. He used to go to [facility], but stopped going. He said the Psychiatrist talked with you via tv, he felt this was impersonal. He is on medication and feels it is working for him. He also has a history of substance abuse, alcohol is his drug of choice. He said he is still drinking. He has tried to quit for years. He used to go to AA meetings, but then his friend that used to take him started to have health problems. He used to go to [facility]. He also went to [facility] [place] for inpatient alcohol treatment. However, they kicked him out as he had clean urine? He said the last time he was here the [facility] gave him a packet of substance abuse resources. He does not feel he will need anything at d/c. Plan: home with patient's parents Lois Yvette RAMIRES MSW
[2019-10-14 17:01] LABS: Bedside Glucose 197 mg/dL (70-110)
[2019-10-14] MEDS: MELATONIN 3 MG TABLET 6 MG PO (21:18)
[2019-10-14] MEDS: Mirtazapine 15 MG Tablet 30 MG PO (21:19)
[2019-10-14] MEDS: traMADol 50 MG Tablet 100 MG PO (21:25)
[2019-10-14 21:55] LABS: Bedside Glucose 313 mg/dL (70-110)
[2019-10-15 03:00] VITALS: PULSE 75
[2019-10-15 03:15] VITALS: BP 113/62; PULSE 72; RESP 16; TEMP 36.6; O2SAT 98
[2019-10-15] MEDS: traMADol 50 MG Tablet 100 MG PO (03:25)
[2019-10-15] MEDS: Insulin Lispro 100 UNIT/ML INSULN.PEN SC (06:32)
[2019-10-15 06:40] LABS: Bedside Glucose 302 mg/dL (70-110)
[2019-10-15 07:00] VITALS: PULSE 67
[2019-10-15 07:50] VITALS: BP 121/82; PULSE 79; RESP 14; TEMP 36.5; O2SAT 99
[2019-10-15] MEDS: Folic Acid 1 MG Tablet PO (07:50)
[2019-10-15] MEDS: Lisinopril 2.5 MG Tablet PO (09:40)
[2019-10-15] MEDS: Magnesium Oxide 400 MG Tablet PO (09:40)
[2019-10-15] MEDS: Thiamine Hydrochloride 100 MG Tablet PO (09:40)
[2019-10-15] MEDS: buPROPion (XL) 150 MG TABLET.XL PO (09:40)
[2019-10-15] MEDS: levETIRAcetam 500 MG Tablet 1500 MG PO (09:41)
[2019-10-15] MEDS: Carvedilol 3.125 MG TABLET PO (09:41)
[2019-10-15] MEDS: Atorvastatin Calcium 20 MG Tablet PO (09:41)
--- NOTE | 2019-10-15 09:48 | DCINST_ITS ---
- Discharge Diagnoses Current Active Problems: Current Active and Chronic Problems (Last Reviewed 08/29/19 @ 04:57 by Enrique Gaitan MD) Altered mental status (Acute) You will use the following diet at home:: Calorie/Carbohydrate Controlled (specify 1200, 1400, etc) - 1800 Your food should be the consistency of: Regular Your liquids should be the consistency of: Regular/Thin Discharge Activity: Return to Normal Activity Weight Bearing Status: Weight bearing as tolerated Call your doctor if you observe: Fever of 101 or Higher, Shortness of breath, - - low blood sugars Instructions: How to Check Your Blood Sugar, Types of Insulin Additional Instructions: check blood sugar every morning and evening, and present blood sugar log to your PCP and clinical evaluator, for adjustment of insulin as needed. Keep a sugar snack close in case blood sugar goes low. Allergies/Adverse Reactions: Allergies zinc Allergy (Intermediate, Verified 10/11/19 12:42) Hives Medications to take at Discharge levetiracetam 500 mg tablet 1,500 mg PO BID 01/18/18 mirtazapine 15 mg tablet 30 mg PO QHS 01/18/18 Folic Acid 1 tab PO DAILY 30 Days #30 tab 04/16/19 Atorvastatin Calcium 20 mg PO DAILY 04/22/19 Lisinopril [Zestril] 2.5 mg PO QDAY 04/24/19 Carvedilol 3.125 mg PO BID 05/13/19 Bupropion HCl [Bupropion Xl] 150 mg PO DAILY 09/17/19 Melatonin 6 mg PO QHS 09/17/19 Thiamine HCl [Vitamin B-1] 100 mg PO DAILY 09/17/19 Magnesium Oxide 400 mg PO DAILY 10/11/19 Oxycodone [Oxyir] 5 mg PO TID PRN PRN 10/11/19 Insulin Lispro [Humalog KwikPen] 0 unit SQ 10/12/19 Insulin Glargine [Lantus SoloStar Pen] 25 units SUBCUT UD #10 pen 10/15/19 The following prescriptions were given: Insulin Glargine [Lantus SoloStar Pen] 25 units SUBCUT UD #10 pen Transmission Status: Pending to [facility]/pharmacy #[id number] Primary Care Physician: Moni Cintron MD [Primary Care Provider] - Please follow up with your Primary Care Physician in: one week Test Results: Test results from this visit will be discussed in further detail at your follow- up appointment, if applicable. Please Follow Up With: Aris Nelson MD When: 1-2 weeks Proposed Discharge Date: 10/15/19
--- NOTE | 2019-10-15 09:53 | DS.PCM_ITS ---
Discharge Date and Diagnosis Date of Admission: 10/11/19 Date of Discharge: 10/15/19 - Primary Discharge Diagnosis Active and Suspected Problems (Last Reviewed 08/29/19 @ 04:57 by Enrique Gaitan MD) Altered mental status (Acute) diabetic ketoacidosis - Secondary Discharge Diagnosis Chronic Problems (Last Reviewed 08/29/19 @ 04:57 by Enrique Gaitan MD) Anxiety and depression (Chronic) Tobacco dependence (Chronic) Diabetes type 1, uncontrolled (Chronic) DKA w/ encephalopathy 03/2019 Alcoholic cardiomyopathy (Chronic) Nicotine dependence (Chronic) Hospital Course and Treatment Imaging Results: Diagnostic Data Brain CT 10/11/19 13:26 IMPRESSION: Residual small acute subdural hematoma overlying the right frontoparietal lobes. No significant mass effect is seen at this time. Electronically Signed: John Layne, at 14:57 EST , Service support , critical care- Dr Carcamo Operations: None Procedures: None Summary of Care Provided: The patient is a 44 year old M with a past medical history as listed which includes uncontrolled type 1 diabetes mellitus. He was admitted through the ED on 10/11/2019 from a local hotel after he was brought in by the squad due to erratic behavior and confusion. Patient had recently had a subdural hematoma for which she was transferred to [place] for treatment and subsequently went to a rehab unit for therapy. Afterwards he was discharged home and then from there went to the hotel from where he was admitted during this and this admission. On arrival in the ED, he was found to have leukocytosis with white cell count above 30,000 with sodium of 121 and potassium of 5.9. Bicarb was 5 and anion gap was 38 creatinine was 2.02. Glucose was thousand 123 and he had a large amount of acetone in the blood. Anion gap was 38 on admission. ABG done showed pH of 7.21 with bicarb of 5.3 and PCO2 of 13.4. CT of the head done showed only residual small subdural hematoma. He was admitted to the ICU and managed for diabetic ketoacidosis. He was started on insulin drip and IV fluids. He was also managed for acute metabolic encephalopathy due to the DKA and ELIZABETH. Anion gap closed with administration of insulin drip and IV fluids. Patient's metabolic encephalopathy resolved. He was transferred out of the ICU and started on his baseline insulin Lantus 25 units twice daily. However, patient was noted to have hypoglycemia usually in the mornings with blood sugar going as low as 38. His nighttime insulin dose was therefore cut down to 20 units on account of suspicion that he may be a brittle diabetic. Patient remained stable and was discharged home on 10/15/2019. 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 Patient was counseled to keep a log of his blood sugars morning and evening and presented to his primary care doctor and gaming cage cashier for insulin dosage to be adjusted as needed. Patient seen and examined prior to discharge. He felt well and had no complaints. Review of systems was otherwise negative. His blood sugar in the morning was high around 302 and he said it was because he drank a Glucerna shake in the middle of the night. Labs and vitals reviewed. Home medications reviewed and reconciled. o/e: Vital Signs Height 6 ft Weight: 143 lb 8.335 oz Weight in Pounds 143.5 lbs Pulse Ox 99 Temperature 97.7 F Pulse Rate 79 Respiratory Rate 14 Blood Pressure [BP] 114/62 Blood Pressure 121/82 Blood Pressure Position [BP] Semi-Fowlers Blood Pressure Position Semi-Fowlers [] General: Alert, Oriented x3, Cooperative, No apparent distress HEENT: Atraumatic, PERRLA, EOMI, Normocephalic Oral: Moist Mucosa Neck: Supple, No JVD, Negative Carotid Bruits Lungs: Clear to auscultation, Normal air movement, No rhonchi, No wheeze, No rales Cardiovascular: Regular rate, Regular Rhythm, Normal S1, Normal S2, No murmurs Abdomen: Bowel Sounds Present, Soft, Non Tender, Non-Distended, No Hepato- splenomegaly Extremities: No clubbing, No cyanosis, No edema, Capillary Refill Less than 3 Se conds Skin: No rashes, No breakdown, - - well healed right craniotomy scar Musculoskeletal: No Tenderness to Palpation of Joints or Extremities Lymphatic: No Cervical, Supraclavicular, or Inguinal Adenopathy Neurological: Cranial nerves II-XII grossly intact Psych/Mental Status: Normal Affect, Appropriate, Alert and oriented to time, place, person, mood and affect Plan as above - Physical Exam Vitals/I&O's: Vital Signs Temp Pulse Resp BP Pulse Ox 97.7 F L 79 14 121/82 H 99 10/15/19 07:50 10/15/19 07:50 10/15/19 07:50 10/15/19 07:50 10/15/19 07:50 Oxygen Delivery Method Room Air Weight: 143 lb 8.335 oz Body Mass Index (BMI) 17.9 Finger Stick Blood Glucose 261 Intake and Output for Last 24 Hours 10/13/19 10/14/19 10/15/19 23:59 23:59 23:59 Intake Total 1989 800 / 800 350 / 350 Output Total 3935 / 3935 6425 / 6425 500 / 500 Balance -1945 / -1945 -5625 / -5625 -150 / -150 Laboratory Results 10/11/19 13:25: Diff Path Review Reviewed 10/12/19 05:30: Diff Path Review Reviewed 10/14/19 11:14: POC Glucose 253 H 10/14/19 16:52: POC Glucose 197 H 10/14/19 21:13: POC Glucose 313 H 10/15/19 06:31: POC Glucose 302 H Laboratory Tests 10/15/19 10/14/19 10/14/19 Range/Units 06:31 21:13 16:52 WBC (4.4-11.0) K/mm3 RBC (4.6-6.2) M/mm3 Hgb (13.0-16.5) g/dL Hct (40-54) % MCV (80-94) fL MCH (27.0-32.0) pg MCHC (32-36) g/dL RDW Std Deviation (35.1-43.9) fl RDW Coeff of Omayra (11.6-14.6) % Plt Count (150-450) K/mm3 MPV (6.2-12.0) fl Immature Gran % (Auto) (0.0-0.9) % Neut % (Auto) (47-70) % Lymph % (Auto) (19-41) % [place] % (Auto) (0-10) % Eos % (Auto) (0-5) % Baso % (Auto) (0-1) % Absolute Neuts (auto) (2.0-7.7) X10^3/uL Absolute Lymphs (auto) (0.83-4.51) X10^3/uL Nucleated RBC % (0-5) % Differential Comment Diff Path Review Platelet Estimate (ADEQ) Kristal Cells Acanthocytes (Spur) Specimen Type Sample Site pH (7.35-7.45) Bicarbonate Actual (22-26) mmol/L POC Total CO2 mmol/L Base Excess (-2 to +2) mmol/L O2 Saturation (95-99) % ABG pCO2 (35-45) mmHg ABG pO2 (75-100) mmHG Anurag Test O2 Delivery Device Blood Gas Notified Whom Blood Gas Notified Time Sodium (136-145) mmol/L Potassium (3.5-5.1) mmol/L Chloride (98-107) mmol/L Carbon Dioxide (21.0-32.0) mmol/L Anion Gap (5-15) BUN (7-18) mg/dL Creatinine (0.70-1.30) mg/dL Estim Creat Clear Calc ml/min Est GFR (MDRD) Af Amer (>60) mL/min Est GFR (MDRD) Non-Af (>60) mL/min BUN/Creatinine Ratio (10-20) RATIO Glucose (74-106) mg/dL Calcium (8.5-10.1) mg/dL Magnesium (1.6-2.6) mg/dL Total Bilirubin (0.20-1.00) mg/dL AST (15-37) U/L ALT (16-61) U/L Alkaline Phosphatase (45-117) U/L Total Protein (6.4-8.2) g/dL Albumin (3.2-5.0) g/dL Globulin (2.2-4.2) g/dL Albumin/Globulin Ratio (0.9-2.4) RATIO Urine Color (Yellow) Urine Clarity (Clear) Urine pH (5.0 - 8.0) Ur Specific [place] (1.002-1.030) Urine Protein (Negative) mg/dl Urine Glucose (UA) (Normal) mg/dl Urine Ketones (Negative) mg/dl Urine Occult Blood (Negative) /ul Urine Nitrite (Negative) Urine Bilirubin (Negative) mg/dL Urine Urobilinogen (Normal) mg/dl Ur Leukocyte Esterase (Negative) /ul Urine RBC (0-5) /hpf Urine WBC (0-5) /hpf Ur Squamous Epith Cells (0-5) /hpf Urine Bacteria (None Seen) /hpf Urine Mucus (<or=2+) /hpf Ethyl Alcohol mg/dL Acetone Level (NEG) POC Glucose 302 H 313 H 197 H (70-110) mg/dL 10/14/19 10/14/19 10/14/19 Range/Units 11:14 07:37 06:58 WBC (4.4-11.0) K/mm3 RBC (4.6-6.2) M/mm3 Hgb (13.0-16.5) g/dL Hct (40-54) % MCV (80-94) fL MCH (27.0-32.0) pg MCHC (32-36) g/dL RDW Std Deviation (35.1-43.9) fl RDW Coeff of Omayra (11.6-14.6) % Plt Count (150-450) K/mm3 MPV (6.2-12.0) fl Immature Gran % (Auto) (0.0-0.9) % Neut % (Auto) (47-70) % Lymph % (Auto) (19-41) % [place] % (Auto) (0-10) % Eos % (Auto) (0-5) % Baso % (Auto) (0-1) % Absolute Neuts (auto) (2.0-7.7) X10^3/uL Absolute Lymphs (auto) (0.83-4.51) X10^3/uL Nucleated RBC % (0-5) % Differential Comment Diff Path Review Platelet Estimate (ADEQ) Kristal Cells Acanthocytes (Spur) Specimen Type Sample Site pH (7.35-7.45) Bicarbonate Actual (22-26) mmol/L POC Total CO2 mmol/L Base Excess (-2 to +2) mmol/L O2 Saturation (95-99) % ABG pCO2 (35-45) mmHg ABG pO2 (75-100) mmHG Anurag Test O2 Delivery Device Blood Gas Notified Whom Blood Gas Notified Time Sodium (136-145) mmol/L Potassium (3.5-5.1) mmol/L Chloride (98-107) mmol/L Carbon Dioxide (21.0-32.0) mmol/L Anion Gap (5-15) BUN (7-18) mg/dL Creatinine (0.70-1.30) mg/dL Estim Creat Clear Calc ml/min Est GFR (MDRD) Af Amer (>60) mL/min Est GFR (MDRD) Non-Af (>60) mL/min BUN/Creatinine Ratio (10-20) RATIO Glucose (74-106) mg/dL Calcium (8.5-10.1) mg/dL Magnesium (1.6-2.6) mg/dL Total Bilirubin (0.20-1.00) mg/dL AST (15-37) U/L ALT (16-61) U/L Alkaline Phosphatase (45-117) U/L Total Protein (6.4-8.2) g/dL Albumin (3.2-5.0) g/dL Globulin (2.2-4.2) g/dL Albumin/Globulin Ratio (0.9-2.4) RATIO Urine Color (Yellow) Urine Clarity (Clear) Urine pH (5.0 - 8.0) Ur Specific [place] (1.002-1.030) Urine Protein (Negative) mg/dl Urine Glucose (UA) (Normal) mg/dl Urine Ketones (Negative) mg/dl Urine Occult Blood (Negative) /ul Urine Nitrite (Negative) Urine Bilirubin (Negative) mg/dL Urine Urobilinogen (Normal) mg/dl Ur Leukocyte Esterase (Negative) /ul Urine RBC (0-5) /hpf Urine WBC (0-5) /hpf Ur Squamous Epith Cells (0-5) /hpf Urine Bacteria (None Seen) /hpf Urine Mucus (<or=2+) /hpf Ethyl Alcohol mg/dL Acetone Level (NEG) POC Glucose 253 H 123 H 50 L (70-110) mg/dL 10/14/19 10/13/19 10/13/19 Range/Units 05:02 21:33 16:32 WBC (4.4-11.0) K/mm3 RBC (4.6-6.2) M/mm3 Hgb (13.0-16.5) g/dL Hct (40-54) % MCV (80-94) fL MCH (27.0-32.0) pg MCHC (32-36) g/dL RDW Std Deviation (35.1-43.9) fl RDW Coeff of Omayra (11.6-14.6) % Plt Count (150-450) K/mm3 MPV (6.2-12.0) fl Immature Gran % (Auto) (0.0-0.9) % Neut % (Auto) (47-70) % Lymph % (Auto) (19-41) % [place] % (Auto) (0-10) % Eos % (Auto) (0-5) % Baso % (Auto) (0-1) % Absolute Neuts (auto) (2.0-7.7) X10^3/uL Absolute Lymphs (auto) (0.83-4.51) X10^3/uL Nucleated RBC % (0-5) % Differential Comment Diff Path Review Platelet Estimate (ADEQ) Kristal Cells Acanthocytes (Spur) Specimen Type Sample Site pH (7.35-7.45) Bicarbonate Actual (22-26) mmol/L POC Total CO2 mmol/L Base Excess (-2 to +2) mmol/L O2 Saturation (95-99) % ABG pCO2 (35-45) mmHg ABG pO2 (75-100) mmHG Anurag Test O2 Delivery Device Blood Gas Notified Whom Blood Gas Notified Time Sodium 140 (136-145) mmol/L Potassium 3.8 (3.5-5.1) mmol/L Chloride 107 (98-107) mmol/L Carbon Dioxide 25.0 (21.0-32.0) mmol/L Anion Gap 8 (5-15) BUN 8 (7-18) mg/dL Creatinine 0.59 L (0.70-1.30) mg/dL Estim Creat Clear Calc 147.97 ml/min Est GFR (MDRD) Af Amer 192 (>60) mL/min Est GFR (MDRD) Non-Af 159 (>60) mL/min BUN/Creatinine Ratio 13.5 (10-20) RATIO Glucose 38 L* (74-106) mg/dL Calcium 8.6 (8.5-10.1) mg/dL Magnesium (1.6-2.6) mg/dL Total Bilirubin (0.20-1.00) mg/dL AST (15-37) U/L ALT (16-61) U/L Alkaline Phosphatase (45-117) U/L Total Protein (6.4-8.2) g/dL Albumin (3.2-5.0) g/dL Globulin (2.2-4.2) g/dL Albumin/Globulin Ratio (0.9-2.4) RATIO Urine Color (Yellow) Urine Clarity (Clear) Urine pH (5.0 - 8.0) Ur Specific [place] (1.002-1.030) Urine Protein (Negative) mg/dl Urine Glucose (UA) (Normal) mg/dl Urine Ketones (Negative) mg/dl Urine Occult Blood (Negative) /ul Urine Nitrite (Negative) Urine Bilirubin (Negative) mg/dL Urine Urobilinogen (Normal) mg/dl Ur Leukocyte Esterase (Negative) /ul Urine RBC (0-5) /hpf Urine WBC (0-5) /hpf Ur Squamous Epith Cells (0-5) /hpf Urine Bacteria (None Seen) /hpf Urine Mucus (<or=2+) /hpf Ethyl Alcohol mg/dL Acetone Level (NEG) POC Glucose 232 H 199 H (70-110) mg/dL 10/13/19 10/13/19 10/13/19 Range/Units 12:08 09:01 05:55 WBC (4.4-11.0) K/mm3 RBC (4.6-6.2) M/mm3 Hgb (13.0-16.5) g/dL Hct (40-54) % MCV (80-94) fL MCH (27.0-32.0) pg MCHC (32-36) g/dL RDW Std Deviation (35.1-43.9) fl RDW Coeff of Omayra (11.6-14.6) % Plt Count (150-450) K/mm3 MPV (6.2-12.0) fl Immature Gran % (Auto) (0.0-0.9) % Neut % (Auto) (47-70) % Lymph % (Auto) (19-41) % [place] % (Auto) (0-10) % Eos % (Auto) (0-5) % Baso % (Auto) (0-1) % Absolute Neuts (auto) (2.0-7.7) X10^3/uL Absolute Lymphs (auto) (0.83-4.51) X10^3/uL Nucleated RBC % (0-5) % Differential Comment Diff Path Review Platelet Estimate (ADEQ) Kristal Cells Acanthocytes (Spur) Specimen Type Sample Site pH (7.35-7.45) Bicarbonate Actual (22-26) mmol/L POC Total CO2 mmol/L Base Excess (-2 to +2) mmol/L O2 Saturation (95-99) % ABG pCO2 (35-45) mmHg ABG pO2 (75-100) mmHG Anurag Test O2 Delivery Device Blood Gas Notified Whom Blood Gas Notified Time Sodium 143 (136-145) mmol/L Potassium 3.4 L (3.5-5.1) mmol/L Chloride 107 (98-107) mmol/L Carbon Dioxide 28.0 (21.0-32.0) mmol/L Anion Gap 8 (5-15) BUN 12 (7-18) mg/dL Creatinine 0.88 (0.70-1.30) mg/dL Estim Creat Clear Calc 98.59 ml/min Est GFR (MDRD) Af Amer 121 (>60) mL/min Est GFR (MDRD) Non-Af 100 (>60) mL/min BUN/Creatinine Ratio 13.6 (10-20) RATIO Glucose 134 H (74-106) mg/dL Calcium 8.4 L (8.5-10.1) mg/dL Magnesium (1.6-2.6) mg/dL Total Bilirubin (0.20-1.00) mg/dL AST (15-37) U/L ALT (16-61) U/L Alkaline Phosphatase (45-117) U/L Total Protein (6.4-8.2) g/dL Albumin (3.2-5.0) g/dL Globulin (2.2-4.2) g/dL Albumin/Globulin Ratio (0.9-2.4) RATIO Urine Color (Yellow) Urine Clarity (Clear) Urine pH (5.0 - 8.0) Ur Specific [place] (1.002-1.030) Urine Protein (Negative) mg/dl Urine Glucose (UA) (Normal) mg/dl Urine Ketones (Negative) mg/dl Urine Occult Blood (Negative) /ul Urine Nitrite (Negative) Urine Bilirubin (Negative) mg/dL Urine Urobilinogen (Normal) mg/dl Ur Leukocyte Esterase (Negative) /ul Urine RBC (0-5) /hpf Urine WBC (0-5) /hpf Ur Squamous Epith Cells (0-5) /hpf Urine Bacteria (None Seen) /hpf Urine Mucus (<or=2+) /hpf Ethyl Alcohol mg/dL Acetone Level (NEG) POC Glucose 248 H 88 (70-110) mg/dL 10/13/19 10/12/19 10/12/19 Range/Units 05:55 22:07 15:41 WBC 10.8 (4.4-11.0) K/mm3 RBC 3.20 L (4.6-6.2) M/mm3 Hgb 10.1 L (13.0-16.5) g/dL Hct 30.4 L (40-54) % MCV 95.0 H (80-94) fL MCH 31.6 (27.0-32.0) pg MCHC 33.2 (32-36) g/dL RDW Std Deviation 47.7 H (35.1-43.9) fl RDW Coeff of Omayra 13.7 (11.6-14.6) % Plt Count 222 (150-450) K/mm3 MPV 9.3 (6.2-12.0) fl Immature Gran % (Auto) 0.400 (0.0-0.9) % Neut % (Auto) 67.4 (47-70) % Lymph % (Auto) 24.9 (19-41) % [place] % (Auto) 6.5 (0-10) % Eos % (Auto) 0.6 (0-5) % Baso % (Auto) 0.2 (0-1) % Absolute Neuts (auto) 7.3 (2.0-7.7) X10^3/uL Absolute Lymphs (auto) 2.70 (0.83-4.51) X10^3/uL Nucleated RBC % 0 (0-5) % Differential Comment Diff Path Review Platelet Estimate (ADEQ) [place] Cells Acanthocytes (Spur) Specimen Type Sample Site pH (7.35-7.45) Bicarbonate Actual (22-26) mmol/L POC Total CO2 mmol/L Base Excess (-2 to +2) mmol/L O2 Saturation (95-99) % ABG pCO2 (35-45) mmHg ABG pO2 (75-100) mmHG Anurag Test O2 Delivery Device Blood Gas Notified Whom Blood Gas Notified Time Sodium (136-145) mmol/L Potassium (3.5-5.1) mmol/L Chloride (98-107) mmol/L Carbon Dioxide (21.0-32.0) mmol/L Anion Gap (5-15) BUN (7-18) mg/dL Creatinine (0.70-1.30) mg/dL Estim Creat Clear Calc ml/min Est GFR (MDRD) Af Amer (>60) mL/min Est GFR (MDRD) Non-Af (>60) mL/min BUN/Creatinine Ratio (10-20) RATIO Glucose (74-106) mg/dL Calcium (8.5-10.1) mg/dL Magnesium (1.6-2.6) mg/dL Total Bilirubin (0.20-1.00) mg/dL AST (15-37) U/L ALT (16-61) U/L Alkaline Phosphatase (45-117) U/L Total Protein (6.4-8.2) g/dL Albumin (3.2-5.0) g/dL Globulin (2.2-4.2) g/dL Albumin/Globulin Ratio (0.9-2.4) RATIO Urine Color (Yellow) Urine Clarity (Clear) Urine pH (5.0 - 8.0) Ur Specific [place] (1.002-1.030) Urine Protein (Negative) mg/dl Urine Glucose (UA) (Normal) mg/dl Urine Ketones (Negative) mg/dl Urine Occult Blood (Negative) /ul Urine Nitrite (Negative) Urine Bilirubin (Negative) mg/dL Urine Urobilinogen (Normal) mg/dl Ur Leukocyte Esterase (Negative) /ul Urine RBC (0-5) /hpf Urine WBC (0-5) /hpf Ur Squamous Epith Cells (0-5) /hpf Urine Bacteria (None Seen) /hpf Urine Mucus (<or=2+) /hpf Ethyl Alcohol mg/dL Acetone Level (NEG) POC Glucose 367 H 343 H (70-110) mg/dL 10/12/19 10/12/19 10/12/19 Range/Units 10:47 09:15 09:03 WBC (4.4-11.0) K/mm3 RBC (4.6-6.2) M/mm3 Hgb (13.0-16.5) g/dL Hct (40-54) % MCV (80-94) fL MCH (27.0-32.0) pg MCHC (32-36) g/dL RDW Std Deviation (35.1-43.9) fl RDW Coeff of Omayra (11.6-14.6) % Plt Count (150-450) K/mm3 MPV (6.2-12.0) fl Immature Gran % (Auto) (0.0-0.9) % Neut % (Auto) (47-70) % Lymph % (Auto) (19-41) % [place] % (Auto) (0-10) % Eos % (Auto) (0-5) % Baso % (Auto) (0-1) % Absolute Neuts (auto) (2.0-7.7) X10^3/uL Absolute Lymphs (auto) (0.83-4.51) X10^3/uL Nucleated RBC % (0-5) % Differential Comment Diff Path Review Platelet Estimate (ADEQ) [place] Cells Acanthocytes (Spur) Specimen Type Sample Site pH (7.35-7.45) Bicarbonate Actual (22-26) mmol/L POC Total CO2 mmol/L Base Excess (-2 to +2) mmol/L O2 Saturation (95-99) % ABG pCO2 (35-45) mmHg ABG pO2 (75-100) mmHG Anurag Test O2 Delivery Device Blood Gas Notified Whom Blood Gas Notified Time Sodium 141 (136-145) mmol/L Potassium 4.2 (3.5-5.1) mmol/L Chloride 110 H (98-107) mmol/L Carbon Dioxide 22.0 (21.0-32.0) mmol/L Anion Gap 9 (5-15) BUN 30 H (7-18) mg/dL Creatinine 1.31 H (0.70-1.30) mg/dL Estim Creat Clear Calc 63.86 ml/min Est GFR (MDRD) Af Amer 77 (>60) mL/min Est GFR (MDRD) Non-Af 63 (>60) mL/min BUN/Creatinine Ratio 22.9 H (10-20) RATIO Glucose 300 H (74-106) mg/dL Calcium 7.9 L (8.5-10.1) mg/dL Magnesium (1.6-2.6) mg/dL Total Bilirubin (0.20-1.00) mg/dL AST (15-37) U/L ALT (16-61) U/L Alkaline Phosphatase (45-117) U/L Total Protein (6.4-8.2) g/dL Albumin (3.2-5.0) g/dL Globulin (2.2-4.2) g/dL Albumin/Globulin Ratio (0.9-2.4) RATIO Urine Color (Yellow) Urine Clarity (Clear) Urine pH (5.0 - 8.0) Ur Specific [place] (1.002-1.030) Urine Protein (Negative) mg/dl Urine Glucose (UA) (Normal) mg/dl Urine Ketones (Negative) mg/dl Urine Occult Blood (Negative) /ul Urine Nitrite (Negative) Urine Bilirubin (Negative) mg/dL Urine Urobilinogen (Normal) mg/dl Ur Leukocyte Esterase (Negative) /ul Urine RBC (0-5) /hpf Urine WBC (0-5) /hpf Ur Squamous Epith Cells (0-5) /hpf Urine Bacteria (None Seen) /hpf Urine Mucus (<or=2+) /hpf Ethyl Alcohol mg/dL Acetone Level (NEG) POC Glucose 261 H 272 H (70-110) mg/dL 10/12/19 10/12/19 10/12/19 Range/Units 08:05 06:49 05:55 WBC (4.4-11.0) K/mm3 RBC (4.6-6.2) M/mm3 Hgb (13.0-16.5) g/dL Hct (40-54) % MCV (80-94) fL MCH (27.0-32.0) pg MCHC (32-36) g/dL RDW Std Deviation (35.1-43.9) fl RDW Coeff of Omayra (11.6-14.6) % Plt Count (150-450) K/mm3 MPV (6.2-12.0) fl Immature Gran % (Auto) (0.0-0.9) % Neut % (Auto) (47-70) % Lymph % (Auto) (19-41) % [place] % (Auto) (0-10) % Eos % (Auto) (0-5) % Baso % (Auto) (0-1) % Absolute Neuts (auto) (2.0-7.7) X10^3/uL Absolute Lymphs (auto) (0.83-4.51) X10^3/uL Nucleated RBC % (0-5) % Differential Comment Diff Path Review Platelet Estimate (ADEQ) [place] Cells Acanthocytes (Spur) Specimen Type Sample Site pH (7.35-7.45) Bicarbonate Actual (22-26) mmol/L POC Total CO2 mmol/L Base Excess (-2 to +2) mmol/L O2 Saturation (95-99) % ABG pCO2 (35-45) mmHg ABG pO2 (75-100) mmHG Anurag Test O2 Delivery Device Blood Gas Notified Whom Blood Gas Notified Time Sodium (136-145) mmol/L Potassium (3.5-5.1) mmol/L Chloride (98-107) mmol/L Carbon Dioxide (21.0-32.0) mmol/L Anion Gap (5-15) BUN (7-18) mg/dL Creatinine (0.70-1.30) mg/dL Estim Creat Clear Calc ml/min Est GFR (MDRD) Af Amer (>60) mL/min Est GFR (MDRD) Non-Af (>60) mL/min BUN/Creatinine Ratio (10-20) RATIO Glucose (74-106) mg/dL Calcium (8.5-10.1) mg/dL Magnesium (1.6-2.6) mg/dL Total Bilirubin (0.20-1.00) mg/dL AST (15-37) U/L ALT (16-61) U/L Alkaline Phosphatase (45-117) U/L Total Protein (6.4-8.2) g/dL Albumin (3.2-5.0) g/dL Globulin (2.2-4.2) g/dL Albumin/Globulin Ratio (0.9-2.4) RATIO Urine Color (Yellow) Urine Clarity (Clear) Urine pH (5.0 - 8.0) Ur Specific [place] (1.002-1.030) Urine Protein (Negative) mg/dl Urine Glucose (UA) (Normal) mg/dl Urine Ketones (Negative) mg/dl Urine Occult Blood (Negative) /ul Urine Nitrite (Negative) Urine Bilirubin (Negative) mg/dL Urine Urobilinogen (Normal) mg/dl Ur Leukocyte Esterase (Negative) /ul Urine RBC (0-5) /hpf Urine WBC (0-5) /hpf Ur Squamous Epith Cells (0-5) /hpf Urine Bacteria (None Seen) /hpf Urine Mucus (<or=2+) /hpf Ethyl Alcohol mg/dL Acetone Level (NEG) POC Glucose 303 H 331 H 341 H (70-110) mg/dL 10/12/19 10/12/19 10/12/19 Range/Units 05:30 05:30 04:53 WBC 20.8 H (4.4-11.0) K/mm3 RBC 3.65 L (4.6-6.2) M/mm3 Hgb 11.4 L (13.0-16.5) g/dL Hct 34.3 L (40-54) % MCV 94.0 D (80-94) fL MCH 31.2 (27.0-32.0) pg MCHC 33.2 (32-36) g/dL RDW Std Deviation 47.2 H (35.1-43.9) fl RDW Coeff of Omayra 13.7 (11.6-14.6) % Plt Count 296 (150-450) K/mm3 MPV 9.7 (6.2-12.0) fl Immature Gran % (Auto) 0.500 (0.0-0.9) % Neut % (Auto) 85.4 H (47-70) % Lymph % (Auto) 6.0 L (19-41) % [place] % (Auto) 8.0 (0-10) % Eos % (Auto) 0.0 (0-5) % Baso % (Auto) 0.1 (0-1) % Absolute Neuts (auto) 17.7 H (2.0-7.7) X10^3/uL Absolute Lymphs (auto) 1.25 (0.83-4.51) X10^3/uL Nucleated RBC % 0 (0-5) % Differential Comment Diff Path Review Reviewed Platelet Estimate (ADEQ) [place] Cells Acanthocytes (Spur) Specimen Type Sample Site pH (7.35-7.45) Bicarbonate Actual (22-26) mmol/L POC Total CO2 mmol/L Base Excess (-2 to +2) mmol/L O2 Saturation (95-99) % ABG pCO2 (35-45) mmHg ABG pO2 (75-100) mmHG Anurag Test O2 Delivery Device Blood Gas Notified Whom Blood Gas Notified Time Sodium 140 (136-145) mmol/L Potassium 4.5 (3.5-5.1) mmol/L Chloride 105 (98-107) mmol/L Carbon Dioxide 20.0 L (21.0-32.0) mmol/L Anion Gap 15 (5-15) BUN 35 H (7-18) mg/dL Creatinine 1.61 H (0.70-1.30) mg/dL Estim Creat Clear Calc 51.96 ml/min Est GFR (MDRD) Af Amer 60 (>60) mL/min Est GFR (MDRD) Non-Af 50 L (>60) mL/min BUN/Creatinine Ratio 21.7 H (10-20) RATIO Glucose 372 H (74-106) mg/dL Calcium 7.9 L (8.5-10.1) mg/dL Magnesium (1.6-2.6) mg/dL Total Bilirubin 0.50 (0.20-1.00) mg/dL AST 27 (15-37) U/L ALT 27 (16-61) U/L Alkaline Phosphatase 104 (45-117) U/L Total Protein 6.7 (6.4-8.2) g/dL Albumin 3.6 (3.2-5.0) g/dL Globulin 3.1 (2.2-4.2) g/dL Albumin/Globulin Ratio 1.2 (0.9-2.4) RATIO Urine Color (Yellow) Urine Clarity (Clear) Urine pH (5.0 - 8.0) Ur Specific [place] (1.002-1.030) Urine Protein (Negative) mg/dl Urine Glucose (UA) (Normal) mg/dl Urine Ketones (Negative) mg/dl Urine Occult Blood (Negative) /ul Urine Nitrite (Negative) Urine Bilirubin (Negative) mg/dL Urine Urobilinogen (Normal) mg/dl Ur Leukocyte Esterase (Negative) /ul Urine RBC (0-5) /hpf Urine WBC (0-5) /hpf Ur Squamous Epith Cells (0-5) /hpf Urine Bacteria (None Seen) /hpf Urine Mucus (<or=2+) /hpf Ethyl Alcohol mg/dL Acetone Level (NEG) POC Glucose 366 H (70-110) mg/dL 10/12/19 10/12/19 10/12/19 Range/Units 04:07 03:05 02:04 WBC (4.4-11.0) K/mm3 RBC (4.6-6.2) M/mm3 Hgb (13.0-16.5) g/dL Hct (40-54) % MCV (80-94) fL MCH (27.0-32.0) pg MCHC (32-36) g/dL RDW Std Deviation (35.1-43.9) fl RDW Coeff of Omayra (11.6-14.6) % Plt Count (150-450) K/mm3 MPV (6.2-12.0) fl Immature Gran % (Auto) (0.0-0.9) % Neut % (Auto) (47-70) % Lymph % (Auto) (19-41) % [place] % (Auto) (0-10) % Eos % (Auto) (0-5) % Baso % (Auto) (0-1) % Absolute Neuts (auto) (2.0-7.7) X10^3/uL Absolute Lymphs (auto) (0.83-4.51) X10^3/uL Nucleated RBC % (0-5) % Differential Comment Diff Path Review Platelet Estimate (ADEQ) [place] Cells Acanthocytes (Spur) Specimen Type Sample Site pH (7.35-7.45) Bicarbonate Actual (22-26) mmol/L POC Total CO2 mmol/L Base Excess (-2 to +2) mmol/L O2 Saturation (95-99) % ABG pCO2 (35-45) mmHg ABG pO2 (75-100) mmHG Anurag Test O2 Delivery Device Blood Gas Notified Whom Blood Gas Notified Time Sodium (136-145) mmol/L Potassium (3.5-5.1) mmol/L Chloride (98-107) mmol/L Carbon Dioxide (21.0-32.0) mmol/L Anion Gap (5-15) BUN (7-18) mg/dL Creatinine (0.70-1.30) mg/dL Estim Creat Clear Calc ml/min Est GFR (MDRD) Af Amer (>60) mL/min Est GFR (MDRD) Non-Af (>60) mL/min BUN/Creatinine Ratio (10-20) RATIO Glucose (74-106) mg/dL Calcium (8.5-10.1) mg/dL Magnesium (1.6-2.6) mg/dL Total Bilirubin (0.20-1.00) mg/dL AST (15-37) U/L ALT (16-61) U/L Alkaline Phosphatase (45-117) U/L Total Protein (6.4-8.2) g/dL Albumin (3.2-5.0) g/dL Globulin (2.2-4.2) g/dL Albumin/Globulin Ratio (0.9-2.4) RATIO Urine Color (Yellow) Urine Clarity (Clear) Urine pH (5.0 - 8.0) Ur Specific [place] (1.002-1.030) Urine Protein (Negative) mg/dl Urine Glucose (UA) (Normal) mg/dl Urine Ketones (Negative) mg/dl Urine Occult Blood (Negative) /ul Urine Nitrite (Negative) Urine Bilirubin (Negative) mg/dL Urine Urobilinogen (Normal) mg/dl Ur Leukocyte Esterase (Negative) /ul Urine RBC (0-5) /hpf Urine WBC (0-5) /hpf Ur Squamous Epith Cells (0-5) /hpf Urine Bacteria (None Seen) /hpf Urine Mucus (<or=2+) /hpf Ethyl Alcohol mg/dL Acetone Level (NEG) POC Glucose 350 H 382 H 451 H* (70-110) mg/dL 10/12/19 10/12/19 10/11/19 Range/Units 00:40 00:39 22:50 WBC (4.4-11.0) K/mm3 RBC (4.6-6.2) M/mm3 Hgb (13.0-16.5) g/dL Hct (40-54) % MCV (80-94) fL MCH (27.0-32.0) pg MCHC (32-36) g/dL RDW Std Deviation (35.1-43.9) fl RDW Coeff of Omayra (11.6-14.6) % Plt Count (150-450) K/mm3 MPV (6.2-12.0) fl Immature Gran % (Auto) (0.0-0.9) % Neut % (Auto) (47-70) % Lymph % (Auto) (19-41) % [place] % (Auto) (0-10) % Eos % (Auto) (0-5) % Baso % (Auto) (0-1) % Absolute Neuts (auto) (2.0-7.7) X10^3/uL Absolute Lymphs (auto) (0.83-4.51) X10^3/uL Nucleated RBC % (0-5) % Differential Comment Diff Path Review Platelet Estimate (ADEQ) Kristal Cells Acanthocytes (Spur) Specimen Type Sample Site pH (7.35-7.45) Bicarbonate Actual (22-26) mmol/L POC Total CO2 mmol/L Base Excess (-2 to +2) mmol/L O2 Saturation (95-99) % ABG pCO2 (35-45) mmHg ABG pO2 (75-100) mmHG Anurag Test O2 Delivery Device Blood Gas Notified Whom Blood Gas Notified Time Sodium 137 (136-145) mmol/L Potassium 4.1 (3.5-5.1) mmol/L Chloride 102 (98-107) mmol/L Carbon Dioxide 15.0 L (21.0-32.0) mmol/L Anion Gap 20 H (5-15) BUN 40 H (7-18) mg/dL Creatinine 1.67 H (0.70-1.30) mg/dL Estim Creat Clear Calc 48.40 ml/min Est GFR (MDRD) Af Amer 58 L (>60) mL/min Est GFR (MDRD) Non-Af 48 L (>60) mL/min BUN/Creatinine Ratio 24.0 H (10-20) RATIO Glucose 528 H* 589 H* (74-106) mg/dL Calcium 7.6 L (8.5-10.1) mg/dL Magnesium (1.6-2.6) mg/dL Total Bilirubin (0.20-1.00) mg/dL AST (15-37) U/L ALT (16-61) U/L Alkaline Phosphatase (45-117) U/L Total Protein (6.4-8.2) g/dL Albumin (3.2-5.0) g/dL Globulin (2.2-4.2) g/dL Albumin/Globulin Ratio (0.9-2.4) RATIO Urine Color (Yellow) Urine Clarity (Clear) Urine pH (5.0 - 8.0) Ur Specific [place] (1.002-1.030) Urine Protein (Negative) mg/dl Urine Glucose (UA) (Normal) mg/dl Urine Ketones (Negative) mg/dl Urine Occult Blood (Negative) /ul Urine Nitrite (Negative) Urine Bilirubin (Negative) mg/dL Urine Urobilinogen (Normal) mg/dl Ur Leukocyte Esterase (Negative) /ul Urine RBC (0-5) /hpf Urine WBC (0-5) /hpf Ur Squamous Epith Cells (0-5) /hpf Urine Bacteria (None Seen) /hpf Urine Mucus (<or=2+) /hpf Ethyl Alcohol mg/dL Acetone Level (NEG) POC Glucose 493 H* (70-110) mg/dL 10/11/19 10/11/19 10/11/19 Range/Units 22:45 21:52 20:55 WBC (4.4-11.0) K/mm3 RBC (4.6-6.2) M/mm3 Hgb (13.0-16.5) g/dL Hct (40-54) % MCV (80-94) fL MCH (27.0-32.0) pg MCHC (32-36) g/dL RDW Std Deviation (35.1-43.9) fl RDW Coeff of Omayra (11.6-14.6) % Plt Count (150-450) K/mm3 MPV (6.2-12.0) fl Immature Gran % (Auto) (0.0-0.9) % Neut % (Auto) (47-70) % Lymph % (Auto) (19-41) % [place] % (Auto) (0-10) % Eos % (Auto) (0-5) % Baso % (Auto) (0-1) % Absolute Neuts (auto) (2.0-7.7) X10^3/uL Absolute Lymphs (auto) (0.83-4.51) X10^3/uL Nucleated RBC % (0-5) % Differential Comment Diff Path Review Platelet Estimate (ADEQ) Kristal Cells Acanthocytes (Spur) Specimen Type Sample Site pH (7.35-7.45) Bicarbonate Actual (22-26) mmol/L POC Total CO2 mmol/L Base Excess (-2 to +2) mmol/L O2 Saturation (95-99) % ABG pCO2 (35-45) mmHg ABG pO2 (75-100) mmHG Anurag Test O2 Delivery Device Blood Gas Notified Whom Blood Gas Notified Time Sodium 133 L (136-145) mmol/L Potassium 4.2 (3.5-5.1) mmol/L Chloride 97 L (98-107) mmol/L Carbon Dioxide 9.0 L* (21.0-32.0) mmol/L Anion Gap 27 H (5-15) BUN 43 H (7-18) mg/dL Creatinine 1.77 H (0.70-1.30) mg/dL Estim Creat Clear Calc 45.67 ml/min Est GFR (MDRD) Af Amer 54 L (>60) mL/min Est GFR (MDRD) Non-Af 45 L (>60) mL/min BUN/Creatinine Ratio 24.3 H (10-20) RATIO Glucose 626 H* (74-106) mg/dL Calcium 7.8 L (8.5-10.1) mg/dL Magnesium (1.6-2.6) mg/dL Total Bilirubin (0.20-1.00) mg/dL AST (15-37) U/L ALT (16-61) U/L Alkaline Phosphatase (45-117) U/L Total Protein (6.4-8.2) g/dL Albumin (3.2-5.0) g/dL Globulin (2.2-4.2) g/dL Albumin/Globulin Ratio (0.9-2.4) RATIO Urine Color (Yellow) Urine Clarity (Clear) Urine pH (5.0 - 8.0) Ur Specific [place] (1.002-1.030) Urine Protein (Negative) mg/dl Urine Glucose (UA) (Normal) mg/dl Urine Ketones (Negative) mg/dl Urine Occult Blood (Negative) /ul Urine Nitrite (Negative) Urine Bilirubin (Negative) mg/dL Urine Urobilinogen (Normal) mg/dl Ur Leukocyte Esterase (Negative) /ul Urine RBC (0-5) /hpf Urine WBC (0-5) /hpf Ur Squamous Epith Cells (0-5) /hpf Urine Bacteria (None Seen) /hpf Urine Mucus (<or=2+) /hpf Ethyl Alcohol mg/dL Acetone Level (NEG) POC Glucose > 500 H* > 500 H* (70-110) mg/dL 10/11/19 10/11/1919 Range/Units 20:49 19:40 19:30 WBC (4.4-11.0) K/mm3 RBC (4.6-6.2) M/mm3 Hgb (13.0-16.5) g/dL Hct (40-54) % MCV (80-94) fL MCH (27.0-32.0) pg MCHC (32-36) g/dL RDW Std Deviation (35.1-43.9) fl RDW Coeff of Omayra (11.6-14.6) % Plt Count (150-450) K/mm3 MPV (6.2-12.0) fl Immature Gran % (Auto) (0.0-0.9) % Neut % (Auto) (47-70) % Lymph % (Auto) (19-41) % [place] % (Auto) (0-10) % Eos % (Auto) (0-5) % Baso % (Auto) (0-1) % Absolute Neuts (auto) (2.0-7.7) X10^3/uL Absolute Lymphs (auto) (0.83-4.51) X10^3/uL Nucleated RBC % (0-5) % Differential Comment Diff Path Review Platelet Estimate (ADEQ) Kristal Cells Acanthocytes (Spur) Specimen Type Sample Site pH (7.35-7.45) Bicarbonate Actual (22-26) mmol/L POC Total CO2 mmol/L Base Excess (-2 to +2) mmol/L O2 Saturation (95-99) % ABG pCO2 (35-45) mmHg ABG pO2 (75-100) mmHG Anurag Test O2 Delivery Device Blood Gas Notified Whom Blood Gas Notified Time Sodium (136-145) mmol/L Potassium (3.5-5.1) mmol/L Chloride (98-107) mmol/L Carbon Dioxide (21.0-32.0) mmol/L Anion Gap (5-15) BUN (7-18) mg/dL Creatinine (0.70-1.30) mg/dL Estim Creat Clear Calc ml/min Est GFR (MDRD) Af Amer (>60) mL/min Est GFR (MDRD) Non-Af (>60) mL/min BUN/Creatinine Ratio (10-20) RATIO Glucose 654 H* (74-106) mg/dL Calcium (8.5-10.1) mg/dL Magnesium (1.6-2.6) mg/dL Total Bilirubin (0.20-1.00) mg/dL AST (15-37) U/L ALT (16-61) U/L Alkaline Phosphatase (45-117) U/L Total Protein (6.4-8.2) g/dL Albumin (3.2-5.0) g/dL Globulin (2.2-4.2) g/dL Albumin/Globulin Ratio (0.9-2.4) RATIO Urine Color (Yellow) Urine Clarity (Clear) Urine pH (5.0 - 8.0) Ur Specific [place] (1.002-1.030) Urine Protein (Negative) mg/dl Urine Glucose (UA) (Normal) mg/dl Urine Ketones (Negative) mg/dl Urine Occult Blood (Negative) /ul Urine Nitrite (Negative) Urine Bilirubin (Negative) mg/dL Urine Urobilinogen (Normal) mg/dl Ur Leukocyte Esterase (Negative) /ul Urine RBC (0-5) /hpf Urine WBC (0-5) /hpf Ur Squamous Epith Cells (0-5) /hpf Urine Bacteria (None Seen) /hpf Urine Mucus (<or=2+) /hpf Ethyl Alcohol mg/dL Acetone Level (NEG) POC Glucose > 500 H* > 500 H* (70-110) mg/dL 10/11/19 10/11/19 10/11/19 Range/Units 18:05 16:40 15:00 WBC (4.4-11.0) K/mm3 RBC (4.6-6.2) M/mm3 Hgb (13.0-16.5) g/dL Hct (40-54) % MCV (80-94) fL MCH (27.0-32.0) pg MCHC (32-36) g/dL RDW Std Deviation (35.1-43.9) fl RDW Coeff of Omayra (11.6-14.6) % Plt Count (150-450) K/mm3 MPV (6.2-12.0) fl Immature Gran % (Auto) (0.0-0.9) % Neut % (Auto) (47-70) % Lymph % (Auto) (19-41) % [place] % (Auto) (0-10) % Eos % (Auto) (0-5) % Baso % (Auto) (0-1) % Absolute Neuts (auto) (2.0-7.7) X10^3/uL Absolute Lymphs (auto) (0.83-4.51) X10^3/uL Nucleated RBC % (0-5) % Differential Comment Diff Path Review Platelet Estimate (ADEQ) [place] Cells Acanthocytes (Spur) Specimen Type Sample Site pH (7.35-7.45) Bicarbonate Actual (22-26) mmol/L POC Total CO2 mmol/L Base Excess (-2 to +2) mmol/L O2 Saturation (95-99) % ABG pCO2 (35-45) mmHg ABG pO2 (75-100) mmHG Anurag Test O2 Delivery Device Blood Gas Notified Whom Blood Gas Notified Time Sodium 127 L (136-145) mmol/L Potassium 3.8 (3.5-5.1) mmol/L Chloride 87 L (98-107) mmol/L Carbon Dioxide 9.0 L* (21.0-32.0) mmol/L Anion Gap 31 H (5-15) BUN 43 H (7-18) mg/dL Creatinine 1.96 H (0.70-1.30) mg/dL Estim Creat Clear Calc 41.24 ml/min Est GFR (MDRD) Af Amer 48 L (>60) mL/min Est GFR (MDRD) Non-Af 40 L (>60) mL/min BUN/Creatinine Ratio 21.9 H (10-20) RATIO Glucose 721 H* 833 H* (74-106) mg/dL Calcium 8.0 L (8.5-10.1) mg/dL Magnesium (1.6-2.6) mg/dL Total Bilirubin (0.20-1.00) mg/dL AST (15-37) U/L ALT (16-61) U/L Alkaline Phosphatase (45-117) U/L Total Protein (6.4-8.2) g/dL Albumin (3.2-5.0) g/dL Globulin (2.2-4.2) g/dL Albumin/Globulin Ratio (0.9-2.4) RATIO Urine Color Yellow (Yellow) Urine Clarity Sl. Cloudy (Clear) Urine pH 5.0 (5.0 - 8.0) Ur Specific [place] 1.015 (1.002-1.030) Urine Protein Negative (Negative) mg/dl Urine Glucose (UA) 1000 H (Normal) mg/dl Urine Ketones 150 H (Negative) mg/dl Urine Occult Blood Negative (Negative) /ul Urine Nitrite Negative (Negative) Urine Bilirubin Negative (Negative) mg/dL Urine Urobilinogen Normal (Normal) mg/dl Ur Leukocyte Esterase Negative (Negative) /ul Urine RBC 0 SEEN (0-5) /hpf Urine WBC 0 SEEN (0-5) /hpf Ur Squamous Epith Cells 0-5 SEEN (0-5) /hpf Urine Bacteria 0 SEEN (None Seen) /hpf Urine Mucus 0 SEEN (<or=2+) /hpf Ethyl Alcohol mg/dL Acetone Level (NEG) POC Glucose (70-110) mg/dL 10/11/19 10/11/19 10/11/19 Range/Units 15:00 14:47 14:20 WBC (4.4-11.0) K/mm3 RBC (4.6-6.2) M/mm3 Hgb (13.0-16.5) g/dL Hct (40-54) % MCV (80-94) fL MCH (27.0-32.0) pg MCHC (32-36) g/dL RDW Std Deviation (35.1-43.9) fl RDW Coeff of Omayra (11.6-14.6) % Plt Count (150-450) K/mm3 MPV (6.2-12.0) fl Immature Gran % (Auto) (0.0-0.9) % Neut % (Auto) (47-70) % Lymph % (Auto) (19-41) % [place] % (Auto) (0-10) % Eos % (Auto) (0-5) % Baso % (Auto) (0-1) % Absolute Neuts (auto) (2.0-7.7) X10^3/uL Absolute Lymphs (auto) (0.83-4.51) X10^3/uL Nucleated RBC % (0-5) % Differential Comment Diff Path Review Platelet Estimate (ADEQ) [place] Cells Acanthocytes (Spur) Specimen Type ART Sample Site R Brachial pH 7.21 L (7.35-7.45) Bicarbonate Actual 5.3 L (22-26) mmol/L POC Total CO2 6 mmol/L Base Excess -23 L (-2 to +2) mmol/L O2 Saturation 98 (95-99) % ABG pCO2 13.4 L* (35-45) mmHg ABG pO2 122 H (75-100) mmHG Anurag Test NA O2 Delivery Device Room Air Blood Gas Notified Whom ED Blood Gas Notified Time 1416 Sodium 125 L (136-145) mmol/L Potassium 4.7 (3.5-5.1) mmol/L Chloride 85 L (98-107) mmol/L Carbon Dioxide 7.0 L* (21.0-32.0) mmol/L Anion Gap 33 H (5-15) BUN 43 H (7-18) mg/dL Creatinine 2.05 H (0.70-1.30) mg/dL Estim Creat Clear Calc 41.86 ml/min Est GFR (MDRD) Af Amer 46 L (>60) mL/min Est GFR (MDRD) Non-Af 38 L (>60) mL/min BUN/Creatinine Ratio 21.0 H (10-20) RATIO Glucose 956 H* (74-106) mg/dL Calcium 8.1 L (8.5-10.1) mg/dL Magnesium (1.6-2.6) mg/dL Total Bilirubin (0.20-1.00) mg/dL AST (15-37) U/L ALT (16-61) U/L Alkaline Phosphatase (45-117) U/L Total Protein (6.4-8.2) g/dL Albumin (3.2-5.0) g/dL Globulin (2.2-4.2) g/dL Albumin/Globulin Ratio (0.9-2.4) RATIO Urine Color (Yellow) Urine Clarity (Clear) Urine pH (5.0 - 8.0) Ur Specific [place] (1.002-1.030) Urine Protein (Negative) mg/dl Urine Glucose (UA) (Normal) mg/dl Urine Ketones (Negative) mg/dl Urine Occult Blood (Negative) /ul Urine Nitrite (Negative) Urine Bilirubin (Negative) mg/dL Urine Urobilinogen (Normal) mg/dl Ur Leukocyte Esterase (Negative) /ul Urine RBC (0-5) /hpf Urine WBC (0-5) /hpf Ur Squamous Epith Cells (0-5) /hpf Urine Bacteria (None Seen) /hpf Urine Mucus (<or=2+) /hpf Ethyl Alcohol mg/dL Acetone Level (NEG) POC Glucose > 500 H* (70-110) mg/dL 10/11/19 10/11/19 10/11/19 Range/Units 13:25 13:25 13:25 WBC (4.4-11.0) K/mm3 RBC (4.6-6.2) M/mm3 Hgb (13.0-16.5) g/dL Hct (40-54) % MCV (80-94) fL MCH (27.0-32.0) pg MCHC (32-36) g/dL RDW Std Deviation (35.1-43.9) fl RDW Coeff of Omayra (11.6-14.6) % Plt Count (150-450) K/mm3 MPV (6.2-12.0) fl Immature Gran % (Auto) (0.0-0.9) % Neut % (Auto) (47-70) % Lymph % (Auto) (19-41) % [place] % (Auto) (0-10) % Eos % (Auto) (0-5) % Baso % (Auto) (0-1) % Absolute Neuts (auto) (2.0-7.7) X10^3/uL Absolute Lymphs (auto) (0.83-4.51) X10^3/uL Nucleated RBC % (0-5) % Differential Comment Diff Path Review Platelet Estimate (ADEQ) [place] Cells Acanthocytes (Spur) Specimen Type Sample Site pH (7.35-7.45) Bicarbonate Actual (22-26) mmol/L POC Total CO2 mmol/L Base Excess (-2 to +2) mmol/L O2 Saturation (95-99) % ABG pCO2 (35-45) mmHg ABG pO2 (75-100) mmHG Anurag Test O2 Delivery Device Blood Gas Notified Whom Blood Gas Notified Time Sodium 121 L (136-145) mmol/L Potassium 5.9 H (3.5-5.1) mmol/L Chloride 78 L (98-107) mmol/L Carbon Dioxide 5.0 L* (21.0-32.0) mmol/L Anion Gap 38 H (5-15) BUN 44 H (7-18) mg/dL Creatinine 2.02 H (0.70-1.30) mg/dL Estim Creat Clear Calc 42.48 ml/min Est GFR (MDRD) Af Amer 47 L (>60) mL/min Est GFR (MDRD) Non-Af 38 L (>60) mL/min BUN/Creatinine Ratio 21.8 H (10-20) RATIO Glucose 1123 H* (74-106) mg/dL Calcium 8.9 (8.5-10.1) mg/dL Magnesium 2.6 (1.6-2.6) mg/dL Total Bilirubin (0.20-1.00) mg/dL AST (15-37) U/L ALT (16-61) U/L Alkaline Phosphatase (45-117) U/L Total Protein (6.4-8.2) g/dL Albumin (3.2-5.0) g/dL Globulin (2.2-4.2) g/dL Albumin/Globulin Ratio (0.9-2.4) RATIO Urine Color (Yellow) Urine Clarity (Clear) Urine pH (5.0 - 8.0) Ur Specific [place] (1.002-1.030) Urine Protein (Negative) mg/dl Urine Glucose (UA) (Normal) mg/dl Urine Ketones (Negative) mg/dl Urine Occult Blood (Negative) /ul Urine Nitrite (Negative) Urine Bilirubin (Negative) mg/dL Urine Urobilinogen (Normal) mg/dl Ur Leukocyte Esterase (Negative) /ul Urine RBC (0-5) /hpf Urine WBC (0-5) /hpf Ur Squamous Epith Cells (0-5) /hpf Urine Bacteria (None Seen) /hpf Urine Mucus (<or=2+) /hpf Ethyl Alcohol < 3.0 mg/dL Acetone Level LARGE H (NEG) POC Glucose (70-110) mg/dL 10/11/19 10/11/19 Range/Units 13:25 12:53 WBC 30.9 H* (4.4-11.0) K/mm3 RBC 3.72 L (4.6-6.2) M/mm3 Hgb 11.6 L (13.0-16.5) g/dL Hct 36.9 L (40-54) % MCV 99.2 H (80-94) fL MCH 31.2 (27.0-32.0) pg MCHC 31.4 L (32-36) g/dL RDW Std Deviation 50.8 H (35.1-43.9) fl RDW Coeff of Omayra 14.1 (11.6-14.6) % Plt Count 423 (150-450) K/mm3 MPV 10.6 (6.2-12.0) fl Immature Gran % (Auto) 1.400 H (0.0-0.9) % Neut % (Auto) 82.1 H (47-70) % Lymph % (Auto) 6.7 L (19-41) % [place] % (Auto) 9.1 (0-10) % Eos % (Auto) 0.4 (0-5) % Baso % (Auto) 0.3 (0-1) % Absolute Neuts (auto) 25.4 H (2.0-7.7) X10^3/uL Absolute Lymphs (auto) 2.07 (0.83-4.51) X10^3/uL Nucleated RBC % 0 (0-5) % Differential Comment SCANNED Diff Path Review Reviewed Platelet Estimate ADEQUATE (ADEQ) Kristal Cells 1+ Acanthocytes (Spur) RARE Specimen Type Sample Site pH (7.35-7.45) Bicarbonate Actual (22-26) mmol/L POC Total CO2 mmol/L Base Excess (-2 to +2) mmol/L O2 Saturation (95-99) % ABG pCO2 (35-45) mmHg ABG pO2 (75-100) mmHG Anurag Test O2 Delivery Device Blood Gas Notified Whom Blood Gas Notified Time Sodium (136-145) mmol/L Potassium (3.5-5.1) mmol/L Chloride (98-107) mmol/L Carbon Dioxide (21.0-32.0) mmol/L Anion Gap (5-15) BUN (7-18) mg/dL Creatinine (0.70-1.30) mg/dL Estim Creat Clear Calc ml/min Est GFR (MDRD) Af Amer (>60) mL/min Est GFR (MDRD) Non-Af (>60) mL/min BUN/Creatinine Ratio (10-20) RATIO Glucose (74-106) mg/dL Calcium (8.5-10.1) mg/dL Magnesium (1.6-2.6) mg/dL Total Bilirubin (0.20-1.00) mg/dL AST (15-37) U/L ALT (16-61) U/L Alkaline Phosphatase (45-117) U/L Total Protein (6.4-8.2) g/dL Albumin (3.2-5.0) g/dL Globulin (2.2-4.2) g/dL Albumin/Globulin Ratio (0.9-2.4) RATIO Urine Color (Yellow) Urine Clarity (Clear) Urine pH (5.0 - 8.0) Ur Specific [place] (1.002-1.030) Urine Protein (Negative) mg/dl Urine Glucose (UA) (Normal) mg/dl Urine Ketones (Negative) mg/dl Urine Occult Blood (Negative) /ul Urine Nitrite (Negative) Urine Bilirubin (Negative) mg/dL Urine Urobilinogen (Normal) mg/dl Ur Leukocyte Esterase (Negative) /ul Urine RBC (0-5) /hpf Urine WBC (0-5) /hpf Ur Squamous Epith Cells (0-5) /hpf Urine Bacteria (None Seen) /hpf Urine Mucus (<or=2+) /hpf Ethyl Alcohol mg/dL Acetone Level (NEG) POC Glucose > 500 H* (70-110) mg/dL Current Medications Atorvastatin Calcium (Lipitor) 20 mg PO DAILY [facility] Last Admin: 10/15/19 09:41 Dose: 20 mg Documented by: Bupropion HCl (Wellbutrin Xl) 150 mg PO DAILY [facility] Last Admin: 10/15/19 09:40 Dose: 150 mg Documented by: Carvedilol (Coreg) 3.125 mg PO BID [facility] Last Admin: 10/15/19 09:41 Dose: 3.125 mg Documented by: Dextrose (D50w Syringe) 0 gm IV X1 PRN; Protocol PRN Reason: HYPOGLYCEMIA Dextrose (D50w Syringe) 0 gm IV X1 PRN; Protocol PRN Reason: Hypoglycemia Folic Acid (Folic Acid) 1 mg PO DAILY@0800 [facility] Last Admin: 10/15/19 07:50 Dose: 1 mg Documented by: Glucagon () 1 mg IM .X1 PRN PRN Reason: Hypoglycemia Sodium Chloride () 250 mls @ 15 mls/hr IV .[id number] PRN PRN Reason: Saline Flush Insulin Glargine (Lantus (Bk)) 25 units SC BREAKFAST [facility] Last Admin: 10/15/19 07:50 Dose: 25 u Documented by: Insulin Glargine (Lantus (Bk)) 20 units SC QHS [facility] Last Admin: 10/14/19 21:19 Dose: 20 units Documented by: Insulin Human Lispro (Humalog Kwikpen ([facility])) 0 unit SC ACHS [facility]; Protocol Last Admin: 10/15/19 06:32 Dose: 9 units Documented by: Levetiracetam (Keppra Tablet) 1,500 mg PO BID [facility] Last Admin: 10/15/19 09:41 Dose: 1,500 mg Documented by: Lisinopril (Zestril) 2.5 mg PO DAILY [facility] Last Admin: 10/15/19 09:40 Dose: 2.5 mg Documented by: Magnesium Oxide (Mag-Ox 400) 400 mg PO DAILY [facility] Last Admin: 10/15/19 09:40 Dose: 400 mg Documented by: Melatonin (Melatonin) 6 mg PO QHS [facility] Last Admin: 10/14/19 21:18 Dose: 6 mg Documented by: Mirtazapine (Remeron) 30 mg PO QHS [facility] Last Admin: 10/14/19 21:19 Dose: 30 mg Documented by: Nicotine (Nicoderm Cq ([facility])) 21 mg TRANSDERM. DAILY [facility] Last Admin: 10/15/19 07:50 Dose: 21 mg Documented by: Ondansetron HCl (Zofran) 4 mg IV Q8H PRN PRN PRN Reason: NAUSEA/VOMITING Sodium Chloride () 10 - 40 ml IV UD PRN PRN Reason: SALINE FLUSH Last Admin: 10/12/19 04:57 Dose: 40 ml Documented by: Thiamine HCl (Vitamin B1) 100 mg PO DAILY [facility] Last Admin: 10/15/19 09:40 Dose: 100 mg Documented by: Tramadol HCl (Ultram) 100 mg PO Q6H PRN PRN PRN Reason: Headache Last Admin: 10/15/19 03:25 Dose: 100 mg Documented by: Discharge Diet: 1800 Calorie Control Diet Discharge Activity: Return to Normal Activity Weight Bearing Status: Weight bearing as tolerated Call your doctor if you observe: Fever of 101 or Higher, Shortness of breath, - - low blood sugars Home Medications: Medications to take at Discharge levetiracetam 500 mg tablet 1,500 mg PO BID 01/18/18 mirtazapine 15 mg tablet 30 mg PO QHS 01/18/18 Folic Acid 1 tab PO DAILY 30 Days #30 tab 04/16/19 Atorvastatin Calcium 20 mg PO DAILY 04/22/19 Lisinopril [Zestril] 2.5 mg PO QDAY 04/24/19 Carvedilol 3.125 mg PO BID 05/13/19 Bupropion HCl [Bupropion Xl] 150 mg PO DAILY 09/17/19 Melatonin 6 mg PO QHS 09/17/19 Thiamine HCl [Vitamin B-1] 100 mg PO DAILY 09/17/19 Magnesium Oxide 400 mg PO DAILY 10/11/19 Oxycodone [Oxyir] 5 mg PO TID PRN PRN 10/11/19 Insulin Lispro [Humalog KwikPen] 0 unit SQ 10/12/19 Insulin Glargine [Lantus SoloStar Pen] 25 units SUBCUT UD #10 pen 10/15/19 Following Prescrptions Were Given to Patient: Insulin Glargine [Lantus SoloStar Pen] 25 units SUBCUT UD #10 pen Transmission Status: Received by [facility]/pharmacy #[id number] Primary Care Physician: Moni Cintron MD [Primary Care Provider] - Please follow up with your Primary Care Physician in: one week Please Follow Up With: Aris Nelson MD When: 1-2 weeks Patient Instructions: How to Check Your Blood Sugar, Types of Insulin Disposition: Home Minutes spent on discharge:: 40 Patient Condition:: Stable Medical Necessity - Tobacco Use Smoking Status: Current every day smoker Tobacco Use: Cigarettes Meaningful Use Info Meaningful Use Diagnoses (Choose all that apply): None applicable Code Visit Inpatient E&M: 64925 Disch Hosp
--- NOTE | 2019-10-15 11:05 | PHA.DC.MR ---
Pharmacy Service has performed discharge medication reconciliation for this patient. Home Medications levetiracetam 500 mg tablet 1,500 mg PO BID 01/18/18 mirtazapine 15 mg tablet 30 mg PO QHS 01/18/18 Folic Acid 1 tab PO DAILY 30 Days #30 tab 04/16/19 Atorvastatin Calcium 20 mg PO DAILY 04/22/19 Lisinopril [Zestril] 2.5 mg PO QDAY 04/24/19 Carvedilol 3.125 mg PO BID 05/13/19 Bupropion HCl [Bupropion Xl] 150 mg PO DAILY 09/17/19 Melatonin 6 mg PO QHS 09/17/19 Thiamine HCl [Vitamin B-1] 100 mg PO DAILY 09/17/19 Magnesium Oxide 400 mg PO DAILY 10/11/19 Oxycodone [Oxyir] 5 mg PO TID PRN PRN 10/11/19 Insulin Lispro [Humalog KwikPen] 0 unit SQ 10/12/19 Insulin Glargine [Lantus SoloStar Pen] 25 units SUBCUT UD #10 pen 10/15/19 The patient's discharge medication list was reviewed for discrepancies and discrepancies were resolved.
--- NOTE | 2019-10-16 14:39 | CASEMGMT ---
TEODORO LAWLER Discharge Follow-Up Phone Call. Lace: 16 Strata: 4 Discharge Date: 10/15/19 Adm Dx: DKA Attempted discharge follow-up phone call. No answer. Message left for pt to return call to WINE STEWARD/STEWARDESSJina VALERIO CM, if he has any questions/concerns re: discharge instructions, follow-up appts or any other needs. Phone number provided. Petr MARTINEZ RN, CM
== END 2019-10-15 11:22 | disposition home or self-care (01) | DRG 637 ==
LOC: ED 13:13 → ICU 15:19 → PCU 10-13 10:24 → ICU 10-15 07:11 → PCU 10-15 07:11
PROVIDERS: Internal Medicine; Internal Medicine Critical Care Medicine; Admitting Provider Internal Medicine; Emergency Provider Emergency Medicine; Family Provider Internal Medicine; PCP Internal Medicine; Referring Provider Internal Medicine; Visit Provider Student in an Organized Health Care Education/Training Program
DX: E10.10 Type 1 diabetes mellitus with ketoacidosis without coma (principal); G93.41 Metabolic encephalopathy; E87.1 Hypo-osmolality and hyponatremia; N17.9 Acute kidney failure, unspecified; R56.1 Post traumatic seizures; I42.6 Alcoholic cardiomyopathy; E44.0 Moderate protein-calorie malnutrition; Z68.1 Body mass index [BMI] 19.9 or less, adult; E87.5 Hyperkalemia; Z79.4 Long term (current) use of insulin; F10.20 Alcohol dependence, uncomplicated; Z91.14 Patient's other noncompliance with medication regimen; S06.5X9D Traumatic subdural hemorrhage with loss of consciousness of unspecified duration, subsequent encounter; W19.XXXD Unspecified fall, subsequent encounter; I10 Essential (primary) hypertension; F32.9 Major depressive disorder, single episode, unspecified; F41.9 Anxiety disorder, unspecified; F17.210 Nicotine dependence, cigarettes, uncomplicated
CPT/HCPCS: 36415; 36600; 51702; 70450; 80048; 80053; 80320; 81001; 82009; 82803; 82947; 82962; 83735; 85025; 93005; 97110; 97162; 97165; 97530; 97802; 97803; 99285; J7030; A4216; G0480; J2405

== ENCOUNTER 2019-10-18 02:36 | Emergency (ER) | payer MEDICARE, MEDICAID, SELFPAY ==
[2019-10-15 13:48] VITALS: BMI 17.1
[2019-10-18 02:38] VITALS: BP 124/109; PULSE 105; RESP 18; TEMP 37.3; O2SAT 98
--- NOTE | 2019-10-18 02:52 | CT_ITS ---
STUDY: CT BRAIN WITHOUT CONTRAST REASON FOR EXAM: Male, 44 years old. Seizures with hypertension. History of diabetes, brain injury and residual subdural hematoma. RADIATION DOSAGE (If Supplied By Facility): CTDIvol = ( 44.99 ) mGy, DLP = ( 829.85 ) mGycm TECHNIQUE: Transaxial CT imaging of the brain was performed without administration of intravenous contrast material. Individualized dose optimization techniques were used for this CT. COMPARISON: 10/11/2019. FINDINGS: Normal soft tissue structures. Redemonstrated is evidence of right-sided craniotomy, stable. There is mild cerebral atrophy with widening of the extra-axial spaces and ventricular dilatation. There is stable right-sided frontoparietal subdural fluid collection measuring approximately 4.5 mm in maximum thickness. There is no significant mass effect/midline shift. Otherwise normal white matter tracts of the cerebral hemispheres. Normal basal ganglia and thalami. Normal brainstem. Normal cerebellum. There are no findings of an acute ischemic infarction. Normal visualized paranasal sinuses. CT/Brain/Head without Contrast IMPRESSION: Stable right-sided subdural collection as described above with no new sites of acute hemorrhage. Stable postoperative changes on the right. Electronically Signed: Sarah Peterson MD at 3:37 EST , Service support ,
--- NOTE | 2019-10-18 02:54 | ED.DCSUM_ITS ---
History of Present Illness Chief Complaint: Seizure Informant: Patient, Court Monitor Narrative: Patient brought in by squad. Reported laying in the middle the road. 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 He was found this way. EMS reported he has seizure activity and stopped prior to them doing any treatments. Patient stated had a seizure in the shower today. He is on Keppra. He had a evacuation of intracranial hemorrhage subdural hematoma at [facility] approximately a month ago. This was from a fall. Patient is not on any blood thinners at this time. Patient has difficulty giving history secondary to his chronic TBI which is his normal baseline. Blood sugar was obtained and is 127. Patient denies any complaints at this time. No loss of bowel or bladder function. Denies any injury. - Past Medical History (1) Acute kidney injury Status: Acute (2) Altered mental status Status: Acute (3) DKA (diabetic ketoacidoses) Status: Acute (4) Alcoholic cardiomyopathy Status: Chronic (5) Anxiety and depression Status: Chronic (6) Diabetes type 1, uncontrolled Status: Chronic Comment: DKA w/ encephalopathy 03/2019 (7) Nicotine dependence Status: Chronic (8) Tobacco dependence Status: Chronic Past Medical History - Allergies and Home Meds Allergies/Adverse Reactions: Allergies zinc Allergy (Intermediate, Verified 10/18/19 02:41) [facility] Care Physician: Moni Cintron MD [Primary Care Provider] - Prior records reviewed: Yes Past Medical History: - - See problem list Surgical History: noncontributory, - - Craniotomy with evacuation of intracranial hemorrhage Smoking Status: Current every day smoker Alcohol: Sober Drugs: None - Family History Maternal Family History: Family History (Last Reviewed 08/29/19 @ 04:58 by Enrique Gaitan MD) Mother Arthritis Father Diabetes Grandfather Diabetes Grandmother Diabetes Family History: Reports: No pertinent history Paternal Family History: Family History (Last Reviewed 08/29/19 @ 04:58 by Enrique Gaitan MD) Mother Arthritis Father Diabetes Grandfather Diabetes Grandmother Diabetes Family History: Reports: No pertinent history Review of Systems General: Denies: Chills, Fever, Sweats Eyes: Denies: Visual changes - bilaterally, Diplopia ENT: Denies: Rhinorrhea, Sore throat Cardiovascular: Denies: Chest pain, Palpitations Respiratory: Denies: Dyspnea, Cough, Dyspnea on exertion Gastrointestinal: Denies: Abdominal pain, Nausea, Vomiting, Diarrhea, Melena, Hematochezia Genitourinary: Denies: Dysuria, Hematuria, Frequency Musculoskeletal: Denies: Back pain, Extremity Pain Skin: Denies: Rash, Wounds Neurological: Reports: - - Reported seizure. Denies: Headache, Weakness, Numbness Physical Exam Vital Signs/Narrative: Vital Signs Temp Pulse Resp BP Pulse Ox 10/18/19 02:38 99.1 F 105 H 18 124/109 H 98 General: Well nourished, Well developed, No Acute Distress Head: Normocephalic, Atraumatic Eyes: Perrl, EOMI ENT: Moist mucous membranes, No rhinorrhea Neck: Supple, Nontender Cardiovascular: Regular rate, Regular rhythm, No murmurs Respiratory: No distress, CTA bilaterally, Chest nontender Abdomen: Soft, Nontender, Nondistended, Normal bowel sounds Back: Nontender, Normal Inspection Extremities: Nontender, No edema Skin: Normal color, No rash Neurological: Alert, Oriented x3, Cranial nerves II-XII grossly intact, Normal Strength, Normal Sensation, Normal DTR, - - Patient has difficulty communicating with words secondary to aphasia from his traumatic brain injury. Does answer all questions appropriately.. Negative for: Confused, Disoriented Psychological: Normal affect, Normal Mood Diagnostic/Tx/Re-eval - Medical Decision Making IV established given IV fluids. Lab work and CT had obtained. Lab work shows no major abnormalities. Alcohol is negative. CT head shows no new abnormalities. Old changes noted from his subdural site surgery without new eating. The patient remained stable here. He was able to communicate and rest here. He will be discharged. Given his p.m. dose of Keppra as he did not take it. This could be the reason he may have had a seizure. No seizure activity noted in the ER ED Disposition - Plan for ED Patient: Disposition: Home or Assisted Living Diagnosis: Seizure Instructions: SEIZURE, Recurrent [Adult] Referrals: Moni Cintron MD [Primary Care Provider] -
[2019-10-18] MEDS: 0.9% Normal Saline 1,000 ML 150 ML IV (03:00)
[2019-10-18 03:01] LABS: Bedside Glucose 149 mg/dL (70-110)
[2019-10-18 04:41] VITALS: BP 128/66; PULSE 96; RESP 16
[2019-10-18 04:44] LABS: Absolute Lymphocyte Count 2.52 X10^3/uL (0.83-4.51); Absolute Neutrophil Count 7.8 X10^3/uL (2.0-7.7); Basophil# 0.04 X10^3/uL; Basophil% 0.3 % (0-1); Eosinophil# 0.31 X10^3/uL; Eosinophils% 2.6 % (0-5); Hematocrit 34.4 % (40-54); Hemoglobin 11.2 g/dL (13.0-16.5); Lymphocyte # 2.52 X10^3/ul (4.0); Lymphocyte % 20.8 % (19-41); Mean Corp Hgb Conc 32.6 g/dL (32-36); Mean Corpuscular Hgb 30.5 pg (27.0-32.0); Mean Corpuscular Volume 93.7 fL (80-94); Mean Platelet Vol. 9.8 fl (6.2-12.0); Monocyte# 1.38 X10^3/uL; Monocyte% 11.4 % (0-10); NRBC Flagged by Analyzer 0 % (0-5); Neutrophil # 7.81 X10^3/uL (2.7-7.7); Neutrophil % 64.6 % (47-70); Platelet Count 266 K/mm3 (150-450); RBC Distribution Width CV 13.6 % (11.6-14.6); RBC Distribution Width SD 46.1 fl (35.1-43.9); Red Blood Count 3.67 M/mm3 (4.6-6.2); White Blood Count 12.1 K/mm3 (4.4-11.0)
[2019-10-18 05:40] LABS: ALB/GLOB Ratio 1.5 RATIO (0.9-2.4); AST(SGOT) 20 U/L (15-37); Alanine Aminotransfer ALT/SGPT 28 U/L (16-61); Albumin, Serum 3.7 g/dL (3.2-5.0); Alkaline Phosphatase 81 U/L (45-117); Anion Gap 10 (5-15); BUN 10 mg/dL (7-18); Calcium,Total 8.7 mg/dL (8.5-10.1); Chloride 106 mmol/L (98-107); Creatinine, Serum 0.66 mg/dL (0.70-1.30); EST Glomerular Filtration Rate 138 mL/min (>60); Est Glom Filt Rate - Afr Amer 167 mL/min (>60); Estimated Creatinine Clearance 136.56 ml/min; Globulin 2.4 g/dL (2.2-4.2); Glucose 129 mg/dL (74-106); Potassium 3.6 mmol/L (3.5-5.1); Protein, Total 6.1 g/dL (6.4-8.2); Sodium Level 141 mmol/L (136-145)
[2019-10-18 05:48] VITALS: BP 109/55; PULSE 99; RESP 17; O2SAT 100
[2019-10-18] MEDS: levETIRAcetam 500 MG Tablet 1500 MG PO (05:53)
== END 2019-10-18 06:36 | disposition home or self-care (01) ==
PROVIDERS: Emergency Provider Emergency Medicine; Family Provider Internal Medicine; PCP Internal Medicine
DX: G40.909 Epilepsy, unspecified, not intractable, without status epilepticus (principal); F32.9 Major depressive disorder, single episode, unspecified; F41.9 Anxiety disorder, unspecified; E10.65 Type 1 diabetes mellitus with hyperglycemia; I10 Essential (primary) hypertension; I42.6 Alcoholic cardiomyopathy; F17.200 Nicotine dependence, unspecified, uncomplicated; Z87.820 Personal history of traumatic brain injury
CPT/HCPCS: 36415; 70450; 80053; 80320; 82962; 85025; 96360; 96361; 99285; J7030; A4216; G0480

== ENCOUNTER 2019-11-05 08:21 | Outpatient (RCR) | payer MEDICARE, MEDICAID, SELFPAY ==
[2019-10-31 13:26] VITALS: BMI 20.8
--- NOTE | 2019-11-12 08:51 | HP.SP.AD ---
History - History Date of Eval: 11/05/19 Medical Diagnosis (from RX): Subdural Hematoma Date of Onset of Diagnosis: 09/11/19 Previous speech therapy: Yes Results: Previously at this facility and also at [facility] for 1-1.5 weeks. Other Relevant Medical History/Diagnoses/Surgery: Seizure disorder, Heart attack, pneumonia, insulin- dependent diabetes mellitus, alcohol abuse ( patient reported having stopped). Right subdural hematoma with increased right to left midline shift. Craniotomy with cranietcomy on 09/19/19. Drug use in past. anxiety and depression, anemia, hyponatremia Medications related to this diagnosis: Patient reported being on 28 pills. Smoking Status: Current every day smoker Hx Smoking: Yes Hx Tobacco Use: Yes Hx Smoking Exposure: Yes - Pain Is pain an issue with your current prescribed condition?: No - Personal Occupation: Disability Right Hearing Abillity: Normal Left Hearing Abillity: Normal Visual Assistive Devices: Glasses Patients Living Arrangements: Parents Patient Allergies - Allergies Allergies zinc Allergy (Intermediate, Verified 10/18/19 02:41) Hives CLQT - CLQT CLQT Administered: Yes CLQT: Cognitive Linguistic Quick Test (CLQT) is a criterion - referenced assessment designed for adults between the ages of 18 and 89 with known or suspected neurological dysfuntions. The CLQT is to assess strength and weaknesses in five cognitive domains. Severity ratings are within normal limits, mild, moderate, severe deficits. The subtests are as follows: Date: 11/12/19 - Attention Attention: Moderate - Memory Memory: Mild - Executive Functions Executive Functions: Severe - Language Language: WNL - Visuospatial Skills Visuospatial Skills: Severe - CLQT Comments Assessment Homero presents with severe deficits in problem solving, planning and self regulation for tasks. He is very tangential during all conversations and tasks. His attention to task was often limited as he was easily distacted. The patient wants to live alone however this is not recommended at this time. Plan - Plan Plan: Speech therapy is recommended for significant cognitive deficits. - Recommendations Treatment Warranted: Yes - Frequency Frequency: 1-2x /Week Duration: 2 Months Visits in this POC: 16 - Prognosis Prognosis: Fair - Goals that are Established: Determination:: Goals will be added/modified as deemed necessary and appropriate. Therapy will be discontinued when results of re-evaluation indicate therapy is no longer needed or lack of progress has been documented. - Goal #1-5 Goal #1: Homero will complete problem solving, reasoning and judgement tasks with 80% accuracy on 4/5 trials on 2/3 consecutive sessions Goal #2: Homero will complete money management evaluation. Goal #3: Homero will use recall strategies on 4/5 trials to recall information including but not limited to appointments and medication management. Education - Patient Instruction Patient Education: Diagnosis, Treatment Plan Person Taught: Patient Teaching Method: Discussion Response to teaching: Reinforcement needed
--- NOTE | 2019-11-12 10:35 | HP.SP.DC ---
ST Discharge Summary - Discharged: Discharge: Homero Smart is discharged from speech therapy at [facility] as of 11/11/19. He attended his initial evaluation but cancelled all other sessions. His mother called and stated that he is refusing to return to treatment. Therapy is highly recommended when the patient is willing. A copy of this discharge summary will be sent to his referring physician.
== END 2019-11-05 19:00 | disposition home or self-care (01) ==
LOC: SP 08:21
PROVIDERS: Family Provider Internal Medicine; PCP Internal Medicine; Referring Provider Internal Medicine; Visit Provider Internal Medicine
DX: R47.01 Aphasia (principal); R41.89 Other symptoms and signs involving cognitive functions and awareness
CPT/HCPCS: 92523

== ENCOUNTER 2019-11-30 05:38 | Inpatient (IN) | payer MEDICARE, MEDICAID, SELFPAY ==
[2019-10-31 13:26] VITALS: BMI 20.8
[2019-11-30] VITALS (27 sets, daily range): BP systolic 119–165; BP diastolic 59–102; PULSE 74–172; RESP 10–19; TEMP 36.1–36.7; O2SAT 97–100; BMI 19.8; BMI 19.2; BMI 19.3
--- NOTE | 2019-11-30 05:46 | ED.DCSUM_ITS ---
History of Present Illness Chief Complaint: Hyperglycemia Narrative: Patient presenting for evaluation due to concern for DKA. Patient reports that he has been drinking alcohol again. He has a history of alcoholism and poorly compliant type 1 diabetes with frequent DKA. Patient states that since last night he has been intoxicated, and also dealing with significant nausea and vomiting. He reports that his emesis is nonbloody and nonbilious. He denies any presence of fevers. He denies any diarrhea. Denies any abdominal pain. Patient states that he feels that he may be in DKA. His sugars were high at home, he took his normal sliding scale insulin and was brought to the emergency department by squad. He reports that he wanted to come to the emergency department last night, but I knew it was busy so I decided to come this morning. Past Medical History - Allergies and Home Meds Allergies/Adverse Reactions: Allergies zinc Allergy (Intermediate, Verified 10/18/19 02:41) [facility] Primary Care Physician: Moni Cintron MD [Primary Care Provider] - Past Medical History: - - Alcoholism, poorly compliant type 1 diabetes, history of subdural hematoma with craniotomy Surgical History: noncontributory, - - Craniotomy with evacuation of intracranial hemorrhage Smoking Status: Current every day smoker - Family History Maternal Family History: Family History (Last Reviewed 10/31/19 @ 15:32 by Aris Nelson MD) Mother Arthritis Thyroid disorder Father Diabetes Grandfather Diabetes Hypertension High cholesterol Grandmother Diabetes High cholesterol Arthritis Family History: Reports: No pertinent history Paternal Family History: Family History (Last Reviewed 10/31/19 @ 15:32 by Aris Nelson MD) Mother Arthritis Thyroid disorder Father Diabetes Grandfather Diabetes Hypertension High cholesterol Grandmother Diabetes High cholesterol Arthritis Family History: Reports: No pertinent history Review of Systems All systems negative except as indicated General: Denies: Chills, Fever, Sweats Eyes: Denies: Visual changes - bilaterally, Diplopia ENT: Denies: Rhinorrhea, Sore throat Cardiovascular: Denies: Chest pain, Palpitations Respiratory: Denies: Dyspnea, Cough, Dyspnea on exertion Gastrointestinal: Reports: Nausea, Vomiting Genitourinary: Denies: Dysuria, Hematuria, Frequency Musculoskeletal: Denies: Back pain, Extremity Pain Skin: Denies: Rash, Wounds Neurological: Denies: Headache, Weakness, Numbness Physical Exam Vital Signs/Narrative: Vital Signs Temp Pulse Resp BP Pulse Ox 11/30/19 05:40 97.6 F L 90 18 165/76 H 100 Inital Vital Signs reviewed: Yes General: Well nourished, Well developed, No Acute Distress Head: Normocephalic, Atraumatic, - - Well-healing surgical scar noted over the patient's right side of his scalp Eyes: Perrl, EOMI ENT: Moist mucous membranes, No rhinorrhea Neck: Supple, Nontender Cardiovascular: Regular rate, Regular rhythm, No murmurs Respiratory: No distress, CTA bilaterally, Chest nontender Abdomen: Soft, Nontender, Nondistended, Normal bowel sounds Extremities: Nontender, No edema Skin: - - Piloerection is noted. Normal color no rash Neurological: Alert, Oriented x3, Cranial nerves II-XII grossly intact, Normal Strength, Normal Sensation, - - Patient appears intoxicated Psychological: Normal affect, Normal Mood Diagnostic/Tx/Re-eval - Medical Decision Making Patient presented due to concern for DKA. IV was established patient was given 2 L normal saline and Zofran. Patient on laboratory work-up was found to have leukocytosis of 19.8. Venous blood gas does not show significant evidence of acidosis, but the patient has large ketones, a bicarbonate of 16 with an anion gap of 28, sodium of 123, and acute kidney injury with BUN and creatinine of 44 and 2.42 respectively. Patient's blood sugar was 452. Patient was started on an insulin drip. At this point I believe the patient requires admission. I will discuss this with hospitalist, patient will be admitted to intensive care. Critical care time (excluding procedures): 30-74 minutes ED Disposition - Plan for ED Patient: Disposition: Acute Care Hospital [facility] Diagnosis: Diabetic ketoacidosis, Acute kidney injury
[2019-11-30] MEDS: 0.9% Normal Saline 1,000 ML 999 ML IV ×2 (05:58→07:07)
[2019-11-30] MEDS: Ondansetron 4 MG/2 ML Vial IV ×2 (05:59→09:31)
[2019-11-30 06:00] LABS: Absolute Lymphocyte Count 1.83 X10^3/uL (0.83-4.51); Absolute Neutrophil Count 16.2 X10^3/uL (2.0-7.7); Basophil# 0.04 X10^3/uL; Basophil% 0.2 % (0-1); Eosinophil# 0.09 X10^3/uL; Eosinophils% 0.5 % (0-5); Hematocrit 46.6 % (40-54); Hemoglobin 16.7 g/dL (13.0-16.5); Lymphocyte # 1.83 X10^3/ul (4.0); Lymphocyte % 9.3 % (19-41); Mean Corp Hgb Conc 35.8 g/dL (32-36); Mean Corpuscular Hgb 30.6 pg (27.0-32.0); Mean Corpuscular Volume 85.5 fL (80-94); Mean Platelet Vol. 9.7 fl (6.2-12.0); Monocyte# 1.46 X10^3/uL; Monocyte% 7.4 % (0-10); NRBC Flagged by Analyzer 0 % (0-5); Neutrophil # 16.24 X10^3/uL (2.7-7.7); Platelet Count 371 K/mm3 (150-450); RBC Distribution Width CV 13.2 % (11.6-14.6); RBC Distribution Width SD 41.1 fl (35.1-43.9); Red Blood Count 5.45 M/mm3 (4.6-6.2); White Blood Count 19.8 K/mm3 (4.4-11.0)
[2019-11-30 06:05] LABS: Blood Gas Specimen Type VEN; O2 Delivery Device Room Air; SITE OTHER; VBG BASE EXCESS -10 mmol/L (-1.0-3.5); VBG Bicarbonate 16 mmol/L (22-26); VBG Oxygen Content 17 mmol/L (23-33); VBG PO2 31 mmHg (25-40); VBG SO2 55 % (50-70); VBG pCO2 31.9 mmHg (41-51); VBG pH 7.32 (7.32-7.42)
[2019-11-30 06:30] LABS: Alcohol, Blood (Medical)-Serum < 3.0 mg/dL
[2019-11-30 06:41] LABS: Anion Gap 28 (5-15); BUN 44 mg/dL (7-18); BUN/Creat Ratio 18.2 RATIO (10-20); Chloride 79 mmol/L (98-107); Creatinine, Serum 2.42 mg/dL (0.70-1.30); EST Glomerular Filtration Rate 31 mL/min (>60); Est Glom Filt Rate - Afr Amer 38 mL/min (>60); Estimated Creatinine Clearance 36.85 ml/min; Glucose 452 mg/dL (74-106); Magnesium 2.4 mg/dL (1.6-2.6); Phosphorus 4.8 mg/dL (2.5-4.9); Potassium 3.1 mmol/L (3.5-5.1); Sodium Level 123 mmol/L (136-145)
--- NOTE | 2019-11-30 06:43 | ED.RN ---
pt with emesis x1 with an increase HR of 172 pt HR dec to [address] tabitha wills.
--- NOTE | 2019-11-30 07:53 | EKG12_ITS ---
Test Reason : DKA Blood Pressure : / mmHG Vent. Rate : 088 BPM Atrial Rate : 088 BPM P-R Int : 124 ms QRS Dur : 094 ms QT Int : 430 ms P-R-T Axes : 057 -29 071 degrees QTc Int : 520 ms Normal sinus rhythm Possible Left atrial enlargement Prolonged QT Abnormal ECG Confirmed by GOOD GEORGE, RADHA ([id number]), production editor KRUNAL DOOLEY ([id number]) on 12/10/2019 10:35:34 AM Referred By: FELY Confirmed By:RADHA FUNK MD
[2019-11-30 08:06] LABS: Bedside Glucose 347 mg/dL (70-110)
--- NOTE | 2019-11-30 08:23 | HP.PCM_ITS ---
Problem List (1) Altered mental status Status: Acute Qualifiers: Altered mental status type: unspecified Qualified Code(s): R41.82 - Altered mental status, unspecified (2) Acute kidney injury Status: Acute (3) Anxiety and depression Status: Chronic (4) Tobacco dependence Status: Chronic (5) DKA (diabetic ketoacidoses) Status: Acute Qualifiers: Diabetes mellitus type: type 1 Diabetes mellitus complication detail: without coma Qualified Code(s): E10.10 - Type 1 diabetes mellitus with ketoacidosis without coma (6) Diabetes type 1, uncontrolled Status: Chronic Comment: DKA w/ encephalopathy 03/2019 (7) Alcoholic cardiomyopathy Status: Chronic (8) Nicotine dependence Status: Chronic History of Present Illness Date of Admission: 11/30/19 Chief Complaint: DKA, altered mental status The patient is a 44 year old M with history of type 1 diabetes mellitus, recurrent admission for DKA, acute kidney injury came to ER with blood glucose of 510. History is mainly taken from patient's mother near the bedside. As per her, he has been drinking vodka on November 27 about 2 and 2/ bottle and was found very lethargic in drunkenness state. Patient also has history of alcohol withdrawal seizures, last one in September 2019. In August 2019 admission for DKA, patient had traumatic injury on right upper forehead resulting into SDH after a fall for which she required craniotomy and clot evacuation in [facility]. Patient also had seizures for prolonged time at that time. He is on maintenance dose of Keppra 1500 mg twice daily along with folic acid and thiamine. In the ER, patient was found very drowsy, lethargic and somnolent. Patient also having recurrent hiccoug of and feels generalized weakness. Patient also has decreased urine output and found to be in acute kidney injury, BUN/creatinine 44/2.42. Lab features are suggestive of DKA, glucose 452, anion gap 28, bicarb 16, K3.1 and sodium 123. Serum acetone large. Alcohol level less than 3. Venous blood gas 7.32/mixed PCO2 32. No LFT, chest x-ray and EKG done in the ER [] Past Medical History Past Medical History (Chronic Problems): Chronic Problems (Last Reviewed 10/31/19 @ 15:32 by Aris Nelson MD) Anxiety and depression (Chronic) Tobacco dependence (Chronic) Diabetes type 1, uncontrolled (Chronic) DKA w/ encephalopathy 03/2019 Alcoholic cardiomyopathy (Chronic) Nicotine dependence (Chronic) Medical History: Medical History (Last Reviewed 10/31/19 @ 15:32 by Aris Nelson MD) Diabetes type 1, uncontrolled (Chronic) E10.65 DKA w/ encephalopathy 03/2019 Alcoholic cardiomyopathy (Chronic) I42.6 Nicotine dependence (Chronic) F17.200 Diabetic ketoacidosis Onset Date: 03/2019 E11.10 High cholesterol E78.00 history of vitamin deficiency Acute renal failure N17.9 Alcohol abuse F10.10 Anxiety F41.9 Dental caries K02.9 Depression F32.9 Dilated cardiomyopathy I42.0 Elevated liver enzymes R74.8 H/O sepsis Z86.19 Hyponatremia E87.1 Lactic acidosis E87.2 Left atrial enlargement I51.7 Mycoplasma pneumonia J15.7 NSVT (nonsustained ventricular tachycardia) I47.2 Neuropathy G62.9 Prolonged QT interval R94.31 Seizure disorder G40.909 Steatosis of liver K76.0 Thrombocytopenia D69.6 ELIZABETH (acute kidney injury) N17.9 Metabolic encephalopathy Onset Date: 03/2019 G93.41 Diabetes type 1, controlled E10.9 dx : 08/2001 last exacerbation : dka : 05/13 hypoglycemic episode : never er visit : 05/13 Allergies zinc Allergy (Intermediate, Verified 10/18/19 02:41) Hives Home Medications: Ambulatory Orders Medication Instructions Recorded levetiracetam 500 mg tablet 1,500 mg PO BID 01/18/18 mirtazapine 15 mg tablet 30 mg PO QHS 01/18/18 Folic Acid 1 tab PO DAILY 30 Days #30 tab 04/16/19 Atorvastatin Calcium 20 mg PO DAILY 04/22/19 Carvedilol 3.125 mg PO BID 05/13/19 Bupropion HCl [Bupropion Xl] 150 mg PO DAILY 09/17/19 Melatonin 6 mg PO QHS 09/17/19 Thiamine HCl [Vitamin B-1] 100 mg PO DAILY 09/17/19 acamprosate 333 mg tablet,delayed 333 mg PO TID tab 10/31/19 release insulin glargine 100 unit/mL (3 25 unit SC DAILY 10/31/19 mL) subcutaneous pen insulin lispro 100 unit/mL 5 unit SC TID 10/31/19 subcutaneous pen Albuterol Inhaler [Ventolin Hfa 1 - 2 puff INHALATION Q4H PRN PRN 11/30/19 (SP)] Guaifenesin/Pseudoephedrne HCl 1 ea PO BID 11/30/19 [Mucinex D ER 1,200-120 mg Tab] Oxycodone [Oxyir] 5 mg PO TID PRN 11/30/19 Surgical History: Surgical History (Last Reviewed 10/31/19 @ 15:32 by Aris Nelson MD) History of left heart catheterization Onset Date: 04/18/16 Z98.890 Hx of tonsillectomy Z98.890, Z90.89 Surgical History: noncontributory, - - Craniotomy with evacuation of intracranial hemorrhage Psychiatric History: No pertinent psych hx, Anxiety, Depression Smoking Status: Current every day smoker Tobacco Use: Cigarettes - *Family History Maternal Family History: Family History (Last Reviewed 10/31/19 @ 15:32 by Aris Nelson MD) Mother Arthritis Thyroid disorder Father Diabetes Grandfather Diabetes Hypertension High cholesterol Grandmother Diabetes High cholesterol Arthritis History Items: No pertinent history Paternal Family History: Family History (Last Reviewed 10/31/19 @ 15:32 by Aris Nelson MD) Mother Arthritis Thyroid disorder Father Diabetes Grandfather Diabetes Hypertension High cholesterol Grandmother Diabetes High cholesterol Arthritis History Items: No pertinent history Review of Systems Constitutional: Reports: Anorexia, Malaise, Weakness, Fatigue. Denies: Chills, Fever Respiratory: Denies: Cough, Hemoptysis Genitourinary: Denies: Dysuria, Frequency Neurological: Reports: Balance problems Psychiatric: Reports: Anxiety, Depression Unable to obtain accurate/complete ROS d/t: Patient is lethargic and somnolent VTE Information - Inpt Only VTE Present on Admission: No VTE Mechan Device Prophylaxis: None VTE Pharm Prophylaxis ordered?: Yes Patient Problems: Active and Suspected Problems (Last Reviewed 10/31/19 @ 15:32 by Aris Nelson MD) Acute kidney injury (Acute) - Physical Exam Vitals/I&O's: Vital Signs Temp Pulse Resp BP Pulse Ox 97.6 F L 86 18 141/86 H 100 11/30/19 05:40 11/30/19 08:01 11/30/19 08:01 11/30/19 08:01 11/30/19 08:01 Oxygen Delivery Method Room Air Weight: 145 lb 15.136 oz Body Mass Index (BMI) 19.8 Finger Stick Blood Glucose 347 Intake and Output for Last 24 Hours 11/28/19 11/29/19 11/30/19 23:59 23:59 23:59 Intake Total 1006.16 / 1006.16 Balance 1006.16 / 1006.16 General: Confused, Disoriented, Lethargic HEENT: Atraumatic, PERRLA, EOMI, Normocephalic Oral: No Gingival or Mucosal Lesions/ Ulcerations, Dry Mucosa Neck: Supple, No JVD, Negative Carotid Bruits Lungs: Clear to auscultation, No rhonchi, No wheeze, No rales, Diminished - Air entry diminished in bilateral lung bases Cardiovascular: Regular rate, No murmurs Abdomen: Bowel Sounds Present, Soft, Non Tender, Non-Distended Extremities: No edema, Capillary Refill Less than 3 Seconds Skin: No rashes, No breakdown Musculoskeletal: No Tenderness to Palpation of Joints or Extremities, Muscle Wasting Neurological: - - Neuro exam unobtainable as patient is somnolent/lethargic Psych/Mental Status: Normal Affect, Appropriate Laboratory Results 11/30/19 05:55: Sodium 123 L, Potassium 3.1 L, Chloride 79 L, Carbon Dioxide 16.0 L, Anion Gap 28 H, BUN 44 H, Creatinine 2.42 H, Estim Creat Clear Calc 36.85, Est GFR (MDRD) Af Amer 38 L, Est GFR (MDRD) Non-Af 31 L, BUN/Creatinine Ratio 18.2, Glucose 452 H*, Calcium 8.0 L, Phosphorus 4.8, Magnesium 2.4 11/30/19 05:55: Acetone Level LARGE H 11/30/19 05:55: WBC 19.8 H, RBC 5.45, Hgb 16.7 H, Hct 46.6, MCV 85.5, MCH 30.6, MCHC 35.8, RDW Std Deviation 41.1, RDW Coeff of Omayra 13.2, Plt Count 371, MPV 9.7, Immature Gran % (Auto) 0.600, Neut % (Auto) 82.0 H, Lymph % (Auto) 9.3 L, Catahoula % (Auto) 7.4, Eos % (Auto) 0.5, Baso % (Auto) 0.2, Absolute Neuts (auto) 16.2 H, Absolute Lymphs (auto) 1.83, Nucleated RBC % 0 11/30/19 05:55: Ethyl Alcohol < 3.0 11/30/19 05:59: Specimen Type JAKY, Sample Site OTHER, VBG pH 7.32, VBG pO2 31, VBG O2 Sat (Calc) 55, VBG O2 Content 17 L, VBG Base Excess -10 L, POC Mix VBG pCO2 Pt Tmp 31.9 L, O2 Delivery Device Room Air, Blood Gas Notified Whom ED 11/30/19 07:58: POC Glucose 347 H Current Medications Insulin Human Lispro 100 unit/ (Sodium Chloride) 100 mls @ 6.62 mls/hr IV .Q15H7M OZZIE; Protocol Last Titration: 11/30/19 07:59 Dose: 0.04 units/kg/hr, 2.6 mls/hr Documented by: Assessment/Plan All Active Problems (Last Reviewed 10/31/19 @ 15:32 by Aris Nelson MD) Diabetes (Acute) Altered mental status (Acute) Acute kidney injury (Acute) DKA (diabetic ketoacidoses) (Acute) The patient is a 44 year old M with history of type 1 diabetes mellitus, recurrent admission for DKA, acute kidney injury came to ER with blood glucose of 510. ER labs BUN/creatinine 44/2.42. Lab features are suggestive of DKA, glucose 452, anion gap 28, bicarb 16, K3.1 and sodium 123. Serum acetone large. Alcohol level less than 3. Venous blood gas 7.32/mixed PCO2 32. Assessment and plan: 1. DKA with high anion gap metabolic acidosis: Patient is being admitted in ICU. On DKA protocol with IV fluid and insulin drip. Recheck BMP every 4 hour. Serum acetone tomorrow a.m. 2. Acute kidney injury mostly from DKA/prerenal: IV fluid resuscitation. Monitor intake/output, electrolytes, kidney function. 3. Alcohol withdrawal/postcraniotomy seizures: Patient Keppra dose of 1500 mg IV twice daily continue along with IV thiamine and folic acid. 4. Alcohol dependence and tolerance/binge drinking with alcoholic cardiomyopathy: patient had echo in April 2019. It is reported as Normal LV size. The estimated ejection fraction is 50 %. Borderline global hypokinesis of left ventricle. Left ventricular systolic function is lower limits of normal. The global longitudinal strain = -12.8% (abnormal). Compared to prior study, there is no significant change. Continue atorvastatin and carvedilol. 5. Other comorbidities include anxiety and depression: Patient is on bupropion, mirtazapine: Home medications reconciliation done. DVT prophylaxis, moderate risk in view of multiple comorbidities: On Lovenox 40 mg subcu daily. Watch out for bleeding and monitor CBC. Discontinue if platelet count drops less than 50,000 or hemoglobin less than 8 g% CODE STATUS: Full code. Code Visit Inpatient E&M: 85186 Init Hosp L3
--- NOTE | 2019-11-30 08:25 | RAD_ITS ---
STUDY: X-RAY CHEST REASON FOR EXAM: Male, 44 years old. SOB -- -- admitted to ICU for DKA, ELIZABETH TECHNIQUE: AP COMPARISON: 09/19/2019 FINDINGS: EKG leads project over the chest. The lungs are clear and expanded. There is no demonstrated pleural abnormality. Normal size heart. Normal mediastinum and sherry. Normal visualized pulmonary arteries. Normal visualized aortic arch and descending thoracic aorta. Normal visualized thoracic spine. Normal visualized ribs, clavicles, and shoulders. There is no demonstrated abnormality of the visualized soft tissue structures of the upper abdomen. RAD/Chest 1 View (Portable) IMPRESSION: Nonacute portable x-ray examination of the chest. Electronically Signed: Juan J White MD (Brooks) at 15:27 EST , Service support ,
[2019-11-30] MEDS: proMETHazine 25 MG/ML Syringe 12.5 MG IV (08:58)
[2019-11-30] MEDS: 0.9% Normal Saline 1,000 ML 500 ML IV (08:59)
[2019-11-30 09:11] LABS: Bedside Glucose 287 mg/dL (70-110)
[2019-11-30 09:29] LABS: Anion Gap 20 (5-15); BUN 37 mg/dL (7-18); BUN/Creat Ratio 19.6 RATIO (10-20); Calcium,Total 7.1 mg/dL (8.5-10.1); Chloride 92 mmol/L (98-107); Creatinine, Serum 1.89 mg/dL (0.70-1.30); EST Glomerular Filtration Rate 41 mL/min (>60); Est Glom Filt Rate - Afr Amer 50 mL/min (>60); Estimated Creatinine Clearance 45.91 ml/min; GGTP 231 U/L (15-85); Glucose 290 mg/dL (74-106); Potassium 2.7 mmol/L (3.5-5.1); Sodium Level 130 mmol/L (136-145)
[2019-11-30] MEDS: Dext 5%-0.45% NS 1,000 ML 150 ML IV ×2 (10:10→17:13)
[2019-11-30] MEDS: Potassium Chloride 10mEq/100mL 10 MEQ/100 ML IV.SOLN. 100 MEQ IV BOLUS ×6 (10:49→21:05)
[2019-11-30 11:01] LABS: Bedside Glucose 225 mg/dL (70-110)
[2019-11-30 11:05] LABS: Bedside Glucose 329 mg/dL (70-110)
[2019-11-30 12:01] LABS: M R Staph aureus DNA By PCR Negative (Negative); Probe Check PASS; Specimen Processing Control PASS
[2019-11-30] MEDS: levETIRAcetam IV 1,000 MG/100 ML BAG 400 MG IV ×2 (12:29→22:51)
[2019-11-30 12:40] LABS: Bedside Glucose 316 mg/dL (70-110)
[2019-11-30 13:01] LABS: Anion Gap 19 (5-15); BUN 31 mg/dL (7-18); BUN/Creat Ratio 20.1 RATIO (10-20); Calcium,Total 7.1 mg/dL (8.5-10.1); Chloride 94 mmol/L (98-107); Creatinine, Serum 1.54 mg/dL (0.70-1.30); EST Glomerular Filtration Rate 53 mL/min (>60); Est Glom Filt Rate - Afr Amer 64 mL/min (>60); Estimated Creatinine Clearance 56.34 ml/min; Glucose 319 mg/dL (74-106); Potassium 3.1 mmol/L (3.5-5.1); Sodium Level 130 mmol/L (136-145)
[2019-11-30 13:21] LABS: Bedside Glucose 310 mg/dL (70-110)
[2019-11-30 14:16] LABS: Bedside Glucose 263 mg/dL (70-110)
[2019-11-30 15:16] LABS: Bedside Glucose 249 mg/dL (70-110)
[2019-11-30 16:30] LABS: Bedside Glucose 238 mg/dL (70-110)
[2019-11-30 16:39] LABS: Anion Gap 9 (5-15); BUN 25 mg/dL (7-18); BUN/Creat Ratio 17.1 RATIO (10-20); Calcium,Total 7.1 mg/dL (8.5-10.1); Chloride 101 mmol/L (98-107); Creatinine, Serum 1.46 mg/dL (0.70-1.30); EST Glomerular Filtration Rate 56 mL/min (>60); Est Glom Filt Rate - Afr Amer 68 mL/min (>60); Estimated Creatinine Clearance 59.43 ml/min; Glucose 245 mg/dL (74-106); Potassium 3.5 mmol/L (3.5-5.1); Sodium Level 132 mmol/L (136-145)
[2019-11-30 17:21] LABS: Bedside Glucose 203 mg/dL (70-110)
[2019-11-30 18:00] LABS: Bedside Glucose 193 mg/dL (70-110)
[2019-11-30 19:21] LABS: Bedside Glucose 183 mg/dL (70-110)
[2019-11-30 20:06] LABS: Bedside Glucose 193 mg/dL (70-110)
[2019-11-30 20:39] LABS: Anion Gap 10 (5-15); BUN 20 mg/dL (7-18); BUN/Creat Ratio 15.2 RATIO (10-20); Chloride 102 mmol/L (98-107); Creatinine, Serum 1.32 mg/dL (0.70-1.30); EST Glomerular Filtration Rate 63 mL/min (>60); Est Glom Filt Rate - Afr Amer 76 mL/min (>60); Estimated Creatinine Clearance 65.73 ml/min; Glucose 202 mg/dL (74-106); Potassium 3.4 mmol/L (3.5-5.1); Sodium Level 134 mmol/L (136-145)
[2019-11-30] MEDS: 0.9% Saline Lock 10 ML Syringe IV (21:12)
[2019-11-30 21:20] LABS: Bedside Glucose 172 mg/dL (70-110)
[2019-11-30 22:15] LABS: Bedside Glucose 169 mg/dL (70-110)
[2019-11-30] MEDS: Insulin Lispro 100 UNIT/ML INSULN.PEN SC (22:54)
[2019-11-30 23:01] LABS: Bedside Glucose 180 mg/dL (70-110)
[2019-11-30] MEDS: Mag Hydrox/Al Hydrox/Simeth 30 ML UDC PO (23:43)
[2019-12-01] VITALS (22 sets, daily range): BP systolic 127–160; BP diastolic 72–90; PULSE 69–89; RESP 12–19; TEMP 36.6–36.9; O2SAT 96–100
[2019-12-01 00:41] LABS: Bedside Glucose 155 mg/dL (70-110)
[2019-12-01 04:08] LABS: Bacteria 0 SEEN /hpf (None Seen); Mucous, Urine 0 SEEN /hpf (<or=2+); Red Blood Cells-Urine 0 SEEN /hpf (0-5)
[2019-12-01 04:11] LABS: Bedside Glucose 147 mg/dL (70-110)
[2019-12-01 04:15] LABS: Anion Gap 9 (5-15); BUN 13 mg/dL (7-18); BUN/Creat Ratio 11.5 RATIO (10-20); Calcium,Total 7.5 mg/dL (8.5-10.1); Chloride 101 mmol/L (98-107); Creatinine, Serum 1.13 mg/dL (0.70-1.30); EST Glomerular Filtration Rate 75 mL/min (>60); Est Glom Filt Rate - Afr Amer 91 mL/min (>60); Estimated Creatinine Clearance 76.78 ml/min; Glucose 158 mg/dL (74-106); Sodium Level 133 mmol/L (136-145)
[2019-12-01 04:23] LABS: Color, Urine Yellow (Yellow); Glucose, Dipstick 100 mg/dl (Normal); Ketone-Dipstick 50 mg/dl (Negative); Leukocyte Esterase-Dipstick 25 /ul (Negative); Nitrite-Dipstick Negative (Negative); Occult Blood-Urine Negative /ul (Negative); Protein-Dipstick 15 mg/dl (Negative); Urine Bilirubin Dipstick Negative (Negative); Urine Clarity Sl Cldy (Clear); Urine Urobilinogen Normal (Normal); Urine pH 6.5 (5.0 - 8.0)
[2019-12-01 04:27] LABS: Squamous Epithelial Cells - UA 0-5 SEEN /hpf (0-5); White Blood Cells 0-5 SEEN /hpf (0-5)
[2019-12-01 04:52] LABS: AST(SGOT) 23 U/L (15-37); Alanine Aminotransfer ALT/SGPT 61 U/L (16-61); Albumin, Serum 3.3 g/dL (3.2-5.0); Alkaline Phosphatase 97 U/L (45-117); Bilirubin, Direct 0.25 mg/dL (0.00-0.30); Globulin 2.7 g/dL (2.2-4.2); Magnesium 2.1 mg/dL (1.6-2.6)
[2019-12-01 07:10] LABS: Bedside Glucose 157 mg/dL (70-110)
[2019-12-01 08:35] LABS: Bedside Glucose 168 mg/dL (70-110)
[2019-12-01] MEDS: Insulin Lispro 100 UNIT/ML INSULN.PEN SC ×4 (08:37→11:19)
[2019-12-01] MEDS: Carvedilol 3.125 MG TABLET PO (08:38)
[2019-12-01] MEDS: levETIRAcetam IV 1,000 MG/100 ML BAG 400 MG IV (08:39)
--- NOTE | 2019-12-01 08:52 | PN_ITS ---
Patient Problems: Active and Suspected Problems (Last Reviewed 10/31/19 @ 15:32 by Aris Nelson MD) Acute kidney injury (Acute) Subjective: The patient is a 44 YO poorly controlled Type 1 diabetic with admissions to [facility] in March, April, Aug X 2 and September of 2019. Past medical history is also significant for tobacco dependence, anxiety/depression, alcoholic cardiomyopathy (normal coronaries in March 2016), SDH in Aug that required craniotomy at [facility] and alcoholism. He presented to the emergency department at [facility] on 11/30/2019 with altered mental status and generalized weakness. Admitting lab revealed a low sodium at 123, low potassium at 3.1, serum bicarb of 16 and a BUN of 44 with a creatinine of 2.42. Random blood sugar was 452 and he had a large amount of acetone. He was admitted to the intensive care unit for another episode of DKA with hyponatremia and acute kidney injury likely secondary to dehydration. His mother reported that he has been drinking heavily recently. He has a hx of alcohol withdrawal seizures. All events of the past 24 hours of been reviewed. Afebrile since admission Heart rate is within normal limits. Blood pressure is stable. He is maintaining an appropriate oxygen saturation of 96 to 99% on room air. Most recent demonstrates show a potassium of 3.0 with a sodium of 133. The creatinine is down to 1.13 from 1.46 with hydration. Is very low at 1.0. Calcium is borderline low. Urine had 0-5 WBCs with no bacteria reported. White blood cell count at admission was 19.8, likely due to stress, and the hemoglobin was 16.7 due to hemoconcentration. Platelets were 371,000. Chest x-ray at admission showed no infiltrates, pleural effusions or pulmonary vascular congestion. The blood sugar record was reviewed. All blood sugars since 6 PM on 11/30/2019 have been less than 200. He is currently on sliding scale insulin. - Physical Exam Vitals/I&O's: Vital Signs Temp Pulse Resp BP Pulse Ox 98.1 F 79 12 142/78 H 99 12/01/19 00:00 12/01/19 06:00 12/01/19 06:00 12/01/19 06:00 12/01/19 06:00 Oxygen Delivery Method Room Air Weight: 148 lb 12.992 oz Body Mass Index (BMI) 19.2 Finger Stick Blood Glucose 180 Intake and Output for Last 24 Hours 11/29/19 11/30/19 12/01/19 23:59 23:59 23:59 Intake Total 5962.00 / 5962.00 400 / 400 Output Total 800 / 800 950 / 950 Balance 5162.00 / 5162.00 -550 / -550 Microbiology Past 72 Hours 11/30/19 09:20 Vomitus Gastric Occult Blood - Final Occult Blood Positive Laboratory Results 11/30/19 08:50: Sodium 130 L, Potassium 2.7 L*, Chloride 92 L, Carbon Dioxide 18.0 L, Anion Gap 20 H, BUN 37 H, Creatinine 1.89 H, Estim Creat Clear Calc 45.91, Est GFR (MDRD) Af Amer 50 L, Est GFR (MDRD) Non-Af 41 L, BUN/Creatinine Ratio 19.6, Glucose 290 H, Calcium 7.1 L, GGT 231 H 11/30/19 08:50: MRSA (PCR) Negative 11/30/19 09:05: POC Glucose 287 H 11/30/19 10:09: POC Glucose 225 H 11/30/19 11:01: POC Glucose 329 H 11/30/19 12:25: POC Glucose 316 H 11/30/19 12:30: Sodium 130 L, Potassium 3.1 L, Chloride 94 L, Carbon Dioxide 17.0 L, Anion Gap 19 H, BUN 31 H, Creatinine 1.54 H, Estim Creat Clear Calc 56.34, Est GFR (MDRD) Af Amer 64, Est GFR (MDRD) Non-Af 53 L, BUN/Creatinine Ratio 20.1 H, Glucose 319 H, Calcium 7.1 L 11/30/19 13:13: POC Glucose 310 H 11/30/19 14:04: POC Glucose 263 H 11/30/19 15:06: POC Glucose 249 H 11/30/19 16:03: POC Glucose 238 H 11/30/19 16:15: Sodium 132 L, Potassium 3.5, Chloride 101, Carbon Dioxide 22.0, Anion Gap 9, BUN 25 H, Creatinine 1.46 H, Estim Creat Clear Calc 59.43, Est GFR (MDRD) Af Amer 68, Est GFR (MDRD) Non-Af 56 L, BUN/Creatinine Ratio 17.1, Glucose 245 H, Calcium 7.1 L 11/30/19 17:11: POC Glucose 203 H 11/30/19 17:57: POC Glucose 193 H 11/30/19 19:17: POC Glucose 183 H 11/30/19 20:00: Sodium 134 L, Potassium 3.4 L, Chloride 102, Carbon Dioxide 22.0, Anion Gap 10, BUN 20 H, Creatinine 1.32 H, Estim Creat Clear Calc 65.73, Est GFR (MDRD) Af Amer 76, Est GFR (MDRD) Non-Af 63, BUN/Creatinine Ratio 15.2, Glucose 202 H, Calcium 7.0 L 11/30/19 20:01: POC Glucose 193 H 11/30/19 21:09: POC Glucose 172 H 11/30/19 22:13: POC Glucose 169 H 11/30/19 22:49: POC Glucose 180 H 12/01/19 00:35: POC Glucose 155 H 12/01/19 03:50: Magnesium 2.1, Total Bilirubin 1.00, Direct Bilirubin 0.25, AST 23, ALT 61, Alkaline Phosphatase 97, Total Protein 6.0 L, Albumin 3.3, Globulin 2.7 12/01/19 03:50: Sodium 133 L, Potassium 3.0 L, Chloride 101, Carbon Dioxide 23.0, Anion Gap 9, BUN 13, Creatinine 1.13, Estim Creat Clear Calc 76.78, Est GFR (MDRD) Af Amer 91, Est GFR (MDRD) Non-Af 75, BUN/Creatinine Ratio 11.5, Glucose 158 H, Calcium 7.5 L 12/01/19 03:50: Phosphorus 1.0 L* 12/01/19 03:50: Acetone Level SMALL H 12/01/19 03:50: Hemoglobin A1c Pending 12/01/19 04:00: Urine Color Yellow, Urine Clarity Sl Cldy, Urine pH 6.5, Ur Specific [place] 1.010, Urine Protein 15 H, Urine Glucose (UA) 100 H, Urine Ketones 50 H, Urine Occult Blood Negative, Urine Nitrite Negative, Urine Juan Ramon irubin Negative, Urine Urobilinogen Normal, Ur Leukocyte Esterase 25 H, Urine RBC 0 SEEN, Urine WBC 0-5 SEEN, Ur Squamous Epith Cells 0-5 SEEN, Urine Bacteria 0 SEEN, Urine Mucus 0 SEEN 12/01/19 04:05: POC Glucose 147 H 12/01/19 07:04: POC Glucose 157 H 12/01/19 08:29: POC Glucose 168 H Current Medications Acetaminophen (Tylenol) 650 mg PO Q6H PRN PRN PRN Reason: Pain Score 1-3/Temp > 100.7 F Al Hydroxide/Mg Hydroxide (Mylanta Ii) 30 ml PO Q6H PRN PRN PRN Reason: Gastric Burning Last Admin: 11/30/19 23:43 Dose: 30 ml Documented by: Albuterol/Ipratropium (Duoneb) 3 ml INHALATION Q4H.RT PRN PRN Reason: SHORTNESS OF BREATH Carvedilol (Coreg) 3.125 mg PO [facility] Last Admin: 12/01/19 08:38 Dose: 3.125 mg Documented by: Glucagon () 1 mg IM .X1 PRN PRN Reason: Hypoglycemia Guaifenesin (Robitussin) 10 ml PO Q4H PRN PRN PRN Reason: COUGH Heparin Sodium (Beef Lung) () 50 units IV UD PRN PRN Reason: PICC Line Heparin Flush Thiamine HCl 100 mg/ Sodium (Chloride) 51 mls @ 200 mls/hr IV DAILY [facility] Levetiracetam () 1,000 mg in 100 mls @ 400 mls/hr IV Q12 [facility] Last Admin: 12/01/19 08:39 Dose: 400 mls/hr Documented by: Levetiracetam 500 mg/ Sodium (Chloride) 105 mls @ 400 mls/hr IV Q12 [facility] Last Infusion: 11/30/19 23:14 Dose: Infused Documented by: Folic Acid 1 mg/ Sodium (Chloride) 50.2 mls @ 200 mls/hr IV DAILY [facility] Last Infusion: 11/30/19 19:42 Dose: Infused Documented by: Dextrose (Dextrose 10%-Water) 250 mls @ 999 mls/hr IV .Q16M PRN; Protocol PRN Reason: HYPOGLYCEMIA Pantoprazole Sodium 40 mg/ (Sodium Chloride) 110 mls @ 330 mls/hr IV BID [facility] Last Infusion: 11/30/19 21:33 Dose: Infused Documented by: Sodium Chloride () 250 mls @ 15 mls/hr IV .[id number] PRN PRN Reason: Saline Flush Potassium Phosphate 40 mm/ (Sodium Chloride) 513.3333 mls @ 62.5 mls/hr IV X1 ONE Stop: 12/01/19 13:25 Last Admin: 12/01/19 05:45 Dose: 62.5 mls/hr Documented by: Insulin Glargine (Lantus (Bkc)) 25 units SC DAILY [facility] Last Admin: 12/01/19 08:39 Dose: 25 units Documented by: Insulin Human Lispro (Humalog Kwikpen (Bkc)) 4 unit SC TIDAC [facility] Last Admin: 12/01/19 08:37 Dose: 4 u Documented by: Insulin Human Lispro (Humalog Kwikpen (Bkc)) 0 unit SC ACHS [facility]; Protocol Last Admin: 12/01/19 08:37 Dose: 1 units Documented by: Metoprolol Tartrate (Lopressor (Beta Alan)) 5 mg IV Q6H PRN PRN Reason: TO CONTROL HEART RATE Morphine Sulfate () 2 mg IV Q3H PRN PRN PRN Reason: Pain Score 4-10/10 Nutritional Formula (Lactose Free) (Glucerna Shake) 120 ml PO 4X/DAY [facility] Last Admin: 12/01/19 08:38 Dose: Not Given Documented by: Ondansetron HCl (Zofran) 4 mg IV Q8H PRN PRN PRN Reason: NAUSEA/VOMITING Last Admin: 11/30/19 09:31 Dose: 4 mg Documented by: Promethazine HCl (Phenergan) 12.5 mg IV Q6H PRN PRN PRN Reason: Breakthrough Nausea/Vomiting Last Admin: 11/30/19 08:58 Dose: 12.5 mg Documented by: Senna/Docusate Sodium (Senokot-S, Mary-Colace) 2 tablet PO BID PRN PRN Reason: Constipation Sodium Chloride () 10 - 40 ml IV UD PRN PRN Reason: Open End PICC Flush Last Admin: 11/30/19 21:12 Dose: 20 ml Documented by: Sodium Chloride (0.9% Nacl (Sterile) Posiflush) 10 - 40 ml IV UD PRN PRN Reason: Port access or dressing change Medical Necessity - Tobacco Use Smoking Status: Current every day smoker Tobacco Use: Cigarettes Assessment/Plan All Active Problems (Last Reviewed 10/31/19 @ 15:32 by Aris Nelson MD) Diabetes (Acute) Altered mental status (Acute) Acute kidney injury (Acute) DKA (diabetic ketoacidoses) (Acute)
[2019-12-01 11:56] LABS: Bedside Glucose 162 mg/dL (70-110)
--- NOTE | 2019-12-01 15:38 | DCINST_ITS ---
- Discharge Diagnoses Current Active Problems: Current Active and Chronic Problems (Last Reviewed 10/31/19 @ 15:32 by Aris Nelson MD) Acute kidney injury (Acute) You will use the following diet at home:: Calorie/Carbohydrate Controlled (specify 1200, 1400, etc), Cardiac - Low salt Your food should be the consistency of: Regular Your liquids should be the consistency of: Regular/Thin Discharge Activity: Return to Normal Activity Call your doctor if you observe: Fever of 101 or Higher, Inability to urinate, Shortness of breath, Dizziness, Fainting spells, Chest pain Additional Instructions: 1. Follow your diet and take ALL of your medications as instructed. No alcohol. Allergies/Adverse Reactions: Allergies zinc Allergy (Intermediate, Verified 10/18/19 02:41) Hives Medications to take at Discharge levetiracetam 500 mg tablet 1,500 mg PO BID 01/18/18 mirtazapine 15 mg tablet 30 mg PO QHS 01/18/18 Folic Acid 1 tab PO DAILY 30 Days #30 tab 04/16/19 Atorvastatin Calcium 20 mg PO DAILY 04/22/19 Carvedilol 3.125 mg PO BID 05/13/19 Bupropion HCl [Bupropion Xl] 150 mg PO DAILY 09/17/19 Melatonin 6 mg PO QHS 09/17/19 Thiamine HCl [Vitamin B-1] 100 mg PO DAILY 09/17/19 acamprosate 333 mg tablet,delayed release 333 mg PO TID tab 10/31/19 insulin glargine 100 unit/mL (3 mL) subcutaneous pen 25 unit SC DAILY 10/31/19 insulin lispro 100 unit/mL subcutaneous pen 5 unit SC TID 10/31/19 Albuterol Inhaler [Ventolin Hfa] 1 - 2 puff INHALATION Q4H PRN PRN 11/30/19 Oxycodone [Oxyir] 5 mg PO TID PRN 11/30/19 Primary Care Physician: Moni Cintron MD [Primary Care Provider] - Please follow up with your Primary Care Physician in: within the next week Test Results: Test results from this visit will be discussed in further detail at your follow- up appointment, if applicable. Proposed Discharge Date: 12/01/19
--- NOTE | 2019-12-01 15:46 | PCM.DC.SUM ---
Discharge Date and Diagnosis - Problem List Patient Problems: Active and Suspected Problems (Last Reviewed 10/31/19 @ 15:32 by Aris Nelson MD) Dehydration (Acute) Hypokalemia (Acute) Hypophosphatemia (Acute) Acute kidney injury (Acute) Date of Admission: 11/30/19 Date of Discharge: 12/01/19 - Primary Discharge Diagnosis Active and Suspected Problems (Last Reviewed 10/31/19 @ 15:32 by Aris Nelson MD) DKA Dehydration (Acute) Hypokalemia (Acute) Hypophosphatemia (Acute) Acute kidney injury (Acute) - more likely than not due to dehydration Hyponatremia - Secondary Discharge Diagnosis Chronic Problems (Last Reviewed 10/31/19 @ 15:32 by Aris Nelson MD) Anxiety and depression (Chronic) Tobacco dependence (Chronic) Diabetes type 1, uncontrolled (Chronic) Alcoholic cardiomyopathy (Chronic) - mostly resolved, echocardiogram in January 2018 showed an ejection fraction of 53% Nicotine dependence (Chronic) Seizure disorder Noncompliance with diet and insulin and abstention from alcohol Hospital Course and Treatment Imaging Results: Clinical Impression(s) from Imaging Studies Chest X-Ray 11/30/19 08:25 IMPRESSION: Nonacute portable x-ray examination of the chest. Electronically Signed: Juan J White MD (Brooks) at 15:27 EST , Service support , Laboratory Results - last 24 hr 11/30/19 11/30/19 11/30/19 16:03 16:15 17:11 Sodium 132 L Potassium 3.5 Chloride 101 Carbon Dioxide 22.0 Anion Gap 9 BUN 25 H Creatinine 1.46 H Estim Creat Clear Calc 59.43 Est GFR (MDRD) Af Amer 68 Est GFR (MDRD) Non-Af 56 L BUN/Creatinine Ratio 17.1 Glucose 245 H Hemoglobin A1c Calcium 7.1 L Phosphorus Magnesium Total Bilirubin Direct Bilirubin AST ALT Alkaline Phosphatase Total Protein Albumin Globulin Urine Color Urine Clarity Urine pH Ur Specific [place] Urine Protein Urine Glucose (UA) Urine Ketones Urine Occult Blood Urine Nitrite Urine Bilirubin Urine Urobilinogen Ur Leukocyte Esterase Urine RBC Urine WBC Ur Squamous Epith Cells Urine Bacteria Urine Mucus Acetone Level POC Glucose 238 H 203 H 11/30/19 11/30/19 11/30/19 17:57 19:17 20:00 Sodium 134 L Potassium 3.4 L Chloride 102 Carbon Dioxide 22.0 Anion Gap 10 BUN 20 H Creatinine 1.32 H Estim Creat Clear Calc 65.73 Est GFR (MDRD) Af Amer 76 Est GFR (MDRD) Non-Af 63 BUN/Creatinine Ratio 15.2 Glucose 202 H Hemoglobin A1c Calcium 7.0 L Phosphorus Magnesium Total Bilirubin Direct Bilirubin AST ALT Alkaline Phosphatase Total Protein Albumin Globulin Urine Color Urine Clarity Urine pH Ur Specific [place] Urine Protein Urine Glucose (UA) Urine Ketones Urine Occult Blood Urine Nitrite Urine Bilirubin Urine Urobilinogen Ur Leukocyte Esterase Urine RBC Urine WBC Ur Squamous Epith Cells Urine Bacteria Urine Mucus Acetone Level POC Glucose 193 H 183 H 11/30/19 11/30/19 11/30/19 20:01 21:09 22:13 Sodium Potassium Chloride Carbon Dioxide Anion Gap BUN Creatinine Estim Creat Clear Calc Est GFR (MDRD) Af Amer Est GFR (MDRD) Non-Af BUN/Creatinine Ratio Glucose Hemoglobin A1c Calcium Phosphorus Magnesium Total Bilirubin Direct Bilirubin AST ALT Alkaline Phosphatase Total Protein Albumin Globulin Urine Color Urine Clarity Urine pH Ur Specific [place] Urine Protein Urine Glucose (UA) Urine Ketones Urine Occult Blood Urine Nitrite Urine Bilirubin Urine Urobilinogen Ur Leukocyte Esterase Urine RBC Urine WBC Ur Squamous Epith Cells Urine Bacteria Urine Mucus Acetone Level POC Glucose 193 H 172 H 169 H 11/30/19 12/01/19 12/01/19 22:49 00:35 03:50 Sodium Potassium Chloride Carbon Dioxide Anion Gap BUN Creatinine Estim Creat Clear Calc Est GFR (MDRD) Af Amer Est GFR (MDRD) Non-Af BUN/Creatinine Ratio Glucose Hemoglobin A1c Calcium Phosphorus Magnesium 2.1 Total Bilirubin 1.00 Direct Bilirubin 0.25 AST 23 ALT 61 Alkaline Phosphatase 97 Total Protein 6.0 L Albumin 3.3 Globulin 2.7 Urine Color Urine Clarity Urine pH Ur Specific [place] Urine Protein Urine Glucose (UA) Urine Ketones Urine Occult Blood Urine Nitrite Urine Bilirubin Urine Urobilinogen Ur Leukocyte Esterase Urine RBC Urine WBC Ur Squamous Epith Cells Urine Bacteria Urine Mucus Acetone Level POC Glucose 180 H 155 H 12/01/19 12/01/19 12/01/19 03:50 03:50 03:50 Sodium 133 L Potassium 3.0 L Chloride 101 Carbon Dioxide 23.0 Anion Gap 9 BUN 13 Creatinine 1.13 Estim Creat Clear Calc 76.78 Est GFR (MDRD) Af Amer 91 Est GFR (MDRD) Non-Af 75 BUN/Creatinine Ratio 11.5 Glucose 158 H Hemoglobin A1c Calcium 7.5 L Phosphorus 1.0 L* Magnesium Total Bilirubin Direct Bilirubin AST ALT Alkaline Phosphatase Total Protein Albumin Globulin Urine Color Urine Clarity Urine pH Ur Specific [place] Urine Protein Urine Glucose (UA) Urine Ketones Urine Occult Blood Urine Nitrite Urine Bilirubin Urine Urobilinogen Ur Leukocyte Esterase Urine RBC Urine WBC Ur Squamous Epith Cells Urine Bacteria Urine Mucus Acetone Level SMALL H POC Glucose 12/01/19 12/01/19 12/01/19 03:50 04:00 04:05 Sodium Potassium Chloride Carbon Dioxide Anion Gap BUN Creatinine Estim Creat Clear Calc Est GFR (MDRD) Af Amer Est GFR (MDRD) Non-Af BUN/Creatinine Ratio Glucose Hemoglobin A1c 9.0 H Calcium Phosphorus Magnesium Total Bilirubin Direct Bilirubin AST ALT Alkaline Phosphatase Total Protein Albumin Globulin Urine Color Yellow Urine Clarity Sl Cldy Urine pH 6.5 Ur Specific [place] 1.010 Urine Protein 15 H Urine Glucose (UA) 100 H Urine Ketones 50 H Urine Occult Blood Negative Urine Nitrite Negative Urine Bilirubin Negative Urine Urobilinogen Normal Ur Leukocyte Esterase 25 H Urine RBC 0 SEEN Urine WBC 0-5 SEEN Ur Squamous Epith Cells 0-5 SEEN Urine Bacteria 0 SEEN Urine Mucus 0 SEEN Acetone Level POC Glucose 147 H 12/01/19 12/01/19 12/01/19 07:04 08:29 11:17 Sodium Potassium Chloride Carbon Dioxide Anion Gap BUN Creatinine Estim Creat Clear Calc Est GFR (MDRD) Af Amer Est GFR (MDRD) Non-Af BUN/Creatinine Ratio Glucose Hemoglobin A1c Calcium Phosphorus Magnesium Total Bilirubin Direct Bilirubin AST ALT Alkaline Phosphatase Total Protein Albumin Globulin Urine Color Urine Clarity Urine pH Ur Specific [place] Urine Protein Urine Glucose (UA) Urine Ketones Urine Occult Blood Urine Nitrite Urine Bilirubin Urine Urobilinogen Ur Leukocyte Esterase Urine RBC Urine WBC Ur Squamous Epith Cells Urine Bacteria Urine Mucus Acetone Level POC Glucose 157 H 168 H 162 H 12/01/19 12/01/19 14:45 15:25 Sodium Cancelled Cancelled Potassium Cancelled Cancelled Chloride Cancelled Cancelled Carbon Dioxide Cancelled Cancelled Anion Gap Cancelled Cancelled BUN Cancelled Cancelled Creatinine Cancelled Cancelled Estim Creat Clear Calc Cancelled Cancelled Est GFR (MDRD) Af Amer Cancelled Cancelled Est GFR (MDRD) Non-Af Cancelled Cancelled BUN/Creatinine Ratio Cancelled Cancelled Glucose Cancelled Cancelled Hemoglobin A1c Calcium Cancelled Cancelled Phosphorus Magnesium Total Bilirubin Direct Bilirubin AST ALT Alkaline Phosphatase Total Protein Albumin Globulin Urine Color Urine Clarity Urine pH Ur Specific [place] Urine Protein Urine Glucose (UA) Urine Ketones Urine Occult Blood Urine Nitrite Urine Bilirubin Urine Urobilinogen Ur Leukocyte Esterase Urine RBC Urine WBC Ur Squamous Epith Cells Urine Bacteria Urine Mucus Acetone Level POC Glucose Microbiology 11/30/19 09:20 Vomitus Gastric Occult Blood - Final Occult Blood Positive none Operations: None Procedures: None Summary of Care Provided: The patient is a 44 YO poorly controlled Type 1 diabetic with admissions to [facility] in March, April, Aug X 2 and September of 2019. Past medical history is also significant for tobacco dependence, anxiety/depression, alcoholic cardiomyopathy (normal coronaries in March 2016), SDH in Aug that required craniotomy at [facility], seizure disorder and alcoholism. He presented to the emergency department at [facility] on 11/30/2019 with altered mental status and generalized weakness. His mother reported that he has been drinking heavily recently. Admitting lab revealed a low sodium at 123, low potassium at 3.1, serum bicarb of 16 and a BUN of 44 with a creatinine of 2.42. Random blood sugar was 452 and he had a large amount of acetone. UA was negative for urinary tract infection and a chest x-ray showed no acute findings. He was admitted to the intensive care unit for another episode of DKA with hyponatremia and acute kidney injury likely secondary to dehydration. the DKA protocol was initiated. By 9 PM the anion gap had closed and the insulin infusion was discontinued. He was started on his regular insulin regimen. ELYTES were supplemented as needed. He ate a good breakfast and a good lunch and the blood sugars remained controlled. He denied Nausea, abdominal pain, SOB, lightheadedness and was ready to go home. Labs drawn just prior to DC showed a sodium of 137, potassium of 3.4, serum bicarb of 27, BUN of 8 and a creatinine of 0.9. He was given an additional 40 mEq of potassium prior to discharge. He was discharged home on all his previous medications and instructed to abstain from Alcohol, stick to the diabetic diet and take his insulin as instructed. I recommended to him that he consider looking into an inpt program for alcohol dependence. PHYSICAL EXAM: GENERAL: alert, oriented X 3, Cooperative, NAD ORAL: moist mucosa, no mucosal lesions NECK: No JVD, supple, trachea midline LUNGS: CTA, symmetric chest expansion HEART: RRR, Normal S1 and S2, no rub, no gallop ABDOMEN: soft, NT, ND, BS present, no guarding with palpation EXTREMITIES: no edema, no cyanosis, no calf tenderness SKIN: No rashes, no breakdown NEUROLOGIC: no focal neurologic deficits PSYCH: appropriate, normal affect, pleasant This note was generated with [employer] dictation software. It may contain incorrect words, spelling, and punctuation that were not noted in checking the note before signing. Patient Problems: Active and Suspected Problems (Last Reviewed 10/31/19 @ 15:32 by Aris Nelson MD) Dehydration (Acute) Hypokalemia (Acute) Hypophosphatemia (Acute) Acute kidney injury (Acute) - Physical Exam Vitals/I&O's: Vital Signs Temp Pulse Resp BP Pulse Ox 98.4 F 71 12 145/90 H 99 12/01/19 14:00 12/01/19 15:00 12/01/19 15:00 12/01/19 15:00 12/01/19 15:00 Oxygen Delivery Method Room Air Weight: 148 lb 12.992 oz Body Mass Index (BMI) 19.2 Finger Stick Blood Glucose 180 Intake and Output for Last 24 Hours 11/29/19 11/30/19 12/01/19 23:59 23:59 23:59 Intake Total 5962.00 / 5962.00 1689.5333 / 1689.5333 Output Total 800 / 800 1550 / 1550 Balance 5162.00 / 5162.00 139.5333 / 139.5333 Microbiology Past 72 Hours 11/30/19 09:20 Vomitus Gastric Occult Blood - Final Occult Blood Positive Laboratory Results 11/30/19 16:03: POC Glucose 238 H 11/30/19 16:15: Sodium 132 L, Potassium 3.5, Chloride 101, Carbon Dioxide 22.0, Anion Gap 9, BUN 25 H, Creatinine 1.46 H, Estim Creat Clear Calc 59.43, Est GFR (MDRD) Af Amer 68, Est GFR (MDRD) Non-Af 56 L, BUN/Creatinine Ratio 17.1, Glucose 245 H, Calcium 7.1 L 11/30/19 17:11: POC Glucose 203 H 11/30/19 17:57: POC Glucose 193 H 11/30/19 19:17: POC Glucose 183 H 11/30/19 20:00: Sodium 134 L, Potassium 3.4 L, Chloride 102, Carbon Dioxide 22.0, Anion Gap 10, BUN 20 H, Creatinine 1.32 H, Estim Creat Clear Calc 65.73, Est GFR (MDRD) Af Amer 76, Est GFR (MDRD) Non-Af 63, BUN/Creatinine Ratio 15.2, Glucose 202 H, Calcium 7.0 L 11/30/19 20:01: POC Glucose 193 H 11/30/19 21:09: POC Glucose 172 H 11/30/19 22:13: POC Glucose 169 H 11/30/19 22:49: POC Glucose 180 H 12/01/19 00:35: POC Glucose 155 H 12/01/19 03:50: Magnesium 2.1, Total Bilirubin 1.00, Direct Bilirubin 0.25, AST 23, ALT 61, Alkaline Phosphatase 97, Total Protein 6.0 L, Albumin 3.3, Globulin 2.7 12/01/19 03:50: Sodium 133 L, Potassium 3.0 L, Chloride 101, Carbon Dioxide 23.0, Anion Gap 9, BUN 13, Creatinine 1.13, Estim Creat Clear Calc 76.78, Est GFR (MDRD) Af Amer 91, Est GFR (MDRD) Non-Af 75, BUN/Creatinine Ratio 11.5, Glucose 158 H, Calcium 7.5 L 12/01/19 03:50: Phosphorus 1.0 L* 12/01/19 03:50: Acetone Level SMALL H 12/01/19 03:50: Hemoglobin A1c 9.0 H 12/01/19 04:00: Urine Color Yellow, Urine Clarity Sl Cldy, Urine pH 6.5, Ur Specific [place] 1.010, Urine Protein 15 H, Urine Glucose (UA) 100 H, Urine Ketones 50 H, Urine Occult Blood Negative, Urine Nitrite Negative, Urine Bilirubin Negative, Urine Urobilinogen Normal, Ur Leukocyte Esterase 25 H, Urine RBC 0 SEEN, Urine WBC 0-5 SEEN, Ur Squamous Epith Cells 0-5 SEEN, Urine Bacteria 0 SEEN, Urine Mucus 0 SEEN 12/01/19 04:05: POC Glucose 147 H 12/01/19 07:04: POC Glucose 157 H 12/01/19 08:29: POC Glucose 168 H 12/01/19 11:17: POC Glucose 162 H 12/01/19 14:45: Sodium Cancelled, Potassium Cancelled, Chloride Cancelled, Carbon Dioxide Cancelled, Anion Gap Cancelled, BUN Cancelled, Creatinine Cancelled, Estim Creat Clear Calc Cancelled, Est GFR (MDRD) Af Amer Cancelled, Est GFR (MDRD) Non-Af Cancelled, BUN/Creatinine Ratio Cancelled, Glucose Cancelled, Calcium Cancelled 12/01/19 15:25: Sodium Cancelled, Potassium Cancelled, Chloride Cancelled, Carbon Dioxide Cancelled, Anion Gap Cancelled, BUN Cancelled, Creatinine Cancelled, Estim Creat Clear Calc Cancelled, Est GFR (MDRD) Af Amer Cancelled, Est GFR (MDRD) Non-Af Cancelled, BUN/Creatinine Ratio Cancelled, Glucose Cancelled, Calcium Cancelled Current Medications Acetaminophen (Tylenol) 650 mg PO Q6H PRN PRN PRN Reason: Pain Score 1-3/Temp > 100.7 F Al Hydroxide/Mg Hydroxide (Mylanta Ii) 30 ml PO Q6H PRN PRN PRN Reason: Gastric Burning Last Admin: 11/30/19 23:43 Dose: 30 ml Documented by: Albuterol/Ipratropium (Duoneb) 3 ml INHALATION Q4H.RT PRN PRN Reason: SHORTNESS OF BREATH Carvedilol (Coreg) 3.125 mg PO BIDCM [facility] Last Admin: 12/01/19 08:38 Dose: 3.125 mg Documented by: Glucagon () 1 mg IM .X1 PRN PRN Reason: Hypoglycemia Guaifenesin (Robitussin) 10 ml PO Q4H PRN PRN PRN Reason: COUGH Heparin Sodium (Beef Lung) () 50 units IV UD PRN PRN Reason: PICC Line Heparin Flush Thiamine HCl 100 mg/ Sodium (Chloride) 51 mls @ 200 mls/hr IV DAILY [facility] Last Infusion: 12/01/19 12:28 Dose: Infused Documented by: Levetiracetam () 1,000 mg in 100 mls @ 400 mls/hr IV Q12 [facility] Last Infusion: 12/01/19 09:25 Dose: Infused Documented by: Levetiracetam 500 mg/ Sodium (Chloride) 105 mls @ 400 mls/hr IV Q12 [facility] Last Infusion: 12/01/19 10:30 Dose: Infused Documented by: Folic Acid 1 mg/ Sodium (Chloride) 50.2 mls @ 200 mls/hr IV DAILY [facility] Last Infusion: 12/01/19 11:10 Dose: Infused Documented by: Dextrose (Dextrose 10%-Water) 250 mls @ 999 mls/hr IV .Q16M PRN; Protocol PRN Reason: HYPOGLYCEMIA Pantoprazole Sodium 40 mg/ (Sodium Chloride) 110 mls @ 330 mls/hr IV BID [facility] Last Infusion: 12/01/19 10:50 Dose: Infused Documented by: Sodium Chloride () 250 mls @ 15 mls/hr IV .[id number] PRN PRN Reason: Saline Flush Insulin Glargine (Lantus (Bkc)) 25 units SC DAILY [facility] Last Admin: 12/01/19 08:39 Dose: 25 units Documented by: Insulin Human Lispro (Humalog Kwikpen (Bkc)) 4 unit SC TIDAC [facility] Last Admin: 12/01/19 11:19 Dose: 4 u Documented by: Insulin Human Lispro (Humalog Kwikpen (Bkc)) 0 unit SC ACHS [facility]; Protocol Last Admin: 12/01/19 11:19 Dose: 1 units Documented by: Metoprolol Tartrate (Lopressor (Beta Alan)) 5 mg IV Q6H PRN PRN Reason: TO CONTROL HEART RATE Morphine Sulfate () 2 mg IV Q3H PRN PRN PRN Reason: Pain Score 4-10/10 Nutritional Formula (Lactose Free) (Glucerrosa isela Massey) 120 ml PO 4X/DAY [facility] Last Admin: 12/01/19 14:19 Dose: Not Given Documented by: Ondansetron HCl (Zofran) 4 mg IV Q8H PRN PRN PRN Reason: NAUSEA/VOMITING Last Admin: 11/30/19 09:31 Dose: 4 mg Documented by: Promethazine HCl (Phenergan) 12.5 mg IV Q6H PRN PRN PRN Reason: Breakthrough Nausea/Vomiting Last Admin: 11/30/19 08:58 Dose: 12.5 mg Documented by: Senna/Docusate Sodium (Senokot-S, Mary-Colace) 2 tablet PO BID PRN PRN Reason: Constipation Sodium Chloride () 10 - 40 ml IV UD PRN PRN Reason: Open End PICC Flush Last Admin: 11/30/19 21:12 Dose: 20 ml Documented by: Sodium Chloride (0.9% Nacl (Sterile) Posiflush) 10 - 40 ml IV UD PRN PRN Reason: Port access or dressing change Discharge Activity: Return to Normal Activity Call your doctor if you observe: Fever of 101 or Higher, Inability to urinate, Shortness of breath, Dizziness, Fainting spells, Chest pain Home Medications: Medications to take at Discharge levetiracetam 500 mg tablet 1,500 mg PO BID 01/18/18 mirtazapine 15 mg tablet 30 mg PO QHS 01/18/18 Folic Acid 1 tab PO DAILY 30 Days #30 tab 04/16/19 Atorvastatin Calcium 20 mg PO DAILY 04/22/19 Carvedilol 3.125 mg PO BID 05/13/19 Bupropion HCl [Bupropion Xl] 150 mg PO DAILY 09/17/19 Melatonin 6 mg PO QHS 09/17/19 Thiamine HCl [Vitamin B-1] 100 mg PO DAILY 09/17/19 acamprosate 333 mg tablet,delayed release 333 mg PO TID tab 10/31/19 insulin glargine 100 unit/mL (3 mL) subcutaneous pen 25 unit SC DAILY 10/31/19 insulin lispro 100 unit/mL subcutaneous pen 5 unit SC TID 10/31/19 Albuterol Inhaler [Ventolin Hfa] 1 - 2 puff INHALATION Q4H PRN PRN 11/30/19 Oxycodone [Oxyir] 5 mg PO TID PRN 11/30/19 Primary Care Physician: Moni Cintron MD [Primary Care Provider] - Please follow up with your Primary Care Physician in: within the next week Minutes spent on discharge:: 30 Medical Necessity - Tobacco Use Smoking Status: Current every day smoker Tobacco Use: Cigarettes Meaningful Use Info Meaningful Use Diagnoses (Choose all that apply): None applicable Code Visit Inpatient E&M: 28811 Disch Hosp
[2019-12-01 16:26] LABS: Anion Gap 5 (5-15); BUN 8 mg/dL (7-18); BUN/Creat Ratio 8.9 RATIO (10-20); Calcium,Total 8.4 mg/dL (8.5-10.1); Chloride 105 mmol/L (98-107); EST Glomerular Filtration Rate 98 mL/min (>60); Est Glom Filt Rate - Afr Amer 119 mL/min (>60); Estimated Creatinine Clearance 101.04 ml/min; Glucose 137 mg/dL (74-106); Potassium 3.4 mmol/L (3.5-5.1); Sodium Level 137 mmol/L (136-145)
--- NOTE | 2019-12-02 14:02 | CASEMGMT ---
[facility] CM DC PHONE CALL DC DATE: 12.01.2019 DC Disposition: [facility] Diagnosis on Discharge: Dehydration, Hypokalemia LACE/STRATA: 09/03 Attempted call to phone, message machine did not have correct name identifier. # checked in chart- no message left. Gallito DAVISN RN AC
== END 2019-12-01 17:00 | disposition home or self-care (01) | DRG 638 ==
LOC: ED 07:27 → ICU 11:23
PROVIDERS: Admitting Provider Internal Medicine; Emergency Provider Emergency Medicine; Family Provider Internal Medicine; PCP Internal Medicine; Visit Provider Internal Medicine
DX: E10.10 Type 1 diabetes mellitus with ketoacidosis without coma (principal); N17.9 Acute kidney failure, unspecified; I42.6 Alcoholic cardiomyopathy; E87.1 Hypo-osmolality and hyponatremia; R56.1 Post traumatic seizures; Z79.4 Long term (current) use of insulin; E87.6 Hypokalemia; E86.0 Dehydration; E83.39 Other disorders of phosphorus metabolism; F32.9 Major depressive disorder, single episode, unspecified; F41.9 Anxiety disorder, unspecified; F17.210 Nicotine dependence, cigarettes, uncomplicated; F10.20 Alcohol dependence, uncomplicated; Z91.11 Patient's noncompliance with dietary regimen; Z91.14 Patient's other noncompliance with medication regimen
CPT/HCPCS: 36415; 71045; 80048; 80076; 80320; 81001; 82009; 82271; 82803; 82962; 82977; 83036; 83735; 84100; 85025; 87641; 93005; 97802; 99251; 99285; J7030; J7040; A4216; G0463; G0480; J2405; J3490; J7799

== ENCOUNTER 2019-12-07 06:00 | Inpatient (IN) | payer MEDICARE, MEDICAID, SELFPAY ==
[2019-11-30 08:49] VITALS: BMI 19.2
[2019-12-07] VITALS (27 sets, daily range): BP systolic 90–146; BP diastolic 54–83; PULSE 82–121; RESP 12–19; TEMP 36.2–36.8; O2SAT 98–100; BMI 18.6; BMI 19.1; BMI 63.9
[2019-12-07 06:11] LABS: Bedside Glucose > 500 mg/dL (70-110)
--- NOTE | 2019-12-07 06:16 | EKG12_ITS ---
Test Reason : SOB Blood Pressure : / mmHG Vent. Rate : 121 BPM Atrial Rate : 121 BPM P-R Int : 124 ms QRS Dur : 090 ms QT Int : 362 ms P-R-T Axes : 079 037 070 degrees QTc Int : 514 ms Sinus tachycardia Biatrial enlargement Abnormal ECG Confirmed by JAIDEN GEORGE, SRAVAN ([id number]), make up editor JD BEARDEN ([id number]) on 12/09/2019 10:01:29 AM Referred By: Mikey Dey Confirmed By:SRAVAN HWANG MD
[2019-12-07] MEDS: 0.9% Normal Saline 1,000 ML 1000 ML IV ×2 (06:31→06:32)
[2019-12-07 06:38] LABS: Absolute Lymphocyte Count 1.57 X10^3/uL (0.83-4.51); Absolute Neutrophil Count 13.4 X10^3/uL (2.0-7.7); Basophil# 0.09 X10^3/uL; Basophil% 0.5 % (0-1); Eosinophil# 0.04 X10^3/uL; Eosinophils% 0.2 % (0-5); Hematocrit 47.1 % (40-54); Hemoglobin 16.2 g/dL (13.0-16.5); Lymphocyte # 1.57 X10^3/ul (4.0); Lymphocyte % 9.1 % (19-41); Mean Corp Hgb Conc 34.4 g/dL (32-36); Mean Corpuscular Hgb 30.6 pg (27.0-32.0); Mean Corpuscular Volume 88.9 fL (80-94); Mean Platelet Vol. 10.2 fl (6.2-12.0); Monocyte# 1.85 X10^3/uL; Monocyte% 10.8 % (0-10); NRBC Flagged by Analyzer 0 % (0-5); Neutrophil # 13.38 X10^3/uL (2.7-7.7); Neutrophil % 77.9 % (47-70); POSITIVE DIFFERENTIAL YES; Platelet Count 446 K/mm3 (150-450); RBC Distribution Width CV 12.4 % (11.6-14.6); RBC Distribution Width SD 40.6 fl (35.1-43.9); White Blood Count 17.2 K/mm3 (4.4-11.0)
[2019-12-07 06:44] LABS: Differential Indicated SCAN CRITERIA MET
[2019-12-07 06:46] LABS: Alcohol, Blood (Medical)-Serum < 3.0 mg/dL
[2019-12-07 06:48] LABS: Anion Gap 28 (5-15); BUN 18 mg/dL (7-18); BUN/Creat Ratio 8.9 RATIO (10-20); Calcium,Total 8.8 mg/dL (8.5-10.1); Chloride 89 mmol/L (98-107); Creatinine, Serum 2.03 mg/dL (0.70-1.30); EST Glomerular Filtration Rate 38 mL/min (>60); Est Glom Filt Rate - Afr Amer 46 mL/min (>60); Estimated Creatinine Clearance 41.28 ml/min; Glucose 643 mg/dL (74-106); Potassium 4.2 mmol/L (3.5-5.1); Sodium Level 124 mmol/L (136-145)
--- NOTE | 2019-12-07 06:56 | ED.DCSUM_ITS ---
History of Present Illness Chief Complaint: Hyperglycemia Narrative: Patient presents with weakness and fatigue. He has a history of multiple DKA. His blood sugars have been running high since yesterday. He stated he has not been giving himself insulin appropriately. He feels dehydrated. He said decreased oral intake. He was just discharged a week ago. He has not drank alcohol per patient since he left. However he is having difficulty managing his diabetes. Comes in for DKA evaluation again. Denies nausea or vomiting or diarrhea. - Past Medical History (1) Acute kidney injury Status: Acute (2) Altered mental status Status: Acute (3) DKA (diabetic ketoacidoses) Status: Acute (4) Dehydration Status: Acute (5) Hypokalemia Status: Acute (6) Hypophosphatemia Status: Acute (7) Alcoholic cardiomyopathy Status: Chronic (8) Anxiety and depression Status: Chronic (9) Diabetes type 1, uncontrolled Status: Chronic Comment: DKA w/ encephalopathy 03/2019 (10) Nicotine dependence Status: Chronic (11) Tobacco dependence Status: Chronic Past Medical History - Allergies and Home Meds Allergies/Adverse Reactions: Allergies zinc Allergy (Intermediate, Verified 12/07/19 06:01) Hives Prior records reviewed: Yes Past Medical History: - - See problem list Surgical History: noncontributory, - - Craniotomy with evacuation of intracranial hemorrhage Lives: With Family Smoking Status: Current every day smoker Alcohol: None, Sober - Sober for 1 week Drugs: None - Family History Maternal Family History: Family History (Last Reviewed 10/31/19 @ 15:32 by Aris Nelson MD) Mother Arthritis Thyroid disorder Father Diabetes Grandfather Diabetes Hypertension High cholesterol Grandmother Diabetes High cholesterol Arthritis Family History: Reports: No pertinent history Paternal Family History: Family History (Last Reviewed 10/31/19 @ 15:32 by Aris Nelson MD) Mother Arthritis Thyroid disorder Father Diabetes Grandfather Diabetes Hypertension High cholesterol Grandmother Diabetes High cholesterol Arthritis Family History: Reports: No pertinent history Review of Systems General: Denies: Chills, Fever, Sweats Eyes: Denies: Visual changes - bilaterally, Diplopia ENT: Denies: Rhinorrhea, Sore throat Cardiovascular: Denies: Chest pain, Palpitations Respiratory: Denies: Dyspnea, Cough, Dyspnea on exertion Gastrointestinal: Denies: Abdominal pain, Nausea, Vomiting, Diarrhea, Melena, Hematochezia Genitourinary: Denies: Dysuria, Hematuria, Frequency Musculoskeletal: Denies: Back pain, Extremity Pain Skin: Denies: Rash, Wounds Neurological: Reports: Weakness. Denies: Headache, Numbness Physical Exam Vital Signs/Narrative: Vital Signs Temp Pulse Resp BP Pulse Ox 12/07/19 06:01 97.1 F L 121 H 19 H 146/70 H 100 General: Well nourished, Well developed, No Acute Distress Head: Normocephalic, Atraumatic Eyes: Perrl, EOMI ENT: Moist mucous membranes, No rhinorrhea Neck: Supple, Nontender Cardiovascular: No murmurs, Tachycardia. Negative for: Regular rate, Regular rhythm Respiratory: No distress, CTA bilaterally, Chest nontender Abdomen: Soft, Nontender, Nondistended, Normal bowel sounds Back: Nontender, Normal Inspection Extremities: Nontender, No edema Skin: Normal color, No rash Neurological: Alert, Oriented x3, Cranial nerves II-XII grossly intact, Normal Strength, Normal Sensation Psychological: Normal affect, Normal Mood Diagnostic/Tx/Re-eval - Medical Decision Making Lab work shows the patient is back in diabetic ketoacidosis. EKG shows sinus tach at 121 he has a leukocytosis likely from his DKA. Sodium 124 with pseudohyponatremia secondary to hyperglycemia. Glucose 643. Creatinine shows acute renal insufficiency again at 2.0. Bicarb is 7.0. Anion gap is 28. Potassium is 4.2. Alcohol is negative. Acetone shows moderate levels. Patient given IV fluid boluses. Started on insulin drip again for diabetic ketoacidosis. Discussed with the hospitalist will be admitted to the intensive care unit. - Critical Care Time Critical care time (excluding procedures): 30-74 minutes ED Disposition - Plan for ED Patient: Disposition: Acute Care Hospital [facility] Diagnosis: Diabetic ketoacidosis, Dehydration, Acute kidney injury
[2019-12-07 07:06] LABS: Platelet Estimate SLT INC (ADEQ); Red Cell Morphology NORM C+C NORMAL (NORM C&C)
--- NOTE | 2019-12-07 07:12 | ED.RN ---
md aware of BGL prior to insulin starting, no new orders given.
--- NOTE | 2019-12-07 07:15 | HP.PCM_ITS ---
History of Present Illness Date of Admission: 12/07/19 Chief Complaint: Hyperglycemia The patient is a 44 year old M with a PMH as below who presents with hyperglycemia. He has had multiple relapses is into DKA, and states this time he was taking his insulin appropriately, but he told the ER physician that he is not been giving himself his insulin appropriately, he was drinking water couple of days ago and was feeling nauseated and threw up and he has had multiple episodes of emesis and was unable to keep up with his blood sugar. He says that he was very weak and tired but he has not been drinking any alcohol. He was just released last week for DKA. In the ER he was found to have a leukocytosis of 17.2 with a carbon dioxide of 7 and an anion gap of 28. His creatinine was 2.03 with a blood sugar of 643. Past Medical History Past Medical History (Chronic Problems): Chronic Problems (Last Reviewed 10/31/19 @ 15:32 by Aris Nelson MD) Anxiety and depression (Chronic) Tobacco dependence (Chronic) Diabetes type 1, uncontrolled (Chronic) DKA w/ encephalopathy 03/2019 Alcoholic cardiomyopathy (Chronic) Nicotine dependence (Chronic) Medical History: Medical History (Last Reviewed 10/31/19 @ 15:32 by Aris Nelson MD) Diabetes type 1, uncontrolled (Chronic) E10.65 DKA w/ encephalopathy 03/2019 Alcoholic cardiomyopathy (Chronic) I42.6 Nicotine dependence (Chronic) F17.200 Diabetic ketoacidosis Onset Date: 03/2019 E11.10 High cholesterol E78.00 history of vitamin deficiency Acute renal failure N17.9 Alcohol abuse F10.10 Anxiety F41.9 Dental caries K02.9 Depression F32.9 Dilated cardiomyopathy I42.0 Elevated liver enzymes R74.8 H/O sepsis Z86.19 Hyponatremia E87.1 Lactic acidosis E87.2 Left atrial enlargement I51.7 Mycoplasma pneumonia J15.7 NSVT (nonsustained ventricular tachycardia) I47.2 Neuropathy G62.9 Prolonged QT interval R94.31 Seizure disorder G40.909 Steatosis of liver K76.0 Thrombocytopenia D69.6 ELIZABETH (acute kidney injury) N17.9 Metabolic encephalopathy Onset Date: 03/2019 G93.41 Diabetes type 1, controlled E10.9 dx : 08/2001 last exacerbation : dka : 05/13 hypoglycemic episode : never er visit : 05/13 Allergies zinc Allergy (Intermediate, Verified 12/07/19 06:01) Hives Home Medications: Ambulatory Orders Medication Instructions Recorded levetiracetam 500 mg tablet 1,500 mg PO BID 01/18/18 mirtazapine 15 mg tablet 30 mg PO QHS 01/18/18 Folic Acid 1 tab PO DAILY 30 Days #30 tab 04/16/19 Atorvastatin Calcium 20 mg PO DAILY 04/22/19 Carvedilol 3.125 mg PO BID 05/13/19 Bupropion HCl [Bupropion Xl] 150 mg PO DAILY 09/17/19 Melatonin 6 mg PO QHS 09/17/19 Thiamine HCl [Vitamin B-1] 100 mg PO DAILY 09/17/19 acamprosate 333 mg tablet,delayed 333 mg PO TID tab 10/31/19 release insulin glargine 100 unit/mL (3 25 unit SC DAILY 10/31/19 mL) subcutaneous pen insulin lispro 100 unit/mL 5 unit SC TID 10/31/19 subcutaneous pen Albuterol Inhaler [Ventolin Hfa] 1 - 2 puff INHALATION Q4H PRN PRN 11/30/19 Oxycodone [Oxyir] 5 mg PO TID PRN 11/30/19 Lamotrigine [Lamictal] 100 mg PO BID 12/07/19 Surgical History: Surgical History (Last Reviewed 10/31/19 @ 15:32 by Aris Nelson MD) History of left heart catheterization Onset Date: 04/18/16 Z98.890 Hx of tonsillectomy Z98.890, Z90.89 Surgical History: noncontributory, - - Craniotomy with evacuation of intracranial hemorrhage Psychiatric History: No pertinent psych hx, Anxiety, Depression Lives: With Family Smoking Status: Current every day smoker Tobacco Use: Cigarettes Alcohol: None, Sober - Sober for 1 week Drugs: None - *Family History Maternal Family History: Family History (Last Reviewed 10/31/19 @ 15:32 by Aris Nelson MD) Mother Arthritis Thyroid disorder Father Diabetes Grandfather Diabetes Hypertension High cholesterol Grandmother Diabetes High cholesterol Arthritis Paternal Family History: Family History (Last Reviewed 10/31/19 @ 15:32 by Aris Nelson MD) Mother Arthritis Thyroid disorder Father Diabetes Grandfather Diabetes Hypertension High cholesterol Grandmother Diabetes High cholesterol Arthritis Review of Systems Constitutional: Reports: Fever, Weakness, Fatigue. Denies: Chills HEENT: Denies: Head Aches, Sinus Congestion, Sinus Drainage Cardiovascular: Denies: Chest Pain, Palpitations Respiratory: Denies: Cough, Shortness of breath at rest, Sputum production Gastrointestinal: Reports: Nausea, Vomiting. Denies: Abdominal Pain Genitourinary: Denies: Dysuria Musculoskeletal: Denies: Joint Pain, Joint Tenderness Skin: Denies: Rash, Wounds Neurological: Denies: Numbness, Tingling, Focal weakness Psychiatric: Denies: Anxiety, Depression Endocrine: Reports: Polydipsia Hematologic/ Lymphatic: Denies: Easy Bruising, Easy Bleeding VTE Information - Inpt Only VTE Present on Admission: No Patient Problems: Active and Suspected Problems (Last Reviewed 10/31/19 @ 15:32 by Aris Nelson MD) Dehydration (Acute) Acute kidney injury (Acute) - Physical Exam Vitals/I&O's: Vital Signs Temp Pulse Resp BP Pulse Ox 97.1 F L 103 H 14 134/83 H 100 12/07/19 06:01 12/07/19 07:10 12/07/19 07:10 12/07/19 07:10 12/07/19 06:01 Oxygen Delivery Method Room Air Weight: 137 lb 2.04 oz Body Mass Index (BMI) 18.6 Finger Stick Blood Glucose 600 Intake and Output for Last 24 Hours 12/05/19 12/06/19 12/07/19 23:59 23:59 23:59 Intake Total 16.67 / 16.67 Balance 16.67 / 16.67 General: Alert, Oriented x3, Cooperative, No apparent distress, - - Speech is slow HEENT: Atraumatic, PERRLA, EOMI, Normocephalic Oral: Dry Mucosa Neck: Supple, No JVD Lungs: Clear to auscultation, Normal air movement, No rhonchi, No wheeze, No rales Cardiovascular: Regular Rhythm, Normal S1, Normal S2, No murmurs, Tachycardic Abdomen: Soft, Non Tender, Non-Distended, No Hepato-splenomegaly Extremities: No edema, Capillary Refill Less than 3 Seconds Skin: No rashes, No breakdown Neurological: Neuro grossly intact, Sensory exam intact to light touch and pain Psych/Mental Status: - - Speech is slow, this is normal for him when he gets in the DKA Laboratory Results 12/07/19 06:06: POC Glucose > 500 H* 12/07/19 06:25: WBC 17.2 H, RBC 5.30, Hgb 16.2, Hct 47.1, MCV 88.9, MCH 30.6, MCHC 34.4, RDW Std Deviation 40.6, RDW Coeff of Omayra 12.4, Plt Count 446, MPV 10.2, Immature Gran % (Auto) 1.500 H, Neut % (Auto) 77.9 H, Lymph % (Auto) 9.1 L , Payette % (Auto) 10.8 H, Eos % (Auto) 0.2, Baso % (Auto) 0.5, Absolute Neuts (auto) 13.4 H, Absolute Lymphs (auto) 1.57, Nucleated RBC % 0, Differential Comment SEE COMMENT, Diff Path Review Jade montoya, Platelet Estimate SLT INC, RBC Morphology NORM C+C 12/07/19 06:25: Sodium 124 L, Potassium 4.2, Chloride 89 L, Carbon Dioxide 7.0 L*, Anion Gap 28 H, BUN 18, Creatinine 2.03 H, Estim Creat Clear Calc 41.28, Est GFR (MDRD) Af Amer 46 L, Est GFR (MDRD) Non-Af 38 L, BUN/Creatinine Ratio 8.9 L , Glucose 643 H*, Calcium 8.8 12/07/19 06:25: Ethyl Alcohol < 3.0 12/07/19 06:25: Acetone Level MODERATE H Current Medications Sodium Chloride () 1,000 mls @ 1,000 mls/hr IV .Q1H OZZIE Stop: 12/07/19 08:19 Last Admin: 12/07/19 06:32 Dose: 1,000 mls/hr Documented by: Insulin Human Lispro 100 unit/ (Sodium Chloride) 100 mls @ 6.22 mls/hr IV .Q16H5M OZZIE; Protocol Sodium Chloride () 1,000 mls @ 1,000 mls/hr IV .Q1H ONE Stop: 12/07/19 07:52 Dextrose (Dextrose 10%-Water) 250 mls @ 999 mls/hr IV .Q16M PRN; Protocol PRN Reason: HYPOGLYCEMIA Assessment/Plan All Active Problems (Last Reviewed 10/31/19 @ 15:32 by Aris Nelson MD) Dehydration (Acute) Hypokalemia (Acute) Hypophosphatemia (Acute) Altered mental status (Acute) Acute kidney injury (Acute) DKA (diabetic ketoacidoses) (Acute) 1. DKA/type 1 diabetes/ELIZABETH/hyponatremia/leukocytosis -We will admit to ICU and initiate DKA protocol with insulin drip -Continue with IV fluid boluses and BMP every 4 hours -He is also severely hyponatremic to 124, bicarb of 7, anion gap of 28, creatinine of 2.03 -Baseline creatinine is less than 1 -Continue with insulin drip -Leukocytosis is 17.2 which is likely secondary to hemoconcentration and stress -A1c in November 02.4 2. Alcohol abuse -He has a history of alcohol abuse however he states that he has not been drinking -We will hold off of alcohol withdrawal protocol, he does not tolerate Librium very well so we do need to do something we will go with Ativan 3. HTN/HLD/dilated cardiomyopathy which is alcohol induced -can resume his home medications -Initially his EF was 15% however it has improved with decrease in his alcohol intake -His most recent echocardiogram in 05/21/19 had an EF of 50% with normal diastole 4. Seizure disorder -Currently stable -restart Keppra twice daily DVT: Lovenox Code Visit Inpatient E&M: 58756 Init Hosp L3
[2019-12-07 07:31] LABS: Bedside Glucose > 500 mg/dL (70-110)
[2019-12-07 08:06] LABS: Bedside Glucose 463 mg/dL (70-110)
[2019-12-07] MEDS: 0.9% Normal Saline 1,000 ML 500 ML IV (08:38)
[2019-12-07 09:00] LABS: Bedside Glucose 347 mg/dL (70-110)
--- NOTE | 2019-12-07 09:33 | CM.UR ---
RN CM Assessment Patient sleeping easily aroused. Introduced role of RN CM to patient.? Patient is alert, oriented and able?to participate in RN CM Assessment. Care providers, pharmacy, and demographics verified. Presentation: Admit Dx: weakness and fatigue Re-Admit: Yes Barriers/Issues: Per documentation patient is non compliant with insulin and medications. Drinks alcohol regularly. PCP: Moni Cintron Specialists: Candelario- Dr Nelson. [facility] Intermittently Preferred [facility]acy: [facility] Insurance: [facility], [facility] Rx Benefit:?Yes LNOK: Parents Hedy and Kalpana Smart LW/HPOA: None, Refused offered information or services on this admission Living Arrangements:? Lives with parents in a SS home, no steps to enter home ADL?s: Independent with ambulation and ADLs Transportation: Parents DME: None other than diabetic supplies- [facility], [place] HHC: None SNF: None Goal: Home and does not think will have any needs. Denies any issues/concerns/or questions with DC planning at this time. Aware CM remains available for any emerging needs. DC PLAN: Home with no anticipated needs identified at this time. Lillie Holley RN, CCM.
[2019-12-07 10:01] LABS: Bedside Glucose 237 mg/dL (70-110)
[2019-12-07 10:21] LABS: Anion Gap 19 (5-15); BUN 15 mg/dL (7-18); BUN/Creat Ratio 11.8 RATIO (10-20); Calcium,Total 7.4 mg/dL (8.5-10.1); Chloride 99 mmol/L (98-107); Creatinine, Serum 1.27 mg/dL (0.70-1.30); EST Glomerular Filtration Rate 66 mL/min (>60); Est Glom Filt Rate - Afr Amer 79 mL/min (>60); Estimated Creatinine Clearance 67.79 ml/min; Glucose 236 mg/dL (74-106); Potassium 3.6 mmol/L (3.5-5.1); Sodium Level 130 mmol/L (136-145)
[2019-12-07] MEDS: 0.9% Normal Saline 1,000 ML 250 ML IV (10:44)
[2019-12-07] MEDS: Potassium Chloride 10mEq/100mL 10 MEQ/100 ML IV.SOLN. 100 MEQ IV BOLUS ×8 (10:51→21:53)
[2019-12-07] MEDS: levETIRAcetam 750 MG Tablet 1500 MG PO ×2 (10:54→20:50)
[2019-12-07] MEDS: Thiamine Hydrochloride 100 MG Tablet PO (10:54)
[2019-12-07] MEDS: Carvedilol 3.125 MG TABLET PO ×2 (10:54→20:50)
[2019-12-07] MEDS: buPROPion (XL) 150 MG TABLET.XL PO (10:54)
[2019-12-07] MEDS: Enoxaparin 40 MG/0.4 ML Syringe SC (11:00)
[2019-12-07 11:01] LABS: Bedside Glucose 203 mg/dL (70-110)
[2019-12-07] MEDS: Dext 5%-0.45% NS 1,000 ML 150 ML IV ×2 (11:19→17:59)
[2019-12-07 12:06] LABS: Bedside Glucose 187 mg/dL (70-110)
[2019-12-07 13:06] LABS: Bedside Glucose 193 mg/dL (70-110)
[2019-12-07 14:05] LABS: Bedside Glucose 194 mg/dL (70-110)
[2019-12-07 14:28] LABS: Anion Gap 10 (5-15); BUN 12 mg/dL (7-18); BUN/Creat Ratio 10.9 RATIO (10-20); Calcium,Total 7.3 mg/dL (8.5-10.1); Chloride 103 mmol/L (98-107); EST Glomerular Filtration Rate 77 mL/min (>60); Est Glom Filt Rate - Afr Amer 94 mL/min (>60); Estimated Creatinine Clearance 78.26 ml/min; Glucose 188 mg/dL (74-106); Potassium 4.3 mmol/L (3.5-5.1); Sodium Level 130 mmol/L (136-145)
[2019-12-07 15:06] LABS: Bedside Glucose 186 mg/dL (70-110)
[2019-12-07 16:11] LABS: Bedside Glucose 165 mg/dL (70-110)
[2019-12-07 17:11] LABS: Bedside Glucose 174 mg/dL (70-110)
[2019-12-07 18:06] LABS: Bedside Glucose 152 mg/dL (70-110)
[2019-12-07 18:19] LABS: Anion Gap 10 (5-15); BUN 11 mg/dL (7-18); BUN/Creat Ratio 10.8 RATIO (10-20); Calcium,Total 7.4 mg/dL (8.5-10.1); Chloride 103 mmol/L (98-107); Creatinine, Serum 1.02 mg/dL (0.70-1.30); EST Glomerular Filtration Rate 84 mL/min (>60); Est Glom Filt Rate - Afr Amer 102 mL/min (>60); Glucose 149 mg/dL (74-106); Potassium 3.4 mmol/L (3.5-5.1); Sodium Level 132 mmol/L (136-145)
[2019-12-07 19:31] LABS: Bedside Glucose 132 mg/dL (70-110)
[2019-12-07 20:36] LABS: Bedside Glucose 175 mg/dL (70-110)
[2019-12-07] MEDS: lamoTRIgine 100 MG Tablet PO (20:49)
[2019-12-07] MEDS: Atorvastatin Calcium 20 MG Tablet PO (20:50)
[2019-12-07] MEDS: MELATONIN 3 MG TABLET 6 MG PO (20:50)
[2019-12-07] MEDS: Mirtazapine 30 MG Tablet PO (21:05)
[2019-12-07] MEDS: Insulin Lispro 100 UNIT/ML INSULN.PEN SC (21:53)
[2019-12-07 21:55] LABS: Bedside Glucose 180 mg/dL (70-110)
[2019-12-08] VITALS (11 sets, daily range): BP systolic 134–142; BP diastolic 72–78; PULSE 85–96; RESP 16–18; TEMP 36.5–37; O2SAT 98–100
[2019-12-08] MEDS: Dext 5%-0.45% NS 1,000 ML 100 ML IV (03:47)
[2019-12-08 05:59] LABS: Anion Gap 11 (5-15); BUN 8 mg/dL (7-18); BUN/Creat Ratio 8.6 RATIO (10-20); Calcium,Total 7.8 mg/dL (8.5-10.1); Chloride 99 mmol/L (98-107); Creatinine, Serum 0.92 mg/dL (0.70-1.30); EST Glomerular Filtration Rate 95 mL/min (>60); Est Glom Filt Rate - Afr Amer 114 mL/min (>60); Estimated Creatinine Clearance 96.79 ml/min; Glucose 280 mg/dL (74-106); Magnesium 1.7 mg/dL (1.6-2.6); Potassium 3.7 mmol/L (3.5-5.1); Sodium Level 129 mmol/L (136-145)
[2019-12-08 06:47] LABS: Absolute Lymphocyte Count 3.03 X10^3/uL (0.83-4.51); Absolute Neutrophil Count 2.7 X10^3/uL (2.0-7.7); Basophil# 0.02 X10^3/uL; Basophil% 0.3 % (0-1); Eosinophil# 0.13 X10^3/uL; Eosinophils% 1.9 % (0-5); Hematocrit 32.3 % (40-54); Hemoglobin 11.4 g/dL (13.0-16.5); Lymphocyte # 3.03 X10^3/ul (4.0); Lymphocyte % 44.7 % (19-41); Mean Corp Hgb Conc 35.3 g/dL (32-36); Mean Corpuscular Hgb 30.1 pg (27.0-32.0); Mean Corpuscular Volume 85.2 fL (80-94); Mean Platelet Vol. 9.9 fl (6.2-12.0); Monocyte# 0.89 X10^3/uL; Monocyte% 13.1 % (0-10); NRBC Flagged by Analyzer 0 % (0-5); Neutrophil # 2.68 X10^3/uL (2.7-7.7); Neutrophil % 39.6 % (47-70); Platelet Count 302 K/mm3 (150-450); RBC Distribution Width CV 12.7 % (11.6-14.6); RBC Distribution Width SD 39.2 fl (35.1-43.9); Red Blood Count 3.79 M/mm3 (4.6-6.2); White Blood Count 6.8 K/mm3 (4.4-11.0)
[2019-12-08] MEDS: Insulin Lispro 100 UNIT/ML INSULN.PEN SC ×6 (08:32→22:09)
[2019-12-08] MEDS: Folic Acid 1 MG Tablet PO (08:33)
[2019-12-08] MEDS: Carvedilol 3.125 MG TABLET PO ×2 (08:33→22:09)
[2019-12-08] MEDS: lamoTRIgine 100 MG Tablet PO ×2 (08:34→22:09)
[2019-12-08] MEDS: levETIRAcetam 750 MG Tablet 1500 MG PO ×2 (08:34→22:09)
[2019-12-08] MEDS: Thiamine Hydrochloride 100 MG Tablet PO (08:35)
[2019-12-08] MEDS: buPROPion (XL) 150 MG TABLET.XL PO (08:35)
[2019-12-08] MEDS: Enoxaparin 40 MG/0.4 ML Syringe SC (08:36)
[2019-12-08 09:06] LABS: Bedside Glucose 315 mg/dL (70-110)
--- NOTE | 2019-12-08 09:57 | PCM.PN.HOSP ---
Patient Problems: Active and Suspected Problems (Last Reviewed 10/31/19 @ 15:32 by Aris Nelson MD) Dehydration (Acute) Acute kidney injury (Acute) Subjective: No issues overnight, still little bit slow with speech, appears little out of it Vitals/I&O's: Vital Signs Temp Pulse Resp BP Pulse Ox 98.6 F 85 16 134/77 H 98 12/08/19 04:40 12/08/19 07:02 12/08/19 04:40 12/08/19 04:40 12/08/19 04:40 Oxygen Delivery Method Room Air Weight: 145 lb 11.609 oz Body Mass Index (BMI) 19.1 Finger Stick Blood Glucose 175 Intake and Output for Last 24 Hours 12/06/19 12/07/19 12/08/19 23:59 23:59 23:59 Intake Total 4492.24 / 4492.24 1344.17 / 1344.17 Output Total 1400 / 1400 625 / 625 Balance 3092.24 / 3092.24 719.17 / 719.17 General: Alert, Oriented x3, Cooperative, No apparent distress, - - Speech is slow HEENT: Atraumatic, PERRLA, EOMI, Normocephalic Oral: Dry Mucosa Neck: Supple, No JVD Lungs: Clear to auscultation, Normal air movement, No rhonchi, No wheeze, No rales Cardiovascular: Regular Rhythm, Normal S1, Normal S2, No murmurs, Tachycardic Abdomen: Soft, Non Tender, Non-Distended, No Hepato-splenomegaly Extremities: No edema, Capillary Refill Less than 3 Seconds Skin: No rashes, No breakdown Neurological: Neuro grossly intact, Sensory exam intact to light touch and pain Psych/Mental Status: Normal affect, appropriate Laboratory Results 12/07/19 09:55: Sodium 130 L, Potassium 3.6, Chloride 99, Carbon Dioxide 12.0 L, Anion Gap 19 H, BUN 15, Creatinine 1.27, Estim Creat Clear Calc 67.79, Est GFR (MDRD) Af Amer 79, Est GFR (MDRD) Non-Af 66, BUN/Creatinine Ratio 11.8, Glucose 236 H, Calcium 7.4 L 12/07/19 09:55: POC Glucose 237 H 12/07/19 10:58: POC Glucose 203 H 12/07/19 12:00: POC Glucose 187 H 12/07/19 13:00: POC Glucose 193 H 12/07/19 14:00: Sodium 130 L, Potassium 4.3, Chloride 103, Carbon Dioxide 17.0 L, Anion Gap 10, BUN 12, Creatinine 1.10, Estim Creat Clear Calc 78.26, Est GFR (MDRD) Af Amer 94, Est GFR (MDRD) Non-Af 77, BUN/Creatinine Ratio 10.9, Glucose 188 H, Calcium 7.3 L 12/07/19 14:01: POC Glucose 194 H 12/07/19 15:00: POC Glucose 186 H 12/07/19 16:04: POC Glucose 165 H 12/07/19 17:08: POC Glucose 174 H 12/07/19 17:57: POC Glucose 152 H 12/07/19 18:00: Sodium 132 L, Potassium 3.4 L, Chloride 103, Carbon Dioxide 19.0 L, Anion Gap 10, BUN 11, Creatinine 1.02, Estim Creat Clear Calc 84.40, Est GFR (MDRD) Af Amer 102, Est GFR (MDRD) Non-Af 84, BUN/Creatinine Ratio 10.8, Glucose 149 H, Calcium 7.4 L 12/07/19 19:24: POC Glucose 132 H 12/07/19 20:31: POC Glucose 175 H 12/07/19 21:50: POC Glucose 180 H 12/08/19 04:55: WBC 6.8, RBC 3.79 L, Hgb 11.4 L, Hct 32.3 L, MCV 85.2, MCH 30.1, MCHC 35.3, RDW Std Deviation 39.2, RDW Coeff of Omayra 12.7, Plt Count 302, MPV 9.9, Immature Gran % (Auto) 0.400, Neut % (Auto) 39.6 L, Lymph % (Auto) 44.7 H, Archuleta % (Auto) 13.1 H, Eos % (Auto) 1.9, Baso % (Auto) 0.3, Absolute Neuts (auto) 2.7, Absolute Lymphs (auto) 3.03, Nucleated RBC % 0 12/08/19 04:55: Sodium 129 L, Potassium 3.7, Chloride 99, Carbon Dioxide 19.0 L, Anion Gap 11, BUN 8, Creatinine 0.92, Estim Creat Clear Calc 96.79, Est GFR (MDRD) Af Amer 114, Est GFR (MDRD) Non-Af 95, BUN/Creatinine Ratio 8.6 L, Glucose 280 H, Calcium 7.8 L, Magnesium 1.7 12/08/19 08:30: POC Glucose 315 H Current Medications Atorvastatin Calcium (Lipitor) 20 mg PO QHS [facility] Last Admin: 12/07/19 20:50 Dose: 20 mg Documented by: Bupropion HCl (Wellbutrin Xl) 150 mg PO DAILY [facility] Last Admin: 12/08/19 08:35 Dose: 150 mg Documented by: Carvedilol (Coreg) 3.125 mg PO BID [facility] Last Admin: 12/08/19 08:33 Dose: 3.125 mg Documented by: Dextrose (D50w Syringe) 0 gm IV X1 PRN; Protocol PRN Reason: HYPOGLYCEMIA Enoxaparin Sodium (Lovenox) 40 mg SC DAILY [facility] Last Admin: 12/08/19 08:36 Dose: 40 mg Documented by: Folic Acid (Folic Acid) 1 mg PO DAILY@0800 [facility] Last Admin: 12/08/19 08:33 Dose: 1 mg Documented by: Glucagon () 1 mg IM .X1 PRN PRN Reason: Hypoglycemia Sodium Chloride () 250 mls @ 15 mls/hr IV .[id number] PRN PRN Reason: Saline Flush Last Infusion: 12/08/19 00:44 Dose: Infused Documented by: Sodium Chloride () 250 mls @ 15 mls/hr IV .[id number] PRN PRN Reason: Additional IVPB Infusion Dextrose/Sodium Chloride () 1,000 mls @ 100 mls/hr IV .Q10H [facility] Last Infusion: 12/08/19 06:00 Dose: 100 mls/hr Documented by: Insulin Glargine (Lantus (Bkc)) 25 units SC DAILY [facility] Last Admin: 12/08/19 08:42 Dose: 25 units Documented by: Insulin Human Lispro (Humalog Kwikpen (Bkc)) 5 unit SC TIDAC [facility] Last Admin: 12/08/19 08:32 Dose: 5 units Documented by: Insulin Human Lispro (Humalog Kwikpen (Bkc)) 0 unit SC ACHS [facility]; Protocol Last Admin: 01/12/20 08:32 Dose: 6 u Documented by: Lamotrigine (Lamictal) 100 mg PO BID [facility] Last Admin: 12/08/19 08:34 Dose: 100 mg Documented by: Levetiracetam (Keppra Tablet) 1,500 mg PO BID [facility] Last Admin: 12/08/19 08:34 Dose: 1,500 mg Documented by: Melatonin (Melatonin) 6 mg PO QHS [facility] Last Admin: 12/07/19 20:50 Dose: 6 mg Documented by: Mirtazapine (Remeron) 30 mg PO QHS [facility] Last Admin: 12/07/19 21:05 Dose: 30 mg Documented by: Nicotine (Nicoderm Cq (Pbkc)) 14 mg TRANSDERM. DAILY [facility] Last Admin: 12/08/19 08:35 Dose: 14 mg Documented by: Oxycodone HCl (Oxyir) 5 mg PO TID PRN PRN PRN Reason: Pain Score 1-10/10 Sodium Chloride () 10 - 40 ml IV UD PRN PRN Reason: SALINE FLUSH Thiamine HCl (Vitamin B1) 100 mg PO DAILY [facility] Last Admin: 12/08/19 08:35 Dose: 100 mg Documented by: STROKE Vital Signs/Narrative: Vital Signs Pulse 12/08/19 07:02 85 Medical Necessity - Tobacco Use Smoking Status: Current every day smoker Tobacco Use: Cigarettes Assessment/Plan All Active Problems (Last Reviewed 10/31/19 @ 15:32 by Aris Nelson MD) Dehydration (Acute) Hypokalemia (Acute) Hypophosphatemia (Acute) Altered mental status (Acute) Acute kidney injury (Acute) DKA (diabetic ketoacidoses) (Acute) 1. DKA/type 1 diabetes/ELIZABETH/hyponatremia/leukocytosis -Anion gap has closed -Transfer to the PCU last night -Kidney function has recovered, will continue with his home insulin medication -Leukocytosis resolved -A1c in November 02.4 2. Alcohol abuse/tobacco abuse -He has a history of alcohol abuse however he states that he has not been drinking -We will hold off of alcohol withdrawal protocol, he does not tolerate Librium very well so we do need to do something we will go with Ativan -Continue with folic acid and thiamine -Continue with nicotine patch, advised cessation 3. HTN/HLD/dilated cardiomyopathy which is alcohol induced -can resume his home medications -Initially his EF was 15% however it has improved with decrease in his alcohol intake -His most recent echocardiogram in 05/21/19 had an EF of 50% with normal diastole 4. Seizure disorder -Currently stable -restart Keppra twice daily, and Lamictal DVT: Lovenox Code Visit Inpatient E&M: 28180 Subs Hosp L2
[2019-12-08 12:06] LABS: Bedside Glucose 328 mg/dL (70-110)
[2019-12-08 14:56] LABS: Bedside Glucose 216 mg/dL (70-110)
[2019-12-08 16:55] LABS: Bedside Glucose 159 mg/dL (70-110)
[2019-12-08] MEDS: Insulin Lispro 100 UNIT/ML INSULN.PEN 10 UNIT SC (17:29)
[2019-12-08] MEDS: MELATONIN 3 MG TABLET 6 MG PO (22:09)
[2019-12-08] MEDS: Atorvastatin Calcium 20 MG Tablet PO (22:10)
[2019-12-08] MEDS: Mirtazapine 30 MG Tablet PO (22:10)
[2019-12-08 22:20] LABS: Bedside Glucose 234 mg/dL (70-110)
[2019-12-09] VITALS (10 sets, daily range): BP systolic 131–147; BP diastolic 70–87; PULSE 75–99; RESP 14–18; TEMP 36.6–36.8; O2SAT 98–100
[2019-12-09] MEDS: oxyCODONE 5 MG Tablet PO ×3 (02:50→15:19)
[2019-12-09 06:36] LABS: Anion Gap 6 (5-15); BUN 7 mg/dL (7-18); BUN/Creat Ratio 11.4 RATIO (10-20); Calcium,Total 8.3 mg/dL (8.5-10.1); Chloride 103 mmol/L (98-107); Creatinine, Serum 0.61 mg/dL (0.70-1.30); EST Glomerular Filtration Rate 152 mL/min (>60); Est Glom Filt Rate - Afr Amer 184 mL/min (>60); Estimated Creatinine Clearance 145.99 ml/min; Glucose 132 mg/dL (74-106); Potassium 2.9 mmol/L (3.5-5.1); Sodium Level 137 mmol/L (136-145)
[2019-12-09] MEDS: Folic Acid 1 MG Tablet PO (07:49)
[2019-12-09] MEDS: Insulin Lispro 100 UNIT/ML INSULN.PEN 10 UNIT SC ×2 (07:50→13:07)
[2019-12-09] MEDS: Insulin Lispro 100 UNIT/ML INSULN.PEN SC (07:50)
[2019-12-09] MEDS: Glucerna Shake 120 ML LIQUID PO ×3 (07:53→16:28)
[2019-12-09 09:01] LABS: Bedside Glucose 212 mg/dL (70-110)
[2019-12-09] MEDS: Carvedilol 3.125 MG TABLET PO (09:48)
[2019-12-09] MEDS: Thiamine Hydrochloride 100 MG Tablet PO (09:48)
[2019-12-09] MEDS: lamoTRIgine 100 MG Tablet PO (09:48)
[2019-12-09] MEDS: levETIRAcetam 750 MG Tablet 1500 MG PO (09:48)
[2019-12-09] MEDS: Enoxaparin 40 MG/0.4 ML Syringe SC (09:51)
[2019-12-09] MEDS: buPROPion (XL) 150 MG TABLET.XL PO (09:59)
--- NOTE | 2019-12-09 11:39 | PCM.DC ---
- Discharge Diagnoses Current Active Problems: Current Active and Chronic Problems (Last Reviewed 10/31/19 @ 15:32 by Aris Nelson MD) Dehydration (Acute) Acute kidney injury (Acute) You will use the following diet at home:: Calorie/Carbohydrate Controlled (specify 1200, 1400, etc) - 1800 Your food should be the consistency of: Regular Discharge Activity: Return to Normal Activity Allergies/Adverse Reactions: Allergies zinc Allergy (Intermediate, Verified 12/07/19 06:01) Hives Medications to take at Discharge levetiracetam 500 mg tablet 1,500 mg PO BID 01/18/18 mirtazapine 15 mg tablet 30 mg PO QHS 01/18/18 Folic Acid 1 tab PO DAILY 30 Days #30 tab 04/16/19 Atorvastatin Calcium 20 mg PO DAILY 04/22/19 Carvedilol 3.125 mg PO BID 05/13/19 Bupropion HCl [Bupropion Xl] 150 mg PO DAILY 09/17/19 Melatonin 6 mg PO QHS 09/17/19 Thiamine HCl [Vitamin B-1] 100 mg PO DAILY 09/17/19 acamprosate 333 mg tablet,delayed release 333 mg PO TID tab 10/31/19 Albuterol Inhaler [Ventolin Hfa] 1 - 2 puff INHALATION Q4H PRN PRN 11/30/19 Oxycodone [Oxyir] 5 mg PO TID PRN 11/30/19 Lamotrigine [Lamictal] 100 mg PO BID 12/07/19 Insulin Glargine,Hum.rec.anlog [Basaglar Kwikpen U-100] 35 unit SC DAILY #0 12/09/19 Insulin Lispro [Insulin Lispro Kwikpen U-100] 10 unit SC TID #0 12/09/19 Potassium Chloride [K-Dur] 20 meq PO BIDCM #60 tab 12/09/19 The following prescriptions were given: Potassium Chloride [K-Dur] 20 meq PO BIDCM #60 tab Transmission Status: Pending to [facility]/pharmacy #[id number] Primary Care Physician: Moni Cintron MD [Primary Care Provider] - Please follow up with your Primary Care Physician in: in 5-7 days Test Results: Test results from this visit will be discussed in further detail at your follow-up appointment, if applicable. Please Follow Up With: Moni Cintron MD Proposed Discharge Date: 12/09/19
--- NOTE | 2019-12-09 11:42 | DS.PCM_ITS ---
Discharge Date and Diagnosis - Problem List Patient Problems: Active and Suspected Problems (Last Reviewed 10/31/19 @ 15:32 by Aris Nelson MD) Dehydration (Acute) Acute kidney injury (Acute) Date of Admission: 12/07/19 Date of Discharge: 12/09/19 - Primary Discharge Diagnosis Active and Suspected Problems (Last Reviewed 10/31/19 @ 15:32 by Aris Nelson MD) Dehydration (Acute) Acute kidney injury (Acute) - Secondary Discharge Diagnosis Chronic Problems (Last Reviewed 10/31/19 @ 15:32 by Aris Nelson MD) Anxiety and depression (Chronic) Tobacco dependence (Chronic) Diabetes type 1, uncontrolled (Chronic) DKA w/ encephalopathy 03/2019 Alcoholic cardiomyopathy (Chronic) Nicotine dependence (Chronic) Hospital Course and Treatment Operations: None Summary of Care Provided: The patient is a 44 year old M history of diabetes mellitus type 1 admitted with diabetic ketoacidosis 1. Diabetic ketoacidosis?managed with IV fluids insulin as well as serial monitoring of electrolyte. Patient DKA did resolve with treatment 2. Hypokalemia corrected per protocol 3. Tobacco dependence counseled on cessation, offered nicotine patch for tobacco cravings 4. Chronic alcohol abuse counseled on cessation 5. Seizure disorder; did continue patient antiseizure medications 6. Essential hypertension did continue patient home meds 7. Dyslipidemia ~patient is on statin therapy, continued at home dose 8. Cardiomyopathy with ejection fraction of 50%. Previously reported as 15% 9. DVT prophylaxis Lovenox Patient Problems: Active and Suspected Problems (Last Reviewed 10/31/19 @ 15:32 by Aris Nelson MD) Dehydration (Acute) Acute kidney injury (Acute) Objective: GENERAL: cooperative HEENT: Atraumatic; EYES; Anicteric, Normal Conjunctiva NECK; supple, normal thyroid, RESPIRATORY: Diminished to auscultation CARDIOVASCULAR: Regular S1 S2, NEURO: Awake; no lateralizing signs. SKIN: No Rash PSYCH; Flat affect - Physical Exam Vitals/I&O's: Vital Signs Temp Pulse Resp BP Pulse Ox 98.1 F 90 18 140/71 H 98 12/09/19 08:00 12/09/19 08:00 12/09/19 08:00 12/09/19 08:00 12/09/19 08:00 Oxygen Delivery Method Room Air Weight: 66.1 kg Body Mass Index (BMI) 19.1 Finger Stick Blood Glucose 175 Intake and Output for Last 24 Hours 12/07/19 12/08/19 12/09/19 23:59 23:59 23:59 Intake Total 4492.24 / 4492.24 2497.50 / 2497.50 Output Total 1400 / 1400 4225 / 4225 600 / 600 Balance 3092.24 / 3092.24 -1727.50 / -1727.50 -600 / -600 Laboratory Results 12/08/19 11:57: POC Glucose 328 H 12/08/19 14:51: POC Glucose 216 H 12/08/19 16:51: POC Glucose 159 H 12/08/19 22:08: POC Glucose 234 H 12/09/19 05:23: Sodium 137, Potassium 2.9 L, Chloride 103, Carbon Dioxide 28.0, Anion Gap 6, BUN 7, Creatinine 0.61 L, Estim Creat Clear Calc 145.99, Est GFR (MDRD) Af Amer 184, Est GFR (MDRD) Non-Af 152, BUN/Creatinine Ratio 11.4, Glucose 132 H, Calcium 8.3 L 12/09/19 07:47: POC Glucose 212 H Current Medications Atorvastatin Calcium (Lipitor) 20 mg PO QHS [facility] Last Admin: 12/08/19 22:10 Dose: 20 mg Documented by: Bupropion HCl (Wellbutrin Xl) 150 mg PO DAILY [facility] Last Admin: 12/09/19 09:59 Dose: 150 mg Documented by: Carvedilol (Coreg) 3.125 mg PO BID [facility] Last Admin: 12/09/19 09:48 Dose: 3.125 mg Documented by: Dextrose (D50w Syringe) 0 gm IV X1 PRN; Protocol PRN Reason: HYPOGLYCEMIA Enoxaparin Sodium (Lovenox) 40 mg SC DAILY [facility] Last Admin: 12/09/19 09:51 Dose: 40 mg Documented by: Folic Acid (Folic Acid) 1 mg PO DAILY@0800 [facility] Last Admin: 12/09/19 07:49 Dose: 1 mg Documented by: Glucagon () 1 mg IM .X1 PRN PRN Reason: Hypoglycemia Sodium Chloride () 250 mls @ 15 mls/hr IV .[id number] PRN PRN Reason: Saline Flush Last Infusion: 12/08/19 00:44 Dose: Infused Documented by: Sodium Chloride () 250 mls @ 15 mls/hr IV .[id number] PRN PRN Reason: Additional IVPB Infusion Potassium Chloride 10 meq/ N/A 100 mls @ 100 mls/hr IV Q1H [facility] Stop: 12/09/19 15:29 Insulin Glargine (Lantus (Bkc)) 35 units SC DAILY [facility] Last Admin: 12/09/19 09:57 Dose: 35 u Documented by: Insulin Human Lispro (Humalog Kwikpen (Bk)) 0 unit SC ACHS [facility]; Protocol Last Admin: 12/09/19 07:50 Dose: 4 u Documented by: Insulin Human Lispro (Humalog Kwikpen (Bk)) 10 unit SC TIDAC [facility] Last Admin: 12/09/19 07:50 Dose: 10 units Documented by: Lamotrigine (Lamictal) 100 mg PO BID [facility] Last Admin: 12/09/19 09:48 Dose: 100 mg Documented by: Levetiracetam (Keppra Tablet) 1,500 mg PO BID [facility] Last Admin: 12/09/19 09:48 Dose: 1,500 mg Documented by: Melatonin (Melatonin) 6 mg PO QHS [facility] Last Admin: 12/08/19 22:09 Dose: 6 mg Documented by: Mirtazapine (Remeron) 30 mg PO QHS [facility] Last Admin: 12/08/19 22:10 Dose: 30 mg Documented by: Nicotine (Nicoderm Cq (kc)) 14 mg TRANSDERM. DAILY [facility] Last Admin: 12/09/19 09:50 Dose: 14 mg Documented by: Nutritional Formula (Lactose Free) (Glucerna Shake) 120 ml PO TIDCM [facility] Last Admin: 12/09/19 07:53 Dose: 120 ml Documented by: Oxycodone HCl (Oxyir) 5 mg PO TID PRN PRN PRN Reason: Pain Score 1-10/10 Last Admin: 12/09/19 10:02 Dose: 5 mg Documented by: [facility] Sodium Chloride () 10 - 40 ml IV UD PRN PRN Reason: SALINE FLUSH Thiamine HCl (Vitamin B1) 100 mg PO DAILY [facility] Last Admin: 12/09/19 09:48 Dose: 100 mg Documented by: Discharge Diet: 1800 Calorie Control Diet Discharge Activity: Return to Normal Activity Home Medications: Medications to take at Discharge levetiracetam 500 mg tablet 1,500 mg PO BID 01/18/18 mirtazapine 15 mg tablet 30 mg PO QHS 01/18/18 Folic Acid 1 tab PO DAILY 30 Days #30 tab 04/16/19 Atorvastatin Calcium 20 mg PO DAILY 04/22/19 Carvedilol 3.125 mg PO BID 05/13/19 Bupropion HCl [Bupropion Xl] 150 mg PO DAILY 09/17/19 Melatonin 6 mg PO QHS 09/17/19 Thiamine HCl [Vitamin B-1] 100 mg PO DAILY 09/17/19 acamprosate 333 mg tablet,delayed release 333 mg PO TID tab 10/31/19 Albuterol Inhaler [Ventolin Hfa] 1 - 2 puff INHALATION Q4H PRN PRN 11/30/19 Oxycodone [Oxyir] 5 mg PO TID PRN 11/30/19 Lamotrigine [Lamictal] 100 mg PO BID 12/07/19 Insulin Glargine,Hum.rec.anlog [Basaglar Kwikpen U-100] 35 unit SUBCUT DAILY #0 12/09/19 Insulin Lispro [Insulin Lispro Kwikpen U-100] 10 unit SUBCUT TID #0 12/09/19 Potassium Chloride [K-Dur] 20 meq PO BIDCM #60 tab 12/09/19 Following Prescrptions Were Given to Patient: Potassium Chloride [K-Dur] 20 meq PO BIDCM #60 tab Transmission Status: Received by [facility]/pharmacy #[id number] Primary Care Physician: Moni Cintron MD [Primary Care Provider] - Please follow up with your Primary Care Physician in: in 5-7 days Please Follow Up With: Moni Cintron MD Disposition: Home Minutes spent on discharge:: 35 Medical Necessity - Tobacco Use Smoking Status: Current every day smoker Tobacco Use: Cigarettes Meaningful Use Info Meaningful Use Diagnoses (Choose all that apply): None applicable Code Visit Inpatient E&M: 11688 Disch Hosp
--- NOTE | 2019-12-09 11:48 | CASEMGMT ---
Social Work SW met with pt in room and introduced self and role of SW. Pt very talkative and somewhat scattered in thought. Pt telling SW of past and information about his friends. Openly talking about alcohol and drug use in past. When SW inquired about current alcohol use pt stopped talking with SW. SW left room and reentered a few minutes later. Pt willing to talk about currently alcohol use. Pt stating that he has been connected with [facility] in the past and has been to an inpt facility previously. Pt also stating he has attended many AA meetings in the past. SW offered to provide information on other programs to assist with alcohol cessation. Pt denied wanting to go back to [facility] and denied any other resources or information. Pt confirmed that he will be going home with his parents upon d/c but is planning on getting a car in December and leaving the area although he does not know where he will go. Pt refusing resources at this time. No further SW needs. YOSELIN Cohn
[2019-12-09 12:00] LABS: Bedside Glucose 149 mg/dL (70-110)
--- NOTE | 2019-12-09 12:54 | PHA.DC.MC ---
Pharmacy Service has performed discharge medication reconciliation and counseling for this patient. 1. POTASSIUM CHLORIDE 20 MEQ PO BIDCM The patient's discharge medication list was reviewed for discrepancies and discrepancies were resolved. Home Medications levetiracetam 500 mg tablet 1,500 mg PO BID 01/18/18 mirtazapine 15 mg tablet 30 mg PO QHS 01/18/18 Folic Acid 1 tab PO DAILY 30 Days #30 tab 04/16/19 Atorvastatin Calcium 20 mg PO DAILY 04/22/19 Carvedilol 3.125 mg PO BID 05/13/19 Bupropion HCl [Bupropion Xl] 150 mg PO DAILY 09/17/19 Melatonin 6 mg PO QHS 09/17/19 Thiamine HCl [Vitamin B-1] 100 mg PO DAILY 09/17/19 acamprosate 333 mg tablet,delayed release 333 mg PO TID tab 10/31/19 Albuterol Inhaler [Ventolin Hfa] 1 - 2 puff INHALATION Q4H PRN PRN 11/30/19 Oxycodone [Oxyir] 5 mg PO TID PRN 11/30/19 Lamotrigine [Lamictal] 100 mg PO BID 12/07/19 Insulin Glargine,Hum.rec.anlog [Basaglar Kwikpen U-100] 35 unit SUBCUT DAILY #0 12/09/19 Insulin Lispro [Insulin Lispro Kwikpen U-100] 10 unit SUBCUT TID #0 12/09/19 Potassium Chloride [K-Dur] 20 meq PO BIDCM #60 tab 12/09/19 The patient was counseled on the following discharge medications and changes in medications for homegoing were reviewed. The Reason for Use, instructions for use, and potential side effects were reviewed for all new medications. The patient's questions regarding all of their medications were answered. The patient was able to verbally demonstrate an understanding of their discharge medications.
[2019-12-09] MEDS: Potassium Chloride IVPB 10 MEQ 100 MEQ IV BOLUS ×4 (12:59→16:34)
[2019-12-09] MEDS: 0.9% Saline Lock 10 ML Syringe IV (13:08)
[2019-12-09 14:39] LABS: Pathologist Review Reviewed
[2019-12-09 16:41] LABS: Bedside Glucose 74 mg/dL (70-110)
[2019-12-09 19:36] LABS: Bedside Glucose 254 mg/dL (70-110)
--- NOTE | 2019-12-10 13:23 | CASEMGMT ---
[facility] DC PHONE CALL DC DATE: 12/09/2019 DC Disposition: Home Diagnosis on Discharge: Dehydration, ELIZABETH LACE/STRATA: 10/03 Attempted call to phone. 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 Gallito DAVISN RN ACM
== END 2019-12-09 19:50 | disposition home or self-care (01) | DRG 637 ==
LOC: ED 07:18 → ICU 13:22 → PCU 12-09 07:26 → ICU 12-09 10:41 → PCU 12-09 10:41
PROVIDERS: Admitting Provider Family Medicine; Emergency Provider Emergency Medicine; Family Provider Internal Medicine; PCP Internal Medicine; Referring Provider Family Medicine; Visit Provider Internal Medicine
DX: E10.10 Type 1 diabetes mellitus with ketoacidosis without coma (principal); E43 Unspecified severe protein-calorie malnutrition; E87.1 Hypo-osmolality and hyponatremia; N17.9 Acute kidney failure, unspecified; I42.6 Alcoholic cardiomyopathy; Z68.1 Body mass index [BMI] 19.9 or less, adult; E78.5 Hyperlipidemia, unspecified; G40.909 Epilepsy, unspecified, not intractable, without status epilepticus; F17.210 Nicotine dependence, cigarettes, uncomplicated; F10.10 Alcohol abuse, uncomplicated; E86.0 Dehydration; F32.9 Major depressive disorder, single episode, unspecified; F41.9 Anxiety disorder, unspecified; E87.6 Hypokalemia; Z79.4 Long term (current) use of insulin; I10 Essential (primary) hypertension
CPT/HCPCS: 36415; 80048; 80320; 82009; 82962; 83735; 85025; 92610; 93005; 97161; 97162; 97166; 97802; 99285; 99406; J7030; J7050; A4216; G0480; J7799

== ENCOUNTER 2019-12-13 14:58 | Inpatient (IN) | payer MEDICARE, MEDICAID, SELFPAY ==
[2019-12-07 08:38] VITALS: BMI 19.1
[2019-12-13] VITALS (16 sets, daily range): BP systolic 83–106; BP diastolic 45–58; PULSE 85–107; RESP 12–25; TEMP 36.6–37.1; O2SAT 98–100; BMI 19.3; BMI 18.3
[2019-12-13 15:15] LABS: Bedside Glucose 415 mg/dL (70-110)
--- NOTE | 2019-12-13 15:27 | EKG12_ITS ---
Test Reason : Blood Pressure : / mmHG Vent. Rate : 096 BPM Atrial Rate : 096 BPM P-R Int : 122 ms QRS Dur : 092 ms QT Int : 372 ms P-R-T Axes : 065 072 068 degrees QTc Int : 469 ms Normal sinus rhythm Normal ECG Confirmed by GOOD GEORGE, RADHA ([id number]), medical editor KRUNAL DOOLEY ([id number]) on 12/17/2019 9:05:56 AM Referred By: Moni Cintron Confirmed By:RADHA FUNK MD
--- NOTE | 2019-12-13 15:30 | RAD_ITS ---
STUDY: X-RAY CHEST REASON FOR EXAM: Male, 44 years old. HYPERGLYCEMIA TECHNIQUE: Single AP portable view of the chest. COMPARISON: 11/30/2019 FINDINGS: The lungs are clear and expanded. There is no demonstrated pleural abnormality. Normal size heart. Normal mediastinum and sherry. Normal visualized pulmonary arteries. Normal visualized aortic arch and descending thoracic aorta. Normal visualized thoracic spine. Normal visualized ribs, clavicles, and shoulders. There is no demonstrated abnormality of the visualized soft tissue structures of the upper abdomen. RAD/Chest 1 View (Portable) IMPRESSION: Normal x-ray examination of the chest. Electronically Signed: Winston Waters MD at 15:58 EST Tel , Service support ,
--- NOTE | 2019-12-13 15:36 | ED.VISSUMM ---
- ER Visit Summary Date of Service: 12/13/19 Chief Complaint: Feels like in DKA History of Present Illness: The patient is a 44 M presenting stating that he feels like he is in DKA. He was admitted to the hospital from December 07- December 09 for DKA. He states he has been unable to keep fluids down today. He has had nausea vomiting. He complains of diffuse abdominal pain. He had one seizure today and one seizure yesterday. He is unsure if he has been able to keep his Keppra down. He denies fever. Denies injury. Denies other complaints. Physical Examination: Vitals are stable. Patient is afebrile. Alert no acute distress. HEENT exam dry mucous membranes Neck is supple. Lungs are clear and equal bilaterally. Heart is regular rate and rhythm. Abdomen is soft nontender nondistended. No guarding or rebound Extremities are unremarkable. Skin is warm and dry. No focal neurologic deficit. Remainder of exam is unremarkable. Emergency Department Course and Treatment: Patient was given IV fluids. EKG is sinus rhythm rate of 96 with no acute ischemic changes. Chest x-ray shows no acute process. CBC shows white count 33.4. Serum ketones large. Chemistries show sodium 132, CO2 14, anion gap 21, glucose 256, BUN 27, creatinine 1.77. Patient was started on insulin drip as well as D5 half-normal saline. Discussed with hospitalist for admission. Disposition: Admission Impression: DKA This note was generated with [employer] dictation software. It may contain incorrect words, spelling, and punctuation that were not noted in review of the chart prior to signing ED Disposition - Plan for ED Patient: Referrals: Moni Cintron MD [Primary Care Provider] -
[2019-12-13] MEDS: 0.9% Normal Saline 1,000 ML 1000 ML IV ×2 (15:53→17:02)
[2019-12-13 16:55] LABS: Absolute Lymphocyte Count 2.36 X10^3/uL (0.83-4.51); Absolute Neutrophil Count 26.6 X10^3/uL (2.0-7.7); Basophil# 0.16 X10^3/uL; Basophil% 0.5 % (0-1); Eosinophil# 0.01 X10^3/uL; Hematocrit 35.8 % (40-54); Hemoglobin 12.2 g/dL (13.0-16.5); Lymphocyte # 2.36 X10^3/ul (4.0); Lymphocyte % 7.3 % (19-41); Mean Corp Hgb Conc 34.1 g/dL (32-36); Mean Corpuscular Hgb 30.6 pg (27.0-32.0); Mean Corpuscular Volume 89.7 fL (80-94); Mean Platelet Vol. 9.2 fl (6.2-12.0); Monocyte# 2.41 X10^3/uL; Monocyte% 7.4 % (0-10); NRBC Flagged by Analyzer 0 % (0-5); Neutrophil # 26.58 X10^3/uL (2.7-7.7); Neutrophil % 82.2 % (47-70); POSITIVE COUNT YES; POSITIVE DIFFERENTIAL YES; Platelet Count 470 K/mm3 (150-450); RBC Distribution Width SD 42.1 fl (35.1-43.9); Red Blood Count 3.99 M/mm3 (4.6-6.2)
[2019-12-13 16:58] LABS: Differential Indicated SCAN CRITERIA MET
[2019-12-13 16:59] LABS: White Blood Count 32.4 K/mm3 (4.4-11.0)
--- NOTE | 2019-12-13 17:03 | ED.RN ---
wbc 32.[address] the lab. dr blackwood aware
[2019-12-13 17:12] LABS: ALB/GLOB Ratio 1.3 RATIO (0.9-2.4); AST(SGOT) 14 U/L (15-37); Alanine Aminotransfer ALT/SGPT 33 U/L (16-61); Albumin, Serum 3.4 g/dL (3.2-5.0); Alkaline Phosphatase 85 U/L (45-117); Anion Gap 21 (5-15); BUN 27 mg/dL (7-18); BUN/Creat Ratio 15.3 RATIO (10-20); Calcium,Total 8.2 mg/dL (8.5-10.1); Chloride 97 mmol/L (98-107); Creatinine, Serum 1.77 mg/dL (0.70-1.30); EST Glomerular Filtration Rate 45 mL/min (>60); Est Glom Filt Rate - Afr Amer 54 mL/min (>60); Estimated Creatinine Clearance 49.17 ml/min; Globulin 2.7 g/dL (2.2-4.2); Glucose 256 mg/dL (74-106); Potassium 4.2 mmol/L (3.5-5.1); Protein, Total 6.1 g/dL (6.4-8.2); Sodium Level 132 mmol/L (136-145)
[2019-12-13 17:13] LABS: Differential Comment SEE COMMENTS; Platelet Estimate SLT INC (ADEQ)
[2019-12-13 17:14] LABS: Anisocytosis RARE; Red Cell Morphology N CHROM NORMAL (NORM C&C); Toxic Granulation 1+
[2019-12-13] MEDS: Dext 5%-0.45% NS 1,000 ML 125 ML IV (17:56)
--- NOTE | 2019-12-13 17:59 | HP.PCM_ITS ---
History of Present Illness Date of Admission: 12/13/19 Chief Complaint: nausea, vomiting The patient is a 44 year old M with an extensive past medical history which includes type 1 diabetes mellitus with recurrent DKA. Patient was admitted through the ED on 12/13/2019 with a complaint of nausea and vomiting was started the day before admission. Patient was just discharged from [facility] on 12/09/2019 after being admitted and managed for dehydration and ELIZABETH. Patient states he went home and started having nausea and vomiting was started 1 day prior to admission. He can see the number of times he vomited. Patient claims he is compliant with his insulin but initially told me that he had been taking sliding scale for his long-term insulin and then stated that he thinks he takes 35 units of Lantus. He could not see whether he has taken it for the past few days. He denied any fever or chills, and admitted to some mild retrosternal chest pain with associated cough which was nonproductive. He denied any shortness of breath, abdominal pain or diarrhea. Review systems otherwise neg ative. In the ED, he was found to have blood sugar of 415 with bicarb of 14 and anion gap of 21. Sodium was 132 and creatinine was 1.77. WBC was 32.4 and hemoglobin was 12.2 with platelets of 470. EKG showed no acute ST changes and chest x-ray showed no acute cardiopulmonary process. He has been admitted to be managed for DKA likely due to noncompliance with his insulin. [] Past Medical History Past Medical History (Chronic Problems): Chronic Problems (Last Reviewed 10/31/19 @ 15:32 by Aris Nelson MD) Anxiety and depression (Chronic) Tobacco dependence (Chronic) Diabetes type 1, uncontrolled (Chronic) DKA w/ encephalopathy 03/2019 Alcoholic cardiomyopathy (Chronic) Nicotine dependence (Chronic) Medical History: Medical History (Last Reviewed 10/31/19 @ 15:32 by Aris Nelson MD) Diabetes type 1, uncontrolled (Chronic) E10.65 DKA w/ encephalopathy 03/2019 Alcoholic cardiomyopathy (Chronic) I42.6 Nicotine dependence (Chronic) F17.200 High cholesterol E78.00 history of vitamin deficiency Acute renal failure N17.9 Alcohol abuse F10.10 Anxiety F41.9 Dental caries K02.9 Depression F32.9 Diabetic ketoacidosis Onset Date: 03/2019 E11.10 Dilated cardiomyopathy I42.0 Elevated liver enzymes R74.8 H/O sepsis Z86.19 Hyponatremia E87.1 Lactic acidosis E87.2 Left atrial enlargement I51.7 Mycoplasma pneumonia J15.7 NSVT (nonsustained ventricular tachycardia) I47.2 Neuropathy G62.9 Prolonged QT interval R94.31 Seizure disorder G40.909 Steatosis of liver K76.0 Thrombocytopenia D69.6 ELIZABETH (acute kidney injury) N17.9 Metabolic encephalopathy Onset Date: 03/2019 G93.41 Diabetes type 1, controlled E10.9 dx : 08/2001 last exacerbation : dka : 05/13 hypoglycemic episode : never er visit : 05/13 Allergies zinc Allergy (Intermediate, Verified 12/13/19 15:00) Hives Home Medications: Ambulatory Orders Medication Instructions Recorded Atorvastatin Calcium 20 mg PO DAILY 04/22/19 Bupropion HCl [Bupropion Xl] 150 mg PO DAILY 09/17/19 Melatonin 6 mg PO QHS 09/17/19 Thiamine HCl [Vitamin B-1] 100 mg PO DAILY 09/17/19 acamprosate 333 mg tablet,delayed 666 mg PO TID tab 10/31/19 release Albuterol Inhaler [Ventolin Hfa] 1 - 2 puff INHALATION Q4H PRN PRN 11/30/19 Oxycodone [Oxyir] 5 mg PO TID PRN 11/30/19 Lamotrigine [Lamictal] 150 mg PO BID 12/07/19 Potassium Chloride [K-Dur] 20 meq PO BIDCM #60 tab 12/09/19 Carvedilol 3.125 mg PO BID 12/13/19 Folic Acid 800 mcg PO DAILY 12/13/19 Guaifenesin [Mucinex] 1,200 mg PO BID 12/13/19 Insulin Glargine,Hum.rec.anlog 20 unit SUBCUT QHS 12/13/19 [Basaglar Kwikpen U-100] Insulin Glargine,Hum.rec.anlog 25 units SQ BREAKFAST 12/13/19 [Lantus] Insulin Lispro [Insulin Lispro See Protocol SUBCUT TID 12/13/19 Kwikpen U-100] Levetiracetam 1,500 mg PO BID 12/13/19 Lisinopril [Zestril] 2.5 mg PO DAILY 12/13/19 Mirtazapine 30 mg PO QHS 12/13/19 Surgical History: Surgical History (Last Reviewed 10/31/19 @ 15:32 by Aris Nelson MD) History of left heart catheterization Onset Date: 04/18/16 Z98.890 Hx of tonsillectomy Z98.890, Z90.89 Surgical History: noncontributory, - - Craniotomy with evacuation of intracranial hemorrhage Psychiatric History: No pertinent psych hx, Anxiety, Depression Lives: Alone Smoking Status: Current every day smoker Alcohol: Heavy - says he hasnt drunk any alcohol since November 27 2019 - *Family History Maternal Family History: Family History (Last Reviewed 10/31/19 @ 15:32 by Aris Nelson MD) Mother Arthritis Thyroid disorder Father Diabetes Grandfather Diabetes Hypertension High cholesterol Grandmother Diabetes High cholesterol Arthritis Review of Systems Constitutional: Reports: Anorexia, Malaise, Weakness, Fatigue. Denies: Chills, Fever Eyes: Denies: Blurred vision HEENT: Denies: Head Aches, Sinus Congestion, Sinus Drainage Cardiovascular: Reports: Chest Pain. Denies: Chest Pressure, Chest Tightness, Edema, Heaviness, Light Headedness, Orthopnea, Palpitations, Paroxysmal Noc. Dyspnea Respiratory: Reports: Cough, Pleuritic Pain. Denies: Shortness of Breath, Shortness of breath at rest, Shortness of breath upon exertion, Sputum production Gastrointestinal: Reports: Nausea, Vomiting. Denies: Abdominal Pain, Diarrhea Genitourinary: Denies: Dysuria Musculoskeletal: Denies: Joint Pain, Joint Tenderness Skin: Denies: Rash, Wounds Neurological: Denies: Numbness, Tingling, Focal weakness Psychiatric: Denies: Anxiety, Depression, Homicidal Ideations, Suicidal Ideations Hematologic/ Lymphatic: Denies: Easy Bruising, Easy Bleeding VTE Information - Inpt Only VTE Present on Admission: No VTE Pharm Prophylaxis ordered?: Yes - Physical Exam Vitals/I&O's: Vital Signs Temp Pulse Resp BP Pulse Ox 98.7 F 92 14 106/58 L 100 12/13/19 15:00 12/13/19 17:01 12/13/19 17:01 12/13/19 17:35 12/13/19 15:00 Oxygen Delivery Method Room Air Weight: 142 lb 6.698 oz Body Mass Index (BMI) 19.3 Finger Stick Blood Glucose 238 Intake and Output for Last 24 Hours 12/11/19 12/12/19 12/13/19 23:59 23:59 23:59 Intake Total 1000 / 1000 Balance 1000 / 1000 General: Alert, Oriented x3, Cooperative, No apparent distress, Lethargic HEENT: Atraumatic, PERRLA, EOMI, Normocephalic Oral: Dry Mucosa Neck: Supple, No JVD, Negative Carotid Bruits Lungs: Clear to auscultation, Normal air movement, No rhonchi, No wheeze, No rales Cardiovascular: Regular rate, Regular Rhythm, Normal S1, Normal S2, No murmurs Abdomen: Bowel Sounds Present, Soft, Non Tender, Non-Distended, No Hepato- splenomegaly Extremities: No clubbing, No cyanosis, No edema, Capillary Refill Less than 3 Seconds Skin: No rashes, No breakdown Musculoskeletal: No Tenderness to Palpation of Joints or Extremities Lymphatic: No Cervical, Supraclavicular, or Inguinal Adenopathy Neurological: Cranial nerves II-XII grossly intact, Neuro grossly intact, Motor Exam 5/5 strength throughout Psych/Mental Status: Normal Affect, Appropriate, Alert and oriented to time, p lace, person, mood and affect Laboratory Results 12/13/19 15:08: POC Glucose 415 H 12/13/19 15:45: WBC Cancelled, Corrected WBC Cancelled, RBC Cancelled, Hgb Cancelled, Hct Cancelled, MCV Cancelled, MCH Cancelled, MCHC Cancelled, RDW Std Deviation Cancelled, RDW Coeff of Omayra Cancelled, Plt Count Cancelled, MPV Cancelled, Immature Gran % (Auto) Cancelled, Neut % (Auto) Cancelled, Lymph % (Auto) Cancelled, Burnet % (Auto) Cancelled, Eos % (Auto) Cancelled, Baso % (Auto) Cancelled, Absolute Neuts (auto) Cancelled, Absolute Lymphs (auto) Cancelled, Total Counted Cancelled, Neutrophils % (Manual) Cancelled, Band Neutrophils % Cancelled, Lymphocytes % (Manual) Cancelled, Monocytes % (Manual) Cancelled, Eosinophils % (Manual) Cancelled, Basophils % (Manual) Cancelled, Metamyelocytes % Cancelled, Myelocytes % Cancelled, Promyelocytes % Cancelled, Blast Cells % Cancelled, Plasma Cell % (Manual) Cancelled, Other Cells % Cancelled, Nucleated RBC % Cancelled, Nucleated RBCs/100 WBC Cancelled, Differential Comment Cancelled, Diff Path Review Cancelled, Hypersegmented Neuts Cancelled, Atypical Lymphocytes Cancelled, Reactive Lymphocytes Cancelled, Smudge Cells Cancelled, Toxic Granulation Cancelled, Toxic Vacuolation Cancelled, Dohle Bodies Cancelled, Lizeth Rods Cancelled, Platelet Estimate Cancelled, Plt Morphology Comment Cancelled, RBC Morphology Cancelled, Polychromasia Cancelled, Hypochromasia Cancelled, Poikilocytosis Cancelled, Basophilic Stippling Cancelled, Anisocytosis Cancelled, Microcytosis Cancelled, Macrocytosis Cancelled, Spherocytes Cancelled, Sickle Cells Cancelled, Target Cells Cancelled, Tear Drop Cells Cancelled, Ovalocytes Cancelled, Stomatocytes Cancelled, Singleton-Letcher Bodies Cancelled, Kristal Cells Cancelled, Bite Cells Cancelled, Crenated Cell Cancelled, Acanthocytes (Spur) Cancelled, Rouleaux Cancelled, Schistocytes Cancelled 12/13/19 15:45: Sodium Cancelled, Potassium Cancelled, Chloride Cancelled, Carbon Dioxide Cancelled, Anion Gap Cancelled, BUN Cancelled, Creatinine Cancelled, Estim Creat Clear Calc Cancelled, Est GFR (MDRD) Af Amer Cancelled, Est GFR (MDRD) Non-Af Cancelled, BUN/Creatinine Ratio Cancelled, Glucose Cancelled, Calcium Cancelled, Total Bilirubin Cancelled, AST Cancelled, ALT Cancelled, Alkaline Phosphatase Cancelled, Total Protein Cancelled, Albumin Cancelled, Globulin Cancelled, Albumin/Globulin Ratio Cancelled 12/13/19 15:45: Acetone Level LARGE H 12/13/19 16:50: WBC 32.4 H*, RBC 3.99 L, Hgb 12.2 L, Hct 35.8 L, MCV 89.7, MCH 30.6, MCHC 34.1, RDW Std Deviation 42.1, RDW Coeff of Omayra 13.0, Plt Count 470 H, MPV 9.2, Immature Gran % (Auto) 2.600 H, Neut % (Auto) 82.2 H, Lymph % (Auto) 7.3 L, Burnet % (Auto) 7.4, Eos % (Auto) 0.0, Baso % (Auto) 0.5, Absolute Neuts ( auto) 26.6 H, Absolute Lymphs (auto) 2.36, Nucleated RBC % 0, Differential Comment SEE COMMENTS, Diff Path Review May foll, Toxic Granulation 1+, Platelet Estimate SLT INC, RBC Morphology N CHROM, Anisocytosis RARE 12/13/19 16:50: Sodium 132 L, Potassium 4.2, Chloride 97 L, Carbon Dioxide 14.0 L, Anion Gap 21 H, BUN 27 H, Creatinine 1.77 H, Estim Creat Clear Calc 49.17, Est GFR (MDRD) Af Amer 54 L, Est GFR (MDRD) Non-Af 45 L, BUN/Creatinine Ratio 15.3, Glucose 256 H, Calcium 8.2 L, Total Bilirubin 0.50, AST 14 L, ALT 33, Alkaline Phosphatase 85, Total Protein 6.1 L, Albumin 3.4, Globulin 2.7, Albumin/Globulin Ratio 1.3 Diagnostic Data Chest X-Ray 12/13/19 15:30 IMPRESSION: Normal x-ray examination of the chest. Electronically Signed: Winston Waters MD at 15:58 EST Tel , Service support , Current Medications Insulin Human Lispro 100 unit/ (Sodium Chloride) 100 mls @ 6.46 mls/hr IV .[id number] [facility]; Protocol Last Admin: 12/13/19 17:55 Dose: 0.1 units/kg/hr, 6.5 mls/hr Documented by: Dextrose/Sodium Chloride () 1,000 mls @ 125 mls/hr IV .Q8H OZZIE Last Admin: 12/13/19 17:56 Dose: 125 mls/hr Documented by: Dextrose (Dextrose 10%-Water) 250 mls @ 999 mls/hr IV .Q16M PRN; Protocol PRN Reason: HYPOGLYCEMIA Assessment/Plan All Active Problems (Last Reviewed 10/31/19 @ 15:32 by Aris Nelson MD) Dehydration (Acute) Hypokalemia (Acute) Hypophosphatemia (Acute) Altered mental status (Acute) Acute kidney injury (Acute) DKA (diabetic ketoacidoses) (Acute) 44-year-old admitted with a complaint of nausea and vomiting and found to be in DKA. 1. DKA and a known type I diabetic likely due to noncompliance * admit to ICU * anion gap is 21, with bicarb of 14, and blood sugar was 415 * patient has been having nausea and vomiting at home, and hasnt been compliant with his meds. * has a history of previous DKA's due to noncompliance * wbc is markedly elevated at 32.4, with no clear focus of infection. differential shows 82.2% neutrophils * urine tox positive for large acetones * hydrate aggressively wiht IVF NS. 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 * 2. Hyponatremia: Sodium is 132. This is likely pseudohyponatremia due to hyperglycemia. Should correct with IV fluid administration and as blood sugar trends down. 3. Leukocytosis: * WBC is 32.4. * This may be reactive from DKA. * No clear source of infection., he has no fever, no tachycardia or tachypnea. * Will check UA and urine culture as well as blood culture. * give one dose of vancomycin and zosyn and monitor. * 4. History of seizure disorder: On Lamictal. Also on Keppra. 5. History of alcohol abuse and alcoholic cardiomyopathy: * Patient admits to alcohol abuse and states he has not drank since November. * Cannot quantify how much he usually drinks as he drinks so much. * Will monitor. * Alcohol withdrawal protocol with Ativan. Monitor CIWA score. * Folic acid, thiamine and Multivite. * On carvedilol for occult cardiomyopathy. * Prophylaxis: Lovenox CODE STATUS: DNR CCA * Patient counseled extensively about different types of CODE STATUS including full code, DNR CCA and DNR CCA. Patient elects to be DNRCCA. Patient was again counseled that considering his young age, DNR CCA entailed not attempting any resuscitation efforts are stopped or he needed intubation. Patient answered in the affirmative and said if his heart stopped, he wanted to as he had had a long miserable life and was tired of depending on his parents. * Total vsqi-ie-cvkh time 18 minutes. Code Visit Inpatient E&M: 11063 Init Hosp L3 Procedures: 23638 Advncd Care Plan 30 Min
[2019-12-13 18:01] LABS: Bedside Glucose 238 mg/dL (70-110)
--- NOTE | 2019-12-13 18:09 | ED.RN ---
CALLED REPORT TO TEODORO FRYE. WILL CALL WHEN ROOM IS READY.
--- NOTE | 2019-12-13 18:11 | NURSING ---
INSULIN VERIFIED WITH TEODORO GEORGES.
[2019-12-13 19:04] LABS: Magnesium 2.5 mg/dL (1.6-2.6); Phosphorus 3.5 mg/dL (2.5-4.9)
[2019-12-13 19:06] LABS: Bedside Glucose 249 mg/dL (70-110)
[2019-12-13] MEDS: LORazepam 1 MG Tablet PO (20:27)
[2019-12-13] MEDS: levETIRAcetam 750 MG Tablet 1500 MG PO (21:06)
[2019-12-13] MEDS: lamoTRIgine 150 MG Tablet PO (21:06)
[2019-12-13] MEDS: Mirtazapine 30 MG Tablet PO (21:06)
[2019-12-13] MEDS: MELATONIN 3 MG TABLET 6 MG PO (21:06)
[2019-12-13] MEDS: guaiFENesin 1,200 MG Tablet 1200 MG PO (21:06)
[2019-12-13] MEDS: Atorvastatin Calcium 20 MG Tablet PO (21:06)
[2019-12-13 21:16] LABS: Bedside Glucose 225 mg/dL (70-110)
[2019-12-13 21:16] LABS: Bedside Glucose 258 mg/dL (70-110)
[2019-12-13 21:23] LABS: Anion Gap 18 (5-15); BUN 25 mg/dL (7-18); BUN/Creat Ratio 15.2 RATIO (10-20); Calcium,Total 8.3 mg/dL (8.5-10.1); Chloride 99 mmol/L (98-107); Creatinine, Serum 1.64 mg/dL (0.70-1.30); EST Glomerular Filtration Rate 49 mL/min (>60); Est Glom Filt Rate - Afr Amer 59 mL/min (>60); Estimated Creatinine Clearance 50.36 ml/min; Glucose 243 mg/dL (74-106); Potassium 4.7 mmol/L (3.5-5.1); Sodium Level 133 mmol/L (136-145)
--- NOTE | 2019-12-13 22:45 | PCM.RX.CS ---
Consult Pharmacy has been consulted to manage selected antiobiotic: Vancomycin Type of Consult: New start Labs: Sodium 133 mmol/L (136-145) L 12/13/19 20:48 Potassium 4.7 mmol/L (3.5-5.1) 12/13/19 20:48 Chloride 99 mmol/L (98-107) 12/13/19 20:48 Carbon Dioxide 16.0 mmol/L (21.0-32.0) L 12/13/19 20:48 Anion Gap 18 (5-15) H 12/13/19 20:48 BUN 25 mg/dL (7-18) H 12/13/19 20:48 Creatinine 1.64 mg/dL (0.70-1.30) H 12/13/19 20:48 Est GFR (MDRD) Af Amer 59 mL/min (>60) L 12/13/19 20:48 Est GFR (MDRD) Non-Af 49 mL/min (>60) L 12/13/19 20:48 BUN/Creatinine Ratio 15.2 RATIO (10-20) 12/13/19 20:48 Glucose 243 mg/dL (74-106) H 12/13/19 20:48 Weight used for dosin.3 kg Estimated Creatinine Clearance: 49 Goal Trough: 15-20 mcg/mL Pharmacy Plan for Drug Dosing: Pharmacy Service will continue to monitor and adjust dosing as required. Medications Vancomycin HCl () 500 mg in 100 mls @ 100 mls/hr IV Q12H OZIZE Discontinued Medications Vancomycin HCl 1,500 mg/ (Sodium Chloride) 530 mls @ 250 mls/hr IV X1 ONE Stop: 12/13/19 21:37 Last Admin: 12/13/19 20:44 Dose: 250 mls/hr Documented by: Follow-Up Labs: Trough Vancomycin Labs to be done on [date and time ordered]: 12/14 @ 7163
[2019-12-13 23:05] LABS: Bedside Glucose 189 mg/dL (70-110)
[2019-12-13 23:05] LABS: Bedside Glucose 200 mg/dL (70-110)
[2019-12-13] MEDS: 0.9% Normal Saline 1,000 ML 999 ML IV (23:25)
[2019-12-14] VITALS (18 sets, daily range): BP systolic 86–125; BP diastolic 49–88; PULSE 81–102; RESP 11–18; TEMP 36.4–36.7; O2SAT 95–100
[2019-12-14 00:51] LABS: Bedside Glucose 156 mg/dL (70-110)
[2019-12-14 00:57] LABS: BUN 23 mg/dL (7-18); BUN/Creat Ratio 16.7 RATIO (10-20); Calcium,Total 7.3 mg/dL (8.5-10.1); Creatinine, Serum 1.38 mg/dL (0.70-1.30); EST Glomerular Filtration Rate 60 mL/min (>60); Est Glom Filt Rate - Afr Amer 72 mL/min (>60); Estimated Creatinine Clearance 59.84 ml/min; Glucose 147 mg/dL (74-106); Sodium Level 138 mmol/L (136-145)
[2019-12-14 00:58] LABS: Anion Gap 8 (5-15); Chloride 107 mmol/L (98-107); Potassium 3.4 mmol/L (3.5-5.1)
[2019-12-14] MEDS: Dextrose 10%-Water 250 ML 999 ML IV (02:45)
[2019-12-14 03:01] LABS: Bedside Glucose 129 mg/dL (70-110)
[2019-12-14 03:01] LABS: Bedside Glucose 75 mg/dL (70-110)
[2019-12-14 03:01] LABS: Bedside Glucose 60 mg/dL (70-110)
[2019-12-14 04:46] LABS: Absolute Lymphocyte Count 3.37 X10^3/uL (0.83-4.51); Absolute Neutrophil Count 8.7 X10^3/uL (2.0-7.7); Basophil# 0.04 X10^3/uL; Basophil% 0.3 % (0-1); Eosinophil# 0.15 X10^3/uL; Eosinophils% 1.1 % (0-5); Hematocrit 28.8 % (40-54); Lymphocyte # 3.37 X10^3/ul (4.0); Lymphocyte % 25.1 % (19-41); Mean Corp Hgb Conc 34.7 g/dL (32-36); Mean Corpuscular Hgb 30.6 pg (27.0-32.0); Mean Corpuscular Volume 88.1 fL (80-94); Mean Platelet Vol. 8.9 fl (6.2-12.0); Monocyte# 1.09 X10^3/uL; Monocyte% 8.1 % (0-10); NRBC Flagged by Analyzer 0 % (0-5); Neutrophil # 8.67 X10^3/uL (2.7-7.7); Neutrophil % 64.8 % (47-70); Platelet Count 363 K/mm3 (150-450); RBC Distribution Width CV 13.1 % (11.6-14.6); RBC Distribution Width SD 41.4 fl (35.1-43.9); Red Blood Count 3.27 M/mm3 (4.6-6.2); White Blood Count 13.4 K/mm3 (4.4-11.0)
[2019-12-14] MEDS: 0.9% Normal Saline 1,000 ML 999 ML IV (04:57)
[2019-12-14 05:03] LABS: Anion Gap 5 (5-15); BUN 18 mg/dL (7-18); BUN/Creat Ratio 14.6 RATIO (10-20); Calcium,Total 7.4 mg/dL (8.5-10.1); Chloride 105 mmol/L (98-107); Creatinine, Serum 1.23 mg/dL (0.70-1.30); EST Glomerular Filtration Rate 68 mL/min (>60); Est Glom Filt Rate - Afr Amer 82 mL/min (>60); Estimated Creatinine Clearance 67.14 ml/min; Glucose 92 mg/dL (74-106); Potassium 3.4 mmol/L (3.5-5.1); Sodium Level 137 mmol/L (136-145)
[2019-12-14 05:06] LABS: Bedside Glucose 102 mg/dL (70-110)
[2019-12-14 05:06] LABS: Bedside Glucose 118 mg/dL (70-110)
[2019-12-14 05:06] LABS: Bedside Glucose 144 mg/dL (70-110)
[2019-12-14 06:11] LABS: Bedside Glucose 135 mg/dL (70-110)
[2019-12-14 07:55] LABS: Bedside Glucose 126 mg/dL (70-110)
[2019-12-14] MEDS: Ondansetron 4 MG/2 ML Vial IV (07:56)
[2019-12-14] MEDS: 0.9% Saline Lock 10 ML Syringe IV (07:56)
[2019-12-14] MEDS: oxyCODONE 5 MG Tablet PO ×2 (07:56→15:12)
[2019-12-14] MEDS: Folic Acid 1 MG Tablet PO (07:59)
[2019-12-14] MEDS: Multivitamins,Therapeutic Tablet 1 TABLET PO (07:59)
[2019-12-14] MEDS: LORazepam 1 MG Tablet PO ×3 (08:50→22:05)
--- NOTE | 2019-12-14 09:24 | CM.UR ---
RN CM Assessment Patient sleeping easily aroused. Introduced role of RN CM to patient.? Patient is alert, oriented and able?to participate in RN CM Assessment. Care providers, pharmacy, and demographics verified. Presentation: Vomiting and seizures feels like in DKA Admit Dx: DKA Re-Admit: Yes Barriers/Issues: Hx of noncompliance and drinking. States hasn't drank since first of year. PCP: Moni Cintron Specialists: Endo- Dr Nelson--States he was seeing her and COMFORT Phillips NP still. States Dr. Nelson told him that he shouldn't see both but choose one or the other. States he is going to stay with [facility]. Also has appt with Francine Oliva NP at [facility] for the seizures. Preferred Pharmacy: [facility] [place] Insurance: [employer] MCR and [employer] Rx Benefit:?Yes LNOK: Parents Eduin and Kalpana Smart LW/HPOA: None, Refused offered information or services on this admission Living Arrangements:? Lives with parents in a SS home, no steps to enter home ADL?s: Independent with ambulation and ADLs. States on days he has seizures he has more difficulty. Transportation: Parents DME: None other than diabetic supplies- [facility], [place] HHC: None. Doesn't know who his PROMISE caser shoe parts is but states that she is arranging for a male ASSISTANT FIELD HOCKEY COACH to visit him 2x per day. States plan is for him to move out in the next couple months. States that he and his parents get along but do have different views, he doesn't want to stay with his parents and they don't want him there either. SNF: None Goal: Home and does not think will have any needs. Denies any issues/concerns/or questions with DC planning at this time. Aware CM remains available for any emerging needs. DC PLAN: Home with follow up with caser shoe [employer]. Lillie Holley RN, CCM.
--- NOTE | 2019-12-14 09:44 | PCM.PN.HOSP ---
Reason for Visit: DKA, hyponatremia Objective: Patient has recurrent admission, on November 30, 2019 and again on December 07 and then yesterday for DKA. Patient also has a history of chronic alcohol use and he states his last drink was on November 30 prior to admission at that time. Patient also has cough which he thinks not severe on complain of chest pain from right to left. Patient has history of smoking since age 15 about a pack per day No fever or chills. No tachypnea. Blood pressure 114/88, it was 88/51. Vitals/I&O's: Vital Signs Temp Pulse Resp BP Pulse Ox 98.1 F 90 11 L 114/88 H 100 12/14/19 08:00 12/14/19 09:00 12/14/19 09:00 12/14/19 09:00 12/14/19 09:00 Oxygen Delivery Method Room Air Weight: 147 lb 0.773 oz Body Mass Index (BMI) 18.3 Finger Stick Blood Glucose 135 Intake and Output for Last 24 Hours 12/12/19 12/13/19 12/14/19 23:59 23:59 23:59 Intake Total 2584.18 / 4057.34 4044.14 / 4044.14 Output Total 0 / 0 Balance 2584.18 / 4057.34 4044.14 / 4044.14 General: Alert, Oriented x3, Cooperative HEENT: Atraumatic, PERRLA, EOMI, Normocephalic Neck: Supple, No JVD, Negative Carotid Bruits Lungs: Clear to auscultation, No rhonchi, No wheeze, No rales, Diminished Cardiovascular: Regular rate, Regular Rhythm, Normal S1, Normal S2, No murmurs Abdomen: Bowel Sounds Present, Soft, Non Tender, Non-Distended Extremities: No edema, Capillary Refill Less than 3 Seconds Skin: No rashes, No breakdown Musculoskeletal: No Tenderness to Palpation of Joints or Extremities Neurological: Cranial nerves II-XII grossly intact, Deep Tendon Reflexes 2+/4 and Symmetrical, Neuro grossly intact, Motor Exam 5/5 strength throughout Psych/Mental Status: Normal Affect, Appropriate Laboratory Results 12/13/19 15:08: POC Glucose 415 H 12/13/19 15:45: WBC Cancelled, Corrected WBC Cancelled, RBC Cancelled, Hgb Cancelled, Hct Cancelled, MCV Cancelled, MCH Cancelled, MCHC Cancelled, RDW Std Deviation Cancelled, RDW Coeff of Omayra Cancelled, Plt Count Cancelled, MPV Cancelled, Immature Gran % (Auto) Cancelled, Neut % (Auto) Cancelled, Lymph % (Auto) Cancelled, Clark % (Auto) Cancelled, Eos % (Auto) Cancelled, Baso % (Auto) Cancelled, Absolute Neuts (auto) Cancelled, Absolute Lymphs (auto) Cancelled, Total Counted Cancelled, Neutrophils % (Manual) Cancelled, Band Neutrophils % Cancelled, Lymphocytes % (Manual) Cancelled, Monocytes % (Manual) Cancelled, Eosinophils % (Manual) Cancelled, Basophils % (Manual) Cancelled, Metamyelocytes % Cancelled, Myelocytes % Cancelled, Promyelocytes % Cancelled, Blast Cells % Cancelled, Plasma Cell % (Manual) Cancelled, Other Cells % Cancelled, Nucleated RBC % Cancelled, Nucleated RBCs/100 WBC Cancelled, Differential Comment Cancelled, Diff Path Review Cancelled, Hypersegmented Neuts Cancelled, Atypical Lymphocytes Cancelled, Reactive Lymphocytes Cancelled, Smudge Cells Cancelled, Toxic Granulation Cancelled, Toxic Vacuolation Cancelled, Dohle Bodies Cancelled, Lizeth Rods Cancelled, Platelet Estimate Cancelled, Plt Morphology Comment Cancelled, RBC Morphology Cancelled, Polychromasia Cancelled, Hypochromasia Cancelled, Poikilocytosis Cancelled, Basophilic Stippling Cancelled, Anisocytosis Cancelled, Microcytosis Cancelled, Macrocytosis Cancelled, Spherocytes Cancelled, Sickle Cells Cancelled, Target Cells Cancelled, Tear Drop Cells Cancelled, Ovalocytes Cancelled, Stomatocytes Cancelled, Singleton-Manteca Bodies Cancelled, Kristal Cells Cancelled, Bite Cells Cancelled, Crenated Cell Cancelled, Acanthocytes (Spur) Cancelled, Rouleaux Cancelled, Schistocytes Cancelled 12/13/19 15:45: Sodium Cancelled, Potassium Cancelled, Chloride Cancelled, Carbon Dioxide Cancelled, Anion Gap Cancelled, BUN Cancelled, Creatinine Cancelled, Estim Creat Clear Calc Cancelled, Est GFR (MDRD) Af Amer Cancelled, Est GFR (MDRD) Non-Af Cancelled, BUN/Creatinine Ratio Cancelled, Glucose Cancelled, Calcium Cancelled, Total Bilirubin Cancelled, AST Cancelled, ALT Cancelled, Alkaline Phosphatase Cancelled, Total Protein Cancelled, Albumin Cancelled, Globulin Cancelled, Albumin/Globulin Ratio Cancelled 12/13/19 15:45: Acetone Level LARGE H 12/13/19 16:50: WBC 32.4 H*, RBC 3.99 L, Hgb 12.2 L, Hct 35.8 L, MCV 89.7, MCH 30.6, MCHC 34.1, RDW Std Deviation 42.1, RDW Coeff of Omayra 13.0, Plt Count 470 H, MPV 9.2, Immature Gran % (Auto) 2.600 H, Neut % (Auto) 82.2 H, Lymph % (Auto) 7.3 L, Clark % (Auto) 7.4, Eos % (Auto) 0.0, Baso % (Auto) 0.5, Absolute Neuts (auto) 26.6 H, Absolute Lymphs (auto) 2.36, Nucleated RBC % 0, Differential Comment SEE COMMENTS, Diff Path Review May foll, Toxic Granulation 1+, Platelet Estimate SLT INC, RBC Morphology N CHROM, Anisocytosis RARE 12/13/19 16:50: Sodium 132 L, Potassium 4.2, Chloride 97 L, Carbon Dioxide 14.0 L, Anion Gap 21 H, BUN 27 H, Creatinine 1.77 H, Estim Creat Clear Calc 49.17, Est GFR (MDRD) Af Amer 54 L, Est GFR (MDRD) Non-Af 45 L, BUN/Creatinine Ratio 15.3, Glucose 256 H, Calcium 8.2 L, Total Bilirubin 0.50, AST 14 L, ALT 33, Alkaline Phosphatase 85, Total Protein 6.1 L, Albumin 3.4, Globulin 2.7, Albumin/Globulin Ratio 1.3 12/13/19 16:50: Troponin I < 0.015 12/13/19 16:52: Phosphorus 3.5, Magnesium 2.5 12/13/19 17:56: POC Glucose 238 H 12/13/19 18:56: POC Glucose 249 H 12/13/19 20:00: POC Glucose 258 H 12/13/19 20:48: Sodium 133 L, Potassium 4.7, Chloride 99, Carbon Dioxide 16.0 L, Anion Gap 18 H, BUN 25 H, Creatinine 1.64 H, Estim Creat Clear Calc 50.36, Est GFR (MDRD) Af Amer 59 L, Est GFR (MDRD) Non-Af 49 L, BUN/Creatinine Ratio 15.2, Glucose 243 H, Calcium 8.3 L 12/13/19 20:48: Troponin I < 0.015 12/13/19 21:05: POC Glucose 225 H 12/13/19 22:02: POC Glucose 200 H 12/13/19 23:00: POC Glucose 189 H 12/13/19 23:58: POC Glucose 156 H 12/14/19 00:23: Sodium 138, Potassium 3.4 L, Chloride 107, Carbon Dioxide 23.0, Anion Gap 8, BUN 23 H, Creatinine 1.38 H, Estim Creat Clear Calc 59.84, Est GFR (MDRD) Af Amer 72, Est GFR (MDRD) Non-Af 60, BUN/Creatinine Ratio 16.7, Glucose 147 H, Calcium 7.3 L 12/14/19 00:23: Troponin I < 0.015 12/14/19 00:53: POC Glucose 129 H 12/14/19 02:10: POC Glucose 75 12/14/19 02:40: POC Glucose 60 L 12/14/19 03:03: POC Glucose 144 H 12/14/19 03:58: POC Glucose 102 12/14/19 04:05: WBC Cancelled, Corrected WBC Cancelled, RBC Cancelled, Hgb Cancelled, Hct Cancelled, MCV Cancelled, MCH Cancelled, MCHC Cancelled, RDW Std Deviation Cancelled, RDW Coeff of Omayra Cancelled, Plt Count Cancelled, MPV Cancelled, Immature Gran % (Auto) Cancelled, Neut % (Auto) Cancelled, Lymph % (Auto) Cancelled, Clark % (Auto) Cancelled, Eos % (Auto) Cancelled, Baso % (Auto) Cancelled, Absolute Neuts (auto) Cancelled, Absolute Lymphs (auto) Cancelled, Total Counted Cancelled, Neutrophils % (Manual) Cancelled, Band Neutrophils % Cancelled, Lymphocytes % (Manual) Cancelled, Monocytes % (Manual) Cancelled, Eosinophils % (Manual) Cancelled, Basophils % (Manual) Cancelled, Metamyelocytes % Cancelled, Myelocytes % Cancelled, Promyelocytes % Cancelled, Blast Cells % Cancelled, Plasma Cell % (Manual) Cancelled, Other Cells % Cancelled, Nucleated RBC % Cancelled, Nucleated RBCs/100 WBC Cancelled, Differential Comment Cancelled, Diff Path Review Cancelled, Hypersegmented Neuts Cancelled, Atypical Lymphocytes Cancelled, Reactive Lymphocytes Cancelled, Smudge Cells Cancelled, Toxic Granulation Cancelled, Toxic Vacuolation Cancelled, Dohle Bodies Cancelled, Lizeth Rods Cancelled, Platelet Estimate Cancelled, Plt Morphology Comment Cancelled, RBC Morphology Cancelled, Polychromasia Cancelled, Hypochromasia Cancelled, Poikilocytosis Cancelled, Basophilic Stippling Cancelled, Anisocytosis Cancelled, Microcytosis Cancelled, Macrocytosis Cancelled, Spherocytes Cancelled, Sickle Cells Cancelled, Target Cells Cancelled, Tear Drop Cells Cancelled, Ovalocytes Cancelled, Stomatocytes Cancelled, Singleton-Manteca Bodies Cancelled, Kristal Cells Cancelled, Bite Cells Cancelled, Crenated Cell Cancelled, Acanthocytes (Spur) Cancelled, Rouleaux Cancelled, Schistocytes Cancelled 12/14/19 04:05: Sodium Cancelled, Potassium Cancelled, Chloride Cancelled, Carbon Dioxide Cancelled, Anion Gap Cancelled, BUN Cancelled, Creatinine Cancelled, Estim Creat Clear Calc Cancelled, Est GFR (MDRD) Af Amer Cancelled, Est GFR (MDRD) Non-Af Cancelled, BUN/Creatinine Ratio Cancelled, Glucose Cancelled, Calcium Cancelled 12/14/19 04:40: WBC 13.4 H, RBC 3.27 L, Hgb 10.0 L, Hct 28.8 L, MCV 88.1, MCH 30.6, MCHC 34.7, RDW Std Deviation 41.4, RDW Coeff of Omayra 13.1, Plt Count 363, MPV 8.9, Immature Gran % (Auto) 0.600, Neut % (Auto) 64.8, Lymph % (Auto) 25.1, Clark % (Auto) 8.1, Eos % (Auto) 1.1, Baso % (Auto) 0.3, Absolute Neuts (auto) 8.7 H, Absolute Lymphs (auto) 3.37, Nucleated RBC % 0 12/14/19 04:40: Sodium 137, Potassium 3.4 L, Chloride 105, Carbon Dioxide 27.0, Anion Gap 5, BUN 18, Creatinine 1.23, Estim Creat Clear Calc 67.14, Est GFR (MDRD) Af Amer 82, Est GFR (MDRD) Non-Af 68, BUN/Creatinine Ratio 14.6, Glucose 92, Calcium 7.4 L 12/14/19 04:59: POC Glucose 118 H 12/14/19 06:03: POC Glucose 135 H 12/14/19 07:52: POC Glucose 126 H Current Medications Albuterol Sulfate (Ventolin Aerosols) 2.5 mg INHALATION Q4H PRN PRN Reason: SOB/WHEEZING Atorvastatin Calcium (Lipitor) 20 mg PO QHS [facility] Last Admin: 12/13/19 21:06 Dose: 20 mg Documented by: Bupropion HCl (Wellbutrin Xl) 150 mg PO DAILY [facility] Carvedilol (Coreg) 3.125 mg PO BID [facility] Last Admin: 12/13/19 21:06 Dose: Not Given Documented by: Dicyclomine HCl (Bentyl) 20 mg PO Q6H PRN PRN PRN Reason: abdominal discomfort Enoxaparin Sodium (Lovenox) 40 mg SC DAILY [facility] Folic Acid (Folic Acid) 1 mg PO DAILY@0800 [facility] Last Admin: 12/14/19 07:59 Dose: 1 mg Documented by: Glucagon () 1 mg IM .X1 PRN PRN Reason: Hypoglycemia Guaifenesin (Mucinex) 1,200 mg PO BID [facility] Last Admin: 12/13/19 21:06 Dose: 1,200 mg Documented by: Hydroxyzine Pamoate (Vistaril Pamoate Capsule) 50 mg PO Q6H PRN PRN PRN Reason: Mild Anxiety (score 1/3) Dextrose (Dextrose 10%-Water) 250 mls @ 999 mls/hr IV .Q16M PRN; Protocol PRN Reason: HYPOGLYCEMIA Last Infusion: 12/14/19 03:01 Dose: Infused Documented by: Vancomycin IV Pharmacy to Dose (1 ea/ Sodium Chloride) 500 mls @ 250 mls/hr IV PRN PRN; Protocol PRN Reason: Rx to Dose Piperacillin Sod/Tazobactam (Sod 3.375 gm/ Sodium Chloride) 50 mls @ 12.5 mls/hr IV Q8 [facility] Last Admin: 12/14/19 05:14 Dose: 12.5 mls/hr Documented by: Sodium Chloride () 250 mls @ 15 mls/hr IV .[id number] PRN PRN Reason: Saline Flush Last Infusion: 12/13/19 23:02 Dose: 0 mls/hr Documented by: Vancomycin HCl () 500 mg in 100 mls @ 100 mls/hr IV Q12H [facility] Insulin Glargine (Lantus ([facility])) 25 units SC BREAKFAST [facility] Last Admin: 12/14/19 05:27 Dose: 25 u Documented by: Insulin Glargine (Lantus ([facility])) 20 units SC QHS [facility] Insulin Human Lispro (Humalog Kwikpen ([facility])) 0 unit SC ACHS [facility]; Protocol Last Admin: 12/14/19 07:53 Dose: Not Given Documented by: Lamotrigine (Lamictal) 150 mg PO BID [facility] Last Admin: 12/13/19 21:06 Dose: 150 mg Documented by: Levetiracetam (Keppra Tablet) 1,500 mg PO BID [facility] Last Admin: 12/13/19 21:06 Dose: 1,500 mg Documented by: Lisinopril (Zestril) 2.5 mg PO DAILY [facility] Lorazepam (Ativan) 1 mg PO Q4H [facility]; Taper Stop: 12/16/19 23:44 Last Admin: 12/14/19 08:50 Dose: 1 mg Documented by: Melatonin (Melatonin) 6 mg PO QHS [facility] Last Admin: 12/13/19 21:06 Dose: 6 mg Documented by: Methocarbamol (Methocarbamol) 750 mg PO Q6H PRN PRN PRN Reason: Muscle Aches Mirtazapine (Remeron) 30 mg PO QHS [facility] Last Admin: 12/13/19 21:06 Dose: 30 mg Documented by: [facility] Admin: 12/14/19 07:59 Dose: 1 tablet Documented by: Nicotine (Nicoderm Cq (Pbkc)) 21 mg TRANSDERM. DAILY [facility] Ondansetron HCl (Zofran) 4 mg IV Q8H PRN PRN PRN Reason: NAUSEA/VOMITING Last Admin: 12/14/19 07:56 Dose: 4 mg Documented by: Oxycodone HCl (Oxyir) 5 mg PO TID PRN PRN Reason: Pain 1-10 or Fever Last Admin: 12/14/19 07:56 Dose: 5 mg Documented by: Potassium Chloride (K-Dur) 40 meq PO BIDCM [facility] Stop: 12/14/19 17:01 Sodium Chloride () 10 - 40 ml IV UD PRN PRN Reason: SALINE FLUSH Last Admin: 12/14/19 07:56 Dose: 10 ml Documented by: Thiamine HCl (Vitamin B1) 100 mg PO DAILY [facility] Vital Signs/Narrative: Vital Signs Temp Pulse Resp BP Pulse Ox 12/14/19 09:00 90 11 L 114/88 H 100 12/14/19 08:00 98.1 F 89 15 106/53 L 99 12/14/19 07:00 92 15 88/55 L 98 12/14/19 06:51 94 12/14/19 06:00 92 15 108/63 100 Medical Necessity - Tobacco Use Smoking Status: Current every day smoker Tobacco Use: Cigarettes, Cigars, Pipe Assessment/Plan All Active Problems (Last Reviewed 10/31/19 @ 15:32 by Aris Nelson MD) Dehydration (Acute) Hypokalemia (Acute) Hypophosphatemia (Acute) Altered mental status (Acute) Acute kidney injury (Acute) DKA (diabetic ketoacidoses) (Acute) 44-year-old gentleman with history of type 1 diabetes, recurrent DKA with recurrent admissions, traumatic SDH resulting into craniectomy, withdrawal seizures or postcraniotomy seizures and for DKA, hyponatremia and leukocytosis. 1. DKA with high anion gap metabolic acidosis: Patient is being admitted in ICU. Patient was on on DKA protocol with IV fluid and insulin drip which is subsequently changed to subcu Lantus and lispro insulin after 2 anion gap are closed. Mild hypokalemia, potassium being replaced. 2. Acute kidney injury secondary dehydration from DKA: ELIZABETH resolved. Last creatinine 1.23. 3. Leukocytosis most probably secondary to DKA: Patient was admitted with 32,000 WBC count and it improved to 13.4 thousand. Patient does not give history of focal symptoms and signs of infection including URI, lower respiratory infection, or UTI or rash. Antibiotic vancomycin and Zosyn is discontinued. UA is negative for infection, WBC 0-5, LE 25. Follow blood cultures 4 . Alcohol withdrawal/postcraniotomy seizures: On Keppra 1500 mg twice daily. On folic acid and thiamine. 5. Alcohol dependence and tolerance/binge drinking with alcoholic cardiomyopathy: patient had echo in April 2019. It is reported as Normal LV size. The estimated ejection fraction is 50 %. Borderline global hypokinesis of left ventricle. Left ventricular systolic function is lower limits of normal. The global longitudinal strain = -12.8% (abnormal). Compared to prior study, there is no significant change. Continue atorvastatin and carvedilol. 5. Other comorbidities include anxiety and depression: Patient is on bupropion, mirtazapine: Home medications reconciliation done. DVT prophylaxis, moderate risk in view of multiple comorbidities: Lovenox 40 mg subcu daily. Discontinue if platelet count drops less than 50,000 or hemoglobin less than 8 g% patient had occult gastric blood positive during previous admission on November Total time of the visit including total time spent in counseling or coordination of care, (more than 50% of the total time, spent in obtaining medical information from nurses and other ancillary care providers), review of labs and imaging is 40 minutes Code Visit Inpatient E&M: [id number] [place] [id number]
[2019-12-14] MEDS: guaiFENesin 1,200 MG Tablet 1200 MG PO ×2 (09:56→22:06)
[2019-12-14] MEDS: levETIRAcetam 750 MG Tablet 1500 MG PO ×2 (09:56→22:05)
[2019-12-14] MEDS: buPROPion (XL) 150 MG TABLET.XL PO (09:56)
[2019-12-14] MEDS: Carvedilol 3.125 MG TABLET PO ×2 (09:56→22:06)
[2019-12-14] MEDS: lamoTRIgine 150 MG Tablet PO ×2 (09:56→22:07)
[2019-12-14] MEDS: Thiamine Hydrochloride 100 MG Tablet PO (09:56)
[2019-12-14] MEDS: Enoxaparin 40 MG/0.4 ML Syringe SC (09:57)
[2019-12-14] MEDS: Lisinopril 2.5 MG Tablet PO (11:04)
[2019-12-14] MEDS: Pantoprazole Sodium 40 MG Tablet PO (11:04)
[2019-12-14] MEDS: Insulin Lispro 100 UNIT/ML INSULN.PEN SC ×3 (11:32→22:05)
[2019-12-14 11:35] LABS: Bedside Glucose 203 mg/dL (70-110)
--- NOTE | 2019-12-14 14:31 | NURSING ---
pt asking for oxycodone for c/o chest pain and then c/o Castell[place] and jaw pain. Pt is aware that there is no order for this but offered tylenol.
--- NOTE | 2019-12-14 14:41 | EKG12_ITS ---
Test Reason : CP Blood Pressure : / mmHG Vent. Rate : 091 BPM Atrial Rate : 091 BPM P-R Int : 128 ms QRS Dur : 088 ms QT Int : 372 ms P-R-T Axes : 133 051 093 degrees QTc Int : 457 ms Unusual P axis, possible ectopic atrial rhythm Lateral infarct , age undetermined ,canot be excluded Abnormal ECG Confirmed by JAIDEN GEORGE, SRAVAN ([id number]), desk editor KRUNAL DOOLEY ([id number]) on 12/18/2019 10:25:16 AM Referred By: Moni Cintron Confirmed By:SRAVAN HWANG MD
--- NOTE | 2019-12-14 14:49 | NURSING ---
C/o chest pain states for 2 weeks now. This nurse informed Dr. Geiger of this and 12 lead EKG and Troponin ordered.
[2019-12-14 17:20] LABS: Bedside Glucose 305 mg/dL (70-110)
[2019-12-14 19:38] LABS: Bacteria 0 SEEN /hpf (None Seen); Mucous, Urine 0 SEEN /hpf (<or=2+); Red Blood Cells-Urine 0 SEEN /hpf (0-5); White Blood Cells 0 SEEN /hpf (0-5)
[2019-12-14 19:45] LABS: Color, Urine Yellow (Yellow); Glucose, Dipstick 1000 mg/dl (Normal); Ketone-Dipstick 5 mg/dl (Negative); Leukocyte Esterase-Dipstick Negative /ul (Negative); Nitrite-Dipstick Negative (Negative); Occult Blood-Urine Negative /ul (Negative); Protein-Dipstick Negative (Negative); Urine Bilirubin Dipstick Negative (Negative); Urine Clarity Clear (Clear); Urine Urobilinogen Normal (Normal); Urine pH 6.5 (5.0 - 8.0)
[2019-12-14 20:09] LABS: Squamous Epithelial Cells - UA 0-5 SEEN /hpf (0-5)
[2019-12-14] MEDS: Mirtazapine 30 MG Tablet PO (22:05)
[2019-12-14] MEDS: MELATONIN 3 MG TABLET 6 MG PO (22:06)
[2019-12-14] MEDS: Atorvastatin Calcium 20 MG Tablet PO (22:06)
[2019-12-14 22:45] LABS: Bedside Glucose 374 mg/dL (70-110)
[2019-12-15 03:46] VITALS: BP 126/78; PULSE 79; RESP 14; TEMP 36.4; O2SAT 99
[2019-12-15] MEDS: LORazepam 1 MG Tablet PO ×2 (03:49→10:13)
[2019-12-15] MEDS: oxyCODONE 5 MG Tablet PO ×2 (03:57→12:59)
[2019-12-15 06:55] LABS: Bedside Glucose 100 mg/dL (70-110)
[2019-12-15 08:44] LABS: Absolute Lymphocyte Count 2.53 X10^3/uL (0.83-4.51); Basophil# 0.03 X10^3/uL; Basophil% 0.5 % (0-1); Eosinophil# 0.12 X10^3/uL; Eosinophils% 1.9 % (0-5); Hematocrit 34.1 % (40-54); Hemoglobin 11.5 g/dL (13.0-16.5); Lymphocyte # 2.53 X10^3/ul (4.0); Lymphocyte % 39.9 % (19-41); Mean Corp Hgb Conc 33.7 g/dL (32-36); Mean Corpuscular Hgb 29.9 pg (27.0-32.0); Mean Corpuscular Volume 88.8 fL (80-94); Mean Platelet Vol. 9.2 fl (6.2-12.0); Monocyte# 0.65 X10^3/uL; Monocyte% 10.3 % (0-10); NRBC Flagged by Analyzer 0 % (0-5); Neutrophil # 2.99 X10^3/uL (2.7-7.7); Neutrophil % 47.1 % (47-70); Platelet Count 373 K/mm3 (150-450); RBC Distribution Width CV 13.2 % (11.6-14.6); RBC Distribution Width SD 42.3 fl (35.1-43.9); Red Blood Count 3.84 M/mm3 (4.6-6.2); White Blood Count 6.3 K/mm3 (4.4-11.0)
[2019-12-15] MEDS: Folic Acid 1 MG Tablet PO (08:49)
[2019-12-15] MEDS: Multivitamins,Therapeutic Tablet 1 TABLET PO (08:49)
[2019-12-15 09:17] LABS: Anion Gap 4 (5-15); BUN 6 mg/dL (7-18); Calcium,Total 8.9 mg/dL (8.5-10.1); Chloride 105 mmol/L (98-107); Creatinine, Serum 0.86 mg/dL (0.70-1.30); EST Glomerular Filtration Rate 102 mL/min (>60); Est Glom Filt Rate - Afr Amer 124 mL/min (>60); Estimated Creatinine Clearance 104.49 ml/min; Glucose 83 mg/dL (74-106); Potassium 3.5 mmol/L (3.5-5.1); Sodium Level 139 mmol/L (136-145)
--- NOTE | 2019-12-15 09:25 | DCINST_ITS ---
You will use the following diet at home:: Calorie/Carbohydrate Controlled (specify 1200, 1400, etc) - carb controlled Discharge Activity: May Not Drive - chronic alcoholism Weight Bearing Status: Weight bearing as tolerated Call your doctor if you observe: Fever of 101 or Higher, Coldness, Increased Pain, Numbness or Tingling, Change in Color, Inability to urinate, Inability to have a bowel movement, Using more than one pad per hour, Dizziness, Fainting spells, Swelling in the ankles, Chest pain, Prolonged hiccoughing, Increased palpitations (irregular heartbeat), Calf discomfort, Uncontrolled pain Allergies/Adverse Reactions: Allergies zinc Allergy (Intermediate, Verified 12/13/19 15:00) Hives Medications to take at Discharge Atorvastatin Calcium 20 mg PO DAILY 04/22/19 Bupropion HCl [Bupropion Xl] 150 mg PO DAILY 09/17/19 Melatonin 6 mg PO QHS 09/17/19 Thiamine HCl [Vitamin B-1] 100 mg PO DAILY 09/17/19 acamprosate 333 mg tablet,delayed release 666 mg PO TID tab 10/31/19 Albuterol Inhaler [Ventolin Hfa] 1 - 2 puff INHALATION Q4H PRN PRN 11/30/19 Oxycodone [Oxyir] 5 mg PO TID PRN 11/30/19 Lamotrigine [Lamictal] 150 mg PO BID 12/07/19 Potassium Chloride [K-Dur] 20 meq PO BIDCM #60 tab 12/09/19 Carvedilol 3.125 mg PO BID 12/13/19 Folic Acid 800 mcg PO DAILY 12/13/19 Guaifenesin [Mucinex] 1,200 mg PO BID 12/13/19 Insulin Glargine,Hum.rec.anlog [Basaglar Kwikpen U-100] 20 unit SUBCUT QHS 12/13/19 Insulin Lispro [Insulin Lispro Kwikpen U-100] See Protocol SUBCUT TID 12/13/19 Levetiracetam 1,500 mg PO BID 12/13/19 Lisinopril [Zestril] 2.5 mg PO DAILY 12/13/19 Mirtazapine 30 mg PO QHS 12/13/19 Insulin Glargine,Hum.rec.anlog [Lantus] 30 units SQ BREAKFAST #0 12/15/19 Primary Care Physician: Moni Cintron MD [Primary Care Provider] - Please follow up with your Primary Care Physician in: in 1 week Test Results: Test results from this visit will be discussed in further detail at your follow- up appointment, if applicable. Please Follow Up With: Aris Nelson MD When: in 2 week Please Follow Up With: Yaneth Estrella DO When: in 2-3 weeks with chornic alcoholism
[2019-12-15 09:27] VITALS: BP 137/80; PULSE 85; RESP 20; TEMP 36.6; O2SAT 100
--- NOTE | 2019-12-15 09:30 | DS.PCM_ITS ---
Discharge Date and Diagnosis Date of Admission: 12/13/19 Date of Discharge: 12/15/19 - Secondary Discharge Diagnosis Chronic Problems (Last Reviewed 10/31/19 @ 15:32 by Aris Nelson MD) Anxiety and depression (Chronic) Tobacco dependence (Chronic) Diabetes type 1, uncontrolled (Chronic) DKA w/ encephalopathy 03/2019 Alcoholic cardiomyopathy (Chronic) Nicotine dependence (Chronic) Hospital Course and Treatment Operations: None Summary of Care Provided: The patient is a 44-year-old gentleman with history of type 1 diabetes, recurrent DKA with recurrent admissions, traumatic SDH resulting into craniectomy, withdrawal seizures or postcraniotomy seizures and for DKA, hyponatremia and leukocytosis. 1. DKA with high anion gap metabolic acidosis: Patient is being admitted in ICU. Patient was on on DKA protocol with IV fluid and insulin drip which is subsequently changed to subcu Lantus and lispro insulin after 2 anion gap are closed. Mild hypokalemia, potassium being replaced. 12/15: K3.5. Potassium being replaced. Patient is on oral potassium supplement. Patient has enough insulin supply both Lantus and short-acting insulin. Morning dose of Lantus insulin increased to 30 units daily. Patient is on Humalog high sliding scale. Advised to follow-up with Dr. Nelson. 2. Acute kidney injury secondary dehydration from DKA: ELIZABETH resolved. Last creatinine 1.23. 3. Leukocytosis most probably secondary to DKA: Patient was admitted with 32,000 WBC count and it improved to 13.4 thousand. Patient does not give history of focal symptoms and signs of infection including URI, lower respiratory infection, or UTI or rash. Antibiotic vancomycin and Zosyn is discontinued. UA is negative for infection, WBC 0-5, LE 25. Blood cultures negative for about 2 days.Leukocytosis resolved. 4 . Alcohol withdrawal/postcraniotomy seizures: On Keppra 1500 mg twice daily. On folic acid and thiamine. 5. Alcohol dependence and tolerance/binge drinking with alcoholic cardiomyopathy: patient had echo in April 2019. It is reported as Normal LV size. The estimated ejection fraction is 50 %. Borderline global hypokinesis of left ventricle. Left ventricular systolic function is lower limits of normal. The global longitudinal strain = -12.8% (abnormal). Compared to prior study, there is no significant change. Continue atorvastatin and carvedilol. 5. Other comorbidities include anxiety and depression: Patient is on bupropion, mirtazapine: Home medications reconciliation done. DVT prophylaxis, moderate risk in view of multiple comorbidities: Lovenox 40 mg subcu daily. H&H 11.5/34.1. Discharge medication reconciliation done. Discharge follow-up instructions completed. Discharge process discussed with the patient and all questions were answered to patient's satisfaction. Total time spent, exact 35 minutes on discharge meds reconciliation, examination, coordination of care with nurses and ancillary staff, review of imaging and blood test and discussion with the patient on follow-up instructions - Physical Exam Vitals/I&O's: Vital Signs Temp Pulse Resp BP Pulse Ox 97.6 F L 79 14 126/78 H 99 12/15/19 03:46 12/15/19 03:46 12/15/19 03:46 12/15/19 03:46 12/15/19 03:46 Oxygen Delivery Method Room Air Weight: 147 lb 0.773 oz Body Mass Index (BMI) 18.3 Finger Stick Blood Glucose 135 Intake and Output for Last 24 Hours 12/13/19 12/14/19 12/15/19 23:59 23:59 23:59 Intake Total 2584.18 / 4057.34 4964.14 / 4964.14 Output Total 1100 / 1100 1525 / 1525 Balance 2584.18 / 4057.34 3864.14 / 3864.14 -1525 / -1525 General: Alert, Oriented x3, Cooperative HEENT: Atraumatic, PERRLA, EOMI, Normocephalic Neck: Supple, No JVD, Negative Carotid Bruits Lungs: Clear to auscultation, Normal air movement, No rhonchi, No wheeze, No rales Cardiovascular: Regular rate, Regular Rhythm, Normal S1, Normal S2, No murmurs Abdomen: Bowel Sounds Present, Soft, Non Tender, Non-Distended Extremities: No edema, Capillary Refill Less than 3 Seconds Skin: No rashes, No breakdown Musculoskeletal: No Tenderness to Palpation of Joints or Extremities Neurological: Cranial nerves II-XII grossly intact, Neuro grossly intact, - - Patient does not have alcohol withdrawal symptoms including nausea, vomiting, abdominal pain, sweating. No hallucinations. No seizure activity. Psych/Mental Status: Normal Affect, Appropriate Laboratory Results 12/14/19 11:29: POC Glucose 203 H 12/14/19 14:56: Troponin I < 0.015 12/14/19 16:35: POC Glucose 305 H 12/14/19 17:20: Troponin I < 0.015 12/14/19 19:25: Urine Color Yellow, Urine Clarity Clear, Urine pH 6.5, Ur Specific [place] 1.010, Urine Protein Negative, Urine Glucose (UA) 1000 H, Urine Ketones 5 H, Urine Occult Blood Negative, Urine Nitrite Negative, Urine Bilirubin Negative, Urine Urobilinogen Normal, Ur Leukocyte Esterase Negative, Urine RBC 0 SEEN, Urine WBC 0 SEEN, Ur Squamous Epith Cells 0-5 SEEN, Urine Bacteria 0 SEEN, Urine Mucus 0 SEEN 12/14/19 22:03: POC Glucose 374 H 12/15/19 06:35: POC Glucose 100 12/15/19 08:28: WBC 6.3, RBC 3.84 L, Hgb 11.5 L, Hct 34.1 L, MCV 88.8, MCH 29.9, MCHC 33.7, RDW Std Deviation 42.3, RDW Coeff of Omayra 13.2, Plt Count 373, MPV 9.2, Immature Gran % (Auto) 0.300, Neut % (Auto) 47.1, Lymph % (Auto) 39.9, [place] % (Auto) 10.3 H, Eos % (Auto) 1.9, Baso % (Auto) 0.5, Absolute Neuts (auto) 3.0, Absolute Lymphs (auto) 2.53, Nucleated RBC % 0 12/15/19 08:28: Sodium 139, Potassium 3.5, Chloride 105, Carbon Dioxide 30.0, Anion Gap 4 L, BUN 6 L, Creatinine 0.86, Estim Creat Clear Calc 104.49, Est GFR (MDRD) Af Amer 124, Est GFR (MDRD) Non-Af 102, BUN/Creatinine Ratio 7.0 L, Glucose 83, Calcium 8.9 Current Medications Albuterol Sulfate (Ventolin Aerosols) 2.5 mg INHALATION Q4H PRN PRN Reason: SOB/WHEEZING Atorvastatin Calcium (Lipitor) 20 mg PO QHS REPLACED BY [facility] Last Admin: 12/14/19 22:06 Dose: 20 mg Documented by: Bupropion HCl (Wellbutrin Xl) 150 mg PO DAILY REPLACED BY [facility] Last Admin: 12/14/19 09:56 Dose: 150 mg Documented by: Carvedilol (Coreg) 3.125 mg PO BID REPLACED BY [facility] Last Admin: 12/14/19 22:06 Dose: 3.125 mg Documented by: Enoxaparin Sodium (Lovenox) 40 mg SC DAILY REPLACED BY [facility] Folic Acid (Folic Acid) 1 mg PO DAILY@0800 REPLACED BY [facility] Last Admin: 12/15/19 08:49 Dose: 1 mg Documented by: Glucagon () 1 mg IM .X1 PRN PRN Reason: Hypoglycemia Guaifenesin (Mucinex) 1,200 mg PO BID REPLACED BY [facility] Last Admin: 12/14/19 22:06 Dose: 1,200 mg Documented by: Hydroxyzine Pamoate (Vistaril Pamoate Capsule) 50 mg PO Q6H PRN PRN PRN Reason: Mild Anxiety (score 1/3) Dextrose (Dextrose 10%-Water) 250 mls @ 999 mls/hr IV .Q16M PRN; Protocol PRN Reason: HYPOGLYCEMIA Last Infusion: 12/14/19 03:01 Dose: Infused Documented by: Sodium Chloride () 250 mls @ 15 mls/hr IV .[id number] PRN PRN Reason: Saline Flush Last Infusion: 12/14/19 18:52 Dose: Infused Documented by: Insulin Glargine (Lantus (Bkc)) 25 units SC BREAKFAST REPLACED BY [facility] Last Admin: 12/15/19 08:58 Dose: 25 u Documented by: Insulin Glargine (Lantus (Bkc)) 20 units SC QHS REPLACED BY [facility] Last Admin: 12/14/19 22:04 Dose: 20 u Documented by: Insulin Human Lispro (Humalog Kwikpen (Bkc)) 0 unit SC ACHS REPLACED BY [facility]; Protocol Last Admin: 12/15/19 06:36 Dose: Not Given Documented by: Lamotrigine (Lamictal) 150 mg PO BID REPLACED BY [facility] Last Admin: 12/14/19 22:07 Dose: 150 mg Documented by: Levetiracetam (Keppra Tablet) 1,500 mg PO BID REPLACED BY [facility] Last Admin: 12/14/19 22:05 Dose: 1,500 mg Documented by: Lisinopril (Zestril) 2.5 mg PO DAILY REPLACED BY [facility] Last Admin: 12/14/19 11:04 Dose: 2.5 mg Documented by: Lorazepam (Ativan) 1 mg PO Q6H REPLACED BY [facility]; Taper Stop: 12/16/19 23:44 Last Admin: 12/15/19 03:49 Dose: 1 mg Documented by: Melatonin (Melatonin) 6 mg PO QHS REPLACED BY [facility] Last Admin: 12/14/19 22:06 Dose: 6 mg Documented by: Methocarbamol (Methocarbamol) 750 mg PO Q6H PRN PRN PRN Reason: Muscle Aches Mirtazapine (Remeron) 30 mg PO QHS REPLACED BY [facility] Last Admin: 12/14/19 22:05 Dose: 30 mg Documented by: [facility]amin) [facility] Last Admin: 12/15/19 08:49 Dose: 1 tablet Documented by: Nicotine (Nicoderm Cq (kc)) 21 mg TRANSDERM. DAILY REPLACED BY [facility] Last Admin: 12/14/19 09:54 Dose: 21 mg Documented by: Ondansetron HCl (Zofran) 4 mg IV Q8H PRN PRN PRN Reason: NAUSEA/VOMITING Last Admin: 12/14/19 07:56 Dose: 4 mg Documented by: Oxycodone HCl (Oxyir) 5 mg PO TID PRN PRN Reason: Pain 1-10 or Fever Last Admin: 12/15/19 03:57 Dose: 5 mg Documented by: Pantoprazole Sodium (Protonix) 40 mg PO DAILY REPLACED BY [facility] Last Admin: 12/14/19 11:04 Dose: 40 mg Documented by: Potassium Chloride (K-Dur) 40 meq PO X1 ONE Stop: 12/15/19 09:29 Sodium Chloride () 10 - 40 ml IV UD PRN PRN Reason: SALINE FLUSH Last Admin: 12/14/19 07:56 Dose: 10 ml Documented by: Thiamine HCl (Vitamin B1) 100 mg PO DAILY REPLACED BY [facility] Last Admin: 12/14/19 09:56 Dose: 100 mg Documented by: Discharge Activity: May Not Drive - chronic alcoholism Weight Bearing Status: Weight bearing as tolerated Call your doctor if you observe: Fever of 101 or Higher, Coldness, Increased Pain, Numbness or Tingling, Change in Color, Inability to urinate, Inability to have a bowel movement, Using more than one pad per hour, Dizziness, Fainting spells, Swelling in the ankles, Chest pain, Prolonged hiccoughing, Increased palpitations (irregular heartbeat), Calf discomfort, Uncontrolled pain Home Medications: Medications to take at Discharge Atorvastatin Calcium 20 mg PO DAILY 04/22/19 Bupropion HCl [Bupropion Xl] 150 mg PO DAILY 09/17/19 Melatonin 6 mg PO QHS 09/17/19 Thiamine HCl [Vitamin B-1] 100 mg PO DAILY 09/17/19 acamprosate 333 mg tablet,delayed release 666 mg PO TID tab 10/31/19 Albuterol Inhaler [Ventolin Hfa] 1 - 2 puff INHALATION Q4H PRN PRN 11/30/19 Oxycodone [Oxyir] 5 mg PO TID PRN 11/30/19 Lamotrigine [Lamictal] 150 mg PO BID 12/07/19 Potassium Chloride [K-Dur] 20 meq PO BIDCM #60 tab 12/09/19 Carvedilol 3.125 mg PO BID 12/13/19 Folic Acid 800 mcg PO DAILY 12/13/19 Guaifenesin [Mucinex] 1,200 mg PO BID 12/13/19 Insulin Glargine,Hum.rec.anlog [Basaglar Kwikpen U-100] 20 unit SUBCUT QHS 12/13/19 Insulin Lispro [Insulin Lispro Kwikpen U-100] See Protocol SUBCUT TID 12/13/19 Levetiracetam 1,500 mg PO BID 12/13/19 Lisinopril [Zestril] 2.5 mg PO DAILY 12/13/19 Mirtazapine 30 mg PO QHS 12/13/19 Insulin Glargine,Hum.rec.anlog [Lantus] 30 units SQ BREAKFAST #0 12/15/19 Primary Care Physician: Moni Cintron MD [Primary Care Provider] - Please follow up with your Primary Care Physician in: in 1 week Please Follow Up With: Aris Nelson MD When: in 2 week Please Follow Up With: Yaneth Estrella DO When: in 2-3 weeks with chornic alcoholism Medical Necessity - Tobacco Use Smoking Status: Current every day smoker Tobacco Use: Cigarettes, Cigars, Pipe Meaningful Use Info Meaningful Use Diagnoses (Choose all that apply): None applicable Code Visit Inpatient E&M: 69094 [facility]
[2019-12-15 10:00] VITALS: BP 136/7; BP 136/77; PULSE 82; RESP 20; TEMP 36.6; O2SAT 100
[2019-12-15 10:21] VITALS: PULSE 82
[2019-12-15] MEDS: Enoxaparin 40 MG/0.4 ML Syringe SC (10:30)
[2019-12-15] MEDS: levETIRAcetam 750 MG Tablet 1500 MG PO (10:30)
[2019-12-15] MEDS: Carvedilol 3.125 MG TABLET PO (10:30)
[2019-12-15] MEDS: lamoTRIgine 150 MG Tablet PO (10:30)
[2019-12-15] MEDS: Pantoprazole Sodium 40 MG Tablet PO (10:31)
[2019-12-15] MEDS: Lisinopril 2.5 MG Tablet PO (10:31)
[2019-12-15] MEDS: buPROPion (XL) 150 MG TABLET.XL PO (10:31)
[2019-12-15] MEDS: Thiamine Hydrochloride 100 MG Tablet PO (10:31)
[2019-12-15] MEDS: guaiFENesin 1,200 MG Tablet 1200 MG PO (10:31)
--- NOTE | 2019-12-16 13:53 | CASEMGMT ---
[facility] CM Discharge Follow-up Phone Call: GENE: Alanna Strata: 4 Call Date: 12/16/2019 Discharge Date: 12/15/2019 Time of Call: 1350 Duration: 0 Admitting Diagnosis: DKA Discharge follow-up call attempted to pt. Identifying voicemail message received and message left requesting a return call. Idania Yi RN
[2019-12-16 13:57] LABS: Pathologist Review Reviewed
== END 2019-12-15 13:05 | disposition home or self-care (01) | DRG 638 ==
LOC: ED 17:37 → ICU 18:00 → MS3 12-14 12:19
PROVIDERS: Admitting Provider Student in an Organized Health Care Education/Training Program; Emergency Provider Emergency Medicine; PCP Internal Medicine; Referring Provider Internal Medicine; Visit Provider Internal Medicine
DX: E10.10 Type 1 diabetes mellitus with ketoacidosis without coma (principal); I42.6 Alcoholic cardiomyopathy; N17.9 Acute kidney failure, unspecified; E87.1 Hypo-osmolality and hyponatremia; F32.9 Major depressive disorder, single episode, unspecified; F41.9 Anxiety disorder, unspecified; F17.210 Nicotine dependence, cigarettes, uncomplicated; Z91.14 Patient's other noncompliance with medication regimen; E78.00 Pure hypercholesterolemia, unspecified; E10.40 Type 1 diabetes mellitus with diabetic neuropathy, unspecified; E87.6 Hypokalemia; G40.909 Epilepsy, unspecified, not intractable, without status epilepticus; D72.829 Elevated white blood cell count, unspecified
CPT/HCPCS: 36415; 71045; 80048; 80053; 81001; 82009; 82962; 83735; 84100; 84484; 85025; 87040; 93005; 94762; 97802; 99285; 99406; J7030; J7040; J7050; A4216; J2405; J7799

== ENCOUNTER 2019-12-18 06:26 | Emergency (ER) | payer MEDICARE, MEDICAID, SELFPAY ==
[2019-12-13 18:59] VITALS: BMI 18.3
[2019-12-18 06:27] VITALS: BP 127/84; PULSE 88; RESP 16; TEMP 36.7; O2SAT 100
--- NOTE | 2019-12-18 06:43 | EKG12_ITS ---
Test Reason : SEIZURE Blood Pressure : / mmHG Vent. Rate : 081 BPM Atrial Rate : 081 BPM P-R Int : 134 ms QRS Dur : 094 ms QT Int : 382 ms P-R-T Axes : 052 016 040 degrees QTc Int : 443 ms Normal sinus rhythm Possible Left atrial enlargement Borderline ECG Confirmed by SHANTA GEORGE, PAULO ([id number]), clinical editor KRUNAL DOOLEY ([id number]) on 12/20/2019 2:29:36 PM Referred By: DORITA Confirmed By:NALLELY WOMACK MD
--- NOTE | 2019-12-18 06:44 | RAD_ITS ---
STUDY: X-RAY CHEST REASON FOR EXAM: Male, 44 years old. SEIZURE - RECENT ONSET TECHNIQUE: Single AP portable view of the chest. COMPARISON: 12/13/2019 FINDINGS: The lungs are clear and expanded. There is no demonstrated pleural abnormality. Normal size heart. Normal mediastinum and sherry. Normal visualized pulmonary arteries. Normal visualized aortic arch and descending thoracic aorta. Normal visualized thoracic spine. Normal visualized ribs, clavicles, and shoulders. There is no demonstrated abnormality of the visualized soft tissue structures of the upper abdomen. RAD/Chest 1 View (Portable) IMPRESSION: Normal x-ray examination of the chest. Electronically Signed: Michael Metcalf DO at 7:45 EST Tel , Service support ,
--- NOTE | 2019-12-18 06:44 | CT_ITS ---
STUDY: CT BRAIN WITHOUT CONTRAST REASON FOR EXAM: Male, 44 years old. SEIZURE TODAY, HX OF [place], HTN, NEURO SURGERY RADIATION DOSAGE (If Supplied By Facility): CTDIvol = ( 44.99 ) mGy, DLP = ( 812.98 ) mGycm TECHNIQUE: Transaxial CT imaging of the brain was performed without administration of intravenous contrast material. Individualized dose optimization techniques were used for this CT. COMPARISON: 10/18/2019 FINDINGS: Normal soft tissue structures. Stable right craniotomy with chronic right subdural collection. There is mild cerebral atrophy with widening of the extra-axial spaces and ventricular dilatation. There are areas of decreased attenuation within the white matter tracts of the supratentorial brain, consistent with microvascular disease changes. Normal basal ganglia and thalami. Normal brainstem. Normal cerebellum. There is no intracranial hemorrhage. There are no findings of an acute ischemic infarction. Normal visualized paranasal sinuses. CT/Brain/Head without Contrast IMPRESSION: No acute intracranial pathology. No significant change from September. Stable right craniotomy with subjacent small right subdural collection Electronically Signed: Michael Metcalf DO at 8:19 EST Tel , Service support ,
[2019-12-18 07:09] LABS: Absolute Lymphocyte Count 1.84 X10^3/uL (0.83-4.51); Absolute Neutrophil Count 5.8 X10^3/uL (2.0-7.7); Basophil# 0.04 X10^3/uL; Basophil% 0.5 % (0-1); Eosinophil# 0.14 X10^3/uL; Eosinophils% 1.6 % (0-5); Hematocrit 37.6 % (40-54); Hemoglobin 12.8 g/dL (13.0-16.5); Lymphocyte # 1.84 X10^3/ul (4.0); Mean Corpuscular Hgb 30.3 pg (27.0-32.0); Mean Corpuscular Volume 88.9 fL (80-94); Mean Platelet Vol. 9.2 fl (6.2-12.0); Monocyte# 0.87 X10^3/uL; Monocyte% 9.9 % (0-10); NRBC Flagged by Analyzer 0 % (0-5); Neutrophil # 5.84 X10^3/uL (2.7-7.7); Neutrophil % 66.5 % (47-70); Platelet Count 390 K/mm3 (150-450); RBC Distribution Width CV 13.4 % (11.6-14.6); RBC Distribution Width SD 41.3 fl (35.1-43.9); Red Blood Count 4.23 M/mm3 (4.6-6.2); White Blood Count 8.8 K/mm3 (4.4-11.0)
--- NOTE | 2019-12-18 07:12 | ED.DCSUM_ITS ---
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 Patient was brought in with bystander saw the patient in a ditch seizing. Patient states he has seizures regularly. His last seizure was last night. Patient is on 2 antiepileptics, lamotrigine and Keppra. He states he is been compliant with his medications. Patient currently denies any complaints. He does not remember the episode of seizing. Is not clear how long it lasted. Patient did not urinate on himself and did not bite his tongue. Per EMS patient's blood sugar was 500. Patient was discharged from our facility 3 days ago after admission for DKA. Patient is living with his family members but states he has been managing his own medications. Past Medical History - Allergies and Home Meds Allergies/Adverse Reactions: Allergies zinc Allergy (Intermediate, Verified 12/13/19 15:00) [facility] Primary Care Physician: Moni Cintron MD [Primary Care Provider] - Past Medical History: - - Brain injury, alcohol dependency, DM 1, DKA Surgical History: noncontributory, - - Craniotomy with evacuation of intracranial hemorrhage Lives: With Family Smoking Status: Current every day smoker - Family History Maternal Family History: Family History (Last Reviewed 10/31/19 @ 15:32 by Aris Nelson MD) Mother Arthritis Thyroid disorder Father Diabetes Grandfather Diabetes Hypertension High cholesterol Grandmother Diabetes High cholesterol Arthritis Family History: Reports: No pertinent history Paternal Family History: Family History (Last Reviewed 10/31/19 @ 15:32 by Aris Nelson MD) Mother Arthritis Thyroid disorder Father Diabetes Grandfather Diabetes Hypertension High cholesterol Grandmother Diabetes High cholesterol Arthritis Family History: Reports: No pertinent history Review of Systems General: Denies: Chills, Fever, Sweats Eyes: Denies: Visual changes - bilaterally, Diplopia ENT: Denies: Rhinorrhea, Sore throat Cardiovascular: Denies: Chest pain, Palpitations Respiratory: Denies: Dyspnea, Cough, Dyspnea on exertion Gastrointestinal: Denies: Abdominal pain, Nausea, Vomiting, Diarrhea, Melena, Hematochezia Genitourinary: Denies: Dysuria, Hematuria, Frequency Musculoskeletal: Denies: Back pain, Extremity Pain Skin: Denies: Rash, Wounds Neurological: Reports: - - Seizure activity. Denies: Headache, Weakness, Numbness Physical Exam Vital Signs/Narrative: Vital Signs Temp Pulse Resp BP Pulse Ox 12/18/19 06:27 98.0 F 88 16 127/84 H 100 Inital Vital Signs reviewed: Yes General: Well nourished, Well developed, No Acute Distress Head: Normocephalic, Atraumatic Eyes: Perrl, EOMI, - - No nystagmus ENT: Moist mucous membranes, No rhinorrhea, TM's clear, - - No hemotympanum, no septal hematoma Neck: Supple, Nontender, - - No Meningeal signs Cardiovascular: Regular rate, Regular rhythm, No murmurs Respiratory: No distress, CTA bilaterally, Chest nontender Abdomen: Soft, Nontender, Nondistended, Normal bowel sounds Back: Nontender, Normal Inspection Extremities: Nontender, No edema Skin: Normal color, No rash Neurological: Alert, Oriented x3, Cranial nerves II-XII grossly intact, Normal Strength, Normal Sensation, - - Patient is slightly slow to answer questions but does respond appropriately and with clear speech Psychological: Normal affect, Normal Mood Diagnostic/Tx/Re-eval Chest X-Ray - ED: 1 View, Read by ED Physician, Read by Radiologist, No Acute Disease Clinical Impression(s) from Imaging Studies Brain CT 12/18/19 06:44 IMPRESSION: No acute intracranial pathology. No significant change from September. Stable right craniotomy with subjacent small right subdural collection Electronically Signed: Michael Metcalf DO at 8:19 EST Tel , Service support , Chest X-Ray 12/18/19 06:44 IMPRESSION: Normal x-ray examination of the chest. Electronically Signed: Michael Metcalf DO at 7:45 EST Tel , Service support , Laboratory Data 12/18/19 12/18/19 12/18/19 06:58 06:58 06:58 WBC 8.8 RBC 4.23 L Hgb 12.8 L Hct 37.6 L MCV 88.9 MCH 30.3 MCHC 34.0 RDW Std Deviation 41.3 RDW Coeff of Omayra 13.4 Plt Count 390 MPV 9.2 Immature Gran % (Auto) 0.500 Neut % (Auto) 66.5 Lymph % (Auto) 21.0 [place] % (Auto) 9.9 Eos % (Auto) 1.6 Baso % (Auto) 0.5 Absolute Neuts (auto) 5.8 Absolute Lymphs (auto) 1.84 Nucleated RBC % 0 Sodium 131 L Potassium 4.2 Chloride 98 Carbon Dioxide 24.0 Anion Gap 9 BUN 13 Creatinine 0.84 Estim Creat Clear Calc 107.30 Est GFR (MDRD) Af Amer 128 Est GFR (MDRD) Non-Af 105 BUN/Creatinine Ratio 15.5 Glucose 435 H Calcium 8.6 Troponin I < 0.015 Urine Color Urine Clarity Urine pH Ur Specific [place] Urine Protein Urine Glucose (UA) Urine Ketones Urine Occult Blood Urine Nitrite Urine Bilirubin Urine Urobilinogen Ur Leukocyte Esterase Urine RBC Urine WBC Ur Squamous Epith Cells Urine Bacteria Urine Mucus Acetone Level SMALL H POC Glucose 12/18/19 12/18/19 12/18/19 07:16 08:00 08:44 WBC RBC Hgb Hct MCV MCH MCHC RDW Std Deviation RDW Coeff of Omayra Plt Count MPV Immature Gran % (Auto) Neut % (Auto) Lymph % (Auto) [place] % (Auto) Eos % (Auto) Baso % (Auto) Absolute Neuts (auto) Absolute Lymphs (auto) Nucleated RBC % Sodium Potassium Chloride Carbon Dioxide Anion Gap BUN Creatinine Estim Creat Clear Calc Est GFR (MDRD) Af Amer Est GFR (MDRD) Non-Af BUN/Creatinine Ratio Glucose Calcium Troponin I Urine Color Yellow Urine Clarity Sl. Cloudy Urine pH 6.0 Ur Specific [place] 1.015 Urine Protein Negative Urine Glucose (UA) 1000 H Urine Ketones 50 H Urine Occult Blood Negative Urine Nitrite Negative Urine Bilirubin Negative Urine Urobilinogen Normal Ur Leukocyte Esterase Negative Urine RBC 0 SEEN Urine WBC 0 SEEN Ur Squamous Epith Cells 0-5 SEEN Urine Bacteria 0 SEEN Urine Mucus 0 SEEN Acetone Level POC Glucose 451 H* 374 H - Rhythm Strip Rhythm Strip: Sinus Rhythm Rate: 81 Ectopy: None - EKG Initial EKG Interpretation: Sinus Rhythm, - - Normal sinus rhythm at a rate of [address] segments Normal axis - Medical Decision Making Patient is evaluated after he was found having a seizure at a ditch by a bystander. Patient is at his neurologic baseline however slightly slow to respond. Is possible he is postictal. He does not have any tongue laceration or evidence of urinary incontinence. Patient states he has frequent seizures since his subdural hematoma. Patient follows with Dr. Oliva up at [facility]. Patient was incidentally also found to be hyperglycemic by EMS. Patient does have small acetone in his blood and has an elevated glucose. However his anion gap is normal. Patient is likely hyperglycemic and mildly dehydrated however he is not in DKA at this point. CT of the brain is repeated which does not show any acute intracranial hemorrhage or other acute process. Likely this was just a breakthrough seizure.While he did have a seizure I do not think he is in alcohol withdrawal. He states he has not had a drink since the New Year's. His vital signs are not consistent with delirium tremens and he is not tremulous. Patient states he is been compliant with his medications. Patient will be given 2 L of IV fluids for hydration and then recheck of his glucose. He will be then treated with sliding scale insulin accordingly. Patient is agreeable this plan. He has an appointment to see his PCP tomorrow and his neurosurgeon 2 days from now. Patient has normal vital signs the emergency room. ED Disposition - Plan for ED Patient: Disposition: Home or Assisted Living Diagnosis: Breakthrough seizure, Hyperglycemia due to type 1 diabetes mellitus Instructions: SEIZURE, Recurrent [Adult], ED Diabetic Hyperglycemia Referrals: Moni Cintron MD [Primary Care Provider] -
[2019-12-18] MEDS: 0.9% Normal Saline 1,000 ML 999 ML IV ×2 (07:18→08:40)
[2019-12-18 07:26] LABS: Bedside Glucose 451 mg/dL (70-110)
[2019-12-18 07:27] LABS: Anion Gap 9 (5-15); BUN 13 mg/dL (7-18); BUN/Creat Ratio 15.5 RATIO (10-20); Calcium,Total 8.6 mg/dL (8.5-10.1); Chloride 98 mmol/L (98-107); Creatinine, Serum 0.84 mg/dL (0.70-1.30); EST Glomerular Filtration Rate 105 mL/min (>60); Est Glom Filt Rate - Afr Amer 128 mL/min (>60); Glucose 435 mg/dL (74-106); Potassium 4.2 mmol/L (3.5-5.1); Sodium Level 131 mmol/L (136-145)
[2019-12-18 08:04] LABS: Bacteria 0 SEEN /hpf (None Seen); Mucous, Urine 0 SEEN /hpf (<or=2+); Red Blood Cells-Urine 0 SEEN /hpf (0-5); White Blood Cells 0 SEEN /hpf (0-5)
[2019-12-18 08:05] VITALS: BP 108/69; PULSE 85; RESP 14; O2SAT 96
[2019-12-18 08:16] LABS: Color, Urine Yellow (Yellow); Glucose, Dipstick 1000 mg/dl (Normal); Ketone-Dipstick 50 mg/dl (Negative); Leukocyte Esterase-Dipstick Negative /ul (Negative); Nitrite-Dipstick Negative (Negative); Occult Blood-Urine Negative /ul (Negative); Protein-Dipstick Negative (Negative); Specific Gravity, Urine 1.015 (1.002-1.030); Urine Bilirubin Dipstick Negative (Negative); Urine Clarity Sl. Cloudy (Clear); Urine Urobilinogen Normal (Normal)
[2019-12-18 08:39] LABS: Squamous Epithelial Cells - UA 0-5 SEEN /hpf (0-5)
[2019-12-18 08:51] LABS: Bedside Glucose 374 mg/dL (70-110)
[2019-12-18 10:06] LABS: Bedside Glucose 388 mg/dL (70-110)
[2019-12-18 10:39] VITALS: BP 100/58; PULSE 90; RESP 17
[2019-12-18] MEDS: Insulin Lispro 100 UNIT/ML INSULN.PEN 8 UNIT SC (10:43)
[2019-12-18 11:56] LABS: Bedside Glucose 332 mg/dL (70-110)
[2019-12-18 12:15] VITALS: BP 103/65; PULSE 87; RESP 14
--- NOTE | 2019-12-18 12:18 | ED.RN ---
PT'S MOTHER CALLED PER HIS REQUEST TO ASK FOR RIDE. SHE REPORTED THAT SHE WOULD SEND SOMEONE
== END 2019-12-18 12:19 | disposition home or self-care (01) ==
PROVIDERS: Emergency Provider Emergency Medicine; PCP Internal Medicine
DX: R56.1 Post traumatic seizures (principal); E10.65 Type 1 diabetes mellitus with hyperglycemia; I10 Essential (primary) hypertension; I25.2 Old myocardial infarction; F17.200 Nicotine dependence, unspecified, uncomplicated; Z82.49 Family history of ischemic heart disease and other diseases of the circulatory system; Z87.820 Personal history of traumatic brain injury; Z91.14 Patient's other noncompliance with medication regimen
CPT/HCPCS: 70450; 71045; 80048; 81001; 82009; 82962; 84484; 85025; 93005; 96360; 96361; 99285; J7030; A4216

== ENCOUNTER 2019-12-24 13:40 | Inpatient (IN) | payer MEDICARE, MEDICAID, SELFPAY ==
[2019-12-24] VITALS (13 sets, daily range): BP systolic 94–120; BP diastolic 53–71; PULSE 84–933; RESP 11–18; TEMP 36.6; O2SAT 97–100; BMI 20.3; BMI 20.2
--- NOTE | 2019-12-24 13:59 | ED.DCSUM_ITS ---
- ER Visit Summary Date of Service: 12/24/19 Chief Complaint: Blood sugar with nausea and vomiting. I think I may be in DKA again. History of Present Illness: The patient is a 44 M female insulin-dependent diabetes with multiple episodes of prior DKA. Also history of prior NC and seizure disorder. Patient states blood sugars been elevated today but I asked that he knows of it being was only 190. States he started having nausea and vomiting. No diarrhea. No fever. No abdominal pain. No other complaints. Physical Examination: Middle-aged male no acute distress vital signs are stable and afebrile. Blood pressure 105/59. Pulse ox 9% on room air no signs hypoxia. He does not look septic or toxic. H EENT exam unremarkable. Moist with membranes. Neck nontender no lymphadenopathy. Lungs clear to auscultation bilaterally. Heart regular rhythm no murmur rate about 115. Chest wall nontender. Abdomen soft nontender. Normal bowel sounds no peritoneal signs. No signs of obstruction. No hernias or masses. Patient is moving all 4 extremities. Neurovascular intact. Calves are nontender without edema or cords. Neurologically is awake and alert with no focal motor deficits. Test Results: CBC shows a white count of 10. Hemoglobin 14. No bands. Chemistries sodium 126. CO2 of 20. Gap of 16. BUN of 17 creatinine 1.64 glucose only 135 however he did give himself insulin prior to coming the emergency department. Serum ketones were moderate. Labs are consistent with DKA spite of his blood sugar only being 135. Emergency Department Course and Treatment: Patient treated with IV fluids. IV Zofran. Screening labs obtained. Treatment Plan: Patient will be given a second liter normal saline. Started on insulin drip. Given IV dextrose. I spoke to the hospitalist. And he wants him admitted to the ICU. Disposition: Discharge Impression: Acute nausea and vomiting Acute DKA History of insulin-dependent diabetes This note was generated with [employer] dictation software. It may contain incorrect words, spelling, and punctuation that were not noted in review of the chart prior to signing ED Disposition - Plan for ED Patient: Referrals: Moni Cintron MD [Primary Care Provider] -
[2019-12-24] MEDS: 0.9% Normal Saline 1,000 ML 1000 ML IV (14:16)
[2019-12-24] MEDS: Ondansetron 4 MG/2 ML Vial IV (14:19)
[2019-12-24 14:32] LABS: Absolute Lymphocyte Count 2.59 X10^3/uL (0.83-4.51); Absolute Neutrophil Count 7.2 X10^3/uL (2.0-7.7); Basophil# 0.03 X10^3/uL; Basophil% 0.3 % (0-1); Eosinophil# 0.01 X10^3/uL; Eosinophils% 0.1 % (0-5); Hemoglobin 14.6 g/dL (13.0-16.5); Lymphocyte # 2.59 X10^3/ul (4.0); Lymphocyte % 23.9 % (19-41); Mean Corp Hgb Conc 34.8 g/dL (32-36); Mean Corpuscular Hgb 30.1 pg (27.0-32.0); Mean Corpuscular Volume 86.6 fL (80-94); Mean Platelet Vol. 9.1 fl (6.2-12.0); Monocyte% 9.2 % (0-10); NRBC Flagged by Analyzer 0 % (0-5); Neutrophil # 7.16 X10^3/uL (2.7-7.7); Neutrophil % 66.2 % (47-70); Platelet Count 399 K/mm3 (150-450); RBC Distribution Width CV 14.5 % (11.6-14.6); Red Blood Count 4.85 M/mm3 (4.6-6.2); White Blood Count 10.8 K/mm3 (4.4-11.0)
[2019-12-24 14:45] LABS: Anion Gap 16 (5-15); BUN 17 mg/dL (7-18); BUN/Creat Ratio 10.4 RATIO (10-20); Calcium,Total 9.1 mg/dL (8.5-10.1); Chloride 90 mmol/L (98-107); Creatinine, Serum 1.64 mg/dL (0.70-1.30); EST Glomerular Filtration Rate 49 mL/min (>60); Est Glom Filt Rate - Afr Amer 59 mL/min (>60); Estimated Creatinine Clearance 55.89 ml/min; Glucose 135 mg/dL (74-106); Potassium 3.4 mmol/L (3.5-5.1); Sodium Level 126 mmol/L (136-145)
--- NOTE | 2019-12-24 15:56 | PCM.HP.STD ---
Problem List (1) Dehydration Status: Acute (2) Hypokalemia Status: Acute (3) Hypophosphatemia Status: Acute (4) Altered mental status Status: Acute Qualifiers: Altered mental status type: unspecified Qualified Code(s): R41.82 - Altered mental status, unspecified (5) Acute kidney injury Status: Acute (6) Anxiety and depression Status: Chronic (7) Tobacco dependence Status: Chronic (8) DKA (diabetic ketoacidoses) Status: Acute Qualifiers: Diabetes mellitus type: type 1 Diabetes mellitus complication detail: without coma Qualified Code(s): E10.10 - Type 1 diabetes mellitus with ketoacidosis without coma (9) Diabetes type 1, uncontrolled Status: Chronic Comment: DKA w/ encephalopathy 03/2019 (10) Alcoholic cardiomyopathy Status: Chronic (11) Nicotine dependence Status: Chronic History of Present Illness Date of Admission: 12/24/19 Chief Complaint: DKA, vomiting for about 2 days The patient is a 44 year old M history of type 1 diabetes mellitus and DKA with recurrent admission, last discharged on 12/15/2019 for DKA came to ER with nausea, vomiting, loss of appetite for 2 days. Patient is very dehydrated. He also complained of sore throat and nasal congestion but denies any fever. His temperature was checked by his mother and states it was normal. He had ED visit on December 18, 2018 for seizure and was sent home after treatment for hyperglycemia, glucose 435. In ED, vitals were heart rate 117/min, blood pressure 105/59, respiratory 18, pulse ox 100% room air. Labs in ER is consistent with DKA, anion gap 16, bicarb 20, moderate acetone, sodium 126 and potassium 3.4 although glucose is slightly elevated 135. BUN/creatinine 17/1.64. Patient had 1 L of normal saline bolus in ED and is started on insulin drip. Past Medical History Past Medical History (Chronic Problems): Chronic Problems (Last Reviewed 10/31/19 @ 15:32 by Aris Nelson MD) Anxiety and depression (Chronic) Tobacco dependence (Chronic) Diabetes type 1, uncontrolled (Chronic) DKA w/ encephalopathy 03/2019 Alcoholic cardiomyopathy (Chronic) Nicotine dependence (Chronic) Medical History: Medical History (Last Reviewed 10/31/19 @ 15:32 by Aris Nelson MD) Diabetes type 1, uncontrolled (Chronic) E10.65 DKA w/ encephalopathy 03/2019 Alcoholic cardiomyopathy (Chronic) I42.6 Nicotine dependence (Chronic) F17.200 High cholesterol E78.00 history of vitamin deficiency Acute renal failure N17.9 Alcohol abuse F10.10 Anxiety F41.9 Dental caries K02.9 Depression F32.9 Diabetic ketoacidosis Onset Date: 03/2019 E11.10 Dilated cardiomyopathy I42.0 Elevated liver enzymes R74.8 H/O sepsis Z86.19 Hyponatremia E87.1 Lactic acidosis E87.2 Left atrial enlargement I51.7 Mycoplasma pneumonia J15.7 NSVT (nonsustained ventricular tachycardia) I47.2 Neuropathy G62.9 Prolonged QT interval R94.31 Seizure disorder G40.909 Steatosis of liver K76.0 Thrombocytopenia D69.6 ELIZABETH (acute kidney injury) N17.9 Metabolic encephalopathy Onset Date: 03/2019 G93.41 Diabetes type 1, controlled E10.9 dx : 08/2001 last exacerbation : dka : 05/13 hypoglycemic episode : never er visit : 05/13 Allergies zinc Allergy (Intermediate, Verified 12/24/19 13:44) Hives Home Medications: Ambulatory Orders Medication Instructions Recorded Atorvastatin Calcium 20 mg PO DAILY 04/22/19 Bupropion HCl [Bupropion Xl] 150 mg PO DAILY 09/17/19 Melatonin 6 mg PO QHS 09/17/19 Thiamine HCl [Vitamin B-1] 100 mg PO DAILY 09/17/19 acamprosate 333 mg tablet,delayed 666 mg PO TID tab 10/31/19 release Albuterol Inhaler [Ventolin Hfa] 1 - 2 puff INHALATION Q4H PRN PRN 11/30/19 Oxycodone [Oxyir] 5 mg PO TID PRN 11/30/19 Lamotrigine [Lamictal] 200 mg PO BID 12/07/19 Potassium Chloride [K-Dur] 20 meq PO BIDCM #60 tab 12/09/19 Carvedilol 3.125 mg PO BID 12/13/19 Folic Acid 800 mcg PO DAILY 12/13/19 Guaifenesin [Mucinex] 1,200 mg PO BID 12/13/19 Insulin Glargine,Hum.rec.anlog 20 unit SUBCUT QHS 12/13/19 [Radha Bauman U-100] Insulin Lispro [Insulin Lispro See Protocol SUBCUT TID 12/13/19 Kikipen U-100] Levetiracetam 1,500 mg PO BID 12/13/19 Lisinopril [Zestril] 2.5 mg PO DAILY 12/13/19 Mirtazapine 30 mg PO QHS 12/13/19 Insulin Glargine,Hum.rec.anlog 30 units SQ BREAKFAST #0 12/15/19 [Lantus] Surgical History: Surgical History (Last Reviewed 10/31/19 @ 15:32 by Aris Nelson MD) History of left heart catheterization Onset Date: 04/18/16 Z98.890 Hx of tonsillectomy Z98.890, Z90.89 Surgical History: noncontributory, - - Craniotomy with evacuation of intracranial hemorrhage Psychiatric History: No pertinent psych hx, Anxiety, Depression Smoking Status: Current every day smoker - *Family History Maternal Family History: Family History (Last Reviewed 10/31/19 @ 15:32 by Aris Nelson MD) Mother Arthritis Thyroid disorder Father Diabetes Grandfather Diabetes Hypertension High cholesterol Grandmother Diabetes High cholesterol Arthritis History Items: No pertinent history Paternal Family History: Family History (Last Reviewed 10/31/19 @ 15:32 by Aris Nelson MD) Mother Arthritis Thyroid disorder Father Diabetes Grandfather Diabetes Hypertension High cholesterol Grandmother Diabetes High cholesterol Arthritis History Items: No pertinent history Review of Systems Constitutional: Reports: Anorexia, Malaise, Weakness, Fatigue. Denies: Fever HEENT: Reports: Nasal Congestion, Sinus Congestion, Sore Throat. Denies: Head Aches, Sinus Drainage Cardiovascular: Denies: Chest Pain, Palpitations Respiratory: Reports: Cough - Mild cough. Denies: Shortness of breath at rest, Sputum production Gastrointestinal: Reports: Nausea, Vomiting. Denies: Abdominal Pain, Hematemesis, Hematochezia, Melena Genitourinary: Denies: Dysuria Musculoskeletal: Denies: Joint Pain, Joint Tenderness Skin: Denies: Rash, Wounds Neurological: Reports: Seizures. Denies: Focal weakness, Numbness, Tingling Psychiatric: Denies: Anxiety, Depression, Homicidal Ideations, Suicidal Ideations Hematologic/ Lymphatic: Denies: Easy Bruising, Easy Bleeding VTE Information - Inpt Only VTE Present on Admission: No VTE Mechan Device Prophylaxis: None VTE Pharm Prophylaxis ordered?: Yes - Physical Exam Vitals/I&O's: Vital Signs Temp Pulse Resp BP Pulse Ox 98 F 117 H 18 105/59 L 100 12/24/19 13:41 12/24/19 13:41 12/24/19 13:41 12/24/19 13:41 12/24/19 13:41 Oxygen Delivery Method Room Air Weight: 150 lb Body Mass Index (BMI) 20.3 Finger Stick Blood Glucose 332 General: Alert, Oriented x3, Cooperative HEENT: Atraumatic, PERRLA, EOMI, Normocephalic Oral: No Gingival or Mucosal Lesions/ Ulcerations, Dry Mucosa, - - No oropharyngeal erythema or lymphoid follicle seen. Tenderness present over bilateral submandibular region, right more than left. Neck: Supple, No JVD, Negative Carotid Bruits Lungs: Clear to auscultation, No rhonchi, No wheeze, No rales, Diminished - Air entry diminished bilaterally. Cardiovascular: Regular rate, Regular Rhythm, Normal S1, Normal S2, No murmurs Abdomen: Bowel Sounds Present, Soft, Non Tender, Non-Distended Extremities: No edema, Capillary Refill Less than 3 Seconds Skin: No rashes, No breakdown Musculoskeletal: No Tenderness to Palpation of Joints or Extremities Neurological: Cranial nerves II-XII grossly intact, Neuro grossly intact, - - No seizure in the last 2 days Psych/Mental Status: Normal Affect, Appropriate Laboratory Results 12/24/19 14:20: WBC 10.8, RBC 4.85, Hgb 14.6, Hct 42.0, MCV 86.6, MCH 30.1, MCHC 34.8, RDW Std Deviation 45.0 H, RDW Coeff of Omayra 14.5, Plt Count 399, MPV 9.1, Immature Gran % (Auto) 0.300, Neut % (Auto) 66.2, Lymph % (Auto) 23.9, [place] % (Auto) 9.2, Eos % (Auto) 0.1, Baso % (Auto) 0.3, Absolute Neuts (auto) 7.2, Absolute Lymphs (auto) 2.59, Nucleated RBC % 0 12/24/19 14:20: Sodium 126 L, Potassium 3.4 L, Chloride 90 L, Carbon Dioxide 20.0 L, Anion Gap 16 H, BUN 17, Creatinine 1.64 H, Estim Creat Clear Calc 55.89, Est GFR (MDRD) Af Amer 59 L, Est GFR (MDRD) Non-Af 49 L, BUN/Creatinine Ratio 10.4, Glucose 135 H, Calcium 9.1 12/24/19 14:20: Acetone Level MODERATE H Current Medications Dextrose (D50w Syringe) 12.5 gm IV X1 PRN PRN Reason: dka Stop: 12/24/19 17:00 Sodium Chloride () 1,000 mls @ 999 mls/hr IV .Q1H1M ONE Stop: 12/24/19 16:50 Insulin Human Lispro 100 unit/ (Sodium Chloride) 100 mls @ 6.804 mls/hr IV .[id number] [facility]; Protocol Assessment/Plan All Active Problems (Last Reviewed 10/31/19 @ 15:32 by Aris Nelson MD) Dehydration (Acute) Hypokalemia (Acute) Hypophosphatemia (Acute) Altered mental status (Acute) Acute kidney injury (Acute) DKA (diabetic ketoacidoses) (Acute) The patient is a 44-year-old gentleman with history of type 1 diabetes, recurrent DKA with recurrent admissions, traumatic SDH resulting into craniectomy, postcraniotomy seizures is being admitted for DKA, with electrolyte abnormality Labs in ER is consistent with DKA, anion gap 16, bicarb 20, moderate acetone, sodium 126 and potassium 3.4 although glucose is slightly elevated 135. BUN/creatinine 17/1.64. Patient had 1 L of normal saline bolus in ED and is started on insulin drip. 1. DKA with high anion gap metabolic acidosis with hypokalemia and hyponatremia: Patient is being admitted in ICU. Patient is being started on IV fluid normal saline. 1 more liter of normal saline IV bolus ordered as patient is significantly dehydrated. On IV regular insulin as per DKA protocol and BMP monitoring, intake and output. Sodium is low even after correction for hyperglycemia. 2. Acute kidney injury secondary dehydration from DKA: BUN/creatinine ratio does not fit in acute kidney disease secondary to dehydration but clinically it seems prerenal and has happened during previous admission. Monitor intake and output. Monitor electrolytes and replace. 3. Post craniectomy/alcohol withdrawal seizures: On Keppra 1500 mg twice daily and lamotrigine 200 mg twice daily. On folic acid and thiamine. Patient is also alcohol dependent. He had ED visit on December 18, 2018 for seizure and was sent home after treatment for hyperglycemia, glucose 435. 5. Alcohol dependence and tolerance/binge drinking with alcoholic cardiomyopathy: Patient denies alcohol intake this time but had binge alcohol drinking during previous admission on November 30, 2019. Serum alcohol and U tox ordered. patient had echo in April 2019. It is reported as Normal LV size. The estimated ejection fraction is 50 %. Borderline global hypokinesis of left ventricle. Left ventricular systolic function is lower limits of normal. The global longitudinal strain = -12.8% (abnormal). Compared to prior study, there is no significant change. Continue atorvastatin and carvedilol. 5. Other comorbidities include anxiety and depression: Patient is on bupropion, mirtazapine: Home medications reconciliation done. DVT prophylaxis, moderate risk in view of multiple comorbidities: Lovenox 40 mg subcu daily. Discontinue if platelet count drops less than 50,000 or hemoglobin less than 8 g%. patient had occult gastric blood positive during previous admission on November 2019 Code Visit Inpatient E&M: 21931 Init Hosp L3
[2019-12-24] MEDS: 0.9% Normal Saline 1,000 ML 999 ML IV ×2 (16:00→18:49)
--- NOTE | 2019-12-24 16:19 | NURSING ---
ICU 2 DKA FELY
--- NOTE | 2019-12-24 16:27 | ED.RN ---
PT HARD STICK, ATTEMPTING SECOND IV LINE FOR MEDICATION INFUSIONS. CHARGE NURSE AT BEDSIDE LOOKING FOR SECOND IV.
[2019-12-24] MEDS: Dextrose 10%-Water 250 ML 999 ML IV (17:06)
--- NOTE | 2019-12-24 17:39 | ED.RN ---
PER DR. LARSON VERBAL ORDER, PT TO RECEIVE DOSE OF D10 IV INFUSION PRIOR TO BEING STARTED ON INSULIN DRIP FOR DKA. PT REPEAT BG 279. DEXTROSE INFUSION COMPLETE, SEE JAN. INSULIN DRIP INITIATED. PT AWAITING ICU BED. RESTING COMFORTABLY DENIES NEEDS AT THIS TIME.
[2019-12-24 17:45] LABS: Bedside Glucose 279 mg/dL (70-110)
[2019-12-24 18:20] LABS: Bedside Glucose 276 mg/dL (70-110)
[2019-12-24 19:00] LABS: White Blood Cells 0 SEEN /hpf (0-5)
[2019-12-24 19:02] LABS: Bacteria 0 SEEN /hpf (None Seen); Mucous, Urine 0 SEEN /hpf (<or=2+); Red Blood Cells-Urine 0 SEEN /hpf (0-5)
[2019-12-24 19:15] LABS: Bedside Glucose 204 mg/dL (70-110)
[2019-12-24 19:24] LABS: Amphetamine Urine VISTA NEGATIVE (<1000 ng/mL); Barbiturate Urine VISTA NEGATIVE (< 200 ng/mL); Benzodiazepine Urine VISTA NEGATIVE (< 200 ng/mL); Cocaine Urine VISTA NEGATIVE (< 300 ng/mL); Ecstacy Urine VISTA POSITIVE (< 500 ng/mL); Methadone Urine VISTA NEGATIVE (< 300 ng/mL); PCP Urine VISTA NEGATIVE (< 25 ng/mL); THC Urine VISTA NEGATIVE (< 50 ng/mL); Vista UDS pH Range 6
[2019-12-24 19:29] LABS: Color, Urine Yellow (Yellow); Glucose, Dipstick 1000 mg/dl (Normal); Leukocyte Esterase-Dipstick Negative /ul (Negative); Nitrite-Dipstick Negative (Negative); Occult Blood-Urine Negative /ul (Negative); Protein-Dipstick 15 mg/dl (Negative); Urine Bilirubin Dipstick Negative (Negative); Urine Clarity Sl. Cloudy (Clear); Urine Urobilinogen Normal (Normal)
[2019-12-24 19:31] LABS: Ketone-Dipstick 150 mg/dl (Negative)
[2019-12-24 19:33] LABS: Squamous Epithelial Cells - UA 0-5 SEEN /hpf (0-5)
[2019-12-24] MEDS: Potassium Chloride 10mEq/100mL 10 MEQ/100 ML IV.SOLN. 100 MEQ IV BOLUS ×4 (19:45→22:47)
[2019-12-24 19:52] LABS: AST(SGOT) 12 U/L (15-37); Alanine Aminotransfer ALT/SGPT 29 U/L (16-61); Albumin, Serum 4.2 g/dL (3.2-5.0); Alkaline Phosphatase 88 U/L (45-117); Bilirubin, Direct 0.25 mg/dL (0.00-0.30); Globulin 3.3 g/dL (2.2-4.2); Protein, Total 7.5 g/dL (6.4-8.2)
[2019-12-24] MEDS: Enoxaparin 40 MG/0.4 ML Syringe SC (19:52)
[2019-12-24] MEDS: oxyCODONE 5 MG Tablet PO (19:52)
[2019-12-24] MEDS: 0.9% Saline Lock 10 ML Syringe IV (19:55)
[2019-12-24] MEDS: 0.9% Normal Saline 1,000 ML 500 ML IV (19:57)
[2019-12-24 20:16] LABS: Bedside Glucose 151 mg/dL (70-110)
[2019-12-24] MEDS: Dext 5%-0.45% NS 1,000 ML 150 ML IV (20:27)
[2019-12-24 20:40] LABS: Anion Gap 15 (5-15); BUN 10 mg/dL (7-18); BUN/Creat Ratio 9.3 RATIO (10-20); Chloride 109 mmol/L (98-107); Creatinine, Serum 1.07 mg/dL (0.70-1.30); EST Glomerular Filtration Rate 80 mL/min (>60); Est Glom Filt Rate - Afr Amer 97 mL/min (>60); Estimated Creatinine Clearance 85.62 ml/min; Glucose 159 mg/dL (74-106); Sodium Level 137 mmol/L (136-145)
[2019-12-24 20:42] LABS: Calcium,Total 6.4 mg/dL (8.5-10.1); Potassium 2.6 mmol/L (3.5-5.1)
[2019-12-24 21:03] LABS: Alcohol, Blood (Medical)-Serum < 3.0 mg/dL
[2019-12-24 21:07] LABS: Lactic Acid 1.6 mmol/L (0.4-1.9)
[2019-12-24 21:16] LABS: Bedside Glucose 127 mg/dL (70-110)
[2019-12-24] MEDS: levETIRAcetam 750 MG Tablet 1500 MG PO (21:17)
[2019-12-24] MEDS: guaiFENesin 1,200 MG Tablet 1200 MG PO (21:17)
[2019-12-24] MEDS: MELATONIN 3 MG TABLET 6 MG PO (21:18)
[2019-12-24] MEDS: Carvedilol 3.125 MG TABLET PO (21:18)
[2019-12-24] MEDS: Atorvastatin Calcium 20 MG Tablet PO (21:18)
[2019-12-24] MEDS: lamoTRIgine 100 MG Tablet 200 MG PO (21:18)
[2019-12-24] MEDS: Mirtazapine 30 MG Tablet PO (21:19)
[2019-12-24 21:52] LABS: Phosphorus 1.1 mg/dL (2.5-4.9)
[2019-12-24 22:10] LABS: Bedside Glucose 117 mg/dL (70-110)
[2019-12-24 23:11] LABS: Bedside Glucose 114 mg/dL (70-110)
[2019-12-25] VITALS (19 sets, daily range): BP systolic 91–131; BP diastolic 47–82; PULSE 86–100; RESP 11–17; TEMP 36.6–37; O2SAT 98–100
[2019-12-25 00:53] LABS: Anion Gap 7 (5-15); BUN 8 mg/dL (7-18); BUN/Creat Ratio 7.3 RATIO (10-20); Calcium,Total 7.6 mg/dL (8.5-10.1); Chloride 108 mmol/L (98-107); EST Glomerular Filtration Rate 77 mL/min (>60); Est Glom Filt Rate - Afr Amer 94 mL/min (>60); Estimated Creatinine Clearance 83.28 ml/min; Glucose 92 mg/dL (74-106); Potassium 3.7 mmol/L (3.5-5.1); Sodium Level 137 mmol/L (136-145)
[2019-12-25 01:10] LABS: Bedside Glucose 83 mg/dL (70-110)
[2019-12-25 03:20] LABS: Bedside Glucose 73 mg/dL (70-110)
[2019-12-25 03:20] LABS: Bedside Glucose 136 mg/dL (70-110)
[2019-12-25 04:11] LABS: Absolute Lymphocyte Count 1.44 X10^3/uL (0.83-4.51); Absolute Neutrophil Count 3.5 X10^3/uL (2.0-7.7); Basophil# 0.01 X10^3/uL; Basophil% 0.2 % (0-1); Eosinophil# 0.06 X10^3/uL; Eosinophils% 1.1 % (0-5); Hematocrit 30.5 % (40-54); Hemoglobin 10.9 g/dL (13.0-16.5); Lymphocyte # 1.44 X10^3/ul (4.0); Lymphocyte % 26.3 % (19-41); Mean Corp Hgb Conc 35.7 g/dL (32-36); Mean Corpuscular Hgb 31.1 pg (27.0-32.0); Mean Corpuscular Volume 86.9 fL (80-94); Mean Platelet Vol. 8.7 fl (6.2-12.0); Monocyte% 9.1 % (0-10); NRBC Flagged by Analyzer 0 % (0-5); Neutrophil # 3.46 X10^3/uL (2.7-7.7); Neutrophil % 63.1 % (47-70); Platelet Count 249 K/mm3 (150-450); RBC Distribution Width CV 14.3 % (11.6-14.6); RBC Distribution Width SD 43.7 fl (35.1-43.9); Red Blood Count 3.51 M/mm3 (4.6-6.2); White Blood Count 5.5 K/mm3 (4.4-11.0)
[2019-12-25 04:24] LABS: Anion Gap 5 (5-15); BUN 8 mg/dL (7-18); BUN/Creat Ratio 7.8 RATIO (10-20); Calcium,Total 7.7 mg/dL (8.5-10.1); Chloride 104 mmol/L (98-107); Creatinine, Serum 1.03 mg/dL (0.70-1.30); EST Glomerular Filtration Rate 83 mL/min (>60); Est Glom Filt Rate - Afr Amer 101 mL/min (>60); Estimated Creatinine Clearance 88.94 ml/min; Glucose 113 mg/dL (74-106); Magnesium 1.7 mg/dL (1.6-2.6); Potassium 3.8 mmol/L (3.5-5.1); Sodium Level 134 mmol/L (136-145)
[2019-12-25 04:39] LABS: Phosphorus 3.3 mg/dL (2.5-4.9)
[2019-12-25 06:45] LABS: Bedside Glucose 48 mg/dL (70-110)
[2019-12-25] MEDS: Dextrose 10%-Water 250 ML 999 ML IV (06:59)
[2019-12-25 07:01] LABS: Bedside Glucose 49 mg/dL (70-110)
--- NOTE | 2019-12-25 07:21 | PCM.PN.HOSP ---
Subjective: Patient overnight with closure of his anion gap x3, transition to his home a subcu insulin regimen with following this hypoglycemia although improved with bolus of dextrose with transition to oral diet, tolerated with blood sugars appropriate following this. Discussed current presentation at length with patient and he notes that when he goes home he occasionally will not eat as much because he states that his mother and his grandmother are not good cooks. Discussed that maybe he should invest in learning to cook himself and he notes he is a very good cook and he will cook for him and his but somehow he just does not want to. Discussed with case hardener and social work and attempting to again assist him at home in any way possible but despite attempts have often been not successful. Patient during visit also requesting chronic narcotic therapy which he states that he normally takes at home however upon further delving admits that he only has had this from the ED and this has been remotely therefore requested he discuss this with his primary care physician following which he noted she would not give it to him therefore stated he should just request a pain management consultation if he felt this appropriate. Patient denies fevers, chills, nausea, emesis, abdominal pain, chest pain or dyspnea. Objective: Physical Examination: General: awake, alert, oriented x 3 and cooperative, seated upright in the ICU bed in no apparent distress, just ate his breakfast and states feeling improved, back at baseline. Skin: normal color, turgor, no icterus, cyanosis. HEENT: AT/NC, EOMI, PERRLA, MMM. Lungs: CTA bilaterally, moderate effort, moderate decrease BL bases, no rales, ronchi or wheezing. Heart: regular rate and rhythm; no gallop, rub audible. Abdomen: soft, thin habitus, NTTP, ND, normal BS. Extremities: no cyanosis, clubbing, or edema. Neurological: patient awake, alert, oriented x 3; cognitive function intact; pupils equally reactive to light and accomodation; cranial nerves II-XII grossly normal, moving all 4 extremities, no focal deficits, strength mildly to moderately global decrease given recent acute presentation, improving. Psychiatric: affect appears mildly irritated, requesting more coffee, lengthy discussions regarding importance of oral intake, states he does not eat if the food not good, no acute evidence of depressive or anxiety feelings. Vitals/I&O's: Vital Signs Temp Pulse Resp BP Pulse Ox 98.2 F 91 14 120/63 100 12/25/19 04:00 12/25/19 07:00 12/25/19 07:00 12/25/19 07:00 12/25/19 07:00 Oxygen Delivery Method Room Air Weight: 150 lb 2.157 oz Body Mass Index (BMI) 20.2 Finger Stick Blood Glucose 136 Intake and Output for Last 24 Hours 12/23/19 12/24/19 12/25/19 23:59 23:59 23:59 Intake Total 4638.16 / 4638.16 1110.44 / 1110.44 Output Total 1225 / 1225 925 / 925 Balance 3413.16 / 3413.16 185.44 / 185.44 Laboratory Results 12/24/19 14:20: WBC 10.8, RBC 4.85, Hgb 14.6, Hct 42.0, MCV 86.6, MCH 30.1, MCHC 34.8, RDW Std Deviation 45.0 H, RDW Coeff of Omayra 14.5, Plt Count 399, MPV 9.1, Immature Gran % (Auto) 0.300, Neut % (Auto) 66.2, Lymph % (Auto) 23.9, [place] % (Auto) 9.2, Eos % (Auto) 0.1, Baso % (Auto) 0.3, Absolute Neuts (auto) 7.2, Absolute Lymphs (auto) 2.59, Nucleated RBC % 0 12/24/19 14:20: Sodium 126 L, Potassium 3.4 L, Chloride 90 L, Carbon Dioxide 20.0 L, Anion Gap 16 H, BUN 17, Creatinine 1.64 H, Estim Creat Clear Calc 55.89, Est GFR (MDRD) Af Amer 59 L, Est GFR (MDRD) Non-Af 49 L, BUN/Creatinine Ratio 10.4, Glucose 135 H, Calcium 9.1 12/24/19 14:20: Acetone Level MODERATE H 12/24/19 14:20: Total Bilirubin 0.70, Direct Bilirubin 0.25, AST 12 L, ALT 29, Alkaline Phosphatase 88, Total Protein 7.5, Albumin 4.2, Globulin 3.3 12/24/19 17:34: POC Glucose 279 H 12/24/19 18:14: POC Glucose 276 H 12/24/19 18:21: Magnesium 2.0 12/24/19 18:50: Urine Opiates Screen NEGATIVE, Urine Methadone Screen NEGATIVE, Ur Barbiturates Screen NEGATIVE, Ur Phencyclidine Scrn NEGATIVE, Ur Amphetamines Screen NEGATIVE, U Methamphetamin-MDMA POSITIVE H, U Benzodiazepines Scrn NEGATIVE, Urine Cocaine Screen NEGATIVE, U Cannabinoids Screen NEGATIVE, Ur Drug Screen Comment 12/24/19 18:50: Urine Color Yellow, Urine Clarity Sl. Cloudy, Urine pH 5.0, Ur Specific [place] 1.020, Urine Protein 15 H, Urine Glucose (UA) 1000 H, Urine Ketones 150 H, Urine Occult Blood Negative, Urine Nitrite Negative, Urine Bilirubin Negative, Urine Urobilinogen Normal, Ur Leukocyte Esterase Negative, Urine RBC 0 SEEN, Urine WBC 0 SEEN, Ur Squamous Epith Cells 0-5 SEEN, Urine Bacteria 0 SEEN, Urine Mucus 0 SEEN 12/24/19 19:10: POC Glucose 204 H 12/24/19 19:46: Ethyl Alcohol < 3.0 12/24/19 19:46: Lactic Acid 1.6 12/24/19 19:46: Sodium 137, Potassium 2.6 L*, Chloride 109 H, Carbon Dioxide 13.0 L, Anion Gap 15, BUN 10, Creatinine 1.07, Estim Creat Clear Calc 85.62, Est GFR (MDRD) Af Amer 97, Est GFR (MDRD) Non-Af 80, BUN/Creatinine Ratio 9.3 L, Glucose 159 H, Calcium 6.4 L* 12/24/19 20:11: POC Glucose 151 H 12/24/19 20:57: Phosphorus 1.1 L* 12/24/19 21:09: POC Glucose 127 H 12/24/19 22:04: POC Glucose 117 H 12/24/19 23:04: POC Glucose 114 H 12/24/19 23:37: Sodium Cancelled, Potassium Cancelled, Chloride Cancelled, Carbon Dioxide Cancelled, Anion Gap Cancelled, BUN Cancelled, Creatinine Cancelled, Estim Creat Clear Calc Cancelled, Est GFR (MDRD) Af Amer Cancelled, Est GFR (MDRD) Non-Af Cancelled, BUN/Creatinine Ratio Cancelled, Glucose Cancelled, Calcium Cancelled 12/25/19 00:23: Sodium 137, Potassium 3.7, Chloride 108 H, Carbon Dioxide 22.0, Anion Gap 7, BUN 8, Creatinine 1.10, Estim Creat Clear Calc 83.28, Est GFR (MDRD) Af Amer 94, Est GFR (MDRD) Non-Af 77, BUN/Creatinine Ratio 7.3 L, Glucose 92, Calcium 7.6 L 12/25/19 01:06: POC Glucose 83 12/25/19 02:04: POC Glucose 73 12/25/19 03:16: POC Glucose 136 H 12/25/19 04:00: WBC 5.5, RBC 3.51 L, Hgb 10.9 L, Hct 30.5 L, MCV 86.9, MCH 31.1, MCHC 35.7, RDW Std Deviation 43.7, RDW Coeff of Omayra 14.3, Plt Count 249, MPV 8.7, Immature Gran % (Auto) 0.200, Neut % (Auto) 63.1, Lymph % (Auto) 26.3, [place] % (Auto) 9.1, Eos % (Auto) 1.1, Baso % (Auto) 0.2, Absolute Neuts (auto) 3.5, Absolute Lymphs (auto) 1.44, Nucleated RBC % 0 12/25/19 04:00: Sodium 134 L, Potassium 3.8, Chloride 104, Carbon Dioxide 25.0, Anion Gap 5, BUN 8, Creatinine 1.03, Estim Creat Clear Calc 88.94, Est GFR (MDRD) Af Amer 101, Est GFR (MDRD) Non-Af 83, BUN/Creatinine Ratio 7.8 L, Glucose 113 H, Calcium 7.7 L, Magnesium 1.7 12/25/19 04:00: Phosphorus 3.3 12/25/19 06:39: POC Glucose 48 L 12/25/19 06:57: POC Glucose 49 L Current Medications Acetaminophen (Tylenol) 650 mg PO Q6H PRN PRN PRN Reason: Pain Score 1-3/Temp > 100.7 F Albuterol Sulfate (Ventolin Aerosols) 2.5 mg INHALATION Q4H PRN PRN PRN Reason: SOB &/OR WHEEZING Atorvastatin Calcium (Lipitor) 20 mg PO QHS [facility] Last Admin: 12/24/19 21:18 Dose: 20 mg Documented by: Bupropion HCl (Wellbutrin Xl) 150 mg PO DAILY [facility] Carvedilol (Coreg) 3.125 mg PO BID [facility] Last Admin: 12/24/19 21:18 Dose: 3.125 mg Documented by: Enoxaparin Sodium (Lovenox) 40 mg SC DAILY [facility] Last Admin: 12/24/19 19:52 Dose: 40 mg Documented by: Glucagon () 1 mg IM .X1 PRN PRN Reason: Hypoglycemia Guaifenesin (Mucinex) 1,200 mg PO BID [facility] Last Admin: 12/24/19 21:17 Dose: 1,200 mg Documented by: Dextrose (Dextrose 10%-Water) 250 mls @ 999 mls/hr IV .Q16M PRN; Protocol PRN Reason: HYPOGLYCEMIA Last Admin: 12/25/19 06:59 Dose: 999 mls/hr Documented by: Insulin Glargine (Lantus ([facility])) 35 units SC QHS [facility] Last Admin: 12/25/19 01:24 Dose: 35 u Documented by: Insulin Human Lispro (Humalog Kwikpen ([facility])) 0 unit SC [facility]; Protocol Last Admin: 12/25/19 06:45 Dose: Not Given Documented by: Lamotrigine (Lamictal) 200 mg PO BID [facility] Last Admin: 12/24/19 21:18 Dose: 200 mg Documented by: Levetiracetam (Keppra Tablet) 1,500 mg PO BID [facility] Last Admin: 12/24/19 21:17 Dose: 1,500 mg Documented by: Lisinopril (Zestril) 2.5 mg PO DAILY [facility] Melatonin (Melatonin) 6 mg PO QHS [facility] Last Admin: 12/24/19 21:18 Dose: 6 mg Documented by: Mirtazapine (Remeron) 30 mg PO QHS [facility] Last Admin: 12/24/19 21:19 Dose: 30 mg Documented by: Morphine Sulfate () 2 mg IV Q3H PRN PRN PRN Reason: Pain Score 6-10/10 Nitroglycerin (Nitrostat) 0.4 mg SUBLINGUAL Q5M PRN PRN Reason: CARDIAC/CHEST PAIN Ondansetron HCl (Zofran) 4 mg IV Q8H PRN PRN PRN Reason: NAUSEA/VOMITING Oxycodone HCl (Oxyir) 5 mg PO Q4H PRN PRN PRN Reason: Pain Score 4-5/10 Last Admin: 12/24/19 19:52 Dose: 5 mg Documented by: Prochlorperazine Edisylate (Compazine Iv) 5 mg IV Q4H PRN PRN PRN Reason: Breakthrough Nausea/Vomiting Sodium Chloride () 10 - 40 ml IV UD PRN PRN Reason: SALINE FLUSH Last Admin: 12/24/19 19:55 Dose: 20 ml Documented by: Thiamine HCl (Vitamin B1) 100 mg PO DAILY [facility] Vital Signs/Narrative: Vital Signs Temp Pulse Resp BP Pulse Ox 12/25/19 07:00 91 14 120/63 100 12/25/19 06:00 98 17 91/47 L 98 12/25/19 05:00 89 17 120/64 98 12/25/19 04:00 98.2 F 86 11 L 123/80 H 100 12/25/19 03:38 91 Medical Necessity - Tobacco Use Smoking Status: Current every day smoker Tobacco Use: Cigarettes Assessment/Plan All Active Problems (Last Reviewed 10/31/19 @ 15:32 by Aris Nelson MD) Dehydration (Acute) Hypokalemia (Acute) Hypophosphatemia (Acute) Altered mental status (Acute) Acute kidney injury (Acute) DKA (diabetic ketoacidoses) (Acute) The patient is a 44 y/o M w/ PMHx: Diabetes mellitus type I, CAD, Dilated Cardiomyopathy, Tobacco use, Seizure disorder, EtOH Abuse who was recently discharged on 12/15/19 for acute DKA who now re-presents to the [facility] ED on 12/24/19 with onset nausea, emesis, poor appetite x 2 days in DKA. (1) Acute DKA w/ Diabetes mellitus type I: Initially admitted to the ICU, maintained on insulin drip, transitioned to SC regimen once gap closed now x 3; however, had notable hypoglycemia following SC administration on 12/25/19 1:00 am, now on dextrose drip, will continue to monitor and if continues to improves will transition MS. Once appropriate will transition to SC insulin regimen with insulin sliding scale. Nutrition consultation for education and teaching w/ encouraged diet and insulin regimen compliance. (2) History of EtOH Withdrawal: Notes no intake but binge history, notable mag and phos deficits which have been corrected, will initiate CIWA to be cautious with noted EtOH level unremarkable, unclear last intake. Maintain on thiamine, folic acid, MVI. (3) Acute kidney injury: Secondary to #1. Admission BUN/Cr 17/1.64, prior baseline creatinine noted to be normal, 12/25/19 BUN/Cr 8/1.03. Will continue to hydrate w/ as noted dextrose given hypoglycemia. (4) Dilated Cardiomyopathy, CAD: Continue home aspirin, Coreg, lisinopril, not on statin therapy. (5) Hypertension: Continue home regimen including coreg, lisinopril given improved renal function, PRN hydralazine. (6) Hyperlipidemia: Not on regimen. (7) Seizure Disorder: Continue home keppra and lamictal regimen. (8) Tobacco Abuse: Encouraged cessation, inpatient consultation per RT, NR if desired. (9) Anxiety and Depression: Continue home buproprion and remeron regimen. (10) GERD: Famotidine. (11) DVT Prophylaxis: SCDs, Lovenox.
[2019-12-25 07:25] LABS: Bedside Glucose 203 mg/dL (70-110)
[2019-12-25] MEDS: oxyCODONE 5 MG Tablet PO (08:18)
[2019-12-25] MEDS: Folic Acid 1 MG Tablet PO (08:18)
[2019-12-25] MEDS: guaiFENesin 1,200 MG Tablet 1200 MG PO (09:10)
[2019-12-25] MEDS: Thiamine Hydrochloride 100 MG Tablet PO (09:10)
[2019-12-25] MEDS: buPROPion (XL) 150 MG TABLET.XL PO (09:10)
[2019-12-25] MEDS: levETIRAcetam 750 MG Tablet 1500 MG PO (09:10)
[2019-12-25] MEDS: lamoTRIgine 100 MG Tablet 200 MG PO (09:10)
[2019-12-25] MEDS: Carvedilol 3.125 MG TABLET PO (09:11)
[2019-12-25] MEDS: Lisinopril 2.5 MG Tablet PO (09:11)
[2019-12-25] MEDS: Enoxaparin 40 MG/0.4 ML Syringe SC (09:11)
[2019-12-25] MEDS: Famotidine 20 MG Tablet PO (09:13)
--- NOTE | 2019-12-25 09:58 | PCM.DC ---
- Discharge Diagnoses Current Active Problems: (1) Acute DKA w/ Diabetes mellitus type I (2) History of EtOH Withdrawal (3) Acute kidney injury, Secondary to #1 (4) Dilated Cardiomyopathy, CAD (5) Hypertension (6) Hyperlipidemia (7) Seizure Disorder (8) Tobacco Abuse (9) Anxiety and Depression (10) GERD You will use the following diet at home:: Calorie/Carbohydrate Controlled (specify 1200, 1400, etc) - Recommend routine intake w/ ADA 1800 calorie diet. Discharge Activity: Return to Normal Activity Call your doctor if you observe: Fever of 101 or Higher, Inability to urinate, Inability to have a bowel movement, Shortness of breath, Dizziness, Chest pain, Uncontrolled pain Instructions: Diabetes and Alcohol Consumption, Using a Blood Sugar Log, Diabetes and Heart Disease, What is Type 1 Diabetes?, Resources for People with Diabetes, Using Injected Insulin Additional Instructions: During the admission you requested narcotic therapy script at discharge. Given this is not a chronic medication this was deferred. Please discuss pain management referral with your primary care physician if felt appropriate. Allergies/Adverse Reactions: Allergies zinc Allergy (Verified 12/24/19 17:10) Hives Medications to take at Discharge Atorvastatin Calcium 20 mg PO DAILY 04/22/19 Melatonin 6 mg PO QHS 09/17/19 Thiamine HCl [Vitamin B-1] 100 mg PO DAILY 09/17/19 acamprosate 333 mg tablet,delayed release 666 mg PO BID tab 10/31/19 Albuterol Inhaler [Ventolin Hfa] 1 - 2 puff INHALATION Q4H PRN PRN 11/30/19 Lamotrigine [Lamictal] 200 mg PO BID 12/07/19 Potassium Chloride [K-Dur] 20 meq PO BIDCM #60 tab 12/09/19 Carvedilol 3.125 mg PO BID 12/13/19 Folic Acid 800 mcg PO DAILY 12/13/19 Insulin Glargine,Hum.rec.anlog [Basaglar Kwikpen U-100] 35 unit SUBCUT QHS 12/13/19 Insulin Lispro [Insulin Lispro Kwikpen U-100] See Protocol SUBCUT TID 12/13/19 Levetiracetam 1,500 mg PO BID 12/13/19 Lisinopril [Zestril] 2.5 mg PO DAILY 12/13/19 Mirtazapine 30 mg PO QHS 12/13/19 buPROPion XL [Wellbutrin Xl] 150 mg PO DAILY 12/24/19 Blood Sugar Diagnostic [Test Strips] 1 ea UD #100 strip 12/25/19 Famotidine [Pepcid] 20 mg PO BID #60 tab 12/25/19 Multivitamins,Ther W-Minerals [Multivitamin With Minerals] 1 tab PO DAILYCM #30 tab 12/25/19 The following prescriptions were given: Multivitamins,Ther W-Minerals [Multivitamin With Minerals] 1 tab PO DAILYCM #30 tab Transmission Status: Pending to [id number] Famotidine [Pepcid] 20 mg PO BID #60 tab Transmission Status: Pending to [id number] Blood Sugar Diagnostic [Test Strips] 1 [facility] UD #100 strip Transmission Status: Pending to [id number] Primary Care Physician: Moni Cintron MD [Primary Care Provider] - Please follow up with your Primary Care Physician in: Follow-up within 3-5 days to review admission. Test Results: Test results from this visit will be discussed in further detail at your follow-up appointment, if applicable. Proposed Discharge Date: 12/25/19
--- NOTE | 2019-12-25 10:10 | CASEMGMT ---
SW met w/pt in room in regard to how managing at home and discharge plan. PCP: Dr. Cintron Specialists: COMF[facility] Phillips(has appt tomorrow) Insurance/Prescription Coverage: [employer] HMO/Medicaid Pharmacy: [facility] on [address] LW/POA: None LNOK/Living arrangements: Pt lives with his parents Prior level of function: Pt is independent. Pt has a license, no car. Pt states parents take him to appts DME/HHC/SNF: None Substance abuse: Pt states not using any substances, not drinking. Pt states stopped drinking on New 's Day, and has not used drugs for a while Mental health: Pt does acknowledge history of depression and anxiety. Pt denies being suicidal/homicidal at this time. SW spoke w/pt about substance abuse, pt not interested in any resources for counseling at this time. SW asked pt about mental health, pt also not in treatment at present and declined any referrals for mental health at this time. SW spoke w/pt about increase in visits to hospital for DKA. Pt states it is due to his mother's cooking---however, pt has lived w/parents for last four years. Pt states has been diabetic since 2000. SW asked about supplies, pt states only needs test strips(SW notified physician). SW asked about follow up w/COMFORT Phillips, pt states he has an appointment tomorrow. SW asked pt about home health(his parents had asked in the ER as per RN about this). Pt states he called Medicare directly, called the number on the back of his card. He states he was told someone can come out twice per day to help him w/meds. SW explained unaware of any programs that would come out twice per day to help w/meds, asked if he would like SW assist in regard to this. He may be interested in getting this service but states he is going to follow up himself, states does not want SW assist. Pt also states he is about to move to [facility] on Dec 28, states he is 44 and does not want to be living w/his parents any longer. GERONIMO called [facility], message left for Skip to see if pt would be a candidate for their program. GERONIMO called Rosa Elena Early CM at [facility] who works w/Dr. Cintron' patients. Rosa Elena works w/[employer] already and states he has struggled for a long time w/compliance in regard to his meds. SW asked for clarification on when pt fell and had a subdural hematoma. This was just in August of 2019, and his noncompliance dates back to much earlier than this. She will follow up w/him after he is discharge. Plan: Home, pt declining any SW assist for referrals for mental health, substance abuse, home care. CAMDEN Salcedo
--- NOTE | 2019-12-25 10:33 | DS.PCM_ITS ---
Discharge Date and Diagnosis Date of Admission: 12/24/19 Date of Discharge: 12/25/19 - Primary Discharge Diagnosis (1) Acute DKA w/ Diabetes mellitus type I (2) History of EtOH Withdrawal (3) Acute kidney injury, Secondary to #1 (4) Dilated Cardiomyopathy, CAD (5) Hypertension (6) Hyperlipidemia (7) Seizure Disorder (8) Tobacco Abuse (9) Anxiety and Depression (10) GERD - Secondary Discharge Diagnosis Chronic Problems (Last Reviewed 10/31/19 @ 15:32 by Aris Nelson MD) Anxiety and depression (Chronic) Tobacco dependence (Chronic) Diabetes type 1, uncontrolled (Chronic) DKA w/ encephalopathy 03/2019 Alcoholic cardiomyopathy (Chronic) Nicotine dependence (Chronic) Hospital Course and Treatment Operations: None Procedures: EKG Summary of Care Provided: The patient is a 44 y/o M w/ PMHx: Diabetes mellitus type I, CAD, Dilated Cardiomyopathy, Tobacco use, Seizure disorder, EtOH Abuse who was recently discharged on 12/15/19 for acute DKA who now re-presented to the [facility] ED on 12/24/19 with onset nausea, emesis, poor appetite x 2 days in DKA. Initially admitted to the ICU, maintained on insulin drip, transitioned to SC regimen once gap closed now x 3; however, had notable hypoglycemia following SC administration on 12/25/19 1:00 am, administered dextrose drip bolus with improvement, restarted on diet with appropriate BS following. Discussed at length importance of diet and lifestyle in addition to compliance with his SC insulin regimen with insulin sliding scale. During admission, noted no EtOH since 11/2019 but suspicious, maintained on CIWA protocol, mag and phos obtained and supplemented. Also noted ELIZABETH, secondary to DKA presentation, admission BUN/Cr 17/1.64, prior baseline creatinine noted to be normal, 12/25/19 BUN/Cr 8/1.03. During evaluation, discussed current presentation at length as well as serial readmission with similar presentation with patient and he notes that when he goes home he occasionally will not eat as much because he states that his mother and his grandmother are not good cooks. Discussed that maybe he should invest in learning to cook himself and he noted he is a very good cook and he will cook for him and his but somehow he just does not want to. Discussed with case resolution specialist and social work and attempted to assist him at home in any way possible. Patient during visit also requesting chronic narcotic therapy which he states that he normally takes at home however upon further delving admits that he only has had this from the ED and this has been remotely therefore requested he discuss this with his primary care physician following which he noted she would not give it to him therefore stated he should just request a pain management consultation if he felt this appropriate. Patient discharged to home with strong encouragement for alterations in his lifestyle with follow-up with primary care physician. Patient clinically improved and resolved from his DKA faster than expected and felt appropriate for discharge to home on 12/25/2019 given this improvement. - Physical Exam Vitals/I&O's: Vital Signs Temp Pulse Resp BP Pulse Ox 98.6 F 93 11 L 121/70 H 100 12/25/19 10:00 12/25/19 10:00 12/25/19 10:00 12/25/19 10:12/25/19 10:00 Oxygen Delivery Method Room Air Weight: 150 lb 2.157 oz Body Mass Index (BMI) 20.2 Finger Stick Blood Glucose 136 Intake and Output for Last 24 Hours 12/23/19 12/24/19 12/25/19 23:59 23:59 23:59 Intake Total 4638.16 / 4638.16 1360.44 / 1360.44 Output Total 1225 / 1225 925 / 925 Balance 3413.16 / 3413.16 435.44 / 435.44 Microbiology Past 72 Hours 12/24/19 19:02 Mucosa - Nose Respiratory Panel (PCR) - Final Laboratory Results 12/24/19 14:20: WBC 10.8, RBC 4.85, Hgb 14.6, Hct 42.0, MCV 86.6, MCH 30.1, MCHC 34.8, RDW Std Deviation 45.0 H, RDW Coeff of Omayra 14.5, Plt Count 399, MPV 9.1, Immature Gran % (Auto) 0.300, Neut % (Auto) 66.2, Lymph % (Auto) 23.9, [place] % (Auto) 9.2, Eos % (Auto) 0.1, Baso % (Auto) 0.3, Absolute Neuts (auto) 7.2, Absolute Lymphs (auto) 2.59, Nucleated RBC % 0 12/24/19 14:20: Sodium 126 L, Potassium 3.4 L, Chloride 90 L, Carbon Dioxide 20.0 L, Anion Gap 16 H, BUN 17, Creatinine 1.64 H, Estim Creat Clear Calc 55.89, Est GFR (MDRD) Af Amer 59 L, Est GFR (MDRD) Non-Af 49 L, BUN/Creatinine Ratio 10.4, Glucose 135 H, Calcium 9.1 12/24/19 14:20: Acetone Level MODERATE H 12/24/19 14:20: Total Bilirubin 0.70, Direct Bilirubin 0.25, AST 12 L, ALT 29, Alkaline Phosphatase 88, Total Protein 7.5, Albumin 4.2, Globulin 3.3 12/24/19 17:34: POC Glucose 279 H 12/24/19 18:14: POC Glucose 276 H 12/24/19 18:21: Magnesium 2.0 12/24/19 18:50: Urine Opiates Screen NEGATIVE, Urine Methadone Screen NEGATIVE, Ur Barbiturates Screen NEGATIVE, Ur Phencyclidine Scrn NEGATIVE, Ur Amphetamines Screen NEGATIVE, U Methamphetamin-MDMA POSITIVE H, U Benzodiazepines Scrn NEGATIVE, Urine Cocaine Screen NEGATIVE, U Cannabinoids Screen NEGATIVE, Ur Drug Screen Comment 12/24/19 18:50: Urine Color Yellow, Urine Clarity Sl. Cloudy, Urine pH 5.0, Ur Specific [place] 1.020, Urine Protein 15 H, Urine Glucose (UA) 1000 H, Urine Ketones 150 H, Urine Occult Blood Negative, Urine Nitrite Negative, Urine Bilirubin Negative, Urine Urobilinogen Normal, Ur Leukocyte Esterase Negative, Urine RBC 0 SEEN, Urine WBC 0 SEEN, Ur Squamous Epith Cells 0-5 SEEN, Urine Bacteria 0 SEEN, Urine Mucus 0 SEEN 12/24/19 19:10: POC Glucose 204 H 12/24/19 19:46: Ethyl Alcohol < 3.0 12/24/19 19:46: Lactic Acid 1.6 12/24/19 19:46: Sodium 137, Potassium 2.6 L*, Chloride 109 H, Carbon Dioxide 13.0 L, Anion Gap 15, BUN 10, Creatinine 1.07, Estim Creat Clear Calc 85.62, Est GFR (MDRD) Af Amer 97, Est GFR (MDRD) Non-Af 80, BUN/Creatinine Ratio 9.3 L, Glucose 159 H, Calcium 6.4 L* 12/24/19 20:11: POC Glucose 151 H 12/24/19 20:57: Phosphorus 1.1 L* 12/24/19 21:09: POC Glucose 127 H 12/24/19 22:04: POC Glucose 117 H 12/24/19 23:04: POC Glucose 114 H 12/24/19 23:37: Sodium Cancelled, Potassium Cancelled, Chloride Cancelled, Carbon Dioxide Cancelled, Anion Gap Cancelled, BUN Cancelled, Creatinine Cancelled, Estim Creat Clear Calc Cancelled, Est GFR (MDRD) Af Amer Cancelled, Est GFR (MDRD) Non-Af Cancelled, BUN/Creatinine Ratio Cancelled, Glucose Cancelled, Calcium Cancelled 12/25/19 00:23: Sodium 137, Potassium 3.7, Chloride 108 H, Carbon Dioxide 22.0, Anion Gap 7, BUN 8, Creatinine 1.10, Estim Creat Clear Calc 83.28, Est GFR (MDRD) Af Amer 94, Est GFR (MDRD) Non-Af 77, BUN/Creatinine Ratio 7.3 L, Glucose 92, Calcium 7.6 L 12/25/19 01:06: POC Glucose 83 12/25/19 02:04: POC Glucose 73 12/25/19 03:16: POC Glucose 136 H 12/25/19 04:00: WBC 5.5, RBC 3.51 L, Hgb 10.9 L, Hct 30.5 L, MCV 86.9, MCH 31.1, MCHC 35.7, RDW Std Deviation 43.7, RDW Coeff of Omayra 14.3, Plt Count 249, MPV 8.7, Immature Gran % (Auto) 0.200, Neut % (Auto) 63.1, Lymph % (Auto) 26.3, [place] % (Auto) 9.1, Eos % (Auto) 1.1, Baso % (Auto) 0.2, Absolute Neuts (auto) 3.5, Absolute Lymphs (auto) 1.44, Nucleated RBC % 0 12/25/19 04:00: Sodium 134 L, Potassium 3.8, Chloride 104, Carbon Dioxide 25.0, Anion Gap 5, BUN 8, Creatinine 1.03, Estim Creat Clear Calc 88.94, Est GFR (MDRD) Af Amer 101, Est GFR (MDRD) Non-Af 83, BUN/Creatinine Ratio 7.8 L, Glucose 113 H, Calcium 7.7 L, Magnesium 1.7 12/25/19 04:00: Phosphorus 3.3 12/25/19 06:39: POC Glucose 48 L 12/25/19 06:57: POC Glucose 49 L 12/25/19 07:19: POC Glucose 203 H Current Medications Acetaminophen (Tylenol) 650 mg PO Q6H PRN PRN PRN Reason: Pain Score 1-3/Temp > 100.7 F Albuterol Sulfate (Ventolin Aerosols) 2.5 mg INHALATION Q4H PRN PRN PRN Reason: SOB &/OR WHEEZING Atorvastatin Calcium (Lipitor) 20 mg PO QHS [facility] Last Admin: 12/24/19 21:18 Dose: 20 mg Documented by: Bupropion HCl (Wellbutrin Xl) 150 mg PO DAILY [facility] Last Admin: 12/25/19 09:10 Dose: 150 mg Documented by: Carvedilol (Coreg) 3.125 mg PO BID [facility] Last Admin: 12/25/19 09:11 Dose: 3.125 mg Documented by: Enoxaparin Sodium (Lovenox) 40 mg SC DAILY [facility] Last Admin: 12/25/19 09:11 Dose: 40 mg Documented by: Famotidine (Pepcid) 20 mg PO BID [facility] Last Admin: 12/25/19 09:13 Dose: 20 mg Documented by: Folic Acid (Folic Acid) 1 mg PO DAILY@0800 [facility] Stop: 12/27/19 08:01 Last Admin: 12/25/19 08:18 Dose: 1 mg Documented by: Glucagon () 1 mg IM .X1 PRN PRN Reason: Hypoglycemia Guaifenesin (Mucinex) 1,200 mg PO BID [facility] Last Admin: 12/25/19 09:10 Dose: 1,200 mg Documented by: Dextrose (Dextrose 10%-Water) 250 mls @ 999 mls/hr IV .Q16M PRN; Protocol PRN Reason: HYPOGLYCEMIA Last Infusion: 12/25/19 07:39 Dose: Infused Documented by: Insulin Glargine (Lantus (Bk)) 35 units SC QHS [facility] Last Admin: 12/25/19 01:24 Dose: 35 u Documented by: Insulin Human Lispro (Humalog Kwikpen (Bk)) 0 unit SC ACHS [facility]; Protocol Last Admin: 12/25/19 06:45 Dose: Not Given Documented by: Lamotrigine (Lamictal) 200 mg PO BID [facility] Last Admin: 12/25/19 09:10 Dose: 200 mg Documented by: Levetiracetam (Keppra Tablet) 1,500 mg PO BID [facility] Last Admin: 12/25/19 09:10 Dose: 1,500 mg Documented by: Lisinopril (Zestril) 2.5 mg PO DAILY [facility] Last Admin: 12/25/19 09:11 Dose: 2.5 mg Documented by: Lorazepam (Ativan) 2 mg PO Q2H PRN PRN; Protocol PRN Reason: CIWA score > 8 but <15 Lorazepam (Ativan) 2 mg PO UD PRN; Protocol PRN Reason: CIWA score >/=15. Lorazepam (Ativan) 2 mg IV Q2H PRN PRN; Protocol PRN Reason: CIWA score > 8 but <15 Lorazepam (Ativan) 2 mg IV UD PRN; Protocol PRN Reason: CIWA score >/=15. Melatonin (Melatonin) 6 mg PO QHS [facility] Last Admin: 12/24/19 21:18 Dose: 6 mg Documented by: Mirtazapine (Remeron) 30 mg PO QHS [facility] Last Admin: 12/24/19 21:19 Dose: 30 mg Documented by: Morphine Sulfate () 2 mg IV Q3H PRN PRN PRN Reason: Pain Score 6-10/10 Multivitamins/Minerals ([facility]ivitamin With Minerals) [facility] Admin: 12/25/19 09:08 Dose: Not Given Documented by: Nicotine (Nicoderm Cq (Pbkc)) 21 mg TRANSDERM. DAILY [facility] Last Admin: 12/25/19 10:27 Dose: 21 mg Documented by: Nitroglycerin (Nitrostat) 0.4 mg SUBLINGUAL Q5M PRN PRN Reason: CARDIAC/CHEST PAIN Ondansetron HCl (Zofran) 4 mg IV Q8H PRN PRN PRN Reason: NAUSEA/VOMITING Oxycodone HCl (Oxyir) 5 mg PO Q4H PRN PRN PRN Reason: Pain Score 4-5/10 Last Admin: 12/25/19 08:18 Dose: 5 mg Documented by: Prochlorperazine Edisylate (Compazine Iv) 5 mg IV Q4H PRN PRN PRN Reason: Breakthrough Nausea/Vomiting Sodium Chloride () 10 - 40 ml IV UD PRN PRN Reason: SALINE FLUSH Last Admin: 12/24/19 19:55 Dose: 20 ml Documented by: Thiamine HCl (Vitamin B1) 100 mg PO DAILY [facility] Last Admin: 12/25/19 09:10 Dose: 100 mg Documented by: Discharge Activity: Return to Normal Activity Call your doctor if you observe: Fever of 101 or Higher, Inability to urinate, Inability to have a bowel movement, Shortness of breath, Dizziness, Chest pain, Uncontrolled pain Home Medications: Medications to take at Discharge Atorvastatin Calcium 20 mg PO DAILY 04/22/19 Melatonin 6 mg PO QHS 09/17/19 Thiamine HCl [Vitamin B-1] 100 mg PO DAILY 09/17/19 acamprosate 333 mg tablet,delayed release 666 mg PO BID tab 10/31/19 Albuterol Inhaler [Ventolin Hfa] 1 - 2 puff INHALATION Q4H PRN PRN 11/30/19 Lamotrigine [Lamictal] 200 mg PO BID 12/07/19 Potassium Chloride [K-Dur] 20 meq PO BIDCM #60 tab 12/09/19 Carvedilol 3.125 mg PO BID 12/13/19 Folic Acid 800 mcg PO DAILY 12/13/19 Insulin Glargine,Hum.rec.anlog [Basaglar Kwikpen U-100] 35 unit SUBCUT QHS 12/13/19 Insulin Lispro [Insulin Lispro Kwikpen U-100] See Protocol SUBCUT TID 12/13/19 Levetiracetam 1,500 mg PO BID 12/13/19 Lisinopril [Zestril] 2.5 mg PO DAILY 12/13/19 Mirtazapine 30 mg PO QHS 12/13/19 buPROPion XL [Wellbutrin Xl] 150 mg PO DAILY 12/24/19 Blood Sugar Diagnostic [Test Strips] 1 ea UD #100 strip 12/25/19 Famotidine [Pepcid] 20 mg PO BID #60 tab 12/25/19 Multivitamins,Ther W-Minerals [Multivitamin With Minerals] 1 tab PO DAILYCM #30 tab 12/25/19 Following Prescrptions Were Given to Patient: Multivitamins,Ther W-Minerals [Multivitamin With Minerals] 1 tab PO DAILYCM #30 tab Transmission Status: Received by [id number] Famotidine [Pepcid] 20 mg PO BID #60 tab Transmission Status: Received by [id number] Blood Sugar Diagnostic [Test Strips] 1 ea MC UD #100 strip Transmission Status: Received by [id number] Primary Care Physician: Moni Cintron MD [Primary Care Provider] - Please follow up with your Primary Care Physician in: Follow-up within 3-5 days to review admission. Patient Instructions: Diabetes and Alcohol Consumption, Using a Blood Sugar Log, Diabetes and Heart Disease, Resources for People with Diabetes, What is Type 1 Diabetes?, Using Injected Insulin Disposition: Home Minutes spent on discharge:: 35 Patient Condition:: Fair Medical Necessity - Tobacco Use Smoking Status: Current every day smoker Tobacco Use: Cigarettes Meaningful Use Info Meaningful Use Diagnoses (Choose all that apply): None applicable Code Visit Inpatient E&M: 12784 Disch Hosp
[2019-12-25 11:26] LABS: Bedside Glucose 163 mg/dL (70-110)
[2019-12-25] MEDS: Insulin Lispro 100 UNIT/ML INSULN.PEN SC (11:30)
--- NOTE | 2019-12-26 09:42 | CASEMGMT ---
SW spoke w/Skip with [facility], given pt's recent drug and alcohol use, they cannot take pt on at this time. CAMDEN Salcedo
--- NOTE | 2019-12-26 12:00 | CASEMGMT ---
[facility] PHONE CALL DC DATE: 12.25.2019 DC Disposition: Home Diagnosis on Discharge: DKA LACE/STRATA: strata 4 Attempted call to phone listed. Mailbox is full and no answer. Gallito MARTINEZ RN ACM
== END 2019-12-25 14:00 | disposition home or self-care (01) | DRG 638 ==
LOC: ED 14:04 → ICU 16:22
PROVIDERS: Admitting Provider Internal Medicine; Emergency Provider Emergency Medicine; PCP Internal Medicine; Visit Provider Family Medicine
DX: E10.10 Type 1 diabetes mellitus with ketoacidosis without coma (principal); N17.9 Acute kidney failure, unspecified; I42.0 Dilated cardiomyopathy; I42.6 Alcoholic cardiomyopathy; E10.649 Type 1 diabetes mellitus with hypoglycemia without coma; E87.6 Hypokalemia; E86.0 Dehydration; Z79.4 Long term (current) use of insulin; I25.2 Old myocardial infarction; G40.909 Epilepsy, unspecified, not intractable, without status epilepticus; F17.210 Nicotine dependence, cigarettes, uncomplicated; I25.10 Atherosclerotic heart disease of native coronary artery without angina pectoris; I10 Essential (primary) hypertension; Z79.82 Long term (current) use of aspirin; E78.5 Hyperlipidemia, unspecified; F32.9 Major depressive disorder, single episode, unspecified; F41.9 Anxiety disorder, unspecified; K21.9 Gastro-esophageal reflux disease without esophagitis; Z79.899 Other long term (current) drug therapy; Z82.49 Family history of ischemic heart disease and other diseases of the circulatory system; Z83.3 Family history of diabetes mellitus; F10.20 Alcohol dependence, uncomplicated; Y90.9 Presence of alcohol in blood, level not specified
CPT/HCPCS: 80048; 80076; 80307; 80320; 81001; 82009; 82962; 83605; 83735; 84100; 85025; 87633; 99251; 99285; 99406; J7030; J7050; A4216; G0463; G0480; J2405; J7799

== ENCOUNTER 2019-12-27 22:00 | Emergency (ER) | payer MEDICARE, MEDICAID, SELFPAY ==
[2019-12-24 17:11] VITALS: BMI 20.2
[2019-12-27 22:01] VITALS: BP 91/68; PULSE 98; RESP 18; TEMP 37; O2SAT 100; BMI 19.6
--- NOTE | 2019-12-27 22:14 | EKG12_ITS ---
Test Reason : DYSRHYTHMIA Blood Pressure : / mmHG Vent. Rate : 087 BPM Atrial Rate : 087 BPM P-R Int : 130 ms QRS Dur : 092 ms QT Int : 370 ms P-R-T Axes : 058 050 061 degrees QTc Int : 445 ms Normal sinus rhythm Normal ECG Confirmed by JAIDEN GEORGE, SRAVAN ([id number]), video effects editor KRUNAL DOOLEY ([id number]) on 12/31/2019 7:45:31 AM Referred By: JOHN Confirmed By:SRAVAN HWANG MD
--- NOTE | 2019-12-27 22:21 | ED.DCSUM_ITS ---
History of Present Illness Chief Complaint: Hyperglycemia Detail of Chief Complaint: Altered mental status Informant: Patient, Family Onset: Days Context: Sudden Onset Timing: Intermittent Quality: High blood sugar with change in mental status Location: Lives at home with parents Current Severity: Moderate Maximum Severity: Moderate Worsened by: Uncertain Relieved by: Nothing per father Associated Symptoms: Thirst and decreased urine output Narrative: Patient is a 44-year-old male with history of traumatic brain injury, subdural hematoma, status post craniotomy April 2019. 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 He has had multiple visits and admissions this month for hyperglycemia and DKA. He states he is taken his insulin. Is had poor p.o. intake. He does complain of thirst. He reports decreased urine output. Father is concerned because he is not alert. He is limited. Prior similar symptoms: Yes Recent Illness/Hospitalization: Yes - Past Medical History (1) Altered mental status Status: Acute (2) DKA (diabetic ketoacidoses) Status: Acute (3) Alcoholic cardiomyopathy Status: Chronic (4) Anxiety and depression Status: Chronic (5) Diabetes type 1, uncontrolled Status: Chronic Comment: DKA w/ encephalopathy 03/2019 Past Medical History - Allergies and Home Meds Allergies/Adverse Reactions: Allergies zinc Allergy (Verified 12/27/19 22:04) Hives Primary Care Physician: Moni Cintron MD [Primary Care Provider] - Prior records reviewed: Yes Surgical History: noncontributory, - - Craniotomy with evacuation of intracranial hemorrhage Lives: With Family Smoking Status: Current every day smoker Alcohol: Sober Drugs: Marijuana - Family History Maternal Family History: Family History (Last Reviewed 10/31/19 @ 15:32 by Aris Nelson MD) Mother Arthritis Thyroid disorder Father Diabetes Grandfather Diabetes Hypertension High cholesterol Grandmother Diabetes High cholesterol Arthritis Family History: Reports: No pertinent history Paternal Family History: Family History (Last Reviewed 10/31/19 @ 15:32 by Aris Nelson MD) Mother Arthritis Thyroid disorder Father Diabetes Grandfather Diabetes Hypertension High cholesterol Grandmother Diabetes High cholesterol Arthritis Family History: Reports: No pertinent history Review of Systems General: Reports: Malaise. Denies: Chills, Fever Eyes: Denies: Visual changes - bilaterally, Blurred Vision - bilaterally ENT: Denies: Rhinorrhea, Sore throat Cardiovascular: Denies: Chest pain, Palpitations Respiratory: Denies: Dyspnea, Cough, Dyspnea on exertion Gastrointestinal: Reports: Abdominal pain, Nausea, Vomiting. Denies: Diarrhea, Constipation, Melena, Hematochezia Genitourinary: Denies: Dysuria, Hematuria, Frequency Musculoskeletal: Denies: Myalgias, Arthralgias, Neck pain, Back pain, Swelling, Extremity Pain, -, - Skin: Denies: Rash, Wounds Neurological: Reports: Weakness Psych: Reports: Depression, Anxiety Hematologic: Denies: Easy bruising, Easy bleeding Physical Exam Vital Signs/Narrative: Vital Signs Temp Pulse Resp BP Pulse Ox 12/27/19 22:01 98.6 F 98 18 91/68 100 Inital Vital Signs reviewed: Yes General: Well developed, Cachectic, - - Mentation is slow and patient appears ill. He is not well groomed and has significant body odor Head: Normocephalic, Atraumatic Eyes: Perrl, EOMI. Negative for: Pale conjunctiva, Scleral icterus ENT: No rhinorrhea, TM's clear, Dry mucous membranes. Negative for: Nasal congestion, Sinus tenderness Neck: Supple, Nontender, No lymphadenopathy, No JVD Cardiovascular: Regular rate, Regular rhythm, No murmurs, Normal S1, Normal S2 Respiratory: No distress, CTA bilaterally, Chest nontender Abdomen: Soft, Nondistended, Normal bowel sounds, No masses, Tender, Hypoactive bowel sounds. Negative for: Guarding, Rebound tenderness, Hepatomegaly, Splenomegaly, Pulsatile mass Rectal: Deferred Back: Nontender, Normal Inspection Extremities: Nontender, No edema Skin: No rash, No Trauma, Pallor. Negative for: Cyanosis, Diaphoresis, Jaundice Neurological: Cranial nerves II-XII grossly intact, Normal Strength, Normal Sensation, Normal DTR. Negative for: Alert Psychological: - - Affect is flat Diagnostic/Tx/Re-eval Laboratory Results 12/27/19 12/27/19 12/27/19 22:30 22:30 22:30 WBC 6.8 RBC 4.05 L Hgb 12.6 L Hct 36.8 L MCV 90.9 MCH 31.1 MCHC 34.2 RDW Std Deviation 47.3 H RDW Coeff of Omayra 14.5 Plt Count 330 MPV 9.3 Immature Gran % (Auto) 0.300 Neut % (Auto) 53.7 Lymph % (Auto) 36.6 [place] % (Auto) 7.5 Eos % (Auto) 1.5 Baso % (Auto) 0.4 Absolute Neuts (auto) 3.7 Absolute Lymphs (auto) 2.49 Nucleated RBC % 0 Sodium 132 L Potassium 4.3 Chloride 101 Carbon Dioxide 17.0 L Anion Gap 14 BUN 14 Creatinine 1.06 Estim Creat Clear Calc 83.59 Est GFR (MDRD) Af Amer 98 Est GFR (MDRD) Non-Af 81 BUN/Creatinine Ratio 13.2 Glucose 151 H Calcium 8.7 Acetone Level LARGE H POC Glucose 12/27/19 22:42 WBC RBC Hgb Hct MCV MCH MCHC RDW Std Deviation RDW Coeff of Omayra Plt Count MPV Immature Gran % (Auto) Neut % (Auto) Lymph % (Auto) [place] % (Auto) Eos % (Auto) Baso % (Auto) Absolute Neuts (auto) Absolute Lymphs (auto) Nucleated RBC % Sodium Potassium Chloride Carbon Dioxide Anion Gap BUN Creatinine Estim Creat Clear Calc Est GFR (MDRD) Af Amer Est GFR (MDRD) Non-Af BUN/Creatinine Ratio Glucose Calcium Acetone Level POC Glucose 156 H CBC is unremarkable. Electrolyte panel is marked for a CO2 of 17 with anion gap of 14. Blood sugar is 156. Serum acetone is large. This in all likelihood represents a starvation ketosis. Patient treated his hyperglycemia with insulin prior to arrival. Since he clinically appears dehydrated, he will receive normal saline until he urinates. Father has been instructed he needs to eat. - Rhythm Strip Rhythm Strip: Sinus Rhythm Rate: 102 Ectopy: None - EKG Initial EKG Interpretation: Sinus Rhythm - This rhythm with a ventricular rate 87. [place] interval is 130 ms. QRS duration 92 ms. QT duration 370 ms. [place] is normal. The EKG is normal. - Medical Decision Making Blood sugar is greater than 400. In light of his multiple admissions for DKA and hyperglycemia DKA order set was initiated. He received 1 L of normal saline. He will receive Zofran for his reported nausea and vomiting. And father were told results. Father states he took 40 units of insulin prior to coming to the emergency department. He does not have an increased anion gap. He is ketotic. This may be secondary to mild DKA and or starvation ketosis since he has had nothing to eat in the last 24 hours. ED Disposition - Plan for ED Patient: Disposition: Home or Assisted Living Diagnosis: Hyperglycemia due to type 1 diabetes mellitus, Ketosis, Moderate dehydration, Sinus tachycardia seen on conveyor monitor Instructions: ED Diabetic Hyperglycemia Referrals: Moni Cintron MD [Primary Care Provider] - 3-5 Days
[2019-12-27] MEDS: 0.9% Normal Saline 1,000 ML 999 ML IV (22:42)
[2019-12-27] MEDS: Ondansetron 4 MG/2 ML Vial IV (22:42)
[2019-12-27 22:44] LABS: Absolute Lymphocyte Count 2.49 X10^3/uL (0.83-4.51); Absolute Neutrophil Count 3.7 X10^3/uL (2.0-7.7); Basophil# 0.03 X10^3/uL; Basophil% 0.4 % (0-1); Eosinophils% 1.5 % (0-5); Hematocrit 36.8 % (40-54); Hemoglobin 12.6 g/dL (13.0-16.5); Lymphocyte # 2.49 X10^3/ul (4.0); Lymphocyte % 36.6 % (19-41); Mean Corp Hgb Conc 34.2 g/dL (32-36); Mean Corpuscular Hgb 31.1 pg (27.0-32.0); Mean Corpuscular Volume 90.9 fL (80-94); Mean Platelet Vol. 9.3 fl (6.2-12.0); Monocyte# 0.51 X10^3/uL; Monocyte% 7.5 % (0-10); NRBC Flagged by Analyzer 0 % (0-5); Neutrophil # 3.65 X10^3/uL (2.7-7.7); Neutrophil % 53.7 % (47-70); Platelet Count 330 K/mm3 (150-450); RBC Distribution Width CV 14.5 % (11.6-14.6); RBC Distribution Width SD 47.3 fl (35.1-43.9); Red Blood Count 4.05 M/mm3 (4.6-6.2); White Blood Count 6.8 K/mm3 (4.4-11.0)
[2019-12-27 22:46] LABS: Bedside Glucose 156 mg/dL (70-110)
[2019-12-27 22:59] LABS: Anion Gap 14 (5-15); BUN 14 mg/dL (7-18); BUN/Creat Ratio 13.2 RATIO (10-20); Calcium,Total 8.7 mg/dL (8.5-10.1); Chloride 101 mmol/L (98-107); Creatinine, Serum 1.06 mg/dL (0.70-1.30); EST Glomerular Filtration Rate 81 mL/min (>60); Est Glom Filt Rate - Afr Amer 98 mL/min (>60); Estimated Creatinine Clearance 83.59 ml/min; Glucose 151 mg/dL (74-106); Potassium 4.3 mmol/L (3.5-5.1); Sodium Level 132 mmol/L (136-145)
[2019-12-27 23:35] VITALS: BP 102/59; PULSE 84; RESP 16; O2SAT 100
[2019-12-27 23:50] LABS: Bacteria 0 SEEN /hpf (None Seen); Red Blood Cells-Urine 0 SEEN /hpf (0-5)
[2019-12-27 23:57] LABS: Color, Urine Yellow (Yellow); Glucose, Dipstick 1000 mg/dl (Normal); Leukocyte Esterase-Dipstick Negative /ul (Negative); Nitrite-Dipstick Negative (Negative); Occult Blood-Urine Negative /ul (Negative); Protein-Dipstick 30 mg/dl (Negative); Specific Gravity, Urine 1.025 (1.002-1.030); Urine Bilirubin Dipstick Negative (Negative); Urine Clarity Clear (Clear); Urine Urobilinogen Normal (Normal)
[2019-12-28 00:32] LABS: Ketone-Dipstick 150 mg/dl (Negative)
[2019-12-28 00:39] LABS: Squamous Epithelial Cells - UA 0-5 SEEN /hpf (0-5)
[2019-12-28 00:40] LABS: Fine Granular Cast- Urine 0-5 SEEN /lpf (0-5)
[2019-12-28 00:44] LABS: White Blood Cells 0-5 SEEN /hpf (0-5)
[2019-12-28 00:45] LABS: Mucous, Urine RARE /hpf (<or=2+)
[2019-12-28] MEDS: 0.9% Normal Saline 1,000 ML 1000 ML IV (01:00)
[2019-12-28 01:07] LABS: Anion Gap 18 (5-15); BUN 13 mg/dL (7-18); BUN/Creat Ratio 12.9 RATIO (10-20); Calcium,Total 8.1 mg/dL (8.5-10.1); Chloride 102 mmol/L (98-107); Creatinine, Serum 1.01 mg/dL (0.70-1.30); EST Glomerular Filtration Rate 85 mL/min (>60); Est Glom Filt Rate - Afr Amer 103 mL/min (>60); Estimated Creatinine Clearance 87.73 ml/min; Glucose 208 mg/dL (74-106); Potassium 4.1 mmol/L (3.5-5.1); Sodium Level 133 mmol/L (136-145)
[2019-12-28 01:24] VITALS: BP 102/59; PULSE 84; RESP 16; O2SAT 100
== END 2019-12-28 02:35 | disposition home or self-care (01) ==
PROVIDERS: Emergency Provider Emergency Medicine; PCP Internal Medicine
DX: E10.10 Type 1 diabetes mellitus with ketoacidosis without coma (principal); E86.0 Dehydration; R00.0 Tachycardia, unspecified; Z79.4 Long term (current) use of insulin; Z82.49 Family history of ischemic heart disease and other diseases of the circulatory system; Z87.820 Personal history of traumatic brain injury; F41.9 Anxiety disorder, unspecified; F32.9 Major depressive disorder, single episode, unspecified; I42.6 Alcoholic cardiomyopathy; F17.200 Nicotine dependence, unspecified, uncomplicated
CPT/HCPCS: 80048; 81001; 82009; 82962; 85025; 93005; 99284; J2405

== ENCOUNTER 2019-12-28 11:09 | Inpatient (IN) | payer MEDICARE, MEDICAID, SELFPAY ==
[2019-12-27 22:01] VITALS: BMI 19.6
[2019-12-28] VITALS (16 sets, daily range): BP systolic 90–127; BP diastolic 44–67; PULSE 80–120; RESP 12–23; TEMP 36.4–36.7; O2SAT 98–100; BMI 19.6; BMI 18.6
--- NOTE | 2019-12-28 11:41 | EKG12_ITS ---
Test Reason : Blood Pressure : / mmHG Vent. Rate : 102 BPM Atrial Rate : 102 BPM P-R Int : 120 ms QRS Dur : 098 ms QT Int : 372 ms P-R-T Axes : 063 023 063 degrees QTc Int : 484 ms Sinus tachycardia Otherwise normal ECG Confirmed by GOOD GEORGE, RADHA ([id number]), index editor JD BEARDEN ([id number]) on 12/31/2019 8:30:13 AM Referred By: KYM Confirmed By:RADHA FUNK MD
--- NOTE | 2019-12-28 11:43 | ED.VIS.GEN ---
History of Present Illness <Rohan Rizvi - Last Filed: 12/28/19 16:06> Informant: Patient, Family Onset: Yesterday Context: Gradual Onset Timing: Continuous Quality: nausea Location: epigastric Current Severity: Severe Maximum Severity: Severe Worsened by: food Relieved by: nothing Associated Symptoms: nausea, vomiting. hyperglycemia Narrative: 44-year-old male insulin-dependent diabetic presents to the emergency department with elevated blood sugar as well as nausea and vomiting. Patient was actually seen here last evening for similar symptoms and discharged home. At that time his blood sugar was normal but this morning his mom who he lives with stated it was greater than 500. He was then given 30 units of insulin after this and they have brought him to the emergency department. He has no headache and no falls traumas or injuries. He is unable to keep any food or fluids down. He denies diarrhea or fevers. Denies chest pain shortness of breath cough congestion myalgias or sore throat. He denies any lightheadedness or dizziness. Prior similar symptoms: Yes Recent Illness/Hospitalization: Yes <Jorgito Serna - Last Filed: 12/28/19 16:13> Chief Complaint: Abd Pain Past Medical History - Family History Maternal Family History: Family History (Last Reviewed 10/31/19 @ 15:32 by Aris Nelson MD) Mother Arthritis Thyroid disorder Father Diabetes Grandfather Diabetes Hypertension High cholesterol Grandmother Diabetes High cholesterol Arthritis Paternal Family History: Family History (Last Reviewed 10/31/19 @ 15:32 by Aris Nelson MD) Mother Arthritis Thyroid disorder Father Diabetes Grandfather Diabetes Hypertension High cholesterol Grandmother Diabetes High cholesterol Arthritis <Rohan Rizvi - Last Filed: 12/28/19 16:06> Surgical History: noncontributory, - - Craniotomy with evacuation of intracranial hemorrhage Smoking Status: Current every day smoker - Family History Maternal Family History: Family History (Last Reviewed 10/31/19 @ 15:32 by Aris Nelson MD) Mother Arthritis Thyroid disorder Father Diabetes Grandfather Diabetes Hypertension High cholesterol Grandmother Diabetes High cholesterol Arthritis Family History: Reports: No pertinent history Paternal Family History: Family History (Last Reviewed 10/31/19 @ 15:32 by Aris Nelson MD) Mother Arthritis Thyroid disorder Father Diabetes Grandfather Diabetes Hypertension High cholesterol Grandmother Diabetes High cholesterol Arthritis Family History: Reports: No pertinent history <Jorgito Serna - Last Filed: 12/28/19 16:13> - Allergies and Home Meds Allergies/Adverse Reactions: Allergies zinc Allergy (Verified 12/28/19 11:10) Hives Primary Care Physician: Moni Cintron MD [Primary Care Provider] - Review of Systems All systems negative except as indicated General: Reports: Malaise. Denies: Chills, Fever Eyes: Denies: Visual changes - bilaterally, Blurred Vision - bilaterally, Diplopia ENT: Denies: Rhinorrhea, Sore throat Cardiovascular: Denies: Chest pain, Palpitations, Heart racing Respiratory: Denies: Dyspnea, Cough, Sputum, Dyspnea on exertion Gastrointestinal: Reports: Nausea, Vomiting. Denies: Abdominal pain, Diarrhea, Constipation, Melena, Hematochezia Genitourinary: Denies: Dysuria, Hematuria, Frequency Musculoskeletal: Denies: Myalgias, Arthralgias, Back pain Skin: Denies: Rash, Abscess, Abrasions, Wounds Neurological: Denies: Headache, Weakness, Parasthesia, Numbness <Jorgito Serna - Last Filed: 12/28/19 16:13> Physical Exam Vital Signs/Narrative: Vital Signs Pulse Resp BP Pulse Ox 12/28/19 14:31 84 16 104/64 98 <Rohan Rizvi - Last Filed: 12/28/19 16:06> Vital Signs/Narrative: Vital Signs Temp Pulse Resp BP Pulse Ox 12/28/19 11:10 97.7 F L 120 H 19 H 127/48 H 100 Inital Vital Signs reviewed: Yes General: Well nourished, Well developed, No Acute Distress Head: Normocephalic, Atraumatic Eyes: Perrl, EOMI ENT: Dry mucous membranes Neck: Supple, Nontender Cardiovascular: Regular rhythm, No murmurs, Tachycardia Respiratory: No distress, CTA bilaterally, Chest nontender Abdomen: Soft, Nontender, Nondistended, Normal bowel sounds Back: Nontender, Normal Inspection Extremities: Nontender, No edema Skin: Normal color, No rash Neurological: Alert, Oriented x3 Psychological: Normal affect <Jorgito Serna - Last Filed: 12/28/19 16:13> Diagnostic/Tx/Re-eval Laboratory Results 0212/28/19 12/28/19 13:14 14:10 14:10 WBC 17.0 H RBC 3.84 L Hgb 11.9 L Hct 35.1 L MCV 91.4 MCH 31.0 MCHC 33.9 RDW Std Deviation 47.1 H RDW Coeff of Omayra 14.4 Plt Count 318 MPV 9.4 Immature Gran % (Auto) 0.400 Neut % (Auto) 83.3 H Lymph % (Auto) 9.1 L [place] % (Auto) 7.0 Eos % (Auto) 0.0 Baso % (Auto) 0.2 Absolute Neuts (auto) 14.1 H Absolute Lymphs (auto) 1.55 Nucleated RBC % 0 Sodium 132 L Potassium 4.1 Chloride 106 Carbon Dioxide 10.0 L Anion Gap 16 H BUN 14 Creatinine 1.06 Estim Creat Clear Calc 83.59 Est GFR (MDRD) Af Amer 98 Est GFR (MDRD) Non-Af 81 BUN/Creatinine Ratio 13.2 Glucose 166 H Calcium 7.8 L Urine Color Urine Clarity Urine pH Ur Specific [place] Urine Protein Urine Glucose (UA) Urine Ketones Urine Occult Blood Urine Nitrite Urine Bilirubin Urine Urobilinogen Ur Leukocyte Esterase Urine RBC Urine WBC Ur Squamous Epith Cells Urine Bacteria Urine Mucus Acetone Level POC Glucose 156 H 12/28/19 12/28/19 12/28/19 14:10 14:25 14:25 WBC RBC Hgb Hct MCV MCH MCHC RDW Std Deviation RDW Coeff of Omayra Plt Count MPV Immature Gran % (Auto) Neut % (Auto) Lymph % (Auto) [place] % (Auto) Eos % (Auto) Baso % (Auto) Absolute Neuts (auto) Absolute Lymphs (auto) Nucleated RBC % Sodium Potassium Chloride Carbon Dioxide Anion Gap BUN Creatinine Estim Creat Clear Calc Est GFR (MDRD) Af Amer Est GFR (MDRD) Non-Af BUN/Creatinine Ratio Glucose Calcium Urine Color Yellow Urine Clarity Clear Urine pH 5.0 Ur Specific [place] 1.025 Urine Protein 30 H Urine Glucose (UA) 1000 H Urine Ketones 150 H Urine Occult Blood 10 H Urine Nitrite Negative Urine Bilirubin Negative Urine Urobilinogen Normal Ur Leukocyte Esterase Negative Urine RBC 0 SEEN Urine WBC 0 SEEN Ur Squamous Epith Cells 0 SEEN Urine Bacteria 0 SEEN Urine Mucus 0 SEEN Acetone Level MODERATE H POC Glucose 118 H - Rhythm Strip Rhythm Strip: Sinus Tach Rate: 115 Ectopy: None - EKG Initial EKG Interpretation: No Acute Injury Pattern, Sinus Tachycardia, - - No signs of hyperkalemia - Medical Decision Making Seen and evaluated independently and in conjunction with physician trust administrative assistant. Agree with notes above unless documented otherwise. Patient presents with vomiting since yesterday, denies feeling short of breath but his sugar was reading high this morning, so before coming here he took 40 units of his fast acting insulin. Here his blood sugars in the 150s. However, the rest of his work-up is consistent with DKA. This is despite already bringing his own blood sugar down to the 100s. Therefore, he will be started on insulin drip as well as D5 half-normal saline at the same time to keep him from becoming hypoglycemic, and admitted to the ICU for further management. <Rohan Rizvi - Last Filed: 12/28/19 16:06> ED Disposition <Rohan Rizvi - Last Filed: 12/28/19 16:06> <Jorgito Serna - Last Filed: 12/28/19 16:13> - Plan for ED Patient: Disposition: Acute Care Hospital [facility] Diagnosis: DKA (diabetic ketoacidoses) Referrals: Moni Cintron MD [Primary Care Provider] -
[2019-12-28 13:21] LABS: Bedside Glucose 156 mg/dL (70-110)
[2019-12-28] MEDS: 0.9% Normal Saline 1,000 ML 999 ML IV ×2 (13:22→14:28)
[2019-12-28 14:30] LABS: Anion Gap 16 (5-15); BUN 14 mg/dL (7-18); BUN/Creat Ratio 13.2 RATIO (10-20); Calcium,Total 7.8 mg/dL (8.5-10.1); Chloride 106 mmol/L (98-107); Creatinine, Serum 1.06 mg/dL (0.70-1.30); EST Glomerular Filtration Rate 81 mL/min (>60); Est Glom Filt Rate - Afr Amer 98 mL/min (>60); Estimated Creatinine Clearance 83.59 ml/min; Glucose 166 mg/dL (74-106); Potassium 4.1 mmol/L (3.5-5.1); Sodium Level 132 mmol/L (136-145)
[2019-12-28 14:31] LABS: Bedside Glucose 118 mg/dL (70-110)
[2019-12-28 14:31] LABS: Absolute Lymphocyte Count 1.55 X10^3/uL (0.83-4.51); Absolute Neutrophil Count 14.1 X10^3/uL (2.0-7.7); Basophil# 0.03 X10^3/uL; Basophil% 0.2 % (0-1); Hematocrit 35.1 % (40-54); Hemoglobin 11.9 g/dL (13.0-16.5); Lymphocyte # 1.55 X10^3/ul (4.0); Lymphocyte % 9.1 % (19-41); Mean Corp Hgb Conc 33.9 g/dL (32-36); Mean Corpuscular Volume 91.4 fL (80-94); Mean Platelet Vol. 9.4 fl (6.2-12.0); Monocyte# 1.18 X10^3/uL; NRBC Flagged by Analyzer 0 % (0-5); Neutrophil # 14.12 X10^3/uL (2.7-7.7); Neutrophil % 83.3 % (47-70); Platelet Count 318 K/mm3 (150-450); RBC Distribution Width CV 14.4 % (11.6-14.6); RBC Distribution Width SD 47.1 fl (35.1-43.9); Red Blood Count 3.84 M/mm3 (4.6-6.2)
[2019-12-28 14:35] LABS: Bacteria 0 SEEN /hpf (None Seen); Mucous, Urine 0 SEEN /hpf (<or=2+); Red Blood Cells-Urine 0 SEEN /hpf (0-5); Squamous Epithelial Cells - UA 0 SEEN /hpf (0-5); White Blood Cells 0 SEEN /hpf (0-5)
[2019-12-28 14:42] LABS: Color, Urine Yellow (Yellow); Glucose, Dipstick 1000 mg/dl (Normal); Leukocyte Esterase-Dipstick Negative /ul (Negative); Nitrite-Dipstick Negative (Negative); Occult Blood-Urine 10 /ul (Negative); Protein-Dipstick 30 mg/dl (Negative); Specific Gravity, Urine 1.025 (1.002-1.030); Urine Bilirubin Dipstick Negative (Negative); Urine Clarity Clear (Clear); Urine Urobilinogen Normal (Normal)
[2019-12-28 14:44] LABS: Ketone-Dipstick 150 mg/dl (Negative)
--- NOTE | 2019-12-28 16:21 | PN_ITS ---
Subjective: The patient is a 44-year-old male who presents to the emergency department at [facility] on 12/28/2019 complaining of abdominal pain, nausea/vomiting and hyperglycemia. He was seen in the emergency room last evening for the same thing. His anion gap was increased at that time as well but his blood sugar was 156 and he had taken insulin prior to coming to the emergency room. He admitted to not having eaten for at least 24 hours. He was discharged because the acidosis was presumed to be secondary to starvation ketosis. He was just recently discharged from the hospital on 12/24/2019 after being admitted for DKA. This is his fifth admission in the past month alone. Past medical history is significant for anxiety/depression, tobacco dependence, type 1 diabetes mellitus, alcoholic cardiomyopathy and nicotine dependence. He has been known to have alcohol withdrawal seizures in the past. He had a subdural hematoma in August 2019 was transferred to [facility] for clot evacuation/craniotomy. He had prolonged seizures during that admission and was placed on maintenance Keppra. Vital signs of presentation to the emergency room were temperature 97.7, pulse rate 120, blood pressure 127/48, respiratory rate 19 and he is 100% saturated on room air. CBC shows an elevated white blood cell count at 17 with 83% neutrophils. Hemoglobin is 11.9 which is within his baseline. Platelets are within normal limits. Sodium is low at 132 and the anion gap is increased at 16. BUN is 14 with a creatinine of 1.06. His glucose is 166 and calcium is low at 7.8. There is no albumin in the lab. Urine specific gravity is increased to 1.025 and has 0 white blood cells per high-power field. He is being admitted for the fifth time this month alone for DKA. - Physical Exam Vitals/I&O's: Vital Signs Temp Pulse Resp BP Pulse Ox 97.7 F L 84 16 104/64 98 12/28/19 11:10 12/28/19 14:31 12/28/19 14:31 12/28/19 14:31 12/28/19 14:31 Oxygen Delivery Method Room Air Weight: 145 lb Body Mass Index (BMI) 19.6 Finger Stick Blood Glucose 118 Intake and Output for Last 24 Hours 12/26/19 12/27/19 12/28/19 23:59 23:59 23:59 Intake Total 1000 / 1000 Balance 1000 / 1000 General: Alert, No apparent distress HEENT: Atraumatic, PERRLA, EOMI Oral: Moist Mucosa Neck: Supple, No Nodes, Trachea Midline Lungs: Clear to auscultation, No rhonchi, No wheeze, No rales Cardiovascular: Regular Rhythm, Normal S1, Normal S2, No murmurs, No Gallop, Tachycardic Abdomen: Bowel Sounds Present, Soft, Non-Distended, - - No guarding with palpation Extremities: No clubbing, No cyanosis, No edema Skin: No rashes, No breakdown Musculoskeletal: No Tenderness to Palpation of Joints or Extremities Neurological: Cranial nerves II-XII grossly intact, Neuro grossly intact, - - He speaks very slowly and deliberately and I suspect he has some kind of developmental delay. Psych/Mental Status: - - He has very poor insight into his disease and is not taking responsibility for himself. Laboratory Results 12/28/19 13:14: POC Glucose 156 H 12/28/19 14:10: WBC 17.0 H, RBC 3.84 L, Hgb 11.9 L, Hct 35.1 L, MCV 91.4, MCH 31.0, MCHC 33.9, RDW Std Deviation 47.1 H, RDW Coeff of Omayra 14.4, Plt Count 318, MPV 9.4, Immature Gran % (Auto) 0.400, Neut % (Auto) 83.3 H, Lymph % (Auto) 9.1 L, [place] % (Auto) 7.0, Eos % (Auto) 0.0, Baso % (Auto) 0.2, Absolute Neuts (auto) 14.1 H, Absolute Lymphs (auto) 1.55, Nucleated RBC % 0 12/28/19 14:10: Sodium 132 L, Potassium 4.1, Chloride 106, Carbon Dioxide 10.0 L , Anion Gap 16 H, BUN 14, Creatinine 1.06, Estim Creat Clear Calc 83.59, Est GFR (MDRD) Af Amer 98, Est GFR (MDRD) Non-Af 81, BUN/Creatinine Ratio 13.2, Glucose 166 H, Calcium 7.8 L 12/28/19 14:10: Acetone Level MODERATE H 12/28/19 14:25: Urine Color Yellow, Urine Clarity Clear, Urine pH 5.0, Ur Specific [place] 1.025, Urine Protein 30 H, Urine Glucose (UA) 1000 H, Urine Ketones 150 H, Urine Occult Blood 10 H, Urine Nitrite Negative, Urine Bilirubin Negative, Urine Urobilinogen Normal, Ur Leukocyte Esterase Negative, Urine RBC 0 SEEN, Urine WBC 0 SEEN, Ur Squamous Epith Cells 0 SEEN, Urine Bacteria 0 SEEN, Urine Mucus 0 SEEN 12/28/19 14:25: POC Glucose 118 H Current Medications Insulin Human Lispro 100 unit/ (Sodium Chloride) 100 mls @ 6.577 mls/hr IV .[id number] [facility]; Protocol Dextrose/Sodium Chloride () 1,000 mls @ 200 mls/hr IV .Q5H [facility] Medical Necessity - Tobacco Use Smoking Status: Current every day smoker Assessment/Plan All Active Problems (Last Reviewed 10/31/19 @ 15:32 by Aris Nelson MD) Hyperglycemia due to type 1 diabetes mellitus (Acute) Ketosis (Acute) Moderate dehydration (Acute) 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
[2019-12-28 16:35] LABS: Bedside Glucose 76 mg/dL (70-110)
--- NOTE | 2019-12-28 16:50 | HP.PCM_ITS ---
Problem List (1) Moderate dehydration Status: Acute (2) Dehydration Status: Acute (3) Acute kidney injury Status: Acute (4) Anxiety and depression Status: Chronic (5) Tobacco dependence Status: Chronic (6) DKA (diabetic ketoacidoses) Status: Acute Qualifiers: Diabetes mellitus type: type 1 Diabetes mellitus complication detail: without coma Qualified Code(s): E10.10 - Type 1 diabetes mellitus with ketoacidosis without coma (7) Diabetes type 1, uncontrolled Status: Chronic Comment: DKA w/ encephalopathy 03/2019 (8) Alcoholic cardiomyopathy Status: Chronic (9) Nicotine dependence Status: Chronic History of Present Illness Date of Admission: 12/28/19 Chief Complaint: high blood sugar The patient is a 44-year-old male who presents to the emergency department at [facility] on 12/28/2019 complaining of abdominal pain, nausea/vomiting and hyperglycemia. He was seen in the emergency room last evening for the same thing. His anion gap was increased at that time as well but his blood sugar was 156 and he had taken insulin prior to coming to the emergency room. He admitted to not having eaten for at least 24 hours. He was discharged because the acidosis was presumed to be secondary to starvation ketosis. He was just recently discharged from the hospital on 12/24/2019 after being admitted for DKA. This is his fifth admission in the past month alone. Past medical history is significant for anxiety/depression, tobacco dependence, type 1 diabetes mellitus, alcoholic cardiomyopathy and nicotine dependence. He has been known to have alcohol withdrawal seizures in the past. He had a subdural hematoma in August 2019 was transferred to [facility] for clot evacuation/craniotomy. He had prolonged seizures during that admission and was placed on maintenance Keppra. Vital signs of presentation to the emergency room were temperature 97.7, pulse rate 120, blood pressure 127/48, respiratory rate 19 and he is 100% saturated on room air. CBC shows an elevated white blood cell count at 17 with 83% neutrophils. Hemoglobin is 11.9 which is within his baseline. Platelets are within normal limits. Sodium is low at 132 and the anion gap is increased at 16. BUN is 14 with a creatinine of 1.06. His glucose is 166 and calcium is low at 7.8. There is no albumin in the lab. Urine specific gravity is increased to 1.025 and has 0 white blood cells per high-power field. He is being admitted for the fifth time this month alone for DKA. Past Medical History Past Medical History (Chronic Problems): Chronic Problems (Last Reviewed 10/31/19 @ 15:32 by Aris Nelson MD) Anxiety and depression (Chronic) Tobacco dependence (Chronic) Diabetes type 1, uncontrolled (Chronic) DKA w/ encephalopathy 03/2019 Alcoholic cardiomyopathy (Chronic) Nicotine dependence (Chronic) Medical History: Medical History (Last Reviewed 12/28/19 @ 17:26 by Elvira Morillo DO) Diabetes type 1, uncontrolled (Chronic) E10.65 DKA w/ encephalopathy 03/2019 Alcoholic cardiomyopathy (Chronic) I42.6 Nicotine dependence (Chronic) F17.200 Diabetic ketoacidosis Onset Date: 03/2019 E11.10 High cholesterol E78.00 history of vitamin deficiency Acute renal failure N17.9 Alcohol abuse F10.10 Anxiety F41.9 Dental caries K02.9 Depression F32.9 Dilated cardiomyopathy I42.0 Elevated liver enzymes R74.8 H/O sepsis Z86.19 Hyponatremia E87.1 Lactic acidosis E87.2 Left atrial enlargement I51.7 Mycoplasma pneumonia J15.7 NSVT (nonsustained ventricular tachycardia) I47.2 Neuropathy G62.9 Prolonged QT interval R94.31 Seizure disorder G40.909 Steatosis of liver K76.0 Thrombocytopenia D69.6 ELIZABETH (acute kidney injury) N17.9 Metabolic encephalopathy Onset Date: 03/2019 G93.41 Diabetes type 1, controlled E10.9 dx : 08/2001 last exacerbation : dka : 05/13 hypoglycemic episode : never er visit : 05/13 Allergies zinc Allergy (Verified 12/28/19 11:10) Hives Home Medications: Ambulatory Orders Medication Instructions Recorded Atorvastatin Calcium 20 mg PO DAILY 04/22/19 Melatonin 6 mg PO QHS 09/17/19 Thiamine HCl [Vitamin B-1] 100 mg PO DAILY 09/17/19 acamprosate 333 mg tablet,delayed 666 mg PO BID tab 10/31/19 release Albuterol Inhaler [Ventolin Hfa] 1 - 2 puff INHALATION Q4H PRN PRN 11/30/19 Lamotrigine [Lamictal] 200 mg PO BID 12/07/19 Potassium Chloride [K-Dur] 20 meq PO BIDCM #60 tab 01/13/20 Carvedilol 3.125 mg PO BID 12/13/19 Folic Acid 800 mcg PO DAILY 12/13/19 Insulin Glargine,Hum.rec.anlog 35 unit SUBCUT QHS 12/13/19 [Basaglar Kwikpen U-100] Insulin Lispro [Insulin Lispro See Protocol SUBCUT TID 12/13/19 Kwikpen U-100] Levetiracetam 1,500 mg PO BID 12/13/19 Lisinopril [Zestril] 2.5 mg PO DAILY 12/13/19 Mirtazapine 30 mg PO QHS 12/13/19 buPROPion XL [Wellbutrin Xl] 150 mg PO DAILY 12/24/19 Blood Sugar Diagnostic [Test 1 ea UD #100 strip 12/25/19 Strips] Famotidine [Pepcid] 20 mg PO BID #60 tab 12/25/19 Multivitamins,Ther W-Minerals 1 tab PO DAILYCM #30 tab 12/25/19 [Multivitamin With Minerals] Surgical History: Surgical History (Last Reviewed 12/28/19 @ 17:26 by Elvira Morillo DO) History of left heart catheterization Onset Date: 04/18/16 Z98.890 Hx of tonsillectomy Z98.890, Z90.89 Surgical History: noncontributory, - - Craniotomy with evacuation of intracranial hemorrhage Psychiatric History: No pertinent psych hx, Anxiety, Depression Lives: With Family Smoking Status: Current every day smoker Tobacco Use: Cigarettes Alcohol: Heavy - states he has not had a drink since New Years Drugs: - - denies - *Family History Maternal Family History: Family History (Last Reviewed 12/28/19 @ 17:28 by Elvira Morillo DO) Mother Arthritis Thyroid disorder Father Diabetes Grandfather Diabetes Hypertension High cholesterol Grandmother Diabetes High cholesterol Arthritis History Items: No pertinent history Paternal Family History: Family History (Last Reviewed 12/28/19 @ 17:28 by Elvira Morillo DO) Mother Arthritis Thyroid disorder Father Diabetes Grandfather Diabetes Hypertension High cholesterol Grandmother Diabetes High cholesterol Arthritis History Items: No pertinent history Review of Systems Constitutional: Reports: - - He has not been eqating because he does not like the cooking at home. Denies: Chills, Fever, Weight Change Eyes: Reports: Blurred vision HEENT: Denies: Head Aches, Sinus Congestion, Sinus Drainage Cardiovascular: Denies: Chest Pain, Palpitations Respiratory: Denies: Cough, Shortness of breath at rest, Sputum production Gastrointestinal: Reports: Nausea, Vomiting. Denies: Abdominal Pain, Diarrhea Genitourinary: Denies: Dysuria Musculoskeletal: Denies: Joint Pain, Joint Tenderness Skin: Denies: Rash, Wounds Neurological: Denies: Numbness, Tingling, Focal weakness Psychiatric: Denies: Anxiety, Depression, Homicidal Ideations, Suicidal Ideations Endocrine: Reports: Polydipsia, Polyuria Hematologic/ Lymphatic: Denies: Easy Bruising, Easy Bleeding, Hx of blood clot VTE Information - Inpt Only VTE Present on Admission: No VTE Mechan Device Prophylaxis: None VTE Pharm Prophylaxis ordered?: Yes Objective: General: Alert, No apparent distress HEENT: Atraumatic, PERRLA, EOMI Oral: Moist Mucosa Neck: Supple, No Nodes, Trachea Midline Lungs: Clear to auscultation, No rhonchi, No wheeze, No rales Cardiovascular: Regular Rhythm, Normal S1, Normal S2, No murmurs, No Gallop, Tachycardic Abdomen: Bowel Sounds Present, Soft, Non-Distended, - - No guarding with palpation Extremities: No clubbing, No cyanosis, No edema Skin: No rashes, No breakdown Musculoskeletal: No Tenderness to Palpation of Joints or Extremities Neurological: Cranial nerves II-XII grossly intact, Neuro grossly intact, - - He speaks very slowly and deliberately and I suspect he has some kind of developmental delay. Psych/Mental Status: - - He has very poor insight into his disease and is not taking responsibility for himself. - Physical Exam Vitals/I&O's: Vital Signs Temp Pulse Resp BP Pulse Ox 97.7 F L 84 16 95/64 98 12/28/19 11:10 12/28/19 14:31 12/28/19 14:31 12/28/19 16:33 12/28/19 14:31 Oxygen Delivery Method Room Air Weight: 145 lb Body Mass Index (BMI) 19.6 Finger Stick Blood Glucose 76 Intake and Output for Last 24 Hours 12/26/19 12/27/19 12/28/19 23:59 23:59 23:59 Intake Total 1000 / 1000 Balance 1000 / 1000 Laboratory Results 12/28/19 13:14: POC Glucose 156 H 12/28/19 14:10: WBC 17.0 H, RBC 3.84 L, Hgb 11.9 L, Hct 35.1 L, MCV 91.4, MCH 31.0, MCHC 33.9, RDW Std Deviation 47.1 H, RDW Coeff of Omayra 14.4, Plt Count 318, MPV 9.4, Immature Gran % (Auto) 0.400, Neut % (Auto) 83.3 H, Lymph % (Auto) 9.1 L, [place] % (Auto) 7.0, Eos % (Auto) 0.0, Baso % (Auto) 0.2, Absolute Neuts (auto) 14.1 H, Absolute Lymphs (auto) 1.55, Nucleated RBC % 0 12/28/19 14:10: Sodium 132 L, Potassium 4.1, Chloride 106, Carbon Dioxide 10.0 L , Anion Gap 16 H, BUN 14, Creatinine 1.06, Estim Creat Clear Calc 83.59, Est GFR (MDRD) Af Amer 98, Est GFR (MDRD) Non-Af 81, BUN/Creatinine Ratio 13.2, Glucose 166 H, Calcium 7.8 L 12/28/19 14:10: Acetone Level MODERATE H 12/28/19 14:25: Urine Color Yellow, Urine Clarity Clear, Urine pH 5.0, Ur Specific [place] 1.025, Urine Protein 30 H, Urine Glucose (UA) 1000 H, Urine Ketones 150 H, Urine Occult Blood 10 H, Urine Nitrite Negative, Urine Bilirubin Negative, Urine Urobilinogen Normal, Ur Leukocyte Esterase Negative, Urine RBC 0 SEEN, Urine WBC 0 SEEN, Ur Squamous Epith Cells 0 SEEN, Urine Bacteria 0 SEEN, Urine Mucus 0 SEEN 12/28/19 14:25: POC Glucose 118 H 12/28/19 16:29: POC Glucose 76 Current Medications Insulin Human Lispro 100 unit/ (Sodium Chloride) 100 mls @ 6.577 mls/hr IV .[id number] [facility]; Protocol Dextrose/Sodium Chloride () 1,000 mls @ 200 mls/hr IV .Q5H [facility] Assessment/Plan All Active Problems (Last Reviewed 10/31/19 @ 15:32 by Aris Nelson MD) Moderate dehydration (Acute) Dehydration (Acute) Acute kidney injury (Acute) DKA (diabetic ketoacidoses) (Acute) Impressions 1. DKA 2. dehydration 3. Hyponatremia 4. suspected developmental delay or TBI - I question whether he is competent to make decisions and he can not take care of himself. He lives with his mother and apparently he has a . This is his 5th admission to the hospital this month alone. His inability to take care of himself is escalating and resulting in more frequent admissions. I am not sure his mother and are able to adequately care for him either. Perhaps he needs to be placed in an ECF where he can be adequately cared for. Maybe he should be evaluated by a neurologist to assess his competency. 5. Hx of alcoholism and alcohol withdrawal seizures in the past 6. Hx of a SDH in August of this year. Admit to ICU DKA order set initiated. consult Speech therapy to assess cognition when the DKA has resolved and prior to discharge. Needs to have a [place] Cognitive Assessment MOCA Code Visit Inpatient E&M: 61181 Init Hosp L3
[2019-12-28] MEDS: Dextrose 50%-Water 25 GM/50 ML DISP.SYRIN IV (17:11)
[2019-12-28] MEDS: Dext 5%-0.45% NS 1,000 ML 200 ML IV ×2 (17:18→22:19)
[2019-12-28 17:46] LABS: Bedside Glucose 161 mg/dL (70-110)
[2019-12-28 18:06] LABS: Bedside Glucose 158 mg/dL (70-110)
[2019-12-28 18:20] LABS: Anion Gap 15 (5-15); BUN 12 mg/dL (7-18); BUN/Creat Ratio 12.4 RATIO (10-20); Calcium,Total 7.3 mg/dL (8.5-10.1); Chloride 105 mmol/L (98-107); Creatinine, Serum 0.96 mg/dL (0.70-1.30); EST Glomerular Filtration Rate 90 mL/min (>60); Est Glom Filt Rate - Afr Amer 109 mL/min (>60); Estimated Creatinine Clearance 87.29 ml/min; Glucose 159 mg/dL (74-106); Potassium 3.9 mmol/L (3.5-5.1); Sodium Level 132 mmol/L (136-145)
[2019-12-28 18:24] LABS: Amphetamine Urine VISTA NEGATIVE (<1000 ng/mL); Barbiturate Urine VISTA NEGATIVE (< 200 ng/mL); Benzodiazepine Urine VISTA NEGATIVE (< 200 ng/mL); Cocaine Urine VISTA NEGATIVE (< 300 ng/mL); Ecstacy Urine VISTA POSITIVE (< 500 ng/mL); Methadone Urine VISTA NEGATIVE (< 300 ng/mL); PCP Urine VISTA NEGATIVE (< 25 ng/mL); THC Urine VISTA NEGATIVE (< 50 ng/mL); Vista UDS pH Range 7
[2019-12-28 19:01] LABS: Alcohol, Blood (Medical)-Serum < 3.0 mg/dL
[2019-12-28 19:14] LABS: Magnesium 1.7 mg/dL (1.6-2.6)
[2019-12-28 19:26] LABS: Bedside Glucose 177 mg/dL (70-110)
[2019-12-28 20:10] LABS: Bedside Glucose 243 mg/dL (70-110)
[2019-12-28 21:15] LABS: Bedside Glucose 239 mg/dL (70-110)
[2019-12-28 22:20] LABS: Bedside Glucose 203 mg/dL (70-110)
[2019-12-28] MEDS: Carvedilol 3.125 MG TABLET PO (22:21)
[2019-12-28] MEDS: MELATONIN 3 MG TABLET 6 MG PO (22:21)
[2019-12-28] MEDS: levETIRAcetam 750 MG Tablet 1500 MG PO (22:21)
[2019-12-28] MEDS: Famotidine 20 MG Tablet PO (22:22)
[2019-12-28] MEDS: lamoTRIgine 100 MG Tablet 200 MG PO (22:22)
[2019-12-28] MEDS: Mirtazapine 30 MG Tablet PO (22:22)
[2019-12-28 22:39] LABS: Anion Gap 12 (5-15); BUN 10 mg/dL (7-18); BUN/Creat Ratio 9.9 RATIO (10-20); Calcium,Total 7.3 mg/dL (8.5-10.1); Chloride 104 mmol/L (98-107); Creatinine, Serum 1.01 mg/dL (0.70-1.30); EST Glomerular Filtration Rate 85 mL/min (>60); Est Glom Filt Rate - Afr Amer 103 mL/min (>60); Estimated Creatinine Clearance 82.97 ml/min; Glucose 206 mg/dL (74-106); Potassium 3.8 mmol/L (3.5-5.1); Sodium Level 130 mmol/L (136-145)
[2019-12-29] VITALS (17 sets, daily range): BP systolic 84–135; BP diastolic 39–98; PULSE 86–111; RESP 13–17; TEMP 36.4–37.1; O2SAT 99–100
[2019-12-29] MEDS: 0.9% Normal Saline 1,000 ML 150 ML IV (00:20)
[2019-12-29 01:36] LABS: Bedside Glucose 167 mg/dL (70-110)
[2019-12-29 04:36] LABS: Hematocrit 30.1 % (40-54); Hemoglobin 10.4 g/dL (13.0-16.5); Mean Corp Hgb Conc 34.6 g/dL (32-36); Mean Corpuscular Hgb 31.1 pg (27.0-32.0); Mean Corpuscular Volume 90.1 fL (80-94); Mean Platelet Vol. 9.1 fl (6.2-12.0); Platelet Count 284 K/mm3 (150-450); RBC Distribution Width CV 14.2 % (11.6-14.6); Red Blood Count 3.34 M/mm3 (4.6-6.2); White Blood Count 11.1 K/mm3 (4.4-11.0)
[2019-12-29 04:51] LABS: ALB/GLOB Ratio 1.1 RATIO (0.9-2.4); AST(SGOT) 10 U/L (15-37); Alanine Aminotransfer ALT/SGPT 19 U/L (16-61); Albumin, Serum 2.6 g/dL (3.2-5.0); Alkaline Phosphatase 64 U/L (45-117); Anion Gap 15 (5-15); BUN 8 mg/dL (7-18); BUN/Creat Ratio 8.5 RATIO (10-20); Calcium,Total 7.8 mg/dL (8.5-10.1); Chloride 104 mmol/L (98-107); Creatinine, Serum 0.94 mg/dL (0.70-1.30); EST Glomerular Filtration Rate 93 mL/min (>60); Est Glom Filt Rate - Afr Amer 112 mL/min (>60); Estimated Creatinine Clearance 89.15 ml/min; Globulin 2.3 g/dL (2.2-4.2); Glucose 256 mg/dL (74-106); Magnesium 1.6 mg/dL (1.6-2.6); Phosphorus 1.6 mg/dL (2.5-4.9); Protein, Total 4.9 g/dL (6.4-8.2); Sodium Level 132 mmol/L (136-145)
[2019-12-29] MEDS: Insulin Lispro 100 UNIT/ML INSULN.PEN SC ×2 (08:46→12:12)
[2019-12-29] MEDS: Famotidine 20 MG Tablet PO (08:47)
[2019-12-29] MEDS: Folic Acid 1 MG Tablet PO (08:48)
[2019-12-29] MEDS: Thiamine Hydrochloride 100 MG Tablet PO (08:48)
[2019-12-29] MEDS: lamoTRIgine 100 MG Tablet 200 MG PO (08:48)
[2019-12-29] MEDS: levETIRAcetam 750 MG Tablet 1500 MG PO (08:48)
[2019-12-29] MEDS: Enoxaparin 40 MG/0.4 ML Syringe SC (08:48)
[2019-12-29] MEDS: Carvedilol 3.125 MG TABLET PO (08:48)
[2019-12-29 09:00] LABS: Bedside Glucose 397 mg/dL (70-110)
[2019-12-29] MEDS: Acetaminophen 325 MG Tablet 650 MG PO (10:12)
[2019-12-29] MEDS: Insulin Lispro 100 UNIT/ML INSULN.PEN 20 UNIT SC (10:13)
--- NOTE | 2019-12-29 10:36 | DCINST_ITS ---
- Discharge Diagnoses Current Active Problems: (1) Acute DKA w/ Diabetes mellitus type I (2) History of EtOH Withdrawal (3) History of SDH w/ Suspected TBI, prior concerns for self-care with outpatient neurology referral with failure to follow-up (4) Dilated Cardiomyopathy, CAD (5) Hypertension (6) Hyperlipidemia (7) Seizure Disorder (8) Tobacco Abuse (9) Anxiety and Depression (10) GERD You will use the following diet at home:: Calorie/Carbohydrate Controlled (specify 1200, 1400, etc) - 1800 ADA/cardiac diet recommended. Your food should be the consistency of: Regular Your liquids should be the consistency of: Regular/Thin Discharge Activity: Return to Normal Activity May resume sexual activity in: No Restrictions Weight Bearing Status: Weight bearing as tolerated Call your doctor if you observe: Fever of 101 or Higher, Inability to urinate, Inability to have a bowel movement, Shortness of breath, Dizziness, Fainting spells, Chest pain, Uncontrolled pain Instructions: Hyperglycemia (High Blood Sugar), Hypoglycemia (Low Blood Sugar), What Is Type 2 Diabetes?, Using Injected Insulin, Types of Insulin, Healthy Meals for Diabetes Additional Instructions: We are concerned that you are unable to make appropriate healthy decisions regarding your diabetic care. We strongly recommend given your history of trauma to the head that you follow-up with Neurology for ongoing evaluation as noted which has been recommended in the past also. We believe you would benefit from close routine primary care and endocri nology follow-up. We have requested that case management/social work arrange home health care to assist in aggressive close home monitoring given your serial re-admissions secondary to failure of appropriate meal intake and insulin administration. Allergies/Adverse Reactions: Allergies zinc Allergy (Verified 12/28/19 11:10) Hives Medications to take at Discharge Atorvastatin Calcium 20 mg PO DAILY 04/22/19 Melatonin 6 mg PO QHS 09/17/19 Thiamine HCl [Vitamin B-1] 100 mg PO DAILY 09/17/19 acamprosate 333 mg tablet,delayed release 666 mg PO BID tab 10/31/19 Albuterol Inhaler [Ventolin Hfa] 1 - 2 puff INHALATION Q4H PRN PRN 11/30/19 Lamotrigine [Lamictal] 200 mg PO BID 12/07/19 Potassium Chloride [K-Dur] 20 meq PO BIDCM #60 tab 12/09/19 Carvedilol 3.125 mg PO BID 12/13/19 Folic Acid 800 mcg PO DAILY 12/13/19 Insulin Lispro [Insulin Lispro Kwikpen U-100] See Protocol SUBCUT TID 12/13/19 Levetiracetam 1,500 mg PO BID 12/13/19 Lisinopril [Zestril] 2.5 mg PO DAILY 12/13/19 Mirtazapine 30 mg PO QHS 12/13/19 buPROPion XL [Wellbutrin Xl] 150 mg PO DAILY 12/24/19 Blood Sugar Diagnostic [Test Strips] 1 ea UD #100 strip 12/25/19 Famotidine [Pepcid] 20 mg PO BID #60 tab 12/25/19 Multivitamins,Ther W-Minerals [Multivitamin With Minerals] 1 tab PO DAILYCM #30 tab 12/25/19 Insulin Glargine [Lantus SoloStar Pen] 25 units SUBCUT BID #1 pen 12/29/19 The following prescriptions were given: Insulin Glargine [Lantus SoloStar Pen] 25 units SUBCUT BID #1 pen Transmission Status: Pending to [facility]/pharmacy #[id number] Primary Care Physician: Moni Cintron MD [Primary Care Provider] - Please follow up with your Primary Care Physician in: Follow-up within 2-3 days given serial re-admissions, need for close f/u Test Results: Test results from this visit will be discussed in further detail at your follow- up appointment, if applicable. Please Follow Up With: Ivan Garner MD When: Follow-up for evaluation for concerns for TBI w/ history of SDH. Please Follow Up With: Aris Nelson MD When: Follow-up 1st open appointment to establish. Proposed Discharge Date: 12/29/19
--- NOTE | 2019-12-29 10:43 | PCM.DC.SUM ---
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, prior concerns for self-care with outpatient neurology referral with failure to follow-up (4) Dilated Cardiomyopathy, CAD (5) Hypertension (6) Hyperlipidemia (7) Seizure Disorder (8) Tobacco Abuse (9) Anxiety and Depression (10) GERD - Secondary Discharge Diagnosis Chronic Problems (Last Reviewed 12/28/19 @ 17:26 by Elvira Morillo DO) Anxiety and depression (Chronic) Tobacco dependence (Chronic) Diabetes type 1, uncontrolled (Chronic) DKA w/ encephalopathy 03/2019 Alcoholic cardiomyopathy (Chronic) Nicotine dependence (Chronic) Hospital Course and Treatment Operations: None Procedures: EKG Summary of Care Provided: The patient is a 44 y/o M w/ PMHx: Diabetes mellitus type I, CAD, Dilated Cardiomyopathy, Tobacco use, Seizure disorder, EtOH Abuse who was recently discharged on 12/15/19 for acute DKA, recently readmitted on 12/24/19 and discharged following DKA resolution who now again re-presented to the [facility] ED on 12/28/19 with recurrent abdominal pain, nausea/vomiting and hyperglycemia. Patient again, admitted to the ICU, maintained on insulin drip, transitioned to SC regimen once gap closed with alterations to his home insulin regimen with on going ISS with accu checks. ST evaluation given concern for patient history of SDH w/ TBI as etiology for poor self care which had been performed in the past with agreement of ~ 7 point reduction below what would be expected to make specifically financial decisions with again recommendation for Neurology follow-up with visit requested. Patient has had these set-up for him prior and never makes his appointments. Patient appearance less severe than prior, no concurrent ELIZABETH during current presentation. Discussed upon current discharge plan for CM/SW assist w/ home health care set-up to assist in aggressive close home monitoring given your serial re-admissions secondary to failure of appropriate meal intake and insulin. Strongly recommended also, aggressive as noted follow-up with Neurology with visit requested with new Neurologist starting locally 01/02/20 as well as potential visit with Dr. Nelson, Endocrinology with close routine PCP visits given these ongoing issues. From discussions with family prior also, family also not making healthy decisions for patient potentially. Declined SNF recommendation prior and ongoing. Given DKA resolution and per preference of patient will discharge to home with requested follow-up with Neurology, PCP and Endocrinology with home health aggressive care. Given patient clinically improved in a timeline far greater than expected from DKA will plan discharge to home as noted. DAY OF DISCHARGE PROGRESS NOTE: Subjective: Patient without acute event overnight per self and nursing report. Patient with closure of his anion gap and transition to subcu insulin, increased from prior with ongoing aggressive education. Patient notes that he is likely going to be moving to [facility] to be with his father. He states that there is a diabetic clinic there that he has been to prior and is eager to restart. Patient is amenable to home therapy especially for assistance with diabetic oral intake and medications. Discussed that case management would be notified and we would attempt to assist in any manner possible. Strongly encouraged follow-up if remains in the area with Dr. Nelson, Dr. shaan mitchell who is with neurology for assessment as concerns for reduced ability to appropriately care for self secondary to prior history of subdural hemorrhage and possible TBI although not severe appearing testing with ST upon evaluation during admission. Patient denies fever, chills, nausea, emesis, abdominal pain, chest pain or dyspnea. Patient agreeable to discharge to home with plan as noted. Patient will be discharged with follow-up with primary care physician recommended neurology as well as endocrinology follow-up if remains in the region. Did discuss with nursing staff and requested that message be left with patient's clinic he is mentioning in [facility] in case he does actually move. Objective: T 97.5, heart 96, BP 127/64, respiratory rate 17, 100% on room air. Physical Examination: General: awake, alert, oriented x 3 occluding person, place, year and recent events, remains cooperative, discussed self-care at length and suspected combination of inability to appropriate care for self and patient's apathy over self care, seated upright in the ICU bed, NAD, notes feeling improved. Skin: normal color, turgor, no icterus, cyanosis. HEENT: AT/NC, EOMI, PERRLA, improved MMM. Lungs: CTA bilaterally, moderate effort, moderate decrease BL bases, no rales, ronchi or wheezing; Heart: Improved regular rate and rhythm; no gallop, rub audible. Abdomen: soft, NTTP, ND, normal BS. Extremities: no cyanosis, clubbing, or edema. Neurological: patient awake, alert, oriented noted; cognitive function appears intact upon questioning, again ongoing suspected TBI but patient mentating appropriately, giving appropriate reactions to certain requested questioning and able to give a plan of care; pupils equally reactive to light and accomodation; cranial nerves II-XII grossly normal, moving all 4 extremities, strength improved, mildly global increase given recent acute presentation. Psychiatric: affect appears well eyes, interactive, talkative, no acute evidence of depressive or anxiety feelings. Assessment and Plan: Please see hospital summary above. - Physical Exam Vitals/I&O's: Vital Signs Temp Pulse Resp BP Pulse Ox 97.5 F L 96 17 127/64 H 100 12/29/19 08:00 12/29/19 08:00 12/29/19 08:00 12/29/19 08:00 12/29/19 08:00 Oxygen Delivery Method Room Air Weight: 139 lb 5.314 oz Body Mass Index (BMI) 18.6 Finger Stick Blood Glucose 167 Intake and Output for Last 24 Hours 12/27/19 12/28/19 12/29/19 23:59 23:59 23:59 Intake Total 3010.34 / 3136.94 93 / 2008.93 Output Total 600 / 600 1350 / 1350 Balance 2410.34 / 2536.94 659.93 / 659.93 Laboratory Results 12/28/19 13:14: POC Glucose 156 H 12/28/19 14:10: WBC 17.0 H, RBC 3.84 L, Hgb 11.9 L, Hct 35.1 L, MCV 91.4, MCH 31.0, MCHC 33.9, RDW Std Deviation 47.1 H, RDW Coeff of Omayra 14.4, Plt Count 318, MPV 9.4, Immature Gran % (Auto) 0.400, Neut % (Auto) 83.3 H, Lymph % (Auto) 9.1 L, Davis % (Auto) 7.0, Eos % (Auto) 0.0, Baso % (Auto) 0.2, Absolute Neuts (auto) 14.1 H, Absolute Lymphs (auto) 1.55, Nucleated RBC % 0 12/28/19 14:10: Sodium 132 L, Potassium 4.1, Chloride 106, Carbon Dioxide 10.0 L, Anion Gap 16 H, BUN 14, Creatinine 1.06, Estim Creat Clear Calc 83.59, Est GFR (MDRD) Af Amer 98, Est GFR (MDRD) Non-Af 81, BUN/Creatinine Ratio 13.2, Glucose 166 H, Calcium 7.8 L 12/28/19 14:10: Acetone Level MODERATE H 12/28/19 14:25: Urine Color Yellow, Urine Clarity Clear, Urine pH 5.0, Ur Specific [place] 1.025, Urine Protein 30 H, Urine Glucose (UA) 1000 H, Urine Ketones 150 H, Urine Occult Blood 10 H, Urine Nitrite Negative, Urine Bilirubin Negative, Urine Urobilinogen Normal, Ur Leukocyte Esterase Negative, Urine RBC 0 SEEN, Urine WBC 0 SEEN, Ur Squamous Epith Cells 0 SEEN, Urine Bacteria 0 SEEN, Urine Mucus 0 SEEN 12/28/19 14:25: POC Glucose 118 H 12/28/19 14:25: Urine Opiates Screen NEGATIVE, Urine Methadone Screen NEGATIVE, Ur Barbiturates Screen NEGATIVE, Ur Phencyclidine Scrn NEGATIVE, Ur Amphetamines Screen NEGATIVE, U Methamphetamin-MDMA POSITIVE H, U Benzodiazepines Scrn NEGATIVE, Urine Cocaine Screen NEGATIVE, U Cannabinoids Screen NEGATIVE, Ur Drug Screen Comment 12/28/19 16:29: POC Glucose 76 12/28/19 17:18: POC Glucose 161 H 12/28/19 17:54: POC Glucose 158 H 12/28/19 18:00: Ethyl Alcohol < 3.0 12/28/19 18:00: Magnesium 1.7 12/28/19 18:00: Sodium 132 L, Potassium 3.9, Chloride 105, Carbon Dioxide 12.0 L, Anion Gap 15, BUN 12, Creatinine 0.96, Estim Creat Clear Calc 87.29, Est GFR (MDRD) Af Amer 109, Est GFR (MDRD) Non-Af 90, BUN/Creatinine Ratio 12.4, Glucose 159 H, Calcium 7.3 L 12/28/19 19:18: POC Glucose 177 H 12/28/19 20:04: POC Glucose 243 H 12/28/19 21:03: POC Glucose 239 H 12/28/19 22:15: Sodium 130 L, Potassium 3.8, Chloride 104, Carbon Dioxide 14.0 L, Anion Gap 12, BUN 10, Creatinine 1.01, Estim Creat Clear Calc 82.97, Est GFR (MDRD) Af Amer 103, Est GFR (MDRD) Non-Af 85, BUN/Creatinine Ratio 9.9 L, Glucose 206 H, Calcium 7.3 L 12/28/19 22:15: POC Glucose 203 H 12/29/19 00:04: POC Glucose 167 H 12/29/19 04:25: WBC 11.1 H, RBC 3.34 L, Hgb 10.4 L, Hct 30.1 L, MCV 90.1, MCH 31.1, MCHC 34.6, RDW Std Deviation 46.0 H, RDW Coeff of Omayra 14.2, Plt Count 284, MPV 9.1 12/29/19 04:25: Sodium 132 L, Potassium 4.0, Chloride 104, Carbon Dioxide 13.0 L, Anion Gap 15, BUN 8, Creatinine 0.94, Estim Creat Clear Calc 89.15, Est GFR (MDRD) Af Amer 112, Est GFR (MDRD) Non-Af 93, BUN/Creatinine Ratio 8.5 L, Glucose 256 H, Calcium 7.8 L, Phosphorus 1.6 L, Magnesium 1.6, Total Bilirubin 0.50, AST 10 L, ALT 19, Alkaline Phosphatase 64, Total Protein 4.9 L, Albumin 2.6 L, Globulin 2.3, Albumin/Globulin Ratio 1.1 12/29/19 08:41: POC Glucose 397 H Current Medications Acetaminophen (Tylenol) 650 mg PO Q4H PRN PRN PRN Reason: fever/1-10 pain Last Admin: 12/29/19 10:12 Dose: 650 mg Documented by: Carvedilol (Coreg) 3.125 mg PO BID [facility] Last Admin: 12/29/19 08:48 Dose: 3.125 mg Documented by: Enoxaparin Sodium (Lovenox) 40 mg SC DAILY [facility] Last Admin: 12/29/19 08:48 Dose: 40 mg Documented by: Famotidine (Pepcid) 20 mg PO BID [facility] Last Admin: 12/29/19 08:47 Dose: 20 mg Documented by: Folic Acid (Folic Acid) 1 mg PO DAILY@0800 [facility] Last Admin: 12/29/19 08:48 Dose: 1 mg Documented by: Glucagon () 1 mg IM .X1 PRN PRN Reason: Hypoglycemia Dextrose (Dextrose 10%-Water) 250 mls @ 999 mls/hr IV .Q16M PRN; Protocol PRN Reason: HYPOGLYCEMIA Sodium Chloride () 250 mls @ 15 mls/hr IV .[id number] PRN PRN Reason: Saline Flush Sodium Chloride () 250 mls @ 15 mls/hr IV .[id number] PRN PRN Reason: Additional IVPB Infusion Sodium Chloride () 1,000 mls @ 150 mls/hr IV .Q6H40M [facility] Last Admin: 12/29/19 07:34 Dose: Not Given Documented by: Sodium Phosphate 21 mm/ Sodium (Chloride) 257 mls @ 84 mls/hr IV X1 ONE Stop: 12/29/19 13:48 Insulin Glargine (Lantus (Bk)) 25 units SC BID [facility] Insulin Human Lispro (Humalog Kwikpen ([facility])) 0 unit SC ACHS [facility]; Protocol Last Admin: 12/29/19 08:46 Dose: 14 u Documented by: Lamotrigine (Lamictal) 200 mg PO BID [facility] Last Admin: 12/29/19 08:48 Dose: 200 mg Documented by: Levetiracetam (Keppra Tablet) 1,500 mg PO BID [facility] Last Admin: 12/29/19 08:48 Dose: 1,500 mg Documented by: Melatonin (Melatonin) 6 mg PO QHS [facility] Last Admin: 12/28/19 22:21 Dose: 6 mg Documented by: Mirtazapine (Remeron) 30 mg PO QHS [facility] Last Admin: 12/28/19 22:22 Dose: 30 mg Documented by: Nicotine (Nicoderm Cq (Pbkc)) 21 mg TRANSDERM. DAILY [facility] Last Admin: 12/29/19 08:49 Dose: 21 mg Documented by: [facility] Admin: 12/29/19 08:47 Dose: 20 meq Documented by: Sodium Chloride () 10 - 40 ml IV UD PRN PRN Reason: SALINE FLUSH Thiamine HCl ([facility]itamin B1) [facility] Last Admin: 12/29/19 08:48 Dose: 100 mg Documented by: Discharge Activity: Return to Normal Activity May resume sexual activity in: No Restrictions Weight Bearing Status: Weight bearing as tolerated Call your doctor if you observe: Fever of 101 or Higher, Inability to urinate, Inability to have a bowel movement, Shortness of breath, Dizziness, Fainting spells, Chest pain, Uncontrolled pain Home Medications: Medications to take at Discharge Atorvastatin Calcium 20 mg PO DAILY 04/22/19 Melatonin 6 mg PO QHS 09/17/19 Thiamine HCl [Vitamin B-1] 100 mg PO DAILY 09/17/19 acamprosate 333 mg tablet,delayed release 666 mg PO BID tab 10/31/19 Albuterol Inhaler [Ventolin Hfa] 1 - 2 puff INHALATION Q4H PRN PRN 11/30/19 Lamotrigine [Lamictal] 200 mg PO BID 12/07/19 Potassium Chloride [K-Dur] 20 meq PO BIDCM #60 tab 12/09/19 Carvedilol 3.125 mg PO BID 12/13/19 Folic Acid 800 mcg PO DAILY 12/13/19 Insulin Lispro [Insulin Lispro Kwikpen U-100] See Protocol SUBCUT TID 12/13/19 Levetiracetam 1,500 mg PO BID 12/13/19 Lisinopril [Zestril] 2.5 mg PO DAILY 12/13/19 Mirtazapine 30 mg PO QHS 12/13/19 buPROPion XL [Wellbutrin Xl] 150 mg PO DAILY 12/24/19 Blood Sugar Diagnostic [Test Strips] 1 ea MC UD #100 strip 12/25/19 Famotidine [Pepcid] 20 mg PO BID #60 tab 12/25/19 Multivitamins,Ther W-Minerals [Multivitamin With Minerals] 1 tab PO DAILYCM #30 tab 12/25/19 Insulin Glargine [Lantus SoloStar Pen] 25 units SUBCUT BID #1 pen 12/29/19 Following Prescrptions Were Given to Patient: Insulin Glargine [Lantus SoloStar Pen] 25 units SUBCUT BID #1 pen Transmission Status: Received by [facility]/pharmacy #[id number] Primary Care Physician: Moni Cintron MD [Primary Care Provider] - Please follow up with your Primary Care Physician in: Follow-up within 2-3 days given serial re-admissions, need for close f/u Please Follow Up With: Ivan Garner MD When: Follow-up for evaluation for concerns for TBI w/ history of SDH. Please Follow Up With: Aris Nelson MD When: Follow-up 1st open appointment to establish. Patient Instructions: Hyperglycemia (High Blood Sugar), Hypoglycemia (Low Blood Sugar), What Is Type 2 Diabetes?, Using Injected Insulin, Types of Insulin, Healthy Meals for Diabetes Disposition: Home with Home Health Minutes spent on discharge:: 35 Patient Condition:: Fair Medical Necessity - Tobacco Use Smoking Status: Current every day smoker Tobacco Use: Cigarettes Meaningful Use Info Meaningful Use Diagnoses (Choose all that apply): None applicable Code Visit Inpatient E&M: 39160 Disch Hosp
[2019-12-29 11:31] LABS: Bedside Glucose 251 mg/dL (70-110)
[2019-12-29 14:36] LABS: Bedside Glucose 198 mg/dL (70-110)
--- NOTE | 2019-12-30 11:31 | CASEMGMT ---
Addendum entered by David Garcia 12/30/19 13:40: [facility] contact made with [facility]'s mother. Will speak with pt re: [facility] visit. Order for C RN placed. Gallito NAVARRO Original Note: RN CM Readmission Note: Last admission: 12.28.2019-12.29.2019 Diagnosis: DKA DC Disposition: Home, referral made to CM for f/u on Monday for C. -Referral received for [facility] for pt on dc. [facility] request [facility] for referral for RN/SW. Awaiting call back. -Pt was no show, or cancelled last two appts with Dr. Cintron. Last completed appt was 10.18.19, no future appts scheduled. - Pt last completed appt with Arti was in Oct, 2019 and pt has appt tomorrow @ 8:30 in [place]. -Call to Rosa Elena Early RN CM @ [facility] . [facility] is active with attempting to assist pt on outpt basis with appts, f/u. Updated on above information. Per Rosa Elena, Pt had f/u neurology appt with Nurse Practitioner Sandy Oliva on 12.19.2019- did attend this appt. -per Rosa Elena, she is reviewing having pt see psych/mental health to attempt to assist with barriers re: compliance for diabetes. Is assisting pt with follow up appointments. -will contact Rosa Elena re: Home Health visits when referral is complete. Gallito NAVARRO
--- NOTE | 2019-12-31 09:44 | CASEMGMT ---
TEODORO LAWLER Note: Continued care coordination for pt dc'd Monday. Call received from Rosa Elena Early RN CM [facility]. Per Rosa Elena, she is attempting to establish pt with counseling outpt and also changing PCP as pt is requesting male PCP. Per pt's mother, pt is packing and continues to say he is moving, however mother does not believe he has transportation. Glo is continuing to work with patient on outpt basis. Parents are continuing to assist pt if he is willing to accept their help. BS monitoring is sporadic. Pt has access to healthy food choices, but then goes out @ night and buys twinkies. TEODORO LAWLER thanked Glo LAWLER for her continued assist with pt on outpt basis. Recommend if pt returns to [facility]- further dc planning should include [facility] CM for updates on pt's current outpt care. -Call to [facility]'s office. Per storage specialist, appointment was cancelled. -Message left with [facility] for determination on HHC referral. Gallito DAVISN RN ACM
== END 2019-12-29 15:50 | disposition home or self-care (01) | DRG 638 ==
LOC: ED 16:06 → ICU 12-30 10:45
PROVIDERS: Admitting Provider Internal Medicine; Emergency Provider Physician Assistant Medical; PCP Internal Medicine; Visit Provider Internal Medicine
DX: E10.10 Type 1 diabetes mellitus with ketoacidosis without coma (principal); E87.1 Hypo-osmolality and hyponatremia; I42.0 Dilated cardiomyopathy; I42.6 Alcoholic cardiomyopathy; F32.9 Major depressive disorder, single episode, unspecified; F41.9 Anxiety disorder, unspecified; F17.210 Nicotine dependence, cigarettes, uncomplicated; G40.909 Epilepsy, unspecified, not intractable, without status epilepticus; I25.10 Atherosclerotic heart disease of native coronary artery without angina pectoris; I10 Essential (primary) hypertension; E78.5 Hyperlipidemia, unspecified; K21.9 Gastro-esophageal reflux disease without esophagitis; F10.21 Alcohol dependence, in remission; Y90.9 Presence of alcohol in blood, level not specified; Z82.49 Family history of ischemic heart disease and other diseases of the circulatory system; Z79.4 Long term (current) use of insulin; Z83.3 Family history of diabetes mellitus; S06.9X0A Unspecified intracranial injury without loss of consciousness, initial encounter; X58.XXXA Exposure to other specified factors, initial encounter; Y93.9 Activity, unspecified; Y92.89 Other specified places as the place of occurrence of the external cause; Y99.9 Unspecified external cause status
CPT/HCPCS: 80048; 80053; 80307; 80320; 81001; 82009; 82962; 83735; 84100; 85025; 85027; 92523; 93005; 96361; 96374; 97802; 99284; 99285; 99406; J7030; J7050; A4216; G0480; J2405; J7799

== ENCOUNTER 2019-12-31 08:23 | Inpatient (IN) | payer MEDICARE, MEDICAID, SELFPAY ==
[2019-12-28 17:45] VITALS: BMI 18.6
[2019-12-31] VITALS (20 sets, daily range): BP systolic 97–171; BP diastolic 47–93; PULSE 87–126; RESP 12–31; TEMP 36.1–36.9; O2SAT 91–100; BMI 19.6; BMI 17.2
--- NOTE | 2019-12-31 08:39 | EKG12_ITS ---
Test Reason : Blood Pressure : / mmHG Vent. Rate : 112 BPM Atrial Rate : 112 BPM P-R Int : 116 ms QRS Dur : 090 ms QT Int : 356 ms P-R-T Axes : 058 056 070 degrees QTc Int : 485 ms Sinus tachycardia Possible Left atrial enlargement Borderline ECG Confirmed by ALLISON SALINAS ([id number]), city editor KRUNAL DOOLEY ([id number]) on 01/03/2020 9:46:37 AM Referred By: GARY Confirmed By:ALLISON SALINAS
[2019-12-31 08:46] LABS: Bedside Glucose 424 mg/dL (70-110)
[2019-12-31] MEDS: 0.9% Normal Saline 1,000 ML 999 ML IV ×2 (08:53→11:41)
[2019-12-31] MEDS: Ondansetron 4 MG/2 ML Vial IV ×2 (08:55→21:38)
[2019-12-31 09:21] LABS: Absolute Neutrophil Count 12.5 X10^3/uL (2.0-7.7); Basophil# 0.06 X10^3/uL; Basophil% 0.4 % (0-1); Eosinophil# 0.02 X10^3/uL; Eosinophils% 0.1 % (0-5); Hematocrit 33.9 % (40-54); Hemoglobin 11.6 g/dL (13.0-16.5); Lymphocyte % 8.5 % (19-41); Mean Corp Hgb Conc 34.2 g/dL (32-36); Mean Corpuscular Hgb 31.5 pg (27.0-32.0); Mean Corpuscular Volume 92.1 fL (80-94); Mean Platelet Vol. 9.6 fl (6.2-12.0); Monocyte# 2.04 X10^3/uL; Monocyte% 12.5 % (0-10); NRBC Flagged by Analyzer 0 % (0-5); Neutrophil # 12.52 X10^3/uL (2.7-7.7); Neutrophil % 76.4 % (47-70); POSITIVE DIFFERENTIAL YES; Platelet Count 432 K/mm3 (150-450); Red Blood Count 3.68 M/mm3 (4.6-6.2); White Blood Count 16.4 K/mm3 (4.4-11.0)
[2019-12-31 09:23] LABS: Differential Indicated SCAN CRITERIA MET
[2019-12-31 09:34] LABS: Anion Gap 30 (5-15); BUN 17 mg/dL (7-18); BUN/Creat Ratio 12.8 RATIO (10-20); Calcium,Total 8.1 mg/dL (8.5-10.1); Chloride 97 mmol/L (98-107); Creatinine, Serum 1.33 mg/dL (0.70-1.30); Estimated Creatinine Clearance 66.62 ml/min; Potassium 4.8 mmol/L (3.5-5.1); Sodium Level 132 mmol/L (136-145)
[2019-12-31 09:36] LABS: Glucose 508 mg/dL (74-106)
--- NOTE | 2019-12-31 09:51 | ED.DCSUM_ITS ---
- ER Visit Summary Date of Service: 12/31/19 Chief Complaint: [Elevated blood sugar and vomiting] History of Present Illness: The patient is a 44 M [presents to the emergency department with vomiting that started around 2 AM. Patient states he is vomited multiple times. Patient is a type I diabetic who states that his blood sugar read high prior to going to bed last night. Patient gave himself 40 units of short acting insulin before bed. Patient was admitted within the last week for DKA. He denies any recent fever or cough. Patient does have history of diabetes, history of DKA, and history of acute kidney injury. 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 Cranial nerves II through XII grossly intact. TMs clear. Mucous membranes dry. No adenopathy. Cardiovascular-regular and tachycardic. No murmurs auscultated. Lungs-clear to auscultation, chest wall stable without crepitus or subcu emphysema Abdomen-normoactive bowel sounds, soft, nontender, no rebound or rigidity, no peritoneal signs. Extremities-intact ?4, normal range of motion, normal pulses, atraumatic] Test Results: [EKG obtained shows sinus tachycardia with a ventricular rate of 112 bpm. CBC with differential showing a 16.4, hemoglobin 11.6, hematocrit 34, platelets were 32. Chemistries unremarkable. His CO2 was 5 his glucose was 508. BUN was 17 and creatinine 1.33.] Emergency Department Course and Treatment: [Patient had a EJ IV established and was started on an insulin drip. Patient was given a liter mostly fluid bolus. Patient was given Zofran for nausea. Patient will be treated with normal saline at 250 cc an hour.] Treatment Plan: [Admit to ICU] Disposition: [Admit] Impression: [Diabetic ketoacidosis] This note was generated with [employer] dictation software. It may contain incorrect words, spelling, and punctuation that were not noted in review of the chart prior to signing ED Disposition - Plan for ED Patient: Referrals: Moni Cintron MD [Primary Care Provider] -
--- NOTE | 2019-12-31 09:53 | NURSING ---
ICU DKA SHEKHAR
--- NOTE | 2019-12-31 09:54 | NURSING ---
ICU 2
--- NOTE | 2019-12-31 10:18 | CASEMGMT ---
TEODORO LAWLER NOTE: Notes are also listed under previous admission. Forwarded for continuity of care. Pt is readmitted to [facility] [place] for DKA. [facility] was not initiated as pt returned to hospital. GERONIMO referral made and update re: post dc care coordination information with [facility] TEODORO LAWLER reviewed with Cherelle MELTON Mgr due to complexity of case and readmissions in re: to SW. Update also to Jody re: readmission. Gallito NAVARRO 12/31/19 09:44 - Case Management Note by David Garcia Num: [id number] : 1975 Patient Age: 44 RN CM Note: Continued care coordination for pt dc'd Monday. Call received from Rosa Elena Early RN CM [facility]. Per Rosa Elena, she is attempting to establish pt with counseling outpt and also changing PCP as pt is requesting male PCP. Per pt's mother, pt is packing and continues to say he is moving, however mother does not believe he has transportation. Glo is continuing to work with patient on outpt basis. Parents are continuing to assist pt if he is willing to accept their help. BS monitoring is sporadic. Pt has access to healthy food choices, but then goes out @ night and buys twinkies. TEODORO LAWLER thanked Glo LAWLER for her continued assist with pt on outpt basis. Recommend if pt returns to [facility] [place]- further dc planning should include [facility] CM for updates on pt's current outpt care. -Call to [facility]'s office. Per automobile drivers, appointment was cancelled. -Message left with Zaida, [facility] for determination on HHC referral. Gallito NAVARRO Initialized on 12/31/19 09:44 - END OF NOTE 12/30/19 11:31 - Case Management Note by David Garcia Num: [id number] : 1975 Patient Age: 44 Addendum entered by David Garcia 12/30/19 13:40: Call from Zaida, [facility]- contact made with pt's mother. Will speak with pt re: HHC visit. Order for HHC RN placed. Gallito NAVARRO Original Note: RN BUCKY Readmission Note: Last admission: 12.28.2019-12.29.2019 Diagnosis: DKA DC Disposition: Home, referral made to CM for f/u on Monday for HHC. -Referral received for [facility] for pt on dc. Call to Zaida @ [facility] to request review for referral for RN/SW. Awaiting call back. -Pt was no show, or cancelled last two appts with Dr. Cintron. Last completed appt was 10.18.19, no future appts scheduled. - Pt last completed appt with Arti was in Oct, 2019 and pt has appt tomorrow @ 8:30 in [facility]. -Call to Rosa Elena Early RN CM @ [facility] . [facility] CM is active with attempting to assist pt on outpt basis with appts, f/u. Updated on above information. Per Rosa Elena, Pt had f/u neurology appt with Nurse Practitioner Sandy Oliva on 12.19.2019- did attend this appt. -per Rosa Elena, she is reviewing having pt see psych/mental health to attempt to assist with barriers re: compliance for diabetes. Is assisting pt with follow up appointments. -will contact Rosa Elena re: Home Health visits when referral is complete. Gallito MARTINEZ RN AC
[2019-12-31 10:21] LABS: Bedside Glucose 413 mg/dL (70-110)
--- NOTE | 2019-12-31 10:35 | HP.PCM_ITS ---
Problem List (1) Dehydration Status: Acute (2) Acute kidney injury Status: Acute (3) Anxiety and depression Status: Chronic (4) Tobacco dependence Status: Chronic (5) DKA (diabetic ketoacidoses) Status: Acute Qualifiers: Diabetes mellitus type: type 1 Diabetes mellitus complication detail: without coma Qualified Code(s): E10.10 - Type 1 diabetes mellitus with ketoacidosis without coma (6) Diabetes type 1, uncontrolled Status: Chronic Qualifiers: Glycemic state: with hyperglycemia Qualified Code(s): E10.65 - Type 1 diabetes mellitus with hyperglycemia Comment: DKA w/ encephalopathy 03/2019 (7) Alcoholic cardiomyopathy Status: Chronic (8) Nicotine dependence Status: Chronic Qualifiers: Nicotine product type: cigarettes Substance use status: uncomplicated Qualified Code(s): F17.210 - Nicotine dependence, cigarettes, uncomplicated History of Present Illness Date of Admission: 12/31/19 Chief Complaint: nausea vomiting. The patient is a 44 year old M presents from home with nausea vomiting and hyperglycemia. Patient was discharged 2 days ago with diabetic ketoacidosis. Patient states that he is taking his prescribed insulin as instructed. Did discuss with the patient's mother, at bedside, who states that she did give him a dose of his insulin and stated that when she administrated, some of it ran out from the injection site. Stated that she gave him some more insulin. This is now the patient's fifth admission for diabetic ketoacidosis this calendar year. Told admission to [facility] the past 12 months. There was. From September 2018 to March 2019 where the patient was not admitted here. It appears that all these hospitalizations are due to diabetic ketoacidosis. Asked the mother if she actually observed him giving him his insulin, she states that he does not not let unless he is feeling very sick. In the emergency room, patient received Zofran and IV fluids. Started on insulin drip. Only an external jugular IV was placed by time I evaluated the patient. [] Past Medical History Past Medical History (Chronic Problems): Chronic Problems (Last Reviewed 12/28/19 @ 17:26 by Elvira Morillo DO) Anxiety and depression (Chronic) Tobacco dependence (Chronic) Diabetes type 1, uncontrolled (Chronic) DKA w/ encephalopathy 03/2019 Alcoholic cardiomyopathy (Chronic) Nicotine dependence (Chronic) Medical History: Medical History (Last Reviewed 12/31/19 @ 10:46 by Diogenes Ashraf DO) Diabetes type 1, uncontrolled (Chronic) E10.65 DKA w/ encephalopathy 03/2019 Alcoholic cardiomyopathy (Chronic) I42.6 Nicotine dependence (Chronic) F17.200 High cholesterol E78.00 history of vitamin deficiency Acute renal failure N17.9 Alcohol abuse F10.10 Anxiety F41.9 Dental caries K02.9 Depression F32.9 Diabetic ketoacidosis Onset Date: 03/2019 E11.10 Dilated cardiomyopathy I42.0 Elevated liver enzymes R74.8 H/O sepsis Z86.19 Hyponatremia E87.1 Lactic acidosis E87.2 Left atrial enlargement I51.7 Mycoplasma pneumonia J15.7 NSVT (nonsustained ventricular tachycardia) I47.2 Neuropathy G62.9 Prolonged QT interval R94.31 Seizure disorder G40.909 Steatosis of liver K76.0 Thrombocytopenia D69.6 ELIZABETH (acute kidney injury) N17.9 Metabolic encephalopathy Onset Date: 03/2019 G93.41 Diabetes type 1, controlled E10.9 dx : 08/2001 last exacerbation : dka : 05/13 hypoglycemic episode : never er visit : 05/13 Allergies zinc Allergy (Verified 12/31/19 08:23) Hives Home Medications: Ambulatory Orders Medication Instructions Recorded Atorvastatin Calcium 20 mg PO DAILY 04/22/19 Melatonin 6 mg PO QHS 09/17/19 Thiamine HCl [Vitamin B-1] 100 mg PO DAILY 09/17/19 acamprosate 333 mg tablet,delayed 666 mg PO BID tab 10/31/19 release Albuterol Inhaler [Ventolin Hfa] 1 - 2 puff INHALATION Q4H PRN PRN 11/30/19 Lamotrigine [Lamictal] 200 mg PO BID 12/07/19 Potassium Chloride [K-Dur] 20 meq PO BIDCM #60 tab 12/09/19 Carvedilol 3.125 mg PO BID 12/13/19 Folic Acid 800 mcg PO DAILY 12/13/19 Insulin Lispro [Insulin Lispro See Protocol SUBCUT TID 12/13/19 Mitul U-100] Levetiracetam 1,500 mg PO BID 12/13/19 Lisinopril [Zestril] 2.5 mg PO DAILY 12/13/19 Mirtazapine 30 mg PO QHS 12/13/19 buPROPion XL [Wellbutrin Xl] 150 mg PO DAILY 12/24/19 Blood Sugar Diagnostic [Test 1 ea UD #100 strip 12/25/19 Strips] Famotidine [Pepcid] 20 mg PO BID #60 tab 12/25/19 Multivitamins,Ther W-Minerals 1 tab PO DAILYCM #30 tab 12/25/19 [Multivitamin With Minerals (BKC)] Insulin Glargine [Lantus SoloStar 25 units SUBCUT BID #1 pen 12/29/19 Pen] Surgical History: Surgical History (Last Updated 12/31/19 @ 10:46 by Diogenes Ashraf DO) H/O craniotomy Z98.890 History of left heart catheterization Onset Date: 04/18/16 Z98.890 Hx of tonsillectomy Z98.890, Z90.89 Surgical History: - - Craniotomy with evacuation of intracranial hemorrhage Psychiatric History: No pertinent psych hx, Anxiety, Depression Smoking Status: Current every day smoker - *Family History Maternal Family History: Family History (Last Reviewed 12/31/19 @ 10:46 by Diogenes Ashraf DO) Mother Arthritis Thyroid disorder Father Diabetes Grandfather Diabetes Hypertension High cholesterol Grandmother Diabetes High cholesterol Arthritis History Items: No pertinent history Paternal Family History: Family History (Last Reviewed 12/31/19 @ 10:46 by Diogenes Ashraf DO) Mother Arthritis Thyroid disorder Father Diabetes Grandfather Diabetes Hypertension High cholesterol Grandmother Diabetes High cholesterol Arthritis History Items: No pertinent history Review of Systems Constitutional: Reports: Anorexia. Denies: Chills, Fever, Night Sweats Eyes: Reports: Blurred vision. Denies: Double vision HEENT: Denies: Head Aches, Sinus Congestion, Sinus Drainage Cardiovascular: Reports: Chest Pain. Denies: Palpitations Respiratory: Denies: Cough, Shortness of breath at rest, Sputum production Gastrointestinal: Reports: Abdominal Pain, Nausea, Vomiting. Denies: Diarrhea Genitourinary: Denies: Dysuria Musculoskeletal: Denies: Joint Pain, Joint Tenderness Skin: Denies: Rash, Wounds Neurological: Reports: Balance problems, Confusion - chronic Hematologic/ Lymphatic: Denies: Easy Bruising, Easy Bleeding, Hx of blood clot Comment: Review systems otherwise negative except for as mentioned above and in HPI. VTE Information - Inpt Only VTE Present on Admission: No VTE Mechan Device Prophylaxis: None VTE Pharm Prophylaxis ordered?: Yes - Physical Exam Vitals/I&O's: Vital Signs Temp Pulse Resp BP Pulse Ox 36.1 C L 118 H 26 H 171/89 H 100 12/31/19 08:24 12/31/19 10:16 12/31/19 10:16 12/31/19 10:16 12/31/19 10:16 Oxygen Delivery Method Room Air Weight: 65.771 kg Body Mass Index (BMI) 19.6 Finger Stick Blood Glucose 413 Intake and Output for Last 24 Hours 12/29/19 12/30/19 12/31/19 23:59 23:59 23:59 Intake Total 1007.15 / 1007.15 Balance 1007.15 / 1007.15 General: Alert, Confused, - - uncomfortable. retching in emesis bag. HEENT: Atraumatic, Normocephalic, - - temporal wasting Oral: Moist Mucosa, No Gingival or Mucosal Lesions/ Ulcerations Neck: No Nodes, Trachea Midline, - - Right EJ IV in place. Lungs: Clear to auscultation, Normal air movement Cardiovascular: Regular rate, Regular Rhythm, Normal S1, Normal S2, No murmurs Abdomen: Bowel Sounds Present, Soft, Non Tender, Non-Distended Extremities: No edema, No Calf Tenderness Skin: No rashes, No breakdown Musculoskeletal: No Tenderness to Palpation of Joints or Extremities, Cachexia, Muscle Wasting Neurological: Muscle tone normal, - - no clonus Psych/Mental Status: Anxious, Flat Affect Laboratory Results 12/31/19 08:40: POC Glucose 424 H 12/31/19 09:10: WBC 16.4 H, RBC 3.68 L, Hgb 11.6 L, Hct 33.9 L, MCV 92.1, MCH 31.5, MCHC 34.2, RDW Std Deviation 50.0 H, RDW Coeff of Omayra 15.0 H, Plt Count 432, MPV 9.6, Immature Gran % (Auto) 2.100 H, Neut % (Auto) 76.4 H, Lymph % (A uto) 8.5 L, Blount % (Auto) 12.5 H, Eos % (Auto) 0.1, Baso % (Auto) 0.4, Absolute Neuts (auto) 12.5 H, Absolute Lymphs (auto) 1.40, Nucleated RBC % 0, Diff Path Review March foll 12/31/19 09:10: Sodium 132 L, Potassium 4.8, Chloride 97 L, Carbon Dioxide 5.0 L*, Anion Gap 30 H, BUN 17, Creatinine 1.33 H, Estim Creat Clear Calc 66.62, Est GFR (MDRD) Af Amer 75, Est GFR (MDRD) Non-Af 62, BUN/Creatinine Ratio 12.8, Glucose 508 H*, Calcium 8.1 L 12/31/19 09:10: Acetone Level LARGE H 12/31/19 09:10: Sodium Cancelled, Potassium Cancelled, Chloride Cancelled, Carbon Dioxide Cancelled, Anion Gap Cancelled, BUN Cancelled, Creatinine Cancelled, Estim Creat Clear Calc Cancelled, Est GFR (MDRD) Af Amer Cancelled, Est GFR (MDRD) Non-Af Cancelled, BUN/Creatinine Ratio Cancelled, Glucose Cancelled, Calcium Cancelled 12/31/19 10:17: POC Glucose 413 H EKG reviewed showed ST w/o any acute changes. Current Medications Insulin Human Lispro 100 unit/ (Sodium Chloride) 100 mls @ 6.577 mls/hr IV .[id number] [facility]; Protocol Last Infusion: 12/31/19 10:18 Dose: 6.6 mls/hr Documented by: Sodium Chloride () 1,000 mls @ 250 mls/hr IV .Q4H [facility] Assessment/Plan All Active Problems (Last Reviewed 12/28/19 @ 17:26 by Elvira Morillo DO) Dehydration (Acute) Acute kidney injury (Acute) DKA (diabetic ketoacidoses) (Acute) 1. DKA * recurrent * patient claims he is taking his insulin as prescribed, but family unable to verify this. Given the frequency of his hospitalizations this year, I am concerned he is not giving himself insulin appropriately. * IVF * insulin gtt * NPO * eventually transition to basal and prandial insulins once gap closed 2. ELIZABETH * likley prerenal * IVF * monitor 3. Nausea and vomiting * unclear if due to DKA or helped precipitate it * consider GES if persists 4. DM2 * uncontrolled * A1c 9 on 12/01/2019 * would not increase his home insulins as it is unclear if he is administrating his insulin appropriately * follow up with endocrinology. * given his frequency of admissions as of late. Would recommend monitoring longer on his home insulin to see if he is being given too little insulin. 5. h/o SDH * s/p craniotomy * continue AED * f/u neurology as oupt. 6. VTE * mod risk * enoxaparin. DW family at bedside. Code Visit Inpatient E&M: 91130 Init Hosp L3
[2019-12-31 10:58] LABS: EST Glomerular Filtration Rate 62 mL/min (>60); Est Glom Filt Rate - Afr Amer 75 mL/min (>60)
[2019-12-31 12:20] LABS: Bedside Glucose 223 mg/dL (70-110)
[2019-12-31 12:20] LABS: Bedside Glucose 367 mg/dL (70-110)
[2019-12-31] MEDS: 0.9% Normal Saline 1,000 ML 500 ML IV (12:29)
--- NOTE | 2019-12-31 12:44 | CASEMGMT ---
Social Work Consult: Resources, Support. Informant: Self Referral Attempted to see patient. Nursing staff stating that patient is tired at this time and not alert enough for a productive conversation. Social work services to continue to follow. Voicemail received from patient mother, Kalpana Smart ([phone]). Kalpana requesting return phone call. Telephone call to Kalpana. This protective services social worker educating Kalpana that this protective services social worker is unable to provide Kalpana with patient information without patient first giving permission. Kalpana voicing understanding. Kalpana wanting to know what Kalpana can do to assist patient. This protective services social worker communicating to Kalpaan that this protective services social worker will check with patient first and call Kalpana back if patient is agreeable to this protective services social worker speaking with Kalpana. Kalpana voicing understanding. Meron CALABRESE, KEYLA
[2019-12-31 13:18] LABS: Anion Gap 23 (5-15); BUN 15 mg/dL (7-18); BUN/Creat Ratio 11.9 RATIO (10-20); Calcium,Total 7.9 mg/dL (8.5-10.1); Chloride 103 mmol/L (98-107); Creatinine, Serum 1.26 mg/dL (0.70-1.30); EST Glomerular Filtration Rate 66 mL/min (>60); Est Glom Filt Rate - Afr Amer 80 mL/min (>60); Estimated Creatinine Clearance 61.59 ml/min; Glucose 272 mg/dL (74-106); Potassium 3.8 mmol/L (3.5-5.1); Sodium Level 136 mmol/L (136-145)
[2019-12-31 13:35] LABS: Bedside Glucose 151 mg/dL (70-110)
[2019-12-31] MEDS: Dext 5%-0.45% NS 1,000 ML 150 ML IV ×2 (13:57→20:41)
[2019-12-31 14:25] LABS: Bedside Glucose 131 mg/dL (70-110)
--- NOTE | 2019-12-31 14:49 | CASEMGMT ---
RN BUCKY Readmission Note: Pt is readmitted to [facility] for DKA. [facility] HHS was not initiated as pt returned to hospital. GERONIMO referral made and update re: post dc care coordination information with [facility] TEODORO LAWLER reviewed with Cherelle MELTON Mgr due to complexity of case and readmissions in re: to GERONIMO. Update also to Jody re: readmission. -See RN BUCKY notes from previous admission for details related to discharge needs and post discharge care through [facility] [employer]. Gallito MARTINEZ RN ACM
--- NOTE | 2019-12-31 14:50 | PCM.NTREPORT ---
Nutrition Therapy Report - History Nutrition Services has been consulted to:: Conduct nutrition education, Conduct nutrition counseling Current diet / nutrition support order:: NPO - Anthropometric Measurements Height:: 6 ft 0.05 in Weight:: 57.6 kg Body Mass Index (BMI):: 17.2 - Relevant Labs Relevant Labs:: WBC 16.4 K/mm3 (4.4-11.0) H 12/31/19 09:10 RBC 3.68 M/mm3 (4.6-6.2) L 12/31/19 09:10 Hgb 11.6 g/dL (13.0-16.5) L 12/31/19 09:10 Hct 33.9 % (40-54) L 12/31/19 09:10 RDW Std Deviation 50.0 fl (35.1-43.9) H 12/31/19 09:10 RDW Coeff of Omayra 15.0 % (11.6-14.6) H 12/31/19 09:10 Immature Gran % (Auto) 2.100 % (0.0-0.9) H 12/31/19 09:10 Neut % (Auto) 76.4 % (47-70) H 12/31/19 09:10 Lymph % (Auto) 8.5 % (19-41) L 12/31/19 09:10 Barton % (Auto) 12.5 % (0-10) H 12/31/19 09:10 Absolute Neuts (auto) 12.5 X10^3/uL (2.0-7.7) H 12/31/19 09:10 Sodium 132 mmol/L (136-145) L 12/31/19 09:10 Chloride 97 mmol/L (98-107) L 12/31/19 09:10 Carbon Dioxide 10.0 mmol/L (21.0-32.0) L 12/31/19 12:15 Anion Gap 23 (5-15) H 12/31/19 12:15 Creatinine 1.33 mg/dL (0.70-1.30) H 12/31/19 09:10 Glucose 272 mg/dL (74-106) H 12/31/19 12:15 Calcium 7.9 mg/dL (8.5-10.1) L 12/31/19 12:15 - Assessment Food / Nutrition-Related History:: Poor PO intake [employer] d/t n/v, reported dislike of mom's cooking at home. Pt appears frustrated with inability to cook for self at home. Pt states he has food stamps, but just buys snacks with them. He reports strong liking for snickers bars. Wt on 11/30/19 was 142#. CBW 127#, suggesting a 15#/10.5% wt loss x 1 month, significant for malnutrition. Pt says he feels thin. - Nutrition Diagnosis Evidence of Malnutrition Exists:: Yes Severe PCM:: Social & Environmental circumstances - Nutrition Intervention Nutrition Prescription:: [id number] calories/day, 69-79 g protein/day. 5 (75g) CHO servings/meal - Food / Nutrient Delivery Interventions Summary of nutrition intervention:: Declines written nutrition education at this time. Pt and family have been personally counseled by this dietitian previously. Pt says repeatedly he knows he is not supposed to eat certain foods (i.e. chocolate, candy). Appears to have baseline knowledge of what he should do to better manage his diabetes, but clearly struggles with compliance and follow-through. Would benefit from mental health counseling. Case management and social work following. Nutrition support ordered as / adjusted to:: continue NPO. Recommend carbohydrate controlled diet when appropriate for PO intake. Glucerna 120 mL 4x/day when PO diet advanced. Nutrition education provided?: No - Declines at this time. - MNT Monitoring Further MNT monitoring and evaluation required?: Yes MNT Follow-up in:: 3-5 days
--- NOTE | 2019-12-31 15:12 | CASEMGMT ---
Social Work Patient now awake and resting in bed. Met with patient in room. Introduced self as well as hospital social worker role. Patient agreeable to speak with this hospital social worker. Marital/Social History: . Estranged from spouse. Patient stating to have last seen patient spouse 4.5 years ago when patient spoused kicked me out. Living Situation: Currently lives with patient mother and father. Patient was living in [place] with spouse prior to living with parents. Patient stating to have a goal of moving to [place], [place]. Patient stating to have friends in [place] and that life was better in [place]. Inquiring as to how long it has been since patient lived in [place], it has been awhile. Per patient mother it has been 15 years since patient lived in [place]. Support/Resources: Garden Implement Mechanic Lizabeth Early ([phone]) through [facility]. Lizabeth is associated with patient PCP: Dr. Cintron. Patient parents assist with transportation as patient does not drive due to seizure disorder. History: none Education/Employment: High School diploma. Patient did attend [employer] in [place], [place], unsure if patient completed degree. Patient currently under disability. 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 Patient recently got on disability. Mental health Treatment/History: Bi-polar, Depression, and Anxiety. Patient stating to have medication to take for mental health but I do not take it. Patient denies any history of inpatient psychiatric placement. Patient denies any current or history of suicidal thoughts or plans. Patient stating to have [facility] Patient protective services case worker, Lizabeth is currently working to set patient up with counseling through [facility]. Abuse Issues: none Substance Abuse Hx: Patient stating I have used it all. Patient stating substance of choice is alcohol. Patient stating that last drink was Nov.27 or . Patient stating I am doing better with drinking. Patient stating to have used to attend AA meetings but to have stopped due to patient friend that drove patient having health issues. Patient mother stating to not bring patient to AA meetings due to patient slipping out the back door and going to get alcohol. Patient stating to smoke less then 1 ppd of tobacco. Patient with history of inpatient rehabilitation for alcohol abuse. Mental Status Exam: A&Ox3 Appearance/General Behavior: clean, calm, directable. Mood/Affect: Depressed. Flat affect. Slow/steady speech pattern. Communication Pattern: Responds to questions. Thought Process: Denies any hallucinations, delusions, or paranoid thoughts. Assessment: This hospital social worker broached topic of patient recent hospitalizations, patient has had 8 visits to the hospital this year. This hospital social worker broaching topic of why patient is having difficulty with being compliant with managing diabetes. Patient stating to not be motivated. Patient stating I am a pessimistic person. This hospital social worker inquiring if patient checks blood sugars, patient confirming to check blood sugars and to take insulin. Patient stating I know how it works. This hospital social worker inquiring if patient knows how it works why patient continues to require medical attention. Patient stating to not be eating and to be down. Exploring with patient if patient had difficulty with medical management when patient was living in [place] 4 years ago, patient stating to have had no problems with managing DMI at that time. This hospital social worker exploring what has changed for patient. Patient stating I have never liked [place]. Patient stating to need to get out of my parents home. Broached topic of how patient managing patient health could lead to an increase in patient independence and ability to live on own, whether that be in [place] or elsewhere. Patient voicing understanding. Patient stating to not keep track of blood sugars. This hospital social worker encouraging patient to follow the recommended diet and to begin tracking blood sugars. Patient stating to be aware of what patient needs to do and to understand how to manage own health. This hospital social worker exploring patient willingness to begin counseling again. Patient stating to be agreeable to counseling again and to be aware that Lizabeth is working on setting patient up with counseling. This hospital social worker also noting that patient has not been going to doctor appointments. Patient stating I get sick. This hospital social worker educating patient that if patient is sick it is even more of a reason to follow up with doctors. Patient voicing understanding to all topics and discussion. Exploring possible motivators for patient. Patient stating I don't know. Patient able to voice that is is important that patient has a motivation to manage health in order to patient to manage health well. Had a conversation about patient right to make own choices. This hospital social worker was also able to explore the topic of patient behavior possibly being a passive approach to suicide. Patient stating I do not want to . Patient stating I want to keep living. Exploring options of community supports for patient. Patient stating to have been through the DM education class with [facility] and that it was not helpful. Patient agreeable to home health nursing and social work to assist with further education/accountability and support/resources. Exploring option of the [facility] Behavioral Health Program, patient not sure about this. Per the chart review this is something that was attempted in the past but patient was still abusing Alcohol and was not appropriate for the program at that time. Patient agreeable to this hospital social worker contacting patient mother. Telephone call to patient mother, Kalpana. Kalpana updating this hospital social worker on any above comments. Kalpana tearful on the phone stating to care about patient and to want to help patient but understanding that patient needs to want to help self before patient will be successful in managing own health. Active listening and support provided. Telephone call to [facility] Zaida NOVAK. Zaida was to begin start of care today but patient came to the hospital instead. Updated Zaida on order for social work. Zaida to call TEODORO Hernandez CM with any further questions for continued home health services. Zaida stating to need to check patient benefit with insurance prior to visit as well. Collaborating with hospital social worker structural engineering project manager, Chreyl Portillo. Cheryl has been in communication with Lizabeth Early and confirming plan for Sarah. Social work to continue to follow as needed. Meron Hicks BRAND PLANNER, KEYLA
[2019-12-31 15:26] LABS: Bedside Glucose 137 mg/dL (70-110)
[2019-12-31 15:49] LABS: Anion Gap 14 (5-15); BUN 13 mg/dL (7-18); BUN/Creat Ratio 12.5 RATIO (10-20); Calcium,Total 7.7 mg/dL (8.5-10.1); Chloride 108 mmol/L (98-107); Creatinine, Serum 1.04 mg/dL (0.70-1.30); EST Glomerular Filtration Rate 83 mL/min (>60); Est Glom Filt Rate - Afr Amer 100 mL/min (>60); Estimated Creatinine Clearance 74.62 ml/min; Glucose 141 mg/dL (74-106); Potassium 3.6 mmol/L (3.5-5.1); Sodium Level 137 mmol/L (136-145)
[2019-12-31] MEDS: Acetaminophen 325 MG Tablet 650 MG PO ×2 (16:21→22:42)
[2019-12-31 17:36] LABS: Bedside Glucose 132 mg/dL (70-110)
[2019-12-31 17:36] LABS: Bedside Glucose 136 mg/dL (70-110)
[2019-12-31 17:42] LABS: Bacteria 0 SEEN /hpf (None Seen); Red Blood Cells-Urine 0 SEEN /hpf (0-5); Squamous Epithelial Cells - UA 0 SEEN /hpf (0-5); White Blood Cells 0 SEEN /hpf (0-5)
[2019-12-31 17:43] LABS: Color, Urine Yellow (Yellow); Glucose, Dipstick 1000 mg/dl (Normal); Leukocyte Esterase-Dipstick Negative /ul (Negative); Nitrite-Dipstick Negative (Negative); Occult Blood-Urine Negative /ul (Negative); Protein-Dipstick 30 mg/dl (Negative); Urine Bilirubin Dipstick Negative (Negative); Urine Clarity Clear (Clear); Urine Urobilinogen Normal (Normal)
[2019-12-31 17:46] LABS: Ketone-Dipstick 150 mg/dl (Negative)
[2019-12-31 18:21] LABS: Mucous, Urine RARE /hpf (<or=2+)
[2019-12-31 18:25] LABS: Bedside Glucose 130 mg/dL (70-110)
[2019-12-31 19:22] LABS: Anion Gap 10 (5-15); BUN 13 mg/dL (7-18); BUN/Creat Ratio 12.6 RATIO (10-20); Calcium,Total 7.6 mg/dL (8.5-10.1); Chloride 108 mmol/L (98-107); Creatinine, Serum 1.03 mg/dL (0.70-1.30); EST Glomerular Filtration Rate 83 mL/min (>60); Est Glom Filt Rate - Afr Amer 101 mL/min (>60); Estimated Creatinine Clearance 75.34 ml/min; Glucose 132 mg/dL (74-106); Potassium 3.3 mmol/L (3.5-5.1); Sodium Level 137 mmol/L (136-145)
[2019-12-31 19:36] LABS: Bedside Glucose 118 mg/dL (70-110)
[2019-12-31 20:36] LABS: Bedside Glucose 125 mg/dL (70-110)
--- NOTE | 2019-12-31 21:05 | NURSING ---
Pt informed of order changes, asked freezer meal preference and pt wanted chicken tenders.
[2019-12-31] MEDS: lamoTRIgine 100 MG Tablet 200 MG PO (21:28)
[2019-12-31] MEDS: Carvedilol 3.125 MG TABLET PO (21:29)
[2019-12-31] MEDS: levETIRAcetam 750 MG Tablet 1500 MG PO (21:29)
--- NOTE | 2019-12-31 21:30 | NURSING ---
Ordered Lantus not given at this time d/t pt stating, I just don't feel like eating right now. This RN asked if pt was nauseous, and pt did deny prior to warming meal, but now says that his stomach is just upset for no reason. Pt educated that refusal to eat will cause the insulin drip to remain on and for the hourly fingersticks to cont. PRN Zofran given as per PRN order, and pt encouraged to try and eat.
[2019-12-31 21:56] LABS: Bedside Glucose 118 mg/dL (70-110)
--- NOTE | 2019-12-31 22:10 | NURSING ---
Pt cont to refuse to eat, meal tray and water pitcher removed from bedside table; sm cup of ice chips remains. Insulin drip cont, IVF changed to D5 0.45NS w/20meq KCl @ 150ml/hr.
[2019-12-31 22:56] LABS: Bedside Glucose 131 mg/dL (70-110)
[2019-12-31 23:55] LABS: Anion Gap 8 (5-15); BUN 10 mg/dL (7-18); BUN/Creat Ratio 10.4 RATIO (10-20); Calcium,Total 7.7 mg/dL (8.5-10.1); Chloride 107 mmol/L (98-107); Creatinine, Serum 0.96 mg/dL (0.70-1.30); EST Glomerular Filtration Rate 90 mL/min (>60); Est Glom Filt Rate - Afr Amer 109 mL/min (>60); Estimated Creatinine Clearance 80.83 ml/min; Glucose 135 mg/dL (74-106); Potassium 3.4 mmol/L (3.5-5.1); Sodium Level 136 mmol/L (136-145)
[2020-01-01] VITALS (16 sets, daily range): BP systolic 98–145; BP diastolic 51–87; PULSE 76–97; RESP 10–20; TEMP 36.6–36.9; O2SAT 98–100
[2020-01-01 01:01] LABS: Bedside Glucose 125 mg/dL (70-110)
[2020-01-01 02:21] LABS: Bedside Glucose 104 mg/dL (70-110)
--- NOTE | 2020-01-01 04:10 | NURSING ---
Pt's fingerstick glucose is 88, pt states that's getting awful damn low. Pt reminded that he refused to eat, so insulin drip was continued through the night. Pt asked if he was willing to eat at this time and he was agreeable. Pt provided cereal per request.
[2020-01-01 04:16] LABS: Bedside Glucose 88 mg/dL (70-110)
--- NOTE | 2020-01-01 04:31 | NURSING ---
Pt ate 1 bowl of shredded wheat cereal and was given 8units scheduled Lantus from previous order. Pt informed that insulin drip and IVF will be shut off in about an hour. Pt states appreciation.
[2020-01-01 05:44] LABS: Absolute Lymphocyte Count 2.34 X10^3/uL (0.83-4.51); Absolute Neutrophil Count 4.3 X10^3/uL (2.0-7.7); Basophil# 0.01 X10^3/uL; Basophil% 0.1 % (0-1); Eosinophil# 0.09 X10^3/uL; Eosinophils% 1.1 % (0-5); Hematocrit 26.9 % (40-54); Hemoglobin 9.4 g/dL (13.0-16.5); Lymphocyte # 2.34 X10^3/ul (4.0); Lymphocyte % 29.9 % (19-41); Mean Corp Hgb Conc 34.9 g/dL (32-36); Mean Corpuscular Hgb 31.1 pg (27.0-32.0); Mean Corpuscular Volume 89.1 fL (80-94); Mean Platelet Vol. 8.7 fl (6.2-12.0); Monocyte# 1.11 X10^3/uL; Monocyte% 14.2 % (0-10); NRBC Flagged by Analyzer 0 % (0-5); Neutrophil # 4.25 X10^3/uL (2.7-7.7); Neutrophil % 54.3 % (47-70); Platelet Count 283 K/mm3 (150-450); RBC Distribution Width CV 14.8 % (11.6-14.6); RBC Distribution Width SD 47.1 fl (35.1-43.9); Red Blood Count 3.02 M/mm3 (4.6-6.2); White Blood Count 7.8 K/mm3 (4.4-11.0)
[2020-01-01 05:59] LABS: ALB/GLOB Ratio 1.1 RATIO (0.9-2.4); AST(SGOT) 16 U/L (15-37); Alanine Aminotransfer ALT/SGPT 21 U/L (16-61); Albumin, Serum 2.6 g/dL (3.2-5.0); Alkaline Phosphatase 61 U/L (45-117); Anion Gap 3 (5-15); BUN 8 mg/dL (7-18); BUN/Creat Ratio 9.4 RATIO (10-20); Calcium,Total 7.9 mg/dL (8.5-10.1); Chloride 106 mmol/L (98-107); Creatinine, Serum 0.85 mg/dL (0.70-1.30); EST Glomerular Filtration Rate 104 mL/min (>60); Est Glom Filt Rate - Afr Amer 126 mL/min (>60); Estimated Creatinine Clearance 98.58 ml/min; Globulin 2.4 g/dL (2.2-4.2); Glucose 164 mg/dL (74-106); Potassium 3.3 mmol/L (3.5-5.1); Sodium Level 134 mmol/L (136-145)
[2020-01-01] MEDS: Enoxaparin 40 MG/0.4 ML Syringe SC (06:29)
[2020-01-01] MEDS: Ondansetron 4 MG/2 ML Vial IV (08:08)
[2020-01-01] MEDS: 0.9% Saline Lock 10 ML Syringe IV (08:08)
[2020-01-01 08:16] LABS: Bedside Glucose 187 mg/dL (70-110)
[2020-01-01] MEDS: Insulin Lispro 100 UNIT/ML INSULN.PEN SC ×6 (08:16→20:58)
[2020-01-01] MEDS: Glucerna Shake 120 ML LIQUID PO ×3 (10:04→20:54)
[2020-01-01] MEDS: lamoTRIgine 100 MG Tablet 200 MG PO ×2 (10:04→21:03)
[2020-01-01] MEDS: Carvedilol 3.125 MG TABLET PO ×2 (10:04→20:52)
[2020-01-01] MEDS: levETIRAcetam 750 MG Tablet 1500 MG PO ×2 (10:04→20:53)
--- NOTE | 2020-01-01 10:32 | PCM.PN.HOSP ---
Patient Problems: Active and Suspected Problems (Last Reviewed 12/31/19 @ 10:46 by Diogenes Ashraf DO) DKA (diabetic ketoacidoses) (Acute) Reason for Visit: DKA Subjective: Upset the fact that he is on a calorie restricted diet. Looks about how his mother treats him as though he is a 6-year-old want to get other house so he can go to [place] to be around friends who are family. Has not been to [place] in approximately 3 or 4years. States that he is planning on getting an Apartment on [address] (which is the main thoroughfare of [facility]). States that he does not drive and is planning on using the bus or taxi is to get his groceries and other items. 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 He is not set up anything in regards to this. Stated he will follow-up with the diabetes clinic but has not formally arranged for any Physician visits. Vitals/I&O's: Vital Signs Temp Pulse Resp BP Pulse Ox 36.9 C 97 13 117/82 H 100 01/01/20 10:00 01/01/20 10:00 01/01/20 10:00 01/01/20 10:00 01/01/20 10:00 Oxygen Delivery Method Room Air Weight: 62.2 kg Body Mass Index (BMI) 17.2 Finger Stick Blood Glucose 104 Intake and Output for Last 24 Hours 12/30/19 12/31/19 01/01/20 23:59 23:59 23:59 Intake Total 4310.51 / 4610.51 1514.68 / 1514.68 Output Total 1050 / 1400 650 / 650 Balance 3260.51 / 3210.51 864.68 / 864.68 General: Alert, No apparent distress HEENT: Atraumatic, Normocephalic Oral: Moist Mucosa, No Gingival or Mucosal Lesions/ Ulcerations Neck: No Nodes, Trachea Midline Lungs: Clear to auscultation, Normal air movement, No rhonchi, No wheeze Cardiovascular: Regular rate, Regular Rhythm, Normal S1, Normal S2 Abdomen: Bowel Sounds Present, Soft, Non Tender, Non-Distended Extremities: No edema, No Calf Tenderness Skin: No rashes, No breakdown Musculoskeletal: No Tenderness to Palpation of Joints or Extremities, Cachexia Psych/Mental Status: Appropriate, Flat Affect Laboratory Results 12/31/19 09:10: Est GFR (MDRD) Af Amer 75, Est GFR (MDRD) Non-Af 62 12/31/19 11:19: POC Glucose 367 H 12/31/19 12:15: Sodium 136, Potassium 3.8, Chloride 103, Carbon Dioxide 10.0 L, Anion Gap 23 H, BUN 15, Creatinine 1.26, Estim Creat Clear Calc 61.59, Est GFR (MDRD) Af Amer 80, Est GFR (MDRD) Non-Af 66, BUN/Creatinine Ratio 11.9, Glucose 272 H, Calcium 7.9 L 12/31/19 12:16: POC Glucose 223 H 12/31/19 13:25: POC Glucose 151 H 12/31/19 14:18: POC Glucose 131 H 12/31/19 15:15: Sodium 137, Potassium 3.6, Chloride 108 H, Carbon Dioxide 15.0 L, Anion Gap 14, BUN 13, Creatinine 1.04, Estim Creat Clear Calc 74.62, Est GFR (MDRD) Af Amer 100, Est GFR (MDRD) Non-Af 83, BUN/Creatinine Ratio 12.5, Glucose 141 H, Calcium 7.7 L 12/31/19 15:18: POC Glucose 137 H 12/31/19 16:20: POC Glucose 136 H 12/31/19 17:23: POC Glucose 132 H 12/31/19 17:30: Urine Color Yellow, Urine Clarity Clear, Urine pH 5.0, Ur Specific Pattison 1.020, Urine Protein 30 H, Urine Glucose (UA) 1000 H, Urine Ketones 150 H, Urine Occult Blood Negative, Urine Nitrite Negative, Urine Bilirubin Negative, Urine Urobilinogen Normal, Ur Leukocyte Esterase Negative, Urine RBC 0 SEEN, Urine WBC 0 SEEN, Ur Squamous Epith Cells 0 SEEN, Urine Bacteria 0 SEEN, Urine Mucus RARE 12/31/19 18:21: POC Glucose 130 H 12/31/19 18:58: Sodium 137, Potassium 3.3 L, Chloride 108 H, Carbon Dioxide 19.0 L, Anion Gap 10, BUN 13, Creatinine 1.03, Estim Creat Clear Calc 75.34, Est GFR (MDRD) Af Amer 101, Est GFR (MDRD) Non-Af 83, BUN/Creatinine Ratio 12.6, Glucose 132 H, Calcium 7.6 L 12/31/19 19:24: POC Glucose 118 H 12/31/19 20:33: POC Glucose 125 H 12/31/19 21:45: POC Glucose 118 H 12/31/19 22:47: POC Glucose 131 H 12/31/19 23:20: Sodium 136, Potassium 3.4 L, Chloride 107, Carbon Dioxide 21.0, Anion Gap 8, BUN 10, Creatinine 0.96, Estim Creat Clear Calc 80.83, Est GFR (MDRD) Af Amer 109, Est GFR (MDRD) Non-Af 90, BUN/Creatinine Ratio 10.4, Glucose 135 H, Calcium 7.7 L 01/01/20 00:56: POC Glucose 125 H 01/01/20 02:11: POC Glucose 104 01/01/20 04:06: POC Glucose 88 01/01/20 05:30: WBC 7.8, RBC 3.02 L, Hgb 9.4 L, Hct 26.9 L, MCV 89.1, MCH 31.1, MCHC 34.9, RDW Std Deviation 47.1 H, RDW Coeff of Omayra 14.8 H, Plt Count 283, MPV 8.7, Immature Gran % (Auto) 0.400, Neut % (Auto) 54.3, Lymph % (Auto) 29.9, Power % (Auto) 14.2 H, Eos % (Auto) 1.1, Baso % (Auto) 0.1, Absolute Neuts (auto) 4.3, Absolute Lymphs (auto) 2.34, Nucleated RBC % 0 01/01/20 05:30: Sodium 134 L, Potassium 3.3 L, Chloride 106, Carbon Dioxide 25.0, Anion Gap 3 L, BUN 8, Creatinine 0.85, Estim Creat Clear Calc 98.58, Est GFR (MDRD) Af Amer 126, Est GFR (MDRD) Non-Af 104, BUN/Creatinine Ratio 9.4 L, Glucose 164 H, Calcium 7.9 L, Total Bilirubin 0.30, AST 16, ALT 21, Alkaline Phosphatase 61, Total Protein 5.0 L, Albumin 2.6 L, Globulin 2.4, Albumin/Globulin Ratio 1.1 01/01/20 08:10: POC Glucose 187 H Current Medications Acetaminophen (Tylenol) 650 mg PO Q6H PRN PRN PRN Reason: Pain Score 1-10/Temp > 100.7 F Last Admin: 12/31/19 22:42 Dose: 650 mg Documented by: Albuterol Sulfate (Ventolin Aerosols) 2.5 mg INHALATION Q4H PRN PRN PRN Reason: SOB &/OR WHEEZING Atorvastatin Calcium (Lipitor) 20 mg PO DAILY [facility] Bupropion HCl (Wellbutrin Xl) 150 mg PO DAILY [facility] Carvedilol (Coreg) 3.125 mg PO BID [facility] Last Admin: 01/01/20 10:04 Dose: 3.125 mg Documented by: Enoxaparin Sodium (Lovenox) 40 mg SC DAILY@0600 [facility] Last Admin: 01/01/20 06:29 Dose: 40 mg Documented by: Famotidine (Pepcid) 20 mg PO BID [facility] Glucagon () 1 mg IM .X1 PRN PRN Reason: Hypoglycemia Sodium Chloride () 250 mls @ 15 mls/hr IV .[id number] PRN PRN Reason: Saline Flush Sodium Chloride () 250 mls @ 15 mls/hr IV .[id number] PRN PRN Reason: Additional IVPB Infusion Insulin Glargine (Lantus (Bkc)) 25 units SC BID [facility] Last Admin: 01/01/20 08:16 Dose: 25 u Documented by: Insulin Human Lispro (Humalog Kwikpen (Bkc)) 0 unit SC ACHS & 0200 [facility]; Protocol Last Admin: 01/01/20 08:16 Dose: 1 u Documented by: Insulin Human Lispro (Humalog Kwikpen (Bkc)) 5 unit SC TIDAC [facility] Lamotrigine (Lamictal) 200 mg PO BID [facility] Last Admin: 01/01/20 10:04 Dose: 200 mg Documented by: Levetiracetam (Keppra Tablet) 1,500 mg PO BID [facility] Last Admin: 01/01/20 10:04 Dose: 1,500 mg Documented by: Lisinopril (Zestril) 2.5 mg PO DAILY [facility] Melatonin (Melatonin) 6 mg PO QHS [facility] Mirtazapine (Remeron) 30 mg PO QHS [facility] Nicotine (Nicoderm Cq (Pbkc)) 14 mg TRANSDERM. DAILY [facility] Last Admin: 01/01/20 10:04 Dose: 14 mg Documented by: Non-Formulary Medication (Folic Acid) 800 mcg PO DAILY [facility] Nutritional Formula (Lactose Free) (Glucerna Shake) 120 ml PO 4X/DAY [facility] Last Admin: 01/01/20 10:04 Dose: 120 ml Documented by: Ondansetron HCl (Zofran) 4 mg IV Q8H PRN PRN PRN Reason: NAUSEA/VOMITING Last Admin: 01/01/20 08:08 Dose: 4 mg Documented by: Potassium Chloride (K-Dur) 20 meq PO BIDCM [facility] Sodium Chloride () 10 - 40 ml IV UD PRN PRN Reason: SALINE FLUSH Last Admin: 01/01/20 08:08 Dose: 10 ml Documented by: Thiamine HCl (Vitamin B1) 100 mg PO DAILY [facility] STROKE Vital Signs/Narrative: Vital Signs Temp Pulse Resp BP Pulse Ox 01/01/20 10:00 36.9 C 97 13 117/82 H 100 01/01/20 09:00 85 10 L 124/75 H 99 01/01/20 08:25 92 01/01/20 08:00 36.6 C 86 14 130/73 H 100 01/01/20 07:00 91 13 124/60 H 98 Medical Necessity - Tobacco Use Smoking Status: Current every day smoker Tobacco Use: Cigarettes Assessment/Plan All Active Problems (Last Reviewed 12/31/19 @ 10:46 by Diogenes Ashraf DO) DKA (diabetic ketoacidoses) (Acute) Acute kidney injury (Acute) Dehydration (Acute) 1. DKA recurrent now resolved patient claims he is taking his insulin as prescribed, but family unable to verify this. Given the frequency of his hospitalizations this year, I am concerned he is not giving himself insulin appropriately. resumed on prandial insulin schedule novolog 5 QA Instructed nursing to have direct observation of the patient checking his blood sugar, drawing up insulin and administering insulin. I am very concerned the patient is not properly giving himself insulin at home which is leading to his frequency of hospitalizations for diabetic ketoacidosis. 2. ELIZABETH Resolved. Likely prerenal. 3. Nausea and vomiting unclear if due to DKA or helped precipitate it consider GES if persists 4. DM2 uncontrolled A1c 9 on 12/01/2019 follow up with endocrinology. given his frequency of admissions as of late. Would recommend monitoring longer on his home insulin to see if he is being given too little insulin. 5. h/o SDH s/p craniotomy continue AED f/u neurology as oupt. 6. VTE mod risk enoxaparin. Greater than 35 minutes of which greater than 50% of time was discussing the patient about administering his insulin properly but also talking to him about his potential moved to [place] [facility] make sure that he has proper follow-up and also addressing other ancillary issues such as getting groceries and ensuring that he has proper means of transportation for getting around. I told the patient I am concerned that he does really have a clear concise plan about what he can do in [place] as he is lived there before and stated that things have changed since he was previously there in regards to what he can and cannot do. Code Visit Inpatient E&M: 56946 Subs Hosp L3
--- NOTE | 2020-01-01 11:44 | NURSING ---
Diabetic teaching given including glucometer and insulin injection. Pt took own blood sugar and gave self insulin under direct supervision.
[2020-01-01 11:55] LABS: Bedside Glucose 194 mg/dL (70-110)
[2020-01-01 13:15] LABS: Pathologist Review Reviewed
[2020-01-01] MEDS: Folic Acid 1 MG Tablet PO (15:01)
[2020-01-01] MEDS: Lisinopril 2.5 MG Tablet PO (15:01)
[2020-01-01] MEDS: buPROPion (XL) 150 MG TABLET.XL PO (15:01)
[2020-01-01] MEDS: Thiamine Hydrochloride 100 MG Tablet PO (15:01)
[2020-01-01 16:11] LABS: Bedside Glucose 165 mg/dL (70-110)
[2020-01-01] MEDS: MELATONIN 3 MG TABLET 6 MG PO (20:52)
[2020-01-01] MEDS: Atorvastatin Calcium 20 MG Tablet PO (20:52)
[2020-01-01] MEDS: Famotidine 20 MG Tablet PO (20:53)
[2020-01-01] MEDS: Acetaminophen 325 MG Tablet 650 MG PO (20:53)
[2020-01-01] MEDS: Mirtazapine 30 MG Tablet PO (20:54)
[2020-01-01 21:06] LABS: Bedside Glucose 169 mg/dL (70-110)
[2020-01-02 02:18] VITALS: BP 111/68; PULSE 77; RESP 18; TEMP 36.5; O2SAT 99
[2020-01-02 02:26] LABS: Bedside Glucose 75 mg/dL (70-110)
[2020-01-02 05:52] LABS: Absolute Lymphocyte Count 2.44 X10^3/uL (0.83-4.51); Absolute Neutrophil Count 1.4 X10^3/uL (2.0-7.7); Basophil# 0.01 X10^3/uL; Basophil% 0.2 % (0-1); Eosinophil# 0.12 X10^3/uL; Eosinophils% 2.5 % (0-5); Hemoglobin 9.4 g/dL (13.0-16.5); Lymphocyte # 2.44 X10^3/ul (4.0); Lymphocyte % 51.2 % (19-41); Mean Corp Hgb Conc 34.8 g/dL (32-36); Mean Corpuscular Hgb 30.7 pg (27.0-32.0); Mean Corpuscular Volume 88.2 fL (80-94); Mean Platelet Vol. 9.2 fl (6.2-12.0); Monocyte# 0.79 X10^3/uL; Monocyte% 16.6 % (0-10); NRBC Flagged by Analyzer 0 % (0-5); Neutrophil # 1.39 X10^3/uL (2.7-7.7); Neutrophil % 29.1 % (47-70); Platelet Count 307 K/mm3 (150-450); RBC Distribution Width CV 14.7 % (11.6-14.6); RBC Distribution Width SD 46.8 fl (35.1-43.9); Red Blood Count 3.06 M/mm3 (4.6-6.2); White Blood Count 4.8 K/mm3 (4.4-11.0)
[2020-01-02 06:27] LABS: Anion Gap 4 (5-15); BUN 3 mg/dL (7-18); BUN/Creat Ratio 4.7 RATIO (10-20); Calcium,Total 8.4 mg/dL (8.5-10.1); Chloride 104 mmol/L (98-107); Creatinine, Serum 0.64 mg/dL (0.70-1.30); EST Glomerular Filtration Rate 146 mL/min (>60); Est Glom Filt Rate - Afr Amer 176 mL/min (>60); Estimated Creatinine Clearance 130.93 ml/min; Glucose 80 mg/dL (74-106); Potassium 3.3 mmol/L (3.5-5.1); Sodium Level 138 mmol/L (136-145)
[2020-01-02] MEDS: Enoxaparin 40 MG/0.4 ML Syringe SC (06:32)
[2020-01-02 07:25] VITALS: O2SAT 98
[2020-01-02] MEDS: Insulin Lispro 100 UNIT/ML INSULN.PEN SC (08:18)
[2020-01-02] MEDS: Folic Acid 1 MG Tablet PO (08:25)
[2020-01-02 08:52] VITALS: BP 116/70; PULSE 84; RESP 18; TEMP 36.7; O2SAT 99
[2020-01-02] MEDS: Famotidine 20 MG Tablet PO (09:20)
[2020-01-02] MEDS: lamoTRIgine 100 MG Tablet 200 MG PO (09:20)
[2020-01-02] MEDS: Carvedilol 3.125 MG TABLET PO (09:28)
[2020-01-02] MEDS: levETIRAcetam 750 MG Tablet 1500 MG PO (09:28)
[2020-01-02] MEDS: Thiamine Hydrochloride 100 MG Tablet PO (09:28)
[2020-01-02] MEDS: Lisinopril 2.5 MG Tablet PO (09:28)
[2020-01-02] MEDS: buPROPion (XL) 150 MG TABLET.XL PO (09:28)
--- NOTE | 2020-01-02 10:05 | DCINST_ITS ---
You will use the following diet at home:: Calorie/Carbohydrate Controlled (specify 1200, 1400, etc) - 1800 Your food should be the consistency of: Regular Your liquids should be the consistency of: Regular/Thin Call your doctor if you observe: - - uncontrolled thirst and urination. lincoln stently elevated glucose (>200). Instructions: Eating Out When You Have Diabetes, Diabetes: Keeping Feet Healthy, Diabetes: Inspecting Your Feet, Diabetes: Shopping for and Preparing Meals, Diabetes: Caring for Your Body, Diabetes: Sick-Day Plan, Diabetes: Activity Tips, Diabetes: Understanding Carbohydrates, Fats, and Protein, How to Check Your Blood Sugar, Using Injected Insulin, Types of Insulin Allergies/Adverse Reactions: Allergies zinc Allergy (Verified 12/31/19 08:23) Hives Medications to take at Discharge Atorvastatin Calcium 20 mg PO DAILY 04/22/19 Melatonin 6 mg PO QHS 09/17/19 Thiamine HCl [Vitamin B-1] 100 mg PO DAILY 09/17/19 acamprosate 333 mg tablet,delayed release 666 mg PO BID tab 10/31/19 Albuterol Inhaler [Ventolin Hfa] 1 - 2 puff INHALATION Q4H PRN PRN 11/30/19 Lamotrigine [Lamictal] 200 mg PO BID 12/07/19 Potassium Chloride [K-Dur] 20 meq PO BIDCM #60 tab 12/09/19 Carvedilol 3.125 mg PO BID 12/13/19 Folic Acid 800 mcg PO DAILY 12/13/19 Levetiracetam 1,500 mg PO BID 12/13/19 Lisinopril [Zestril] 2.5 mg PO DAILY 12/13/19 Mirtazapine 30 mg PO QHS 12/13/19 buPROPion XL [Wellbutrin Xl] 150 mg PO DAILY 12/24/19 Blood Sugar Diagnostic [Test Strips] 1 [facility] UD #100 strip 12/25/19 Famotidine [Pepcid] 20 mg PO BID #60 tab 12/25/19 Multivitamins,Ther W-Minerals [Multivitamin With Minerals (BKC)] 1 tab PO DAILYCM #30 tab 12/25/19 Insulin Glargine [Lantus SoloStar Pen] 25 units SUBCUT BID #1 pen 12/29/19 Insulin Lispro [Insulin Lispro Kwikpen U-100] 5 unit SUBCUT TIDCM #0 01/02/20 Primary Care Physician: Moni Cintron MD [Primary Care Provider] - Within 1 Week Test Results: Test results from this visit will be discussed in further detail at your follow- up appointment, if applicable. Please Follow Up With: Aris Nelson MD - endocrinology When: 2 weeks Proposed Discharge Date: 01/02/20
--- NOTE | 2020-01-02 10:08 | DS.PCM_ITS ---
Discharge Date and Diagnosis Date of Admission: 12/31/19 Date of Discharge: 01/02/20 - Primary Discharge Diagnosis 1. DKA * recurrent * now resolved * patient claims he is taking his insulin as prescribed, but family unable to verify this. Given the frequency of his hospitalizations this year, I am concerned he is not giving himself insulin appropriately. * resumed on prandial insulin * schedule novolog 5 QA * Instructed nursing to have direct observation of the patient checking his blood sugar, drawing up insulin and administering insulin. I am very concerned the patient is not properly giving himself insulin at home which is leading to his frequency of hospitalizations for diabetic ketoacidosis. Patient observed today and did not even inject insulin into his skin. Sprayed into the air and directly onto the skin on 2 separate occasions. * Had a lengthy conversation with the patient and stated that his a recurrent diabetic ketoacidosis is due to him either improperly administering his insulin or not administering his insulin at all. Patient was very reluctant to have his parents oversee him administering his insulin but eventually did relent. Discussed with the patient's mother about this who I told her that he is simply not administering his insulin which is the reason for his recurrent diabetic ketoacidosis. The parents will oversee the patient in regards to administering his insulin. 2. ELIZABETH * Resolved. Likely prerenal. 3. Nausea and vomiting * unclear if due to DKA or helped precipitate it * consider GES if persists 4. Diabetes mellitus type I * This is a correction, previously was documented as diabetes mellitus type 2. * uncontrolled, elevated * A1c 9 on 12/01/2019 * follow up with endocrinology. * given his frequency of admissions as of late. Would recommend monitoring longer on his home insulin to see if he is being given too little insulin. 5. h/o SDH * s/p craniotomy * continue AED * f/u neurology as oupt. 6. Probable dementia * Discussed with the patient's mother states that prior to the patient's traumatic brain injury, patient was having issues. 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 Recommend outpatient follow-up with geriatrics. Patient is very impulsive and has plans to go to [facility] and live. Spoke with patient directly about where he would live, how he would get his groceries, who would oversee him administering insulin. Patient just kept stating that he knows a mariangel who has an apartment for him on [address]. I told the patient that I think that is a really bad idea at this point time until he can demonstrate proper medical care and hygiene. I told him to at least give it a month before he considers going to [place]. I am concerned that he would fail miserably moving down there as he would not have the proper support network. Patient states that he has some friends down there were like family and though he is not drinking would live on [address], which is her main [address] [place] [employer] with many bars and restaurants, injuring coffee and soda. I highly doubt that and feel the patient would resume to drinking alcohol heavily again. 7. Nutrition: evidence of malnutrition with severe suboptimal energy intake and severe weight loss * instructions provided. - Secondary Discharge Diagnosis Chronic Problems (Last Reviewed 12/31/19 @ 10:46 by Diogenes Ashraf DO) Tobacco dependence (Chronic) Anxiety and depression (Chronic) Diabetes type 1, uncontrolled (Chronic) DKA w/ encephalopathy 03/2019 Alcoholic cardiomyopathy (Chronic) Nicotine dependence (Chronic) Hospital Course and Treatment Operations: None Procedures: None Summary of Care Provided: The patient is a 44 year old M presents with diabetic ketoacidosis. Patient start on insulin drip and then transition over to his typical home regimen. Patient has not been admitted 5 times within the past 5 weeks for diabetic ketoacidosis. Patient is not able to demonstrate proper administration of his own insulin so this is a likely culprit for his recurrent diabetic ketoacidosis. Family will assist in regards to observing and administering the insulin at home. [] - Physical Exam Vitals/I&O's: Vital Signs Temp Pulse Resp BP Pulse Ox 36.7 C 84 18 116/70 99 01/02/20 08:52 01/02/20 08:52 01/02/20 08:52 01/02/20 08:52 01/02/20 08:52 Oxygen Delivery Method Room Air Weight: 61.6 kg Body Mass Index (BMI) 17.2 Finger Stick Blood Glucose 104 Intake and Output for Last 24 Hours 12/31/19 01/01/20 01/02/20 23:59 23:59 23:59 Intake Total 4310.51 / 4610.51 2854.68 / 2854.68 240 / 240 Output Total 1050 / 1400 1150 / 1150 800 / 800 Balance 3260.51 / 3210.51 1704.68 / 1704.68 -560 / -560 General: Alert, No apparent distress HEENT: Atraumatic, Normocephalic Psych/Mental Status: Flat Affect Microbiology Past 72 Hours 12/31/19 09:40 Urine, Clean Catch Urine Culture - Preliminary GPC Poss Enterococcus sp Mixed Gram Positive Organisms Laboratory Results 12/31/19 09:10: Diff Path Review Reviewed 01/01/20 11:38: POC Glucose 194 H 01/01/20 15:59: POC Glucose 165 H 01/01/20 20:57: POC Glucose 169 H 01/02/20 02:13: POC Glucose 75 01/02/20 05:38: WBC 4.8, RBC 3.06 L, Hgb 9.4 L, Hct 27.0 L, MCV 88.2, MCH 30.7, MCHC 34.8, RDW Std Deviation 46.8 H, RDW Coeff of Omayra 14.7 H, Plt Count 307, MPV 9.2, Immature Gran % (Auto) 0.400, Neut % (Auto) 29.1 L, Lymph % (Auto) 51.2 H, Henry % (Auto) 16.6 H, Eos % (Auto) 2.5, Baso % (Auto) 0.2, Absolute Neuts (auto) 1.4 L, Absolute Lymphs (auto) 2.44, Nucleated RBC % 0 01/02/20 05:38: Sodium 138, Potassium 3.3 L, Chloride 104, Carbon Dioxide 30.0, Anion Gap 4 L, BUN 3 L, Creatinine 0.64 L, Estim Creat Clear Calc 130.93, Est GFR (MDRD) Af Amer 176, Est GFR (MDRD) Non-Af 146, BUN/Creatinine Ratio 4.7 L, Glucose 80, Calcium 8.4 L Current Medications Acetaminophen (Tylenol) 650 mg PO Q6H PRN PRN PRN Reason: Pain Score 1-10/Temp > 100.7 F Last Admin: 01/01/20 20:53 Dose: 650 mg Documented by: Albuterol Sulfate (Ventolin Aerosols) 2.5 mg INHALATION Q4H PRN PRN PRN Reason: SOB &/OR WHEEZING Atorvastatin Calcium (Lipitor) 20 mg PO QHS OZZIE Last Admin: 01/01/20 20:52 Dose: 20 mg Documented by: Bupropion HCl (Wellbutrin Xl) 150 mg PO DAILY [facility] Last Admin: 01/02/20 09:28 Dose: 150 mg Documented by: Carvedilol (Coreg) 3.125 mg PO BID [facility] Last Admin: 01/02/20 09:28 Dose: 3.125 mg Documented by: Enoxaparin Sodium (Lovenox) 40 mg SC DAILY@0600 [facility] Last Admin: 01/02/20 06:32 Dose: 40 mg Documented by: Famotidine (Pepcid) 20 mg PO BID [facility] Last Admin: 01/02/20 09:20 Dose: 20 mg Documented by: Folic Acid (Folic Acid) 1 mg PO DAILY@0800 [facility] Last Admin: 01/02/20 08:25 Dose: 1 mg Documented by: Glucagon () 1 mg IM .X1 PRN PRN Reason: Hypoglycemia Sodium Chloride () 250 mls @ 15 mls/hr IV .[id number] PRN PRN Reason: Saline Flush Sodium Chloride () 250 mls @ 15 mls/hr IV .[id number] PRN PRN Reason: Additional IVPB Infusion Insulin Glargine (Lantus (Bkc)) 25 units SC BID [facility] Last Admin: 01/02/20 09:20 Dose: 25 u Documented by: Insulin Human Lispro (Humalog Kwikpen (Bkc)) 0 unit SC ACHS & 0200 [facility]; Protocol Last Admin: 01/02/20 06:38 Dose: Not Given Documented by: Insulin Human Lispro (Humalog Kwikpen (Bk)) 5 unit SC TIDAC [facility] Last Admin: 01/02/20 08:18 Dose: 5 u Documented by: Lamotrigine (Lamictal) 200 mg PO BID [facility] Last Admin: 01/02/20 09:20 Dose: 200 mg Documented by: Levetiracetam (Keppra Tablet) 1,500 mg PO BID [facility] Last Admin: 01/02/20 09:28 Dose: 1,500 mg Documented by: Lisinopril (Zestril) 2.5 mg PO DAILY [facility] Last Admin: 01/02/20 09:28 Dose: 2.5 mg Documented by: Melatonin (Melatonin) 6 mg PO QHS [facility] Last Admin: 01/01/20 20:52 Dose: 6 mg Documented by: Mirtazapine (Remeron) 30 mg PO QHS [facility] Last Admin: 01/01/20 20:54 Dose: 30 mg Documented by: Nicotine (Nicoderm Cq (Pbkc)) 14 mg TRANSDERM. DAILY [facility] Last Admin: 01/02/20 09:29 Dose: 14 mg Documented by: Nutritional Formula (Lactose Free) (Glucerna Shake) 120 ml PO 4X/DAY [facility] Last Admin: 01/02/20 09:28 Dose: Not Given Documented by: Ondansetron HCl (Zofran) 4 mg IV Q8H PRN PRN PRN Reason: NAUSEA/VOMITING Last Admin: 01/01/20 08:08 Dose: 4 mg Documented by: Potassium Chloride (K-Dur) 20 meq PO BIDCM [facility] Last Admin: 01/02/20 08:25 Dose: 20 meq Documented by: Sodium Chloride () 10 - 40 ml IV UD PRN PRN Reason: SALINE FLUSH Last Admin: 01/01/20 08:08 Dose: 10 ml Documented by: Thiamine HCl (Vitamin B1) 100 mg PO DAILY [facility] Last Admin: 01/02/20 09:28 Dose: 100 mg Documented by: Discharge Diet: 1800 Calorie Control Diet Call your doctor if you observe: - - uncontrolled thirst and urination. peristently elevated glucose (>200). Home Medications: Medications to take at Discharge Atorvastatin Calcium 20 mg PO DAILY 04/22/19 Melatonin 6 mg PO QHS 09/17/19 Thiamine HCl [Vitamin B-1] 100 mg PO DAILY 09/17/19 acamprosate 333 mg tablet,delayed release 666 mg PO BID tab 10/31/19 Albuterol Inhaler [Ventolin Hfa] 1 - 2 puff INHALATION Q4H PRN PRN 11/30/19 Lamotrigine [Lamictal] 200 mg PO BID 12/07/19 Potassium Chloride [K-Dur] 20 meq PO BIDCM #60 tab 12/09/19 Carvedilol 3.125 mg PO BID 12/13/19 Folic Acid 800 mcg PO DAILY 12/13/19 Levetiracetam 1,500 mg PO BID 12/13/19 Lisinopril [Zestril] 2.5 mg PO DAILY 12/13/19 Mirtazapine 30 mg PO QHS 12/13/19 buPROPion XL [Wellbutrin Xl] 150 mg PO DAILY 12/24/19 Blood Sugar Diagnostic [Test Strips] 1 ea MC UD #100 strip 12/25/19 Famotidine [Pepcid] 20 mg PO BID #60 tab 12/25/19 Multivitamins,Ther W-Minerals [Multivitamin With Minerals (BKC)] 1 tab PO DAILYCM #30 tab 12/25/19 Insulin Glargine [Lantus SoloStar Pen] 25 units SUBCUT BID #1 pen 12/29/19 Insulin Lispro [Insulin Lispro Kwikpen U-100] 5 unit SUBCUT TIDCM #0 01/02/20 Primary Care Physician: Moni Cintron MD [Primary Care Provider] - Within 1 Week Please Follow Up With: Aris Nelson MD - endocrinology When: 2 weeks Patient Instructions: How to Check Your Blood Sugar, Using Injected Insulin, Types of Insulin, Eating Out When You Have Diabetes, Diabetes: Keeping Feet Healthy, Diabetes: Inspecting Your Feet, Diabetes: Shopping for and Preparing Meals, Diabetes: Caring for Your Body, Diabetes: Sick-Day Plan, Diabetes: Activity Tips, Diabetes: Understanding Carbohydrates, Fats, and Protein Disposition: Home with Home Health Minutes spent on discharge:: 60 Patient Condition:: Fair Medical Necessity - Tobacco Use Smoking Status: Current every day smoker Tobacco Use: Cigarettes Meaningful Use Info Meaningful Use Diagnoses (Choose all that apply): None applicable Code Visit Inpatient E&M: 46719 Disch Hosp
[2020-01-02 11:35] LABS: Bedside Glucose 142 mg/dL (70-110)
[2020-01-02 11:40] VITALS: BP 118/70; PULSE 80; RESP 18; TEMP 36.8; O2SAT 100
--- NOTE | 2020-01-02 15:12 | CASEMGMT ---
Social Work Following up with patient in room. Patient aware of plan for patient to discharge to home with parents today. Patient continues to be agreeable to home health services through [facility] Home Health care (as we perviously set up) for nursing and social work. This social worker aide broaching topic of patient writing down blood sugars, patient stating I am not going to write down my blood sugars. Patient stating I don't want to lie. This social worker aide thanking patient for being truthful but acknowledging with patient the importance of managing patient health. Patient stating plans to move to [place], [place] and that patient father is going to take me. Patient stating to have an apartment set up with matt mary. This social worker aide clarifying with patient about when patient is planning to move to [place]. Patient stating I don't know. Patient willing to discuss further discharge planning in [place], [place] for while patient is still in [place]. Patient planning to follow up with Siddhartha Phillips, stating I like her. Patient stating to understand how to manage own health and that I just choose not to sometimes. Patient encouraged to allow patient mother to assist as needed. Patient agreeable to this social worker aide contacting patient mother as well as collaborating with patient director of casework, Lizabeth through [facility]. Per Regulo Franks RN CM, home health was notified about patient discharge today and plans to follow up with patient tomorrow. Telephone call to Lizabeth [facility] [employer]. Lizabeth stating to have patient set up with counseling appointment through [facility] on Monday (01/06/2020). Lizabeth planning to contact patient tomorrow to update patient on this. Lizabeth aware that home health will be following with patient and patient plan to move to [place], [place]. PLAN: Discharge to home with parents and home health to follow up with. KEYLA Gerardo
--- NOTE | 2020-01-02 19:00 | CASEMGMT ---
Social Work Telephone call to patient mother, Kalpana. Patient is now home. Kalpana stating that at this time patient has been receptive to Kalpana assisting with patient managing blood sugars and insulin. Kalpana stating to have observed patient giving self insulin appropriately on this day. Kalpana aware of nursing concern of patient being able to manage giving self insulin. Kalpana stating that patient is giving own insulin with Kalpana prompting patient. Kalpana stating that at this time things are going well. Kalpana aware that home health will be following up with patient tomorrow. No further questions. Meron Hicks MSW, KEYLA
[2020-01-03 00:31] LABS: Bedside Glucose 104 mg/dL (70-110)
--- NOTE | 2020-01-08 12:54 | CASEMGMT ---
Social Work Follow-up call, spoke with patient mother, Kalpana, patient verbally agreeing to this. Kalpana stating that patient is doing well. Kalpana stating that patient did have a high blood sugar this morning but we seem to be managing well. Kalpana stating that home health nursing has been a good thing for patient and has helped patient maintain compliance. Kalpana stating that Amor from home health is to come for a home health visit today. Kalpana voicing no concerns other then patient missing appointment with Siddhartha Laws today due to having the wrong time. Kalpana stating that a new appointment has been set up for next week. Meron CALABRESE, KEYLA
== END 2020-01-02 11:45 | disposition home or self-care (01) | DRG 638 ==
LOC: ED 08:59 → ICU 10:50 → MS3 01-01 15:42
PROVIDERS: Emergency Provider Emergency Medicine; PCP Internal Medicine
DX: E10.10 Type 1 diabetes mellitus with ketoacidosis without coma (principal); N17.9 Acute kidney failure, unspecified; I42.6 Alcoholic cardiomyopathy; Z68.1 Body mass index [BMI] 19.9 or less, adult; F17.210 Nicotine dependence, cigarettes, uncomplicated; F32.9 Major depressive disorder, single episode, unspecified; F41.9 Anxiety disorder, unspecified; E86.0 Dehydration; Z79.4 Long term (current) use of insulin; F03.90 Unspecified dementia, unspecified severity, without behavioral disturbance, psychotic disturbance, mood disturbance, and anxiety; Z82.49 Family history of ischemic heart disease and other diseases of the circulatory system; Z83.3 Family history of diabetes mellitus
CPT/HCPCS: 36415; 80048; 80053; 81001; 82009; 82962; 85025; 87086; 87088; 93005; 97802; 97803; 99284; J7030; A4216; J2405; J7799

== ENCOUNTER → 2020-01-16 10:43 | Outpatient (CLI) | payer MEDICARE, MEDICAID, SELFPAY ==
[2019-12-31 14:58] VITALS: BMI 17.2
[2020-01-16 12:41] LABS: ALB/GLOB Ratio 1.2 RATIO (0.9-2.4); AST(SGOT) 37 U/L (15-37); Alanine Aminotransfer ALT/SGPT 58 U/L (16-61); Albumin, Serum 3.8 g/dL (3.2-5.0); Alkaline Phosphatase 91 U/L (45-117); Anion Gap 5 (5-15); BUN 7 mg/dL (7-18); BUN/Creat Ratio 9.3 RATIO (10-20); Calcium,Total 8.8 mg/dL (8.5-10.1); Chloride 104 mmol/L (98-107); Cholesterol 219 mg/dL (200); Creatinine, Serum 0.76 mg/dL (0.70-1.30); EST Glomerular Filtration Rate 119 mL/min (>60); Est Glom Filt Rate - Afr Amer 144 mL/min (>60); Globulin 3.2 g/dL (2.2-4.2); Glucose 180 mg/dL (74-106); High Density Lipoprotein 93 mg/dL; Potassium 3.9 mmol/L (3.5-5.1); Sodium Level 139 mmol/L (136-145); Triglycerides 73 mg/dL; Very Low Density Lipoprotein 15 mg/dL (5-40)
[2020-01-16 12:51] LABS: Hemoglobin A1c 8.9 % (4.2-6.3)
[2020-01-16 13:00] LABS: Microalbumin,Random Urine 21.7 mg/L (NO RANGE EST.); Microalbumin:Creatinine Ratio 53.4 mg/g CRE (<30 mg/g CRE)
== END ==
PROVIDERS: PCP Internal Medicine; Referring Provider Nurse Practitioner; Visit Provider Nurse Practitioner
DX: E10.65 Type 1 diabetes mellitus with hyperglycemia (principal)
CPT/HCPCS: 36415; 80053; 80061; 82043; 82570; 83036